=== PATIENT | female | born 1940 | race Caucasian/White ===

== ENCOUNTER 2021-11-23 04:04 | Inpatient (IN) ==
[2021-11-23 05:06] LABS: Basophils # (auto) 0.02 K/uL (0-0.2); Basophils % (auto) 0.2 %; Eosinophils # (auto) 0.12 K/uL (0-0.50); Eosinophils % (auto) 1.4 %; Hematocrit (blood only) 35.5 % (34.1-44.9); Hemoglobin 11.4 g/dl (12.0-16.0); Immature Granulocytes # (auto) 0.04 K/uL (0.00-0.02); Immature Granulocytes % (auto) 0.5 %; Lymphocytes # (auto) 0.45 K/uL (1.2-3.4); Lymphocytes % (auto) 5.4 %; Mean Corpuscular Hemoglobin 29.3 pg (25.0-34.0); Mean Corpuscular Hgb Conc 32.1 g/dL (32.0-36.0); Mean Corpuscular Volume 91.3 fL (80.0-100.0); Mean Platelet Volume 9.7 fL (9.4-12.3); Monocytes # (auto) 1.09 K/uL (0.24-0.82); Monocytes % (auto) 13.1 %; Neutrophils # (auto) 6.57 K/uL (1.4-6.5); Neutrophils % (auto) 79.4 %; Platelet Count 230 K/uL (130-400); RDW Coefficient of Variation 14.1 % (11.5-14.5); RDW Standard Deviation 47.6 fL (36.4-46.3); Red Blood Count 3.89 M/uL (3.93-5.22); White Blood Count 8.29 K/ul (4.8-10.8)
[2021-11-23 05:36] LABS: Troponin I High Sensitivity 3.5 pg/ml (0-14)
[2021-11-23 05:37] LABS: Alanine Aminotransferase 6 U/L (7-52); Albumin Globulin Ratio 1.7 (0.9-2); Alkaline Phosphatase 70 U/L (34-104); Anion Gap 8 (3-11); Aspartate Aminotransferase 14 U/L (13-39); BUN Creatinine Ratio 26.2 (10-20); Bilirubin,Total 0.8 mg/dl (0.2-1.0); Blood Urea Nitrogen 22 mg/dl (6-23); Calcium 9.1 mg/dl (8.5-10.1); Carbon Dioxide 24 mmol/L (21-32); Chloride 102 mmol/L (98-107); Est GFR (African American) 76.1 ml/min; Est GFR (Non-African American) 65.6 ml/min; Globulin 2.3 gm/dl (2.5-4.0); Glucose 149 mg/dl (70-99(Fasting)); Lipase 130 U/L (11-82); Magnesium 1.8 mg/dl (1.7-2.4); Potassium 4.4 mmol/L (3.5-5.1); Sodium 134 mmol/L (136-145); Total Protein 6.3 gm/dl (6.0-8.3)
--- NOTE | 2021-11-23 07:07 | Emergency Department Note ---
History of Present Illness General Chief complaint: Confusion Stated complaint: CONFUSION Time Seen by Provider: 11/23/21 04:33 Source: patient and family Mode of arrival: EMS Limitations: altered mental status History of Present Illness Provider complaint: Weakness, confusion, COVID This is an 81-year-old female presents emergency department with family at bedside due to concern for increasing weakness and confusion. Patient recently tested and found to be COVID-positive, as were several of her family members with whom she is currently staying. Patient is originally from [place] and is here visiting family. They state patient also has a history of Parkinson's disease. No recent change in medications. They state while patient is sometimes weak due to her Parkinson's, she has been worse since her COVID symptoms began. Patient first began having symptoms on Friday and her first test was negative, however they followed up and had testing done yesterday that was positive. Patient admits to cough, nasal congestion, chills, mild chest discomfort, mild abdominal discomfort, 1 episode of diarrhea. Pt seen during a time of high acuity and national emergency pandemic while wearing PPE. Home Medications Medication Instructions Recorded Confirmed Type carbidopa ER 25 mg-levodopa 100 mg 1.5 tab PO QID 04/21/19 11/23/21 History tablet,extended release coenzyme Q10 100 mg capsule (Co 100 mg PO QDL 04/21/19 11/23/21 History Q-10) docusate sodium 100 mg tablet 100 mg PO DAILY 04/21/19 11/23/21 History losartan 25 mg tablet 25 mg PO TID 04/21/19 11/23/21 History metformin 1,000 mg tablet 1,000 mg PO BID 04/21/19 11/23/21 History montelukast 10 mg tablet 10 mg PO PM 04/21/19 11/23/21 History multivitamin 1 tab PO DAILY 04/21/19 11/23/21 History omeprazole 20 mg tablet,delayed 20 mg PO DAILY 04/21/19 11/23/21 History release rosuvastatin 5 mg tablet 5 mg PO DAILY 04/21/19 11/23/21 History albuterol sulfate 90 mcg/actuation 2 puff inhalation Q4H PRN SOB 03/18/20 11/23/21 History aerosol inhaler aspirin 81 mg tablet,delayed 81 mg PO QAM 03/18/20 11/23/21 History release budesonide-formoterol HFA 160 2 puff inhalation BID 03/18/20 11/23/21 History mcg-4.5 mcg/actuation aerosol inhaler (Symbicort) duloxetine 30 mg capsule,delayed 30 mg PO BID 03/18/20 11/23/21 History release umeclidinium 62.5 mcg/actuation 1 inh inhalation QAM 03/18/20 11/23/21 History blister powder for inhalation (Incruse Ellipta) acetaminophen 500 mg tablet 1,000 mg PO BID 05/04/20 11/23/21 History (Tylenol Extra Strength) bisoprolol 5 1 tab PO DAILY 04/28/21 11/23/21 History mg-hydrochlorothiazide 6.25 mg tablet (Ziac) mirabegron 50 mg tablet,extended 50 mg PO DAILY 04/28/21 11/23/21 History release 24 hr (Myrbetriq) nitroglycerin 0.4 mg sublingual 0.4 mg sublingual UD 04/28/21 11/23/21 History tablet rivastigmine 1 patch transdermal UD 04/28/21 11/23/21 History glimepiride 1 mg tablet 1 mg PO DAILY 05/13/21 11/23/21 History sitagliptin 100 mg tablet (Januvia) 100 mg PO BID 05/13/21 11/23/21 History sulfamethoxazole 800 1 tab PO BID 05/13/21 11/23/21 History mg-trimethoprim 160 mg tablet Allergies Allergy/AdvReac Type Severity Reaction Status Date / Time fluconazole Allergy Severe hives,rash,respiratory Unverified 05/13/21 13:28 difficulty hydrochlorothiazide Allergy Severe Rash Unverified 05/13/21 13:28 triamterene Allergy Severe Rash Unverified 05/13/21 13:28 erythromycin base Allergy Intermediate n/a, rash Unverified 05/13/21 13:28 isosorbide Allergy Intermediate head Unverified 05/13/21 13:28 NSAIDS (Non-Steroidal Allergy Intermediate hives,rash Unverified 05/13/21 13:28 Anti-Inflamma amifostine Allergy Unknown Unverified 05/13/21 13:28 fluticasone Allergy Unknown Unverified 05/13/21 13:28 lisinopril Allergy Unknown Unverified 05/13/21 13:28 Penicillins Allergy Unknown Unverified 05/13/21 13:28 ethyl alcohol AdvReac Unknown Unverified 05/13/21 13:28 Past Med/Surg History Medical History (Updated 11/25/21 @ 17:21 by Annmarie Calderon DO) Anxiety Asthma CAD (coronary artery disease) COPD (chronic obstructive pulmonary disease) Diabetes mellitus, type II GERD (gastroesophageal reflux disease) History of TIA (transient ischemic attack) Hyperlipidemia Hypertension Multiple fractures of ribs of left side Parkinson's disease Surgical History (Updated 11/23/21 @ 10:43 by Shruthi Terry PA-C) Hx of appendectomy S/P cholecystectomy Stented coronary artery Family History (Updated 11/23/21 @ 10:43 by Shruthi Terry PA-C) Other Diabetes Heart disease Hypertension Social History (Updated 11/23/21 @ 10:43 by Shruthi Terry PA-C) Smoking Status: Former smoker Tobacco Type: Cigarettes Second Hand Exposure: No; Do You Dip or Chew Tobacco: No; Tobacco Cessation Education Requested by Patient: No Hx Alcohol Use: No Hx Substance Use: No Preferred Language: Czech Communication Ability: Impaired marital status: Single Current Living Situation: Alone current occupational status: retired 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[employer] [place] How many Children do You have: 0 Other Information That Helps Us Care for You: No Feels Safe at Home: Yes Safety Concerns: Feels Safe At This Time Assistive Devices: Walker Review of Systems A total of 10 systems reviewed and were otherwise negative All systems reviewed & are unremarkable except as noted in HPI & below Physical Exam Vital Signs Vital Signs - 24 hr 11/23/21 04:08 11/23/21 04:46 11/23/21 05:00 Temperature 37.1 C Temperature Source Oral Pulse Rate 71 70 69 Pulse Rate from SpO2 Sensor Respiratory Rate 16 23 29 H Respiratory Effort / Characteristics Non-Labored Respiratory Depth Normal Respiratory Pattern Regular Blood Pressure 156/69 H Blood Pressure Mean 98 Blood Pressure Position Sitting Pulse Oximetry 97 Oxygen Delivery Method Room Air Sepsis Recent Fever Within 48 Hours No Sepsis New/Unexplained Change in Mental Status N/A Sepsis Action Taken by Nursing No Action Required 11/23/21 05:30 11/23/21 06:04 11/23/21 06:05 Temperature Temperature Source Pulse Rate 66 Pulse Rate from SpO2 Sensor 74 74 Respiratory Rate 28 H 27 H 25 H Respiratory Effort / Characteristics Respiratory Depth Respiratory Pattern Blood Pressure Blood Pressure Mean Blood Pressure Position Pulse Oximetry 97 98 Oxygen Delivery Method Sepsis Recent Fever Within 48 Hours Sepsis New/Unexplained Change in Mental Status Sepsis Action Taken by Nursing 11/23/21 06:05 11/23/21 06:30 11/23/21 07:00 Temperature Temperature Source Pulse Rate Pulse Rate from SpO2 Sensor 69 Respiratory Rate 26 H 23 Respiratory Effort / Characteristics Respiratory Depth Respiratory Pattern Blood Pressure 172/72 H Blood Pressure Mean 105 Blood Pressure Position Pulse Oximetry 98 Oxygen Delivery Method Sepsis Recent Fever Within 48 Hours Sepsis New/Unexplained Change in Mental Status Sepsis Action Taken by Nursing GENERAL: alert, unwell appearing, well nourished, no distress, non-toxic EYE EXAM: normal conjunctiva, PERRL and EOM's grossly intact OROPHARYNX: no exudate, no erythema, lips, buccal mucosa, and tongue normal and mucous membranes are moist NECK: supple, no nuchal rigidity, no adenopathy, non-tender LUNGS: Clear to auscultation. Normal chest wall mechanics, no w/r/r HEART: no murmurs, S1 normal and S2 normal ABDOMEN: abdomen soft, non-tender, normo-active bowel sounds, no masses, no rebound or guarding. BACK: Back is symmetrical on inspection and there is no deformity, no midline tenderness, no CVA tenderness. SKIN: no rashes and no bruising UPPER EXTREMITIES: upper extremities are grossly normal. FROM, nml pulses b/l. LOWER EXTREMITIES: No pitting edema. FROM, nml pulses b/l. NEURO EXAM: Normal sensorium, cranial nerves II-XII grossly intact, normal speech, no gross weakness of arms, no gross weakness of legs. Gross sensation intact. Course Administered Medications Acetaminophen (Acetaminophen 500 Mg Tab) 1,000 mg PO BID [facility] Stop: 12/23/21 20:59 Last Admin: 11/25/21 08:27 Dose: Not Given Documented By: Admin: 11/24/21 20:48 Dose: Not Given Documented By: Admin: 11/24/21 08:45 Dose: 1,000 mg Documented By: [id number] Admin: 11/23/21 23:14 Dose: 1,000 mg Documented By: ANTONINA Aspirin (Aspirin 81 Mg Ectab) 81 mg PO QAM [facility] Stop: 12/23/21 18:08 Last Admin: 11/25/21 08:21 Dose: 81 mg Documented By: Admin: 11/24/21 08:46 Dose: 81 mg Documented By: [id number] Admin: 11/23/21 23:15 Dose: 81 mg Documented By: ANTONINA Bisoprolol Fumarate (Bisoprolol Fumarate 5 Mg Tab) 5 mg PO DAILY [facility] Stop: 12/24/21 08:59 Last Admin: 11/25/21 08:22 Dose: 5 mg Documented By: Admin: 11/24/21 08:47 Dose: 5 mg Documented By: [id number] Carbidopa/Levodopa (Carbidopa/Levodopa 25/100mg Ext Rel Tab) 1.5 tab PO 1200,1600,2000 [facility] Stop: 12/23/21 19:59 Last Admin: 11/25/21 12:11 Dose: 1.5 tab Documented By: Admin: 11/24/21 20:31 Dose: 1.5 tab Documented By: Admin: 11/24/21 17:25 Dose: 1.5 tab Documented By: [id number] Admin: 11/24/21 12:27 Dose: 1.5 tab Documented By: [id number] Admin: 11/23/21 23:14 Dose: 1.5 tab Documented By: ANTONINA Carbidopa/Levodopa (Carbidopa/Levodopa 25/100mg Ext Rel Tab) 2 tab PO 0800 [facility] Stop: 12/24/21 07:59 Last Admin: 11/25/21 08:23 Dose: 2 tab Documented By: Admin: 11/24/21 08:46 Dose: 2 tab Documented By: [id number] Duloxetine HCl (Duloxetine Hcl 30 Mg Cap) 30 mg PO BID [facility] Stop: 12/23/21 20:59 Last Admin: 11/25/21 08:21 Dose: 30 mg Documented By: Admin: 11/24/21 20:35 Dose: 30 mg Documented By: Admin: 11/24/21 08:45 Dose: 30 mg Documented By: [id number] Admin: 11/23/21 23:15 Dose: 30 mg Documented By: ANTONINA Fluticasone/Vilanterol (Fluticasone/Vilanterol 200/25mcg 14 Puffs/Inhaler) 1 puffs INH DAILY [facility] Stop: 12/24/21 08:59 Last Admin: 11/25/21 08:25 Dose: 1 puffs Documented By: Admin: 11/24/21 08:46 Dose: 1 puffs Documented By: [id number] Heparin Sodium (Porcine) (Heparin Sod 5,000 Unit/0.5 Ml Vial) 5,000 units SQ Q8 [facility] Stop: 12/23/21 21:59 Last Admin: 11/25/21 14:34 Dose: 5,000 units Documented By: Admin: 11/25/21 04:52 Dose: 5,000 units Documented By: Admin: 11/24/21 20:50 Dose: 5,000 units Documented By: Admin: 11/24/21 15:42 Dose: 5,000 units Documented By: [id number] Admin: 11/24/21 05:29 Dose: 5,000 units Documented By: Admin: 11/23/21 23:15 Dose: 5,000 units Documented By: ANTONINA Hydrochlorothiazide (Hydrochlorothiazide 25 Mg Tab) 6.25 mg PO DAILY [facility] Stop: 12/24/21 08:59 Last Admin: 11/25/21 08:22 Dose: 6.25 mg Documented By: Admin: 11/24/21 08:47 Dose: 6.25 mg Documented By: [id number] Insulin Aspart (Insulin Aspart Per Unit) 0 units SC ACHS [facility] Stop: 12/23/21 18:08 Last Admin: 11/25/21 12:24 Dose: 2 units Documented By: CHRIS Co-signed By: [id number] Admin: 11/25/21 09:57 Dose: 1 units Documented By: CHRIS Co-signed By: [id number] Admin: 11/24/21 20:35 Dose: Not Given Documented By: Admin: 11/24/21 17:32 Dose: 2 units Documented By: [id number] Co-signed By: CHRIS Admin: 11/24/21 12:27 Dose: 2 units Documented By: [id number] Co-signed By: CHRIS Admin: 11/24/21 08:45 Dose: Not Given Documented By: [id number] Admin: 11/23/21 23:16 Dose: Not Given Documented By: Admin: 11/23/21 23:16 Dose: Not Given Documented By: ANTONINA Losartan Potassium (Losartan Potassium 25 Mg Tab) 25 mg PO TID [facility] Stop: 12/23/21 18:59 Last Admin: 11/25/21 14:34 Dose: 25 mg Documented By: Admin: 11/25/21 08:21 Dose: 25 mg Documented By: Admin: 11/24/21 20:40 Dose: 25 mg Documented By: Admin: 11/24/21 15:42 Dose: 25 mg Documented By: [id number] Admin: 11/24/21 08:46 Dose: 25 mg Documented By: [id number] Admin: 11/23/21 23:15 Dose: 25 mg Documented By: ANTONINA Mirabegron (Mirabegron Er 25 Mg Tab) 50 mg PO DAILY [facility] Stop: 12/24/21 08:59 Last Admin: 11/25/21 08:23 Dose: 50 mg Documented By: Admin: 11/24/21 08:47 Dose: 50 mg Documented By: [id number] Miscellaneous (Remove Patch) 1 each N/A Q24H [facility] Stop: 12/25/21 08:58 Last Admin: 11/25/21 08:27 Dose: Not Given Documented By: CHRIS Montelukast Sodium (Montelukast Sodium 10 Mg Tablet) 10 mg PO PM [facility] Stop: 12/23/21 20:59 Last Admin: 11/24/21 20:41 Dose: 10 mg Documented By: Admin: 11/23/21 23:15 Dose: 10 mg Documented By: ANTONINA Multivitamins (Multivitamin Tab) 1 tab PO DAILY [facility] Stop: 12/24/21 08:59 Last Admin: 11/25/21 08:23 Dose: 1 tab Documented By: Admin: 11/24/21 08:47 Dose: 1 tab Documented By: [id number] Pantoprazole Sodium (Pantoprazole 40 Mg Tab) 40 mg PO DAILY [facility] Stop: 12/24/21 08:59 Last Admin: 11/25/21 08:23 Dose: 40 mg Documented By: Admin: 11/24/21 08:47 Dose: 40 mg Documented By: [id number] Rivastigmine (Rivastigmine Patch) 1 patch TD Q24H [facility] Stop: 12/25/21 08:59 Last Admin: 11/25/21 08:26 Dose: 1 patch Documented By: CHRIS Rosuvastatin Calcium (Rosuvastatin Calcium 5 Mg Tab) 5 mg PO DAILY [facility] Stop: 12/24/21 08:59 Last Admin: 11/25/21 08:22 Dose: 5 mg Documented By: Admin: 11/24/21 08:47 Dose: 5 mg Documented By: [id number] Umeclidinium Barling (Umeclidinium Barling 62.5mcg/Blister 7 Puffs/Inhaler) 1 puffs INH QAM [facility] Stop: 12/24/21 08:59 Last Admin: 11/25/21 08:25 Dose: 1 puffs Documented By: Admin: 11/24/21 08:47 Dose: 1 puffs Documented By: [id number] Discontinued Medications Bisoprolol Fumarate (Bisoprolol Fumarate 5 Mg Tab) 5 mg PO ONE ONE Stop: 11/23/21 10:31 Last Admin: 11/23/21 12:10 Dose: 5 mg Documented By: SULTANA Carbidopa/Levodopa (Carbidopa/Levodopa 25/100mg Tab) 2 tab PO ONE ONE Stop: 11/23/21 10:31 Last Admin: 11/23/21 12:09 Dose: 2 tab Documented By: SULTANA Duloxetine HCl (Duloxetine Hcl 30 Mg Cap) 30 mg PO ONE ONE Stop: 11/23/21 10:11 Last Admin: 11/23/21 12:08 Dose: 30 mg Documented By: SULTANA Gadobutrol (Gadobutrol 65ml Vial) 8 ml IV ONCE ONE Stop: 11/23/21 18:10 Last Admin: 11/23/21 18:10 Dose: 8 ml Documented By: TAB Hydrochlorothiazide (Hydrochlorothiazide 25 Mg Tab) 6.25 mg PO ONE ONE Stop: 11/23/21 10:16 Last Admin: 11/23/21 12:09 Dose: 6.25 mg Documented By: SULTANA Sodium Chloride (Nss 1000ml) 1,000 mls @ 100 mls/hr IV .Q10H [facility] Stop: 11/23/21 16:13 Last Infusion: 11/23/21 20:33 Dose: 0 mls/hr Documented By: Admin: 11/23/21 07:58 Dose: 125 mls/hr Documented By: DANNY Lorazepam (Lorazepam 2 Mg/1 Ml Vial) 0.5 mg IV NOW STA; Protocol Stop: 11/23/21 10:13 Last Admin: 11/23/21 12:08 Dose: 0.5 mg Documented By: SULTANA Losartan Potassium (Losartan Potassium 25 Mg Tab) 25 mg PO ONE ONE Stop: 11/23/21 10:31 Last Admin: 11/23/21 12:09 Dose: 25 mg Documented By: SULTANA Miscellaneous (Rivastigmine 9.5mg/24 Hour Patch: Order Awaiting Action) 1 each N/A QS [facility] Stop: 12/24/21 07:59 Last Admin: 11/24/21 08:46 Dose: Not Given Documented By: [id number] Medical Decision Making Differential Diagnosis Differential Diagnosis includes but is not limited to dehydration, stroke, anemia, hypoglycemia, hyponatremia, hypernatremia, urinary tract infection, pneumonia, bronchitis, sepsis, gastroenteritis, additional abdominal pathology, metabolic abnormalities and infections. Medical Records Attestation: I reviewed the patient's medical records. Home Medications Current Medication List: was personally reviewed by me Laboratory Data Attestation: I reviewed the patient's lab results. Result diagrams: 11/23/21 04:55 11/25/21 08:23 Lab Results 11/23/21 11/23/21 11/23/21 Range/Units 04:55 04:55 04:55 WBC 8.29 (4.8-10.8) K/ul RBC 3.89 L (3.93-5.22) M/uL Hgb 11.4 L (12.0-16.0) g/dl Hct 35.5 (34.1-44.9) % MCV 91.3 (80.0-100.0) fL MCH 29.3 (25.0-34.0) pg MCHC 32.1 (32.0-36.0) g/dL RDW Std Deviation 47.6 H (36.4-46.3) fL RDW Coeff of Jayden 14.1 (11.5-14.5) % Plt Count 230 (130-400) K/uL MPV 9.7 (9.4-12.3) fL Immature Gran % (Auto) 0.5 % Neut % (Auto) 79.4 % Lymph % (Auto) 5.4 % [place] % (Auto) 13.1 % Eos % (Auto) 1.4 % Baso % (Auto) 0.2 % Neut # (Auto) 6.57 H (1.4-6.5) K/uL Lymph # (Auto) 0.45 L (1.2-3.4) K/uL [place] # (Auto) 1.09 H (0.24-0.82) K/uL Eos # (Auto) 0.12 (0-0.50) K/uL Baso # (Auto) 0.02 (0-0.2) K/uL Immature Gran # (Auto) 0.04 H (0.00-0.02) K/uL Sodium 134 L (136-145) mmol/L Potassium 4.4 (3.5-5.1) mmol/L Chloride 102 (98-107) mmol/L Carbon Dioxide 24 (21-32) mmol/L Anion Gap 8 (3-11) BUN 22 (6-23) mg/dl Creatinine 0.84 (0.6-1.2) mg/dl Est Cr Clr Drug Dosing Not Reportable Est GFR ( Amer) 76.1 ml/min Est GFR (Non-Af Amer) 65.6 ml/min BUN/Creatinine Ratio 26.2 H (10-20) Glucose 149 H (70-99(Fasting)) mg/dl Calcium 9.1 (8.5-10.1) mg/dl Magnesium 1.8 (1.7-2.4) mg/dl Total Bilirubin 0.8 (0.2-1.0) mg/dl AST 14 (13-39) U/L ALT 6 L (7-52) U/L Alkaline Phosphatase 70 (34-104) U/L Troponin I High Sens 3.5 (0-14) pg/ml Total Protein 6.3 (6.0-8.3) gm/dl Albumin 4.0 (3.4-5.0) gm/dl Globulin 2.3 L (2.5-4.0) gm/dl Albumin/Globulin Ratio 1.7 (0.9-2) Lipase 130 H (11-82) U/L TSH 0.569 (0.300-4.500) uIu/ml SARS-CoV-2 (PCR) (Negative) Influenza Type A (PCR) (Neg) Influenza Type B (PCR) (Neg) RSV (RT-PCR) (Neg) 11/23/21 Range/Units 07:26 WBC (4.8-10.8) K/ul RBC (3.93-5.22) M/uL Hgb (12.0-16.0) g/dl Hct (34.1-44.9) % MCV (80.0-100.0) fL MCH (25.0-34.0) pg MCHC (32.0-36.0) g/dL RDW Std Deviation (36.4-46.3) fL RDW Coeff of Jayden (11.5-14.5) % Plt Count (130-400) K/uL MPV (9.4-12.3) fL Immature Gran % (Auto) % Neut % (Auto) % Lymph % (Auto) % [place] % (Auto) % Eos % (Auto) % Baso % (Auto) % Neut # (Auto) (1.4-6.5) K/uL Lymph # (Auto) (1.2-3.4) K/uL [place] # (Auto) (0.24-0.82) K/uL Eos # (Auto) (0-0.50) K/uL Baso # (Auto) (0-0.2) K/uL Immature Gran # (Auto) (0.00-0.02) K/uL Sodium (136-145) mmol/L Potassium (3.5-5.1) mmol/L Chloride (98-107) mmol/L Carbon Dioxide (21-32) mmol/L Anion Gap (3-11) BUN (6-23) mg/dl Creatinine (0.6-1.2) mg/dl Est Cr Clr Drug Dosing Est GFR ( Amer) ml/min Est GFR (Non-Af Amer) ml/min BUN/Creatinine Ratio (10-20) Glucose (70-99(Fasting)) mg/dl Calcium (8.5-10.1) mg/dl Magnesium (1.7-2.4) mg/dl Total Bilirubin (0.2-1.0) mg/dl AST (13-39) U/L ALT (7-52) U/L Alkaline Phosphatase (34-104) U/L Troponin I High Sens (0-14) pg/ml Total Protein (6.0-8.3) gm/dl Albumin (3.4-5.0) gm/dl Globulin (2.5-4.0) gm/dl Albumin/Globulin Ratio (0.9-2) Lipase (11-82) U/L TSH (0.300-4.500) uIu/ml SARS-CoV-2 (PCR) POSITIVE A* (Negative) Influenza Type A (PCR) Negative (Neg) Influenza Type B (PCR) Negative (Neg) RSV (RT-PCR) Negative (Neg) Imaging Data My Impression: X-ray: I interpreted the following studies. Chest: A single view study of the chest was reviewed and was negative for cardiomegaly, focal infiltrate, pulmonary edema, or wide mediastinum. Questionable small left pleural effusion. Radiologist's Impression: Head CT 11/23/21 04:[address] DOSE: 921.40 mGy.cm HISTORY: confusion TECHNIQUE: Multiaxial CT images of the head were performed without the use of intravenous contrast. Automated exposure control was utilized for this study. A dose lowering technique was utilized adhering to the principles of ALARA. Comparison: Head CT 05/13/2021. Findings: The paranasal sinuses and mastoid air cells are clear. The calvarium and skull base are intact. There is no mass, hematoma, midline shift, acute infarct. White matter hypodensity is nonspecific but suggestive of microvascular ischemic change. The ventricles and sulci demonstrate mild age-related involutional changes. Motion artifact. 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 Impression: No significant change compared to the prior study. No acute intracranial abn ormality. Mild motion artifact ACT 112: Negative or not required by law. Electronically signed by: Fermin Chavarria M.D. 11/23/2021 7:[address] head: No acute intracranial hemorrhage. No midline shift or mass-effect. 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 Age- related cerebral volume loss. Periventricular and subcortical white matter hypoattenuation, consistent with chronic microangiopathy. Radiologist: Jairo Arias MD ECG Data Attestation: I personally reviewed and interpreted this ECG as follows: Indication: + weakness Rate (beats per minute): 68 Rhythm: + normal sinus ECG Intervals/blocks: + Normal QRS and + Normal QT ECG [place]: + Normal ECG ST segments: + Nonspecific ST abnormalities MDM Narrative An order was placed for continuous cardiac monitoring. The monitor shows a rate of _62__ with _normal sinus__ rhythm. This is an elderly female who presents for increased weakness and mild confusion with recent +COVID test. Patient lives with family who also tested positive. Patient oriented in the ER and able to answer questions. No focal neuro deficit. VS stable. Labs sent, cxr and CT head performed and reassuring. Gentle IVF hydration started. Case discussed with the hospitalist for additional evaluation/treatment. Impression & Plan Generalized weakness, Hyponatremia, Transient confusion, Hyperglycemia, COVID- 19 Discharge Plan Visit Data Chief Complaint: Confusion Stated Complaint: CONFUSION ED Provider: Annmarie Calderon Discharge Problem: Generalized weakness, Hyponatremia, Transient confusion, Hyperglycemia, COVID- 19 Patient Disposition: Admitted As Inpatient Discharge Instructions Interventions: ED Discharge Assessment Last Done: 11/23/21 10:31
[2021-11-23] MEDS ORDERED: SODIUM CHLORIDE 0.9% 1000ML 1,000 ML IV SCH (07:15)
--- NOTE | 2021-11-23 07:28 | CT Scan Report ---
HEAD CT NONCONTRAST CT DOSE: 921.40 mGy.cm HISTORY: confusion TECHNIQUE: Multiaxial CT images of the head were performed without the use of intravenous contrast. A utomated exposure control was utilized for this study. A dose lowering technique was utilized adheri ng to the principles of ALARA. Comparison: Head CT 05/13/2021. Findings: The paranasal sinuses and mastoid air cells are clear. The calvarium and skull base are int act. There is no mass, hematoma, midline shift, acute infarct. White matter hypodensity is nonspecifi c but suggestive of microvascular ischemic change. The ventricles and sulci demonstrate mild age-rela brayan involutional changes. Motion artifact. 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 Impression: No significant change compared to the prior study. No acute intracranial abnormality. Mild motion art ifact ACT 112: Negative or not required by law. Electronically signed by: Fermin Chavarria M.D. 11/23/2021 7:26 AM
[2021-11-23 08:23] LABS: Influenza A virus by PCR Negative (Neg); Influenza B virus by PCR Negative (Neg); RSV by PCR Negative (Neg)
[2021-11-23 08:25] LABS: SARS CoV2 RNA(COVID-19) InHosp POSITIVE (Negative)
--- NOTE | 2021-11-23 08:51 | XRay Report ---
XR chest 1V portable HISTORY: cough, COVID COMPARISON: Chest and left rib series 05/04/2019. FINDINGS: No pneumothorax. No right pleural effusion. The cardiac silhouette is top normal in size. T here are low lung volumes. No evidence for pulmonary edema. The right lung is clear. Hazy appearance to left lung base with mild blunting of the costophrenic sulcus. This could represent atelectasis, mi ld pneumonitis, or trace left pleural effusion. IMPRESSION: Hazy appearance to left lung base with mild blunting of the costophrenic sulcus. This could represent atelectasis, mild pneumonitis, or trace left pleural effusion. ACT 112: Negative or not required by law. Electronically signed by: Fermin Chavarria M.D. 11/23/2021 8:49 AM
--- NOTE | 2021-11-23 09:06 | History & Physical Report ---
Date of Service November 23, 2021 Assessment & Plan (1) COVID-19: (2) Asthma: (3) COPD (chronic obstructive pulmonary disease): Plan: This is an 81yo F from [place] in town to see family with a PMH of Parkinson's disease, type 2 diabetes, history of TIA, hypertension, CAD, dementia, asthma/COPD, anxiety and other medical problems listed below who presents with cough and congestion as well as confusion over the past few days in the setting of covid. Covid symptoms of congestion and cough x 1 week Saturating at 96% on room air No indication to begin dexamethasone or remdesivir at this time Isolation precautions, continue home inhalers, duo nebs QID PRN for SOB or wh eezing (4) Delirium: (5) Generalized weakness: (6) Parkinson's disease: Plan: Mild component of delirium and generalized weakness present, with underlying Parkinson's disease Per family, patient has "good and bad days" and is seemed more confused with COVID-19 infection Continue reorientation, redirection. Given missed a.m. dose of Sinemet Avoiding Zyprexa due to interaction with Sinemet CT head without acute intracranial abnormality. No focal deficits Fall precautions, PT OT evaluation (7) History of TIA (transient ischemic attack): Plan: Continue aspirin, statin. No focal deficits noted (8) CAD (coronary artery disease): Plan: History of coronary stents in the past few years in [place] Continue aspirin, statin (9) Hypertension: Plan: BP elevated 176/115 in ED in setting of anxiety, delirium and missed a.m. medications Given stat doses of bisoprololhydrochlorothiazide and losartan Continue to monitor blood pressure, add as needed agents if indicated (10) Diabetes mellitus, type II: Plan: Check A1c on a.m. labs Hold home agents SSI while in-patient BSG AC HS (11) Anxiety: Plan: Continue duloxetine. Encourage redirection and reassurance DVT Ppx: SQ heparin Code status: FULL PCP: Patient lives in [place] and is here visiting family Dispo: Admitted to med/surg Patient seen in collaboration with Dr. Field. Please see addendum. History of Present Illness Chief Complaint: confusion, generalized weakness Primary Care Provider: NO PCP This is an 81yo F with a PMH of Parkinson's disease, type 2 diabetes, history of TIA, hypertension, CAD, dementia, asthma/COPD, anxiety and other medical problems listed below who presents with cough and congestion as well as confusion over the past few days. Patient lives in [place] and is visiting her sisters who live locally. Family member started to test positive for COVID last weekend and patient had cough and congestion. Tested positive on 11/20/2021 but began noticing symptoms as early as last weekend. Continues to have malaise, productive cough. Presence of pink-tinged sputum x1 in ED approximately half a teaspoon. Also endorsing generalized weakness and worsened confusion, per sisters at bedside. With underlying Parkinson's dementia, patient has "on and off days" and yesterday was an off day. With both sisters in their 80s also having COVID right now, they feel it is too difficult to care for her at home. Receives all care in [place] where she is from. Denies fall but sometimes needs to crawl into bed due to weakness in setting of Parkinson's. Has not taken any morning medications today. Also endorsing left lower abdominal pain. No fever, chills, chest pain, wheezing, nausea, vomiting, dysuria or diarrhea. Allergies Allergy/AdvReac Type Severity Reaction Status Date / Time fluconazole Allergy Severe hives,rash,respiratory Unverified 05/13/21 13:28 difficulty hydrochlorothiazide Allergy Severe Rash Unverified 05/13/21 13:28 triamterene Allergy Severe Rash Unverified 05/13/21 13:28 erythromycin base Allergy Intermediate n/a, rash Unverified 05/13/21 13:28 isosorbide Allergy Intermediate head Unverified 05/13/21 13:28 NSAIDS (Non-Steroidal Allergy Intermediate hives,rash Unverified 05/13/21 13:28 Anti-Inflamma amifostine Allergy Unknown Unverified 05/13/21 13:28 fluticasone Allergy Unknown Unverified 05/13/21 13:28 lisinopril Allergy Unknown Unverified 05/13/21 13:28 Penicillins Allergy Unknown Unverified 05/13/21 13:28 ethyl alcohol AdvReac Unknown Unverified 05/13/21 13:28 Home Medications Medication Instructions Recorded Confirmed Type carbidopa ER 25 mg-levodopa 100 mg 1.5 tab PO QID 04/21/19 11/23/21 History tablet,extended release coenzyme Q10 100 mg capsule (Co 100 mg PO QDL 04/21/19 11/23/21 History Q-10) docusate sodium 100 mg tablet 100 mg PO DAILY 04/21/19 11/23/21 History losartan 25 mg tablet 25 mg PO TID 04/21/19 11/23/21 History metformin 1,000 mg tablet 1,000 mg PO BID 04/21/19 11/23/21 History montelukast 10 mg tablet 10 mg PO PM 04/21/19 11/23/21 History multivitamin 1 tab PO DAILY 04/21/19 11/23/21 History omeprazole 20 mg tablet,delayed 20 mg PO DAILY 04/21/19 11/23/21 History release rosuvastatin 5 mg tablet 5 mg PO DAILY 04/21/19 11/23/21 History albuterol sulfate 90 mcg/actuation 2 puff inhalation Q4H PRN SOB 03/18/20 11/23/21 History aerosol inhaler aspirin 81 mg tablet,delayed 81 mg PO QAM 03/18/20 11/23/21 History release budesonide-formoterol HFA 160 2 puff inhalation BID 03/18/20 11/23/21 History mcg-4.5 mcg/actuation aerosol inhaler (Symbicort) duloxetine 30 mg capsule,delayed 30 mg PO BID 03/18/20 11/23/21 History release umeclidinium 62.5 mcg/actuation 1 inh inhalation QAM 03/18/20 11/23/21 History blister powder for inhalation (Incruse Ellipta) acetaminophen 500 mg tablet 1,000 mg PO BID 05/04/20 11/23/21 History (Tylenol Extra Strength) bisoprolol 5 1 tab PO DAILY 04/28/21 11/23/21 History mg-hydrochlorothiazide 6.25 mg tablet (Ziac) mirabegron 50 mg tablet,extended 50 mg PO DAILY 04/28/21 11/23/21 History release 24 hr (Myrbetriq) nitroglycerin 0.4 mg sublingual 0.4 mg sublingual UD 04/28/21 11/23/21 History tablet rivastigmine 1 patch transdermal UD 04/28/21 11/23/21 History glimepiride 1 mg tablet 1 mg PO DAILY 05/13/21 11/23/21 History sitagliptin 100 mg tablet (Januvia) 100 mg PO BID 05/13/21 11/23/21 History sulfamethoxazole 800 1 tab PO BID 05/13/21 11/23/21 History mg-trimethoprim 160 mg tablet Past Med/Surg History Medical History (Updated 11/23/21 @ 11:02 by Shruthi Terry PA-C) Anxiety Asthma CAD (coronary artery disease) COPD (chronic obstructive pulmonary disease) Diabetes mellitus, type II GERD (gastroesophageal reflux disease) History of TIA (transient ischemic attack) Hyperlipidemia Hypertension Multiple fractures of ribs of left side Parkinson's disease Surgical History (Updated 11/23/21 @ 10:43 by Shruthi Terry PA-C) Hx of appendectomy S/P cholecystectomy Stented coronary artery Family History (Updated 11/23/21 @ 10:43 by Shruthi Terry PA-C) Other Diabetes Heart disease Hypertension Social History (Updated 11/23/21 @ 10:43 by Shruthi Terry PA-C) Smoking Status: Former smoker Tobacco Type: Cigarettes Second Hand Exposure: No; Do You Dip or Chew Tobacco: No; Tobacco Cessation Education Requested by Patient: No Hx Alcohol Use: No Hx Substance Use: No Preferred Language: Mohawk marital status: / Current Living Situation: Alone current occupational status: retired 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 Physical Exam Physical Exam: General Appearance: WD/WN, vitals as above, NAD, sitting up in bed, pleasant, conversing easily Head: normocephalic, atraumatic Eyes: normal inspection, PERRL, conjunctivae normal, anicteric sclerae ENT: hard of hearing, external ear and nose normal, oropharynx normal Neck: normal visual inspection, trachea midline, no thyromegaly Respiratory: normal respiratory effort, lungs clear to auscultation, no wheeze, rales, rhonchi. No accessory muscle use Cardiovascular: regular rate, rhythm, no murmur, normal peripheral pulses, no BLE edema. Vessels: no JVD Chest: normal inspection of chest Abdomen/GI: normal bowel sounds, soft, nontender, no hepatosplenomegaly Extremities/Musculoskeletal: no cyanosis or clubbing, extremities motor strength 5/5 Neurologic: PERRL, EOMI, accommodation nl, no face palsy, no dysarthria, CN's II-XI intact bilaterally and moves all extremities. +motor delay in setting of PD Psychiatric: A+Ox 2, answers questions appropriately, pleasantly confused with situation Skin: no rashes, normal color, warm/dry Results & Data Results & Data ([facility]) Vital Signs (Past 12 Hours) Vital Signs Temp Pulse Pulse Resp BP BP Pulse Ox 11/23/21 08:00 73 22 157/82 H 95 11/23/21 07:30 24 11/23/21 07:00 23 11/23/21 06:30 26 H 98 11/23/21 06:05 172/72 H 11/23/21 06:05 25 H 98 11/23/21 06:04 27 H 97 11/23/21 05:30 66 28 H 11/23/21 05:00 69 29 H 11/23/21 04:46 70 23 11/23/21 04:08 37.1 C 71 16 156/69 H 97 O2 Del Method 11/23/21 08:00 Room Air 11/23/21 07:30 11/23/21 07:00 11/23/21 06:30 11/23/21 06:05 11/23/21 06:05 11/23/21 06:04 11/23/21 05:30 11/23/21 05:00 11/23/21 04:46 11/23/21 04:08 Room Air Laboratory Results Short CBC 11/23/21 Range/Units 04:55 WBC 8.29 (4.8-10.8) K/ul Hgb 11.4 L (12.0-16.0) g/dl Hct 35.5 (34.1-44.9) % Plt Count 230 (130-400) K/uL BMP 11/23/21 04:55 Sodium 134 L Potassium 4.4 Chloride 102 Carbon Dioxide 24 BUN 22 Creatinine 0.84 Glucose 149 H Calcium 9.1 Liver Function 11/23/21 Range/Units 04:55 Total Bilirubin 0.8 (0.2-1.0) mg/dl AST 14 (13-39) U/L ALT 6 L (7-52) U/L Alkaline Phosphatase 70 (34-104) U/L Albumin 4.0 (3.4-5.0) gm/dl Urine 11/23/21 Range/Units 09:23 Urine Color Yellow Urine Appearance Clear (Clear) Urine pH 6.5 (4.5-7.5) Ur Specific [place] 1.020 (1.000-1.030) Urine Protein Negative (Negative) Urine Glucose (UA) Negative (Negative) Diagnostic Findings Chest X-Ray 11/23/21 04:57 XR chest 1V portable HISTORY: cough, COVID COMPARISON: Chest and left rib series 05/04/2019. FINDINGS: No pneumothorax. No right pleural effusion. The cardiac silhouette is top normal in size. There are low lung volumes. No evidence for pulmonary edema. The right lung is clear. Hazy appearance to left lung base with mild blunting of the costophrenic sulcus. This could represent atelectasis, mild pneumonitis, or trace left pleural effusion. IMPRESSION: Hazy appearance to left lung base with mild blunting of the costophrenic sulcus. This could represent atelectasis, mild pneumonitis, or trace left pleural effusion. ACT 112: Negative or not required by law. Electronically signed by: Fermin Chavarria M.D. 11/23/2021 8:[address] 11/23/21 04:[address] DOSE: 921.40 mGy.cm HISTORY: confusion TECHNIQUE: Multiaxial CT images of the head were performed without the use of intravenous contrast. Automated exposure control was utilized for this study. A dose lowering technique was utilized adhering to the principles of ALARA. Comparison: Head CT 05/13/2021. Findings: The paranasal sinuses and mastoid air cells are clear. The calvarium and skull base are intact. There is no mass, hematoma, midline shift, acute infarct. White matter hypodensity is nonspecific but suggestive of microvascular ischemic change. The ventricles and sulci demonstrate mild age-related involutional changes. Motion artifact. 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 Impression: No significant change compared to the prior study. No acute intracranial abnormality. Mild motion artifact ACT 112: Negative or not required by law. Electronically signed by: Fermin Chavarria M.D. 11/23/2021 7:26 AM Code Status & VTE Plan VTE Prophylaxis Plan VTE Prophylaxis will be ordered: Yes Supervising Physician Co-Signing Physician Notes Patient was seen and examined independently at bedside. Chart reviewed. Case discussed with Shruthi Terry PA-C and agree with the documentation above. In summary, this is a 81 year old female with Parkinson's disease, COPD, cognitive impairment, from [place] but currently visiting her sister here in [place], was brought to the ED for evaluation after she was tested positive for COVID 19. Sisters at bedside who state that the patient being from [place], could not avail the medical care from her doctors in [place] or the patient's sister's doctor here in [place]. They were concerned about her COVID diagnosis on top of her other medical comorbidities and brought to ED for evaluation as they were concerned about her. No fever, chills, dyspnea, hypoxia. COPD at baseline with no wheezes and no exacerbation. Has some cough. During my encounter, she is awake, alert, sitting in bed, following commands, not restless or agitated. Breathing comfortably, saturating well in room air. Decreased breath sounds but no wheezes or crackles. Normal heart sounds, abd benign, no LE edema. Labs reviewed. CXR reviewed. CT head reviewed. In regards to her Parkinson's, she has on and off days and events of last night seemed to be similar to her off day events per family. Continue her parkinson's medications. Delirium precautions. Fall precautions. PT/OT eval. Rest as per the note above.
[2021-11-23 09:55] LABS: Appearance Urine Clear (Clear); Bacteria Urine Automated Negative (Negative); Bilirubin Urine Negative (Negative); Blood Urine Trace (Negative); Cast Urine Automated 0 /lpf (0-5); Color Urine Yellow; Epithelial Cell Urine Auto >30 /lpf (0-5); Glucose Urine UA Negative (Negative); Ketones Urine Negative (Negative); Leukocyte Esterase Urine Negative (Negative); Nitrite Urine Negative (Negative); Protein Urine Negative (Negative); Urobilinogen Urine Negative (Negative); pH Urine 6.5 (4.5-7.5)
[2021-11-23] MEDS ORDERED: DULoxetine HCL 30 MG CAP PO ONE (10:10)
[2021-11-23] MEDS ORDERED: LORazepam 2 MG/1 ML VIAL IV STA (10:12)
[2021-11-23] MEDS ORDERED: hydroCHLOROthiazide 25 MG TAB PO ONE (10:15)
[2021-11-23] MEDS ORDERED: CARBIDOPA/LEVODOPA 25/100MG TAB PO ONE (10:30)
[2021-11-23] MEDS ORDERED: LOSARTAN POTASSIUM 25 MG TAB PO ONE (10:30)
[2021-11-23] MEDS ORDERED: BISOPROLOL FUMARATE 5 MG TAB PO ONE (10:30)
[2021-11-23 14:26] LABS: Base Excess ABG -0.2 mEq/L (-9-1.8); HCO3 ABG 24 mmol/L (19-24); Oxygen Saturation ABG 97.2 % (90-95); PCO2 ABG 37 mmHg (35-46); PO2 ABG 75 mmHg (80-95); pH ABG 7.42 (7.35-7.45)
[2021-11-23 14:30] LABS: Allen Test Pos (Pos)
[2021-11-23] MEDS ORDERED: GLUCOSE 40% GEL 15 GM TUBE PO PRN (18:09)
[2021-11-23] MEDS ORDERED: ONDANSETRON INJ 2 MG/ML 2 ML VIAL IV PRN (18:09)
[2021-11-23] MEDS ORDERED: POLYETHYLENE (MIRALAX) 17 GM PACK PO PRN (18:09)
[2021-11-23] MEDS ORDERED: ALBUTEROL HFA 8 GM INHALER INH PRN (18:09)
[2021-11-23] MEDS ORDERED: DOCUSATE SODIUM 100 MG CAP PO PRN (18:09)
[2021-11-23] MEDS ORDERED: ACETAMINOPHEN 325 MG TAB PO PRN (18:09)
[2021-11-23] MEDS ORDERED: GLUCOSE 10 TAB/TUBE PO PRN (18:09)
[2021-11-23] MEDS ORDERED: DEXTROSE 50% 50 ML SYRINGE IV PRN (18:09)
[2021-11-23] MEDS ORDERED: GADOBUTROL 65ML VIAL IV ONE (18:09)
[2021-11-23] MEDS ORDERED: NON-FORMULARY MEDICATION (Coenzyme Q10 [Co Q-10] 100 mg Capsule) PO SCH (18:09)
[2021-11-23] MEDS ORDERED: CARBOHYDRATES FOR HYPOGLYCEMIA PO PRN (18:09)
[2021-11-23] MEDS ORDERED: GLUCAGON FOR INJ 1 MG VIAL SQ PRN (18:09)
--- NOTE | 2021-11-23 18:33 | Magnetic Resonance Report ---
MRI OF THE BRAIN WITHOUT AND WITH IV CONTRAST CLINICAL HISTORY: Confusion. Evaluate for stroke. COMPARISON STUDY: PET/CT May 13, 2021 and November 23, 2021. TECHNIQUE: Utilizing a 1.5 Chrissie magnet and dedicated coil, multiplanar, multiecho imaging of the br ain was performed pre and postcontrast administration. IV administration of Gadavist contrast was un eventful. FINDINGS: This exam is mildly compromised by motion artifact although is diagnostic. There are no foc i of restricted diffusion to suggest acute infarct. No acute intracranial hemorrhage, midline shift o r mass effect is present. Moderate atrophy is noted. Ventricular system is unremarkable. Basal cister ns are patent. No extra-axial collections are present. Flow-voids for the major intracranial vessels are present. Old left frontal lobe infarct is noted. Numerous white matter T2 hyperintense foci sugge st small vessel disease. Calvarial signal is normal. Tiny air-fluid level within the right maxillary sinus is present. IMPRESSION: 1. No acute intracranial findings. 2. No intracranial mass or pathologic enhancement. 3. Old left frontal lobe infarct. Moderate atrophy and small vessel disease. ACT 112: Negative or not required by law. Electronically signed by: Rj Andrew M.D. 11/23/2021 6:30 PM
--- NOTE | 2021-11-23 21:19 | Electrocardiogram Report ---
Test Reason : Blood Pressure : / mmHG Vent. Rate : 068 BPM Atrial Rate : 068 BPM P-R Int : 156 ms QRS Dur : 090 ms QT Int : 338 ms P-R-T Axes : 049 041 061 degrees QTc Int : 359 ms Poor data quality, interpretation may be adversely affected Normal sinus rhythm Nonspecific ST and T wave abnormality Abnormal ECG No previous ECGs available Confirmed by Zackery Begum ([id number]) on 11/23/2021 9:19:20 PM Referred By: REFERRED SELF Confirmed By:Zackery Begum
[2021-11-23] MEDS: ACETAMINOPHEN 500 MG TAB PO SCH (23:14)
[2021-11-23] MEDS: CARBIDOPA/LEVODOPA 25/100MG EXT REL TAB PO SCH (23:14)
[2021-11-23] MEDS: HEPARIN SOD 5,000 UNIT/0.5 ML VIAL SQ SCH (23:15)
[2021-11-23] MEDS: DULoxetine HCL 30 MG CAP PO SCH (23:15)
[2021-11-23] MEDS: MONTELUKAST SODIUM 10 MG TABLET PO SCH (23:15)
[2021-11-23] MEDS: LOSARTAN POTASSIUM 25 MG TAB PO SCH (23:15)
[2021-11-23] MEDS: ASPIRIN 81 MG ECTAB PO SCH (23:15)
[2021-11-23] MEDS: INSULIN ASPART PER UNIT SC SCH (23:16)
[2021-11-24] MEDS: HEPARIN SOD 5,000 UNIT/0.5 ML VIAL SQ SCH ×3 (05:29→20:50)
[2021-11-24] MEDS: ACETAMINOPHEN 500 MG TAB PO SCH ×2 (08:45→20:48)
[2021-11-24] MEDS: DULoxetine HCL 30 MG CAP PO SCH ×2 (08:45→20:35)
[2021-11-24] MEDS: INSULIN ASPART PER UNIT SC SCH ×4 (08:45→20:35)
[2021-11-24] MEDS: FLUTICASONE/VILANTEROL 200/25MCG 14 PUFFS/INHALER INH SCH (08:46)
[2021-11-24] MEDS: LOSARTAN POTASSIUM 25 MG TAB PO SCH ×3 (08:46→20:40)
[2021-11-24] MEDS: ASPIRIN 81 MG ECTAB PO SCH (08:46)
[2021-11-24] MEDS: CARBIDOPA/LEVODOPA 25/100MG EXT REL TAB PO SCH ×4 (08:46→20:31)
[2021-11-24] MEDS: UMECLIDINIUM BROMIDE 62.5MCG/BLISTER 7 PUFFS/INHALER INH SCH (08:47)
[2021-11-24] MEDS: hydroCHLOROthiazide 25 MG TAB PO SCH (08:47)
[2021-11-24] MEDS: ROSUVASTATIN CALCIUM 5 MG TAB PO SCH (08:47)
[2021-11-24] MEDS: MIRABEGRON ER 25 MG TAB PO SCH (08:47)
[2021-11-24] MEDS: BISOPROLOL FUMARATE 5 MG TAB PO SCH (08:47)
[2021-11-24] MEDS: MULTIVITAMIN TAB PO SCH (08:47)
[2021-11-24] MEDS: PANTOprazole 40 MG TAB PO SCH (08:47)
[2021-11-24 14:11] LABS: Estimated Average Glucose 154 mg/dl
--- NOTE | 2021-11-24 19:40 | Hospitalist Progress Note ---
Date of Service November 24, 2021 Assessment & Plan (1) COVID-19: (2) Asthma: (3) COPD (chronic obstructive pulmonary disease): Plan: This is an 81yo F from [place] in town to see family with a PMH of Parkinson's disease, type 2 diabetes, history of TIA, hypertension, CAD, dementia, asthma/COPD, anxiety and other medical problems listed below who presents with cough and congestion as well as confusion over the past few days in the setting of covid. Present on admission with URI associated with weakness Tested positive for COVID 19 Saturating at 96% on room air No indication to start dexamethasone or remdesivir at this time Isolation precautions, continue home inhalers, duo nebs QID PRN for SOB or wheezing Continue incentive spirometry Continue monitor closely (4) Delirium: (5) Generalized weakness: (6) Parkinson's disease: Plan: As per grand daughter pt has mild confusion and forgetful at baseline with poor ambulatory dysfunction with frequent falls CT head showed no acute finding MRI head showed no acute intracranial finding Continue reorientation, redirection. Avoiding Zyprexa due to interaction with Sinemet PT/OT - pending therapy Falll precaution (7) History of TIA (transient ischemic attack): Plan: Continue aspirin, statin. No focal deficits noted seem to be at baseline (8) CAD (coronary artery disease): Plan: History of coronary stents in the past few years in [place] Continue aspirin, statin (9) Hypertension: Plan: Elevated BP mostly due to hospital setting/anxiety Continue bisoprololhydrochlorothiazide and losartan Continue monitor blood pressure (10) Diabetes mellitus, type II: Plan: Most recent hba1c 7 continue to Hold home agents Continue insulin sliding scale while inpatient Continue monitor BS (11) Anxiety: Plan: Continue duloxetine. Encourage redirection and reassurance DVT Ppx: SQ heparin Code status: FULL Plan to discharge once medical stable Admission and Anticipated Discharge Date Admission Date: November 23, 2021 Subjective Pt was seen and examined for follow up of weakness and COVID 19 Lying in bed with no acute distress watching TV Pt said that she feels ok I spoke to her sister Marly over the phone to provide with update and answered all her questions Pt denies any chest pain, palpitation, dizziness and SOB Review of Systems Review of Systems: All systems reviewed & are unremarkable except as noted in Subjective Physical Exam Physical Exam: General- No acute distress Head- atraumatic Eyes- PERRL, EOMI, ENT- oropharynx clear Neck- supple, no JVD Lungs- clear to auscultation Heart- regular rhythm; no murmur Abdomen- normal bowel sounds, soft, nontender Extremities- no calf tenderness Neuro- alert, oriented x 3; PERRL, EOMI; no facial palsy; no dysarthria Skin- warm & dry Results & Data Results & Data ([facility]) Vital Signs (Past 12 Hours) Vital Signs Temp Pulse Pulse Resp BP Pulse Ox O2 Del Method 11/24/21 17:54 Room Air 11/24/21 17:52 52 L 11/24/21 15:44 36.8 C 58 L 20 146/82 H 95 Room Air 11/24/21 13:24 36.6 C 55 L 18 163/76 H 97 Room Air 11/24/21 10:45 54 L
[2021-11-24] MEDS: MONTELUKAST SODIUM 10 MG TABLET PO SCH (20:41)
[2021-11-25] MEDS: HEPARIN SOD 5,000 UNIT/0.5 ML VIAL SQ SCH ×3 (04:52→21:04)
[2021-11-25] MEDS: ASPIRIN 81 MG ECTAB PO SCH (08:21)
[2021-11-25] MEDS: LOSARTAN POTASSIUM 25 MG TAB PO SCH ×3 (08:21→21:03)
[2021-11-25] MEDS: DULoxetine HCL 30 MG CAP PO SCH ×2 (08:21→21:04)
[2021-11-25] MEDS: hydroCHLOROthiazide 25 MG TAB PO SCH (08:22)
[2021-11-25] MEDS: ROSUVASTATIN CALCIUM 5 MG TAB PO SCH (08:22)
[2021-11-25] MEDS: BISOPROLOL FUMARATE 5 MG TAB PO SCH (08:22)
[2021-11-25] MEDS: CARBIDOPA/LEVODOPA 25/100MG EXT REL TAB PO SCH ×4 (08:23→21:03)
[2021-11-25] MEDS: MULTIVITAMIN TAB PO SCH (08:23)
[2021-11-25] MEDS: MIRABEGRON ER 25 MG TAB PO SCH (08:23)
[2021-11-25] MEDS: PANTOprazole 40 MG TAB PO SCH (08:23)
[2021-11-25] MEDS: FLUTICASONE/VILANTEROL 200/25MCG 14 PUFFS/INHALER INH SCH (08:25)
[2021-11-25] MEDS: UMECLIDINIUM BROMIDE 62.5MCG/BLISTER 7 PUFFS/INHALER INH SCH (08:25)
[2021-11-25] MEDS: RIVASTIGMINE PATCH TD SCH (08:26)
[2021-11-25] MEDS: ACETAMINOPHEN 500 MG TAB PO SCH ×2 (08:27→21:03)
[2021-11-25 09:25] LABS: Calcium 8.5 mg/dl (8.5-10.1); Creatinine Clr Calc Pharmacy 63.5 ml/min; Est GFR (African American) 81.9 ml/min; Est GFR (Non-African American) 70.7 ml/min
[2021-11-25] MEDS: INSULIN ASPART PER UNIT SC SCH ×4 (09:57→20:56)
--- NOTE | 2021-11-25 15:05 | Hospitalist Progress Note ---
Date of Service November 25, 2021 Assessment & Plan (1) COVID-19: (2) Asthma: (3) COPD (chronic obstructive pulmonary disease): Plan: This is an 81yo F [place] in town to see family with a PMH of Parkinson's disease, type 2 diabetes, history of TIA, hypertension, CAD, dementia, asthma/COPD, anxiety and other medical problems listed below who presents with cough and congestion as well as confusion over the past few days in the setting of covid. Present on admission with URI associated with weakness Tested positive for COVID 19 Saturating at 96% on room air No indication to start dexamethasone or remdesivir at this time Isolation precautions, continue home inhalers, duo nebs QID PRN for SOB or wheezing Continue incentive spirometry Clinically stable (4) Delirium: (5) Generalized weakness: (6) Parkinson's disease: Plan: As per grand daughter pt has mild confusion and forgetful at baseline with poor ambulatory dysfunction with frequent falls CT head showed no acute finding MRI head showed no acute intracranial finding Continue reorientation, redirection. Avoiding Zyprexa due to interaction with Sinemet PT recommended inpatient therapy at [facility] Spoke to sister Marly about inpatient rehab. She said patient had therapy schedule in [place]. She would like [place]. I spoke to her about HH with PT while pt is in [place]. she wants to know more about it and discuss with J[facility] case management was notified Fall precaution (7) History of TIA (transient ischemic attack): Plan: Continue aspirin, statin. No focal deficits noted seem to be at baseline (8) CAD (coronary artery disease): Plan: History of coronary stents in the past few years in [place] Continue aspirin, statin (9) Hypertension: Plan: BP fluctiuated mostly due to hospital setting/anxiety Continue bisoprololhydrochlorothiazide and losartan Continue monitor blood pressure (10) Diabetes mellitus, type II: Plan: Most recent hba1c 7 on (11/24/21) continue to Hold home agents Continue insulin sliding scale while inpatient Continue monitor BS (11) Anxiety: Plan: Continue duloxetine. Encourage redirection and reassurance DVT Ppx: SQ heparin Code status: FULL Plan to discharge tomorrow Spoke to Sister Marly ( ) Admission and Anticipated Discharge Date Admission Date: November 23, 2021 Subjective Pt was seen and examined for follow up of weakness and COVID 19 Lying in bed with no acute distress watching TV She feels much better today and she was more talkative She was able to work with therapy I spoke to her sister Marly over the phone again to provide with update and answered all her questions Pt denies any chest pain, palpitation, dizziness and SOB Review of Systems Review of Systems: All systems reviewed & are unremarkable except as noted in Subjective Physical Exam Physical Exam: General- No acute distress Head- atraumatic Eyes- PERRL, EOMI, ENT- oropharynx clear Neck- supple, no JVD Lungs- clear to auscultation Heart- regular rhythm; no murmur Abdomen- normal bowel sounds, soft, nontender Extremities- no calf tenderness Neuro- alert, oriented x 3; PERRL, EOMI; no facial palsy; no dysarthria Skin- warm & dry Results & Data Results & Data ([facility]) Vital Signs (Past 12 Hours) Vital Signs Temp Pulse Pulse Resp BP Pulse Ox O2 Del Method 11/25/21 12:01 36.3 C L 72 16 132/66 94 Room Air 11/25/21 08:09 36.7 C 62 16 194/75 H 95 Room Air 11/25/21 07:13 60 11/25/21 03:43 36.7 C 58 L 16 150/71 H 96 Room Air
[2021-11-25] MEDS: MONTELUKAST SODIUM 10 MG TABLET PO SCH (21:04)
[2021-11-25] MEDS ORDERED: LOSARTAN POTASSIUM 25 MG TAB PO STA (22:48)
[2021-11-26] MEDS: HEPARIN SOD 5,000 UNIT/0.5 ML VIAL SQ SCH ×2 (06:07→12:58)
[2021-11-26] MEDS: RIVASTIGMINE PATCH TD SCH (08:05)
[2021-11-26] MEDS: hydroCHLOROthiazide 25 MG TAB PO SCH (08:06)
[2021-11-26] MEDS: CARBIDOPA/LEVODOPA 25/100MG EXT REL TAB PO SCH ×3 (08:06→16:56)
[2021-11-26] MEDS: MULTIVITAMIN TAB PO SCH (08:08)
[2021-11-26] MEDS: BISOPROLOL FUMARATE 5 MG TAB PO SCH (08:08)
[2021-11-26] MEDS: DULoxetine HCL 30 MG CAP PO SCH (08:08)
[2021-11-26] MEDS: PANTOprazole 40 MG TAB PO SCH (08:08)
[2021-11-26] MEDS: ASPIRIN 81 MG ECTAB PO SCH (08:08)
[2021-11-26] MEDS: MIRABEGRON ER 25 MG TAB PO SCH (08:09)
[2021-11-26] MEDS: ROSUVASTATIN CALCIUM 5 MG TAB PO SCH (08:09)
[2021-11-26] MEDS: UMECLIDINIUM BROMIDE 62.5MCG/BLISTER 7 PUFFS/INHALER INH SCH (08:09)
[2021-11-26] MEDS: FLUTICASONE/VILANTEROL 200/25MCG 14 PUFFS/INHALER INH SCH (08:09)
[2021-11-26] MEDS: ACETAMINOPHEN 500 MG TAB PO SCH (08:49)
[2021-11-26] MEDS: INSULIN ASPART PER UNIT SC SCH ×2 (08:53→13:03)
[2021-11-26] MEDS ORDERED: LOSARTAN POTASSIUM 50 MG TAB PO SCH (09:00)
--- NOTE | 2021-11-26 17:05 | Discharge Summary ---
Date of Service November 26, 2021 Admission HPI Per Admitting Provider This is an 81yo F with a PMH of Parkinson's disease, type 2 diabetes, history of TIA, hypertension, CAD, dementia, asthma/COPD, anxiety and other medical problems listed below who presents with cough and congestion as well as confusion over the past few days. Patient lives in [place] and is visiting her sisters who live locally. Family member started to test positive for COVID last weekend and patient had cough and congestion. Tested positive on 11/20/2021 but began noticing symptoms as early as last weekend. Continues to have malaise, productive cough. Presence of pink-tinged sputum x1 in ED approximately half a teaspoon. Also endorsing generalized weakness and worsened confusion, per sisters at bedside. With underlying Parkinson's dementia, patient has "on and off days" and yesterday was an off day. With both sisters in their 80s also having COVID right now, they feel it is too difficult to care for her at home. Receives all care in [place] where she is from. Denies fall but sometimes needs to crawl into bed due to weakness in setting of Parkinson's. Has not taken any morning medications today. Also endorsing left lower abdominal pain. No fever, chills, chest pain, wheezing, nausea, vomiting, dysuria or diarrhea. Admission Exam Per Admitting Provider Chief Complaint: confusion, generalized weakness Primary Care Provider: NO PCP This is an 81yo F with a PMH of Parkinson's disease, type 2 diabetes, history of TIA, hypertension, CAD, dementia, asthma/COPD, anxiety and other medical problems listed below who presents with cough and congestion as well as confusion over the past few days. Patient lives in [place] and is visiting her sisters who live locally. Family member started to test positive for COVID last weekend and patient had cough and congestion. Tested positive on 11/20/2021 but began noticing symptoms as early as last weekend. Continues to have malaise, productive cough. Presence of pink-tinged sputum x1 in ED approximately half a teaspoon. Also endorsing generalized weakness and worsened confusion, per sisters at bedside. With underlying Parkinson's dementia, patient has "on and off days" and yesterday was an off day. With both sisters in their 80s also having COVID right now, they feel it is too difficult to care for her at home. Receives all care in [place] where she is from. Denies fall but sometimes needs to crawl into bed due to weakness in setting of Parkinson's. Has not taken any morning medications today. Also endorsing left lower abdominal pain. No fever, chills, chest pain, wheezing, nausea, vomiting, dysuria or diarrhea. Principal Diagnosis COVID-19: Asthma: COPD (chronic obstructive pulmonary disease): Delirium: Generalized weakness: Parkinson's disease: History of TIA (transient ischemic attack): CAD (coronary artery disease): Hypertension: Diabetes mellitus, type II: Anxiety: Discharge Exam General- No acute distress Head- atraumatic Eyes- PERRL, EOMI, ENT- oropharynx clear Neck- supple, no JVD Lungs- clear to auscultation Heart- regular rhythm; no murmur Abdomen- normal bowel sounds, soft, nontender Extremities- no calf tenderness Neuro- alert, oriented x 3; PERRL, EOMI; no facial palsy; no dysarthria Skin- warm & dry Discharge Data Allergies Allergy/AdvReac Type Severity Reaction Status Date / Time fluconazole Allergy Severe hives,rash,respiratory Unverified 05/13/21 13:28 difficulty hydrochlorothiazide Allergy Severe Rash Unverified 05/13/21 13:28 triamterene Allergy Severe Rash Unverified 05/13/21 13:28 erythromycin base Allergy Intermediate n/a, rash Unverified 05/13/21 13:28 isosorbide Allergy Intermediate head Unverified 05/13/21 13:28 NSAIDS (Non-Steroidal Allergy Intermediate hives,rash Unverified 05/13/21 13:28 Anti-Inflamma amifostine Allergy Unknown Unverified 05/13/21 13:28 fluticasone Allergy Unknown Unverified 05/13/21 13:28 lisinopril Allergy Unknown Unverified 05/13/21 13:28 Penicillins Allergy Unknown Unverified 05/13/21 13:28 ethyl alcohol AdvReac Unknown Unverified 05/13/21 13:28 Consultations 11/23/21 07:53 ED Decision to Admit Stat Ordered Studies 11/23/21 04:57 CT head/brain wo con Urgent 11/23/21 13:34 MRI Brain [MR brain wo/w con] Stat MRI OF THE BRAIN WITHOUT AND WITH IV CONTRAST CLINICAL HISTORY: Confusion. Evaluate for stroke. COMPARISON STUDY: PET/CT May 13, 2021 and November 23, 2021. TECHNIQUE: Utilizing a 1.5 Chrissie magnet and dedicated coil, multiplanar, multiecho imaging of the brain was performed pre and postcontrast administration. IV administration of Gadavist contrast was uneventful. FINDINGS: This exam is mildly compromised by motion artifact although is diagnostic. There are no foci of restricted diffusion to suggest acute infarct. No acute intracranial hemorrhage, midline shift or mass effect is present. Moderate atrophy is noted. Ventricular system is unremarkable. Basal cisterns are patent. No extra-axial collections are present. Flow-voids for the major intracranial vessels are present. Old left frontal lobe infarct is noted. Numerous white matter T2 hyperintense foci suggest small vessel disease. Calvarial signal is normal. Tiny air-fluid level within the right maxillary sinus is present. IMPRESSION: 1. No acute intracranial findings. 2. No intracranial mass or pathologic enhancement. 3. Old left frontal lobe infarct. Moderate atrophy and small vessel disease. ACT 112: Negative or not required by law. Electronically signed by: Rj Andrew M.D. 11/23/2021 6:30 PM Dictated:11/23/211823 Transcribed: 11/23/211823 HEAD CT NONCONTRAST CT DOSE: 921.40 mGy.cm HISTORY: confusion TECHNIQUE: Multiaxial CT images of the head were performed without the use of intravenous contrast. Automated exposure control was utilized for this study. A dose lowering technique was utilized adhering to the principles of ALARA. Comparison: Head CT 05/13/2021. Findings: The paranasal sinuses and mastoid air cells are clear. The calvarium and skull base are intact. There is no mass, hematoma, midline shift, acute infarct. White matter hypodensity is nonspecific but suggestive of microvascular ischemic change. The ventricles and sulci demonstrate mild age-related involutional changes. Motion artifact. 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 Impression: No significant change compared to the prior study. No acute intracranial abnormality. Mild motion artifact ACT 112: Negative or not required by law. Electronically signed by: Fermin Chavarria M.D. 11/23/2021 7:26 AM Dictated:11/23/21724 Transcribed: 11/23/21724 XR chest 1V portable HISTORY: cough, COVID COMPARISON: Chest and left rib series 05/04/2019. FINDINGS: No pneumothorax. No right pleural effusion. The cardiac silhouette is top normal in size. There are low lung volumes. No evidence for pulmonary edema. The right lung is clear. Hazy appearance to left lung base with mild blunting of the costophrenic sulcus. This could represent atelectasis, mild pneumonitis, or trace left pleural effusion. IMPRESSION: Hazy appearance to left lung base with mild blunting of the costophrenic sulcus. This could represent atelectasis, mild pneumonitis, or trace left pleural effusion. ACT 112: Negative or not required by law. Electronically signed by: Fermin Chavarria M.D. 11/23/2021 8:49 AM Dictated:11/23/21847 Transcribed: 11/23/21847 Hospital Course (1) COVID-19: (2) Asthma: (3) COPD (chronic obstructive pulmonary disease): This is an 81yo F from [place] in town to see family with a PMH of Parkinson's disease, type 2 diabetes, history of TIA, hypertension, CAD, dementia, asthma/COPD, anxiety and other medical problems listed below who presents with cough and congestion as well as confusion over the past few days in the setting of covid. Present on admission with URI associated with weakness Tested positive for COVID 19 Saturating at 96% on room air No indication to start dexamethasone or remdesivir at this time Isolation precautions, continue home inhalers, duo nebs QID PRN for SOB or wheezing Continue incentive spirometry Clinically stable (4) Delirium: (5) Generalized weakness: (6) Parkinson's disease: As per grand daughter pt has mild confusion and forgetful at baseline with poor ambulatory dysfunction with frequent falls CT head showed no acute finding MRI head showed no acute intracranial finding Continue reorientation, redirection. Avoiding Zyprexa due to interaction with Sinemet PT recommended inpatient therapy at [facility] Spoke to sister Marly about inpatient rehab. She said patient had therapy schedule in [place]. [place] I spoke to her about HH with PT while pt is in [place]. she wants to know more about it and discuss with [facility] case management was notified Plan to go home with HH services Fall precaution (7) History of TIA (transient ischemic attack): Continue aspirin, statin. 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 Encourage redirection and reassurance DVT Ppx: SQ heparin Code status: FULL Disposition Will discharge home today with home health Spoke to Sister Marly ( ) Total Time Total Time Spent Total Time Spent (In Minutes): 35 minutes Discharge Plan Discharge Items Patient Disposition: Home - Home Health Services Reason For Visit: AMS, WEAKNESS, COVID Discharge Diagnosis: COVID-19: Asthma: COPD (chronic obstructive pulmonary disease): Delirium: Generalized weakness: Parkinson's disease: History of TIA (transient ischemic attack): CAD (coronary artery disease): Hypertension: Diabetes mellitus, type II: Anxiety: Activity: Resume your previous activity Non-emergency contact: Primary Care Provider Call non-emergency contact if: you have any medication questions Follow-up/Referrals: Edwige Mcdaniel MD [Outside Practitioners] - (Date & Time 12/03/2021 11:20 AM Provider Edwige Mcdaniel MD Department [facility] [address] [place] [address] ) Diet: Carb Consistent or DM2 Addtl Attending Provider Instructions: Follow up with primary care provider 12/03/2021 @ 11:20 AM Edwige Mcdaniel MD Department [facility] [address], [place] [address] Continue physical and occupation therapy Continue to wear mask and practice social distance Seek medical attention if you develop any shortness of breath Fall precaution Your blood pressure medication Losartan increased to 50mg twice a day Continue monitor your blood pressure and bring your blood pressure log at your next appointment with your provider Continue incentive spirometry Home Isolation COVID-19 Instructions The following information about Home Isolation is from the CDC Website: https://www.cdc.gov/coronavirus/2019-ncov/hcp/delmmmta-epkmuzj-erhvje.html Stay home except to get medical care People who are mildly ill with COVID-19 are able to isolate at home during their illness. You should restrict activities outside your home, except for getting medical care. Do not go to work, school, or public areas. Avoid using public transportation, ride-sharing, or taxis. Separate yourself from other people and animals in your home People: As much as possible, you should stay in a specific room and away from other people in your home. Also, you should use a separate bathroom, if available. Animals: You should restrict contact with pets and other animals while you are sick with COVID-19, just like you would around other people. Although there have not been reports of pets or other animals becoming sick with COVID-19, it is still recommended that people sick with COVID-19 limit contact with animals until more information is known about the virus. When possible, have another member of your household care for your animals while you are sick. If you are sick with COVID-19, avoid contact with your pet, including petting, snuggling, being kissed or licked, and sharing food. If you must care for your pet or be around animals while you are sick, wash your hands before and after you interact with pets and wear a face mask. Call ahead before visiting your doctor If you have a medical appointment, call the healthcare provider and tell them that you have or may have COVID-19. This will help the healthcare providers office take steps to keep other people from getting infected or exposed. Wear a face mask You should wear a face mask when you are around other people (e.g., sharing a room or vehicle) or pets and before you enter a healthcare providers office. If you are not able to wear a face mask (for example, because it causes trouble breathing), then people who live with you should not stay in the same room with you, or they should wear a face mask if they enter your room. Cover your coughs and sneezes Cover your mouth and nose with a tissue when you cough or sneeze. Throw used tissues in a lined trash can. Immediately wash your hands with soap and water for at least 20 seconds or, if soap and water are not available, clean your hands with an alcohol-based hand etl consultant that contains at least 60% alcohol. Clean your hands often Wash your hands often with soap and water for at least 20 seconds, especially after blowing your nose, coughing, or sneezing; going to the bathroom; and bef ore eating or preparing food. If soap and water are not readily available, use an alcohol-based hand etl consultant with at least 60% alcohol, covering all surfaces of your hands and rubbing them together until they feel dry. Soap and water are the best option if hands are visibly dirty. Avoid touching your eyes, nose, and mouth with unwashed hands. Avoid sharing personal household items You should not share dishes, drinking glasses, cups, eating utensils, towels, or bedding with other people or pets in your home. After using these items, they should be washed thoroughly with soap and water. Clean all high-touch surfaces everyday High touch surfaces include counters, tabletops, doorknobs, bathroom fixtures, toilets, phones, keyboards, tablets, and bedside tables. Also, clean any surfaces that may have blood, stool, or body fluids on them. Use a household cleaning spray or wipe, according to the label instructions. Labels contain instructions for safe and effective use of the cleaning product including precautions you should take when applying the product, such as wearing gloves and making sure you have good ventilation during use of the product. Monitor your symptoms Seek prompt medical attention if your illness is worsening (e.g., difficulty breathing).Beforeseeking care, call your healthcare provider and tell them that you have, or are being evaluated for, COVID-19. Put on a face mask before you enter the facility. These steps will help the healthcare providers office to keep other people in the office or waiting room from getting infected or exposed. Ask your healthcare provider to call the local or state health department. Persons who are placed under active monitoring or facilitated self- monitoring should follow instructions provided by their local health department or occupational health professionals, as appropriate. When working with your local health department check their available hours. If you have a medical emergency and need to call 911, notify the dispatch personnel that you have, or are being evaluated for COVID-19. If possible, put on a face mask before emergency medical services arrive. Discontinuing home isolation Patients with confirmed COVID-19 should remain under home isolation precautions until the risk of secondary transmission to others is thought to be low. The decision to discontinue home isolation precautions should be made on a iohc-qy-kwap basis, in consultation with healthcare providers and state and local health departments. Coronavirus disease 2019 (COVID-19) is a virus that causes a respiratory illness. It is caused by a coronavirus called 2019 novel coronavirus (2019-nCoV). There are many types of coronavirus. Coronaviruses are a very common cause of bronchitis. They may sometimes cause lung infection(pneumonia). Symptoms can range from mild to severe respiratory illness. These viruses are also foundin some animals. COVID-19 was first found in people in [facility], in late 2018. In 2019, several cases of COVID-19 have been confirmed in the [place] Public health officials are working to find the source. How the virus spreads is not yet fully known. It may be spread through droplets of fluid that a person coughs or sneezes into the air. It may be spread if you touch a surface with virus on it, such as a handle or object, and then touch your mouth. What are the symptoms of COVID-19? Some people have no symptoms or mild symptoms. Symptoms may appear 2 to 14 days after contact with the virus. Symptoms can include: Fever Coughing Trouble breathing What are possible complications from COVID-19? In many cases, this virus can cause infection (pneumonia) in both lungs. In some cases, this can cause . How is COVID-19 diagnosed? Your healthcare provider will ask about your symptoms. He or she will also ask about your recent travel and contact with sick people. Testing for the virus is only done through the CDC. If yourhealthcare provider thinks you may have COVID-19, he or she will work with your local health department and the CDC on testing. Follow all instructions from your healthcare provider. COVID-19 is diagnosed by: Nasal and throat swab. A cotton-tipped swab is wiped inside your nose or throat. This is done to check for viruses in your nasal mucus. Sputum culture. A small sample of mucus coughed from your lungs (sputum) is collected if you have a cough. It is checked for the virus. How is COVID-19 treated? There is currently no medicine to treat the virus. Treatment is done to help your body while it fights the virus. This is known as supportive care. Supportive care may include: Pain medicine. These include acetaminophen and ibuprofen. They are used to help ease pain and reduce fever. Bed rest. This helps your body fight the illness. For severe illness, you may need to stay in the hospital. Care during severe illness may include: IV (intravenous) fluids.These are given through a vein to help keep your body hydrated. Oxygen. Supplemental oxygen or ventilation with a breathing machine (ventilator) may be given. This is done to keep enough oxygen in your body. Are you at risk for COVID-19? If youve been to a place where people have been sick with this virus, you are at risk for infection. You are at risk if you: Recently traveled to an affected area Had contact with a sick person who recently traveled to this area Had contact with a person who was diagnosed with COVID-19 How can COVID-19 be prevented? There is no vaccine yet. The best prevention is to not have contact with the virus. The CDC advises that people should not travel to areas where there are COVID-19 outbreaks right now for any reason that is not urgent. To help prevent spreading the infection, wash your hands often, or use an alcohol-basedhand etl consultant. If you are in an area with COVID-19: Wash your hands often. Or use an alcohol-based hand etl consultant often. Only touch your eyes, nose, or mouth with clean hands. Dont have contact with people who are sick. Follow local instructions about being in public. For example, you may be told to not use public transport for a period of time. Stay away from markets that have live or animals. Wash your hands after touching any animals. Don't touch animals that may be sick. Dont share eating or drinking tools with sick people. Dont kiss someone who is sick. Clean surfaces often with disinfectant. If you were in an area with COVID-19 in the last 14 days: Call your healthcare provider. He or she can talk with local health staff to see what action may be needed. Follow all instructions from your provider. Take your temperature every morning and evening for at least 14 days. This is to check for fever. Keep a record of the readings. Keep watch for symptoms of the virus. Tell your provider right away if you have symptoms. If you were in an area with COVID-19 and have a fever or other symptoms: Dont panic. Keep in mind that other illnesses can cause similar symptoms. Stay away from work, school, and public places. Limit physical contact with family members. Don't kiss anyone or share eating or drinking utensils. Clean surfaces you touch with disinfectant. This is to help prevent the virus from spreading. Call your healthcare provider. Explain that you have been exposed to COVID-19 and have symptoms. Do this before going to any hospital. Wait for instructions. Keep in mind that healthcare staff may wear protective equipment such as ma sks, gowns, gloves, and eye protection. You may be put in a separate room. This is to prevent the possible virus from spreading. Tell the healthcare staff about recent travel. This includes local travel on public transport. Staff may need to find other people you have been in contact with. Follow all instructions the healthcare staff give you. If you have been diagnosed with COVID-19 Follow all instructions from your healthcare provider. Dont leave your home, except to get medical care. Call your healthcare providers office before going. They can prepare and give you instructions. This will help prevent the virus from spreading. Dont go to work, school, or public areas. Dont use public transport or taxis. Stay away from other people in your home. Have them wear face masks around you. Dont share household items or food. Wear a face mask if you can. This includes at home or in a medical facility. Cover your face with a tissue when you cough or sneeze. Throw the tissue away. Wash your hands. Wash your hands often. Caregivers should: Follow all instructions from healthcare staff. Wear a face mask and protective clothing as advised. Wash hands often. Keep track of the sick persons symptoms. Clean surfaces, fabrics, and laundry thoroughly. Keep other people away from the sick person. When to call your healthcare provider Call your healthcare provider: If youve recently traveled and have symptoms If you have been diagnosed with COVID-19 and your symptoms are worse To learn more To find out more about COVID-19, visit the CDC website at www.cdc.gov/coronavirus/2019-ncov/index.html. 3746-9322 [facility]. [address] [place] [address]. All rights reserved. This information is not intended as a substitute for professional medical care. Always follow your healthcare professional's instructions. This information has been adapted from [employer] Pending Studies at Discharge: No Stand-Alone Forms: My [facility], Smoking Cessation Medications and DC Order Prescriptions: New losartan 50 mg Tablet 50 mg PO BID 30 Days Qty: 60 0RF Continued aspirin 81 mg Tablet,Delayed Release (Dr/Ec) 81 mg PO QAM albuterol sulfate 90 mcg/actuation HFA aerosol inhaler 2 puff INHALATION Q4H PRN (Reason: SOB ) duloxetine 30 mg capsule,delayed release(DR/EC) 30 mg PO BID budesonide-formoterol [Symbicort] 160-4.5 mcg/actuation HFA aerosol inhaler 2 puff INHALATION BID Incruse Ellipta 62.5 mcg/actuation blister with device 1 inh INHALATION QAM multivitamin Tablet 1 tab PO DAILY carbidopa-levodopa 25-100 mg Tablet Extended Release 1.5 tab PO QID Rx Instructions: 2 tabs at 0800, 1.5 tab at 1200, 1.5 tab 1600, 1.5 tab 2000 metformin 1,000 mg Tablet 1,000 mg PO BID montelukast 10 mg Tablet 10 mg PO PM docusate sodium 100 mg Tablet 100 mg PO DAILY coenzyme Q10 [Co Q-10] 100 mg Capsule 100 mg PO QDL rosuvastatin 5 mg Tablet 5 mg PO DAILY omeprazole 20 mg Tablet,Delayed Release (Dr/Ec) 20 mg PO DAILY acetaminophen [Tylenol Extra Strength] 500 mg Tablet 1,000 mg PO BID glimepiride 1 mg tablet 1 mg PO DAILY Januvia 100 mg tablet 100 mg PO BID bisoprolol-hydrochlorothiazide [Ziac] 5-6.25 mg tablet 1 tab PO DAILY nitroglycerin 0.4 mg Tablet, Sublingual 0.4 mg sublingual UD rivastigmine 9.5 mg/24 hour patch 24 hour 1 patch transdermal UD Myrbetriq 50 mg Tablet Extended Release 24 Hr 50 mg PO DAILY Discontinued losartan 25 mg Tablet 25 mg PO TID Discharge Orders: Discharge Order (Routine); Ordered 11/26/21 Ordered By: Imer Bernal Admission Data Admit Date/Time: 11/23/21 08:48 Attending Provider: Imer Bernal Admit Provider: Elías Field Primary Care Provider: PCP,NO Other Providers: Imer Bernal ; Elías Field ; [facility]
== END 2021-11-26 18:17 | disposition home health service (06) | DRG 179 ==
LOC: ED 04:04 → EDINP 08:48 → SUATTDRO 08:48 → 2N 10:31

== ENCOUNTER 2022-01-27 19:33 | Inpatient (IN) ==
[2022-01-27] MEDS ORDERED: ACETAMINOPHEN 500 MG TAB PO STA (20:05)
--- NOTE | 2022-01-27 20:14 | Emergency Department Note ---
Impression & Plan Generalized weakness, Abdominal pain, lower, Acute pain of right hip, CHI (closed head injury), Cervical strain, acute ED Provider Note INFORMANT: Family and patient ED PROVIDER(S): Case Horta MD CHIEF COMPLAINT: Fall PLAN: Disposition: Admitted Condition: Good Outpatient prescription management: none Referral: None MEDICAL DECISION MAKING: Patient presented because of a fall but has been declining with increased weakness and issues with lower abdominal pain. She had complaint of headache and neck pain as well as the pain. A large work-up was performed. Patient had COVID testing performed. She had head CT, cervical spine CT and imaging of the abdomen pelvis/hip performed. Blood work and urinalysis obtained. Patient was gently hydrated and was given Tylenol. The patient had a negative head CT, cervical spine CT and no acute process noted in the abdomen or hip. Patient's blood work shows mild dehydration and urinalysis was unremarkable. Family noted the patient is currently on Bactrim for UTI. Nursing did note that the patient requires to people for lifting and ambulating safely. They were very concerned for her ability to safely go home. I discussed this with patient and family. They were in agreement about staying in the hospital. Patient will need PT and OT consultation. No beds are available for inpatient rehab at [facility] per the manager rn case. [facility]. Patient was evaluated in the ER for further management. Triage Nursing notes reviewed and agree them. Vital Signs: reviewed and remarkable for mild hypertension Differential diagnosis: Closed head injury, fracture, dislocation, SDH/SAH, infection, dehydration, metabolic abnormality, hypo/hyperglycemia, electrolyte disturbance, anemia, hypoxia, cardiac sources, intracerebral event, toxicologic, neurologic, as well as other pathologies. Diagnostics interpreted by me: ECG: Twelve-lead ECG reveals a normal sinus rhythm at 66 bpm. Nonspecific anterolateral T wave abnormality. No ST elevation or depression. No PVCs. Cardiac Monitoring: Cardiac monitoring ordered by me: The patient was placed on continuous cardiac monitoring and observed. It revealed a normal sinus rhythm at 61 beats per minute without ectopy or evidence of dysrhythmia. Imaging studies: CT scans as noted above. Chest x-ray. Findings: A chest x-ray was performed and revealed no pneumothorax, effusion, infiltrate, pulmonary edema, free air under the diaphragm, or wide mediastinum. Impression: No acute disease. HPI: The patient is a 81year old female who presents to the Emergency Room with complaints of a fall. This started just prior to arrival and is described as walking and falling backwards hitting her head on the car. Patient was with her family. Witnessed fall. Family states that she has been getting weak and also complaining of lower abdominal pain.. The patient also notes the following associated symptoms, headache, neck pain, right hip pain. The patient has has been given no medication for relieving factors. Current pain is rated as 5/10. Patient denies any other injury. Pt denies LOC, fevers, chills, diaphoresis, visual changes, chest pain, breathing difficulties, nausea, vomiting, abdominal pain, back pain, melena, hematochezia, urinary symptoms, numbness, lymphadenopathy, rash, or other complaints. ROS: See above HPI for pertinent positives & negatives. A total of 10 systems reviewed and were otherwise negative. PAST MEDICAL HISTORY:See Below , Parkinson's disease PAST SURGICAL HISTORY:See Below, FAMILY HISTORY:See Below SOCIAL HISTORY:See Below, retired. Patient is living with her sister. They are visiting from [place]. HOME MEDICATIONS:See Below ALLERGIES:See Below VITALS:See Below PHYSICAL EXAMINATION: GENERAL: Awake, alert,. Tjr-[id number]-bmioaabiv, in no distress HENT: Normocephalic, atraumatic. Oropharynx unremarkable. EYES: Normal conjunctiva. Sclera non-icteric. NECK: Inspection normal. Mild lower paraspinal muscles are-tender. Supple. No nuchal rigidity. FROM. No masses. RESPIRATORY: Clear to auscultation. No wheezes. No rales. Mildly increased respiratory effort. CARDIAC: Normal rate. Normal rhythm. No murmurs. No rubs. Extremities warm and well perfused. Pulses equal. No JVD. GI: Soft, non-distended. No tenderness to palpation. No rebound or guarding. No masses. RECTAL: Deferred. MUSCULOSKELETAL: Upper extremities and left lower extremity are atraumatic. There is some tenderness and limited range of motion about the right hip. No shortening or external rotation. Chest examination reveals no tenderness. The back is kyphotic on inspection without obvious abnormality. There is no CVA tenderness to palpation. No joint edema. LOWER EXTREMITIES: Calves are equal size bilaterally and non-tender. No edema. No discoloration. NEURO: Normal sensorium. Generally weak but no focal sensory or motor deficits noted. SKIN: No rash or jaundice noted. Case Horta MD Past Med/Surg History Medical History Anxiety Asthma CAD (coronary artery disease) COPD (chronic obstructive pulmonary disease) COVID-19 Delirium Diabetes mellitus, type II Generalized weakness GERD (gastroesophageal reflux disease) History of TIA (transient ischemic attack) Hyperlipidemia Hypertension Multiple fractures of ribs of left side Parkinson's disease Transient confusion Surgical History Hx of appendectomy S/P cholecystectomy Stented coronary artery Family History Other Diabetes Heart disease Hypertension Social History Smoking Status: Former smoker Tobacco Type: Cigarettes Second Hand Exposure: No; Hx Alcohol Use: No Hx Substance Use: No Preferred Language: Russian Communication Ability: Impaired marital status: Single Current Living Situation: Alone current occupational status: retired 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[place], [place] How many Children do You have: 0 Feels Safe at Home: Yes Assistive Devices: Walker Allergies Allergies Allergy/AdvReac Type Severity Reaction Status Date / Time fluconazole Allergy Severe hives,rash,respiratory Unverified 05/13/21 13:28 difficulty hydrochlorothiazide Allergy Severe Rash Unverified 05/13/21 13:28 triamterene Allergy Severe Rash Unverified 05/13/21 13:28 erythromycin base Allergy Intermediate n/a, rash Unverified 05/13/21 13:28 isosorbide Allergy Intermediate head Unverified 05/13/21 13:28 NSAIDS (Non-Steroidal Allergy Intermediate hives,rash Unverified 05/13/21 13:28 Anti-Inflamma amifostine Allergy Unknown Unverified 05/13/21 13:28 fluticasone Allergy Unknown Unverified 05/13/21 13:28 lisinopril Allergy Unknown Unverified 05/13/21 13:28 Penicillins Allergy Unknown Unverified 05/13/21 13:28 ethyl alcohol AdvReac Unknown Unverified 05/13/21 13:28 Home Meds Home Medications Medication Instructions Recorded Confirmed carbidopa ER 25 mg-levodopa 100 mg 1.5 tab PO QID 04/21/19 11/23/21 tablet,extended release coenzyme Q10 100 mg capsule (Co 100 mg PO QDL 04/21/19 11/23/21 Q-10) docusate sodium 100 mg tablet 100 mg PO DAILY 04/21/19 11/23/21 metformin 1,000 mg tablet 1,000 mg PO BID 04/21/19 11/23/21 montelukast 10 mg tablet 10 mg PO PM 04/21/19 11/23/21 multivitamin 1 tab PO DAILY 04/21/19 11/23/21 omeprazole 20 mg tablet,delayed 20 mg PO DAILY 04/21/19 11/23/21 release rosuvastatin 5 mg tablet 5 mg PO DAILY 04/21/19 11/23/21 albuterol sulfate 90 mcg/actuation 2 puff inhalation Q4H PRN SOB 03/18/20 11/23/21 aerosol inhaler aspirin 81 mg tablet,delayed 81 mg PO QAM 03/18/20 11/23/21 release budesonide-formoterol HFA 160 2 puff inhalation BID 03/18/20 11/23/21 mcg-4.5 mcg/actuation aerosol inhaler (Symbicort) duloxetine 30 mg capsule,delayed 30 mg PO BID 03/18/20 11/23/21 release umeclidinium 62.5 mcg/actuation 1 inh inhalation QAM 03/18/20 11/23/21 blister powder for inhalation (Incruse Ellipta) acetaminophen 500 mg tablet 1,000 mg PO BID 05/04/20 11/23/21 (Tylenol Extra Strength) bisoprolol 5 1 tab PO DAILY 04/28/21 11/23/21 mg-hydrochlorothiazide 6.25 mg tablet (Ziac) mirabegron 50 mg tablet,extended 50 mg PO DAILY 04/28/21 11/23/21 release 24 hr (Myrbetriq) nitroglycerin 0.4 mg sublingual 0.4 mg sublingual UD 04/28/21 11/23/21 tablet rivastigmine 9.5 mg/24 hour 1 patch transdermal UD 04/28/21 11/23/21 transdermal patch glimepiride 1 mg tablet 1 mg PO DAILY 05/13/21 11/23/21 sitagliptin 100 mg tablet (Januvia) 100 mg PO BID 05/13/21 11/23/21 Results & Data (ED) Vital Signs Vital Signs - 24 hr 01/27/22 19:41 01/27/22 20:16 01/27/22 21:14 Temperature 36.8 C Temperature Source Temporal Artery Scan Pulse Rate 74 61 Pulse Rate from SpO2 Sensor 61 Respiratory Rate 20 24 Respiratory Depth Normal Blood Pressure 166/78 H Blood Pressure Mean 107 Pulse Oximetry 97 97 96 Oxygen Delivery Method Room Air Room Air Sepsis Recent Fever Within 48 Hours No Sepsis New/Unexplained Change in Mental Status N/A Sepsis Action Taken by Nursing No Action Required 01/27/22 21:15 01/27/22 21:15 01/27/22 21:20 Temperature Temperature Source Pulse Rate 59 L 61 Pulse Rate from SpO2 Sensor 61 61 Respiratory Rate 22 22 Respiratory Depth Blood Pressure 150/72 H Blood Pressure Mean 98 Pulse Oximetry 97 95 Oxygen Delivery Method Sepsis Recent Fever Within 48 Hours Sepsis New/Unexplained Change in Mental Status Sepsis Action Taken by Nursing 01/27/22 21:30 01/27/22 21:30 Temperature Temperature Source Pulse Rate 61 Pulse Rate from SpO2 Sensor 62 Respiratory Rate 20 Respiratory Depth Blood Pressure 160/69 H Blood Pressure Mean 99 Pulse Oximetry 95 Oxygen Delivery Method Sepsis Recent Fever Within 48 Hours Sepsis New/Unexplained Change in Mental Status Sepsis Action Taken by Nursing Laboratory Data Result diagrams: 01/27/22 20:13 01/27/22 20:13 Lab Results 01/27/22 01/27/22 01/27/22 Range/Units 20:13 20:13 20:13 WBC 7.21 (4.8-10.8) K/ul RBC 3.98 (3.93-5.22) M/uL Hgb 11.9 L (12.0-16.0) g/dl Hct 36.0 (34.1-44.9) % MCV 90.5 (80.0-100.0) fL MCH 29.9 (25.0-34.0) pg MCHC 33.1 (32.0-36.0) g/dL RDW Std Deviation 47.0 H (36.4-46.3) fL RDW Coeff of Jayden 14.1 (11.5-14.5) % Plt Count 265 (130-400) K/uL MPV 9.7 (9.4-12.3) fL Immature Gran % (Auto) 0.1 % Neut % (Auto) 68.2 % Lymph % (Auto) 17.9 % Dyer % (Auto) 10.3 % Eos % (Auto) 3.2 % Baso % (Auto) 0.3 % Neut # (Auto) 4.92 (1.4-6.5) K/uL Lymph # (Auto) 1.29 (1.2-3.4) K/uL Dyer # (Auto) 0.74 (0.24-0.82) K/uL Eos # (Auto) 0.23 (0-0.50) K/uL Baso # (Auto) 0.02 (0-0.2) K/uL Immature Gran # (Auto) 0.01 (0.00-0.02) K/uL Sodium 138 (136-145) mmol/L Potassium 4.5 (3.5-5.1) mmol/L Chloride 105 (98-107) mmol/L Carbon Dioxide 25 (21-32) mmol/L Anion Gap 8 (3-11) BUN 22 (6-23) mg/dl Creatinine 1.04 (0.6-1.2) mg/dl Est Cr Clr Drug Dosing 45.8 ml/min Est GFR ( Amer) 58.8 ml/min Est GFR (Non-Af Amer) 50.7 ml/min BUN/Creatinine Ratio 21.2 H (10-20) Glucose 198 H (70-99(Fasting)) mg/dl Calcium 9.2 (8.5-10.1) mg/dl Magnesium 2.0 (1.7-2.4) mg/dl Total Bilirubin 0.5 (0.2-1.0) mg/dl AST 10 L (13-39) U/L ALT 3 L (7-52) U/L Alkaline Phosphatase 70 (34-104) U/L Troponin I High Sens 4.0 (0-14) pg/ml Total Protein 5.8 L (6.0-8.3) gm/dl Albumin 3.8 (3.4-5.0) gm/dl Globulin 2.0 L (2.5-4.0) gm/dl Albumin/Globulin Ratio 1.9 (0.9-2) TSH 0.818 (0.300-4.500) uIu/ml Urine Color Urine Appearance (Clear) Urine pH (4.5-7.5) Ur Specific Chauncey (1.000-1.030) Urine Protein (Negative) Urine Glucose (UA) (Negative) Urine Ketones (Negative) Urine Blood (Negative) Urine Nitrite (Negative) Urine Bilirubin (Negative) Urine Urobilinogen (Negative) Ur Leukocyte Esterase (Negative) Urine WBC (Auto) (0-5) /hpf Urine RBC (Auto) (0-4) /hpf U Hyaline Cast (Auto) (0-5) /lpf U Epithel Cells (Auto) (0-5) /lpf Urine Bacteria (Auto) (Negative) SARS-CoV-2, RNA, NAAT (NEGATIVE) 01/27/22 01/27/22 Range/Units 20:13 20:13 WBC (4.8-10.8) K/ul RBC (3.93-5.22) M/uL Hgb (12.0-16.0) g/dl Hct (34.1-44.9) % MCV (80.0-100.0) fL MCH (25.0-34.0) pg MCHC (32.0-36.0) g/dL RDW Std Deviation (36.4-46.3) fL RDW Coeff of Jayden (11.5-14.5) % Plt Count (130-400) K/uL MPV (9.4-12.3) fL Immature Gran % (Auto) % Neut % (Auto) % Lymph % (Auto) % Dyer % (Auto) % Eos % (Auto) % Baso % (Auto) % Neut # (Auto) (1.4-6.5) K/uL Lymph # (Auto) (1.2-3.4) K/uL Dyer # (Auto) (0.24-0.82) K/uL Eos # (Auto) (0-0.50) K/uL Baso # (Auto) (0-0.2) K/uL Immature Gran # (Auto) (0.00-0.02) K/uL Sodium (136-145) mmol/L Potassium (3.5-5.1) mmol/L Chloride (98-107) mmol/L Carbon Dioxide (21-32) mmol/L Anion Gap (3-11) BUN (6-23) mg/dl Creatinine (0.6-1.2) mg/dl Est Cr Clr Drug Dosing ml/min Est GFR ( Amer) ml/min Est GFR (Non-Af Amer) ml/min BUN/Creatinine Ratio (10-20) Glucose (70-99(Fasting)) mg/dl Calcium (8.5-10.1) mg/dl Magnesium (1.7-2.4) mg/dl Total Bilirubin (0.2-1.0) mg/dl AST (13-39) U/L ALT (7-52) U/L Alkaline Phosphatase (34-104) U/L Troponin I High Sens (0-14) pg/ml Total Protein (6.0-8.3) gm/dl Albumin (3.4-5.0) gm/dl Globulin (2.5-4.0) gm/dl Albumin/Globulin Ratio (0.9-2) TSH (0.300-4.500) uIu/ml Urine Color Yellow Urine Appearance Clear (Clear) Urine pH 6.0 (4.5-7.5) Ur Specific Chauncey 1.024 (1.000-1.030) Urine Protein Negative (Negative) Urine Glucose (UA) Negative (Negative) Urine Ketones Trace H (Negative) Urine Blood Negative (Negative) Urine Nitrite Negative (Negative) Urine Bilirubin Negative (Negative) Urine Urobilinogen Negative (Negative) Ur Leukocyte Esterase Trace H (Negative) Urine WBC (Auto) 1-5 (0-5) /hpf Urine RBC (Auto) 0-4 (0-4) /hpf U Hyaline Cast (Auto) 0 (0-5) /lpf U Epithel Cells (Auto) 10-20 H (0-5) /lpf Urine Bacteria (Auto) Negative (Negative) SARS-CoV-2, RNA, NAAT NEGATIVE (NEGATIVE) Administered Medications Sodium Chloride (Nss 1000ml) 1,000 mls @ 125 mls/hr IV .Q8H ROXANNE Stop: 01/28/22 04:14 Last Admin: 01/27/22 21:01 Dose: 125 mls/hr Documented By: [id number] Discontinued Medications Acetaminophen (Acetaminophen 500 Mg Tab) 1,000 mg PO NOW STA Stop: 01/27/22 20:06 Last Admin: 01/27/22 21:01 Dose: Not Given Documented By: [id number] Discharge Plan Visit Data Chief Complaint: Fall Stated Complaint: FALL, HIT HEAD, ED Provider: Case Horta Discharge Problem: Generalized weakness, Abdominal pain, lower, Acute pain of right hip, CHI (closed head injury), Cervical strain, acute Forms Stand Alone Forms: My [facility] Prescriptions Prescriptions: No Action aspirin 81 mg Tablet,Delayed Release (Dr/Ec) 81 mg PO QAM albuterol sulfate 90 mcg/actuation HFA aerosol inhaler 2 puff INHALATION Q4H PRN (Reason: SOB ) duloxetine 30 mg capsule,delayed release(DR/EC) 30 mg PO BID budesonide-formoterol [Symbicort] 160-4.5 mcg/actuation HFA aerosol inhaler 2 puff INHALATION BID Incruse Ellipta 62.5 mcg/actuation blister with device 1 inh INHALATION QAM multivitamin Tablet 1 tab PO DAILY carbidopa-levodopa 25-100 mg Tablet Extended Release 1.5 tab PO QID Rx Instructions: 2 tabs at 0800, 1.5 tab at 1200, 1.5 tab 1600, 1.5 tab 2000 metformin 1,000 mg Tablet 1,000 mg PO BID montelukast 10 mg Tablet 10 mg PO PM docusate sodium 100 mg Tablet 100 mg PO DAILY coenzyme Q10 [Co Q-10] 100 mg Capsule 100 mg PO QDL rosuvastatin 5 mg Tablet 5 mg PO DAILY omeprazole 20 mg Tablet,Delayed Release (Dr/Ec) 20 mg PO DAILY acetaminophen [Tylenol Extra Strength] 500 mg Tablet 1,000 mg PO BID glimepiride 1 mg tablet 1 mg PO DAILY Januvia 100 mg tablet 100 mg PO BID bisoprolol-hydrochlorothiazide [Ziac] 5-6.25 mg tablet 1 tab PO DAILY nitroglycerin 0.4 mg Tablet, Sublingual 0.4 mg sublingual UD rivastigmine 9.5 mg/24 hour patch 24 hour 1 patch transdermal UD Myrbetriq 50 mg Tablet Extended Release 24 Hr 50 mg PO DAILY Referrals Referrals: PCP,NO [Physician] -
[2022-01-27] MEDS ORDERED: SODIUM CHLORIDE 0.9% 1000ML 1,000 ML IV SCH (20:15)
[2022-01-27 20:39] LABS: Basophils # (auto) 0.02 K/uL (0-0.2); Basophils % (auto) 0.3 %; Eosinophils # (auto) 0.23 K/uL (0-0.50); Eosinophils % (auto) 3.2 %; Hemoglobin 11.9 g/dl (12.0-16.0); Immature Granulocytes # (auto) 0.01 K/uL (0.00-0.02); Immature Granulocytes % (auto) 0.1 %; Lymphocytes # (auto) 1.29 K/uL (1.2-3.4); Lymphocytes % (auto) 17.9 %; Mean Corpuscular Hemoglobin 29.9 pg (25.0-34.0); Mean Corpuscular Hgb Conc 33.1 g/dL (32.0-36.0); Mean Corpuscular Volume 90.5 fL (80.0-100.0); Mean Platelet Volume 9.7 fL (9.4-12.3); Monocytes # (auto) 0.74 K/uL (0.24-0.82); Monocytes % (auto) 10.3 %; Neutrophils # (auto) 4.92 K/uL (1.4-6.5); Neutrophils % (auto) 68.2 %; Platelet Count 265 K/uL (130-400); RDW Coefficient of Variation 14.1 % (11.5-14.5); Red Blood Count 3.98 M/uL (3.93-5.22); White Blood Count 7.21 K/ul (4.8-10.8)
[2022-01-27 21:06] LABS: Appearance Urine Clear (Clear); Bacteria Urine Automated Negative (Negative); Bilirubin Urine Negative (Negative); Blood Urine Negative (Negative); Cast Urine Automated 0 /lpf (0-5); Color Urine Yellow; Glucose Urine UA Negative (Negative); Ketones Urine Trace (Negative); Leukocyte Esterase Urine Trace (Negative); Nitrite Urine Negative (Negative); Protein Urine Negative (Negative); RBC Urine Automated 0-4 /hpf (0-4); Specific Gravity Urine 1.024 (1.000-1.030); Urobilinogen Urine Negative (Negative)
[2022-01-27 21:14] LABS: Albumin Globulin Ratio 1.9 (0.9-2); Albumin Level 3.8 gm/dl (3.4-5.0); BUN Creatinine Ratio 21.2 (10-20); Bilirubin,Total 0.5 mg/dl (0.2-1.0); Calcium 9.2 mg/dl (8.5-10.1); Creatinine Clr Calc Pharmacy 45.8 ml/min; Est GFR (African American) 58.8 ml/min; Est GFR (Non-African American) 50.7 ml/min; Potassium 4.5 mmol/L (3.5-5.1); Total Protein 5.8 gm/dl (6.0-8.3)
[2022-01-28] MEDS ORDERED: SODIUM CHLORIDE 0.9% 1000ML 1,000 ML IV SCH (00:29)
[2022-01-28] MEDS ORDERED: POLYETHYLENE (MIRALAX) 17 GM PACK PO PRN (00:29)
[2022-01-28] MEDS ORDERED: LOSARTAN POTASSIUM 25 MG TAB PO STA (00:31)
[2022-01-28] MEDS ORDERED: SULFAMETHOXAZOLE/TRIMETHOPRIM DS 800/160MG TAB PO ONE (00:31)
[2022-01-28] MEDS ORDERED: CARBIDOPA/LEVODOPA 25/100MG TAB PO ONE (00:32)
[2022-01-28] MEDS ORDERED: DULoxetine HCL 30 MG CAP PO ONE (00:32)
[2022-01-28] MEDS ORDERED: FLUTICASONE FUROATE 100MCG 14 PUFFS/INHALER INH ONE (00:45)
[2022-01-28] MEDS ORDERED: ALUMINUM/MAGNESIUM SUSP 30 ML UDC PO PRN (00:54)
[2022-01-28] MEDS ORDERED: DOCUSATE SODIUM 100 MG CAP PO PRN (00:55)
[2022-01-28] MEDS ORDERED: NITROGLYCERIN SL 0.4 MG/TAB TAB SL PRN (01:00)
--- NOTE | 2022-01-28 05:04 | History and Physical Report ---
DATE OF ADMISSION: 01/27/2022. CHIEF COMPLAINT: Falls and weakness. HISTORY OF PRESENT ILLNESS: This is an 81-year-old female with past medical history significant for Parkinson's disease, type 2 diabetes, history of TIA, hypertension, CAD, dementia, asthma, COPD, anxiety, who was brought in because of frequent falls. The patient lives in [place], currently visiting her sisters who live locally. The patient was in the hospital in the end of October and November for COVID. She did okay at that time. The patient was trying to go to sister's house today and she fell backwards, hit her head in the car in the garage, that is the reason she was brought in here. She was in the ER a few days back also with a complaint of fall. Because of Parkinson's disease, she is having rigidity in the lower extremities and having ambulatory dysfunction . When outside she uses walker, but at home, she does not use a walker. Currently, resting comfortably, hemodynamically stable. Her imaging studies are okay in the ER, but she was having difficulty ambulating in the ER, that is the reason she was getting admitted for possible PT, OT and placement. As per the sister, the patient, because of Parkinson's, she has on and off days. On off days, she seems confused. Today is on day. The patient is somewhat slow to answer questions, but is alert and oriented. Currently has some headache and some neck pain, no blurred visions, no runny nose, no sore throat, occasional cough, no difficulty swallowing. Appetite is okay. Denies any chest pain, no shortness of breath. Has some mild abdominal discomfort, has chronic back pain. Somewhat constipated. Normal bladder movements. Hemodynamically stable. ALLERGIES: FLUCONAZOLE, HYDROCHLOROTHIAZIDE, TRIAMTERENE, ERYTHROMYCIN, ISOSORBIDE, NSAIDS, AMIFOSTINE, FLUTICASONE, LISINOPRIL, PENICILLIN, ETHYL ALCOHOL. PAST MEDICAL HISTORY: As mentioned above. PAST SURGICAL HISTORY: History of appendectomy, status post cholecystectomy, cardiac catheterization and stent placement. FAMILY HISTORY: Significant for diabetes, heart disease and hypertension. SOCIAL HISTORY: Currently living with her sister. No smoking history. No alcohol. REVIEW OF SYSTEMS: As per HPI. Rest of the systems is negative. PHYSICAL EXAMINATION: GENERAL: The patient is old and frail, not in acute distress. VITAL SIGNS: Temperature 36.6, pulse 63, respiratory rate 20, blood pressure 167/77, oxygen 95% on room air. HEENT: Pupils equal, round and reactive to light. Oral mucosa moist. NECK: No JVD, no neck masses. CARDIOVASCULAR: S1 and S2 heard. Regular rate and rhythm. No murmur, no gallop. RESPIRATORY SYSTEM: Normal AP diameter. No accessory muscle use. No wheezing, no crackles. ABDOMEN: Soft, bowel sounds present. Mild abdominal discomfort. No guarding. No rigidity, no distention. CENTRAL NERVOUS SYSTEM: Alert and oriented x3. Speech is okay. No facial droop. Obeys simple commands. Moves extremities. EXTREMITIES: No edema, no erythema seen. LABORATORY DATA: WBC 7., hemoglobin 11.9, hematocrit 36, platelets 265. Sodium 138, potassium 4.5, chloride 105, bicarbonate 25, BUN 22, creatinine 1.04, serum glucose 198, calcium 9.2, magnesium 2, total bilirubin 0.5, AST 10, ALT 3, alkaline phosphatase 72. Troponin I high sensitivity 4. TSH 0.8. Urinalysis, trace leukocyte esterase. SARS-CoV-2 rapid test negative. IMAGING DATA: Hip CT, preliminary report, no acute findings. No soft tissue hematoma. Chest x-ray, no acute findings. Cervical spine CT, reveals osteopenia, degenerative changes at C1-C2 and C4-T1. No acute findings. CT of abdomen and pelvis preliminary report, no acute findings. Questionable opacity in right lung base on the CAT scan on the preliminary report. CT of the head, no acute findings. EKG: Normal sinus rhythm at a rate of 66. No acute ST changes seen. ASSESSMENT AND PLAN: This is a 79-year-old female with history of Parkinson's presents with frequent falls and weakness. 1. Frequent falls, weakness: Recently diagnosed with urinary tract infection. She is on Bactrim, 3 more days to go. History of Parkinson's. We will do PT, OT. Social service to help with discharge planning, may require rehab. 2. History of Parkinson's: Continue her home medications. 3. History of chronic obstructive pulmonary disease: Currently stable. Continue her home inhalers. 4. History of hypertension: On bisoprolol/hctz, losartan. Will monitor the blood pressure. 5. History of coronary artery disease, status post stent: On aspirin, statin and beta melissa. Currently stable. 6. Diabetes: Hold glimepiride and metformin. Place on sliding scale. Follow the blood sugars. 7. History of TIA: On aspirin, statin. 8. Urinary incontinence: Myrbetriq. 9. Hyperlipidemia: On statin. 10. Parkinson's: The patient has on and off days. We will monitor for delirium. 11. Anxiety: On duloxetine. 12. Deep venous thrombosis prophylaxis: Placed on heparin subcutaneous. CODE STATUS: Full code as discussed with her sisters. DISPOSITION: Admit to medical floor. PT/OT. Social service to help with discharge planning. Job ID: [id number] [id number]
[2022-01-28] MEDS: HEPARIN SOD 5,000 UNIT/0.5 ML VIAL SQ SCH ×3 (06:12→21:22)
--- NOTE | 2022-01-28 07:08 | CT Scan Report ---
CT OF THE CERVICAL SPINE WITHOUT CONTRAST CLINICAL HISTORY: fall, neck pain COMPARISON STUDY: Cervical spine CT January 22, 2022. TECHNIQUE: Helical axial images of the cervical spine were obtained without IV contrast. Sagittal a nd coronal reconstructions were viewed. Automated exposure control was utilized for the study. A do se lowering technique was utilized adhering to the principles of ALARA. FINDINGS: There is reversal of the normal cervical lordosis, similar to prior exam. Vertebral body he ights are maintained. No acute cervical spine fracture or subluxation is present. There is no prevert ebral edema. Facet joints are intact. Moderate multilevel degenerative changes are present. Asymmetr ic left lobe thyroid nodule is again noted. IMPRESSION: No acute cervical spine fracture or subluxation. ACT 112: Negative or not required by law. Electronically signed by: Rj Andrew M.D. 01/28/2022 7:06 AM
--- NOTE | 2022-01-28 07:13 | CT Scan Report ---
CT SCAN OF THE BRAIN WITHOUT IV CONTRAST CLINICAL HISTORY: Fall. COMPARISON STUDY: CT of the brain dated 01/22/2022. TECHNIQUE: Unenhanced axial CT scan of the brain is performed from the vertex to the skull base. A do se lowering technique was utilized adhering to the principles of ALARA. CT DOSE: 1739.34 mGy.cm FINDINGS: Brain parenchyma: A focus of left frontal encephalomalacia is consistent with a remote infarct. There is age-related involutional change noting moderate patchy subcortical and periventricular microangio pathic disease. There is no hemorrhage, mass effect, or evidence of acute territorial ischemia by CT criteria. De Jesus-white matter differentiation is preserved. No extra-axial fluid collection is seen. Ventricles, sulci, cisterns: Prominent secondary to involutional change. Intracranial vasculature: There is atherosclerotic calcification of the cavernous carotid and vertebr al arteries. Calvarium: The skeletal structures are osteopenic. No depressed calvarial fracture is seen. Sinuses and mastoids: Mucosal thickening is noted in the right maxillary antrum. The remaining visual ized paranasal sinuses are clear. The mastoid air cells are well pneumatized. Orbits: The bony orbits are grossly intact. There are bilateral ocular lens implants. IMPRESSION: There is no hemorrhage, mass effect, or evidence of acute territorial ischemia by CT [facility]. ACT 112: Negative or not required by law. Electronically signed by: Bal Bishop M.D. 01/28/2022 7:11 AM
[2022-01-28 07:33] LABS: Basophils # (auto) 0.02 K/uL (0-0.2); Basophils % (auto) 0.3 %; Eosinophils # (auto) 0.25 K/uL (0-0.50); Eosinophils % (auto) 3.7 %; Hematocrit (blood only) 35.2 % (34.1-44.9); Hemoglobin 11.3 g/dl (12.0-16.0); Immature Granulocytes # (auto) 0.02 K/uL (0.00-0.02); Immature Granulocytes % (auto) 0.3 %; Lymphocytes # (auto) 1.41 K/uL (1.2-3.4); Lymphocytes % (auto) 21.1 %; Mean Corpuscular Hemoglobin 29.6 pg (25.0-34.0); Mean Corpuscular Hgb Conc 32.1 g/dL (32.0-36.0); Mean Corpuscular Volume 92.1 fL (80.0-100.0); Mean Platelet Volume 9.9 fL (9.4-12.3); Monocytes # (auto) 0.85 K/uL (0.24-0.82); Monocytes % (auto) 12.7 %; Neutrophils # (auto) 4.13 K/uL (1.4-6.5); Neutrophils % (auto) 61.9 %; Platelet Count 244 K/uL (130-400); RDW Coefficient of Variation 14.3 % (11.5-14.5); RDW Standard Deviation 48.2 fL (36.4-46.3); Red Blood Count 3.82 M/uL (3.93-5.22); White Blood Count 6.68 K/ul (4.8-10.8)
--- NOTE | 2022-01-28 07:34 | CT Scan Report ---
CT SCAN OF THE ABDOMEN AND PELVIS WITHOUT IV CONTRAST; CT SCAN OF THE RIGHT HIP WITHOUT IV CONTRAST CLINICAL HISTORY: Lower abdominal pain. Fall. Right hip pain. COMPARISON STUDY: Abdominal CT dated 04/21/2019. Pelvic radiograph dated 12/14/2019. TECHNIQUE: CT scan of the abdomen and pelvis is performed from the lung bases to the proximal femora. Additionally, CT scan of the right hip was performed in the bony pelvis to the femoral shaft. Images for both examination are reviewed in the axial, sagittal, and coronal planes. IV contrast was not ad ministered for this examination as per the referring clinician. Note that the examinations were perfo rmed in suboptimal fashion without IV contrast. A dose lowering technique was utilized adhering to th e principles of ALARA. The examinations are degraded by motion artifact. Interpretation of the hip CT is suboptimal without radiographic correlate. FINDINGS: Lung bases: The heart is normal in size and without pericardial effusion. There is mild patchy airspa ce consolidation at the right lung base. No pleural effusion is seen. Liver: The unenhanced liver is normal in size, contour, and attenuation. There is no intrahepatic deepa iary ductal dilatation. Gallbladder: Surgically absent noting clips in the gallbladder fossa. Spleen: Normal in size and attenuation. Pancreas: The unenhanced pancreas is moderately atrophic and grossly unremarkable. Adrenal glands: There is a 1.5 cm right adrenal adenoma. The left adrenal gland is normal in appearan ce. Kidneys: The unenhanced kidneys there is cortical atrophy and are without hydronephrosis. There are l east 2 nonobstructing left renal calculi measuring up to 4 mm. No right renal calculi are seen and th ere is no ureteral stone. There is no evidence of contour deforming renal mass lesion. Renal sinus cy sts are noted on the left. Abdominal vasculature: The abdominal aorta is normal in course and caliber noting moderate atheroscle rotic calcification. Bowel: There is moderate colonic fecal retention. No bowel obstruction is seen. Duodenal diverticula are noted. The appendix is well-visualized and normal. Peritoneum: There is no intraperitoneal free air or abdominal ascites. There is a fat-containing umbi lical hernia. Lymphadenopathy: None. Pelvic viscera: The bladder, uterus, and adnexa are normal as visualized. Skeletal structures: The skeletal structures are osteopenic. There is mild/moderate lumbosacral spond ylosis. No lytic or blastic lesions are seen. RIGHT HIP: There is no evidence of right hip fracture. There is no avascular necrosis the right femor al head. Mild degenerative changes in the right hip. There is no large joint effusion. The overlying soft tissues are within normal limits. IMPRESSION: 1. Suboptimal examinations without IV contrast. There is also motion artifact. 2. There is no evidence of solid renal injury in the abdomen or pelvis on this unenhanced examination . 3. Mild patchy airspace consolidation is seen at the right lung base. Correlate clinically with evide nce of pneumonia/aspiration pneumonitis. Chest CT follow-up in 3 months time is recommended to docume nt resolution. 4. No acute bony abnormality is seen in the right hip. 5. Left-sided nephrolithiasis. 6. Additional findings as above. ACT 112: Negative or not required by law. Electronically signed by: Bal Bishop M.D. 01/28/2022 7:33 AM
[2022-01-28] MEDS: CARBIDOPA/LEVODOPA 25/100MG TAB PO SCH ×4 (07:39→20:10)
[2022-01-28] MEDS: ASPIRIN 81 MG ECTAB PO SCH (07:40)
[2022-01-28] MEDS: DULoxetine HCL 30 MG CAP PO SCH ×2 (07:41→20:10)
[2022-01-28] MEDS: LOSARTAN POTASSIUM 25 MG TAB PO SCH ×3 (07:41→20:09)
[2022-01-28] MEDS: CYANOCOBALAMIN (B-12) 2,500 MCG TABLET SL SCH (07:41)
[2022-01-28] MEDS: MIRABEGRON ER 25 MG TAB PO SCH (07:41)
[2022-01-28] MEDS: FLUTICASONE/VILANTEROL 200/25MCG 14 PUFFS/INHALER INH SCH (07:42)
[2022-01-28] MEDS: UMECLIDINIUM BROMIDE 62.5MCG/BLISTER 7 PUFFS/INHALER INH SCH (07:43)
[2022-01-28 07:58] LABS: Calcium 8.5 mg/dl (8.5-10.1); Creatinine Clr Calc Pharmacy 51.7 ml/min; Est GFR (African American) 69.1 ml/min; Est GFR (Non-African American) 59.6 ml/min; Magnesium 1.9 mg/dl (1.7-2.4); Potassium 4.5 mmol/L (3.5-5.1)
--- NOTE | 2022-01-28 08:04 | XRay Report ---
SINGLE VIEW CHEST CLINICAL HISTORY: Fall. Generalized weakness. FINDINGS: An AP, portable, upright chest radiograph is compared to study dated 11/23/2021. Correlation is made to abdominal CT performed the same day 01/27/2022. The cardiomediastinal silhouette is unrema rkable noting atherosclerotic calcification of the thoracic aorta. Chronic interstitial thickening is similar to previous. There is minimal patchy consolidation at the right lung base. Atelectasis is se en at the left lung base. No large pleural effusion or pneumothorax is identified. The skeletal struc tures are osteopenic. The bony thorax is grossly intact. Calcific tendinopathy is noted in the right shoulder. IMPRESSION: There is minimal airspace consolidation at the right lung base, typical for a mild infect ious/inflammatory pneumonitis. A follow-up chest CT in 3 months time is recommended to document resol ution. ACT 112: Negative or not required by law. Electronically signed by: Bal Bishop M.D. 01/28/2022 8:02 AM
[2022-01-28] MEDS: ALBUTEROL HFA 8 GM INHALER INH SCH ×2 (08:06→20:51)
[2022-01-28] MEDS ORDERED: CARBIDOPA/LEVODOPA 25/100MG TAB PO SCH (09:00)
--- NOTE | 2022-01-28 09:18 | Electrocardiogram Report ---
Test Reason : Blood Pressure : / mmHG Vent. Rate : 066 BPM Atrial Rate : 066 BPM P-R Int : 160 ms QRS Dur : 092 ms QT Int : 382 ms P-R-T Axes : 055 054 060 degrees QTc Int : 400 ms Normal sinus rhythm Normal ECG When compared with ECG of 23-NOV-2021 07:21, Nonspecific T wave abnormality no longer evident in Inferior leads Nonspecific T wave abnormality, improved in Anterolateral leads Confirmed by Ryan Lindsey ([id number]) on 01/28/2022 9:18:15 AM Referred By: REFERRED SELF Confirmed By:Vishnu Lindsey
[2022-01-28] MEDS: hydroCHLOROthiazide 25 MG TAB PO SCH (09:25)
[2022-01-28] MEDS: INSULIN ASPART PER UNIT SC SCH ×4 (09:26→21:21)
[2022-01-28] MEDS: BISOPROLOL FUMARATE 5 MG TAB PO SCH (09:26)
[2022-01-28] MEDS: SULFAMETHOXAZOLE/TRIMETHOPRIM DS 800/160MG TAB PO SCH ×2 (09:26→18:28)
[2022-01-28] MEDS ORDERED: NON-FORMULARY MEDICATION (Coenzyme Q10 [Co Q-10] 100 mg Capsule) PO SCH (11:30)
[2022-01-28] MEDS: REMOVE RIVASTIGMINE PATCH SCH (15:53)
[2022-01-28] MEDS: RIVASTIGMINE 9.5 MG/24 HR TD SCH (15:54)
--- NOTE | 2022-01-28 15:54 | Hospitalist Progress Note ---
Date of Service January 28, 2022 Assessment & Plan (1) Fall: Plan: History of frequent falls with Parkinson disease and was admitted with another episode No significant injury We will get PT and OT evaluation and likely to need placement and or acute rehab (2) Parkinson's disease: Plan: History of Parkinson's disease and now has stiffness involving the lower extremities Likely worsened by recent UTI We will continue current medicines for Parkinson disease and continue with PT and OT (3) Generalized weakness: Plan: Secondary to above (4) UTI (urinary tract infection): Plan: Diagnosed with pansensitive E. coli UTI Has been on Bactrim and will finish the course Denies any urinary symptoms (5) Diabetes mellitus, type II: Plan: We will continue with SSI (6) Hypertension: Plan: Blood pressure remains on the upper side We will continue with current medications (7) Hyperlipidemia: Plan: Continue statin (8) History of TIA (transient ischemic attack): Plan: History of TIA and CAD status post stent placement Will continue current medications No significant symptom DVT prophylaxis Subcu heparin CODE STATUS Full Admission and Anticipated Discharge Date Admission Date: January 27, 2022 Subjective 01/28/2022 The patient was seen and examined in medical floor in front of the family members She complains to have weakness and also chronic back pain He does have stiffness involving the lower extremities mainly Denies any other significant symptoms Review of Systems Review of Systems: All systems reviewed and are unremarkable except as noted below Musculoskeletal: Stiffness of the lower extremities Physical Exam Physical Exam: Lying in bed comfortable Constitutional: well developed, well nourished, + ill appearing and + obese Eyes: PERRL, conjunctivae normal, anicteric sclerae ENMT: external ear and nose normal, oropharynx normal Neck: trachea midline, no thyromegaly Respiratory: no respiratory distress Auscultation: + diminished lung sounds and + crackles (Minimal crackles bilaterally) Cardiovascular: Rate/Rhythm: regular rate and regular rhythm; not tachycardic Heart Sounds: normal S1 and normal S2; no murmur Extremities: + edema (Trace edema bilateral) Gastrointestinal (Abdomen): Inspection/Auscultation: normal bowel sounds; abdomen not distended Percussion/Palpation: abdomen soft; abdomen nontender Musculoskeletal: No acute arthritis involving any joint. Has significant stiffness involving the lower extremities Neurologic: Alert, awake and oriented. Minimal tremors involving the upper extremities Lymphatic: no cervical or axillary lymphadenopathy Results & Data Results & Data ([facility]) Vital Signs (Past 12 Hours) Vital Signs Temp Pulse Resp BP Pulse Ox O2 Del Method 01/28/22 08:07 16 Room Air 01/28/22 07:49 36.5 C 64 14 178/75 H 97 Room Air Laboratory Results Short CBC 01/27/22 01/28/22 Range/Units 20:13 06:44 WBC 7.21 6.68 (4.8-10.8) K/ul Hgb 11.9 L 11.3 L (12.0-16.0) g/dl Hct 36.0 35.2 (34.1-44.9) % Plt Count 265 244 (130-400) K/uL BMP 01/27/22 01/28/22 20:13 06:44 Sodium 138 139 Potassium 4.5 4.5 Chloride 105 107 Carbon Dioxide 25 28 BUN 22 20 Creatinine 1.04 0.91 Glucose 198 H 102 H Calcium 9.2 8.5 Liver Function 01/27/22 Range/Units 20:13 Total Bilirubin 0.5 (0.2-1.0) mg/dl AST 10 L (13-39) U/L ALT 3 L (7-52) U/L Alkaline Phosphatase 70 (34-104) U/L Albumin 3.8 (3.4-5.0) gm/dl Urine 01/27/22 Range/Units 20:13 Urine Color Yellow Urine Appearance Clear (Clear) Urine pH 6.0 (4.5-7.5) Ur Specific [place] 1.024 (1.000-1.030) Urine Protein Negative (Negative) Urine Glucose (UA) Negative (Negative) Medications Administered Current Inpatient Medications Acetaminophen (Acetaminophen 325 Mg Tab) 650 mg PO Q4H PRN PRN Reason: pain/fever Stop: 02/27/22 00:28 Al Hydrox/Mg Hydrox/Simethicone (Aluminum/Magnesium Susp 30 Ml Udc) 15 ml PO DAILY PRN PRN Reason: Acid Reflux Stop: 02/27/22 00:53 Albuterol (Albuterol Hfa 8 Gm Inhaler) 2 puffs INH BIDR [facility] Stop: 02/27/22 06:59 Last Admin: 01/28/22 08:06 Dose: Not Given Aspirin (Aspirin 81 Mg Ectab) 81 mg PO QAM [facility] Stop: 02/27/22 08:59 Last Admin: 01/28/22 07:40 Dose: 81 mg Bisoprolol Fumarate (Bisoprolol Fumarate 5 Mg Tab) 5 mg PO DAILY [facility] Stop: 02/27/22 08:59 Last Admin: 01/28/22 09:26 Dose: 5 mg Carbidopa/Levodopa (Carbidopa/Levodopa 25/100mg Tab) 1.5 tab PO TID@1200,1600,2000 [facility] Stop: 02/27/22 11:59 Last Admin: 01/28/22 13:25 Dose: 1.5 tab Carbidopa/Levodopa (Carbidopa/Levodopa 25/100mg Tab) 2 tab PO DAILY@0800 [facility] Stop: 02/27/22 07:59 Last Admin: 01/28/22 07:39 Dose: 2 tab Cyanocobalamin (Cyanocobalamin (B-12) 2,500 Mcg Tablet) 2,500 mcg SL DAILY [facility] Stop: 02/27/22 08:59 Last Admin: 01/28/22 07:41 Dose: 2,500 mcg Docusate Sodium (Docusate Sodium 100 Mg Cap) 100 mg PO DAILY PRN PRN Reason: Constipation Stop: 02/27/22 00:54 Duloxetine HCl (Duloxetine Hcl 30 Mg Cap) 30 mg PO BID [facility] Stop: 02/27/22 08:59 Last Admin: 01/28/22 07:41 Dose: 30 mg Fluticasone/Vilanterol (Fluticasone/Vilanterol 200/25mcg 14 Puffs/Inhaler) 1 puffs INH DAILY [facility] Stop: 02/27/22 08:59 Last Admin: 01/28/22 07:42 Dose: 1 puffs Heparin Sodium (Porcine) (Heparin Sod 5,000 Unit/0.5 Ml Vial) 5,000 units SQ Q8 [facility] Stop: 02/27/22 05:59 Last Admin: 01/28/22 13:23 Dose: 5,000 units Hydrochlorothiazide (Hydrochlorothiazide 25 Mg Tab) 6.25 mg PO DAILY [facility] Stop: 02/27/22 08:59 Last Admin: 01/28/22 09:25 Dose: 6.25 mg Insulin Aspart (Insulin Aspart Per Unit) 0 units SC ACHS [facility] Stop: 02/27/22 07:29 Last Admin: 01/28/22 13:23 Dose: Not Given Losartan Potassium (Losartan Potassium 25 Mg Tab) 25 mg PO TID [facility] Stop: 02/27/22 08:59 Last Admin: 01/28/22 13:26 Dose: 25 mg Mirabegron (Mirabegron Er 25 Mg Tab) 50 mg PO DAILY [facility] Stop: 02/27/22 08:59 Last Admin: 01/28/22 07:41 Dose: 50 mg Miscellaneous (Peroxyl Oral Cleanser: Order Awaiting Action) 1 each N/A QS [facility] Stop: 02/27/22 07:59 Last Admin: 01/28/22 07:40 Dose: Not Given Miscellaneous (Remove Rivastigmine Patch) 1 each N/A DAILY@0759 [facility] Stop: 02/27/22 13:58 Nitroglycerin (Nitroglycerin Sl 0.4 Mg/Tab Tab) 0.4 mg SL UD PRN PRN Reason: CHEST PAIN Stop: 02/27/22 00:59 Polyethylene Glycol (Polyethylene (Miralax) 17 Gm Pack) 17 gm PO DAILY PRN PRN Reason: Constipation Stop: 02/27/22 00:28 Rivastigmine (Rivastigmine 9.5mg/24 Hr Patch) 1 patch TD DAILY [facility] Stop: 02/27/22 13:59 Rosuvastatin Calcium (Rosuvastatin Calcium 5 Mg Tab) 5 mg PO QPM [facility] Stop: 02/27/22 20:59 Trimethoprim/Sulfamethoxazole (Sulfamethoxazole/Trimethoprim Ds 800/160mg Tab) 1 tab PO BIDM [facility] Stop: 02/07/22 07:59 Last Admin: 01/28/22 09:26 Dose: 1 tab Umeclidinium [place] (Umeclidinium [place] 62.5mcg/Blister 7 Puffs/Inhaler) 1 puffs INH QAM [facility] Stop: 02/27/22 08:59 Last Admin: 01/28/22 07:43 Dose: 1 puffs
[2022-01-28] MEDS ORDERED: LORazepam 0.5 MG TAB PO PRN (19:49)
[2022-01-28] MEDS: ACETAMINOPHEN 325 MG TAB PO PRN (20:10)
[2022-01-28] MEDS ORDERED: ROSUVASTATIN CALCIUM 5 MG TAB PO SCH (21:00)
[2022-01-29] MEDS: HEPARIN SOD 5,000 UNIT/0.5 ML VIAL SQ SCH (05:43)
[2022-01-29 07:11] LABS: Basophils # (auto) 0.01 K/uL (0-0.2); Basophils % (auto) 0.2 %; Eosinophils # (auto) 0.13 K/uL (0-0.50); Eosinophils % (auto) 2.2 %; Hematocrit (blood only) 35.7 % (34.1-44.9); Hemoglobin 11.6 g/dl (12.0-16.0); Immature Granulocytes # (auto) 0.01 K/uL (0.00-0.02); Immature Granulocytes % (auto) 0.2 %; Lymphocytes # (auto) 1.09 K/uL (1.2-3.4); Lymphocytes % (auto) 18.3 %; Mean Corpuscular Hemoglobin 29.6 pg (25.0-34.0); Mean Corpuscular Hgb Conc 32.5 g/dL (32.0-36.0); Mean Corpuscular Volume 91.1 fL (80.0-100.0); Mean Platelet Volume 9.7 fL (9.4-12.3); Monocytes # (auto) 0.59 K/uL (0.24-0.82); Monocytes % (auto) 9.9 %; Neutrophils # (auto) 4.12 K/uL (1.4-6.5); Neutrophils % (auto) 69.2 %; Platelet Count 252 K/uL (130-400); RDW Coefficient of Variation 14.4 % (11.5-14.5); RDW Standard Deviation 48.5 fL (36.4-46.3); Red Blood Count 3.92 M/uL (3.93-5.22); White Blood Count 5.95 K/ul (4.8-10.8)
[2022-01-29] MEDS: ALBUTEROL HFA 8 GM INHALER INH SCH (07:20)
[2022-01-29 07:32] LABS: BUN Creatinine Ratio 15.9 (10-20); Calcium 8.6 mg/dl (8.5-10.1); Creatinine Clr Calc Pharmacy 53.4 ml/min; Est GFR (African American) 71.9 ml/min; Est GFR (Non-African American) 62.1 ml/min; Potassium 4.3 mmol/L (3.5-5.1)
[2022-01-29] MEDS: ACETAMINOPHEN 325 MG TAB PO PRN (08:00)
[2022-01-29] MEDS: BISOPROLOL FUMARATE 5 MG TAB PO SCH (08:01)
[2022-01-29] MEDS: MIRABEGRON ER 25 MG TAB PO SCH (08:02)
[2022-01-29] MEDS: ASPIRIN 81 MG ECTAB PO SCH (08:02)
[2022-01-29] MEDS: CYANOCOBALAMIN (B-12) 2,500 MCG TABLET SL SCH (08:02)
[2022-01-29] MEDS: hydroCHLOROthiazide 25 MG TAB PO SCH (08:03)
[2022-01-29] MEDS: DULoxetine HCL 30 MG CAP PO SCH (08:03)
[2022-01-29] MEDS: LOSARTAN POTASSIUM 25 MG TAB PO SCH (08:04)
[2022-01-29] MEDS: CARBIDOPA/LEVODOPA 25/100MG TAB PO SCH ×2 (08:05→11:48)
[2022-01-29] MEDS: INSULIN ASPART PER UNIT SC SCH ×2 (08:51→12:43)
[2022-01-29] MEDS: RIVASTIGMINE 9.5 MG/24 HR TD SCH (09:10)
[2022-01-29] MEDS: REMOVE RIVASTIGMINE PATCH SCH (09:10)
[2022-01-29] MEDS: UMECLIDINIUM BROMIDE 62.5MCG/BLISTER 7 PUFFS/INHALER INH SCH (09:12)
[2022-01-29] MEDS: FLUTICASONE/VILANTEROL 200/25MCG 14 PUFFS/INHALER INH SCH (09:13)
[2022-01-29] MEDS: SULFAMETHOXAZOLE/TRIMETHOPRIM DS 800/160MG TAB PO SCH (11:48)
[2022-01-29] MEDS ORDERED: ARTIFICIAL TEARS OP PRN (12:04)
--- NOTE | 2022-01-29 12:09 | Hospitalist Progress Note ---
Date of Service January 29, 2022 Assessment & Plan (1) Fall: Plan: History of frequent falls with Parkinson disease and was admitted with another episode No significant injury We will get PT and OT evaluation and likely to need placement and or acute rehab She is being accepted to [facility] and will be transferred this afternoon Irritation and pain in the left eye No obvious redness of the sclera We will try artificial tears (2) Parkinson's disease: Plan: History of Parkinson's disease and now has stiffness involving the lower extremities Likely worsened by recent UTI We will continue current medicines for Parkinson disease and continue with PT and OT Stiffness involving the legs has been better We will continue PT and OT as planned (3) Generalized weakness: Plan: Secondary to above (4) UTI (urinary tract infection): Plan: Diagnosed with pansensitive E. coli UTI Has been on Bactrim and will finish the course Denies any urinary symptoms Will finish the course of antibiotic (5) Diabetes mellitus, type II: Plan: We will continue with SSI (6) Hypertension: Plan: Blood pressure remains on the upper side We will continue with current medications (7) Hyperlipidemia: Plan: Continue statin (8) History of TIA (transient ischemic attack): Plan: History of TIA and CAD status post stent placement Will continue current medications No significant symptom DVT prophylaxis Subcu heparin CODE STATUS Full Plan Will be discharged to [facility] this afternoon Admission and Anticipated Discharge Date Admission Date: January 27, 2022 Subjective 01/28/2022 The patient was seen and examined in medical floor in front of the family members She complains to have weakness and also chronic back pain He does have stiffness involving the lower extremities mainly Denies any other significant symptoms 01/29/2022 Patient was seen and examined in medical floor in front of the family members She complains to have some irritation involving the left eye without any redness and/or blurry vision Chronic pain without any exacerbation Leg stiffness has been improving Review of Systems Review of Systems: All systems reviewed and are unremarkable except as noted below Musculoskeletal: Stiffness of the lower extremities Physical Exam Physical Exam: Lying in bed comfortable Constitutional: well developed, well nourished, + ill appearing and + obese Eyes: PERRL, conjunctivae normal, anicteric sclerae (No redness involving the eyes) ENMT: external ear and nose normal, oropharynx normal Neck: trachea midline, no thyromegaly Respiratory: no respiratory distress Auscultation: + diminished lung sounds and + crackles (Minimal crackles bilaterally) Cardiovascular: Rate/Rhythm: regular rate and regular rhythm; not tachycardic Heart Sounds: normal S1 and normal S2; no murmur Extremities: + edema (Trace edema bilateral) Gastrointestinal (Abdomen): Inspection/Auscultation: normal bowel sounds; abdomen not distended Percussion/Palpation: abdomen soft; abdomen nontender Musculoskeletal: .No acute arthritis in any joint Neurologic: normal touch/pain/proprioception and moves all extremities; no focal motor deficits Spasms involving the legs are better Lymphatic: no cervical or axillary lymphadenopathy Results & Data Results & Data ([facility]) Vital Signs (Past 12 Hours) Vital Signs Temp Pulse Resp BP Pulse Ox O2 Del Method 01/29/22 09:47 66 18 118/60 92 Room Air 01/29/22 07:57 36.8 C 69 18 176/100 H 95 Room Air 01/29/22 07:21 94 H 20 93 Room Air Laboratory Results Short CBC 01/29/22 Range/Units 06:25 WBC 5.95 (4.8-10.8) K/ul Hgb 11.6 L (12.0-16.0) g/dl Hct 35.7 (34.1-44.9) % Plt Count 252 (130-400) K/uL BMP 01/29/22 06:25 Sodium 139 Potassium 4.3 Chloride 107 Carbon Dioxide 26 BUN 14 Creatinine 0.88 Glucose 139 H Calcium 8.6 Medications Administered Current Inpatient Medications Acetaminophen (Acetaminophen 325 Mg Tab) 650 mg PO Q4H PRN PRN Reason: pain/fever Stop: 02/27/22 00:28 Last Admin: 01/29/22 08:00 Dose: 650 mg Al Hydrox/Mg Hydrox/Simethicone (Aluminum/Magnesium Susp 30 Ml Udc) 15 ml PO DAILY PRN PRN Reason: Acid Reflux Stop: 02/27/22 00:53 Albuterol (Albuterol Hfa 8 Gm Inhaler) 2 puffs INH BIDR [facility] Stop: 02/27/22 06:59 Last Admin: 01/29/22 07:20 Dose: 2 puffs Artificial Tears (Artificial Tears) 2 drops OP BID PRN PRN Reason: Dryness Stop: 02/28/22 12:03 Aspirin (Aspirin 81 Mg Ectab) 81 mg PO QAM [facility] Stop: 02/27/22 08:59 Last Admin: 01/29/22 08:02 Dose: 81 mg Bisoprolol Fumarate (Bisoprolol Fumarate 5 Mg Tab) 5 mg PO DAILY [facility] Stop: 02/27/22 08:59 Last Admin: 01/29/22 08:01 Dose: 5 mg Carbidopa/Levodopa (Carbidopa/Levodopa 25/100mg Tab) 1.5 tab PO TID@1200,1600,2000 [facility] Stop: 02/27/22 11:59 Last Admin: 01/29/22 11:48 Dose: 1.5 tab Carbidopa/Levodopa (Carbidopa/Levodopa 25/100mg Tab) 2 tab PO DAILY@0800 [facility] Stop: 02/27/22 07:59 Last Admin: 01/29/22 08:05 Dose: 2 tab Cyanocobalamin (Cyanocobalamin (B-12) 2,500 Mcg Tablet) 2,500 mcg SL DAILY [facility] Stop: 02/27/22 08:59 Last Admin: 01/29/22 08:02 Dose: 2,500 mcg Docusate Sodium (Docusate Sodium 100 Mg Cap) 100 mg PO DAILY PRN PRN Reason: Constipation Stop: 02/27/22 00:54 Duloxetine HCl (Duloxetine Hcl 30 Mg Cap) 30 mg PO BID [facility] Stop: 02/27/22 08:59 Last Admin: 01/29/22 08:03 Dose: 30 mg Fluticasone/Vilanterol (Fluticasone/Vilanterol 200/25mcg 14 Puffs/Inhaler) 1 puffs INH DAILY [facility] Stop: 02/27/22 08:59 Last Admin: 01/29/22 09:13 Dose: 1 puffs Heparin Sodium (Porcine) (Heparin Sod 5,000 Unit/0.5 Ml Vial) 5,000 units SQ Q8 [facility] Stop: 02/27/22 05:59 Last Admin: 01/29/22 05:43 Dose: 5,000 units Hydrochlorothiazide (Hydrochlorothiazide 25 Mg Tab) 6.25 mg PO DAILY [facility] Stop: 02/27/22 08:59 Last Admin: 01/29/22 08:03 Dose: 6.25 mg Insulin Aspart (Insulin Aspart Per Unit) 0 units SC ACHS [facility] Stop: 02/27/22 07:29 Last Admin: 01/29/22 08:51 Dose: Not Given Lorazepam (Lorazepam 0.5 Mg Tab) 0.5 mg PO BID PRN PRN Reason: Anxiety Stop: 02/27/22 19:48 Last Admin: 01/28/22 20:10 Dose: 0.5 mg Losartan Potassium (Losartan Potassium 25 Mg Tab) 25 mg PO TID [facility] Stop: 02/27/22 08:59 Last Admin: 01/29/22 08:04 Dose: 25 mg Mirabegron (Mirabegron Er 25 Mg Tab) 50 mg PO DAILY [facility] Stop: 02/27/22 08:59 Last Admin: 01/29/22 08:02 Dose: 50 mg Miscellaneous (Peroxyl Oral Cleanser: Order Awaiting Action) 1 each N/A QS [facility] Stop: 02/27/22 07:59 Last Admin: 01/29/22 09:12 Dose: Not Given Miscellaneous (Remove Rivastigmine Patch) 1 each N/A DAILY@0759 [facility] Stop: 02/27/22 13:58 Last Admin: 01/29/22 09:10 Dose: 1 each Nitroglycerin (Nitroglycerin Sl 0.4 Mg/Tab Tab) 0.4 mg SL UD PRN PRN Reason: CHEST PAIN Stop: 02/27/22 00:59 Polyethylene Glycol (Polyethylene (Miralax) 17 Gm Pack) 17 gm PO DAILY PRN PRN Reason: Constipation Stop: 02/27/22 00:28 Rivastigmine (Rivastigmine 9.5mg/24 Hr Patch) 1 patch TD DAILY [facility] Stop: 02/27/22 13:59 Last Admin: 01/29/22 09:10 Dose: 1 patch Rosuvastatin Calcium (Rosuvastatin Calcium 5 Mg Tab) 5 mg PO QPM [facility] Stop: 02/27/22 20:59 Last Admin: 01/28/22 20:09 Dose: 5 mg Trimethoprim/Sulfamethoxazole (Sulfamethoxazole/Trimethoprim Ds 800/160mg Tab) 1 tab PO BIDM [facility] Stop: 02/07/22 07:59 Last Admin: 01/29/22 11:48 Dose: 1 tab Umeclidinium [place] (Umeclidinium [place] 62.5mcg/Blister 7 Puffs/Inhaler) 1 puffs INH QAM [facility] Stop: 02/27/22 08:59 Last Admin: 01/29/22 09:12 Dose: 1 puffs
--- NOTE | 2022-01-30 08:01 | Discharge Summary ---
Date of Service January 29, 2022 Admission HPI Per Admitting Provider DICTATED BY:Karl Mackey MD DATE OF ADMISSION: 01/27/2022. CHIEF COMPLAINT: Falls and weakness. HISTORY OF PRESENT ILLNESS: This is an 81-year-old female with past medical history significant for Parkinson's disease, type 2 diabetes, history of TIA, hypertension, CAD, dementia, asthma, COPD, anxiety, who was brought in because of frequent falls. The patient lives in [place], currently visiting her sisters who live locally. The patient was in the hospital in the end of October and November for [employer]. She did okay at that time. The patient was trying to go to sister's house today and she fell backwards, hit her head in the car in the garage, that is the reason she was brought in here. She was in the ER a few days back also with a complaint of fall. Because of Parkinson's disease, she is having rigidity in the lower extremities and having ambulatory dysfunction . When outside she uses walker, but at home, she does not use a walker. Currently, resting comfortably, hemodynamically stable. Her imaging studies are okay in the ER, but she was having difficulty ambulating in the ER, that is the reason she was getting admitted for possible PT, OT and placement. As per the sister, the patient, because of Parkinson's, she has on and off days. On off days, she seems confused. Today is on day. The patient is somewhat slow to answer questions, but is alert and oriented. Currently has some headache and some neck pain, no blurred visions, no runny nose, no sore throat, occasional cough, no difficulty swallowing. Appetite is okay. Denies any chest pain, no shortness of breath. Has some mild abdominal discomfort, has chronic back pain. Somewhat constipated. Normal bladder movements. Hemodynamically stable. Admission Exam Per Admitting Provider GENERAL: The patient is old and frail, not in acute distress. VITAL SIGNS: Temperature 36.6, pulse 63, respiratory rate 20, blood pressure 1 67/77, oxygen 95% on room air. HEENT: Pupils equal, round and reactive to light. Oral mucosa moist. NECK: No JVD, no neck masses. CARDIOVASCULAR: S1 and S2 heard. Regular rate and rhythm. No murmur, no gallop. RESPIRATORY SYSTEM: Normal AP diameter. No accessory muscle use. No wheezing, no crackles. ABDOMEN: Soft, bowel sounds present. Mild abdominal discomfort. No guarding. No rigidity, no distention. CENTRAL NERVOUS SYSTEM: Alert and oriented x3. Speech is okay. No facial droop. Obeys simple commands. Moves extremities. EXTREMITIES: No edema, no erythema seen. Principal Diagnosis Frequent falls, ambulatory dysfunction with Parkinson's disease, recent UTI, type 2 diabetes, hypertension Discharge Exam Lying in bed comfortable Constitutional well developed, well nourished, + ill appearing and + obese Eyes PERRL, conjunctivae normal, anicteric sclerae (No redness involving the eyes) ENMT external ear and nose normal, oropharynx normal Neck trachea midline, no thyromegaly Respiratory no respiratory distress Auscultation: + diminished lung sounds and + crackles (Minimal crackles bilaterally) Cardiovascular Rate/Rhythm: regular rate and regular rhythm; not tachycardic Heart Sounds: normal S1 and normal S2; no murmur Extremities: + edema (Trace edema bilateral) Gastrointestinal (Abdomen) Inspection/Auscultation: normal bowel sounds; abdomen not distended Percussion/Palpation: abdomen soft; abdomen nontender Neurologic normal touch/pain/proprioception and moves all extremities; no focal motor deficits Lymphatic no cervical or axillary lymphadenopathy Discharge Data Allergies Allergy/AdvReac Type Severity Reaction Status Date / Time fluconazole Allergy Severe hives,rash,respiratory Unverified 01/27/22 23:58 difficulty hydrochlorothiazide Allergy Severe Rash Unverified 01/27/22 23:58 triamterene Allergy Severe Rash Unverified 01/27/22 23:58 erythromycin base Allergy Intermediate n/a, rash Unverified 01/27/22 23:58 isosorbide Allergy Intermediate head Unverified 01/27/22 23:58 NSAIDS (Non-Steroidal Allergy Intermediate hives,rash Unverified 01/27/22 23:58 Anti-Inflamma amifostine Allergy Unknown Unverified 01/27/22 23:58 fluticasone Allergy Unknown Unverified 01/27/22 23:58 lisinopril Allergy Unknown Unverified 01/27/22 23:58 Penicillins Allergy Unknown Unverified 01/27/22 23:58 ethyl alcohol AdvReac Unknown Unverified 01/27/22 23:58 Consultations 01/27/22 22:18 ED Decision to Admit Stat Ordered Studies 01/27/22 19:57 CT head/brain wo con Urgent 01/27/22 20:05 CT Abd and Pelvis [CT abd pelvis wo con] Urgent CT cervical spine wo con Urgent CT hip RT wo con Urgent Hospital Course (1) Fall: History of frequent falls with Parkinson disease and was admitted with another episode No significant injury We will get PT and OT evaluation and likely to need placement and or acute rehab She is being accepted to [facility] and will be transferred this afternoon Irritation and pain in the left eye No obvious redness of the sclera We will try artificial tears (2) Parkinson's disease: History of Parkinson's disease and now has stiffness involving the lower extremities Likely worsened by recent UTI We will continue current medicines for Parkinson disease and continue with PT and OT Stiffness involving the legs has been better We will continue PT and OT as planned (3) Generalized weakness: Secondary to above (4) UTI (urinary tract infection): Diagnosed with pansensitive E. coli UTI Has been on Bactrim and will finish the course Denies any urinary symptoms Will finish the course of antibiotic (5) Diabetes mellitus, type II: We will continue with SSI (6) Hypertension: Blood pressure remains on the upper side We will continue with current medications (7) Hyperlipidemia: Continue statin (8) History of TIA (transient ischemic attack): History of TIA and CAD status post stent placement Will continue current medications No significant symptom DVT prophylaxis Subcu heparin CODE STATUS Full Plan Will be discharged to [facility] this afternoon Total Time Total Time Spent Total Time Spent (In Minutes): 35 minutes Discharge Plan Discharge Items Patient Disposition: Transfer Inpatient Rehab Fac Reason For Visit: FALL Discharge Diagnosis: Frequent falls, ambulatory dysfunction with Parkinson's disease, recent UTI, type 2 diabetes, hypertension Condition on Discharge: Good Activity: As commented below Activity Comment: Will need PT and OT Non-emergency contact: Primary Care Provider Call non-emergency contact if: you have any medication questions and your symptoms worsen Follow-up/Referrals: Acacia Rice MD [Primary Care Provider] - (Please make an appointment with your PCP within 1 week following discharge from the facility) Diet: Carb Consistent or DM2 Addtl Attending Provider Instructions: Please take precautions to avoid fall Continue PT and OT as Please finish the course of antibiotic Try to drink more fluid Pending Studies at Discharge: No Stand-Alone Forms: My [facility] Skilled Items Patient informed of condition?: Yes DNR: No Discharge Level of Care: Acute rehab Communicable Disease: No Discharge Prognosis: Stable Lines: None Urinary Catheter: No Medications and DC Order Prescriptions: New polyvinyl alcohol [Artificial Tears (polyvin alc)] 1.4 % Drops 2 drp ophthalmic (eye) BID PRN (Reason: dry eyes) Qty: 15 0RF Continued aspirin 81 mg Tablet,Delayed Release (Dr/Ec) 81 mg PO QAM albuterol sulfate 90 mcg/actuation HFA aerosol inhaler 2 puff INHALATION BID duloxetine 30 mg capsule,delayed release(DR/EC) 30 mg PO BID budesonide-formoterol [Symbicort] 160-4.5 mcg/actuation HFA aerosol inhaler 2 puff INHALATION BID Incruse Ellipta 62.5 mcg/actuation blister with device 1 inh INHALATION QAM carbidopa-levodopa 25-100 mg Tablet Extended Release 1.5 tab PO TID Rx Instructions: 2 tabs at 0800, 1.5 tab at 1200, 1.5 tab 1600, 1.5 tab 2000 metformin 1,000 mg Tablet 1,000 mg PO BID docusate sodium 100 mg Tablet 100 mg PO DAILY PRN (Reason: Constipation) coenzyme Q10 [Co Q-10] 100 mg Capsule 100 mg PO QDL rosuvastatin 5 mg Tablet 5 mg PO QPM acetaminophen [Tylenol Extra Strength] 500 mg Tablet 1,000 mg PO BID PRN (Reason: Pain) glimepiride 1 mg tablet 1 mg PO BID Januvia 100 mg tablet 100 mg PO DAILY losartan 25 mg tablet 25 mg PO TID cyanocobalamin (vitamin B-12) [Vitamin B-12] 2,500 mcg Tablet, Sublingual 2,500 mcg SUBLINGUAL DAILY carbidopa-levodopa 25-100 mg tablet 2 tab PO QAM Peroxyl 1.5 % Solution 0 ml mucous membrane .4-5XSDAY Gaviscon 80-14.2 mg Tablet,Chewable 1 tab PO DIRECTED PRN (Reason: Acid Reflux) bisoprolol-hydrochlorothiazide [Ziac] 5-6.25 mg tablet 1 tab PO DAILY nitroglycerin 0.4 mg Tablet, Sublingual 0.4 mg sublingual UD rivastigmine 9.5 mg/24 hour patch 24 hour 1 patch transdermal UD Myrbetriq 50 mg Tablet Extended Release 24 Hr 50 mg PO DAILY Discontinued sulfamethoxazole-trimethoprim 800-160 mg tablet 1 tab PO BID Discharge Orders: Discharge Order (Routine); Ordered 01/29/22 Ordered By: Oriana Agee/Other Patient Handouts: UTIs Understanding Admission Data Admit Date/Time: 01/27/22 23:29 Attending Provider: Oriana Clark Admit Provider: Karl Mackey Primary Care Provider: Acacia Rice Other Providers: Karl Mackey ; [facility] Other Interventions: Discharge Summary Assessment (RN) Last Done: 01/29/22 13:50
== END 2022-01-29 14:17 | DRG 92 ==
LOC: ED 19:33 → 3N 23:29
DX: Z88.8 Allergy status to other drugs, medicaments and biological substances; G20 Parkinson's disease; Z88.0 Allergy status to penicillin; Z86.16 Personal history of COVID-19; W01.10XA Fall on same level from slipping, tripping and stumbling with subsequent striking against unspecified object, initial encounter; R10.9 Unspecified abdominal pain; J44.9 Chronic obstructive pulmonary disease, unspecified; M25.551 Pain in right hip; S09.90XA Unspecified injury of head, initial encounter; R29.6 Repeated falls; N39.0 Urinary tract infection, site not specified; E11.9 Type 2 diabetes mellitus without complications; Z79.84 Long term (current) use of oral hypoglycemic drugs; S13.4XXA Sprain of ligaments of cervical spine, initial encounter; Y93.01 Activity, walking, marching and hiking; Y92.009 Unspecified place in unspecified non-institutional (private) residence as the place of occurrence of the external cause; E86.0 Dehydration; B96.20 Unspecified Escherichia coli [E. coli] as the cause of diseases classified elsewhere; Z95.5 Presence of coronary angioplasty implant and graft; Z86.73 Personal history of transient ischemic attack (TIA), and cerebral infarction without residual deficits; I10 Essential (primary) hypertension; E78.5 Hyperlipidemia, unspecified; I25.10 Atherosclerotic heart disease of native coronary artery without angina pectoris

== ENCOUNTER 2022-02-05 20:07 | Observation (INO) ==
[2022-02-05 21:59] LABS: Albumin Globulin Ratio 1.4 (0.9-2); Albumin Level 3.7 gm/dl (3.4-5.0); BUN Creatinine Ratio 26.2 (10-20); Bilirubin,Total 0.6 mg/dl (0.2-1.0); Calcium 9.5 mg/dl (8.5-10.1); Creatinine Clr Calc Pharmacy 36.8 ml/min; Est GFR (African American) 48.5 ml/min; Est GFR (Non-African American) 41.8 ml/min; Globulin 2.6 gm/dl (2.5-4.0); Potassium 4.7 mmol/L (3.5-5.1); Total Protein 6.3 gm/dl (6.0-8.3)
[2022-02-05 22:02] LABS: Basophils # (auto) 0.02 K/uL (0-0.2); Basophils % (auto) 0.3 %; Eosinophils % (auto) 1.4 %; Hematocrit (blood only) 36.9 % (34.1-44.9); Hemoglobin 11.8 g/dl (12.0-16.0); Immature Granulocytes # (auto) 0.01 K/uL (0.00-0.02); Immature Granulocytes % (auto) 0.1 %; Lymphocytes # (auto) 1.77 K/uL (1.2-3.4); Lymphocytes % (auto) 25.3 %; Mean Corpuscular Hemoglobin 29.5 pg (25.0-34.0); Mean Corpuscular Volume 92.3 fL (80.0-100.0); Monocytes # (auto) 0.77 K/uL (0.24-0.82); Neutrophils # (auto) 4.33 K/uL (1.4-6.5); Neutrophils % (auto) 61.9 %; Platelet Count 332 K/uL (130-400); RDW Coefficient of Variation 14.4 % (11.5-14.5); RDW Standard Deviation 48.5 fL (36.4-46.3)
[2022-02-05 22:04] LABS: Troponin I High Sensitivity 3.8 pg/ml (0-14)
[2022-02-05 23:25] LABS: Appearance Urine Clear (Clear); Bilirubin Urine Negative (Negative); Blood Urine Negative (Negative); Color Urine Dark Yellow; Glucose Urine UA Negative (Negative); Ketones Urine Trace (Negative); Leukocyte Esterase Urine Negative (Negative); Nitrite Urine Negative (Negative); Protein Urine Negative (Negative); Specific Gravity Urine 1.025 (1.000-1.030); Urobilinogen Urine Negative (Negative)
[2022-02-06] MEDS ORDERED: ceFAZolin 2000MG 2,000 MG/15 ML SYR IV STA (00:15)
--- NOTE | 2022-02-06 00:15 | Emergency Department Note ---
History of Present Illness General Chief complaint: Altered Mental Status Time Seen by Provider: 02/05/22 22:06 History of Present Illness 81-year-old female [facility] some increasing confusion tonight as well as some twitching. The patient started having the symptoms around 8:00 this morning. According to her sisters, she has not had very good p.o. intake for the past couple of days as well. She has had some incontinence. They also noticed a reddened area in the left second toe with some red streak in the left anterior leg. They state that she was grabbing at things that were not there and seem to be not acting herself. She does have some baseline mild confusion. She has Parkinson's disease as well. Home Medications Medication Instructions Recorded Confirmed Type carbidopa ER 25 mg-levodopa 100 mg 1.5 tab PO TID 04/21/19 01/27/22 History tablet,extended release coenzyme Q10 100 mg capsule (Co 100 mg PO QDL 04/21/19 01/27/22 History Q-10) docusate sodium 100 mg tablet 100 mg PO DAILY PRN Constipation 04/21/19 01/27/22 History metformin 1,000 mg tablet 1,000 mg PO BID 04/21/19 01/27/22 History rosuvastatin 5 mg tablet 5 mg PO QPM 04/21/19 01/27/22 History albuterol sulfate 90 mcg/actuation 2 puff inhalation BID 03/18/20 01/27/22 History aerosol inhaler aspirin 81 mg tablet,delayed 81 mg PO QAM 03/18/20 01/27/22 History release budesonide-formoterol HFA 160 2 puff inhalation BID 03/18/20 01/27/22 History mcg-4.5 mcg/actuation aerosol inhaler (Symbicort) duloxetine 30 mg capsule,delayed 30 mg PO BID 03/18/20 01/27/22 History release umeclidinium 62.5 mcg/actuation 1 inh inhalation QAM 03/18/20 01/27/22 History blister powder for inhalation (Incruse Ellipta) acetaminophen 500 mg tablet 1,000 mg PO BID PRN Pain 05/04/20 01/27/22 History (Tylenol Extra Strength) bisoprolol 5 1 tab PO DAILY 04/28/21 01/27/22 History mg-hydrochlorothiazide 6.25 mg tablet (Ziac) mirabegron 50 mg tablet,extended 50 mg PO DAILY 04/28/21 01/27/22 History release 24 hr (Myrbetriq) nitroglycerin 0.4 mg sublingual 0.4 mg sublingual UD 04/28/21 01/27/22 History tablet rivastigmine 9.5 mg/24 hour 1 patch transdermal UD 04/28/21 01/27/22 History transdermal patch glimepiride 1 mg tablet 1 mg PO BID 05/13/21 01/27/22 History sitagliptin 100 mg tablet (Januvia) 100 mg PO DAILY 05/13/21 01/27/22 History Al hyd-Mg tr-alg ac-sod bicarb 80 1 tab PO DIRECTED PRN Acid 01/27/22 01/27/22 History mg-14.2 mg chewable tablet Reflux (Gaviscon) carbidopa 25 mg-levodopa 100 mg 2 tab PO QAM 01/27/22 01/27/22 History tablet cyanocobalamin (vitamin B-12) 2,500 mcg sublingual DAILY 01/27/22 01/27/22 History 2,500 mcg sublingual tablet (Vitamin B-12) hydrogen peroxide 1.5 % rinse 0 ml mucous membrane .4-5XSDAY 01/27/22 01/27/22 History (Peroxyl) losartan 25 mg tablet 25 mg PO TID 01/27/22 01/27/22 History polyvinyl alcohol 1.4 % eye drops 2 drp ophthalmic (eye) BID PRN dry 01/29/22 Rx (Artificial Tears (polyvinyl eyes #15 mL alcohol)) Allergies Allergy/AdvReac Type Severity Reaction Status Date / Time fluconazole Allergy Severe hives,rash,respiratory Unverified 01/27/22 23:58 difficulty hydrochlorothiazide Allergy Severe Rash Unverified 01/27/22 23:58 triamterene Allergy Severe Rash Unverified 01/27/22 23:58 erythromycin base Allergy Intermediate n/a, rash Unverified 01/27/22 23:58 isosorbide Allergy Intermediate head Unverified 01/27/22 23:58 NSAIDS (Non-Steroidal Allergy Intermediate hives,rash Unverified 01/27/22 23:58 Anti-Inflamma amifostine Allergy Unknown Unverified 01/27/22 23:58 fluticasone Allergy Unknown Unverified 01/27/22 23:58 lisinopril Allergy Unknown Unverified 01/27/22 23:58 Penicillins Allergy Unknown Unverified 01/27/22 23:58 ethyl alcohol AdvReac Unknown Unverified 01/27/22 23:58 Past Med/Surg History Medical History Anxiety Asthma CAD (coronary artery disease) COPD (chronic obstructive pulmonary disease) COVID-19 Delirium Diabetes mellitus, type II Generalized weakness GERD (gastroesophageal reflux disease) History of TIA (transient ischemic attack) Hyperlipidemia Hypertension Multiple fractures of ribs of left side Parkinson's disease Transient confusion Surgical History Hx of appendectomy S/P cholecystectomy Stented coronary artery Family History Other Diabetes Heart disease Hypertension Social History Smoking Status: Former smoker Tobacco Type: Cigarettes Second Hand Exposure: No; Hx Alcohol Use: No Hx Substance Use: No Preferred Language: Indonesian Communication Ability: Effective Butcher All Round Required: No Beliefs That Will Affect Care: None marital status: / Current Living Situation: Family Current Living Situation Comment: lives with sisters current occupational status: retired 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[place], [place] How many Children do You have: 0 Feels Safe at Home: Yes Assistive Devices: Cane and Walker Review of Systems A total of 10 systems reviewed and were otherwise negative Physical Exam Vital Signs Vital Signs - 24 hr 02/05/22 20:17 02/05/22 22:17 02/05/22 20:17 Temperature 36.5 C Temperature Source Oral Pulse Rate 90 67 Pulse Rate from SpO2 Sensor 68 Pulse Rhythm Regular Pulse Strength Normal Respiratory Rate 14 18 21 Respiratory Effort / Characteristics Non-Labored Non-Labored Respiratory Depth Normal Normal Respiratory Pattern Regular Blood Pressure 125/73 Blood Pressure [Left Arm] 128/74 Blood Pressure Mean 90 Blood Pressure Mean [Left Arm] 92 Blood Pressure Position Lying Pulse Oximetry 98 96 99 Oxygen Delivery Method Room Air Room Air Sepsis Recent Fever Within 48 Hours No Sepsis New/Unexplained Change in Mental Status No Sepsis Action Taken by Nursing No Action Required 02/05/22 20:30 02/05/22 21:00 02/05/22 21:00 Temperature Temperature Source Pulse Rate 68 66 Pulse Rate from SpO2 Sensor 68 Pulse Rhythm Pulse Strength Respiratory Rate 21 26 H Respiratory Effort / Characteristics Respiratory Depth Respiratory Pattern Blood Pressure 115/92 Blood Pressure [Left Arm] Blood Pressure Mean 99 Blood Pressure Mean [Left Arm] Blood Pressure Position Pulse Oximetry 97 Oxygen Delivery Method Sepsis Recent Fever Within 48 Hours Sepsis New/Unexplained Change in Mental Status Sepsis Action Taken by Nursing 02/05/22 21:30 02/05/22 22:00 02/05/22 22:21 Temperature Temperature Source Pulse Rate 67 68 64 Pulse Rate from SpO2 Sensor Pulse Rhythm Pulse Strength Respiratory Rate 23 17 17 Respiratory Effort / Characteristics Respiratory Depth Respiratory Pattern Blood Pressure 111/63 Blood Pressure [Left Arm] Blood Pressure Mean 79 Blood Pressure Mean [Left Arm] Blood Pressure Position Pulse Oximetry 96 Oxygen Delivery Method Room Air Sepsis Recent Fever Within 48 Hours Sepsis New/Unexplained Change in Mental Status Sepsis Action Taken by Nursing 02/05/22 23:01 Temperature Temperature Source Pulse Rate 63 Pulse Rate from SpO2 Sensor Pulse Rhythm Pulse Strength Respiratory Rate 14 Respiratory Effort / Characteristics Respiratory Depth Respiratory Pattern Blood Pressure 133/61 Blood Pressure [Left Arm] Blood Pressure Mean 85 Blood Pressure Mean [Left Arm] Blood Pressure Position Pulse Oximetry 96 Oxygen Delivery Method Room Air Sepsis Recent Fever Within 48 Hours Sepsis New/Unexplained Change in Mental Status Sepsis Action Taken by Nursing CONSTITUTIONAL/VITAL SIGNS: Reviewed / noted above. GENERAL: Non-toxic in appearance. INTEGUMENTARY: Warm, dry, and Iron Post. HEAD: Normocephalic. EYES: without scleral icterus or trauma. ENT/OROPHARYNX: clear and moist. LYMPHADENOPATHY/NECK: Is supple without lymphadenopathy or meningismus. RESPIRATORY: Clear to auscultation bilaterally. No increased work of breathing. CARDIOVASCULAR: Regular rate and rhythm. GI/ABDOMEN: Soft and nontender. No organomegaly or pulsatile mass. EXTREMITIES: Warm and well perfused. There is a erythematous second left toe that appears to be related to her great toenail digging into the second toe. There is also some erythema and warmth in the left anterior tibial region. NEUROLOGICAL: Intact without focal deficits. The patient does answer some basic questions appropriately but at times she is picking at things and has twitches that appear to be involuntary of her arms and legs. This appears to surround the time when she seems to be falling asleep. PSYCHIATRIC: normal affect. MUSCULOSKELETAL: Normally developed with good muscle tone. Generalized weakness. TRIAGE NURSING DOCUMENTATION REVIEWED. Medical Decision Making Differential Diagnosis Lumbar spine differential includes acute coronary syndrome, myocardial infarction, CVA, TIA, anemia, infection, pneumonia, UTI, pyelonephritis, poor nutrition, dehydration, electrolyte disturbance,hypoglycemia. Medical Records Attestation: I reviewed the patient's medical records. Home Medications Current Medication List: was personally reviewed by me Laboratory Data Attestation: I reviewed the patient's lab results. Result diagrams: 02/05/22 20:20 02/05/22 20:20 Lab Results 02/05/22 02/05/22 02/05/22 Range/Units 20:20 20:20 20:20 WBC 7.00 (4.8-10.8) K/ul RBC 4.00 (3.93-5.22) M/uL Hgb 11.8 L (12.0-16.0) g/dl Hct 36.9 (34.1-44.9) % MCV 92.3 (80.0-100.0) fL MCH 29.5 (25.0-34.0) pg MCHC 32.0 (32.0-36.0) g/dL RDW Std Deviation 48.5 H (36.4-46.3) fL RDW Coeff of Jayden 14.4 (11.5-14.5) % Plt Count 332 (130-400) K/uL MPV 10.0 (9.4-12.3) fL Immature Gran % (Auto) 0.1 % Neut % (Auto) 61.9 % Lymph % (Auto) 25.3 % Mcduffie % (Auto) 11.0 % Eos % (Auto) 1.4 % Baso % (Auto) 0.3 % Neut # (Auto) 4.33 (1.4-6.5) K/uL Lymph # (Auto) 1.77 (1.2-3.4) K/uL Mcduffie # (Auto) 0.77 (0.24-0.82) K/uL Eos # (Auto) 0.10 (0-0.50) K/uL Baso # (Auto) 0.02 (0-0.2) K/uL Immature Gran # (Auto) 0.01 (0.00-0.02) K/uL Sodium 140 (136-145) mmol/L Potassium 4.7 (3.5-5.1) mmol/L Chloride 105 (98-107) mmol/L Carbon Dioxide 25 (21-32) mmol/L Anion Gap 10 (3-11) BUN 32 H (6-23) mg/dl Creatinine 1.22 H (0.6-1.2) mg/dl Est Cr Clr Drug Dosing 36.8 ml/min Est GFR ( Amer) 48.5 ml/min Est GFR (Non-Af Amer) 41.8 ml/min BUN/Creatinine Ratio 26.2 H (10-20) Glucose 88 (70-99(Fasting)) mg/dl Calcium 9.5 (8.5-10.1) mg/dl Total Bilirubin 0.6 (0.2-1.0) mg/dl AST 14 (13-39) U/L ALT 4 L (7-52) U/L Alkaline Phosphatase 58 (34-104) U/L Troponin I High Sens 3.8 (0-14) pg/ml Total Protein 6.3 (6.0-8.3) gm/dl Albumin 3.7 (3.4-5.0) gm/dl Globulin 2.6 (2.5-4.0) gm/dl Albumin/Globulin Ratio 1.4 (0.9-2) TSH 1.653 (0.300-4.500) uIu/ml Urine Color Urine Appearance (Clear) Urine pH (4.5-7.5) Ur Specific Effort (1.000-1.030) Urine Protein (Negative) Urine Glucose (UA) (Negative) Urine Ketones (Negative) Urine Blood (Negative) Urine Nitrite (Negative) Urine Bilirubin (Negative) Urine Urobilinogen (Negative) Ur Leukocyte Esterase (Negative) 02/05/22 Range/Units 22:45 WBC (4.8-10.8) K/ul RBC (3.93-5.22) M/uL Hgb (12.0-16.0) g/dl Hct (34.1-44.9) % MCV (80.0-100.0) fL MCH (25.0-34.0) pg MCHC (32.0-36.0) g/dL RDW Std Deviation (36.4-46.3) fL RDW Coeff of Jayden (11.5-14.5) % Plt Count (130-400) K/uL MPV (9.4-12.3) fL Immature Gran % (Auto) % Neut % (Auto) % Lymph % (Auto) % Mcduffie % (Auto) % Eos % (Auto) % Baso % (Auto) % Neut # (Auto) (1.4-6.5) K/uL Lymph # (Auto) (1.2-3.4) K/uL Mcduffie # (Auto) (0.24-0.82) K/uL Eos # (Auto) (0-0.50) K/uL Baso # (Auto) (0-0.2) K/uL Immature Gran # (Auto) (0.00-0.02) K/uL Sodium (136-145) mmol/L Potassium (3.5-5.1) mmol/L Chloride (98-107) mmol/L Carbon Dioxide (21-32) mmol/L Anion Gap (3-11) BUN (6-23) mg/dl Creatinine (0.6-1.2) mg/dl Est Cr Clr Drug Dosing ml/min Est GFR ( Amer) ml/min Est GFR (Non-Af Amer) ml/min BUN/Creatinine Ratio (10-20) Glucose (70-99(Fasting)) mg/dl Calcium (8.5-10.1) mg/dl Total Bilirubin (0.2-1.0) mg/dl AST (13-39) U/L ALT (7-52) U/L Alkaline Phosphatase (34-104) U/L Troponin I High Sens (0-14) pg/ml Total Protein (6.0-8.3) gm/dl Albumin (3.4-5.0) gm/dl Globulin (2.5-4.0) gm/dl Albumin/Globulin Ratio (0.9-2) TSH (0.300-4.500) uIu/ml Urine Color Dark Yellow Urine Appearance Clear (Clear) Urine pH 5.0 (4.5-7.5) Ur Specific Effort 1.025 (1.000-1.030) Urine Protein Negative (Negative) Urine Glucose (UA) Negative (Negative) Urine Ketones Trace H (Negative) Urine Blood Negative (Negative) Urine Nitrite Negative (Negative) Urine Bilirubin Negative (Negative) Urine Urobilinogen Negative (Negative) Ur Leukocyte Esterase Negative (Negative) ECG Data Attestation: I personally reviewed and interpreted this ECG as follows: MDM Narrative 81-year-old female presents with some change in her baseline behavior. She is having some twitches and some confusion more than her usual. She was sent to the ED for evaluation of this. The patient does not have any specific complaints but is noted to have some twitching especially when she seems to be falling asleep or in her early phases of sleep. She also has an erythematous left second toe that might be causing some of the patient's symptoms. She does have some red streak going up the left anterior tibial region above the toe. A CT scan of the brain did not show acute process. CBC was normal. Chemistry panel was normal. Troponin was negative. TSH was normal. BUN is 32. Urine did not show infection. She was empirically given some IV Ancef for this cellulitis of the left second toe and left anterior tibial region. She was given some IV fluids. She will be seen by the hospitalist for further evaluat ion and care. Impression & Plan Cellulitis of second toe, left, Acute confusion, Acute dehydration Discharge Plan Visit Data Chief Complaint: Altered Mental Status ED Provider: Mayito Spence Discharge Problem: Cellulitis of second toe, left, Acute confusion, Acute dehydration Patient Disposition: Being Evaluated by Hospitalist Forms Stand Alone Forms: [facility] Prescriptions Prescriptions: No Action aspirin 81 mg Tablet,Delayed Release (Dr/Ec) 81 mg PO QAM albuterol sulfate 90 mcg/actuation HFA aerosol inhaler 2 puff INHALATION BID duloxetine 30 mg capsule,delayed release(DR/EC) 30 mg PO BID budesonide-formoterol [Symbicort] 160-4.5 mcg/actuation HFA aerosol inhaler 2 puff INHALATION BID Incruse Ellipta 62.5 mcg/actuation blister with device 1 inh INHALATION QAM carbidopa-levodopa 25-100 mg Tablet Extended Release 1.5 tab PO TID Rx Instructions: 2 tabs at 0800, 1.5 tab at 1200, 1.5 tab 1600, 1.5 tab 2000 metformin 1,000 mg Tablet 1,000 mg PO BID docusate sodium 100 mg Tablet 100 mg PO DAILY PRN (Reason: Constipation) coenzyme Q10 [Co Q-10] 100 mg Capsule 100 mg PO QDL rosuvastatin 5 mg Tablet 5 mg PO QPM acetaminophen [Tylenol Extra Strength] 500 mg Tablet 1,000 mg PO BID PRN (Reason: Pain) glimepiride 1 mg tablet 1 mg PO BID Januvia 100 mg tablet 100 mg PO DAILY losartan 25 mg tablet 25 mg PO TID cyanocobalamin (vitamin B-12) [Vitamin B-12] 2,500 mcg Tablet, Sublingual 2,500 mcg SUBLINGUAL DAILY carbidopa-levodopa 25-100 mg tablet 2 tab PO QAM Peroxyl 1.5 % Solution 0 ml mucous membrane .[id number] Gaviscon 80-14.2 mg Tablet,Chewable 1 tab PO DIRECTED PRN (Reason: Acid Reflux) polyvinyl alcohol [Artificial Tears (polyvin alc)] 1.4 % Drops 2 drp ophthalmic (eye) BID PRN (Reason: dry eyes) Qty: 15 0RF bisoprolol-hydrochlorothiazide [Ziac] 5-6.25 mg tablet 1 tab PO DAILY nitroglycerin 0.4 mg Tablet, Sublingual 0.4 mg sublingual UD rivastigmine 9.5 mg/24 hour patch 24 hour 1 patch transdermal UD Myrbetriq 50 mg Tablet Extended Release 24 Hr 50 mg PO DAILY Referrals Referrals: Acacia Rice MD [Primary Care Provider] -
[2022-02-06] MEDS ORDERED: SODIUM CHLORIDE 0.9% 1000ML 500 ML IV ONE (00:18)
--- NOTE | 2022-02-06 00:29 | History & Physical Report ---
Date of Service February 06, 2022 Assessment & Plan (1) Encephalopathy: Plan: hx Parkinson's disease with cognitive impairment, Multifactorial : ? Post ictal event, possible seizures, past history CVA ? Precipitated by left toe infection (no sepsis for now) rule out abscess ARF, mild dehydration, ketonuria hx CAD status post stent asthma/COPD as per records, stable hypertension, stable hyperlipidemia on statin Rx DM2 on oral medications, well-controlled as of recent hemoglobin A1c of 7 last October 2021 chronic anemia, hemoglobin at baseline past tobacco abuse. 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 Patient sisters requesting updates for providers. Ja Itzel Oakes, contact #[phone]. Ms. Jolanta Vail, contact #[phone]. Text document was generated using [employer] voice recognition software. It may contain grammatical or spelling errors. Kindly contact undersigned for clarification of any documentation item in question. History of Present Illness Chief Complaint: Altered mental status, possible seizures as per family Primary Care Provider: Acacia Rice MD ([place] PCP) Dr. Stover ([place] PCP) History obtained from family and records. Unable to obtain history from patient secondary to obtunded state. 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 Patient is a resident of [place] who has been in town the last few months originally under the care of her sisters who live locally. Last confinement last week for recurrent falls. Patient discharged to [facility] rehab facility. Patient Carbidopa preparation change at rehab facility by provider for unclear reasons to family. Patient noted by family to have involuntary movements. Possible dyskinesias as per family. Concerns communicated to rehab facility providers 2 days ago. Patient back on previous carbidopa regimen. Yesterday, patient noted to be more confused than usual. Prolonged involuntary jerks as per family, possible seizures. Usual urinary incontinence. Patient brought to the ER for evaluation. Cefazolin given for left foot infection. 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 Allergies Allergy/AdvReac Type Severity Reaction Status Date / Time fluconazole Allergy Severe hives,rash,respiratory Unverified 02/06/22 01:38 difficulty hydrochlorothiazide Allergy Severe Rash Unverified 02/06/22 01:38 triamterene Allergy Severe Rash Unverified 02/06/22 01:38 erythromycin base Allergy Intermediate n/a, rash Unverified 02/06/22 01:38 isosorbide Allergy Intermediate head Unverified 02/06/22 01:38 NSAIDS (Non-Steroidal Allergy Intermediate hives,rash Unverified 02/06/22 01:38 Anti-Inflamma amifostine Allergy Unknown Unverified 02/06/22 01:38 fluticasone Allergy Unknown Unverified 02/06/22 01:38 lisinopril Allergy Unknown Unverified 02/06/22 01:38 Penicillins Allergy Unknown Unverified 02/06/22 01:38 ethyl alcohol AdvReac Unknown Unverified 02/06/22 01:38 Home Medications Medication Instructions Recorded Confirmed Type Ocular Lubricant 2 drp OPB BID PRN Dry Eyes 02/06/22 02/06/22 History acetaminophen 325 mg tablet 650 mg PO QID PRN Pain 02/06/22 02/06/22 History (Tylenol) albuterol sulfate 90 mcg/actuation 2 puff inhalation Q4 PRN Shortness 02/06/22 02/06/22 History aerosol inhaler Of Breath Or Wheezing atorvastatin 10 mg tablet 10 mg PO HS 02/06/22 02/06/22 History bisoprolol fumarate 5 mg tablet 5 mg PO DAILY 02/06/22 02/06/22 History carbidopa 25 mg-levodopa 100 mg 1.5 tab PO TID 02/06/22 02/06/22 History tablet carbidopa 25 mg-levodopa 100 mg 2 tab PO .QBREAKFAST 02/06/22 02/06/22 History tablet cyanocobalamin (vitamin B-12) 2,500 mcg PO DAILY 02/06/22 02/06/22 History 2,500 mcg tablet docusate sodium 100 mg capsule 100 mg PO DAILY 02/06/22 02/06/22 History duloxetine 30 mg capsule,delayed 30 mg PO Q12 02/06/22 02/06/22 History release fluticasone furoate 200 1 inh inhalation DAILY 02/06/22 02/06/22 History mcg-vilanterol 25 mcg/dose inhalation powder (Breo Ellipta) glimepiride 1 mg tablet 0.5 mg PO DAILY 02/06/22 02/06/22 History heparin (porcine) 5,000 unit/mL 5,000 unit subcut Q8H 02/06/22 02/06/22 History injection solution hydrochlorothiazide 12.5 mg tablet 6.25 mg PO DAILY 02/06/22 02/06/22 History lorazepam 0.5 mg tablet 0.5 mg PO BID PRN Anxiety 02/06/22 02/06/22 History losartan 25 mg tablet 25 mg PO Q8 02/06/22 02/06/22 History magnesium hydroxide 400 mg/5 mL 30 ml PO DAILY PRN Constipation 02/06/22 02/06/22 History oral suspension (Milk of Magnesia) metformin 1,000 mg tablet 1,000 mg PO BID 02/06/22 02/06/22 History mirabegron 25 mg tablet,extended 50 mg PO DAILY 02/06/22 02/06/22 History release 24 hr (Myrbetriq) nitroglycerin 0.4 mg sublingual 0.5 mg sublingual .Q5MIN PRN Chest 02/06/22 02/06/22 History tablet (Nitrostat) Pain ondansetron HCl 4 mg tablet 4 mg PO Q4 PRN .NAUSEA/VOMITING 02/06/22 02/06/22 History polyethylene glycol 3350 17 gram 17 g PO DAILY PRN Constipation 02/06/22 02/06/22 History oral powder packet (Miralax) rivastigmine 9.5 mg/24 hour 1 patch topical .Q24HR 02/06/22 02/06/22 History transdermal patch sennosides 8.6 mg-docusate sodium 1 tab-cap PO DAILY PRN Constipation 02/06/22 02/06/22 History 50 mg tablet (Senokot-S) sitagliptin 50 mg tablet (Januvia) 100 mg PO DAILY 02/06/22 02/06/22 History umeclidinium 62.5 mcg/actuation 1 inh inhalation DAILY 02/06/22 02/06/22 History blister powder for inhalation (Incruse Ellipta) Past Med/Surg History Medical History Anxiety Asthma CAD (coronary artery disease) COPD (chronic obstructive pulmonary disease) COVID-19 Delirium Diabetes mellitus, type II Generalized weakness GERD (gastroesophageal reflux disease) History of TIA (transient ischemic attack) Hyperlipidemia Hypertension Multiple fractures of ribs of left side Parkinson's disease Transient confusion Surgical History Hx of appendectomy S/P cholecystectomy Stented coronary artery Family History Other Diabetes Heart disease Hypertension Social History Smoking Status: Former smoker Tobacco Type: Cigarettes Do You Dip or Chew Tobacco: No; Tobacco Cessation Education Requested by Patient: No Hx Alcohol Use: No (pt unable to provide information) Hx Substance Use: No (pt unable to provide information) Preferred Language: Kinyarwanda Communication Ability: Unable Prosthetic Technician Required: No Beliefs That Will Affect Care: None marital status: / Current Living Situation: Rehab Current Living Situation Comment: lives with sisters current occupational status: retired 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[employer] [place] How many Children do You have: 0 Feels Safe at Home: Declines to Answer Safety Concerns: Feels Safe At This Time Assistive Devices: Cane and Walker Review of Systems Review of Systems: Could not be reliably obtained secondary to obtunded state Physical Exam Physical Exam: GENERAL: Obtunded, no respiratory distress SKIN: Pallor , warm HEENT: Pale palpebral conjunctivae, no ptosis, dry buccal mucosa NECK : Supple, no tenderness CHEST : CTA, no tenderness HEART : RRR, no obvious murmurs ABDOMEN: Some distention, nontender EXTREMITIES : Indurated left second toe with LLE swelling streaking, no overt tenderness, overlapping/underlapping toes both feet NEUROLOGIC : Obtunded, no facial asymmetry, gait and stance not assessed Results & Data Results & Data ([facility]) Vital Signs (Past 12 Hours) Vital Signs Temp Pulse Resp BP BP Pulse Ox O2 Del Method 02/05/22 23:01 63 14 133/61 96 Room Air 02/05/22 22:21 64 17 111/63 96 Room Air 02/05/22 22:00 68 17 02/05/22 21:30 67 23 02/05/22 21:00 66 26 H 02/05/22 21:00 115/92 02/05/22 20:30 68 21 97 02/05/22 20:17 67 21 99 02/05/22 22:17 18 128/74 96 Room Air 02/05/22 20:17 36.5 C 90 14 125/73 98 Room Air Laboratory Results Laboratory Results WBC 7.00 K/ul (4.8-10.8) 02/05/22 20:20 RBC 4.00 M/uL (3.93-5.22) 02/05/22 20:20 Hgb 11.8 g/dl (12.0-16.0) L 02/05/22 20:20 Hct 36.9 % (34.1-44.9) 02/05/22 20:20 MCV 92.3 fL (80.0-100.0) 02/05/22 20:20 MCH 29.5 pg (25.0-34.0) 02/05/22 20:20 MCHC 32.0 g/dL (32.0-36.0) 02/05/22 20:20 RDW Std Deviation 48.5 fL (36.4-46.3) H 02/05/22 20:20 RDW Coeff of Jayden 14.4 % (11.5-14.5) 02/05/22 20:20 Plt Count 332 K/uL (130-400) 02/05/22 20:20 MPV 10.0 fL (9.4-12.3) 02/05/22 20:20 Immature Gran % (Auto) 0.1 % 02/05/22 20:20 Neut % (Auto) 61.9 % 02/05/22 20:20 Lymph % (Auto) 25.3 % 02/05/22 20:20 Hart % (Auto) 11.0 % 02/05/22 20:20 Eos % (Auto) 1.4 % 02/05/22 20:20 Baso % (Auto) 0.3 % 02/05/22 20:20 Neut # (Auto) 4.33 K/uL (1.4-6.5) 02/05/22 20:20 Lymph # (Auto) 1.77 K/uL (1.2-3.4) 02/05/22 20:20 Hart # (Auto) 0.77 K/uL (0.24-0.82) 02/05/22 20:20 Eos # (Auto) 0.10 K/uL (0-0.50) 02/05/22 20:20 Baso # (Auto) 0.02 K/uL (0-0.2) 02/05/22 20:20 Immature Gran # (Auto) 0.01 K/uL (0.00-0.02) 02/05/22 20:20 Sodium 140 mmol/L (136-145) 02/05/22 20:20 Potassium 4.7 mmol/L (3.5-5.1) 02/05/22 20:20 Chloride 105 mmol/L (98-107) 02/05/22 20:20 Carbon Dioxide 25 mmol/L (21-32) 02/05/22 20:20 Anion Gap 10 (3-11) 02/05/22 20:20 BUN 32 mg/dl (6-23) H 02/05/22 20:20 Creatinine 1.22 mg/dl (0.6-1.2) H 02/05/22 20:20 Est Cr Clr Drug Dosing 36.8 ml/min 02/05/22 20:20 Est GFR ( Amer) 48.5 ml/min 02/05/22 20:20 Est GFR (Non-Af Amer) 41.8 ml/min 02/05/22 20:20 BUN/Creatinine Ratio 26.2 (10-20) H 02/05/22 20:20 Glucose 88 mg/dl (70-99(Fasting)) 02/05/22 20:20 Calcium 9.5 mg/dl (8.5-10.1) 02/05/22 20:20 Total Bilirubin 0.6 mg/dl (0.2-1.0) 02/05/22 20:20 AST 14 U/L (13-39) 02/05/22 20:20 ALT 4 U/L (7-52) L 02/05/22 20:20 Alkaline Phosphatase 58 U/L (34-104) 02/05/22 20:20 Troponin I High Sens 3.8 pg/ml (0-14) 02/05/22 20:20 Total Protein 6.3 gm/dl (6.0-8.3) 02/05/22 20:20 Albumin 3.7 gm/dl (3.4-5.0) 02/05/22 20:20 Globulin 2.6 gm/dl (2.5-4.0) 02/05/22 20:20 Albumin/Globulin Ratio 1.4 (0.9-2) 02/05/22 20:20 TSH 1.653 uIu/ml (0.300-4.500) 02/05/22 20:20 Urine Color Dark Yellow 02/05/22 22:45 Urine Appearance Clear (Clear) 02/05/22 22:45 Urine pH 5.0 (4.5-7.5) 02/05/22 22:45 Ur Specific Sabina 1.025 (1.000-1.030) 02/05/22 22:45 Urine Protein Negative (Negative) 02/05/22 22:45 Urine Glucose (UA) Negative (Negative) 02/05/22 22:45 Urine Ketones Trace (Negative) H 02/05/22 22:45 Urine Blood Negative (Negative) 02/05/22 22:45 Urine Nitrite Negative (Negative) 02/05/22 22:45 Urine Bilirubin Negative (Negative) 02/05/22 22:45 Urine Urobilinogen Negative (Negative) 02/05/22 22:45 Ur Leukocyte Esterase Negative (Negative) 02/05/22 22:[address] head initial read: Comparison CT head 01/27/2022 Stable left frontal encephalomalacia No ICH, mass effect or edema. No evidence of acute cortical stroke. Periventricular small vessel ischemic change. Visualized sinuses and mastoid air cells are clear Chest x-ray as per my interpretation atelectasis, cardiomegaly
[2022-02-06] MEDS ORDERED: DOXYCYCLINE HYCLATE 100 MG in DEXTROSE 5% 100 ML IV STA (00:34)
[2022-02-06] MEDS ORDERED: SODIUM CHLORIDE 0.9% 1000ML 1,000 ML IV ONE (01:28)
[2022-02-06] MEDS ORDERED: POLYETHYLENE (MIRALAX) 17 GM PACK PO PRN (02:53)
[2022-02-06] MEDS ORDERED: DOCUSATE SODIUM/SENNA 50/8.6MG TAB PO PRN (02:53)
[2022-02-06] MEDS ORDERED: GLUCOSE 10 TAB/TUBE PO PRN (03:47)
[2022-02-06] MEDS ORDERED: CARBOHYDRATES FOR HYPOGLYCEMIA PO PRN (03:47)
[2022-02-06] MEDS ORDERED: GLUCOSE 40% GEL 15 GM TUBE PO PRN (03:47)
[2022-02-06] MEDS ORDERED: DEXTROSE 50% 50 ML SYRINGE IV PRN (03:47)
[2022-02-06] MEDS ORDERED: ACETAMINOPHEN 325 MG TAB PO PRN (03:47)
[2022-02-06] MEDS ORDERED: LORazepam 2 MG/2 ML SYR IV PRN (03:47)
[2022-02-06] MEDS ORDERED: GLUCAGON FOR INJ 1 MG VIAL SQ PRN (03:47)
[2022-02-06] MEDS ORDERED: ARTIFICIAL TEARS OP PRN (03:59)
[2022-02-06] MEDS ORDERED: LORazepam 1 MG in SYRINGE 0 ML IV PRN (04:02)
[2022-02-06] MEDS: INSULIN ASPART PER UNIT SC SCH ×5 (04:16→21:00)
[2022-02-06] MEDS ORDERED: HEPARIN SOD 5,000 UNIT/0.5 ML VIAL SQ SCH (06:00)
--- NOTE | 2022-02-06 07:03 | CT Scan Report ---
LEFT FOOT CT WITHOUT CONTRAST CLINICAL HISTORY: Left foot swelling. COMPARISON STUDY: No previous studies for comparison. TECHNIQUE: Axial images of the left foot were obtained without IV contrast. Sagittal and coronal bipin nstructions were viewed. Automated exposure control was utilized for the study. A dose lowering tech nique was utilized adhering to the principles of ALARA. FINDINGS: Hallux valgus deformity is noted. Moderate osteoarthritis of the left first metatarsophalan geal joint is present. Alignment of the left foot is otherwise anatomic. No acute fracture is identif ied. There is no CT evidence for acute osteomyelitis within the left foot. Tarsometatarsal joints are intact. There is moderate mid foot joint space narrowing with osteophytosis consistent with osteoart hritis. Moderate plantar and minimal posterior calcaneal spurring is present. No suspicious osseous l esions are present. No erosive changes are present. Toes are suboptimally assessed given the chronic deformities. No fluid collections right identified. There may be a small tibiotalar joint effusion. IMPRESSION: 1. No acute fracture or dislocation within the left foot. 2. Hallux valgus with moderate osteoarthritis of the left first metatarsophalangeal joint. 3. Moderate mid foot osteoarthritis. 4. No CT evidence for acute osteomyelitis within the left foot. ACT 112: Negative or not required by law. Electronically signed by: Rj Andrew M.D. 02/06/2022 7:01 AM
--- NOTE | 2022-02-06 07:09 | CT Scan Report ---
HEAD CT NONCONTRAST CT DOSE: 537.48 mGy.cm HISTORY: Altered mental status TECHNIQUE: Multiaxial CT images of the head were performed without the use of intravenous contrast. A utomated exposure control was utilized for this study. A dose lowering technique was utilized adheri ng to the principles of ALARA. Comparison: Head CT 01/27/2022. Findings: The paranasal sinuses and mastoid air cells are clear. The calvarium and skull base are int act. There is no mass, hematoma, midline shift, acute infarct. White matter hypodensity is nonspecifi c but suggestive of microvascular ischemic change. The ventricles and sulci demonstrate mild age-rela brayan involutional changes. Old small left frontal lobe infarct and an old lacunar infarct within the r ight cerebellar hemisphere. Impression: No significant change compared to the prior study. No acute intracranial abnormality. ACT 112: Negative or not required by law. Electronically signed by: Fermin Chavarria M.D. 02/06/2022 7:08 AM
[2022-02-06] MEDS: CARBIDOPA/LEVODOPA 25/100MG TAB PO SCH ×4 (07:18→20:50)
[2022-02-06] MEDS: CYANOCOBALAMIN (B-12) 2,500 MCG TABLET SL SCH (07:19)
[2022-02-06] MEDS: BISOPROLOL FUMARATE 5 MG TAB PO SCH (07:19)
[2022-02-06] MEDS: DULoxetine HCL 30 MG CAP PO SCH ×2 (07:20→20:50)
[2022-02-06] MEDS: DOCUSATE SODIUM 100 MG CAP PO SCH (07:20)
[2022-02-06] MEDS: MIRABEGRON ER 25 MG TAB PO SCH (07:21)
[2022-02-06] MEDS: FLUTICASONE/VILANTEROL 200/25MCG 14 PUFFS/INHALER INH SCH (07:21)
[2022-02-06] MEDS: ENOXAPARIN INJ 30 MG/0.3 ML SYR SQ SCH (07:24)
[2022-02-06] MEDS: UMECLIDINIUM BROMIDE 62.5MCG/BLISTER 7 PUFFS/INHALER INH SCH (07:24)
[2022-02-06 07:58] LABS: Basophils # (auto) 0.02 K/uL (0-0.2); Basophils % (auto) 0.3 %; Eosinophils # (auto) 0.11 K/uL (0-0.50); Eosinophils % (auto) 1.7 %; Hematocrit (blood only) 36.4 % (34.1-44.9); Hemoglobin 11.8 g/dl (12.0-16.0); Immature Granulocytes # (auto) 0.05 K/uL (0.00-0.02); Immature Granulocytes % (auto) 0.8 %; Lymphocytes # (auto) 1.36 K/uL (1.2-3.4); Mean Corpuscular Hemoglobin 29.5 pg (25.0-34.0); Mean Corpuscular Hgb Conc 32.4 g/dL (32.0-36.0); Mean Platelet Volume 9.8 fL (9.4-12.3); Monocytes # (auto) 0.68 K/uL (0.24-0.82); Monocytes % (auto) 10.5 %; Neutrophils # (auto) 4.25 K/uL (1.4-6.5); Neutrophils % (auto) 65.7 %; Platelet Count 270 K/uL (130-400); RDW Coefficient of Variation 14.6 % (11.5-14.5); RDW Standard Deviation 48.6 fL (36.4-46.3); White Blood Count 6.47 K/ul (4.8-10.8)
--- NOTE | 2022-02-06 08:20 | XRay Report ---
XR chest 1V portable HISTORY: weakness COMPARISON: Chest 01/27/2022. FINDINGS: No pneumothorax. No pleural effusions. There are low lung volumes. The heart is borderline enlarged. There are few bibasilar linear densities favoring subsegmental atelectasis. Otherwise, no n ew focal lung consolidations to suggest a pneumonia. No evidence for pulmonary edema. IMPRESSION: Low lung volumes with borderline enlargement of the cardiac silhouette. ACT 112: Negative or not required by law. Electronically signed by: Fermin Chavarria M.D. 02/06/2022 8:18 AM
[2022-02-06 08:24] LABS: BUN Creatinine Ratio 30.4 (10-20); Calcium 8.9 mg/dl (8.5-10.1); Creatinine Clr Calc Pharmacy 48.3 ml/min; Est GFR (African American) 68.2 ml/min; Est GFR (Non-African American) 58.8 ml/min; Potassium 4.1 mmol/L (3.5-5.1)
[2022-02-06] MEDS ORDERED: CARBIDOPA/LEVODOPA 25/100MG TAB PO SCH (09:00)
--- NOTE | 2022-02-06 14:49 | Communication Note ---
Date of Service: February 06, 2022 the patient was seen and examined in presence of the family members. She has a history of Parkinson's disease with complications and was admitted with acute metabolic and colopathy. The patient remains less responsive but has been following commands and remains hemodynamically stable. Awaiting neurology evaluation. The full progress note will be done tomorrow. Dr Meenu Clark
--- NOTE | 2022-02-06 16:34 | Electroencephalogram ---
EEG Procedure Note Date of Service February 06, 2022 Start / End Times Start Time: 8:13 End Time: 8:33 Referring Physician Toy Farmer MD History AMS Home Medication List Medication Instructions Recorded Confirmed Type Ocular Lubricant 2 drp OPB BID PRN Dry Eyes 02/06/22 02/06/22 History acetaminophen 325 mg tablet 650 mg PO QID PRN Pain 02/06/22 02/06/22 History (Tylenol) albuterol sulfate 90 mcg/actuation 2 puff inhalation Q4 PRN Shortness 02/06/22 02/06/22 History aerosol inhaler Of Breath Or Wheezing atorvastatin 10 mg tablet 10 mg PO HS 02/06/22 02/06/22 History bisoprolol fumarate 5 mg tablet 5 mg PO DAILY 02/06/22 02/06/22 History carbidopa 25 mg-levodopa 100 mg 1.5 tab PO TID 02/06/22 02/06/22 History tablet carbidopa 25 mg-levodopa 100 mg 2 tab PO .QBREAKFAST 02/06/22 02/06/22 History tablet cyanocobalamin (vitamin B-12) 2,500 mcg PO DAILY 02/06/22 02/06/22 History 2,500 mcg tablet docusate sodium 100 mg capsule 100 mg PO DAILY 02/06/22 02/06/22 History duloxetine 30 mg capsule,delayed 30 mg PO Q12 02/06/22 02/06/22 History release fluticasone furoate 200 1 inh inhalation DAILY 02/06/22 02/06/22 History mcg-vilanterol 25 mcg/dose inhalation powder (Breo Ellipta) glimepiride 1 mg tablet 0.5 mg PO DAILY 02/06/22 02/06/22 History heparin (porcine) 5,000 unit/mL 5,000 unit subcut Q8H 02/06/22 02/06/22 History injection solution hydrochlorothiazide 12.5 mg tablet 6.25 mg PO DAILY 02/06/22 02/06/22 History lorazepam 0.5 mg tablet 0.5 mg PO BID PRN Anxiety 02/06/22 02/06/22 History losartan 25 mg tablet 25 mg PO Q8 02/06/22 02/06/22 History magnesium hydroxide 400 mg/5 mL 30 ml PO DAILY PRN Constipation 02/06/22 02/06/22 History oral suspension (Milk of Magnesia) metformin 1,000 mg tablet 1,000 mg PO BID 02/06/22 02/06/22 History mirabegron 25 mg tablet,extended 50 mg PO DAILY 02/06/22 02/06/22 History release 24 hr (Myrbetriq) nitroglycerin 0.4 mg sublingual 0.5 mg sublingual .Q5MIN PRN Chest 02/06/22 02/06/22 History tablet (Nitrostat) Pain ondansetron HCl 4 mg tablet 4 mg PO Q4 PRN .NAUSEA/VOMITING 02/06/22 02/06/22 History polyethylene glycol 3350 17 gram 17 g PO DAILY PRN Constipation 02/06/22 02/06/22 History oral powder packet (Miralax) rivastigmine 9.5 mg/24 hour 1 patch topical .Q24HR 02/06/22 02/06/22 History transdermal patch sennosides 8.6 mg-docusate sodium 1 tab-cap PO DAILY PRN Constipation 02/06/22 02/06/22 History 50 mg tablet (Senokot-S) sitagliptin 50 mg tablet (Januvia) 100 mg PO DAILY 02/06/22 02/06/22 History umeclidinium 62.5 mcg/actuation 1 inh inhalation DAILY 02/06/22 02/06/22 History blister powder for inhalation (Incruse Ellipta) Inpatient Medication List Bisoprolol Fumarate (Bisoprolol Fumarate 5 Mg Tab) 5 mg PO DAILY [facility] Stop: 03/08/22 08:59 Last Admin: 02/06/22 07:19 Dose: Not Given Documented By: ALANA Carbidopa/Levodopa (Carbidopa/Levodopa 25/100mg Tab) 2 tab PO QDB ROXANNE Stop: 03/08/22 07:29 Last Admin: 02/06/22 07:18 Dose: Not Given Documented By: ALANA Carbidopa/Levodopa (Carbidopa/Levodopa 25/100mg Tab) 1.5 tab PO 1300,1700,2100 [facility] Stop: 03/08/22 12:59 Last Admin: 02/06/22 15:15 Dose: 1.5 tab Documented By: Admin: 02/06/22 11:12 Dose: Not Given Documented By: ALANA Cyanocobalamin (Cyanocobalamin (B-12) 2,500 Mcg Tablet) 2,500 mcg SL DAILY ROXANNE Stop: 03/08/22 08:59 Last Admin: 02/06/22 07:19 Dose: Not Given Documented By: ALANA Docusate Sodium (Docusate Sodium 100 Mg Cap) 100 mg PO DAILY ROXANNE Stop: 03/08/22 08:59 Last Admin: 02/06/22 07:20 Dose: Not Given Documented By: ALANA Duloxetine HCl (Duloxetine Hcl 30 Mg Cap) 30 mg PO Q12 ROXANNE Stop: 03/08/22 08:59 Last Admin: 02/06/22 07:20 Dose: Not Given Documented By: ALANA Enoxaparin Sodium (Enoxaparin Inj 30 Mg/0.3 Ml Syr) 30 mg SQ QAM ROXANNE Stop: 03/08/22 08:59 Last Admin: 02/06/22 07:24 Dose: 30 mg Documented By: ALANA Fluticasone/Vilanterol (Fluticasone/Vilanterol 200/25mcg 14 Puffs/Inhaler) 1 puffs INH DAILY ROXANNE Stop: 03/08/22 08:59 Last Admin: 02/06/22 07:21 Dose: Not Given Documented By: ALANA Sodium Chloride (Nss 1000ml) 1,000 mls @ 60 mls/hr IV .[id number] ONE Stop: 02/06/22 18:07 Last Admin: 02/06/22 04:04 Dose: 60 mls/hr Documented By: WANDY Insulin Aspart (Insulin Aspart Per Unit) 0 units SC ACHS ROXANNE Stop: 03/08/22 03:46 Last Admin: 02/06/22 11:05 Dose: Not Given Documented By: Admin: 02/06/22 10:29 Dose: Not Given Documented By: Admin: 02/06/22 04:16 Dose: Not Given Documented By: WANDY Mirabegron (Mirabegron Er 25 Mg Tab) 50 mg PO DAILY ROXANNE Stop: 03/08/22 08:59 Last Admin: 02/06/22 07:21 Dose: Not Given Documented By: ALANA Rivastigmine (Rivastigmine 9.5 Mg/24 Hour Patch) 1 patch TD DAILY ROXANNE Stop: 03/08/22 14:59 Last Admin: 02/06/22 15:14 Dose: 1 patch Documented By: ALANA Umeclidinium Felt (Umeclidinium Felt 62.5mcg/Blister 7 Puffs/Inhaler) 1 puffs INH DAILY ROXANNE Stop: 03/08/22 08:59 Last Admin: 02/06/22 07:24 Dose: Not Given Documented By: ALANA Discontinued Medications Cefazolin Sodium (Ancef 2000mg) 2,000 mg in 15 mls @ 3.75 mls/min IV NOW STA Stop: 02/06/22 00:18 Last Admin: 02/06/22 00:30 Dose: 3.75 mls/min Documented By: ANDRIA Sodium Chloride (Nss 1000ml) 500 mls @ 999 mls/hr IV .Q31M ONE Stop: 02/06/22 00:48 Last Infusion: 02/06/22 01:03 Dose: 0 mls/hr Documented By: Admin: 02/06/22 00:32 Dose: 999 mls/hr Documented By: ANDRIA Doxycycline Hyclate 100 mg/ (Dextrose) 110 mls @ 50 mls/hr IV NOW STA Stop: 02/06/22 02:45 Last Infusion: 02/06/22 03:32 Dose: 0 mls/hr Documented By: Admin: 02/06/22 01:00 Dose: 50 mls/hr Documented By: ANDRIA Miscellaneous (Rivastigmine 9.5 Mg/24 Hour Patch - Order Awaiting Action) 1 each N/A QS ROXANNE Stop: 03/08/22 07:59 Last Admin: 02/06/22 07:18 Dose: Not Given Documented By: ALANA Description This is a 21 electrode EEG with a single channel dedicated to limited EKG. The electrodes were placed in accordance with the International 10-20 system. Video recorded during whole study. Interpretation The patient has been lethargic throughout his EEG recording. During relative wakefulness, there is no distinctive posterior rhythm. Background activity shows diffuse slowing, composed of 3 to 2 Hz, low amplitude delta, intermixed with 4 to 6 Hz, moderate amplitude theta waveforms. During stage II sleep, vertex sharp waves and low amplitude sleep spindles are recorded bilaterally. Photic stimulations do not induce posterior driving responses. Hyperventilation is not attempted. There is no electrographic seizures or epileptogenic discharge during the study. Impression: This is an abnormal EEG, recorded in wakefulness and sleep, due to diffuse slowing, consistent with bihemispheric dysfunction, as seen in encephalopathies and neurodegenerative disorders. There is no electrographic seizures or epileptogenic discharge. Clinical Correlation Normal routine interictal EEG does not rule out seizure disorder. If clinically indicated, a follow-up study with sleep deprivation and prolonged recording might offer further information.
--- NOTE | 2022-02-06 17:14 | Neurology Consultation ---
Date of Consultation February 06, 2022 Assessment & Plan (1) Encephalopathy: Impression: The patient has a long history of Parkinson's disease in advanced stage. After changing Parkinson medications, the patient has become more somnolent, with sleeping difficulty, increased dyskinesia, and decreased oral intake. She was restless and lethargic on admission, which has been improved at least partially since yesterday. She is currently awake, with baseline dementia. She is able to move all extremities as usual. She is able to eat. Sinemet regimen was recently adjusted. The patient has been followed by her regular neurologist at movement disorders clinic in [place]. Recommendations and plan: IV hydration and monitoring oral intake. Management of metabolic derangements. If mental status improves, then she can be discharged back to rehab facility. There is no indication for additional imaging studies at this time. (2) Acute dehydration: (3) Parkinson's disease: Impression: The patient has long history of Parkinson's disease on Sinemet, for over 10 years. 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 She has been followed by a movement disorder specialist in [place]. Plan: We will keep the patient on the same dosage of Sinemet. The patient will be followed by movement disorder specialist in [place], and you for the recommendation for her parkinsonism and dyskinesia. Fall precautions. (4) Dyskinesia: Impression: The patient has long-term Sinemet induced dyskinesia, which was recently worsened after increasing Sinemet dosage. After decreasing dosage, dyskinesia has been subsided some. Involuntary dyskinetic movements are likely considered seizure-like activity in rehab facility. EEG is negative for any epileptogenic activity. Plan: Continue on current dosage of Sinemet treatment. Further recommendation per the patient's regular movement disorder specialist. Plan Thank you for the consultation. History of Present Illness Reason for Consultation: AMS, involuntary movements, Parkinson disease Requesting Physician: Oriana Clark MD Attending Physician: Oriana Clark MD History of Present Illness The patient is an 81-year-old pleasant female, who was transferred from rehab facility yesterday, because of altered mental status, and involuntary movements. She has long history of Parkinson's disease and cognitive impairment, which has been followed by movement disorder specialist in [place]. The patient has been visiting her sisters, in [place], and apparently had medical problems and extended her stay. She fell down during walking, and was hospitalized from January 27 to January 30. She hit her head, but the imaging studies were negative for acute pathology. She was discharged to rehab facility. According to sisters, the patient was doing quite well for few days. Then, they added extended release Sinemet to treatment, and the patient began having worsening dyskinesia. She was more somnolent, and has not been eating and drinking well for last few days, and yesterday, she was having more involuntary movements, which raised concern for seizures, and the patient was transferred to emergency department. She slept well last night, and started on IV fluid replacement. She is currently awake, able to eat. According to sisters, the patient has been improving gradually since yesterday. She has significant dyskinesias, from long-term Sinemet usage. Based on recommendation from movement disorder specialist, they decreased Sinemet dosage back to her prior regimen, with some improvement of dyskinesia. She has progressive cognitive decline, which has been treated on rivastigmine patch. She has Parkinson's disease related dementia. She has increased tone, bradykinesia, shuffling gait, and increased risk of fall. She can still ambulate with walker. However, for last few days, she has been mostly bedridden because of hypersomnolence and generalized f atigue. Recent brain MRI during last hospitalization was negative for acute pathology. She does not show any focal neurological deficit at this time. EEG was completed this morning, which did not show epileptogenic activity but diffuse slowing, as seen in encephalopathies and neurodegenerative disorders. I have reviewed the patient's chart including recent imaging studies and visualized them personally. I have discussed the case with family and answered their questions in detail. Allergies Allergy/AdvReac Type Severity Reaction Status Date / Time fluconazole Allergy Severe hives,rash,respiratory Unverified 02/06/22 01:38 difficulty hydrochlorothiazide Allergy Severe Rash Unverified 02/06/22 01:38 triamterene Allergy Severe Rash Unverified 02/06/22 01:38 erythromycin base Allergy Intermediate n/a, rash Unverified 02/06/22 01:38 isosorbide Allergy Intermediate head Unverified 02/06/22 01:38 NSAIDS (Non-Steroidal Allergy Intermediate hives,rash Unverified 02/06/22 01:38 Anti-Inflamma amifostine Allergy Unknown Unverified 02/06/22 01:38 fluticasone Allergy Unknown Unverified 02/06/22 01:38 lisinopril Allergy Unknown Unverified 02/06/22 01:38 Penicillins Allergy Unknown Unverified 02/06/22 01:38 ethyl alcohol AdvReac Unknown Unverified 02/06/22 01:38 Home Medications Medication Instructions Recorded Confirmed Type Ocular Lubricant 2 drp OPB BID PRN Dry Eyes 02/06/22 02/06/22 History acetaminophen 325 mg tablet 650 mg PO QID PRN Pain 02/06/22 02/06/22 History (Tylenol) albuterol sulfate 90 mcg/actuation 2 puff inhalation Q4 PRN Shortness 02/06/22 02/06/22 History aerosol inhaler Of Breath Or Wheezing atorvastatin 10 mg tablet 10 mg PO HS 02/06/22 02/06/22 History bisoprolol fumarate 5 mg tablet 5 mg PO DAILY 02/06/22 02/06/22 History carbidopa 25 mg-levodopa 100 mg 1.5 tab PO TID 02/06/22 02/06/22 History tablet carbidopa 25 mg-levodopa 100 mg 2 tab PO .QBREAKFAST 02/06/22 02/06/22 History tablet cyanocobalamin (vitamin B-12) 2,500 mcg PO DAILY 02/06/22 02/06/22 History 2,500 mcg tablet docusate sodium 100 mg capsule 100 mg PO DAILY 02/06/22 02/06/22 History duloxetine 30 mg capsule,delayed 30 mg PO Q12 02/06/22 02/06/22 History release fluticasone furoate 200 1 inh inhalation DAILY 02/06/22 02/06/22 History mcg-vilanterol 25 mcg/dose inhalation powder (Breo Ellipta) glimepiride 1 mg tablet 0.5 mg PO DAILY 02/06/22 02/06/22 History heparin (porcine) 5,000 unit/mL 5,000 unit subcut Q8H 02/06/22 02/06/22 History injection solution hydrochlorothiazide 12.5 mg tablet 6.25 mg PO DAILY 02/06/22 02/06/22 History lorazepam 0.5 mg tablet 0.5 mg PO BID PRN Anxiety 02/06/22 02/06/22 History losartan 25 mg tablet 25 mg PO Q8 02/06/22 02/06/22 History magnesium hydroxide 400 mg/5 mL 30 ml PO DAILY PRN Constipation 02/06/22 02/06/22 History oral suspension (Milk of Magnesia) metformin 1,000 mg tablet 1,000 mg PO BID 02/06/22 02/06/22 History mirabegron 25 mg tablet,extended 50 mg PO DAILY 02/06/22 02/06/22 History release 24 hr (Myrbetriq) nitroglycerin 0.4 mg sublingual 0.5 mg sublingual .Q5MIN PRN Chest 02/06/22 02/06/22 History tablet (Nitrostat) Pain ondansetron HCl 4 mg tablet 4 mg PO Q4 PRN .NAUSEA/VOMITING 02/06/22 02/06/22 History polyethylene glycol 3350 17 gram 17 g PO DAILY PRN Constipation 02/06/22 02/06/22 History oral powder packet (Miralax) rivastigmine 9.5 mg/24 hour 1 patch topical .Q24HR 02/06/22 02/06/22 History transdermal patch sennosides 8.6 mg-docusate sodium 1 tab-cap PO DAILY PRN Constipation 02/06/22 02/06/22 History 50 mg tablet (Senokot-S) sitagliptin 50 mg tablet (Januvia) 100 mg PO DAILY 02/06/22 02/06/22 History umeclidinium 62.5 mcg/actuation 1 inh inhalation DAILY 02/06/22 02/06/22 History blister powder for inhalation (Incruse Ellipta) Patient History Medical History Anxiety Asthma CAD (coronary artery disease) COPD (chronic obstructive pulmonary disease) COVID-19 Delirium Diabetes mellitus, type II Generalized weakness GERD (gastroesophageal reflux disease) History of TIA (transient ischemic attack) Hyperlipidemia Hypertension Multiple fractures of ribs of left side Parkinson's disease Transient confusion Surgical History Hx of appendectomy S/P cholecystectomy Stented coronary artery Family History Other Diabetes Heart disease Hypertension Social History Smoking Status: Former smoker Tobacco Type: Cigarettes Do You Dip or Chew Tobacco: No; Tobacco Cessation Education Requested by Patient: No Hx Alcohol Use: No (pt unable to provide information) Hx Substance Use: No (pt unable to provide information) Preferred Language: Faroese Communication Ability: Unable Activity Aide Required: No Beliefs That Will Affect Care: None marital status: / Current Living Situation: Rehab Current Living Situation Comment: lives with sisters current occupational status: retired 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 HEENT: Normal exam with inspection. CV: Hearth rhythm is regular. Neck: Supple, no carotid bruits. Lungs: Non-labored and comfortable breathing. Abdomen: Soft, non-tender, non-distended. Skin: No rash or ecchymosis. Extremities: No edema or cyanosis NEUROLOGICAL EXAMINATION: Mental Status: Alert and oriented to person but not to place and time. Pleasantly demented. Cranial Nerves: II-XII are intact. No nystagmus. Funduscopy: Unable to visualize Motor: 5-/5 in all extremities without asymmetry. Bilateral proximal leg muscle strength is 4+/5 Tone: Increased tone with cogwheeling rigidity ANA: + Bradykinesia Sensory: Grossly intact with decreased sensation in feet Coordination: No dysmetria with FTN testing. Speech: Fluent. Comprehension is intact. Limited verbal output. Gait: Not assessed Musculoskeletal: Normal muscle bulk, no atrophy. + hypophonia ++ mask facies +++ Dyskinesia involving all extremities and some of truncal muscles Results & Data ([facility]) Vital Signs (Past 12 Hours) Vital Signs Temp Pulse Pulse Resp BP Pulse Ox O2 Del Method 02/06/22 16:18 65 02/06/22 15:36 37.0 C 68 18 173/79 H 97 Room Air 02/06/22 11:02 36.7 C 60 18 147/72 H 98 Room Air 02/06/22 07:13 60 02/06/22 06:48 61 Laboratory Results Laboratory Results - last 24 hr 02/05/22 02/05/22 02/05/22 20:20 20:20 20:20 WBC 7.00 RBC 4.00 Hgb 11.8 L Hct 36.9 MCV 92.3 MCH 29.5 MCHC 32.0 RDW Std Deviation 48.5 H RDW Coeff of Jayden 14.4 Plt Count 332 MPV 10.0 Immature Gran % (Auto) 0.1 Neut % (Auto) 61.9 Lymph % (Auto) 25.3 [place] % (Auto) 11.0 Eos % (Auto) 1.4 Baso % (Auto) 0.3 Neut # (Auto) 4.33 Lymph # (Auto) 1.77 [place] # (Auto) 0.77 Eos # (Auto) 0.10 Baso # (Auto) 0.02 Immature Gran # (Auto) 0.01 Sodium 140 Potassium 4.7 Chloride 105 Carbon Dioxide 25 Anion Gap 10 BUN 32 H Creatinine 1.22 H Est Cr Clr Drug Dosing 36.8 Est GFR ( Amer) 48.5 Est GFR (Non-Af Amer) 41.8 BUN/Creatinine Ratio 26.2 H Glucose 88 POC Glucose Calcium 9.5 Magnesium Total Bilirubin 0.6 AST 14 ALT 4 L Alkaline Phosphatase 58 Troponin I High Sens 3.8 Total Protein 6.3 Albumin 3.7 Globulin 2.6 Albumin/Globulin Ratio 1.4 TSH 1.653 Urine Color Urine Appearance Urine pH Ur Specific [place] Urine Protein Urine Glucose (UA) Urine Ketones Urine Blood Urine Nitrite Urine Bilirubin Urine Urobilinogen Ur Leukocyte Esterase Nasal Screen MRSA (PCR) SARS-CoV-2, RNA, NAAT 02/05/22 02/05/22 02/06/22 20:20 22:45 04:08 WBC RBC Hgb Hct MCV MCH MCHC RDW Std Deviation RDW Coeff of [place] Plt Count MPV Immature Gran % (Auto) Neut % (Auto) Lymph % (Auto) [place] % (Auto) Eos % (Auto) Baso % (Auto) Neut # (Auto) Lymph # (Auto) [place] # (Auto) Eos # (Auto) Baso # (Auto) Immature Gran # (Auto) Sodium Potassium Chloride Carbon Dioxide Anion Gap BUN Creatinine Est Cr Clr Drug Dosing Est GFR ( Amer) Est GFR (Non-Af Amer) BUN/Creatinine Ratio Glucose POC Glucose 115 H Calcium Magnesium 2.0 Total Bilirubin AST ALT Alkaline Phosphatase Troponin I High Sens Total Protein Albumin Globulin Albumin/Globulin Ratio TSH Urine Color Dark Yellow Urine Appearance Clear Urine pH 5.0 Ur Specific [place] 1.025 Urine Protein Negative Urine Glucose (UA) Negative Urine Ketones Trace H Urine Blood Negative Urine Nitrite Negative Urine Bilirubin Negative Urine Urobilinogen Negative Ur Leukocyte Esterase Negative Nasal Screen MRSA (PCR) SARS-CoV-2, RNA, NAAT 02/06/22 02/06/22 02/06/22 07:15 07:30 07:30 WBC 6.47 RBC 4.00 Hgb 11.8 L Hct 36.4 MCV 91.0 MCH 29.5 MCHC 32.4 RDW Std Deviation 48.6 H RDW Coeff of Jayden 14.6 H Plt Count 270 MPV 9.8 Immature Gran % (Auto) 0.8 Neut % (Auto) 65.7 Lymph % (Auto) 21.0 [place] % (Auto) 10.5 Eos % (Auto) 1.7 Baso % (Auto) 0.3 Neut # (Auto) 4.25 Lymph # (Auto) 1.36 [place] # (Auto) 0.68 Eos # (Auto) 0.11 Baso # (Auto) 0.02 Immature Gran # (Auto) 0.05 H Sodium 137 Potassium 4.1 Chloride 106 Carbon Dioxide 26 Anion Gap 5 BUN 28 H Creatinine 0.92 D Est Cr Clr Drug Dosing 48.3 Est GFR ( Amer) 68.2 Est GFR (Non-Af Amer) 58.8 BUN/Creatinine Ratio 30.4 H Glucose 133 H POC Glucose Calcium 8.9 Magnesium Total Bilirubin AST ALT Alkaline Phosphatase Troponin I High Sens Total Protein Albumin Globulin Albumin/Globulin Ratio TSH Urine Color Urine Appearance Urine pH Ur Specific [place] Urine Protein Urine Glucose (UA) Urine Ketones Urine Blood Urine Nitrite Urine Bilirubin Urine Urobilinogen Ur Leukocyte Esterase Nasal Screen MRSA (PCR) Negative SARS-CoV-2, RNA, NAAT 02/06/22 02/06/22 02/06/22 11:38 16:54 Unknown WBC RBC Hgb Hct MCV MCH MCHC RDW Std Deviation RDW Coeff of [place]den Plt Count MPV Immature Gran % (Auto) Neut % (Auto) Lymph % (Auto) [place] % (Auto) Eos % (Auto) Baso % (Auto) Neut # (Auto) Lymph # (Auto) [place] # (Auto) Eos # (Auto) Baso # (Auto) Immature Gran # (Auto) Sodium Potassium Chloride Carbon Dioxide Anion Gap BUN Creatinine Est Cr Clr Drug Dosing Est GFR ( Amer) Est GFR (Non-Af Amer) BUN/Creatinine Ratio Glucose POC Glucose 116 H 112 H Calcium Magnesium Total Bilirubin AST ALT Alkaline Phosphatase Troponin I High Sens Total Protein Albumin Globulin Albumin/Globulin Ratio TSH Urine Color Urine Appearance Urine pH Ur Specific [place] Urine Protein Urine Glucose (UA) Urine Ketones Urine Blood Urine Nitrite Urine Bilirubin Urine Urobilinogen Ur Leukocyte Esterase Nasal Screen MRSA (PCR) SARS-CoV-2, RNA, NAAT NEGATIVE Diagnostic Findings Head CT 02/05/22 21:[address] DOSE: 537.48 mGy.cm HISTORY: Altered mental status TECHNIQUE: Multiaxial CT images of the head were performed without the use of intravenous contrast. Automated exposure control was utilized for this study. A dose lowering technique was utilized adhering to the principles of ALARA. Comparison: Head CT 01/27/2022. Findings: The paranasal sinuses and mastoid air cells are clear. The calvarium and skull base are intact. There is no mass, hematoma, midline shift, acute infarct. White matter hypodensity is nonspecific but suggestive of microvascular ischemic change. The ventricles and sulci demonstrate mild age-related involutional changes. 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 Impression: No significant change compared to the prior study. No acute intracranial abnorma lity. ACT 112: Negative or not required by law. Electronically signed by: Fermin Chavarria M.D. 02/06/2022 7:08 AM Chest X-Ray 02/06/22 00:11 XR chest 1V portable HISTORY: weakness COMPARISON: Chest 01/27/2022. FINDINGS: No pneumothorax. No pleural effusions. There are low lung volumes. The heart is borderline enlarged. There are few bibasilar linear densities favoring subsegmental atelectasis. Otherwise, no new focal lung consolidations to suggest a pneumonia. No evidence for pulmonary edema. IMPRESSION: Low lung volumes with borderline enlargement of the cardiac silhouette. ACT 112: Negative or not required by law. Electronically signed by: Fermin Chavarria M.D. 02/06/2022 8:[address] 02/06/22 01:[address] WITHOUT CONTRAST CLINICAL HISTORY: Left foot swelling. COMPARISON STUDY: No previous studies for comparison. TECHNIQUE: Axial images of the left foot were obtained without IV contrast. Sagittal and coronal reconstructions were viewed. Automated exposure control was utilized for the study. A dose lowering technique was utilized adhering to the principles of ALARA. FINDINGS: Hallux valgus deformity is noted. 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 Alignment of the left foot is otherwise anatomic. No acute fracture is identified. There is no CT evidence for acute osteomyelitis within the left foot. Tarsometatarsal joints are intact. There is moderate mid foot joint space narrowing with osteophytosis consistent with osteoarthritis. Moderate plantar and minimal posterior calcaneal spurring is present. No suspicious osseous lesions are present. No erosive changes are present. Toes are suboptimally assessed given the chronic deformities. No fluid collections right identified. There may be a small tibiotalar joint effusion. IMPRESSION: 1. No acute fracture or dislocation within the left foot. 2. Hallux valgus with moderate osteoarthritis of the left first metatarsophalangeal joint. 3. Moderate mid foot osteoarthritis. 4. No CT evidence for acute osteomyelitis within the left foot. ACT 112: Negative or not required by law. Electronically signed by: Rj Andrew M.D. 02/06/2022 7:01 AM
[2022-02-06] MEDS: DOXYCYCLINE HYCLATE 100 MG CAP PO SCH (20:50)
--- NOTE | 2022-02-06 20:57 | Orthopedic Consultation ---
Date of Consultation February 06, 2022 Assessment & Plan (1) Cellulitis of second toe, left: Patient seen, evaluated, and treated. Awaiting culture and sensitives results. Continue Doxycycline. Reviewed CT images and findings. No signs of OM or Abscess. I evaluated the Patient for a left second diabetic toe ulcer. Manners in which pressure reduction could be achieved were investigated and initiated. Off- loading is a critical part of this patient's management. Interdigital gauze applied. Maintained compliance may be difficult. Patient is a candidate for interdigital toe comb or lambs wool. Will continue to monitor while in house. Thank you for allowing me to participate in the care of this Patient. (2) Diabetes mellitus, type II: History of Present Illness Attending Physician: Oriana Clark MD History of Present Illness Patient is an 81-year-old female seen at bedside this evening resting comfortably. Patient history positive for Parkinson's disease and cognitive i mpairment. She is awake but does not readily reply to inquires. Patient history taken from documentation. She was transferred from rehab facility yesterday because of altered mental status and involuntary movements. Patient is ambulatory but had recent fall down during walking, and was hospitalized from January 27 to January 30.Imaging studies were negative for acute pathology. She was discharged to rehab facility.Patient is evaluated today for overlapping toes resulting in left foot second toe partial thickness wound. Allergies Allergy/AdvReac Type Severity Reaction Status Date / Time fluconazole Allergy Severe hives,rash,respiratory Unverified 02/06/22 01:38 difficulty hydrochlorothiazide Allergy Severe Rash Unverified 02/06/22 01:38 triamterene Allergy Severe Rash Unverified 02/06/22 01:38 erythromycin base Allergy Intermediate n/a, rash Unverified 02/06/22 01:38 isosorbide Allergy Intermediate head Unverified 02/06/22 01:38 NSAIDS (Non-Steroidal Allergy Intermediate hives,rash Unverified 02/06/22 01:38 Anti-Inflamma amifostine Allergy Unknown Unverified 02/06/22 01:38 fluticasone Allergy Unknown Unverified 02/06/22 01:38 lisinopril Allergy Unknown Unverified 02/06/22 01:38 Penicillins Allergy Unknown Unverified 02/06/22 01:38 ethyl alcohol AdvReac Unknown Unverified 02/06/22 01:38 Home Medications Medication Instructions Recorded Confirmed Type Ocular Lubricant 2 drp OPB BID PRN Dry Eyes 02/06/22 02/06/22 History acetaminophen 325 mg tablet 650 mg PO QID PRN Pain 02/06/22 02/06/22 History (Tylenol) albuterol sulfate 90 mcg/actuation 2 puff inhalation Q4 PRN Shortness 02/06/22 02/06/22 History aerosol inhaler Of Breath Or Wheezing atorvastatin 10 mg tablet 10 mg PO HS 02/06/22 02/06/22 History bisoprolol fumarate 5 mg tablet 5 mg PO DAILY 02/06/22 02/06/22 History carbidopa 25 mg-levodopa 100 mg 1.5 tab PO TID 02/06/22 02/06/22 History tablet carbidopa 25 mg-levodopa 100 mg 2 tab PO .QBREAKFAST 02/06/22 02/06/22 History tablet cyanocobalamin (vitamin B-12) 2,500 mcg PO DAILY 02/06/22 02/06/22 History 2,500 mcg tablet docusate sodium 100 mg capsule 100 mg PO DAILY 02/06/22 02/06/22 History duloxetine 30 mg capsule,delayed 30 mg PO Q12 02/06/22 02/06/22 History release fluticasone furoate 200 1 inh inhalation DAILY 02/06/22 02/06/22 History mcg-vilanterol 25 mcg/dose inhalation powder (Breo Ellipta) glimepiride 1 mg tablet 0.5 mg PO DAILY 02/06/22 02/06/22 History heparin (porcine) 5,000 unit/mL 5,000 unit subcut Q8H 02/06/22 02/06/22 History injection solution hydrochlorothiazide 12.5 mg tablet 6.25 mg PO DAILY 02/06/22 02/06/22 History lorazepam 0.5 mg tablet 0.5 mg PO BID PRN Anxiety 02/06/22 02/06/22 History losartan 25 mg tablet 25 mg PO Q8 02/06/22 02/06/22 History magnesium hydroxide 400 mg/5 mL 30 ml PO DAILY PRN Constipation 02/06/22 02/06/22 History oral suspension (Milk of Magnesia) metformin 1,000 mg tablet 1,000 mg PO BID 02/06/22 02/06/22 History mirabegron 25 mg tablet,extended 50 mg PO DAILY 02/06/22 02/06/22 History release 24 hr (Myrbetriq) nitroglycerin 0.4 mg sublingual 0.5 mg sublingual .Q5MIN PRN Chest 02/06/22 02/06/22 History tablet (Nitrostat) Pain ondansetron HCl 4 mg tablet 4 mg PO Q4 PRN .NAUSEA/VOMITING 02/06/22 02/06/22 History polyethylene glycol 3350 17 gram 17 g PO DAILY PRN Constipation 02/06/22 02/06/22 History oral powder packet (Miralax) rivastigmine 9.5 mg/24 hour 1 patch topical .Q24HR 02/06/22 02/06/22 History transdermal patch sennosides 8.6 mg-docusate sodium 1 tab-cap PO DAILY PRN Constipation 02/06/22 02/06/22 History 50 mg tablet (Senokot-S) sitagliptin 50 mg tablet (Januvia) 100 mg PO DAILY 02/06/22 02/06/22 History umeclidinium 62.5 mcg/actuation 1 inh inhalation DAILY 02/06/22 02/06/22 History blister powder for inhalation (Incruse Ellipta) Patient History Medical History Anxiety Asthma CAD (coronary artery disease) COPD (chronic obstructive pulmonary disease) COVID-19 Delirium Diabetes mellitus, type II Generalized weakness GERD (gastroesophageal reflux disease) History of TIA (transient ischemic attack) Hyperlipidemia Hypertension Multiple fractures of ribs of left side Parkinson's disease Transient confusion Surgical History Hx of appendectomy S/P cholecystectomy Stented coronary artery Family History Other Diabetes Heart disease Hypertension Social History Smoking Status: Former smoker Tobacco Type: Cigarettes Do You Dip or Chew Tobacco: No; Tobacco Cessation Education Requested by Patient: No Hx Alcohol Use: No (pt unable to provide information) Hx Substance Use: No (pt unable to provide information) Preferred Language: Sinhala Communication Ability: Unable Hands Parter Required: No Beliefs That Will Affect Care: None marital status: / Current Living Situation: Rehab Current Living Situation Comment: lives with sisters current occupational status: retired 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 Pedal pulses palpable. Proximal to distal cooling within normal limits. Musculoskeletal: Digital contractures 2-5 with abducto varus fifth toes. Hallux abducto valgus bilateral. Overlapping 1st and 2nd digits due to acquired deformities. Skin: Partial thickness wound present to left second medial digit. There is erythema to second digit consistent with partial thickness wound presence. There is no drainage. Wound edges show hyperkeratotic tissue secondary to adjacent toe pressure. Neurologic: Obtunded, no facial asymmetry, gait and stance not assessed Results & Data ([facility]) Vital Signs (Past 12 Hours) Vital Signs Temp Pulse Pulse Resp BP BP Pulse Ox 02/06/22 19:53 37.1 C 62 20 136/76 93 02/06/22 19:51 02/06/22 16:18 65 02/06/22 15:36 37.0 C 68 18 173/79 H 97 02/06/22 11:02 36.7 C 60 18 147/72 H 98 O2 Del Method 02/06/22 19:53 Room Air 02/06/22 19:51 Room Air 02/06/22 16:18 02/06/22 15:36 Room Air 02/06/22 11:02 Room Air Diagnostic Findings Source Toe,Left Second Procedure/Result Gram Stain - Final Wound Culture - Pending LEFT FOOT CT WITHOUT CONTRAST CLINICAL HISTORY: Left foot swelling. COMPARISON STUDY: No previous studies for comparison. TECHNIQUE: Axial images of the left foot were obtained without IV contrast. Sagittal and coronal reconstructions were viewed. Automated exposure control was utilized for the study. A dose lowering technique was utilized adhering to the principles of ALARA. FINDINGS: Hallux valgus deformity is noted. 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 Alignment of the left foot is otherwise anatomic. No acute fracture is identified. There is no CT evidence for acute osteomyelitis within the left foot. Tarsometatarsal joints are intact. There is moderate mid foot joint space narrowing with osteophytosis consistent with osteoarthritis. Moderate plantar and minimal posterior calcaneal spurring is present. No suspicious osseous lesions are present. No erosive changes are present. Toes are suboptimally assessed given the chronic deformities. No fluid collections right identified. There may be a small tibiotalar joint effusion. IMPRESSION: 1. No acute fracture or dislocation within the left foot. 2. Hallux valgus with moderate osteoarthritis of the left first metatarsophalangeal joint. 3. Moderate mid foot osteoarthritis. 4. No CT evidence for acute osteomyelitis within the left foot.
[2022-02-06] MEDS ORDERED: ATORVASTATIN 10 MG TAB PO SCH (21:00)
[2022-02-06] MEDS ORDERED: GADOBUTROL 65ML VIAL IV ONE (22:26)
[2022-02-07 05:53] LABS: Basophils # (auto) 0.03 K/uL (0-0.2); Basophils % (auto) 0.4 %; Eosinophils # (auto) 0.18 K/uL (0-0.50); Eosinophils % (auto) 2.6 %; Hematocrit (blood only) 35.6 % (34.1-44.9); Hemoglobin 11.6 g/dl (12.0-16.0); Immature Granulocytes # (auto) 0.03 K/uL (0.00-0.02); Immature Granulocytes % (auto) 0.4 %; Lymphocytes # (auto) 1.16 K/uL (1.2-3.4); Mean Corpuscular Hemoglobin 29.9 pg (25.0-34.0); Mean Corpuscular Hgb Conc 32.6 g/dL (32.0-36.0); Mean Corpuscular Volume 91.8 fL (80.0-100.0); Mean Platelet Volume 9.4 fL (9.4-12.3); Monocytes # (auto) 0.86 K/uL (0.24-0.82); Monocytes % (auto) 12.6 %; Neutrophils # (auto) 4.56 K/uL (1.4-6.5); Platelet Count 264 K/uL (130-400); RDW Coefficient of Variation 14.9 % (11.5-14.5); RDW Standard Deviation 49.9 fL (36.4-46.3); Red Blood Count 3.88 M/uL (3.93-5.22); White Blood Count 6.82 K/ul (4.8-10.8)
[2022-02-07 06:17] LABS: Albumin Globulin Ratio 1.5 (0.9-2); Albumin Level 3.4 gm/dl (3.4-5.0); BUN Creatinine Ratio 22.4 (10-20); Bilirubin,Total 0.7 mg/dl (0.2-1.0); Calcium 8.7 mg/dl (8.5-10.1); Creatinine Clr Calc Pharmacy 58.4 ml/min; Est GFR (African American) 85.9 ml/min; Est GFR (Non-African American) 74.1 ml/min; Globulin 2.3 gm/dl (2.5-4.0); Magnesium 1.7 mg/dl (1.7-2.4); Potassium 4.1 mmol/L (3.5-5.1); Total Protein 5.7 gm/dl (6.0-8.3)
--- NOTE | 2022-02-07 08:24 | Hospitalist Progress Note ---
Date of Service February 07, 2022 Assessment & Plan (1) Encephalopathy: Plan: Metabolic encephalopathy likely secondary to medications for Parkinson's disease and is complicated by left toe cellulitis and also RAMONA hx Parkinson's disease with cognitive impairment, Doubt any postictal state Clinically much better this morning and has been conversing normally Does have minimal dyskinesia involving the upper extremities Has been eating and taking her medications To get back to [facility] today Discussed with the physician at [facility] the patient will be transferred back to [facility] this afternoon RAMONA Likely secondary to dehydration Appropriate to hold home losartan and home diuretic for now until creatinine back to baseline Received cautious amount of IV fluids Creatinine has been normalized Advised to drink more fluid hx CAD status post stent No cardiac symptoms and remains stable Asthma/COPD as per records No shortness of breath at rest and no wheezing DM2 on oral medications, well-controlled as of recent hemoglobin A1c of 7 last October 2021 We will continue current outpatient medications chronic anemia, hemoglobin at baseline past tobacco abuse. DVT prophylaxis per Lovenox subcu Full code as per sisters. Patient sisters requesting updates for providers. Ja Itzel Oakes, contact #[phone]. . Jolanta Genna, contact #[phone]. Like to be transferred to [facility] this afternoon (2) Parkinson's disease: Plan: With significant dyskinesia likely secondary to use of Sinemet EEG has been negative for any seizure activity Dyskinetic movement seems to be improving with decreasing Sinemet doses [facility] we will adjust her medication for Parkinson's disease as we discussed with the machine maintenance servicer over the (3) Dyskinesia: Plan: As above (4) Hypertension: Plan: Will continue current medications on discharge (5) History of TIA (transient ischemic attack): Plan: No acute stroke and no recurrence of TIA (6) Cellulitis of second toe, left: Plan: No evidence of abscess and osteomyelitis Wound culture is growing staph species Awaiting sensitivity We will continue doxycycline for now Sensitivities still pending which will be conveyed to [facility] if anything otherwise (7) Hyperlipidemia: Plan: Continue statin Admission and Anticipated Discharge Date Admission Date: February 06, 2022 Subjective 02/07/2022 The patient was seen and examined in medical telemetry unit She has been feeling much better and conversing normally She does have her baseline dementia The dyskinetic movement is much improved Denies any other significant symptoms Review of Systems Review of Systems: All systems reviewed and are unremarkable except as noted below Musculoskeletal: Has minimal dyskinetic movement involving the upper extremity and shoulder girdle Neurologic: Moves all extremities Physical Exam Physical Exam: Lying in bed comfortably Constitutional: well developed, well nourished, + ill appearing and + obese Eyes: PERRL, conjunctivae normal, anicteric sclerae ENMT: external ear and nose normal, oropharynx normal Neck: trachea midline, no thyromegaly Respiratory: no respiratory distress Auscultation: lungs clear to auscultation bilaterally and + diminished lung sounds Cardiovascular: Rate/Rhythm: regular rate and regular rhythm; not tachycardic Heart Sounds: normal S1 and normal S2; no murmur Extremities: no edema Gastrointestinal (Abdomen): Inspection/Auscultation: normal bowel sounds; abdomen not distended Percussion/Palpation: abdomen soft; abdomen nontender Musculoskeletal: No acute arthritis involving any joint. Minimal dyskinetic movement involving the upper extremities and shoulder girdle Neurologic: Alert and awake. Pleasantly confused. Moves all extremities. No focal neurodeficit Lymphatic: no cervical or axillary lymphadenopathy Results & Data Results & Data ([facility]) Vital Signs (Past 12 Hours) Vital Signs Temp Pulse Pulse Resp BP Pulse Ox O2 Del Method 02/07/22 08:13 36.8 C 71 18 174/81 H 96 Room Air 02/07/22 07:17 65 02/07/22 04:48 63 18 162/66 H 96 Room Air 02/07/22 04:00 36.8 C 64 20 170/74 H 97 Room Air 02/06/22 23:00 37 C 58 L 20 174/76 H 95 Room Air Laboratory Results Short CBC 02/07/22 Range/Units 05:31 WBC 6.82 (4.8-10.8) K/ul Hgb 11.6 L (12.0-16.0) g/dl Hct 35.6 (34.1-44.9) % Plt Count 264 (130-400) K/uL BMP 02/07/22 05:31 Sodium 140 Potassium 4.1 Chloride 107 Carbon Dioxide 26 BUN 17 Creatinine 0.76 Glucose 118 H Calcium 8.7 Liver Function 02/07/22 Range/Units 05:31 Total Bilirubin 0.7 (0.2-1.0) mg/dl AST 9 L (13-39) U/L ALT 8 (7-52) U/L Alkaline Phosphatase 52 (34-104) U/L Albumin 3.4 (3.4-5.0) gm/dl Medications Administered Current Inpatient Medications Acetaminophen (Acetaminophen 325 Mg Tab) 650 mg PO Q4H PRN PRN Reason: Pain or Fever Stop: 03/08/22 03:46 Artificial Tears (Artificial Tears) 2 drops OP BID PRN PRN Reason: Dry Eyes Stop: 03/08/22 03:58 Atorvastatin Calcium (Atorvastatin 10 Mg Tab) 10 mg PO HS ROXANNE Stop: 03/08/22 20:59 Last Admin: 02/06/22 20:50 Dose: Not Given Bisoprolol Fumarate (Bisoprolol Fumarate 5 Mg Tab) 5 mg PO DAILY ROXANNE Stop: 03/08/22 08:59 Last Admin: 02/07/22 08:36 Dose: 5 mg Carbidopa/Levodopa (Carbidopa/Levodopa 25/100mg Tab) 2 tab PO QDB ROXANNE Stop: 03/08/22 07:29 Last Admin: 02/07/22 08:35 Dose: 2 tab Carbidopa/Levodopa (Carbidopa/Levodopa 25/100mg Tab) 1.5 tab PO 1300,1700,2100 ROXANNE Stop: 03/08/22 12:59 Last Admin: 02/06/22 20:50 Dose: Not Given Cyanocobalamin (Cyanocobalamin (B-12) 2,500 Mcg Tablet) 2,500 mcg SL DAILY ROXANNE Stop: 03/08/22 08:59 Last Admin: 02/07/22 08:34 Dose: 2,500 mcg Dextrose (Dextrose 50% 50 Ml Syringe) 25 - 50 ml IV UD PRN; Protocol PRN Reason: Hypoglycemia Protocol Stop: 03/08/22 03:46 Docusate Sodium (Docusate Sodium 100 Mg Cap) 100 mg PO DAILY ROXANNE Stop: 03/08/22 08:59 Last Admin: 02/07/22 08:34 Dose: 100 mg Doxycycline Hyclate (Doxycycline Hyclate 100 Mg Cap) 100 mg PO BID ROXANNE Stop: 02/13/22 20:59 Last Admin: 02/07/22 08:34 Dose: 100 mg Duloxetine HCl (Duloxetine Hcl 30 Mg Cap) 30 mg PO Q12 ROXNANE Stop: 03/08/22 08:59 Last Admin: 02/07/22 08:36 Dose: 30 mg Enoxaparin Sodium (Enoxaparin Inj 30 Mg/0.3 Ml Syr) 30 mg SQ QAM ROXANNE Stop: 03/08/22 08:59 Last Admin: 02/07/22 08:36 Dose: 30 mg Fluticasone/Vilanterol (Fluticasone/Vilanterol 200/25mcg 14 Puffs/Inhaler) 1 puffs INH DAILY ROXANNE Stop: 03/08/22 08:59 Last Admin: 02/07/22 08:37 Dose: 1 puffs Glucagon (Glucagon For Inj 1 Mg Vial) 1 mg SQ UD PRN; Protocol PRN Reason: Hypoglycemia Protocol Stop: 03/08/22 03:46 Glucose (Glucose 40% Gel 15 Gm Tube) 15 - 30 gm PO UD PRN; Protocol PRN Reason: Hypoglycemia Protocol Stop: 03/08/22 03:46 Glucose (Glucose 10 Tab/Tube) 4 - 8 tab PO UD PRN; Protocol PRN Reason: Hypoglycemia Treatment Stop: 03/08/22 03:46 Lorazepam 1 mg/ Syringe 1 mls @ 2 mls/min IV Q10M PRN PRN Reason: SEIZURE Stop: 03/08/22 04:01 Insulin Aspart (Insulin Aspart Per Unit) 0 units SC ACHS ROXANNE Stop: 03/08/22 03:46 Last Admin: 02/07/22 08:41 Dose: 3 units Mirabegron (Mirabegron Er 25 Mg Tab) 50 mg PO DAILY ROXANNE Stop: 03/08/22 08:59 Last Admin: 02/07/22 08:35 Dose: 50 mg Miscellaneous (Carbohydrates For Hypoglycemia ) 15 - 30 gm PO UD PRN PRN Reason: Hypoglycemia Protocol Stop: 03/08/22 03:46 Miscellaneous (Remove Rivastigmine Patch) 1 each N/A Q24H ROXANNE Stop: 03/09/22 08:58 Last Admin: 02/07/22 08:38 Dose: 1 each Polyethylene Glycol (Polyethylene (Miralax) 17 Gm Pack) 17 gm PO DAILY PRN PRN Reason: Constipation Stop: 03/08/22 02:52 Rivastigmine (Rivastigmine 9.5 Mg/24 Hour Patch) 1 patch TD DAILY ROXANNE Stop: 03/08/22 14:59 Last Admin: 02/07/22 08:39 Dose: 1 patch Senna/Docusate Sodium (Docusate Sodium/Senna 50/8.6mg Tab) 1 tab PO DAILY PRN PRN Reason: Constipation Stop: 03/08/22 02:52 Umeclidinium [place] (Umeclidinium [place] 62.5mcg/Blister 7 Puffs/Inhaler) 1 puffs INH DAILY [facility] Stop: 03/08/22 08:59 Last Admin: 02/07/22 08:37 Dose: 1 puffs
[2022-02-07] MEDS: CYANOCOBALAMIN (B-12) 2,500 MCG TABLET SL SCH (08:34)
[2022-02-07] MEDS: DOCUSATE SODIUM 100 MG CAP PO SCH (08:34)
[2022-02-07] MEDS: DOXYCYCLINE HYCLATE 100 MG CAP PO SCH (08:34)
[2022-02-07] MEDS: MIRABEGRON ER 25 MG TAB PO SCH (08:35)
[2022-02-07] MEDS: CARBIDOPA/LEVODOPA 25/100MG TAB PO SCH (08:35)
[2022-02-07] MEDS: DULoxetine HCL 30 MG CAP PO SCH (08:36)
[2022-02-07] MEDS: BISOPROLOL FUMARATE 5 MG TAB PO SCH (08:36)
[2022-02-07] MEDS: ENOXAPARIN INJ 30 MG/0.3 ML SYR SQ SCH (08:36)
[2022-02-07] MEDS: UMECLIDINIUM BROMIDE 62.5MCG/BLISTER 7 PUFFS/INHALER INH SCH (08:37)
[2022-02-07] MEDS: FLUTICASONE/VILANTEROL 200/25MCG 14 PUFFS/INHALER INH SCH (08:37)
[2022-02-07] MEDS: INSULIN ASPART PER UNIT SC SCH ×2 (08:41→12:52)
--- NOTE | 2022-02-07 08:46 | Magnetic Resonance Report ---
MRI OF THE BRAIN WITHOUT AND WITH IV CONTRAST SEIZURE PROTOCOL CLINICAL HISTORY: Seizure. COMPARISON STUDY: MRI of the brain November 23, 2021. Head CT February 05, 2022. TECHNIQUE: Utilizing a 1.5 Chrissie magnet and dedicated coil, multiplanar, multiecho imaging of the br ain was performed pre and postcontrast administration. IV administration of 7 mL of Gadavist contras t was uneventful. Thin cut coronal T2 imaging was performed according to seizure protocol. FINDINGS: This exam is mildly compromised by motion artifact although is diagnostic. There are no foc i of restricted diffusion to suggest acute infarct. No acute intracranial hemorrhage, midline shift o r mass effect is present. There is no intracranial mass or pathologic enhancement. 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 White matter T2 hyperintense foci suggest small vessel disease. The ap pearance of the brain is unchanged since MRI of November 23, 2021. There are symmetric bilateral mesial t emporal atrophy involving the hippocampi. Basal cisterns are patent. There are no intra-axial collect ions. Flow-voids for the major intracranial vessels are present. Old lacunar infarct within the right cerebellar hemisphere is unchanged. There is moderate atrophy. IMPRESSION: 1. No acute intracranial findings. 2. No change in appearance of the brain since MRI of November 23, 2021. Old left frontal lobe infarct. 3. No intracranial mass or pathologic enhancement. 4. Symmetric bilateral medial temporal lobe atrophy involving the hippocampi. ACT 112: Negative or not required by law. Electronically signed by: Rj Andrew M.D. 02/07/2022 8:43 AM
[2022-02-07] MEDS ORDERED: REMOVE RIVASTIGMINE PATCH SCH (08:59)
[2022-02-07] MEDS ORDERED: hydroCHLOROthiazide 25 MG TAB PO SCH (11:45)
[2022-02-07] MEDS ORDERED: LOSARTAN POTASSIUM 25 MG TAB PO SCH (14:00)
--- NOTE | 2022-02-07 16:16 | Communication Note ---
Date of Service: February 07, 2022 By CMS guidelines, a determination that the admission or continued stay is not medically necessary has been made by a member of the Utilization Review c ommittee and a physician for this hospital stay. Therefore, a Code 44 will be completed and the inpatient admission will be changed to outpatient. DO JAIR Hidalgo Physician member
--- NOTE | 2022-02-07 17:51 | Discharge Summary ---
Date of Service February 07, 2022 Admission HPI Per Admitting Provider History obtained from family and records. Unable to obtain history from patient secondary to obtunded state. 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 Patient is a resident of [place] who has been in town the last few months originally under the care of her sisters who live locally. Last confinement last week for recurrent falls. Patient discharged to [facility] rehab facility. Patient Carbidopa preparation change at rehab facility by provider for unclear reasons to family. Patient noted by family to have involuntary movements. Possible dyskinesias as per family. Concerns communicated to rehab facility providers 2 days ago. Patient back on previous carbidopa regimen. Yesterday, patient noted to be more confused than usual. Prolonged involuntary jerks as per family, possible seizures. Usual urinary incontinence. Patient brought to the ER for evaluation. Cefazolin given for left foot infection. 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 Admission Exam Per Admitting Provider Physical Exam: GENERAL: Obtunded, no respiratory distress SKIN: Pallor , warm HEENT: Pale palpebral conjunctivae, no ptosis, dry buccal mucosa NECK : Supple, no tenderness CHEST : CTA, no tenderness HEART : RRR, no obvious murmurs ABDOMEN: Some distention, nontender EXTREMITIES : Indurated left second toe with LLE swelling streaking, no overt tenderness, overlapping/underlapping toes both feet NEUROLOGIC : Obtunded, no facial asymmetry, gait and stance not assessed Principal Diagnosis Acute metabolic encephalopathy due to Parkinson's medicine, severe Parkinson disease with dyskinesia, hypertension, RAMONA, controlled asthma/COPD, type 2 diabetes Discharge Exam Lying in bed comfortably Constitutional well developed, well nourished, + ill appearing and + obese Eyes PERRL, conjunctivae normal, anicteric sclerae ENMT external ear and nose normal, oropharynx normal Neck trachea midline, no thyromegaly Respiratory no respiratory distress Auscultation: lungs clear to auscultation bilaterally and + diminished lung sounds Cardiovascular Rate/Rhythm: regular rate and regular rhythm; not tachycardic Heart Sounds: normal S1 and normal S2; no murmur Extremities: no edema Gastrointestinal (Abdomen) Inspection/Auscultation: normal bowel sounds; abdomen not distended Percussion/Palpation: abdomen soft; abdomen nontender Lymphatic no cervical or axillary lymphadenopathy Discharge Data Allergies Allergy/AdvReac Type Severity Reaction Status Date / Time fluconazole Allergy Severe hives,rash,respiratory Unverified 02/06/22 01:38 difficulty hydrochlorothiazide Allergy Severe Rash Unverified 02/06/22 01:38 triamterene Allergy Severe Rash Unverified 02/06/22 01:38 erythromycin base Allergy Intermediate n/a, rash Unverified 02/06/22 01:38 isosorbide Allergy Intermediate head Unverified 02/06/22 01:38 NSAIDS (Non-Steroidal Allergy Intermediate hives,rash Unverified 02/06/22 01:38 Anti-Inflamma amifostine Allergy Unknown Unverified 02/06/22 01:38 fluticasone Allergy Unknown Unverified 02/06/22 01:38 lisinopril Allergy Unknown Unverified 02/06/22 01:38 Penicillins Allergy Unknown Unverified 02/06/22 01:38 ethyl alcohol AdvReac Unknown Unverified 02/06/22 01:38 Consultations 02/06/22 00:19 ED Decision to Admit Stat 02/06/22 01:27 Consult Podiatry Routine 02/06/22 03:47 Consult Neurology Routine Ordered Studies 02/05/22 21:34 CT head/brain wo con Urgent 02/06/22 01:20 CT foot LT wo con Urgent 02/06/22 05:47 MRI Brain [MR brain seizure wo/w con] Routine Hospital Course (1) Encephalopathy: Metabolic encephalopathy likely secondary to medications for Parkinson's disease and is complicated by left toe cellulitis and also RAMONA hx Parkinson's disease with cognitive impairment, Doubt any postictal state Clinically much better this morning and has been conversing normally Does have minimal dyskinesia involving the upper extremities Has been eating and taking her medications To get back to [facility] today Discussed with the physician at [facility] the patient will be transferred back to [facility] this afternoon RAMONA Likely secondary to dehydration Appropriate to hold home losartan and home diuretic for now until creatinine back to baseline Received cautious amount of IV fluids Creatinine has been normalized Advised to drink more fluid hx CAD status post stent No cardiac symptoms and remains stable Asthma/COPD as per records No shortness of breath at rest and no wheezing DM2 on oral medications, well-controlled as of recent hemoglobin A1c of 7 last October 2021 We will continue current outpatient medications chronic anemia, hemoglobin at baseline past tobacco abuse. DVT prophylaxis per Lovenox subcu Full code as per sisters. Patient sisters requesting updates for providers. Ms. Itzel Oakes, contact #[phone]. Ms. Stover Genna, contact #[phone]. Like to be transferred to [facility] this afternoon (2) Parkinson's disease: With significant dyskinesia likely secondary to use of Sinemet EEG has been negative for any seizure activity Dyskinetic movement seems to be improving with decreasing Sinemet doses [facility] we will adjust her medication for Parkinson's disease as we discussed with the tracing lathe set up operator over the (3) Dyskinesia: As above (4) Hypertension: Will continue current medications on discharge (5) History of TIA (transient ischemic attack): No acute stroke and no recurrence of TIA (6) Cellulitis of second toe, left: No evidence of abscess and osteomyelitis Wound culture is growing staph species Awaiting sensitivity We will continue doxycycline for now Sensitivities still pending which will be conveyed to [facility] if anything otherwise (7) Hyperlipidemia: Continue statin Total Time Total Time Spent Total Time Spent (In Minutes): 45 minutes Discharge Plan Discharge Items Patient Disposition: Transfer Inpatient Rehab Fac Reason For Visit: ENCEPHALOPATHY Discharge Diagnosis: Acute metabolic encephalopathy due to Parkinson's medicine, severe Parkinson disease with dyskinesia, hypertension, RAMONA, controlled asthma/COPD, type 2 diabetes Condition on Discharge: Fair Activity: Resume your previous activity Non-emergency contact: Primary Care Provider Call non-emergency contact if: you have any medication questions and your symptoms worsen Follow-up/Referrals: Acacia Rice MD [Primary Care Provider] - (Please make an appointment within 7 days following discharge from the facility) Diet: Carb Consistent or DM2 Diet Texture: Easy to Chew Addtl Attending Provider Instructions: Please take precautions to avoid falls Take your medications specially for Parkinson disease as advised Finish the course of antibiotic Try to drink a little bit of more fluid to avoid dehydration Pending Studies at Discharge: No Stand-Alone Forms: [facility] Skilled Items Patient informed of condition?: Yes DNR: No Discharge Level of Care: Acute rehab Communicable Disease: No Discharge Prognosis: Stable Lines: None Urinary Catheter: Yes Medications and DC Order Prescriptions: New doxycycline hyclate 100 mg Capsule 100 mg PO BID 6 Days Qty: 12 0RF Continued acetaminophen [Tylenol] 325 mg Tablet 650 mg PO QID PRN (Reason: Pain) polyethylene glycol 3350 [Miralax] 17 gram Powder In Packet 17 g PO DAILY PRN (Reason: Constipation) Rx Instructions: LUNCH PRN atorvastatin 10 mg Tablet 10 mg PO HS ondansetron HCl 4 mg Tablet 4 mg PO Q4 PRN (Reason: .NAUSEA/VOMITING) sennosides-docusate sodium [Senokot-S] 8.6-50 mg Tablet 1 tab-cap PO DAILY PRN (Reason: Constipation) Rx Instructions: GIVE @ LUNCH lorazepam 0.5 mg Tablet 0.5 mg PO BID PRN (Reason: Anxiety) magnesium hydroxide [Milk of Magnesia] 400 mg/5 mL Suspension 30 ml PO DAILY PRN (Reason: Constipation) metformin 1,000 mg tablet 1,000 mg PO BID losartan 25 mg tablet 25 mg PO Q8 nitroglycerin [Nitrostat] 0.4 mg Tablet, Sublingual 0.5 mg sublingual .Q5MIN PRN (Reason: Chest Pain) docusate sodium 100 mg Capsule 100 mg PO DAILY albuterol sulfate 90 mcg/actuation HFA aerosol inhaler 2 puff INHALATION Q4 PRN (Reason: Shortness Of Breath Or Wheezing) heparin (porcine) 5,000 unit/mL Solution 5,000 unit SUBCUT Q8H duloxetine 30 mg capsule,delayed release(DR/EC) 30 mg PO Q12 Januvia 50 mg Tablet 100 mg PO DAILY rivastigmine 9.5 mg/24 hour patch 24 hour 1 patch topical .Q24HR Rx Instructions: REMOVE OLD PATH BEFORE REPLACING NEW ONE. Myrbetriq 25 mg Tablet Extended Release 24 Hr 50 mg PO DAILY Incruse Ellipta 62.5 mcg/actuation blister with device 1 inh INHALATION DAILY fluticasone furoate-vilanterol [Breo Ellipta] 200-25 mcg/dose Blister With Device 1 inh INHALATION DAILY cyanocobalamin (vitamin B-12) 2,500 mcg Tablet 2,500 mcg PO DAILY Ocular Lubricant 2 drp OPB BID PRN (Reason: Dry Eyes) glimepiride 1 mg Tablet 0.5 mg PO DAILY bisoprolol fumarate 5 mg Tablet 5 mg PO DAILY carbidopa-levodopa 25-100 mg tablet 1.5 tab PO TID carbidopa-levodopa 25-100 mg tablet 2 tab PO .QBREAKFAST hydrochlorothiazide 12.5 mg Tablet 6.25 mg PO DAILY Discharge Orders: Discharge Order (Routine); Ordered 02/07/22 Ordered By: Oriana Clark Admission Data Admit Date/Time: 02/06/22 01:23 Attending Provider: Oriana Clark Admit Provider: Toy Farmer Primary Care Provider: Acacia Rice Other Providers: Case Valencia ; Toy Farmer ; Roland Ascencio ; [facility] Other Interventions: Discharge Summary Assessment (RN) Last Done: 02/07/22 14:57
== END 2022-02-07 14:58 ==
LOC: ED 20:07 → INTOOBSV 02-06 01:23 → 2W 02-06 01:23
DX: Z79.84 Long term (current) use of oral hypoglycemic drugs; G20 Parkinson's disease; D64.9 Anemia, unspecified; J44.9 Chronic obstructive pulmonary disease, unspecified; Z88.8 Allergy status to other drugs, medicaments and biological substances; E11.9 Type 2 diabetes mellitus without complications; R41.82 Altered mental status, unspecified; Z88.0 Allergy status to penicillin; L03.032 Cellulitis of left toe; G93.41 Metabolic encephalopathy; Z86.73 Personal history of transient ischemic attack (TIA), and cerebral infarction without residual deficits; N17.9 Acute kidney failure, unspecified; Z87.891 Personal history of nicotine dependence; I25.10 Atherosclerotic heart disease of native coronary artery without angina pectoris; E78.5 Hyperlipidemia, unspecified; Z88.6 Allergy status to analgesic agent; Z88.1 Allergy status to other antibiotic agents; Z79.82 Long term (current) use of aspirin; Z79.899 Other long term (current) drug therapy

== ENCOUNTER 2022-06-14 19:58 | Inpatient (IN) ==
--- NOTE | 2022-06-14 21:04 | CT Scan Report ---
CT SCAN OF THE BRAIN WITHOUT IV CONTRAST CLINICAL HISTORY: Fall. Head injury. COMPARISON STUDY: CT of the brain dated 03/29/2022. TECHNIQUE: Unenhanced axial CT scan of the brain is performed from the vertex to the skull base. A do se lowering technique was utilized adhering to the principles of ALARA. CT DOSE: 990.03 mGy.cm FINDINGS: Brain parenchyma: A focus of left frontal encephalomalacia is consistent with a remote infarct. There is age-related involutional change noting moderate patchy subcortical and periventricular microangio pathic disease. There is no hemorrhage, mass effect, or evidence of acute territorial ischemia by CT criteria. De Jesus-white matter differentiation is preserved. No extra-axial fluid collection is seen. Ventricles, sulci, cisterns: Prominent secondary to involutional change. Intracranial vasculature: There is atherosclerotic calcification of the cavernous carotid and vertebr al arteries. Calvarium: The skeletal structures are osteopenic. No depressed calvarial fracture is seen. Soft tissues: There is a small left frontal scalp contusion. Sinuses and mastoids: The visualized paranasal sinuses are clear. The mastoid air cells are well pneu matized. Orbits: The bony orbits are grossly intact. There are bilateral ocular lens implants. IMPRESSION: There is no hemorrhage, mass effect, or evidence of acute territorial ischemia by CT [employer]. ACT 112: Negative or not required by law. Electronically signed by: Bal Bishop M.D. 06/14/2022 9:02 PM
--- NOTE | 2022-06-14 21:08 | CT Scan Report ---
CT SCAN OF THE CERVICAL SPINE CLINICAL HISTORY: Fall. COMPARISON STUDY: CT of the cervical spine dated 03/29/2022. TECHNIQUE: CT scan of the cervical spine is performed from the skull base to the upper thoracic spine . Images are reviewed in the axial, sagittal, and coronal planes. IV contrast was not administered fo r this examination. A dose lowering technique was utilized adhering to the principles of ALARA. FINDINGS: Skeletal structures: The skeletal structures are osteopenic. There is no evidence of fracture or subl uxation involving the cervical spine. Vertebral body height is maintained. There is minimal anterolis thesis at C3-C4, C4-C5, and C7-T1. There is straightening of the cervical lordosis with mild reversal centered at C4-C5. Anterior osteophytes are seen throughout. The odontoid process and lateral nafisa s are intact. The atlantoaxial articulation is preserved noting productive degenerative change. The s pinous processes appear intact. There is mild to moderate multilevel cervical spondylosis. Uncoverteb ral and facet arthropathy contribute to neural foraminal narrowing at several levels. Intervertebral discs: There is moderate to severe disc space narrowing at all cervical levels between C4-C5 and C7-T1. Central canal: Posterior disc osteophyte complexes at C4-C5, C5-C6, and C6-C7 may contribute to mild acquired compromise of the central canal. Soft tissues: The prevertebral and paraspinous soft tissues are within normal limits. The thyroid gla nd is enlarged and heterogeneous. Atherosclerotic calcification is noted in the carotid bulbs. Calvarium: The visualized calvarium at the skull base appears intact. Brain parenchyma: Partially visualized brain parenchyma at the skull base is within normal limits. Sinuses and mastoids: The visualized paranasal sinuses are clear. The mastoid air cells are well pneu matized. Lung apices: Clear as visualized. IMPRESSION: 1. There is no evidence of fracture or subluxation involving the cervical spine. 2. Osteopenia and spondylitic change as above. ACT 112: Negative or not required by law. Electronically signed by: Bal Bishop M.D. 06/14/2022 9:05 PM
--- NOTE | 2022-06-14 22:59 | Emergency Department Note ---
Impression & Plan Fall, Parkinson's disease, Ambulatory dysfunction, Weakness ED Provider Note Provider: Billy Mayfield MD DATE OF SERVICE: 06/14/2022 CHIEF COMPLAINT: Fall, weakness HISTORY OF PRESENT ILLNESS: Patient is a 82-year-old female history of Parkinson's disease, TIA, and type 2 diabetes presenting here via ambulance. Patient evidently was being assisted up from an arm chair normally ambulates w ith a walker. Was doing well last several days but more weak this evening. They helped her up and she all of a sudden got weak and fell backwards down to the floor and struck her head off the ground. No loss of conscious reported. Ambulance was called as she was unable to ambulate initially. Denies significant headache or dizziness. Denies abdominal pain or chest pain. Does report a slight pain to the left lateral hip as well as some slight pain earlier to the neck. No reported anticoagulation reported. PAST MEDICAL HISTORY: As noted above MEDICATIONS: Reviewed home medications. SOCIAL HISTORY: Resides at home with friends. Ambulates with walker. PHYSICAL EXAM: GENERAL: alert and oriented in no acute distress on stretcher Head: normocephalic and atraumatic EYES: No injection, discharge or icterus. PERRL, EOMI. NECK: Trachea midline. Supple without significant posterior midline tenderness. ENT: Mucous membranes pink and moist. Pharynx without erythema or exudate. LUNGS: Airway patent. No retractions. Breath sounds clear with good air entry bilaterally. HEART: Regular rate and rhythm. No chest wall tenderness ABDOMEN: Soft and non-tender, without guarding or rebound. BACK: No midline tenderness, no SI joint tenderness. No bilateral flank tenderness. SKIN: Acyanotic, warm, dry, without rashes EXTREMITIES: Without swelling, tenderness or deformity except for NEUROLOGICAL: No aphasia. No facial droop or slurred speech. Normal strength and tone in the extremities. Sensation to gross touch normal. Muscle rigidity particular the lower extremities. EK bpm normal sinus rhythm. No PVC or PAC. Some lateral T wave flattening but no acute ST segment elevation or depression. QTc 408. CONTINUOUS CARDIAC MONITORING: was ordered and showed a heart rate of 60s-70s bpm in normal sinus rhythm 1 view chest x-ray per my interpretation: No evidence of pneumothorax, pneumonia, or pleural effusion. No obvious free air under the diaphragm or bony abnormality. 1 view pelvis x-ray per my interpretation evidence of some slight arthritic changes without obvious hip or large pelvic fracture. Some overlying bowel gas/stool. GCS 15. Patient's laboratory studies and imaging reviewed. Differential includes traumatic injury, infection, dehydration, metabolic abn ormality, hypo/hyperglycemia, electrolyte disturbance, anemia, hypoxia, cardiac sources, intracerebral event/neurologic, as well as other pathologies. IMPRESSION/MEDICAL DECISION MAKING: Patient and friends report the patient is more weak. Able to assist her but quite significant assistance to stand on evaluation. CT head and cervical spine per radiology report without significant traumatic injury noted. Denies significant thoracic chest pain or abdominal pain. Reports a little bit of sli ght pain to the left lateral hip. Denies significant pain to the upper extremities or left lower extremity. Reports some slight discomfort to the right knee and there is a slight amount of noted contusion here but no obvious dislocation. No fibular head tenderness. No significant joint line tenderness. Basic labs will be obtained as well as EKG given her ambulatory dysfunction. No significant anemia or leukocytosis. No significant renal dysfunction or evidence of electrolyte abnormality. COVID-negative. Patient has significant fall risk. Normally ambulates with a walker but he requires significant assistance even to stand with my help. Chest x-ray and pelvis x-ray per my review and radiology report without significant abnormality. Discussed with patient and friends that would recommend she stay for further evaluation given this given her increased fall risk and her deterioration. Do not see significant focal deficit low suspicion for CVA at this time. Did order dose of home Sinemet. DIAGNOSIS: Ambulatory dysfunction, fall, weakness, Parkinson's disease DISPOSITION: Hospitalist will evaluate Patient was agreeable with this plan. Past Med/Surg History Medical History Anxiety Asthma CAD (coronary artery disease) COPD (chronic obstructive pulmonary disease) COVID-19 Delirium Diabetes mellitus, type II Generalized weakness GERD (gastroesophageal reflux disease) History of TIA (transient ischemic attack) Hyperlipidemia Hypertension Multiple fractures of ribs of left side Parkinson's disease Transient confusion Surgical History Hx of appendectomy S/P cholecystectomy Stented coronary artery Family History Other Diabetes Heart disease Hypertension Social History Smoking Status: Former smoker Tobacco Type: Cigarettes Hx Alcohol Use: No (pt unable to provide information) Hx Substance Use: No (pt unable to provide information) Preferred Language: Uzbek Communication Ability: Impaired Summer Babysitter Required: No Beliefs That Will Affect Care: None marital status: Single Current Living Situation: Rehab Current Living Situation Comment: lives with sisters current occupational status: retired 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[place], [place] How many Children do You have: 0 Feels Safe at Home: Yes Assistive Devices: Cane and Walker Allergies Allergies Allergy/AdvReac Type Severity Reaction Status Date / Time fluconazole Allergy Severe hives,rash,respiratory Unverified 02/06/22 01:38 difficulty hydrochlorothiazide Allergy Severe Rash Unverified 02/06/22 01:38 triamterene Allergy Severe Rash Unverified 02/06/22 01:38 erythromycin base Allergy Intermediate n/a, rash Unverified 02/06/22 01:38 isosorbide Allergy Intermediate head Unverified 02/06/22 01:38 NSAIDS (Non-Steroidal Allergy Intermediate hives,rash Unverified 02/06/22 01:38 Anti-Inflamma amifostine Allergy Unknown Unverified 02/06/22 01:38 fluticasone Allergy Unknown Unverified 02/06/22 01:38 lisinopril Allergy Unknown Unverified 02/06/22 01:38 Penicillins Allergy Unknown Unverified 02/06/22 01:38 ethyl alcohol AdvReac Unknown Unverified 02/06/22 01:38 Home Meds Home Medications Medication Instructions Recorded Confirmed Ocular Lubricant 2 drp OPB BID PRN Dry Eyes 02/06/22 02/06/22 acetaminophen 325 mg tablet 650 mg PO QID PRN Pain 02/06/22 02/06/22 (Tylenol) albuterol sulfate 90 mcg/actuation 2 puff inhalation Q4 PRN Shortness 02/06/22 02/06/22 aerosol inhaler Of Breath Or Wheezing atorvastatin 10 mg tablet 10 mg PO HS 02/06/22 02/06/22 bisoprolol fumarate 5 mg tablet 5 mg PO DAILY 02/06/22 02/06/22 carbidopa 25 mg-levodopa 100 mg 1.5 tab PO TID 02/06/22 02/06/22 tablet carbidopa 25 mg-levodopa 100 mg 2 tab PO .QBREAKFAST 02/06/22 02/06/22 tablet cyanocobalamin (vitamin B-12) 2,500 mcg PO DAILY 02/06/22 02/06/22 2,500 mcg tablet docusate sodium 100 mg capsule 100 mg PO DAILY 02/06/22 02/06/22 duloxetine 30 mg capsule,delayed 30 mg PO Q12 02/06/22 02/06/22 release fluticasone furoate 200 1 inh inhalation DAILY 02/06/22 02/06/22 mcg-vilanterol 25 mcg/dose inhalation powder (Breo Ellipta) glimepiride 1 mg tablet 0.5 mg PO DAILY 02/06/22 02/06/22 heparin (porcine) 5,000 unit/mL 5,000 unit subcut Q8H 02/06/22 02/06/22 injection solution hydrochlorothiazide 12.5 mg tablet 6.25 mg PO DAILY 02/06/22 02/06/22 lorazepam 0.5 mg tablet 0.5 mg PO BID PRN Anxiety 02/06/22 02/06/22 losartan 25 mg tablet 25 mg PO Q8 02/06/22 02/06/22 magnesium hydroxide 400 mg/5 mL 30 ml PO DAILY PRN Constipation 02/06/22 02/06/22 oral suspension (Milk of Magnesia) metformin 1,000 mg tablet 1,000 mg PO BID 02/06/22 02/06/22 mirabegron 25 mg tablet,extended 50 mg PO DAILY 02/06/22 02/06/22 release 24 hr (Myrbetriq) nitroglycerin 0.4 mg sublingual 0.5 mg sublingual .Q5MIN PRN Chest 02/06/22 02/06/22 tablet (Nitrostat) Pain ondansetron HCl 4 mg tablet 4 mg PO Q4 PRN .NAUSEA/VOMITING 02/06/22 02/06/22 polyethylene glycol 3350 17 gram 17 g PO DAILY PRN Constipation 02/06/22 02/06/22 oral powder packet (Miralax) rivastigmine 9.5 mg/24 hour 1 patch topical .Q24HR 02/06/22 02/06/22 transdermal patch sennosides 8.6 mg-docusate sodium 1 tab-cap PO DAILY PRN Constipation 02/06/22 02/06/22 50 mg tablet (Senokot-S) sitagliptin phosphate 50 mg tablet 100 mg PO DAILY 02/06/22 02/06/22 (Januvia) umeclidinium 62.5 mcg/actuation 1 inh inhalation DAILY 02/06/22 02/06/22 blister powder for inhalation (Incruse Ellipta) Results & Data (ED) Vital Signs Vital Signs - 24 hr 06/14/22 19:57 Temperature 36.3 C L Temperature Source Temporal Artery Scan Pulse Rate 69 Respiratory Rate 16 Respiratory Effort / Characteristics Non-Labored Spontaneous Respiratory Depth Normal Blood Pressure 173/88 H Blood Pressure Mean 116 Blood Pressure Position Sitting Pulse Oximetry 98 Oxygen Delivery Method Room Air Sepsis Recent Fever Within 48 Hours No Sepsis New/Unexplained Change in Mental Status N/A Sepsis Action Taken by Nursing No Action Required Laboratory Data 06/14/22 23:30 06/14/22 23:30 Lab Results 06/14/22 06/14/22 06/14/22 Range/Units 23:30 23:30 23:30 WBC 6.56 (4.8-10.8) K/ul RBC 4.02 L (4.20-5.40) M/uL Hgb 11.8 L (12.0-16.0) g/dl Hct 36.5 L (37.0-47.0) % MCV 90.8 (80.0-100.0) fL MCH 29.4 (25.0-34.0) pg MCHC 32.3 (32.0-36.0) g/dL RDW Std Deviation 45.3 (36.4-46.3) fL RDW Coeff of Jayden 13.5 (11.5-14.5) % Plt Count 293 (130-400) K/uL MPV 9.4 (9.4-12.4) fL Immature Gran % (Auto) 0.2 % Neut % (Auto) 65.9 % Lymph % (Auto) 22.7 % [place] % (Auto) 8.8 % Eos % (Auto) 2.1 % Baso % (Auto) 0.3 % Neut # (Auto) 4.32 (1.40-6.50) K/uL Lymph # (Auto) 1.49 (1.2-3.4) K/uL [place] # (Auto) 0.58 (0.11-0.59) K/uL Eos # (Auto) 0.14 (0-0.50) K/uL Baso # (Auto) 0.02 (0-0.2) K/uL Immature Gran # (Auto) 0.01 (0.01-0.20) K/uL Sodium 138 (136-145) mmol/L Potassium 4.3 (3.5-5.1) mmol/L Chloride 106 (98-107) mmol/L Carbon Dioxide 29 (21-32) mmol/L Anion Gap 3 (3-11) BUN 20 (6-23) mg/dl Creatinine 0.88 (0.6-1.2) mg/dl Est Cr Clr Drug Dosing Not Reportable Est GFR ( Amer) 71.4 ml/min Est GFR (Non-Af Amer) 61.6 ml/min BUN/Creatinine Ratio 22.7 H (10-20) Glucose 136 H (70-99(Fasting)) mg/dl Calcium 9.4 (8.5-10.1) mg/dl Total Bilirubin 0.6 (0.2-1.0) mg/dl AST 16 (13-39) U/L ALT 12 (7-52) U/L Alkaline Phosphatase 71 (34-104) U/L Troponin I High Sens 6.3 (0-14) pg/ml Total Protein 6.4 (6.0-8.3) gm/dl Albumin 4.0 (3.4-5.0) gm/dl Globulin 2.4 L (2.5-4.0) gm/dl Albumin/Globulin Ratio 1.7 (0.9-2) TSH 0.273 L (0.300-4.500) uIu/ml Free T4 0.92 (0.61-1.60) ng/dl SARS-CoV-2, RNA, NAAT (NEGATIVE) 06/14/22 Range/Units 23:30 WBC (4.8-10.8) K/ul RBC (4.20-5.40) M/uL Hgb (12.0-16.0) g/dl Hct (37.0-47.0) % MCV (80.0-100.0) fL MCH (25.0-34.0) pg MCHC (32.0-36.0) g/dL RDW Std Deviation (36.4-46.3) fL RDW Coeff of Jayden (11.5-14.5) % Plt Count (130-400) K/uL MPV (9.4-12.4) fL Immature Gran % (Auto) % Neut % (Auto) % Lymph % (Auto) % [place] % (Auto) % Eos % (Auto) % Baso % (Auto) % Neut # (Auto) (1.40-6.50) K/uL Lymph # (Auto) (1.2-3.4) K/uL [place] # (Auto) (0.11-0.59) K/uL Eos # (Auto) (0-0.50) K/uL Baso # (Auto) (0-0.2) K/uL Immature Gran # (Auto) (0.01-0.20) K/uL Sodium (136-145) mmol/L Potassium (3.5-5.1) mmol/L Chloride (98-107) mmol/L Carbon Dioxide (21-32) mmol/L Anion Gap (3-11) BUN (6-23) mg/dl Creatinine (0.6-1.2) mg/dl Est Cr Clr Drug Dosing Est GFR ( Amer) ml/min Est GFR (Non-Af Amer) ml/min BUN/Creatinine Ratio (10-20) Glucose (70-99(Fasting)) mg/dl Calcium (8.5-10.1) mg/dl Total Bilirubin (0.2-1.0) mg/dl AST (13-39) U/L ALT (7-52) U/L Alkaline Phosphatase (34-104) U/L Troponin I High Sens (0-14) pg/ml Total Protein (6.0-8.3) gm/dl Albumin (3.4-5.0) gm/dl Globulin (2.5-4.0) gm/dl Albumin/Globulin Ratio (0.9-2) TSH (0.300-4.500) uIu/ml Free T4 (0.61-1.60) ng/dl SARS-CoV-2, RNA, NAAT NEGATIVE (NEGATIVE) Imaging Data Radiologist's Impression: Cervical Spine CT 06/14/22 20:03 CT SCAN OF THE CERVICAL SPINE CLINICAL HISTORY: Fall. COMPARISON STUDY: CT of the cervical spine dated 03/29/2022. TECHNIQUE: CT scan of the cervical spine is performed from the skull base to the upper thoracic spine. Images are reviewed in the axial, sagittal, and coronal planes. IV contrast was not administered for this examination. A dose lowering technique was utilized adhering to the principles of ALARA. FINDINGS: Skeletal structures: The skeletal structures are osteopenic. There is no evidence of fracture or subluxation involving the cervical spine. Vertebral body height is maintained. There is minimal anterolisthesis at C3-C4, C4-C5, and C7- T1. There is straightening of the cervical lordosis with mild reversal centered at C4-C5. Anterior osteophytes are seen throughout. The odontoid process and lateral masses are intact. The atlantoaxial articulation is preserved noting productive degenerative change. The spinous processes appear intact. There is mild to moderate multilevel cervical spondylosis. Uncovertebral and facet arthropathy contribute to neural foraminal narrowing at several levels. Intervertebral discs: There is moderate to severe disc space narrowing at all cervical levels between C4-C5 and C7-T1. Central canal: Posterior disc osteophyte complexes at C4-C5, C5-C6, and C6-C7 may contribute to mild acquired compromise of the central canal. Soft tissues: The prevertebral and paraspinous soft tissues are within normal limits. The thyroid gland is enlarged and heterogeneous. Atherosclerotic calcification is noted in the carotid bulbs. Calvarium: The visualized calvarium at the skull base appears intact. Brain parenchyma: Partially visualized brain parenchyma at the skull base is within normal limits. Sinuses and mastoids: The visualized paranasal sinuses are clear. The mastoid air cells are well pneumatized. Lung apices: Clear as visualized. IMPRESSION: 1. There is no evidence of fracture or subluxation involving the cervical spine. 2. Osteopenia and spondylitic change as above. ACT 112: Negative or not required by law. Electronically signed by: Bal Bishop M.D. 06/14/2022 9:[address] 06/14/22 20:03 CT SCAN OF THE BRAIN WITHOUT IV CONTRAST CLINICAL HISTORY: Fall. Head injury. COMPARISON STUDY: CT of the brain dated 03/29/2022. TECHNIQUE: Unenhanced axial CT scan of the brain is performed from the vertex to the skull base. A dose lowering technique was utilized adhering to the principles of ALARA. CT DOSE: 990.03 mGy.cm FINDINGS: Brain parenchyma: A focus of left frontal encephalomalacia is consistent with a remote infarct. There is age-related involutional change noting moderate patchy subcortical and periventricular microangiopathic disease. There is no hemor rhage, mass effect, or evidence of acute territorial ischemia by CT criteria. De Jesus-white matter differentiation is preserved. No extra-axial fluid collection is seen. Ventricles, sulci, cisterns: Prominent secondary to involutional change. Intracranial vasculature: There is atherosclerotic calcification of the cavernous carotid and vertebral arteries. Calvarium: The skeletal structures are osteopenic. No depressed calvarial fracture is seen. Soft tissues: There is a small left frontal scalp contusion. Sinuses and mastoids: The visualized paranasal sinuses are clear. The mastoid air cells are well pneumatized. Orbits: The bony orbits are grossly intact. There are bilateral ocular lens implants. IMPRESSION: There is no hemorrhage, mass effect, or evidence of acute territorial ischemia by CT criteria. ACT 112: Negative or not required by law. Electronically signed by: Bal Bishop M.D. 06/14/2022 9:02 PM Chest X-Ray 06/14/22 23:02 SINGLE VIEW CHEST CLINICAL HISTORY: Fall. FINDINGS: An AP, portable, upright chest radiograph is compared to study dated 02/06/2022 and correlated with chest CT dated 03/29/2022. The examination is degraded by portable technique and apical lordotic positioning. The heart is enlarged noting atherosclerotic calcification of the thoracic aorta. The pulmonary vasculature is noncongested. Emphysema and chronic interstitial thickening is similar to previous. No airspace consolidation or large pleural effusion is identified. Scarring/atelectasis is noted at the lung bases. No pneumothorax is seen. The skeletal structures are osteopenic. There is calcific tendinopathy in the right shoulder. Cholecystectomy clips are seen in the right upper quadrant. IMPRESSION: Cardiomegaly and emphysema with no acute cardiopulmonary abnormality identified. ACT 112: Negative or not required by law. Electronically signed by: Bal Bishop M.D. 06/14/2022 11:56 PM Pelvis X-Ray 06/14/22 23:02 SINGLE VIEW PELVIS CLINICAL HISTORY: Fall. FINDINGS: An AP, portable, supine view of the pelvis is compared to study dated 12/14/2019. The skeletal structures are osteopenic. There is no radiographic evidence of acute fracture involving the hips or pelvis. Moderate degenerative joint space narrowing is seen in the hips. There is degenerative sclerosis of the sacroiliac joints. Lumbosacral spondylosis is partially visualized. Enthesophytes arise from the anterior superior iliac spines. The overlying soft tissues are within normal limits. There is no bowel obstruction. IMPRESSION: No acute bony abnormality is identified. Electronically signed by: Bal Bishop M.D. 06/14/2022 11:57 PM Discharge Plan Visit Data Chief Complaint: Fall Stated Complaint: Fall Posterior head pain ED Provider: Billy Mayfield Discharge Problem: Fall, Parkinson's disease, Ambulatory dysfunction, Weakness Patient Disposition: Being Evaluated by Hospitalist Forms Stand Alone Forms: [facility] Prescriptions Prescriptions: No Action acetaminophen [Tylenol] 325 mg Tablet 650 mg PO QID PRN (Reason: Pain) polyethylene glycol 3350 [Miralax] 17 gram Powder In Packet 17 g PO DAILY PRN (Reason: Constipation) Rx Instructions: LUNCH PRN atorvastatin 10 mg Tablet 10 mg PO HS ondansetron HCl 4 mg Tablet 4 mg PO Q4 PRN (Reason: .NAUSEA/VOMITING) sennosides-docusate sodium [Senokot-S] 8.6-50 mg Tablet 1 tab-cap PO DAILY PRN (Reason: Constipation) Rx Instructions: GIVE @ LUNCH lorazepam 0.5 mg Tablet 0.5 mg PO BID PRN (Reason: Anxiety) magnesium hydroxide [Milk of Magnesia] 400 mg/5 mL Suspension 30 ml PO DAILY PRN (Reason: Constipation) metformin 1,000 mg tablet 1,000 mg PO BID losartan 25 mg tablet 25 mg PO Q8 nitroglycerin [Nitrostat] 0.4 mg Tablet, Sublingual 0.5 mg sublingual .Q5MIN PRN (Reason: Chest Pain) docusate sodium 100 mg Capsule 100 mg PO DAILY albuterol sulfate 90 mcg/actuation HFA aerosol inhaler 2 puff INHALATION Q4 PRN (Reason: Shortness Of Breath Or Wheezing) heparin (porcine) 5,000 unit/mL Solution 5,000 unit SUBCUT Q8H duloxetine 30 mg capsule,delayed release(DR/EC) 30 mg PO Q12 Apruvia 50 mg Tablet 100 mg PO DAILY rivastigmine 9.5 mg/24 hour patch 24 hour 1 patch topical .Q24HR Rx Instructions: REMOVE OLD PATH BEFORE REPLACING NEW ONE. Myrbetriq 25 mg Tablet Extended Release 24 Hr 50 mg PO DAILY Incruse Ellipta 62.5 mcg/actuation blister with device 1 inh INHALATION DAILY fluticasone furoate-vilanterol [Breo Ellipta] 200-25 mcg/dose Blister With Device 1 inh INHALATION DAILY cyanocobalamin (vitamin B-12) 2,500 mcg Tablet 2,500 mcg PO DAILY Ocular Lubricant 2 drp OPB BID PRN (Reason: Dry Eyes) glimepiride 1 mg Tablet 0.5 mg PO DAILY bisoprolol fumarate 5 mg Tablet 5 mg PO DAILY carbidopa-levodopa 25-100 mg tablet 1.5 tab PO TID carbidopa-levodopa 25-100 mg tablet 2 tab PO .QBREAKFAST hydrochlorothiazide 12.5 mg Tablet 6.25 mg PO DAILY Referrals Referrals: Acacia Rice MD [Primary Care Provider] -
--- NOTE | 2022-06-14 23:58 | XRay Report ---
SINGLE VIEW CHEST CLINICAL HISTORY: Fall. FINDINGS: An AP, portable, upright chest radiograph is compared to study dated 02/06/2022 and correla brayan with chest CT dated 03/29/2022. The examination is degraded by portable technique and apical lordo tic positioning. The heart is enlarged noting atherosclerotic calcification of the thoracic aorta. Th e pulmonary vasculature is noncongested. Emphysema and chronic interstitial thickening is similar to previous. No airspace consolidation or large pleural effusion is identified. Scarring/atelectasis is noted at the lung bases. No pneumothorax is seen. The skeletal structures are osteopenic. There is ca lcific tendinopathy in the right shoulder. Cholecystectomy clips are seen in the right upper quadrant . IMPRESSION: Cardiomegaly and emphysema with no acute cardiopulmonary abnormality identified. ACT 112: Negative or not required by law. Electronically signed by: Bal Bishop M.D. 06/14/2022 11:56 PM
--- NOTE | 2022-06-14 23:58 | XRay Report ---
SINGLE VIEW PELVIS CLINICAL HISTORY: Fall. FINDINGS: An AP, portable, supine view of the pelvis is compared to study dated 12/14/2019. The skelet al structures are osteopenic. There is no radiographic evidence of acute fracture involving the hips or pelvis. Moderate degenerative joint space narrowing is seen in the hips. There is degenerative scl erosis of the sacroiliac joints. Lumbosacral spondylosis is partially visualized. Enthesophytes arise from the anterior superior iliac spines. The overlying soft tissues are within normal limits. There is no bowel obstruction. IMPRESSION: No acute bony abnormality is identified. Electronically signed by: Bal Bishop M.D. 06/14/2022 11:57 PM
[2022-06-15 00:10] LABS: Basophils # (auto) 0.02 K/uL (0-0.2); Basophils % (auto) 0.3 %; Eosinophils # (auto) 0.14 K/uL (0-0.50); Eosinophils % (auto) 2.1 %; Hematocrit (blood only) 36.5 % (37.0-47.0); Hemoglobin 11.8 g/dl (12.0-16.0); Immature Granulocytes # (auto) 0.01 K/uL (0.01-0.20); Immature Granulocytes % (auto) 0.2 %; Lymphocytes # (auto) 1.49 K/uL (1.2-3.4); Lymphocytes % (auto) 22.7 %; Mean Corpuscular Hemoglobin 29.4 pg (25.0-34.0); Mean Corpuscular Hgb Conc 32.3 g/dL (32.0-36.0); Mean Corpuscular Volume 90.8 fL (80.0-100.0); Mean Platelet Volume 9.4 fL (9.4-12.4); Monocytes # (auto) 0.58 K/uL (0.11-0.59); Monocytes % (auto) 8.8 %; Neutrophils # (auto) 4.32 K/uL (1.40-6.50); Neutrophils % (auto) 65.9 %; Platelet Count 293 K/uL (130-400); RDW Coefficient of Variation 13.5 % (11.5-14.5); RDW Standard Deviation 45.3 fL (36.4-46.3); Red Blood Count 4.02 M/uL (4.20-5.40); White Blood Count 6.56 K/ul (4.8-10.8)
[2022-06-15 00:14] LABS: Alanine Aminotransferase 12 U/L (7-52); Albumin Globulin Ratio 1.7 (0.9-2); Alkaline Phosphatase 71 U/L (34-104); Anion Gap 3 (3-11); Aspartate Aminotransferase 16 U/L (13-39); BUN Creatinine Ratio 22.7 (10-20); Bilirubin,Total 0.6 mg/dl (0.2-1.0); Blood Urea Nitrogen 20 mg/dl (6-23); Calcium 9.4 mg/dl (8.5-10.1); Carbon Dioxide 29 mmol/L (21-32); Chloride 106 mmol/L (98-107); Est GFR (African American) 71.4 ml/min; Est GFR (Non-African American) 61.6 ml/min; Globulin 2.4 gm/dl (2.5-4.0); Glucose 136 mg/dl (70-99(Fasting)); Potassium 4.3 mmol/L (3.5-5.1); Sodium 138 mmol/L (136-145); Total Protein 6.4 gm/dl (6.0-8.3)
[2022-06-15 00:20] LABS: Troponin I High Sensitivity 6.3 pg/ml (0-14)
[2022-06-15 00:29] LABS: Thyroid Stimulating Hormone 0.273 uIu/ml (0.300-4.500)
[2022-06-15] MEDS ORDERED: CARBIDOPA/LEVODOPA 25/100MG TAB PO STA (00:39)
[2022-06-15 01:07] LABS: T4 Free Thyroxine 0.92 ng/dl (0.61-1.60)
[2022-06-15] MEDS ORDERED: GLUCOSE 10 TAB/TUBE PO PRN (02:49)
[2022-06-15] MEDS ORDERED: ACETAMINOPHEN 325 MG TAB PO PRN (02:49)
[2022-06-15] MEDS ORDERED: POLYETHYLENE (MIRALAX) 17 GM PACK PO PRN (02:49)
[2022-06-15] MEDS ORDERED: DEXTROSE 50% 50 ML SYRINGE IV PRN (02:49)
[2022-06-15] MEDS ORDERED: SODIUM CHLORIDE 0.9% 1000ML 1,000 ML IV SCH (02:49)
[2022-06-15] MEDS ORDERED: GLUCOSE 40% GEL 15 GM TUBE PO PRN (02:49)
[2022-06-15] MEDS ORDERED: ALBUTEROL HFA 8 GM INHALER INH PRN (02:49)
[2022-06-15] MEDS ORDERED: CARBOHYDRATES FOR HYPOGLYCEMIA PO PRN (02:49)
[2022-06-15] MEDS ORDERED: GLUCAGON FOR INJ 1 MG VIAL SQ PRN (02:49)
[2022-06-15] MEDS ORDERED: MAGNESIUM HYDROXIDE SUSP 30 ML UDC PO PRN (02:49)
[2022-06-15] MEDS ORDERED: hydrALAZINE HCL 20 MG/ML VIAL IV ONE (03:34)
[2022-06-15] MEDS ORDERED: ARTIFICIAL TEARS OP PRN (04:07)
--- NOTE | 2022-06-15 05:16 | History and Physical Report ---
DATE OF ADMISSION: 06/15/2022. CHIEF COMPLAINT: Fall and ambulatory dysfunction. 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 The patient lives with her sister. She ambulates with a walker. She was trying to get up from the chair, she was wobbly, she turned around. Sister felt she was losing balance, she tried to help her, but both of them fell down and the patient hit the back of the head. She could not get up, ambulance was called in, and brought in here. Imaging studies are unremarkable. Currently, resting comfortably, hemodynamically stable. She has some headaches. She has some on and off chest pain, but currently no chest pain. No shortness of breath. She complains of some left-sided abdominal pain. Again, no shortness of breath. She is saturating okay on room air. No blurred visions. Has chronic runny nose and some sore throat and cough. Afebrile. Appetite is okay. She can swallow okay. Normal bowel and bladder movements. ALLERGIES: FLUCONAZOLE, HYDROCHLOROTHIAZIDE/TRIAMTERENE, ERYTHROMYCIN BASE, ISOSORBIDE, NSAIDS, AMIFOSTINE, FLUTICASONE, LISINOPRIL, PENICILLIN, ETHYL ALCOHOL. PAST MEDICAL HISTORY: As mentioned above. PAST SURGICAL HISTORY: Tonsillectomy and adenoidectomy, cataract surgeries, cholecystectomy, cervical colposcopy, vulvar biopsy. FAMILY HISTORY: Significant for ovarian cancer, pancreatic cancer, DVT, heart disease, diabetes, dementia. SOCIAL HISTORY: Past tobacco abuse. No alcohol use. 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 MEDICATIONS: The patient is on Tylenol p.r.n., albuterol 2 puffs inhalation q. 4 hours p.r.n., bisoprolol fumarate 5 mg p.o. daily, budesonide/formoterol 1 puff inhalation b.i.d., carbidopa/levodopa 1.5 tablets p.o. t.i.d., vitamin B12 2500 mcg p.o. daily, Colace 100 mg p.o. daily, duloxetine 30 mg p.o. b.i.d., glimepiride 0.5 mg p.o. daily, hydrochlorothiazide 6.25 mg p.o. daily, Incruse Ellipta 1 inhalation daily, Januvia 100 mg p.o. daily, losartan 25 mg p.o. q. 8 hours, milk of magnesia 30 mL p.o. daily p.r.n., metformin 1000 mg p.o. b.i.d., Myrbetriq 50 mg p.o. daily, Nitrostat 0.4 mg sublingual p.r.n., MiraLax 17 g p.o. daily p.r.n., rivastigmine 1 patch topical 24 hours, rosuvastatin 5 mg p.o. at bedtime. REVIEW OF SYSTEMS: As per HPI. Rest of the review of systems is negative. PHYSICAL EXAMINATION: GENERAL: The patient is of moderate built, not in acute distress. VITAL SIGNS: Temperature 36.3, pulse 69, respiratory rate 16, blood pressure 173/88, oxygen 98% on room air. HEENT: Pupils equal, round, and reactive to light. Oral mucosa moist. NECK: No JVD. No neck masses. CARDIOVASCULAR: S1 and S2 heard. Regular rate and rhythm. No murmur, no gallop. RESPIRATORY SYSTEM: Normal AP diameter. No accessory muscle use. No wheezing, no crackles. ABDOMEN: Soft, bowel sounds present, nontender, no distention. CENTRAL NERVOUS SYSTEM: Alert and awake. Speech is clear. No facial droop. Obeys simple commands. Moves extremities. EXTREMITIES: No obvious edema or erythema seen. LABORATORY DATA: WBC 6.5, hemoglobin 11.8, hematocrit 36.5, platelets 293. Sodium 138, potassium 4.3, chloride 106, bicarbonate 29, BUN 20, creatinine 0.8, serum glucose 136, calcium 9.4, total bilirubin 0.6, AST 16, ALT 12, alkaline phosphatase 71. Troponin I high sensitivity 6.3. TSH 0.2, free T4 0.9. SARS-CoV-2 rapid test negative. IMAGING DATA: Pelvis x-ray, no acute findings. Chest x-ray, cardiomegaly and emphysema with no acute findings. CT of the head without contrast, no acute findings. Cervical spine CT, no acute findings. EKG: Normal sinus rhythm at a rate of 61. Nonspecific ST abnormalities. No significant change was found. ASSESSMENT AND PLAN: This is an 82-year-old female with history of Parkinson disease, currently living at sister's place,presents with fall and ambulatory dysfunction. 1. Fall, ambulatory dysfunction, Parkinson's disease: Imaging studies are okay. Most likely secondary to her Parkinson disease. Will monitor in the hospital. PT/OT. Social service to help with discharge planning. 2. History of diabetes: Hold her home medications. Placed on insulin sliding scale, and Lantus 5 units daily. Monitor the blood sugars. Monitor the HbA1c level. 3. History of cerebrovascular accident, history of transient ischemic attack: Currently on statin and aspirin. 4. Parkinson's disease: Continue her home medications. 5. dementia due to Parkinson disease : On Exelon patch. 6. Asthma and chronic obstructive pulmonary disease: Continue her home inhalers. 7. History of coronary artery disease: Seems stable. 8. Chronic anemia: Hemoglobin stable at 11.8. 9. Deep venous thrombosis prophylaxis: Heparin subcutaneously. DISPOSITION: Monitor in the medical floor. PT/OT. Social service to help with discharge planning. Level 1 full code as per my discussion with the sister. Job ID: [id number] MTDD
[2022-06-15] MEDS: LOSARTAN POTASSIUM 25 MG TAB PO SCH ×3 (05:40→21:20)
[2022-06-15 07:55] LABS: Basophils # (auto) 0.02 K/uL (0-0.2); Basophils % (auto) 0.3 %; Eosinophils # (auto) 0.17 K/uL (0-0.50); Eosinophils % (auto) 2.3 %; Hematocrit (blood only) 37.6 % (37.0-47.0); Immature Granulocytes # (auto) 0.02 K/uL (0.01-0.20); Immature Granulocytes % (auto) 0.3 %; Lymphocytes # (auto) 1.97 K/uL (1.2-3.4); Lymphocytes % (auto) 26.5 %; Mean Corpuscular Hemoglobin 29.2 pg (25.0-34.0); Mean Corpuscular Hgb Conc 31.9 g/dL (32.0-36.0); Mean Corpuscular Volume 91.5 fL (80.0-100.0); Mean Platelet Volume 9.4 fL (9.4-12.4); Monocytes % (auto) 9.4 %; Neutrophils # (auto) 4.55 K/uL (1.40-6.50); Neutrophils % (auto) 61.2 %; Platelet Count 277 K/uL (130-400); RDW Coefficient of Variation 13.7 % (11.5-14.5); RDW Standard Deviation 45.7 fL (36.4-46.3); Red Blood Count 4.11 M/uL (4.20-5.40); White Blood Count 7.43 K/ul (4.8-10.8)
[2022-06-15 08:13] LABS: BUN Creatinine Ratio 20.7 (10-20); Calcium 9.4 mg/dl (8.5-10.1); Creatinine Clr Calc Pharmacy 53.2 ml/min; Est GFR (African American) 77.8 ml/min; Est GFR (Non-African American) 67.1 ml/min; Potassium 4.1 mmol/L (3.5-5.1)
[2022-06-15] MEDS: CYANOCOBALAMIN (B-12) 2,500 MCG TABLET SL SCH (08:27)
[2022-06-15] MEDS: hydroCHLOROthiazide 25 MG TAB PO SCH (08:27)
[2022-06-15] MEDS: ASPIRIN 81 MG ECTAB PO SCH (08:27)
[2022-06-15] MEDS: BISOPROLOL FUMARATE 5 MG TAB PO SCH (08:27)
[2022-06-15] MEDS: DOCUSATE SODIUM 100 MG CAP PO SCH (08:27)
[2022-06-15] MEDS: CARBIDOPA/LEVODOPA 25/100MG TAB PO SCH ×3 (08:27→20:35)
[2022-06-15] MEDS: DULoxetine HCL 30 MG CAP PO SCH ×2 (08:27→20:35)
[2022-06-15] MEDS: HEPARIN SOD 5,000 UNIT/0.5 ML VIAL SQ SCH ×2 (08:28→20:36)
[2022-06-15] MEDS: MIRABEGRON ER 25 MG TAB PO SCH (08:28)
[2022-06-15] MEDS: UMECLIDINIUM BROMIDE 62.5MCG/BLISTER 7 PUFFS/INHALER INH SCH (08:28)
[2022-06-15] MEDS: FLUTICASONE/VILANTEROL 200/25MCG 14 PUFFS/INHALER INH SCH (08:28)
[2022-06-15] MEDS: INSULIN ASPART PER UNIT SC SCH ×4 (08:52→20:50)
[2022-06-15] MEDS: LANTUS PER UNIT CHARGE SQ SCH (08:53)
[2022-06-15 09:26] LABS: Estimated Average Glucose 154 mg/dl
--- NOTE | 2022-06-15 11:24 | Electrocardiogram Report ---
Test Reason : Blood Pressure : / mmHG Vent. Rate : 061 BPM Atrial Rate : 061 BPM P-R Int : 116 ms QRS Dur : 088 ms QT Int : 412 ms P-R-T Axes : 055 026 036 degrees QTc Int : 414 ms Poor data quality, interpretation may be adversely affected Normal sinus rhythm Nonspecific ST and T wave abnormality Abnormal ECG When compared with ECG of 29-MAR-2022 12:57, Nonspecific T wave abnormality now evident in Anterior leads Confirmed by Miguel Franz ([id number]) on 06/15/2022 11:23:40 AM Referred By: REFERRED SELF Confirmed By:Miguel Franz
--- NOTE | 2022-06-15 14:07 | Hospitalist Progress Note ---
Date of Service June 15, 2022 Assessment & Plan (1) Fall: (2) Ambulatory dysfunction: Plan 82-year-old lady with PMH of dementia, Parkinson's disease, TIAs, T2DM, HLD, asthma COPD overlap syndrome, HTN, CAD, GERD presented to the ED 06/14 with complaint of fall. At baseline, she ambulates with a walker. When she was trying to get up from the chair, still lost balance and fell down; her sister was able to assist but still the patient ended up falling/ hitting the back of h er head. She could not get up and ambulance was called in. She is being managed for the following: Fall, ambulatory dysfunction, in the setting of Parkinson's disease: Patient presents with mechanical fall, admitting imagings [C-spine CT, head CT, chest x- ray, pelvic x-ray] with no new acute findings. Admitting labs fairly WNL. Ortho vitals positive. PT/OT, continue with gentle IV fluid. Other vitals repeat in AM. CM to assist with DC planning. Other chronic medical conditions: Diabeteshold home medication, sliding scale while in hospital. A1c of 7.0 this admission. CVA/TIAcontinue with home statin and aspirin Parkinson's diseasecontinue home medications Dementia due to Parkinson diseaseon Exelon patch Asthma and COPD -continue home medications Chronic anemiastable DVT prophylaxis: Subcutaneous heparin Full code Dispo: PT/OT JEN zheng to assist with DC planning. Admission and Anticipated Discharge Date Admission Date: June 15, 2022 Subjective Patient seen and examined at bedside as a follow-up of fall and ambulatory dysfunction in the setting of Parkinson's disease. Patient was sitting up in chair, on room air, NAD, alert and oriented to place and , pleasantly confused, reports very little pain at her lower back, ROS not able due to cognition status. Physical Exam 2 Physical Exam: GENERAL: Alert and awake. NAD, on RA. Appears chronically ill/frail. HEENT: No pallor, no icterus. Pupils equal, round and reactive to light. Oral mucosa moist. NECK: No JVD, no neck masses. HEART: S1 and S2 heard. Regular rate and rhythm. No murmur, no gallop. RESPIRATORY SYSTEM: Normal AP diameter. No accessory muscle use. No wheezing, no crackles. ABDOMEN: Soft, bowel sounds present, nontender, no distention. CENTRAL NERVOUS SYSTEM: No facial droop. Speech is clear. Obeys simple commands. Moves extremities. EXTREMITIES: No edema, no erythema seen. Results & Data Results & Data ([facility]) Vital Signs (Past 12 Hours) Vital Signs Temp Pulse Resp BP BP Pulse Ox O2 Del Method 06/15/22 13:12 72 18 98 Room Air 06/15/22 09:59 Room Air 06/15/22 09:21 71 121/71 06/15/22 09:20 71 146/70 H 06/15/22 09:20 69 132/63 06/15/22 07:01 36.4 C L 68 16 147/80 H 98 Room Air 06/15/22 05:36 61 138/65 06/15/22 04:22 123/71 06/15/22 02:25 Room Air 06/15/22 02:25 36.3 C L 71 18 180/76 H 97 Room Air (1) Fall Encounter type: initial encounter Qualified Code(s): W19.XXXA - Unspecified fall, initial encounter
[2022-06-15] MEDS: ROSUVASTATIN CALCIUM 5 MG TAB PO SCH (20:35)
[2022-06-16] MEDS: LOSARTAN POTASSIUM 25 MG TAB PO SCH ×3 (05:42→21:01)
[2022-06-16 06:44] LABS: Hematocrit (blood only) 35.5 % (37.0-47.0); Hemoglobin 11.5 g/dl (12.0-16.0); Mean Corpuscular Hemoglobin 29.2 pg (25.0-34.0); Mean Corpuscular Hgb Conc 32.4 g/dL (32.0-36.0); Mean Corpuscular Volume 90.1 fL (80.0-100.0); Mean Platelet Volume 9.6 fL (9.4-12.4); Platelet Count 274 K/uL (130-400); RDW Coefficient of Variation 13.6 % (11.5-14.5); RDW Standard Deviation 44.9 fL (36.4-46.3); Red Blood Count 3.94 M/uL (4.20-5.40); White Blood Count 5.45 K/ul (4.8-10.8)
[2022-06-16 06:52] LABS: BUN Creatinine Ratio 21.9 (10-20); Calcium 9.3 mg/dl (8.5-10.1); Creatinine Clr Calc Pharmacy 59.8 ml/min; Est GFR (African American) 89.5 ml/min; Est GFR (Non-African American) 77.2 ml/min; Phosphorus 3.7 mg/dl (2.5-4.9)
[2022-06-16] MEDS: CARBIDOPA/LEVODOPA 25/100MG TAB PO SCH ×3 (07:41→20:31)
[2022-06-16] MEDS: DULoxetine HCL 30 MG CAP PO SCH ×2 (07:41→20:30)
[2022-06-16] MEDS: hydroCHLOROthiazide 25 MG TAB PO SCH (07:42)
[2022-06-16] MEDS: ASPIRIN 81 MG ECTAB PO SCH (07:43)
[2022-06-16] MEDS: DOCUSATE SODIUM 100 MG CAP PO SCH (07:44)
[2022-06-16] MEDS: FLUTICASONE/VILANTEROL 200/25MCG 14 PUFFS/INHALER INH SCH (07:44)
[2022-06-16] MEDS: CYANOCOBALAMIN (B-12) 2,500 MCG TABLET SL SCH (07:44)
[2022-06-16] MEDS: BISOPROLOL FUMARATE 5 MG TAB PO SCH (07:44)
[2022-06-16] MEDS: MIRABEGRON ER 25 MG TAB PO SCH (07:44)
[2022-06-16] MEDS: UMECLIDINIUM BROMIDE 62.5MCG/BLISTER 7 PUFFS/INHALER INH SCH (07:45)
[2022-06-16] MEDS: HEPARIN SOD 5,000 UNIT/0.5 ML VIAL SQ SCH ×2 (07:45→20:33)
[2022-06-16] MEDS: INSULIN ASPART PER UNIT SC SCH ×4 (08:40→22:00)
[2022-06-16] MEDS: LANTUS PER UNIT CHARGE SQ SCH (08:40)
--- NOTE | 2022-06-16 16:50 | Hospitalist Progress Note ---
Date of Service June 16, 2022 Assessment & Plan (1) Fall: (2) Ambulatory dysfunction: Plan 82-year-old lady with PMH of dementia, Parkinson's disease, TIAs, T2DM, HLD, asthma COPD overlap syndrome, HTN, CAD, GERD presented to the ED 06/14 with complaint of fall. At baseline, she ambulates with a walker. When she was trying to get up from the chair, still lost balance and fell down; her sister was able to assist but still the patient ended up falling/ hitting the back of h er head. She could not get up and ambulance was called in. She is being managed for the following: Fall, ambulatory dysfunction, in the setting of Parkinson's disease: Patient presents with mechanical fall, admitting imagings [C-spine CT, head CT, chest x- ray, pelvic x-ray] with no new acute findings. Admitting labs fairly WNL. Ortho vitals positive. PT/OT. CM to assist with DC planning. BP fairly high measured prior to julio bp meds. will need to wear compression stockings and do slow transition to mitigate the effects of orthostasis. Other chronic medical conditions: Diabeteshold home medication, sliding scale while in hospital. A1c of 7.0 this admission. CVA/TIAcontinue with home statin and aspirin Parkinson's diseasecontinue home medications Dementia due to Parkinson diseaseon Exelon patch Asthma and COPD -continue home medications Chronic anemiastable DVT prophylaxis: Subcutaneous heparin Full code Dispo: PT/OT JEN zheng to assist with DC planning. Fam would like to take her home toña. Admission and Anticipated Discharge Date Admission Date: June 15, 2022 Subjective Patient seen and examined at bedside as a follow-up of fall and ambulatory dysfunction in the setting of Parkinson's disease. Patient was sitting up in bed, on room air, NAD, pleasantly confused, reports very little pain at her lower back, will use tylenol, ROS not able due to cognition status. Physical Exam Physical Exam: GENERAL: Alert and awake. NAD, on RA. Appears chronically ill/frail. HEENT: No pallor, no icterus. Pupils equal, round and reactive to light. Oral mucosa moist. NECK: No JVD, no neck masses. HEART: S1 and S2 heard. Regular rate and rhythm. No murmur, no gallop. RESPIRATORY SYSTEM: Normal AP diameter. No accessory muscle use. No wheezing, no crackles. ABDOMEN: Soft, bowel sounds present, nontender, no distention. CENTRAL NERVOUS SYSTEM: No facial droop. Speech is clear. Obeys simple commands. Moves extremities. EXTREMITIES: No edema, no erythema seen. Results & Data Results & Data ([facility]) Vital Signs (Past 12 Hours) Vital Signs Temp Pulse Resp BP BP Pulse Ox O2 Del Method 06/16/22 15:10 36.4 C L 69 16 122/64 94 Room Air 06/16/22 09:23 66 18 125/64 96 Room Air 06/16/22 08:00 Room Air 06/16/22 07:00 60 190/80 H 06/16/22 05:39 60 18 186/79 H 96 Room Air (1) Fall Encounter type: initial encounter Qualified Code(s): W19.XXXA - Unspecified fall, initial encounter
[2022-06-16] MEDS: ROSUVASTATIN CALCIUM 5 MG TAB PO SCH (20:30)
[2022-06-17] MEDS: LOSARTAN POTASSIUM 25 MG TAB PO SCH (05:57)
[2022-06-17] MEDS: CARBIDOPA/LEVODOPA 25/100MG TAB PO SCH (08:41)
[2022-06-17] MEDS: DOCUSATE SODIUM 100 MG CAP PO SCH (08:41)
[2022-06-17] MEDS: DULoxetine HCL 30 MG CAP PO SCH (08:41)
[2022-06-17] MEDS: ASPIRIN 81 MG ECTAB PO SCH (08:42)
[2022-06-17] MEDS: MIRABEGRON ER 25 MG TAB PO SCH (08:42)
[2022-06-17] MEDS: CYANOCOBALAMIN (B-12) 2,500 MCG TABLET SL SCH (08:42)
[2022-06-17] MEDS: BISOPROLOL FUMARATE 5 MG TAB PO SCH (08:43)
[2022-06-17] MEDS: hydroCHLOROthiazide 25 MG TAB PO SCH (08:43)
[2022-06-17] MEDS: FLUTICASONE/VILANTEROL 200/25MCG 14 PUFFS/INHALER INH SCH (08:44)
[2022-06-17] MEDS: UMECLIDINIUM BROMIDE 62.5MCG/BLISTER 7 PUFFS/INHALER INH SCH (08:44)
[2022-06-17] MEDS: HEPARIN SOD 5,000 UNIT/0.5 ML VIAL SQ SCH (08:46)
[2022-06-17] MEDS: LANTUS PER UNIT CHARGE SQ SCH (08:53)
[2022-06-17] MEDS: INSULIN ASPART PER UNIT SC SCH ×2 (08:53→12:25)
--- NOTE | 2022-06-17 11:55 | Discharge Summary ---
Date of Service June 17, 2022 Admission HPI Per Admitting Provider DATE OF ADMISSION: 06/15/2022. CHIEF COMPLAINT: Fall and ambulatory dysfunction. 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 The patient lives with her sister. She ambulates with a walker. She was trying to get up from the chair, she was wobbly, she turned around. Sister felt she was losing balance, she tried to help her, but both of them fell down and the patient hit the back of the head. She could not get up, ambulance was called in, and brought in here. Imaging studies are unremarkable. Currently, resting comfortably, hemodynamically stable. She has some headaches. She has some on and off chest pain, but currently no chest pain. No shortness of breath. She complains of some left-sided abdominal pain. Again, no shortness of breath. She is saturating okay on room air. No blurred visions. Has chronic runny nose and some sore throat and cough. Afebrile. Appetite is okay. She can swallow okay. Normal bowel and bladder movements. ALLERGIES: FLUCONAZOLE, HYDROCHLOROTHIAZIDE/TRIAMTERENE, ERYTHROMYCIN BASE, ISOSORBIDE, NSAIDS, AMIFOSTINE, FLUTICASONE, LISINOPRIL, PENICILLIN, ETHYL ALCOHOL. PAST MEDICAL HISTORY: As mentioned above. PAST SURGICAL HISTORY: Tonsillectomy and adenoidectomy, cataract surgeries, cholecystectomy, cervical colposcopy, vulvar biopsy. FAMILY HISTORY: Significant for ovarian cancer, pancreatic cancer, DVT, heart disease, diabetes, dementia. SOCIAL HISTORY: Past tobacco abuse. No alcohol use. 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 MEDICATIONS: The patient is on Tylenol p.r.n., albuterol 2 puffs inhalation q. 4 hours p.r.n., bisoprolol fumarate 5 mg p.o. daily, budesonide/formoterol 1 puff inhalation b.i.d., carbidopa/levodopa 1.5 tablets p.o. t.i.d., vitamin B12 2500 mcg p.o. daily, Colace 100 mg p.o. daily, duloxetine 30 mg p.o. b.i.d., glimepiride 0.5 mg p.o. daily, hydrochlorothiazide 6.25 mg p.o. daily, Incruse Ellipta 1 inhalation daily, Januvia 100 mg p.o. daily, losartan 25 mg p.o. q. 8 hours, milk of magnesia 30 mL p.o. daily p.r.n., metformin 1000 mg p.o. b.i.d., Myrbetriq 50 mg p.o. daily, Nitrostat 0.4 mg sublingual p.r.n., MiraLax 17 g p.o. daily p.r.n., rivastigmine 1 patch topical 24 hours, rosuvastatin 5 mg p.o. at bedtime. REVIEW OF SYSTEMS: As per HPI. Rest of the review of systems is negative. Admission Exam Per Admitting Provider GENERAL: The patient is of moderate built, not in acute distress. VITAL SIGNS: Temperature 36.3, pulse 69, respiratory rate 16, blood pressure 173/88, oxygen 98% on room air. HEENT: Pupils equal, round, and reactive to light. Oral mucosa moist. NECK: No JVD. No neck masses. CARDIOVASCULAR: S1 and S2 heard. Regular rate and rhythm. No murmur, no gallop. RESPIRATORY SYSTEM: Normal AP diameter. No accessory muscle use. No wheezing, no crackles. ABDOMEN: Soft, bowel sounds present, nontender, no distention. CENTRAL NERVOUS SYSTEM: Alert and awake. Speech is clear. No facial droop. Obeys simple commands. Moves extremities. EXTREMITIES: No obvious edema or erythema seen. Principal Diagnosis Fall Orthostatic hypotension Hypertension Discharge Exam GENERAL: Alert and awake. NAD, on RA. Appears chronically ill/frail. HEENT: No pallor, no icterus. Pupils equal, round and reactive to light. Oral mucosa moist. NECK: No JVD, no neck masses. HEART: S1 and S2 heard. Regular rate and rhythm. No murmur, no gallop. RESPIRATORY SYSTEM: Normal AP diameter. No accessory muscle use. No wheezing, no crackles. ABDOMEN: Soft, bowel sounds present, nontender, no distention. CENTRAL NERVOUS SYSTEM: No facial droop. Speech is clear. Obeys simple commands. Moves extremities. EXTREMITIES: No edema, no erythema seen. Discharge Data Allergies Allergy/AdvReac Type Severity Reaction Status Date / Time fluconazole Allergy Severe hives,rash,respiratory Unverified 02/06/22 01:38 difficulty hydrochlorothiazide Allergy Severe Rash Unverified 02/06/22 01:38 triamterene Allergy Severe Rash Unverified 02/06/22 01:38 erythromycin base Allergy Intermediate n/a, rash Unverified 02/06/22 01:38 isosorbide Allergy Intermediate head Unverified 02/06/22 01:38 NSAIDS (Non-Steroidal Allergy Intermediate hives,rash Unverified 02/06/22 01:38 Anti-Inflamma amifostine Allergy Unknown Unverified 02/06/22 01:38 fluticasone Allergy Unknown Unverified 02/06/22 01:38 lisinopril Allergy Unknown Unverified 02/06/22 01:38 Penicillins Allergy Unknown Unverified 02/06/22 01:38 ethyl alcohol AdvReac Unknown Unverified 02/06/22 01:38 Consultations 06/15/22 00:11 ED Decision to Admit Stat Ordered Studies 06/14/22 20:03 CT cervical spine wo con Stat CT head/brain wo con Stat Hospital Course (1) Fall: (2) Ambulatory dysfunction: Plan 82-year-old lady with PMH of dementia, Parkinson's disease, TIAs, T2DM, HLD, asthma COPD overlap syndrome, HTN, CAD, GERD presented to the ED 06/14 with complaint of fall. At baseline, she ambulates with a walker. When she was trying to get up from the chair, still lost balance and fell down; her sister was able to assist but still the patient ended up falling/ hitting the back of her head. She could not get up and ambulance was called in. She was managed for the following: Fall, ambulatory dysfunction, in the setting of Parkinson's disease: Patient presents with mechanical fall, admitting imagings [C-spine CT, head CT, chest x- ray, pelvic x-ray] with no new acute findings. Admitting labs fairly WNL. Ortho vitals positive. PT/OT recommends HH. CM to assist with DC planning. BP fairly high measured prior to julio bp meds. will need to continue home bp meds. will need to wear compression stockings and do slow transition to mitigate the effects of orthostasis. Pt's family aware. They plan to take her home w/ HH and they plan to increase caregiver time at home. Other chronic medical conditions: Diabeteshold home medication, sliding scale while in hospital. A1c of 7.0 this admission. On prior meds on DC. CVA/TIAcontinue with home statin and aspirin Parkinson's diseasecontinue home medications Dementia due to Parkinson diseaseon Exelon patch Asthma and COPD -continue home medications Chronic anemiastable DVT prophylaxis: Subcutaneous heparin Full code Dispo: PT/OT JEN zheng to assist with DC planning. Fam would like to take her home toña. Patient being discharged to home with home health with following instruction at the point of discharge: Follow-up with your primary care physician within 1 week time and likely you will need labs CBC/CMP/magnesium/phosphorus. For your orthostatic hypotension, maintain slow transition between changing positions from lying to sitting and sitting to standing. You can also use compression stockings during the day to help mitigate the effect of orthostasis. Fall precaution advised. You can take over the counter tylenol for pain. Take your medications as prior. Home Health Attestation I certify that this patient is under my care and that I, or a physicians golf player assistant working with me, had a face to-face encounter that meets the home health [id number] encounter requirements with this patient. The encounter with the patient was in whole, or in part, for the following medical condition, which is the primary reason for home health care (list medical condition): I certify that, based on my findings, the following services are medically necessary home health services: My clinical findings support the need for the above services because: Further, I certify that my clinical findings support that this patient is homebound (i.e. absences from home require considerable and taxing effort and are for medical reasons or mormonism services or infrequently or of short duration when for other reasons) because: Certification for Home Health Services: Based on the above findings, I certify that this patient is confined to the home and needs intermittent senior living care, physical therapy and/or speech therapy or continues to need occupational therapy. The patient is under my care, and I have initiated the establishment of the plan of care. This patient will be followed by a physician who will periodically review the plan of care. Total Time Total Time Spent Total Time Spent (In Minutes): 45 Discharge Plan Discharge Items Patient Disposition: Home - Home Health Services Reason For Visit: FALL Discharge Diagnosis: Fall Orthostatic hypotension Hypertension Activity: As commented below Activity Comment: Slow transition between changing positions. Non-emergency contact: Primary Care Provider Call non-emergency contact if: you have any medication questions, your symptoms worsen and your temperature is above 101 Follow-up/Referrals: Acacia Rice MD [Primary Care Provider] - Diet: Carb Consistent or DM2 Diet Texture: Easy to Chew Addtl Attending Provider Instructions: Follow-up with your primary care physician within 1 week time and likely you will need labs CBC/CMP/magnesium/phosphorus. For your orthostatic hypotension, maintain slow transition between changing positions from lying to sitting and sitting to standing. You can also use compression stockings during the day to help mitigate the effect of orthostasis. Fall precaution advised. You can take over the counter tylenol for pain. Take your medications as prior. Pending Studies at Discharge: No Stand-Alone Forms: My [facility] Info[employer], Smoking Cessation Medications and DC Order Prescriptions: Continued rosuvastatin 5 mg tablet 5 mg PO HS budesonide-formoterol 160-4.5 mcg/actuation HFA aerosol inhaler 1 puff INHALATION BID aspirin [Aspirin Low-Strength] 81 mg Tablet,Delayed Release (Dr/Ec) 81 mg PO DAILY acetaminophen [Tylenol] 325 mg Tablet 650 mg PO QID PRN (Reason: Pain) polyethylene glycol 3350 [Miralax] 17 gram Powder In Packet 17 g PO DAILY PRN (Reason: Constipation) Rx Instructions: LUNCH PRN sennosides-docusate sodium [Senokot-S] 8.6-50 mg Tablet 1 tab-cap PO DAILY PRN (Reason: Constipation) Rx Instructions: GIVE @ LUNCH magnesium hydroxide [Milk of Magnesia] 400 mg/5 mL Suspension 30 ml PO DAILY PRN (Reason: Constipation) metformin 1,000 mg tablet 1,000 mg PO BID losartan 25 mg tablet 25 mg PO Q8 nitroglycerin [Nitrostat] 0.4 mg Tablet, Sublingual 0.5 mg sublingual .Q5MIN PRN (Reason: Chest Pain) docusate sodium 100 mg Capsule 100 mg PO DAILY albuterol sulfate 90 mcg/actuation HFA aerosol inhaler 2 puff INHALATION Q4 PRN (Reason: Shortness Of Breath Or Wheezing) duloxetine 30 mg capsule,delayed release(DR/EC) 30 mg PO Q12 Januvia 50 mg Tablet 100 mg PO DAILY rivastigmine 9.5 mg/24 hour patch 24 hour 1 patch topical .Q24HR Rx Instructions: REMOVE OLD PATH BEFORE REPLACING NEW ONE. Myrbetriq 25 mg Tablet Extended Release 24 Hr 50 mg PO DAILY Incruse Ellipta 62.5 mcg/actuation blister with device 1 inh INHALATION DAILY cyanocobalamin (vitamin B-12) 2,500 mcg Tablet 2,500 mcg PO DAILY Ocular Lubricant 2 drp OPB BID PRN (Reason: Dry Eyes) glimepiride 1 mg Tablet 0.5 mg PO DAILY bisoprolol fumarate 5 mg Tablet 5 mg PO DAILY carbidopa-levodopa 25-100 mg tablet 1.5 tab PO TID hydrochlorothiazide 12.5 mg Tablet 6.25 mg PO DAILY Discharge Orders: Discharge Order (Routine); Ordered 06/17/22 Ordered By: Ryana Agee/Other Patient Handouts: Managing Type 2 Diabetes Admission Data Admit Date/Time: 06/15/22 01:18 Attending Provider: Rayna Loyd Admit Provider: Karl Mackey Primary Care Provider: Acacia Rice Other Providers: Karl Mackey
== END 2022-06-17 13:56 | disposition home health service (06) | DRG 57 ==
LOC: ED 19:58 → 3W 06-15 01:18

== ENCOUNTER 2022-07-19 12:59 | Inpatient (IN) ==
[2022-07-19] MEDS ORDERED: ACETAMINOPHEN 1,000 MG/100 ML VIAL IV STA (13:44)
[2022-07-19] MEDS ORDERED: SODIUM CHLORIDE 0.9% 1000ML 1,000 ML IV SCH (13:45)
[2022-07-19 14:17] LABS: Basophils # (auto) 0.02 K/uL (0-0.2); Basophils % (auto) 0.2 %; Eosinophils % (auto) 1.1 %; Hematocrit (blood only) 34.8 % (37.0-47.0); Hemoglobin 11.4 g/dl (12.0-16.0); Immature Granulocytes # (auto) 0.02 K/uL (0.01-0.20); Immature Granulocytes % (auto) 0.2 %; Lymphocytes % (auto) 18.4 %; Mean Corpuscular Hgb Conc 32.8 g/dL (32.0-36.0); Mean Corpuscular Volume 88.5 fL (80.0-100.0); Mean Platelet Volume 9.4 fL (9.4-12.4); Monocytes # (auto) 1.11 K/uL (0.11-0.59); Neutrophils # (auto) 6.31 K/uL (1.40-6.50); Neutrophils % (auto) 68.1 %; Platelet Count 289 K/uL (130-400); RDW Coefficient of Variation 14.6 % (11.5-14.5); RDW Standard Deviation 47.5 fL (36.4-46.3); Red Blood Count 3.93 M/uL (4.20-5.40); White Blood Count 9.26 K/ul (4.8-10.8)
--- NOTE | 2022-07-19 14:19 | XRay Report ---
XR chest 1V portable HISTORY: Sepsis COMPARISON: Chest 06/14/2022. FINDINGS: The lungs are clear. Cardiac silhouette is normal in size. No pleural effusions. No pneumot horax. IMPRESSION: No acute process. ACT 112: Negative or not required by law. Electronically signed by: Fermin Chavarria M.D. 07/19/2022 2:17 PM
[2022-07-19 14:22] LABS: Alanine Aminotransferase 8 U/L (7-52); Albumin Level 3.8 gm/dl (3.4-5.0); Alkaline Phosphatase 59 U/L (34-104); Anion Gap 6 (3-11); Aspartate Aminotransferase 15 U/L (13-39); BUN Creatinine Ratio 22.3 (10-20); Bilirubin Direct 0.1 mg/dl (0-0.2); Bilirubin,Total 0.6 mg/dl (0.2-1.0); Blood Urea Nitrogen 23 mg/dl (6-23); Calcium 9.3 mg/dl (8.6-10.3); Carbon Dioxide 27 mmol/L (21-32); Chloride 105 mmol/L (98-107); Est GFR (Non-African American) 50.9 ml/min; Glucose 126 mg/dl (70-99(Fasting)); Potassium 4.3 mmol/L (3.5-5.1); Sodium 138 mmol/L (136-145); Total Protein 6.5 gm/dl (6.0-8.3)
--- NOTE | 2022-07-19 14:23 | CT Scan Report ---
CT OF THE HEAD WITHOUT CONTRAST CLINICAL HISTORY: Altered mental status. COMPARISON STUDY: MRI of the brain February 06, 2022. Head CT June 14, 2022. CT DOSE: 614.27 mGy.cm TECHNIQUE: Helical axial images of the head were obtained without IV contrast. Automated exposure con trol was utilized for the study. A dose lowering technique was utilized adhering to the principles o f ALARA. FINDINGS: No acute intracranial hemorrhage, midline shift or mass effect is present. 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 White matter hypodensity suggests small vessel disease. There has been no change in appearance of the brain. The ventricular system is unremarkable. The basal cisterns are patent. No extra-axial collections are present. There are no findings to suggest acute dural sinus th rombosis or acute territorial infarct. No significant calvarial abnormalities are present. Visualized portions of the sinuses and mastoid air cells are clear. IMPRESSION: No acute intracranial findings. No change in appearance of the brain. ACT 112: Negative or not required by law. Electronically signed by: Rj Andrew M.D. 07/19/2022 2:22 PM
[2022-07-19 14:29] LABS: Troponin I High Sensitivity 4.3 pg/ml (0-14)
--- NOTE | 2022-07-19 14:34 | XRay Report ---
XR foot LT 2V CLINICAL HISTORY: wound infection TECHNIQUE: 2 views of the left foot were obtained. Comparison: Comparison is made to left foot CT 02/06/2022 FINDINGS: No evidence of bony erosion is seen. Hallux valgus and osteoarthritic changes are seen. Plantar enthe sophyte is noted. No soft tissue abnormality is seen. IMPRESSION: No evidence of bony erosion is radiographically evident. Of note, MRI is a more sensitive modality. ACT 112: Negative or not required by law. Electronically signed by: Teddy Oakes M.D. 07/19/2022 2:32 PM
[2022-07-19] MEDS ORDERED: DOXYCYCLINE HYCLATE 100 MG CAP PO STA (14:50)
[2022-07-19] MEDS ORDERED: cefTRIAXone SODIUM 1,000 MG in DEXTROSE 5% AD-VAN 50 ML IV STA (14:50)
[2022-07-19 14:58] LABS: Influenza A virus by PCR Negative (Neg); Influenza B virus by PCR Negative (Neg); RSV by PCR Negative (Neg); SARS CoV2 RNA(COVID-19) Ceph NEGATIVE (Negative)
--- NOTE | 2022-07-19 15:48 | Emergency Department Note ---
Impression & Plan AMS (altered mental status), Generalized weakness, Cellulitis of left foot ED Provider Note ED Provider Note NAME: AISHA BENITEZ AGE:82 SEX: Female : 1940 ARRIVES VIA: EMS INFORMANT: Patient, family ED PROVIDER(s): Annmarie Calderon DO CHIEF COMPLAINT: Altered mental status, weakness, dysarthria, left foot infection HPI: This is an 82-year-old female who presents emergency department with sisters at bedside who provide most of the history due to concern for altered mental status, weakness, dysarthria, and worsening left foot infection. Family at bedside states she just finished antibiotics for a similar infection 3 days ago and then it began to worsen again. They state over the last 2 days she has had dysarthria, decreased appetite, increased weakness and were unable to walk with her walker. They initially thought perhaps this was the effects of the antibiotics on her system especially in light of her Parkinson's disease, however the symptoms persisted. They states she does have good and bad days with her Parkinson's disease. They states she was taking Bactrim for the infection and that Dr. Stover had previously performed a culture of the wound. With the change in speech they were concerned for possible stroke as she has had one previously. PAST MEDICAL HISTORY:See Below PAST SURGICAL HISTORY:See Below FAMILY HISTORY:See Below SOCIAL HISTORY:See Below HOME MEDICATIONS:See Below ALLERGIES:See Below VITALS:See Below PHYSICAL EXAMINATION: GENERAL: alert, well appearing, well nourished, no distress, non-toxic EYE EXAM: normal conjunctiva, PERRL and EOM's grossly intact OROPHARYNX: no exudate, no erythema, lips, buccal mucosa, and tongue normal and mucous membranes are moist NECK: supple, no nuchal rigidity, no adenopathy, non-tender LUNGS: Clear to auscultation. Normal chest wall mechanics, no w/r/r HEART: no murmurs, S1 normal and S2 normal ABDOMEN: abdomen soft, non-tender, normo-active bowel sounds, no masses, no rebound or guarding. BACK: Back is symmetrical on inspection and there is no deformity, no midline tenderness, no CVA tenderness. SKIN: no rashes, petechiae, orbruising UPPER EXTREMITIES: upper extremities are grossly normal. FROM, nml pulses b/l. LOWER EXTREMITIES: nml pulses b/l, chronic appearing deformities of the toes, w orse on the right; left foot edematous and erythematous dorsal>plantar with drainage noted from small ulcerative wound between the 1st and 2nd toes - culture obtained at bedside, mild erythema streaking superiorly into distal LLE; nml cap refill; no evidence of trauma or infection at right foot. NEURO EXAM: Pleasantly confused, cranial nerves II-XII grossly intact, normal speech, no facial droop,nogross weakness of arms, no gross weakness of legs. Gross sensation intact. No ataxia. Vital Signs: reviewed and remarkable Differential Diagnosis: Differential diagnoses includes but is not limited to toxic, metabolic, infectious, traumatic, cardiac, neurologic, hematologic, psychiatric and inflammatory etiologies. MEDICAL DECISION MAKING: This is an 82 yo female who presents with family due to concern for AMS, weakness, decreased appetite, and possible recurrent foot infection. Obvious worsening wound with ascending cellulitis noted on exam to left foot. Labs drawn and sent, culture obtained by me, IV established, EKG performed and interpreted by me at bedside, xr performed and interpreted by me at bedside, patient started on IVF and IV antibiotics. Labs reassuring despite exam. CT head due to AMS was reassuring, I feel occult CVA less likely given infection. Concern given appropriate antibiotics based on outpatient culture which was reviewed and quick recurrence once antibiotics finished for more severe infection. Due to accompanying symptoms of AMS and weakness to the point of not eating and being unable to walk, we discussed additional inpatient treatment which her sisters/cargivers were in agreement with. CAse discussed with hospitalist team. Consultation(s): 1600: Discussed with Scarlett Reeves hospitalist team. ER Treatment Provided: See below Diagnostics Interpreted By Me: -ECG: Normal sinus at 67, normal axis, normal QRS and QTc, no acute ST/T wave changes -Cardiac Monitoring: An order was placed for continuous cardiac monitoring. The monitor shows a rate of 66 with normal sinus rhythm. -Laboratory studies: As stated above and show below. -Imaging studies: xr left foot: No obvious fracture or dislocation, no obvious bony erosions Triage Nursing Note Reviewed Prior/Outside Records Reviewed - PCP office visit and outpatient wound culture Past Med/Surg History Medical History (Updated 07/19/22 @ 19:33 by Nani Luciano PA-C) Anxiety Asthma CAD (coronary artery disease) COPD (chronic obstructive pulmonary disease) COVID-19 Delirium Dementia Diabetes mellitus, type II Generalized weakness GERD (gastroesophageal reflux disease) History of TIA (transient ischemic attack) Hyperlipidemia Hypertension Multiple fractures of ribs of left side Parkinson's disease Transient confusion Surgical History Hx of appendectomy S/P cholecystectomy Stented coronary artery Family History Other Diabetes Heart disease Hypertension Social History Smoking Status: Former smoker Tobacco Type: Cigarettes Cigarettes Per Day: 1 pack/day; Second Hand Exposure: No; Do You Dip or Chew Tobacco: No; Tobacco Cessation Education Requested by Patient: No Hx Alcohol Use: No Hx Substance Use: No Preferred Language: Fijian Communication Ability: Effective Communication Ability Comment: memory loss, confusion at times Semiautomatic Taper Operator Required: No Beliefs That Will Affect Care: None marital status: Single Current Living Situation: Family Current Living Situation Comment: One story home with sister current occupational status: retired 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[place], [place] How many Children do You have: 0 Other Information That Helps Us Care for You: No Feels Safe at Home: Yes Safety Concerns: Feels Safe At This Time Assistive Devices: Glasses Allergies Allergies Allergy/AdvReac Type Severity Reaction Status Date / Time fluconazole Allergy Severe hives,rash,respiratory Unverified 07/19/22 16:16 difficulty hydrochlorothiazide Allergy Severe Rash Unverified 07/19/22 16:16 triamterene Allergy Severe Rash Unverified 07/19/22 16:16 erythromycin base Allergy Intermediate n/a, rash Unverified 07/19/22 16:16 isosorbide Allergy Intermediate head Unverified 07/19/22 16:16 NSAIDS (Non-Steroidal Allergy Intermediate hives,rash Unverified 07/19/22 16:16 Anti-Inflamma amifostine Allergy Unknown Unverified 07/19/22 16:16 fluticasone Allergy Unknown Unverified 07/19/22 16:16 lisinopril Allergy Unknown Unverified 07/19/22 16:16 Penicillins Allergy Unknown Unverified 07/19/22 16:16 ethyl alcohol AdvReac Unknown Unverified 07/19/22 16:16 Home Meds Home Medications Medication Instructions Recorded Confirmed albuterol sulfate 90 mcg/actuation 2 puff inhalation BID 02/06/22 07/19/22 aerosol inhaler carbidopa 25 mg-levodopa 100 mg See Rx Instructions .Route .COMPLEX 02/06/22 07/19/22 tablet duloxetine 30 mg capsule,delayed 30 mg PO AMHS 02/06/22 07/19/22 release glimepiride 1 mg tablet 1 mg PO DAILY 02/06/22 07/19/22 losartan 25 mg tablet 25 mg PO BID 02/06/22 07/19/22 metformin 1,000 mg tablet 1,000 mg PO BID 02/06/22 07/19/22 nitroglycerin 0.4 mg sublingual 0.5 mg sublingual .Q5MIN PRN Chest 02/06/22 07/19/22 tablet (Nitrostat) Pain rivastigmine 9.5 mg/24 hour 1 patch topical .Q24HR 02/06/22 07/19/22 transdermal patch sennosides 8.6 mg-docusate sodium 1 tab-cap PO DAILY PRN Constipation 02/06/22 07/19/22 50 mg tablet (Senokot-S) umeclidinium 62.5 mcg/actuation 1 inh inhalation QAM 02/06/22 07/19/22 blister powder for inhalation (Incruse Ellipta) aspirin 81 mg tablet,delayed 81 mg PO QAM 06/15/22 07/19/22 release budesonide-formoterol HFA 160 2 puff inhalation BID 06/15/22 07/19/22 mcg-4.5 mcg/actuation aerosol inhaler rosuvastatin 5 mg tablet 5 mg PO QPM 06/15/22 07/19/22 bisoprolol 5 1 tab PO DAILY 07/19/22 07/19/22 mg-hydrochlorothiazide 6.25 mg tablet coenzyme Q10 200 mg capsule (Co 200 mg PO DAILY 07/19/22 07/19/22 Q-10) mirabegron 50 mg tablet,extended 50 mg PO QPM 07/19/22 07/19/22 release 24 hr (Myrbetriq) pyridoxine (vitamin B6) 50 mg 50 mg PO DAILYBL 07/19/22 07/19/22 tablet (Vitamin B-6) sitagliptin phosphate 100 mg 100 mg PO QAM 07/19/22 07/19/22 tablet (Januvia) Results & Data (ED) Vital Signs Vital Signs - 24 hr 07/19/22 13:48 07/19/22 14:27 07/19/22 14:30 Pulse Rate 92 H Pulse Rate from SpO2 Sensor Respiratory Rate 16 Blood Pressure 120/62 Blood Pressure Mean 81 Pulse Oximetry 95 Oxygen Delivery Method Room Air 07/19/22 14:30 07/19/22 15:00 07/19/22 15:30 Pulse Rate 61 60 60 Pulse Rate from SpO2 Sensor 61 61 61 Respiratory Rate 23 20 21 Blood Pressure Blood Pressure Mean Pulse Oximetry 96 96 97 Oxygen Delivery Method 07/19/22 16:00 07/19/22 16:09 07/19/22 16:09 Pulse Rate 62 63 Pulse Rate from SpO2 Sensor 62 63 Respiratory Rate 15 16 Blood Pressure 150/74 H Blood Pressure Mean 99 Pulse Oximetry 97 99 Oxygen Delivery Method 07/19/22 16:30 07/19/22 16:31 07/19/22 16:31 Pulse Rate 62 62 Pulse Rate from SpO2 Sensor 62 62 Respiratory Rate 21 15 Blood Pressure 155/58 H Blood Pressure Mean 90 Pulse Oximetry 98 97 Oxygen Delivery Method 07/19/22 17:00 07/19/22 17:00 Pulse Rate 63 Pulse Rate from SpO2 Sensor 76 Respiratory Rate 23 Blood Pressure 161/73 H Blood Pressure Mean 102 Pulse Oximetry 97 Oxygen Delivery Method Laboratory Data 07/19/22 13:12 07/19/22 13:12 Lab Results 07/19/22 07/19/22 07/19/22 Range/Units 13:12 13:12 13:12 WBC 9.26 (4.8-10.8) K/ul RBC 3.93 L (4.20-5.40) M/uL Hgb 11.4 L (12.0-16.0) g/dl Hct 34.8 L (37.0-47.0) % MCV 88.5 (80.0-100.0) fL MCH 29.0 (25.0-34.0) pg MCHC 32.8 (32.0-36.0) g/dL RDW Std Deviation 47.5 H (36.4-46.3) fL RDW Coeff of [place] 14.6 H (11.5-14.5) % Plt Count 289 (130-400) K/uL MPV 9.4 (9.4-12.4) fL Immature Gran % (Auto) 0.2 % Neut % (Auto) 68.1 % Lymph % (Auto) 18.4 % [place] % (Auto) 12.0 % Eos % (Auto) 1.1 % Baso % (Auto) 0.2 % Neut # (Auto) 6.31 (1.40-6.50) K/uL Lymph # (Auto) 1.70 (1.2-3.4) K/uL [place] # (Auto) 1.11 H (0.11-0.59) K/uL Eos # (Auto) 0.10 (0-0.50) K/uL Baso # (Auto) 0.02 (0-0.2) K/uL Immature Gran # (Auto) 0.02 (0.01-0.20) K/uL Sodium 138 (136-145) mmol/L Potassium 4.3 (3.5-5.1) mmol/L Chloride 105 (98-107) mmol/L Carbon Dioxide 27 (21-32) mmol/L Anion Gap 6 (3-11) BUN 23 (6-23) mg/dl Creatinine 1.03 (0.6-1.2) mg/dl Est Cr Clr Drug Dosing Not Reportable Est GFR ( Amer) 59.0 ml/min Est GFR (Non-Af Amer) 50.9 ml/min BUN/Creatinine Ratio 22.3 H (10-20) Glucose 126 H (70-99(Fasting)) mg/dl Lactate (0.4-2.0) mmol/L Calcium 9.3 (8.6-10.3) mg/dl Magnesium 2.0 (1.7-2.4) mg/dl Total Bilirubin 0.6 (0.2-1.0) mg/dl Direct Bilirubin 0.1 (0-0.2) mg/dl AST 15 (13-39) U/L ALT 8 (7-52) U/L Alkaline Phosphatase 59 (34-104) U/L Troponin I High Sens 4.3 (0-14) pg/ml Total Protein 6.5 (6.0-8.3) gm/dl Albumin 3.8 (3.4-5.0) gm/dl Procalcitonin < 0.05 (0-0.5) ng/ml Urine Color Urine Appearance (Clear) Urine pH (4.5-7.5) Ur Specific [place] (1.000-1.030) Urine Protein (Negative) Urine Glucose (UA) (Negative) Urine Ketones (Negative) Urine Blood (Negative) Urine Nitrite (Negative) Urine Bilirubin (Negative) Urine Urobilinogen (Negative) Ur Leukocyte Esterase (Negative) SARS-CoV-2 (PCR) (Negative) Influenza Type A (PCR) (Neg) Influenza Type B (PCR) (Neg) RSV (RT-PCR) (Neg) 07/19/22 07/19/22 07/19/22 Range/Units 13:50 14:53 16:08 WBC (4.8-10.8) K/ul RBC (4.20-5.40) M/uL Hgb (12.0-16.0) g/dl Hct (37.0-47.0) % MCV (80.0-100.0) fL MCH (25.0-34.0) pg MCHC (32.0-36.0) g/dL RDW Std Deviation (36.4-46.3) fL RDW Coeff of [place] (11.5-14.5) % Plt Count (130-400) K/uL MPV (9.4-12.4) fL Immature Gran % (Auto) % Neut % (Auto) % Lymph % (Auto) % [place] % (Auto) % Eos % (Auto) % Baso % (Auto) % Neut # (Auto) (1.40-6.50) K/uL Lymph # (Auto) (1.2-3.4) K/uL [place] # (Auto) (0.11-0.59) K/uL Eos # (Auto) (0-0.50) K/uL Baso # (Auto) (0-0.2) K/uL Immature Gran # (Auto) (0.01-0.20) K/uL Sodium (136-145) mmol/L Potassium (3.5-5.1) mmol/L Chloride (98-107) mmol/L Carbon Dioxide (21-32) mmol/L Anion Gap (3-11) BUN (6-23) mg/dl Creatinine (0.6-1.2) mg/dl Est Cr Clr Drug Dosing Est GFR ( Amer) ml/min Est GFR (Non-Af Amer) ml/min BUN/Creatinine Ratio (10-20) Glucose (70-99(Fasting)) mg/dl Lactate 2.1 H* (0.4-2.0) mmol/L Calcium (8.6-10.3) mg/dl Magnesium (1.7-2.4) mg/dl Total Bilirubin (0.2-1.0) mg/dl Direct Bilirubin (0-0.2) mg/dl AST (13-39) U/L ALT (7-52) U/L Alkaline Phosphatase (34-104) U/L Troponin I High Sens (0-14) pg/ml Total Protein (6.0-8.3) gm/dl Albumin (3.4-5.0) gm/dl Procalcitonin (0-0.5) ng/ml Urine Color Yellow Urine Appearance Clear (Clear) Urine pH 5.5 (4.5-7.5) Ur Specific [place] 1.018 (1.000-1.030) Urine Protein Negative (Negative) Urine Glucose (UA) Negative (Negative) Urine Ketones Negative (Negative) Urine Blood Negative (Negative) Urine Nitrite Negative (Negative) Urine Bilirubin Negative (Negative) Urine Urobilinogen Negative (Negative) Ur Leukocyte Esterase Negative (Negative) SARS-CoV-2 (PCR) NEGATIVE (Negative) Influenza Type A (PCR) Negative (Neg) Influenza Type B (PCR) Negative (Neg) RSV (RT-PCR) Negative (Neg) 07/19/22 Range/Units 16:40 WBC (4.8-10.8) K/ul RBC (4.20-5.40) M/uL Hgb (12.0-16.0) g/dl Hct (37.0-47.0) % MCV (80.0-100.0) fL MCH (25.0-34.0) pg MCHC (32.0-36.0) g/dL RDW Std Deviation (36.4-46.3) fL RDW Coeff of [place] (11.5-14.5) % Plt Count (130-400) K/uL MPV (9.4-12.4) fL Immature Gran % (Auto) % Neut % (Auto) % Lymph % (Auto) % [place] % (Auto) % Eos % (Auto) % Baso % (Auto) % Neut # (Auto) (1.40-6.50) K/uL Lymph # (Auto) (1.2-3.4) K/uL [place] # (Auto) (0.11-0.59) K/uL Eos # (Auto) (0-0.50) K/uL Baso # (Auto) (0-0.2) K/uL Immature Gran # (Auto) (0.01-0.20) K/uL Sodium (136-145) mmol/L Potassium (3.5-5.1) mmol/L Chloride (98-107) mmol/L Carbon Dioxide (21-32) mmol/L Anion Gap (3-11) BUN (6-23) mg/dl Creatinine (0.6-1.2) mg/dl Est Cr Clr Drug Dosing Est GFR ( Amer) ml/min Est GFR (Non-Af Amer) ml/min BUN/Creatinine Ratio (10-20) Glucose (70-99(Fasting)) mg/dl Lactate 1.6 (0.4-2.0) mmol/L Calcium (8.6-10.3) mg/dl Magnesium (1.7-2.4) mg/dl Total Bilirubin (0.2-1.0) mg/dl Direct Bilirubin (0-0.2) mg/dl AST (13-39) U/L ALT (7-52) U/L Alkaline Phosphatase (34-104) U/L Troponin I High Sens (0-14) pg/ml Total Protein (6.0-8.3) gm/dl Albumin (3.4-5.0) gm/dl Procalcitonin (0-0.5) ng/ml Urine Color Urine Appearance (Clear) Urine pH (4.5-7.5) Ur Specific [place] (1.000-1.030) Urine Protein (Negative) Urine Glucose (UA) (Negative) Urine Ketones (Negative) Urine Blood (Negative) Urine Nitrite (Negative) Urine Bilirubin (Negative) Urine Urobilinogen (Negative) Ur Leukocyte Esterase (Negative) SARS-CoV-2 (PCR) (Negative) Influenza Type A (PCR) (Neg) Influenza Type B (PCR) (Neg) RSV (RT-PCR) (Neg) Administered Medications Albuterol (Albuterol Hfa 8 Gm Inhaler) 2 puffs INH BID [facility] Stop: 08/18/22 20:59 Last Admin: 07/20/22 07:54 Dose: Not Given Documented By: Admin: 07/19/22 22:10 Dose: 2 puffs Documented By: SHAISTA Aspirin (Aspirin 81 Mg Ectab) 81 mg PO QAM [facility] Stop: 08/19/22 08:59 Last Admin: 07/20/22 10:26 Dose: 81 mg Documented By: ULICES Bisoprolol Fumarate (Bisoprolol Fumarate 5 Mg Tab) 5 mg PO DAILY [facility] Stop: 08/19/22 08:59 Last Admin: 07/20/22 10:25 Dose: 5 mg Documented By: ULICES Carbidopa/Levodopa (Carbidopa/Levodopa 25/100mg Tab) 1.5 tab PO TI D@1200,1600,2000 [facility] Stop: 08/18/22 19:59 Last Admin: 07/19/22 20:23 Dose: 1.5 tab Documented By: YAJAIRA Carbidopa/Levodopa (Carbidopa/Levodopa 25/100mg Tab) 2 tab PO DAILY@0800 [facility] Stop: 08/19/22 07:59 Last Admin: 07/20/22 10:27 Dose: 2 tab Documented By: ULICES Duloxetine HCl (Duloxetine Hcl 30 Mg Cap) 30 mg PO AMHS [facility] Stop: 08/18/22 20:59 Last Admin: 07/20/22 10:26 Dose: 30 mg Documented By: Admin: 07/19/22 20:22 Dose: 30 mg Documented By: YAJAIRA Enoxaparin Sodium (Enoxaparin Inj 40 Mg/0.4 Ml Syr) 40 mg SQ QAM [facility] Stop: 08/19/22 08:59 Last Admin: 07/20/22 10:24 Dose: 40 mg Documented By: ULICES Fluticasone/Vilanterol (Fluticasone/Vilanterol 200/25mcg 14 Puffs/Inhaler) 1 puffs INH DAILY [facility] Stop: 08/19/22 08:59 Last Admin: 07/20/22 10:20 Dose: 1 puffs Documented By: ULICES Hydrochlorothiazide (Hydrochlorothiazide 25 Mg Tab) 6.25 mg PO DAILY [facility] Stop: 08/19/22 08:59 Last Admin: 07/20/22 10:21 Dose: 6.25 mg Documented By: ULICES Metronidazole (Flagyl) 500 mg in 100 mls @ 100 mls/hr IV Q8H [facility] Stop: 07/26/22 18:29 Last Infusion: 07/20/22 11:35 Dose: 0 mls/hr Documented By: Admin: 07/20/22 10:20 Dose: 100 mls/hr Documented By: Infusion: 07/20/22 04:20 Dose: 0 mls/hr Documented By: Admin: 07/20/22 03:10 Dose: 100 mls/hr Documented By: Infusion: 07/19/22 21:37 Dose: 0 mls/hr Documented By: Admin: 07/19/22 20:23 Dose: 100 mls/hr Documented By: YAJAIRA Aztreonam 1,000 mg/ Dextrose 110 mls @ 100 mls/hr IV Q8H [facility]; Protocol Stop: 07/26/22 19:44 Last Infusion: 07/20/22 05:56 Dose: 0 mls/hr Documented By: Admin: 07/20/22 04:14 Dose: 100 mls/hr Documented By: Infusion: 07/19/22 22:49 Dose: 0 mls/hr Documented By: Admin: 07/19/22 21:30 Dose: 100 mls/hr Documented By: YAJAIRA Insulin Aspart (Insulin Aspart Per Unit Charge) 0 units SC ACHS [facility] Stop: 08/18/22 20:59 Last Admin: 07/20/22 10:19 Dose: 4 units Documented By: ULICES Co-signed By: RIDGE Admin: 07/19/22 20:41 Dose: 2 units Documented By: YAJAIRA Co-signed By: IVAN Insulin Glargine (Lantus Per Unit Charge) 5 units SQ BID [facility] Stop: 08/18/22 20:59 Last Admin: 07/20/22 10:31 Dose: 5 units Documented By: ULICES Co-signed By: RIDGE Admin: 07/19/22 20:42 Dose: 5 units Documented By: YAJAIRA Co-signed By: IVAN Losartan Potassium (Losartan Potassium 25 Mg Tab) 25 mg PO BID [facility] Stop: 08/18/22 20:59 Last Admin: 07/20/22 10:27 Dose: 25 mg Documented By: Admin: 07/19/22 20:22 Dose: 25 mg Documented By: YAJAIRA Mirabegron (Mirabegron Er 25 Mg Tab) 50 mg PO QPM [facility] Stop: 08/18/22 20:59 Last Admin: 07/19/22 20:22 Dose: 50 mg Documented By: YAJAIRA Pyridoxine HCl (Pyridoxine Hcl 50 Mg Tab) 50 mg PO DAILYBL [facility] Stop: 08/19/22 10:29 Last Admin: 07/20/22 10:26 Dose: 50 mg Documented By: ULICES Rosuvastatin Calcium (Rosuvastatin Calcium 5 Mg Tab) 5 mg PO QPM [facility] Stop: 08/18/22 20:59 Last Admin: 07/19/22 20:22 Dose: 5 mg Documented By: YAJAIRA Umeclidinium [place] (Umeclidinium [place] 62.5mcg/Blister 7 Puffs/Inhaler) 1 puffs INH QAM [facility] Stop: 08/19/22 08:59 Last Admin: 07/20/22 10:28 Dose: 1 puffs Documented By: ULICES Discontinued Medications Doxycycline Hyclate (Doxycycline Hyclate 100 Mg Cap) 100 mg PO NOW STA Stop: 07/19/22 14:51 Last Admin: 07/19/22 15:19 Dose: 100 mg Documented By: TRI Sodium Chloride (Nss 1000ml) 1,000 mls @ 999 mls/hr IV .Q1H1M [facility] Stop: 07/19/22 14:45 Last Infusion: 07/19/22 15:43 Dose: 0 mls/hr Documented By: Admin: 07/19/22 14:30 Dose: 999 mls/hr Documented By: TRI Acetaminophen (Ofirmev) 1,000 mg in 100 mls @ 400 mls/hr IV NOW STA Stop: 07/19/22 13:58 Last Infusion: 07/19/22 15:01 Dose: 0 mls/hr Documented By: Admin: 07/19/22 14:30 Dose: 400 mls/hr Documented By: TRI Ceftriaxone Sodium 1,000 mg/ (Dextrose) 50 mls @ 100 mls/hr IV NOW STA Stop: 07/19/22 15:19 Last Infusion: 07/19/22 16:08 Dose: 0 mls/hr Documented By: Admin: 07/19/22 15:25 Dose: 100 mls/hr Documented By: TRI Miscellaneous (Rivastigmine 9.5 Mg/24 Hour Patch 24 Hour - Order Awaiting Action) 1 each N/A QS [facility] Stop: 08/19/22 00:00 Last Admin: 07/20/22 10:28 Dose: Not Given Documented By: Admin: 07/19/22 23:24 Dose: Not Given Documented By: EGS Imaging Data Radiologist's Impression: Chest X-Ray 07/19/22 13:41 XR chest 1V portable HISTORY: Sepsis COMPARISON: Chest 06/14/2022. FINDINGS: The lungs are clear. Cardiac silhouette is normal in size. No pleural effusions. No pneumothorax. IMPRESSION: No acute process. ACT 112: Negative or not required by law. Electronically signed by: Fermin Chavarria M.D. 07/19/2022 2:17 PM Foot X-Ray 07/19/22 13:41 XR foot LT 2V CLINICAL HISTORY: wound infection TECHNIQUE: 2 views of the left foot were obtained. Comparison: Comparison is made to left foot CT 02/06/2022 FINDINGS: No evidence of bony erosion is seen. Hallux valgus and osteoarthritic changes are seen. Plantar enthesophyte is noted. No soft tissue abnormality is seen. IMPRESSION: No evidence of bony erosion is radiographically evident. Of note, MRI is a more sensitive modality. ACT 112: Negative or not required by law. Electronically signed by: Teddy Oakes M.D. 07/19/2022 2:[address] 07/19/22 13:41 CT OF THE HEAD WITHOUT CONTRAST CLINICAL HISTORY: Altered mental status. COMPARISON STUDY: MRI of the brain February 06, 2022. Head CT June 14, 2022. CT DOSE: 614.27 mGy.cm TECHNIQUE: Helical axial images of the head were obtained without IV contrast. Automated exposure control was utilized for the study. A dose lowering technique was utilized adhering to the principles of ALARA. FINDINGS: No acute intracranial hemorrhage, midline shift or mass effect is present. 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 White matter hypodensity suggests small vessel disease. There has been no change in appearance of the brain. The ventricular system is unremarkable. The basal cisterns are patent. No extra-axial collections are present. There are no findings to suggest acute dural sinus thrombosis or acute territorial infarct. No significant calvarial abnormalities are present. Visualized portions of the sinuses and mastoid air cells are clear. IMPRESSION: No acute intracranial findings. No change in appearance of the brain. ACT 112: Negative or not required by law. Electronically signed by: Rj Andrew M.D. 07/19/2022 2:22 PM Discharge Plan Visit Data Chief Complaint: Altered Mental Status Stated Complaint: TIA SX ED Provider: Annmarie Calderon Discharge Problem: AMS (altered mental status), Generalized weakness, Cellulitis of left foot Patient Disposition: Admitted As Inpatient Discharge Instructions Interventions: ED Discharge Assessment Last Done: 07/19/22 17:43
--- NOTE | 2022-07-19 16:38 | History & Physical Report ---
Date of Service July 19, 2022 Assessment & Plan (1) Cellulitis of left foot: Plan: 82 y/o female with a hx of Parkinson disease with dementia, DM2 (last A1c on 07/04/22 was 7.0), prior TIA, HTN, hyperlipidemia, asthma/COPD, and CAD who presented to the ED with worsening left foot cellulitis after completing a 10 day course of Bactrim and new onset confusion today with progressive generalized weakness. Outpatient wound culture grew Corynebacterium striatum and A ctinotignum schaalii, no sensitivities were done. Mental status has improved since receiving IVF hydration and IV antibiotics in the ED. Per sisters at bedside, she is essentially back to baseline. Initial lactate was 2.1, improved to 1.6 on recheck. - Admit to med surg - Continue IV antibiotics but will change to aztreonam/flagyl for anaerobic coverage - will adjust pending response - Consult wound care for diabetic ulcer - Acetaminophen for pain - Labs in AM - CBC, BMP (2) Diabetic ulcer of toe of left foot: Plan: See plan for #1 (3) Acute metabolic encephalopathy: Plan: AMS due to the infection. Has already improved with IVF and antibiotics receiv ed in ED - continue to monitor. No evidence of CVA on CT in ED. No new neurologic deficits noted. (4) Generalized weakness: Plan: Fall precautions PT/OT (5) Diabetes mellitus, type II: Plan: Last A1c on 07/04/22 was 7.0 - Hold oral meds while admitted - Insulin sliding scale - Diabetic diet (6) Parkinson's disease: Plan: Continue outpatient regimen including Sinemet - timing clarified with sisters Pt denies issues with dysphagia at baseline, no specific diet - will order aspiration precautions (7) Hypertension: (8) Hyperlipidemia: (9) History of TIA (transient ischemic attack): (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: (11) CAD (coronary artery disease): Plan Continue other home medications as appropriate Pt seen and reviewed with collaborating physician, Dr. Holloway. Plan of care discussed and as outlined above. Code Status: Full code DVT Prophylaxis: Vaishali Luciano PA-C History of Present Illness Chief Complaint: Confusion, lethargy, foot infection Primary Care Provider: Jag Stover MD This is an 82 y/o female with a PMH of Parkinson disease with associated dementia, DM2, HTN, prior TIA, CAD, asthma/COPD, anxiety, hyperlipidemia, and GERD presents to the ED today with worsening of left foot infection, confusion, and progressive weakness. History is obtained from patient and from her two sisters at bedside, with whom she is currently staying. On 07/04/22, pt was seen in PCP office and diagnosed with left foot cellulitis and diabetic foot ulcer between 1st and 2nd toe. She was given a 10 day course of Bactrim and referred to wound care. Wound culture collected at that visit showed Corynebacterium striatum an Actinotignum schaalii. She has not yet seen wound care but has an appt in 10 days. She completed the course of Bactrim as prescribed. The r edness in her foot significantly improved with only residual redness in her left 2nd toe. The left foot swelling was stable. However, since finishing the Bactrim 3-4 days ago, they have noted worsening redness, which is now streaking up her left leg. Swelling is stable. Denies pain at rest but movement of the toes causes pain. Typically, pt ambulates with a walker but over the last day she has been essentially confined to her bed due to weakness. This morning, her sisters noted confusion, lethargy and dysarthria. They were concerned she may be having a stroke so they brought her to the ED. Since being in the ED, she has received 1000 ml NSS, ceftriaxone, and doxycycline with improvement in her mental status. She is now more awake and answering questions near her baseline. Her sister checks her sugars and states that they have not been more elevated than usual (none >200). Allergies Allergy/AdvReac Type Severity Reaction Status Date / Time fluconazole Allergy Severe hives,rash,respiratory Unverified 07/19/22 16:16 difficulty hydrochlorothiazide Allergy Severe Rash Unverified 07/19/22 16:16 triamterene Allergy Severe Rash Unverified 07/19/22 16:16 erythromycin base Allergy Intermediate n/a, rash Unverified 07/19/22 16:16 isosorbide Allergy Intermediate head Unverified 07/19/22 16:16 NSAIDS (Non-Steroidal Allergy Intermediate hives,rash Unverified 07/19/22 16:16 Anti-Inflamma amifostine Allergy Unknown Unverified 07/19/22 16:16 fluticasone Allergy Unknown Unverified 07/19/22 16:16 lisinopril Allergy Unknown Unverified 07/19/22 16:16 Penicillins Allergy Unknown Unverified 07/19/22 16:16 ethyl alcohol AdvReac Unknown Unverified 07/19/22 16:16 Home Medications Medication Instructions Recorded Confirmed Type albuterol sulfate 90 mcg/actuation 2 puff inhalation BID 02/06/22 07/19/22 History aerosol inhaler carbidopa 25 mg-levodopa 100 mg See Rx Instructions .Route .COMPLEX 02/06/22 07/19/22 History tablet duloxetine 30 mg capsule,delayed 30 mg PO AMHS 02/06/22 07/19/22 History release glimepiride 1 mg tablet 1 mg PO DAILY 02/06/22 07/19/22 History losartan 25 mg tablet 25 mg PO BID 02/06/22 07/19/22 History metformin 1,000 mg tablet 1,000 mg PO BID 02/06/22 07/19/22 History nitroglycerin 0.4 mg sublingual 0.5 mg sublingual .Q5MIN PRN Chest 02/06/22 07/19/22 History tablet (Nitrostat) Pain rivastigmine 9.5 mg/24 hour 1 patch topical .Q24HR 02/06/22 07/19/22 History transdermal patch sennosides 8.6 mg-docusate sodium 1 tab-cap PO DAILY PRN Constipation 02/06/22 07/19/22 History 50 mg tablet (Senokot-S) umeclidinium 62.5 mcg/actuation 1 inh inhalation QAM 02/06/22 07/19/22 History blister powder for inhalation (Incruse Ellipta) aspirin 81 mg tablet,delayed 81 mg PO QAM 06/15/22 07/19/22 History release budesonide-formoterol HFA 160 2 puff inhalation BID 06/15/22 07/19/22 History mcg-4.5 mcg/actuation aerosol inhaler rosuvastatin 5 mg tablet 5 mg PO QPM 06/15/22 07/19/22 History bisoprolol 5 1 tab PO DAILY 07/19/22 07/19/22 History mg-hydrochlorothiazide 6.25 mg tablet coenzyme Q10 200 mg capsule (Co 200 mg PO DAILY 07/19/22 07/19/22 History Q-10) mirabegron 50 mg tablet,extended 50 mg PO QPM 07/19/22 07/19/22 History release 24 hr (Myrbetriq) pyridoxine (vitamin B6) 50 mg 50 mg PO DAILYBL 07/19/22 07/19/22 History tablet (Vitamin B-6) sitagliptin phosphate 100 mg 100 mg PO QAM 07/19/22 07/19/22 History tablet (Januvia) Past Med/Surg History Medical History (Updated 07/19/22 @ 19:33 by Nani Luciano PA-C) Anxiety Asthma CAD (coronary artery disease) COPD (chronic obstructive pulmonary disease) COVID-19 Delirium Dementia Diabetes mellitus, type II Generalized weakness GERD (gastroesophageal reflux disease) History of TIA (transient ischemic attack) Hyperlipidemia Hypertension Multiple fractures of ribs of left side Parkinson's disease Transient confusion Surgical History Hx of appendectomy S/P cholecystectomy Stented coronary artery Family History Other Diabetes Heart disease Hypertension Social History Smoking Status: Former smoker Tobacco Type: Cigarettes Cigarettes Per Day: 1 pack/day; Second Hand Exposure: No; Do You Dip or Chew Tobacco: No; Tobacco Cessation Education Requested by Patient: No Hx Alcohol Use: No Hx Substance Use: No Preferred Language: Liberian Communication Ability: Effective Communication Ability Comment: memory loss, confusion at times Student Union Consultant Required: No Beliefs That Will Affect Care: None marital status: Single Current Living Situation: Family Current Living Situation Comment: One story home with sister current occupational status: retired 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[place], [place] How many Children do You have: 0 Other Information That Helps Us Care for You: No Feels Safe at Home: Yes Safety Concerns: Feels Safe At This Time Assistive Devices: Glasses Review of Systems Review of Systems: All systems reviewed & are unremarkable except as noted in HPI & below Constitutional: + fatigue; no fever and no anorexia Ear, Nose, Mouth, Throat: no sore throat and no dysphagia Respiratory: no cough and no dyspnea Cardiovascular: + edema (left LE extending to just above ankle); no chest pain Gastrointestinal: no change in bowel habits, no constipation, no diarrhea/loose stools and no blood in stools Last BM was this morning - formed Genitourinary: no dysuria and no hematuria Musculoskeletal: as per Subjective / HPI rigidity due to Parkinson disease Integumentary: left foot wound as per HPI Neurologic: + unsteadiness, + headache(s) and + confusion Physical Exam Constitutional: well developed and well nourished; no acute distress Eyes: PERRL, conjunctivae normal, anicteric sclerae ENMT: external ear and nose normal, oropharynx normal Neck: trachea midline Respiratory: no respiratory distress and no labored breathing Auscultation: lungs clear to auscultation bilaterally; no rales, no rhonchi and no wheezes Cardiovascular: Rate/Rhythm: regular rate and regular rhythm Gastrointestinal (Abdomen): Inspection/Auscultation: normal bowel sounds; abdomen not distended Percussion/Palpation: abdomen soft; abdomen nontender Musculoskeletal: rigidity and mild cogwheeling with wrist ROM, professor of communication and writing strength equal, no resting tremor noted tender to movement of left 1st and 2nd toe, distal foot Skin: ulcer between left 1st and 2nd toe - associated erythema of dorsal left foot with streak of erythema extending up left leg to just below knee, mild associated warmth Neurologic: moves all extremities Speech / Cognition: no expressive aphasia Psychiatric: Orientation: alert and oriented x 3 Affect: + blunted affect Results & Data Results & Data Vital Signs (Past 12 Hours) Vital Signs Temp Pulse Resp BP Pulse Ox O2 Del Method O2 Flow Rate 07/19/22 16:09 150/74 H 07/19/22 16:09 63 16 99 07/19/22 16:00 62 15 97 07/19/22 15:30 60 21 97 07/19/22 15:00 60 20 96 07/19/22 14:30 61 23 96 07/19/22 14:30 120/62 07/19/22 14:27 92 H 16 07/19/22 13:30 67 24 96 07/19/22 13:30 126/72 07/19/22 13:08 67 24 94 07/19/22 13:48 95 Room Air 07/19/22 13:16 37 C 15 96 07/19/22 13:16 96 Room Air 0 07/19/22 13:16 37 C 67 15 132/66 94 07/19/22 13:10 68 Laboratory Results Laboratory Results - last 24 hr 07/19/22 07/19/22 07/19/22 13:12 13:12 13:12 WBC 9.26 RBC 3.93 L Hgb 11.4 L Hct 34.8 L MCV 88.5 MCH 29.0 MCHC 32.8 RDW Std Deviation 47.5 H RDW Coeff of [place]den 14.6 H Plt Count 289 MPV 9.4 Immature Gran % (Auto) 0.2 Neut % (Auto) 68.1 Lymph % (Auto) 18.4 [place] % (Auto) 12.0 Eos % (Auto) 1.1 Baso % (Auto) 0.2 Neut # (Auto) 6.31 Lymph # (Auto) 1.70 [place] # (Auto) 1.11 H Eos # (Auto) 0.10 Baso # (Auto) 0.02 Immature Gran # (Auto) 0.02 Sodium 138 Potassium 4.3 Chloride 105 Carbon Dioxide 27 Anion Gap 6 BUN 23 Creatinine 1.03 Est Cr Clr Drug Dosing Not Reportable Est GFR ( Amer) 59.0 Est GFR (Non-Af Amer) 50.9 BUN/Creatinine Ratio 22.3 H Glucose 126 H Lactate Calcium 9.3 Magnesium 2.0 Total Bilirubin 0.6 Direct Bilirubin 0.1 AST 15 ALT 8 Alkaline Phosphatase 59 Troponin I High Sens 4.3 Total Protein 6.5 Albumin 3.8 Procalcitonin < 0.05 Urine Color Urine Appearance Urine pH Ur Specific [place] Urine Protein Urine Glucose (UA) Urine Ketones Urine Blood Urine Nitrite Urine Bilirubin Urine Urobilinogen Ur Leukocyte Esterase SARS-CoV-2 (PCR) Influenza Type A (PCR) Influenza Type B (PCR) RSV (RT-PCR) 07/19/22 07/19/22 07/19/22 13:50 14:53 16:08 WBC RBC Hgb Hct MCV MCH MCHC RDW Std Deviation RDW Coeff of [place] Plt Count MPV Immature Gran % (Auto) Neut % (Auto) Lymph % (Auto) [place] % (Auto) Eos % (Auto) Baso % (Auto) Neut # (Auto) Lymph # (Auto) [place] # (Auto) Eos # (Auto) Baso # (Auto) Immature Gran # (Auto) Sodium Potassium Chloride Carbon Dioxide Anion Gap BUN Creatinine Est Cr Clr Drug Dosing Est GFR ( Amer) Est GFR (Non-Af Amer) BUN/Creatinine Ratio Glucose Lactate 2.1 H* Calcium Magnesium Total Bilirubin Direct Bilirubin AST ALT Alkaline Phosphatase Troponin I High Sens Total Protein Albumin Procalcitonin Urine Color Pending Urine Appearance Pending Urine pH Pending Ur Specific [place] Pending Urine Protein Pending Urine Glucose (UA) Pending Urine Ketones Pending Urine Blood Pending Urine Nitrite Pending Urine Bilirubin Pending Urine Urobilinogen Pending Ur Leukocyte Esterase Pending SARS-CoV-2 (PCR) NEGATIVE Influenza Type A (PCR) Negative Influenza Type B (PCR) Negative RSV (RT-PCR) Negative Medications Administered Discontinued Medications Doxycycline Hyclate (Doxycycline Hyclate 100 Mg Cap) 100 mg PO NOW STA Stop: 07/19/22 14:51 Last Admin: 07/19/22 15:19 Dose: 100 mg Documented By: TRI Sodium Chloride (Nss 1000ml) 1,000 mls @ 999 mls/hr IV .Q1H1M ROXANNE Stop: 07/19/22 14:45 Last Infusion: 07/19/22 15:43 Dose: 0 mls/hr Documented By: Admin: 07/19/22 14:30 Dose: 999 mls/hr Documented By: TRI Acetaminophen (Ofirmev) 1,000 mg in 100 mls @ 400 mls/hr IV NOW STA Stop: 07/19/22 13:58 Last Infusion: 07/19/22 15:01 Dose: 0 mls/hr Documented By: Admin: 07/19/22 14:30 Dose: 400 mls/hr Documented By: TRI Ceftriaxone Sodium 1,000 mg/ (Dextrose) 50 mls @ 100 mls/hr IV NOW STA Stop: 07/19/22 15:19 Last Infusion: 07/19/22 16:08 Dose: 0 mls/hr Documented By: Admin: 07/19/22 15:25 Dose: 100 mls/hr Documented By: TRI Supervising Physician Co-Signing Physician Notes I have seen and examined the patient and have discussed the case with the provider above. I agree with the assessment and plan as stated with the following exceptions. 82 yo F with acute metabolic encephalopathy 2/2 underlying interdigital diabetic foot ulceration with cellulitis and without sepsis. She improved back to mental baseline after rehydration and IV antibiotics were started. On physical examination she is in NAD and is WNWD. She is oriented and following instructions. Skin exam reveals a Stage II ulceration in the interdigital space between the first and second toes of the left foot. There is disfiguration to the toes including severe lateral deviation of the great toes bilaterally. Cardiopulmonary exam is unremarkable. Workup reveals no leukocytosis and a negative procalcitonin. Lactate improved from 2.1 to 1.6 after IVF. Foot xray was unremarkable. 1. LLE cellulitis 2/2 diabetic foot ulcer 2. Acute metabolic encephalopathy-resolved 3. Parkinson's Disease 4. Dementia This is an 82 yo female with confusion 2/2 infection, resolved with treatment in the ER. She has significant disfiguration of her toes and an interdigital ulceration is present which is the likely source of the LLE cellulitis. Agree with parenteral antibiotics now and podiatry consultation to help with future directions of care ans wound healing opportunities. She is also a high risk of falls given history of Parkinson's disease and her feet. She was recently admitted for ambulatory dysfunction and falls one month ago. She may need placement, as her sister's have noted an uptick in the needs for her care at home and are uncertain they are able to meet these needs fully at home. PT/OT and caser shoe parts to assess. DO Jewel
[2022-07-19 16:52] LABS: Appearance Urine Clear (Clear); Bilirubin Urine Negative (Negative); Blood Urine Negative (Negative); Color Urine Yellow; Glucose Urine UA Negative (Negative); Ketones Urine Negative (Negative); Leukocyte Esterase Urine Negative (Negative); Nitrite Urine Negative (Negative); Protein Urine Negative (Negative); Specific Gravity Urine 1.018 (1.000-1.030); Urobilinogen Urine Negative (Negative); pH Urine 5.5 (4.5-7.5)
[2022-07-19] MEDS ORDERED: GLUCOSE 10 TAB/TUBE PO PRN (17:55)
[2022-07-19] MEDS ORDERED: CARBOHYDRATES FOR HYPOGLYCEMIA PO PRN (17:55)
[2022-07-19] MEDS ORDERED: GLUCAGON FOR INJ 1 MG VIAL SQ PRN (17:55)
[2022-07-19] MEDS ORDERED: DOCUSATE SODIUM/SENNA 50/8.6MG TAB PO PRN (17:55)
[2022-07-19] MEDS ORDERED: DEXTROSE 50% 50 ML SYRINGE IV PRN (17:55)
[2022-07-19] MEDS ORDERED: GLUCOSE 40% GEL 15 GM TUBE PO PRN (17:55)
[2022-07-19] MEDS ORDERED: Patient's HEIGHT &/or WEIGHT Needed SCH (18:30)
[2022-07-19] MEDS ORDERED: ACETAMINOPHEN 500 MG TAB PO PRN (19:18)
--- NOTE | 2022-07-19 20:18 | Electrocardiogram Report ---
Test Reason : Blood Pressure : / mmHG Vent. Rate : 067 BPM Atrial Rate : 067 BPM P-R Int : 154 ms QRS Dur : 094 ms QT Int : 388 ms P-R-T Axes : 076 074 076 degrees QTc Int : 409 ms Normal sinus rhythm When compared with ECG of 15-JUN-2022 00:27, Nonspecific T wave abnormality no longer evident in Anterior leads Confirmed by Ryan Lindsey ([id number]) on 07/19/2022 8:17:48 PM Referred By: Confirmed By:Vishnu Lindsey
[2022-07-19] MEDS: MIRABEGRON ER 25 MG TAB PO SCH (20:22)
[2022-07-19] MEDS: ROSUVASTATIN CALCIUM 5 MG TAB PO SCH (20:22)
[2022-07-19] MEDS: DULoxetine HCL 30 MG CAP PO SCH (20:22)
[2022-07-19] MEDS: LOSARTAN POTASSIUM 25 MG TAB PO SCH (20:22)
[2022-07-19] MEDS: metroNIDAZOLE 500 MG/100 ML BAG IV SCH (20:23)
[2022-07-19] MEDS: CARBIDOPA/LEVODOPA 25/100MG TAB PO SCH (20:23)
[2022-07-19] MEDS: INSULIN ASPART PER UNIT CHARGE SC SCH (20:41)
[2022-07-19] MEDS: LANTUS PER UNIT CHARGE SQ SCH (20:42)
[2022-07-19] MEDS: AZTREONAM 1,000 MG in DEXTROSE 5% 100 ML IV SCH (21:30)
[2022-07-19] MEDS: ALBUTEROL HFA 8 GM INHALER INH SCH (22:10)
[2022-07-20] MEDS: metroNIDAZOLE 500 MG/100 ML BAG IV SCH ×3 (03:10→18:02)
[2022-07-20] MEDS: AZTREONAM 1,000 MG in DEXTROSE 5% 100 ML IV SCH ×3 (04:14→19:43)
[2022-07-20 06:36] LABS: Basophils # (auto) 0.02 K/uL (0-0.2); Basophils % (auto) 0.2 %; Eosinophils # (auto) 0.17 K/uL (0-0.50); Hematocrit (blood only) 32.2 % (37.0-47.0); Hemoglobin 10.1 g/dl (12.0-16.0); Immature Granulocytes # (auto) 0.03 K/uL (0.01-0.20); Immature Granulocytes % (auto) 0.3 %; Lymphocytes # (auto) 1.48 K/uL (1.2-3.4); Lymphocytes % (auto) 17.1 %; Mean Corpuscular Hemoglobin 28.5 pg (25.0-34.0); Mean Corpuscular Hgb Conc 31.4 g/dL (32.0-36.0); Mean Platelet Volume 9.5 fL (9.4-12.4); Monocytes # (auto) 0.79 K/uL (0.11-0.59); Monocytes % (auto) 9.1 %; Neutrophils # (auto) 6.15 K/uL (1.40-6.50); Neutrophils % (auto) 71.3 %; Platelet Count 278 K/uL (130-400); RDW Coefficient of Variation 14.6 % (11.5-14.5); RDW Standard Deviation 49.2 fL (36.4-46.3); Red Blood Count 3.54 M/uL (4.20-5.40); White Blood Count 8.64 K/ul (4.8-10.8)
[2022-07-20 07:12] LABS: BUN Creatinine Ratio 24.1 (10-20); Calcium 8.6 mg/dl (8.6-10.3); Creatinine Clr Calc Pharmacy 50.3 ml/min; Est GFR (African American) 72.4 ml/min; Est GFR (Non-African American) 62.5 ml/min; Potassium 4.2 mmol/L (3.5-5.1)
[2022-07-20] MEDS: ALBUTEROL HFA 8 GM INHALER INH SCH ×2 (07:54→19:40)
[2022-07-20] MEDS ORDERED: NON-FORMULARY MEDICATION (Coenzyme Q10 [Co Q-10] 200 mg Capsule) PO SCH (09:00)
[2022-07-20] MEDS: INSULIN ASPART PER UNIT CHARGE SC SCH ×4 (10:19→21:15)
[2022-07-20] MEDS: FLUTICASONE/VILANTEROL 200/25MCG 14 PUFFS/INHALER INH SCH (10:20)
[2022-07-20] MEDS: hydroCHLOROthiazide 25 MG TAB PO SCH (10:21)
[2022-07-20] MEDS: ENOXAPARIN INJ 40 MG/0.4 ML SYR SQ SCH (10:24)
[2022-07-20] MEDS: BISOPROLOL FUMARATE 5 MG TAB PO SCH (10:25)
[2022-07-20] MEDS: ASPIRIN 81 MG ECTAB PO SCH (10:26)
[2022-07-20] MEDS: PYRIDOXINE HCL 50 MG TAB PO SCH (10:26)
[2022-07-20] MEDS: DULoxetine HCL 30 MG CAP PO SCH ×2 (10:26→20:56)
[2022-07-20] MEDS: LOSARTAN POTASSIUM 25 MG TAB PO SCH ×2 (10:27→20:56)
[2022-07-20] MEDS: CARBIDOPA/LEVODOPA 25/100MG TAB PO SCH ×4 (10:27→20:56)
[2022-07-20] MEDS: UMECLIDINIUM BROMIDE 62.5MCG/BLISTER 7 PUFFS/INHALER INH SCH (10:28)
[2022-07-20] MEDS: LANTUS PER UNIT CHARGE SQ SCH (10:31)
--- NOTE | 2022-07-20 17:17 | Hospitalist Progress Note ---
Date of Service July 20, 2022 Assessment & Plan (1) Cellulitis of left foot: (2) Diabetic ulcer of toe of left foot: Plan: 82 y/o female with a hx of Parkinson disease with dementia, DM2 (last A1c on 07/04/22 was 7.0), prior TIA, HTN, hyperlipidemia, asthma/COPD, and CAD who presented to the ED with worsening left foot cellulitis after completing a 10 day course of Bactrim and new onset confusion today with progressive generalized weakness. Outpatient wound culture grew Corynebacterium striatum and Actinotignum schaalii, no sensitivities were done. Mental status has improved since receiving IVF hydration and IV antibiotics in the ED. Per sisters at bedside, she is essentially back to baseline. Initial lactate was 2.1, improved to 1.6 on recheck. Foot Xray showed No evidence of bony erosion is radiographically evident. received IV abx with ceftriaxone and doxycycline Currently on IV aztreonam/flagyl for anaerobic coverage Blood cx no growth Foot cx pending Wound care on board Clinically improves (3) Acute metabolic encephalopathy: Plan: AMS due to the infection. 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: (11) CAD (coronary artery disease): Plan Continue aspirin and statin DVT Prophylaxis: Lovenox Code status Full code Admission and Anticipated Discharge Date Admission Date: July 19, 2022 Subjective Pt was seen and examined for follow up Lying in bed with no acute distress Her left lower extremity erythema improves Left foot continues to swollen Denies any chest pain, palpitation, dizziness and SOB Review of Systems Review of Systems: All systems reviewed & are unremarkable except as noted in Subjective Physical Exam Physical Exam: General- No acute distress Head- atraumatic Eyes- PERRL, EOMI, ENT- oropharynx clear Neck- supple, no JVD Lungs- clear to auscultation Heart- regular rhythm; no murmur Abdomen- normal bowel sounds, soft, nontender Extremities- no calf tenderness, +LLE swollen, warm and erythema improves Neuro- alert, awake, PERRL, EOMI; no facial palsy; no dysarthria Skin- warm & dry Results & Data Results & Data Vital Signs (Past 12 Hours) Vital Signs Temp Pulse Resp BP Pulse Ox O2 Del Method 07/20/22 14:40 36.8 C 70 16 129/66 95 Room Air 07/20/22 07:52 67 16 98 Room Air 07/20/22 07:05 37.2 C 73 16 163/71 H 97 Room Air
--- NOTE | 2022-07-20 20:37 | Orthopedic Consultation ---
Date of Consultation July 20, 2022 Assessment & Plan (1) Diabetic ulcer of toe of left foot: Patient seen, evaluated, and treated. I examined the patient for an ulcer that has been resistant to healing. Reviewed x-rays and x-ray findings. There is no gas or signs of osseous change. Awaiting wound culture. Wound cleansed with betadine followed by normal saline. Manners in which pressure reduction could be achieved were investigated and initiated. Off-loading is a critical part of this patient's management. Application of 4x4 gauze first interspace left foot for offloading of wound. To offload or remove pressure to the wound is essential. Thank you for allowing me to participate in the care of this Patient. (2) Cellulitis of left foot: (3) Cellulitis of second toe, left: (4) Diabetes mellitus, type II: History of Present Illness Attending Physician: Imer Bernal MD History of Present Illness Patient is a 82 y/o female seen at chairside for left foot diabetic foot ulcer. Patient has a past medical history of Parkinson disease with associated dementia, DM2, HTN, prior TIA, CAD, asthma/COPD, anxiety, hyperlipidemia, and GERD. Patient is pleasant but does have difficulty answering questions. Previous documentation reviewed for complete patient history. Patient was seen in [facility] ED yesterday for worsening of left foot infection, confusion, and progressive weakness. On 07/04/22, pt was seen in PCP office and diagnosed with left foot cellulitis and diabetic foot ulcer between 1st and 2nd toe. She was given a 10 day course of Bactrim and referred to wound care. Wound culture collected at that visit showed Corynebacterium striatum an Actinotignum schaalii. She has not yet seen wound care but has an appt in 10 days. She completed the course of Bactrim as prescribed. The redness in her foot significantly improved with only residual redness in her left 2nd toe. The left foot swelling was stable. However, since finishing the Bactrim 3-4 days ago, they have noted worsening redness, which is now streaking up her left leg. Swelling is stable. Denies pain at rest but movement of the toes causes pain. Typically, pt ambulates with a walker but over the last day she has been essentially confined to her bed due to weakness. Allergies Allergy/AdvReac Type Severity Reaction Status Date / Time fluconazole Allergy Severe hives,rash,respiratory Unverified 07/19/22 16:16 difficulty hydrochlorothiazide Allergy Severe Rash Unverified 07/19/22 16:16 triamterene Allergy Severe Rash Unverified 07/19/22 16:16 erythromycin base Allergy Intermediate n/a, rash Unverified 07/19/22 16:16 isosorbide Allergy Intermediate head Unverified 07/19/22 16:16 NSAIDS (Non-Steroidal Allergy Intermediate hives,rash Unverified 07/19/22 16:16 Anti-Inflamma amifostine Allergy Unknown Unverified 07/19/22 16:16 fluticasone Allergy Unknown Unverified 07/19/22 16:16 lisinopril Allergy Unknown Unverified 07/19/22 16:16 Penicillins Allergy Unknown Unverified 07/19/22 16:16 ethyl alcohol AdvReac Unknown Unverified 07/19/22 16:16 Home Medications Medication Instructions Recorded Confirmed Type albuterol sulfate 90 mcg/actuation 2 puff inhalation BID 02/06/22 07/19/22 History aerosol inhaler carbidopa 25 mg-levodopa 100 mg See Rx Instructions .Route .COMPLEX 02/06/22 07/19/22 History tablet duloxetine 30 mg capsule,delayed 30 mg PO AMHS 02/06/22 07/19/22 History release glimepiride 1 mg tablet 1 mg PO DAILY 02/06/22 07/19/22 History losartan 25 mg tablet 25 mg PO BID 02/06/22 07/19/22 History metformin 1,000 mg tablet 1,000 mg PO BID 02/06/22 07/19/22 History nitroglycerin 0.4 mg sublingual 0.5 mg sublingual .Q5MIN PRN Chest 02/06/22 07/19/22 History tablet (Nitrostat) Pain rivastigmine 9.5 mg/24 hour 1 patch topical .Q24HR 02/06/22 07/19/22 History transdermal patch sennosides 8.6 mg-docusate sodium 1 tab-cap PO DAILY PRN Constipation 02/06/22 07/19/22 History 50 mg tablet (Senokot-S) umeclidinium 62.5 mcg/actuation 1 inh inhalation QAM 02/06/22 07/19/22 History blister powder for inhalation (Incruse Ellipta) aspirin 81 mg tablet,delayed 81 mg PO QAM 06/15/22 07/19/22 History release budesonide-formoterol HFA 160 2 puff inhalation BID 06/15/22 07/19/22 History mcg-4.5 mcg/actuation aerosol inhaler rosuvastatin 5 mg tablet 5 mg PO QPM 06/15/22 07/19/22 History bisoprolol 5 1 tab PO DAILY 07/19/22 07/19/22 History mg-hydrochlorothiazide 6.25 mg tablet coenzyme Q10 200 mg capsule (Co 200 mg PO DAILY 07/19/22 07/19/22 History Q-10) mirabegron 50 mg tablet,extended 50 mg PO QPM 07/19/22 07/19/22 History release 24 hr (Myrbetriq) pyridoxine (vitamin B6) 50 mg 50 mg PO DAILYBL 07/19/22 07/19/22 History tablet (Vitamin B-6) sitagliptin phosphate 100 mg 100 mg PO QAM 07/19/22 07/19/22 History tablet (Januvia) Patient History Medical History Anxiety Asthma CAD (coronary artery disease) COPD (chronic obstructive pulmonary disease) COVID-19 Delirium Dementia Diabetes mellitus, type II Generalized weakness GERD (gastroesophageal reflux disease) History of TIA (transient ischemic attack) Hyperlipidemia Hypertension Multiple fractures of ribs of left side Parkinson's disease Transient confusion Surgical History Hx of appendectomy S/P cholecystectomy Stented coronary artery Family History Other Diabetes Heart disease Hypertension Social History Smoking Status: Former smoker Tobacco Type: Cigarettes Cigarettes Per Day: 1 pack/day; Second Hand Exposure: No; Do You Dip or Chew Tobacco: No; Tobacco Cessation Education Requested by Patient: No Hx Alcohol Use: No Hx Substance Use: No Preferred Language: [place] Communication Ability: Effective Communication Ability Comment: memory loss, confusion at times Functional Tester Typewriters Required: No Beliefs That Will Affect Care: None marital status: Single Current Living Situation: Family Current Living Situation Comment: One story home with sister current occupational status: retired 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 Bilateral overlapping first and second digits. Skin: + induration and + wound Diabetic foot ulcer first interspace left foot. Ulcer is full thickness with depth to muscle and tendon. Moderate drainage. Neurologic: Motor/Sensory: + sensory deficit Psychiatric: Orientation: alert, oriented to person and cooperative Results & Data Vital Signs (Past 12 Hours) Vital Signs Temp Pulse Resp BP Pulse Ox O2 Del Method 07/20/22 19:40 68 18 97 Room Air 07/20/22 14:40 36.8 C 70 16 129/66 95 Room Air Diagnostic Findings Source Foot,Left Procedure/Result Gram Stain - Final Wound Culture - Preliminary Pin-point growth present, reincubating. XR foot LT 2V CLINICAL HISTORY: wound infection TECHNIQUE: 2 views of the left foot were obtained. Comparison: Comparison is made to left foot CT 02/06/2022 FINDINGS: No evidence of bony erosion is seen. Hallux valgus and osteoarthritic changes are seen. Plantar enthesophyte is noted. No soft tissue abnormality is seen. IMPRESSION: No evidence of bony erosion is radiographically evident. Of note, MRI is a more sensitive modality. ACT 112: Negative or not required by law. Electronically signed by: Teddy Oakes M.D. 07/19/2022 2:32 PM
[2022-07-20] MEDS: MIRABEGRON ER 25 MG TAB PO SCH (20:57)
[2022-07-20] MEDS: ROSUVASTATIN CALCIUM 5 MG TAB PO SCH (20:57)
[2022-07-21] MEDS: metroNIDAZOLE 500 MG/100 ML BAG IV SCH ×3 (02:42→17:49)
[2022-07-21] MEDS: AZTREONAM 1,000 MG in DEXTROSE 5% 100 ML IV SCH ×3 (03:40→18:54)
[2022-07-21 05:47] LABS: Hematocrit (blood only) 33.1 % (37.0-47.0); Hemoglobin 10.9 g/dl (12.0-16.0); Mean Corpuscular Hemoglobin 29.1 pg (25.0-34.0); Mean Corpuscular Hgb Conc 32.9 g/dL (32.0-36.0); Mean Corpuscular Volume 88.5 fL (80.0-100.0); Mean Platelet Volume 9.2 fL (9.4-12.4); Platelet Count 304 K/uL (130-400); RDW Coefficient of Variation 14.4 % (11.5-14.5); RDW Standard Deviation 46.1 fL (36.4-46.3); Red Blood Count 3.74 M/uL (4.20-5.40); White Blood Count 8.48 K/ul (4.8-10.8)
[2022-07-21 05:55] LABS: BUN Creatinine Ratio 20.8 (10-20); Calcium 9.1 mg/dl (8.6-10.3); Creatinine Clr Calc Pharmacy 56.8 ml/min; Est GFR (African American) 83.9 ml/min; Est GFR (Non-African American) 72.4 ml/min; Potassium 4.1 mmol/L (3.5-5.1)
[2022-07-21] MEDS: ALBUTEROL HFA 8 GM INHALER INH SCH ×2 (08:04→20:09)
[2022-07-21] MEDS: ENOXAPARIN INJ 40 MG/0.4 ML SYR SQ SCH (08:26)
[2022-07-21] MEDS: INSULIN ASPART PER UNIT CHARGE SC SCH ×4 (09:51→21:16)
[2022-07-21] MEDS: hydroCHLOROthiazide 25 MG TAB PO SCH (09:59)
[2022-07-21] MEDS: CARBIDOPA/LEVODOPA 25/100MG TAB PO SCH ×4 (09:59→20:38)
[2022-07-21] MEDS: DULoxetine HCL 30 MG CAP PO SCH ×2 (10:00→20:38)
[2022-07-21] MEDS: LOSARTAN POTASSIUM 25 MG TAB PO SCH ×2 (10:00→20:38)
[2022-07-21] MEDS: BISOPROLOL FUMARATE 5 MG TAB PO SCH (10:00)
[2022-07-21] MEDS: FLUTICASONE/VILANTEROL 200/25MCG 14 PUFFS/INHALER INH SCH (10:00)
[2022-07-21] MEDS: PYRIDOXINE HCL 50 MG TAB PO SCH (10:00)
[2022-07-21] MEDS: UMECLIDINIUM BROMIDE 62.5MCG/BLISTER 7 PUFFS/INHALER INH SCH (10:00)
[2022-07-21] MEDS: ASPIRIN 81 MG ECTAB PO SCH (10:00)
[2022-07-21] MEDS: RIVASTIGMINE PATCH TD SCH (10:01)
[2022-07-21] MEDS ORDERED: MELATONIN 3 MG TAB PO PRN (17:12)
--- NOTE | 2022-07-21 17:12 | Hospitalist Progress Note ---
Date of Service July 21, 2022 Assessment & Plan (1) Cellulitis of left foot: (2) Diabetic ulcer of toe of left foot: Plan: 82 y/o female with a hx of Parkinson disease with dementia, DM2 (last A1c on 07/04/22 was 7.0), prior TIA, HTN, hyperlipidemia, asthma/COPD, and CAD who presented to the ED with worsening left foot cellulitis after completing a 10 day course of Bactrim and new onset confusion today with progressive generalized weakness. Outpatient wound culture grew Corynebacterium striatum and Actinotignum schaalii, no sensitivities were done. Mental status has improved since receiving IVF hydration and IV antibiotics in the ED. Per sisters at bedside, she is essentially back to baseline. Initial lactate was 2.1, improved to 1.6 on recheck. Foot Xray showed No evidence of bony erosion is radiographically evident. received IV abx with ceftriaxone and doxycycline Currently on IV aztreonam/flagyl for anaerobic coverage Blood cx and foot cx showed no growth Podiatry on board recommended pressure reduction and Off-loading is a critical part of this patient's management. Wound care on board Clinically improves (3) Acute metabolic encephalopathy: Plan: AMS due to the infection. 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: (11) CAD (coronary artery disease): Plan Continue aspirin and statin DVT Prophylaxis: Lovenox Code status Full code Admission and Anticipated Discharge Date Admission Date: July 19, 2022 Subjective Pt was seen and examined for follow up Lying in bed with no acute distress Her left lower extremity erythema improves I went back to updates 2 sisters at bedside and answered all their questions Denies any chest pain, palpitation, dizziness and SOB Review of Systems Review of Systems: All systems reviewed & are unremarkable except as noted in Subjective Physical Exam Physical Exam: General- No acute distress Head- atraumatic Eyes- PERRL, EOMI, ENT- oropharynx clear Neck- supple, no JVD Lungs- clear to auscultation Heart- regular rhythm; no murmur Abdomen- normal bowel sounds, soft, nontender Extremities- no calf tenderness, +LLE swollen, warm and erythema improves Neuro- alert, awake, PERRL, EOMI; no facial palsy; no dysarthria Skin- warm & dry Results & Data Results & Data Vital Signs (Past 12 Hours) Vital Signs Temp Pulse Resp BP Pulse Ox O2 Del Method 07/21/22 15:44 36.9 C 66 18 127/73 94 Room Air 07/21/22 08:30 Room Air 07/21/22 08:10 36.9 C 74 16 137/79 96 Room Air 07/21/22 08:04 76 16 95 Room Air
[2022-07-21] MEDS: MIRABEGRON ER 25 MG TAB PO SCH (20:38)
[2022-07-21] MEDS: ROSUVASTATIN CALCIUM 5 MG TAB PO SCH (20:38)
--- NOTE | 2022-07-21 22:13 | Orthopedic Progress Note ---
Date of Service July 21, 2022 Assessment & Plan (1) Diabetic ulcer of toe of left foot: Plan: Patient seen, evaluated, and treated. Reviewed wound culture, Staph a. Wound cleansed with betadine followed by normal saline. Application of 4x4 gauze first interspace left foot for offloading of wound. Will continue daily dressing changes. To offload or remove pressure to the wound is essential. Thank you for allowing me to participate in the care of this Patient. (2) Cellulitis of left foot: (3) Cellulitis of second toe, left: (4) Diabetes mellitus, type II: Admission and Anticipated Discharge Date Admission Date: July 19, 2022 Subjective Patient seen at bedside resting comfortably. She is very pleasant and notes feeling much better. She has no complaints. Review of Systems Review of Systems: All systems reviewed & are unremarkable except as noted in HPI & below Physical Exam Constitutional: well developed and well nourished Eyes: normal visual nagel by confrontation Neck: normal visual inspection Respiratory: normal respiratory effort Cardiovascular: Rate/Rhythm: regular rate and regular rhythm Skin: + induration and + wound Neurologic: Motor/Sensory: + sensory deficit Psychiatric: Orientation: alert, oriented to person and cooperative Results & Data Vital Signs (Past 12 Hours) Vital Signs Temp Pulse Resp BP BP Pulse Ox O2 Del Method 07/21/22 20:30 37.3 C 65 18 129/77 96 Room Air 07/21/22 20:20 66 18 94 Room Air 07/21/22 15:44 36.9 C 66 18 127/73 94 Room Air Diagnostic Findings Spec: [id number] Collected: 02/06/22 Received: 02/06/[address]: Toy Farmer MD Source: Toe,Left Second OV Order: Ordered: Surf Wnd Cul/Sm Procedure Result Verified Site Gram Stain Final 02/06/220834 Gram Stain Result No WBCs Seen Few Gram Positive Cocci Few Gram Positive Bacilli Surface Wound Culture Final 02/08/22-1200 Organism 1 Staphylococcus aureus Quantity Moderate Sens Sensitivities to Follow +MixWound Plus Low Counts of Probable Skin Lilliam S aureus RX M.I.C. --- --------- Clindamycin S <=0.5 Daptomycin S 1 Erythromycin S <=0.5 Oxacillin S <=0.25 Tetracycline S <=4 Trimeth/Sulfa S <=0.5/9.5 Vancomycin S 2 S = SENSITIVE I = INTERMEDIATE R = RESISTANT
[2022-07-22] MEDS: metroNIDAZOLE 500 MG/100 ML BAG IV SCH ×3 (01:42→18:33)
[2022-07-22] MEDS: AZTREONAM 1,000 MG in DEXTROSE 5% 100 ML IV SCH ×3 (02:51→20:11)
[2022-07-22] MEDS: ALBUTEROL HFA 8 GM INHALER INH SCH ×2 (08:12→18:56)
[2022-07-22] MEDS: FLUTICASONE/VILANTEROL 200/25MCG 14 PUFFS/INHALER INH SCH (08:38)
[2022-07-22] MEDS: UMECLIDINIUM BROMIDE 62.5MCG/BLISTER 7 PUFFS/INHALER INH SCH (08:38)
[2022-07-22] MEDS: BISOPROLOL FUMARATE 5 MG TAB PO SCH (08:38)
[2022-07-22] MEDS: ASPIRIN 81 MG ECTAB PO SCH (08:38)
[2022-07-22] MEDS: CARBIDOPA/LEVODOPA 25/100MG TAB PO SCH ×4 (08:38→20:56)
[2022-07-22] MEDS: DULoxetine HCL 30 MG CAP PO SCH ×2 (08:39→20:56)
[2022-07-22] MEDS: ENOXAPARIN INJ 40 MG/0.4 ML SYR SQ SCH (08:40)
[2022-07-22] MEDS: hydroCHLOROthiazide 25 MG TAB PO SCH (08:40)
[2022-07-22] MEDS: RIVASTIGMINE REMOVE SCH (08:44)
[2022-07-22] MEDS: RIVASTIGMINE PATCH TD SCH (08:45)
[2022-07-22] MEDS: INSULIN ASPART PER UNIT CHARGE SC SCH ×4 (08:47→20:55)
[2022-07-22] MEDS: PYRIDOXINE HCL 50 MG TAB PO SCH (11:01)
[2022-07-22] MEDS: LOSARTAN POTASSIUM 25 MG TAB PO SCH ×2 (11:01→20:56)
--- NOTE | 2022-07-22 16:01 | History & Physical Bridge Note ---
Date of Service July 22, 2022 History & Physical Bridge Note I have examined the patient, reviewed the History & Physical and in the interval since the performance of the History & Physical I have noted the following changes of clinical significance: no changes noted
[2022-07-22] MEDS: ROSUVASTATIN CALCIUM 5 MG TAB PO SCH (20:56)
[2022-07-22] MEDS: MIRABEGRON ER 25 MG TAB PO SCH (20:56)
[2022-07-22] MEDS ORDERED: LANTUS PER UNIT CHARGE SQ SCH (21:00)
--- NOTE | 2022-07-22 22:10 | Hospitalist Progress Note ---
Date of Service July 22, 2022 Assessment & Plan (1) Cellulitis of left foot: (2) Diabetic ulcer of toe of left foot: Plan: 82 y/o female with a hx of Parkinson disease with dementia, DM2 (last A1c on 07/04/22 was 7.0), prior TIA, HTN, hyperlipidemia, asthma/COPD, and CAD who presented to the ED with worsening left foot cellulitis after completing a 10 day course of Bactrim and new onset confusion today with progressive generalized weakness. Outpatient wound culture grew Corynebacterium striatum and Actinotignum schaalii, no sensitivities were done. Mental status has improved since receiving IVF hydration and IV antibiotics in the ED. Per sisters at bedside, she is essentially back to baseline. Initial lactate was 2.1, improved to 1.6 on recheck. Foot Xray showed No evidence of bony erosion is radiographically evident. received IV abx with ceftriaxone and doxycycline Currently on IV aztreonam/flagyl for anaerobic coverage Blood cx and foot cx showed no growth Podiatry on board recommended pressure reduction and Off-loading is a critical part of this patient's management. Wound care on board Clinically improves (3) Acute metabolic encephalopathy: Plan: AMS due to the infection. 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: (11) CAD (coronary artery disease): Plan Continue aspirin and statin DVT Prophylaxis: Lovenox Code status Full code Admission and Anticipated Discharge Date Admission Date: July 19, 2022 Subjective Pt was seen and examined for follow up Lying in bed with no acute distress She is looking alot better today Sister at bedside and I answered all her questions Denies any chest pain, palpitation, dizziness and SOB Review of Systems Review of Systems: All systems reviewed & are unremarkable except as noted in Subjective Physical Exam Physical Exam: General- No acute distress Head- atraumatic Eyes- PERRL, EOMI, ENT- oropharynx clear Neck- supple, no JVD Lungs- clear to auscultation Heart- regular rhythm; no murmur Abdomen- normal bowel sounds, soft, nontender Extremities- no calf tenderness, +LLE swollen, warm and erythema improves Neuro- alert, awake, PERRL, EOMI; no facial palsy; no dysarthria Skin- warm & dry Results & Data Results & Data Vital Signs (Past 12 Hours) Vital Signs Temp Pulse Resp BP Pulse Ox O2 Del Method 07/22/22 21:56 36.9 C 69 18 127/68 95 Room Air 07/22/22 20:58 149/72 H 07/22/22 18:57 74 91 Room Air 07/22/22 14:40 36.4 C L 64 16 116/61 95 Room Air
[2022-07-23] MEDS: metroNIDAZOLE 500 MG/100 ML BAG IV SCH ×3 (03:14→18:05)
[2022-07-23] MEDS: AZTREONAM 1,000 MG in DEXTROSE 5% 100 ML IV SCH ×3 (04:25→19:41)
[2022-07-23] MEDS ORDERED: LANTUS PER UNIT CHARGE SQ ONE ×3 (07:27→14:15)
[2022-07-23] MEDS ORDERED: INSULIN ASPART PER UNIT CHARGE SC ONE (07:27)
[2022-07-23] MEDS: ALBUTEROL HFA 8 GM INHALER INH SCH ×2 (07:38→19:52)
[2022-07-23] MEDS: BISOPROLOL FUMARATE 5 MG TAB PO SCH (08:54)
[2022-07-23] MEDS: hydroCHLOROthiazide 25 MG TAB PO SCH (08:54)
[2022-07-23] MEDS: CARBIDOPA/LEVODOPA 25/100MG TAB PO SCH ×4 (08:54→19:29)
[2022-07-23] MEDS: DULoxetine HCL 30 MG CAP PO SCH ×2 (08:55→19:31)
[2022-07-23] MEDS: ASPIRIN 81 MG ECTAB PO SCH (08:55)
[2022-07-23] MEDS: RIVASTIGMINE PATCH TD SCH (08:55)
[2022-07-23] MEDS: RIVASTIGMINE REMOVE SCH (08:56)
[2022-07-23] MEDS: LOSARTAN POTASSIUM 25 MG TAB PO SCH ×2 (08:56→19:32)
[2022-07-23] MEDS: ENOXAPARIN INJ 40 MG/0.4 ML SYR SQ SCH (08:56)
[2022-07-23] MEDS: FLUTICASONE/VILANTEROL 200/25MCG 14 PUFFS/INHALER INH SCH (08:57)
[2022-07-23] MEDS: UMECLIDINIUM BROMIDE 62.5MCG/BLISTER 7 PUFFS/INHALER INH SCH (08:57)
[2022-07-23] MEDS: INSULIN ASPART PER UNIT CHARGE SC SCH ×4 (09:04→21:13)
[2022-07-23] MEDS: PYRIDOXINE HCL 50 MG TAB PO SCH (10:52)
[2022-07-23] MEDS ORDERED: PHARMACY GLYCEMIC MGMT CONSULT PRN (13:23)
--- NOTE | 2022-07-23 14:03 | Pharmacy Report ---
Pharmacy Glycemic Short Note 2 - Date of Service July 23, 2022 - Glycemic Short BSG Results (Last 24 hours): 07/22/22 07/22/22 07/23/22 17:21 20:39 08:09 POC Glucose 150 H 222 H 174 H 07/23/22 12:07 POC Glucose 312 H* OUTPATIENT ANTIDIABETIC REGIMEN: * Glimepiride 1 mg PO daily, metformin 1000 mg PO BID, sitagliptin 100 mg PO qAM * A1c = 7% (06/15/22) ASSESSMENT: * Anni is a 82 yo T2DM admitted for cellulitis, L toe diabetic ulcer. * Her home anti-diabetic agents are on hold. She received a total of 13 units of bolus insulin yesterday with fluctuating BSG control (141, 238, 150, 222 mg/dL). Will tighten correction factor and carb ratio. * Fasting BSG trending upward (141 -> 174 mg/dL) PLAN FOR INPATIENT GLYCEMIC CONTROL: * Hold outpatient oral diabetes medications * Basal insulin * Lantus 12 units SQ x 1 dose * Bolus insulin * NovoLog per scale ACHS or Q6hrs while NPO * Goal Range: Low 110 mg/dL - High 150 mg/dL * Correction Factor: 25 mg/dL/unit * Nutritional / Prandial insulin per carb ratio of 1 unit per 8 grams CHO consumed
--- NOTE | 2022-07-23 17:03 | Hospitalist Progress Note ---
Date of Service July 23, 2022 Assessment & Plan (1) Cellulitis of left foot: (2) Diabetic ulcer of toe of left foot: Plan: 82 y/o female with a hx of Parkinson disease with dementia, DM2 (last A1c on 07/04/22 was 7.0), prior TIA, HTN, hyperlipidemia, asthma/COPD, and CAD who presented to the ED with worsening left foot cellulitis after completing a 10 day course of Bactrim and new onset confusion today with progressive generalized weakness. Outpatient wound culture grew Corynebacterium striatum and Actinotignum schaalii, no sensitivities were done. Mental status has improved since receiving IVF hydration and IV antibiotics in the ED. Per sisters at bedside, she is essentially back to baseline. Initial lactate was 2.1, improved to 1.6 on recheck. Foot Xray showed No evidence of bony erosion is radiographically evident. received IV abx with ceftriaxone and doxycycline Currently on IV aztreonam/flagyl for anaerobic coverage Blood cx and foot cx showed no growth Podiatry on board recommended pressure reduction and Off-loading is a critical part of this patient's management. Wound care on board Consider to transition to oral antibiotic to complete a total course of 7 to 10 days Clinically improves (3) Acute metabolic encephalopathy: Plan: AMS due to the infection. CT head showed no acute finding No focal neuro deficit on exam Back to baseline (4) Generalized weakness: Plan: Fall precautions PT/OT (5) Diabetes mellitus, type II: Plan: Last A1c on 07/04/22 was 7.0 Blood sugar elevated above 300 today Continue to hold oral meds while inpatient Pharmacy on board for glycemic management Continue Insulin sliding scale and Lantus Continue monitor BS (6) Parkinson's disease: Plan: Continue outpatient regimen including Sinemet - timing clarified with sisters Continue aspiration precautions (7) Hypertension: Plan: Continue hydrochlorothiazide and losartan (8) Hyperlipidemia: Plan: Continue rosuvastatin (9) History of TIA (transient ischemic attack): Plan: Continue aspirin and statin (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: Plan: Continue inhaler Stable (11) CAD (coronary artery disease): Plan: Denies any chest pain Continue statin, aspirin and bisoprolol Plan Continue aspirin and statin DVT Prophylaxis: Lovenox Code status Full code Disposition Plan to discharge to rehab tomorrow Pt will need to follow-up with wound care Admission and Anticipated Discharge Date Admission Date: July 19, 2022 Subjective Pt was seen and examined for follow up Sitting in chair with no acute distress She is looking alot better today She is more awake and interactive today Denies any chest pain, palpitation, dizziness and SOB Review of Systems Review of Systems: All systems reviewed & are unremarkable except as noted in Subjective Physical Exam Physical Exam: General- No acute distress Head- atraumatic Eyes- PERRL, EOMI, ENT- oropharynx clear Neck- supple, no JVD Lungs- clear to auscultation Heart- regular rhythm; no murmur Abdomen- normal bowel sounds, soft, nontender Extremities- no calf tenderness, +LLE swollen, warm and erythema improves Neuro- alert, awake, PERRL, EOMI; no facial palsy; no dysarthria Skin- warm & dry Results & Data Results & Data Vital Signs (Past 12 Hours) Vital Signs Temp Pulse Resp BP Pulse Ox O2 Del Method 07/23/22 15:18 36.6 C 64 18 115/68 95 Room Air 07/23/22 07:30 Room Air 07/23/22 07:43 36.2 C L 61 18 158/72 H 96 Room Air 07/23/22 07:39 72 18 95 Room Air
[2022-07-23] MEDS: MIRABEGRON ER 25 MG TAB PO SCH (19:31)
[2022-07-23] MEDS: ROSUVASTATIN CALCIUM 5 MG TAB PO SCH (19:32)
[2022-07-24] MEDS: metroNIDAZOLE 500 MG/100 ML BAG IV SCH ×2 (03:13→11:49)
[2022-07-24] MEDS: AZTREONAM 1,000 MG in DEXTROSE 5% 100 ML IV SCH ×3 (04:12→13:20)
[2022-07-24] MEDS: ALBUTEROL HFA 8 GM INHALER INH SCH (07:25)
[2022-07-24 08:11] LABS: Hemoglobin 10.4 g/dl (12.0-16.0); Mean Corpuscular Hemoglobin 28.4 pg (25.0-34.0); Mean Corpuscular Hgb Conc 32.5 g/dL (32.0-36.0); Mean Corpuscular Volume 87.4 fL (80.0-100.0); Platelet Count 318 K/uL (130-400); RDW Coefficient of Variation 14.5 % (11.5-14.5); Red Blood Count 3.66 M/uL (4.20-5.40); White Blood Count 6.72 K/ul (4.8-10.8)
[2022-07-24 09:19] LABS: BUN Creatinine Ratio 22.5 (10-20); Calcium 8.9 mg/dl (8.6-10.3); Creatinine Clr Calc Pharmacy 54.7 ml/min; Est GFR (African American) 80.1 ml/min; Est GFR (Non-African American) 69.1 ml/min; Potassium 3.9 mmol/L (3.5-5.1)
[2022-07-24] MEDS: INSULIN ASPART PER UNIT CHARGE SC SCH ×2 (10:04→13:56)
[2022-07-24] MEDS: UMECLIDINIUM BROMIDE 62.5MCG/BLISTER 7 PUFFS/INHALER INH SCH (10:11)
[2022-07-24] MEDS: RIVASTIGMINE REMOVE SCH (10:14)
[2022-07-24] MEDS: CARBIDOPA/LEVODOPA 25/100MG TAB PO SCH ×2 (10:14→14:10)
[2022-07-24] MEDS: ASPIRIN 81 MG ECTAB PO SCH (10:16)
[2022-07-24] MEDS: DULoxetine HCL 30 MG CAP PO SCH (10:17)
[2022-07-24] MEDS: BISOPROLOL FUMARATE 5 MG TAB PO SCH (10:17)
--- NOTE | 2022-07-24 10:17 | Hospitalist Progress Note ---
Date of Service July 24, 2022 Assessment & Plan (1) Cellulitis of left foot: (2) Diabetic ulcer of toe of left foot: Plan: 82 y/o female with a hx of Parkinson disease with dementia, DM2 (last A1c on 07/04/22 was 7.0), prior TIA, HTN, hyperlipidemia, asthma/COPD, and CAD who presented to the ED with worsening left foot cellulitis after completing a 10 day course of Bactrim and new onset confusion with progressive generalized weakness. Outpatient wound culture grew Corynebacterium striatum and Actinotignum schaalii, no sensitivities were done. Mental status has improved since receiving IVF hydration and IV antibiotics in the ED. Per sisters at bedside, she is essentially back to baseline. Initial lactate was 2.1, improved to 1.6 on recheck. Foot Xray showed No evidence of bony erosion is radiographically evident. received IV abx with ceftriaxone and doxycycline Currently on IV aztreonam/flagyl for anaerobic coverage Blood cx and foot cx obtained - blood cultx - negat. in 48 hrs, follow up results. Foot cultx showed mixed noemi likely skin microbiota, gram posit. cocci Podiatry consulted - recommended pressure reduction and Off-loading is a critical part of this patient's management. Wound care consulted Clinically improved Will switch to PO Abx for DC (3) Acute metabolic encephalopathy: Plan: AMS due to the infection. CT head showed no acute finding No focal neuro deficit on exam Back to baseline (4) Generalized weakness: Plan: Fall precautions PT/OT (5) Diabetes mellitus, type II: Plan: Last A1c on 07/04/22 was 7.0 Continue to hold oral meds while inpatient Pharmacy on board for glycemic management Continue Insulin sliding scale and Lantus Continue monitor BS (6) Parkinson's disease: Plan: Continue outpatient regimen including Sinemet - timing clarified with sisters Continue aspiration precautions (7) Hypertension: Plan: Continue hydrochlorothiazide and losartan (8) Hyperlipidemia: Plan: Continue rosuvastatin (9) History of TIA (transient ischemic attack): Plan: Continue aspirin and statin (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: Plan: Continue inhaler Stable (11) CAD (coronary artery disease): Plan: Denies any chest pain Continue statin, aspirin and bisoprolol Plan Continue aspirin and statin DVT Prophylaxis: Lovenox Code status Full code Disposition Plan to discharge to rehab today Pt will need to follow-up with wound care Admission and Anticipated Discharge Date Admission Date: July 19, 2022 Subjective Pt seen in follow up of diabetic foot infection Sitting up in bed in no acute distress She is awake alert and cooperative Denies any complaints, denies any fever, chills, chest pain, shortness of breath, abd. pain, n/v or diarrhea Review of Systems Review of Systems: All systems reviewed & are unremarkable except as noted in Subjective Physical Exam Physical Exam: General- elderly F in no acute distress Head- atraumatic Eyes- PERRL, EOMI Neck- supple, no JVD Lungs- clear to auscultation Heart- regular rhythm; no murmur Abdomen- normal bowel sounds, soft, nontender Extremities- no calf tenderness, +Left foot wound warm and erythema improved Neuro- alert, awake, PERRL, EOMI; no facial palsy; no dysarthria, moves extremities Skin- warm & dry Results & Data Results & Data Vital Signs (Past 12 Hours) Vital Signs Temp Pulse Pulse Resp BP BP Pulse Ox 07/24/22 07:46 37.1 C 60 62 16 147/69 H 94 07/24/22 07:27 86 18 93 07/23/22 22:20 36.7 C 58 L 16 138/68 96 O2 Del Method 07/24/22 07:46 Room Air 07/24/22 07:27 Room Air 07/23/22 22:20 Room Air Laboratory Results 07/24/22 07/24/22 07/24/22 Range/Units 08:12 07:47 07:47 WBC 6.72 (4.8-10.8) K/ul RBC 3.66 L (4.20-5.40) M/uL Hgb 10.4 L (12.0-16.0) g/dl Hct 32.0 L (37.0-47.0) % MCV 87.4 (80.0-100.0) fL MCH 28.4 (25.0-34.0) pg MCHC 32.5 (32.0-36.0) g/dL RDW Std Deviation 47.0 H (36.4-46.3) fL RDW Coeff of Jayden 14.5 (11.5-14.5) % Plt Count 318 (130-400) K/uL MPV 9.0 L (9.4-12.4) fL Sodium 138 (136-145) mmol/L Potassium 3.9 (3.5-5.1) mmol/L Chloride 105 (98-107) mmol/L Carbon Dioxide 27 (21-32) mmol/L Anion Gap 6 (3-11) BUN 18 (6-23) mg/dl Creatinine 0.80 (0.6-1.2) mg/dl Est Cr Clr Drug Dosing 54.7 ml/min Est GFR ( Amer) 80.1 ml/min Est GFR (Non-Af Amer) 69.1 ml/min BUN/Creatinine Ratio 22.5 H (10-20) Glucose 145 H (70-99(Fasting)) mg/dl POC Glucose 138 H (70-99) mg/dl Calcium 8.9 (8.6-10.3) mg/dl 07/23/22 07/23/22 07/23/22 Range/Units 20:45 17:08 12:07 WBC (4.8-10.8) K/ul RBC (4.20-5.40) M/uL Hgb (12.0-16.0) g/dl Hct (37.0-47.0) % MCV (80.0-100.0) fL MCH (25.0-34.0) pg MCHC (32.0-36.0) g/dL RDW Std Deviation (36.4-46.3) fL RDW Coeff of Jayden (11.5-14.5) % Plt Count (130-400) K/uL MPV (9.4-12.4) fL Sodium (136-145) mmol/L Potassium (3.5-5.1) mmol/L Chloride (98-107) mmol/L Carbon Dioxide (21-32) mmol/L Anion Gap (3-11) BUN (6-23) mg/dl Creatinine (0.6-1.2) mg/dl Est Cr Clr Drug Dosing ml/min Est GFR ( Amer) ml/min Est GFR (Non-Af Amer) ml/min BUN/Creatinine Ratio (10-20) Glucose (70-99(Fasting)) mg/dl POC Glucose 102 H 127 H 312 H* (70-99) mg/dl Calcium (8.6-10.3) mg/dl Medications Administered Current Inpatient Medications Acetaminophen (Acetaminophen 500 Mg Tab) 1,000 mg PO Q8H PRN PRN Reason: Pain or Fever Stop: 08/18/22 19:17 Last Admin: 07/23/22 13:07 Dose: 1,000 mg Albuterol (Albuterol Hfa 8 Gm Inhaler) 2 puffs INH BID ROXANNE Stop: 08/18/22 20:59 Last Admin: 07/24/22 07:25 Dose: 2 puffs Aspirin (Aspirin 81 Mg Ectab) 81 mg PO QAM ROXANNE Stop: 08/19/22 08:59 Last Admin: 07/23/22 08:55 Dose: 81 mg Bisoprolol Fumarate (Bisoprolol Fumarate 5 Mg Tab) 5 mg PO DAILY ROXANNE Stop: 08/19/22 08:59 Last Admin: 07/23/22 08:54 Dose: 5 mg Carbidopa/Levodopa (Carbidopa/Levodopa 25/100mg Tab) 1.5 tab PO TID@1200,1600,2000 [facility] Stop: 08/18/22 19:59 Last Admin: 07/23/22 19:29 Dose: 1.5 tab Carbidopa/Levodopa (Carbidopa/Levodopa 25/100mg Tab) 2 tab PO DAILY@0800 [facility] Stop: 08/19/22 07:59 Last Admin: 07/23/22 08:54 Dose: 2 tab Dextrose (Dextrose 50% 50 Ml Syringe) 25 - 50 ml IV UD PRN; Protocol PRN Reason: Hypoglycemia Protocol Stop: 08/18/22 17:54 Duloxetine HCl (Duloxetine Hcl 30 Mg Cap) 30 mg PO AMHS [facility] Stop: 08/18/22 20:59 Last Admin: 07/23/22 19:31 Dose: 30 mg Enoxaparin Sodium (Enoxaparin Inj 40 Mg/0.4 Ml Syr) 40 mg SQ QAM ROXANNE Stop: 08/19/22 08:59 Last Admin: 07/23/22 08:56 Dose: 40 mg Fluticasone/Vilanterol (Fluticasone/Vilanterol 200/25mcg 14 Puffs/Inhaler) 1 puffs INH DAILY ROXANNE Stop: 08/19/22 08:59 Last Admin: 07/23/22 08:57 Dose: 1 puffs Glucagon (Glucagon For Inj 1 Mg Vial) 1 mg SQ UD PRN; Protocol PRN Reason: Hypoglycemia Protocol Stop: 08/18/22 17:54 Glucose (Glucose 10 Tab/Tube) 4 - 8 tab PO UD PRN; Protocol PRN Reason: Hypoglycemia Treatment Stop: 08/18/22 17:54 Glucose (Glucose 40% Gel 15 Gm Tube) 15 - 30 gm PO UD PRN; Protocol PRN Reason: Hypoglycemia Protocol Stop: 08/18/22 17:54 Hydrochlorothiazide (Hydrochlorothiazide 25 Mg Tab) 6.25 mg PO DAILY ROXANNE Stop: 08/19/22 08:59 Last Admin: 07/23/22 08:54 Dose: 6.25 mg Metronidazole (Flagyl) 500 mg in 100 mls @ 100 mls/hr IV Q8H [facility] Stop: 07/26/22 18:29 Last Infusion: 07/24/22 04:50 Dose: Infused Aztreonam 1,000 mg/ Dextrose 110 mls @ 100 mls/hr IV Q8H [facility]; Protocol Stop: 07/26/22 19:44 Last Infusion: 07/24/22 06:05 Dose: Infused Insulin Aspart (Insulin Aspart Per Unit Charge) 0 units SC ACHS ROXANNE Stop: 08/21/22 11:29 Last Admin: 07/24/22 10:04 Dose: 4 units Insulin Glargine (Lantus Per Unit Charge) 12 units SQ ONE ONE Stop: 07/24/22 14:01 Losartan Potassium (Losartan Potassium 25 Mg Tab) 25 mg PO BID [facility] Stop: 08/18/22 20:59 Last Admin: 07/23/22 19:32 Dose: 25 mg Melatonin (Melatonin 3 Mg Tab) 3 mg PO HS PRN PRN Reason: Sleep Stop: 08/20/22 17:11 Mirabegron (Mirabegron Er 25 Mg Tab) 50 mg PO QPM ROXANNE Stop: 08/18/22 20:59 Last Admin: 07/23/22 19:31 Dose: 50 mg Miscellaneous (Carbohydrates For Hypoglycemia ) 15 - 30 gm PO UD PRN PRN Reason: Hypoglycemia Protocol Stop: 08/18/22 17:54 Miscellaneous (Rivastigmine ~ Remove Patch) 1 each N/A DAILY@0859 [facility] Stop: 08/21/22 08:58 Last Admin: 07/23/22 08:56 Dose: 1 each Miscellaneous Information (Pharmacy Glycemic Mgmt Consult) 1 each N/A UD PRN; Protocol PRN Reason: Consult Stop: 08/22/22 13:22 Pyridoxine HCl (Pyridoxine Hcl 50 Mg Tab) 50 mg PO DAILYBL [facility] Stop: 08/19/22 10:29 Last Admin: 07/23/22 10:52 Dose: 50 mg Rivastigmine (Rivastigmine Patch) 1 patch TD DAILY [facility] Stop: 08/20/22 08:59 Last Admin: 07/23/22 08:55 Dose: 1 patch Rosuvastatin Calcium (Rosuvastatin Calcium 5 Mg Tab) 5 mg PO QPM [facility] Stop: 08/18/22 20:59 Last Admin: 07/23/22 19:32 Dose: 5 mg Senna/Docusate Sodium (Docusate Sodium/Senna 50/8.6mg Tab) 1 tab PO DAILY PRN PRN Reason: Constipation Stop: 08/18/22 17:54 Umeclidinium [place] (Umeclidinium [place] 62.5mcg/Blister 7 Puffs/Inhaler) 1 puffs INH QAM [facility] Stop: 08/19/22 08:59 Last Admin: 07/23/22 08:57 Dose: 1 puffs
[2022-07-24] MEDS: FLUTICASONE/VILANTEROL 200/25MCG 14 PUFFS/INHALER INH SCH (10:18)
[2022-07-24] MEDS: ENOXAPARIN INJ 40 MG/0.4 ML SYR SQ SCH (10:18)
[2022-07-24] MEDS: hydroCHLOROthiazide 25 MG TAB PO SCH (10:19)
[2022-07-24] MEDS: LOSARTAN POTASSIUM 25 MG TAB PO SCH (10:20)
[2022-07-24] MEDS: RIVASTIGMINE PATCH TD SCH (10:21)
--- NOTE | 2022-07-24 10:38 | Discharge Summary ---
Date of Service July 24, 2022 Admission HPI Per Admitting Provider This is an 82 y/o female with a PMH of Parkinson disease with associated dementia, DM2, HTN, prior TIA, CAD, asthma/COPD, anxiety, hyperlipidemia, and GERD presents to the ED today with worsening of left foot infection, confusion, and progressive weakness. History is obtained from patient and from her two sisters at bedside, with whom she is currently staying. On 07/04/22, pt was seen in PCP office and diagnosed with left foot cellulitis and diabetic foot ulcer between 1st and 2nd toe. She was given a 10 day course of Bactrim and referred to wound care. Wound culture collected at that visit showed Corynebacterium striatum an Actinotignum schaalii. She has not yet seen wound care but has an appt in 10 days. She completed the course of Bactrim as prescribed. The redness in her foot significantly improved with only residual redness in her left 2nd toe. The left foot swelling was stable. However, since finishing the Bactrim 3-4 days ago, they have noted worsening redness, which is now streaking up her left leg. Swelling is stable. Denies pain at rest but movement of the toes causes pain. Typically, pt ambulates with a walker but over the last day she has been essentially confined to her bed due to weakness. This morning, her sisters noted confusion, lethargy and dysarthria. They were concerned she may be having a stroke so they brought her to the ED. Since being in the ED, she has received 1000 ml NSS, ceftriaxone, and doxycycline with improvement in her mental status. She is now more awake and answering questions near her baseline. Her sister checks her sugars and states that they have not been more elevated than usual (none >200). Admission Exam Per Admitting Provider Constitutional: well developed and well nourished; no acute distress Eyes: PERRL, conjunctivae normal, anicteric sclerae ENMT: external ear and nose normal, oropharynx normal Neck: trachea midline Respiratory: no respiratory distress and no labored breathing Auscultation: lungs clear to auscultation bilaterally; no rales, no rhonchi and no wheezes Cardiovascular: Rate/Rhythm: regular rate and regular rhythm Gastrointestinal (Abdomen): Inspection/Auscultation: normal bowel sounds; abdomen not distended Percussion/Palpation: abdomen soft; abdomen nontender Musculoskeletal: rigidity and mild cogwheeling with wrist ROM, ux engineer strength equal, no resting tremor noted tender to movement of left 1st and 2nd toe, distal foot Skin: ulcer between left 1st and 2nd toe - associated erythema of dorsal left foot with streak of erythema extending up left leg to just below knee, mild associated warmth Neurologic: moves all extremities Speech / Cognition: no expressive aphasia Psychiatric: Orientation: alert and oriented x 3 Affect: + blunted affect Principal Diagnosis Metabolic encephalopathy Left foot cellulitis/ diabetic foot infection Discharge Exam General- elderly F in no acute distress Head- atraumatic Eyes- PERRL, EOMI Neck- supple, no JVD Lungs- clear to auscultation Heart- regular rhythm; no murmur Abdomen- normal bowel sounds, soft, nontender Extremities- no calf tenderness, +Left foot wound warm and erythema improved Neuro- alert, awake, PERRL, EOMI; no facial palsy; no dysarthria, moves extremities Skin- warm & dry Discharge Data Allergies Allergy/AdvReac Type Severity Reaction Status Date / Time fluconazole Allergy Severe hives,rash,respiratory Unverified 07/19/22 16:16 difficulty hydrochlorothiazide Allergy Severe Rash Unverified 07/19/22 16:16 triamterene Allergy Severe Rash Unverified 07/19/22 16:16 erythromycin base Allergy Intermediate n/a, rash Unverified 07/19/22 16:16 isosorbide Allergy Intermediate head Unverified 07/19/22 16:16 NSAIDS (Non-Steroidal Allergy Intermediate hives,rash Unverified 07/19/22 16:16 Anti-Inflamma amifostine Allergy Unknown Unverified 07/19/22 16:16 fluticasone Allergy Unknown Unverified 07/19/22 16:16 lisinopril Allergy Unknown Unverified 07/19/22 16:16 Penicillins Allergy Unknown Unverified 07/19/22 16:16 ethyl alcohol AdvReac Unknown Unverified 07/19/22 16:16 Consultations 07/19/22 16:00 ED Decision to Admit Stat 07/19/22 21:04 Consult Podiatry Routine Ordered Studies 07/19/22 13:41 CT head/brain wo con Stat IMPRESSION: No acute intracranial findings. No change in appearance of the brain. Hospital Course (1) Cellulitis of left foot: (2) Diabetic ulcer of toe of left foot: 82 y/o female with a hx of Parkinson disease with dementia, DM2 (last A1c on 07/04/22 was 7.0), prior TIA, HTN, hyperlipidemia, asthma/COPD, and CAD who presented to the ED with worsening left foot cellulitis after completing a 10 day course of Bactrim and new onset confusion with progressive generalized weakness. Outpatient wound culture grew Corynebacterium striatum and Actinotignum schaalii, no sensitivities were done. Mental status has improved since receiving IVF hydration and IV antibiotics in the ED. Per sisters at bedside, she is essentially back to baseline. Initial lactate was 2.1, improved to 1.6 on recheck. Foot Xray showed No evidence of bony erosion is radiographically evident. received IV abx with ceftriaxone and doxycycline Currently on IV aztreonam/flagyl for anaerobic coverage Blood cx and foot cx obtained - blood cultx - negat. in 48 hrs, follow up results. Foot cultx showed mixed noemi likely skin microbiota, gram posit. cocci Podiatry consulted - recommended pressure reduction and Off-loading is a critical part of this patient's management. Wound care consulted Clinically improved Will switch to PO Abx for DC (3) Acute metabolic encephalopathy: AMS due to the infection. CT head showed no acute finding No focal neuro deficit on exam Back to baseline (4) Generalized weakness: Fall precautions PT/OT (5) Diabetes mellitus, type II: Last A1c on 07/04/22 was 7.0 Continue to hold oral meds while inpatient Pharmacy on board for glycemic management Continue Insulin sliding scale and Lantus Continue monitor BS (6) Parkinson's disease: Continue outpatient regimen including Sinemet - timing clarified with sisters Continue aspiration precautions (7) Hypertension: Continue hydrochlorothiazide and losartan (8) Hyperlipidemia: Continue rosuvastatin (9) History of TIA (transient ischemic attack): Continue aspirin and statin (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: Continue inhaler Stable (11) CAD (coronary artery disease): Denies any chest pain Continue statin, aspirin and bisoprolol Plan Continue aspirin and statin Disposition Plan to discharge to rehab today Pt will need to follow-up with wound care Total Time Total Time Spent Total Time Spent (In Minutes): 40 Discharge Plan Discharge Items Patient Disposition: Transfer Inpatient Rehab Fac Reason For Visit: LEFT FOOT CELLULITIS, CONFUSION Discharge Diagnosis: Metabolic encephalopathy Left foot cellulitis/ diabetic foot infection Activity: Per Instructions section Non-emergency contact: Primary Care Provider Call non-emergency contact if: you have any medication questions and your symptoms worsen Follow-up/Referrals: Jag Stover MD [Primary Care Provider] - Diet: Carb Consistent or DM2 and Heart Healthy Addtl Attending Provider Instructions: Follow-up closely with wound care, to ensure that your left foot wound is healing properly. Finish antibiotic treatment as prescribed, with cefdinir and Flagyl. Recommend taking probiotics, while on antibiotic, to prevent any stomach upsets. Addtl Kitchen Lead Provider Instructions: Per podiatry: Wound cleansed with betadine followed by normal saline. Application of 4x4 gauze first interspace left foot for offloading of wound.Continue daily dressing changes. To offload or remove pressure to the wound is essential. Pending Studies at Discharge: Yes Studies:: final blood cultx results Stand-Alone Forms: My [facility] Skilled Items Patient informed of condition?: Yes DNR: No Discharge Level of Care: Acute rehab Communicable Disease: No Discharge Prognosis: Stable Lines: None Urinary Catheter: No Medications and DC Order Prescriptions: New cefdinir 300 mg capsule 300 mg PO BID 4 Days Qty: 8 0RF metronidazole 500 mg tablet 500 mg PO TID 4 Days Qty: 12 0RF Advanced Probiotic 625 mg (10 billion cell) Capsule 2 cap PO DAILY 5 Days Qty: 10 0RF Continued rosuvastatin 5 mg tablet 5 mg PO QPM budesonide-formoterol 160-4.5 mcg/actuation HFA aerosol inhaler 2 puff INHALATION BID aspirin 81 mg Tablet,Delayed Release (Dr/Ec) 81 mg PO QAM bisoprolol-hydrochlorothiazide 5-6.25 mg tablet 1 tab PO DAILY Myrbetriq 50 mg tablet extended release 24 hr 50 mg PO QPM Januvia 100 mg tablet 100 mg PO QAM pyridoxine (vitamin B6) [Vitamin B-6] 50 mg Tablet 50 mg PO DAILYBL coenzyme Q10 [Co Q-10] 200 mg Capsule 200 mg PO DAILY sennosides-docusate sodium [Senokot-S] 8.6-50 mg Tablet 1 tab-cap PO DAILY PRN (Reason: Constipation) Rx Instructions: GIVE @ LUNCH metformin 1,000 mg tablet 1,000 mg PO BID losartan 25 mg tablet 25 mg PO BID nitroglycerin [Nitrostat] 0.4 mg Tablet, Sublingual 0.5 mg sublingual .Q5MIN PRN (Reason: Chest Pain) albuterol sulfate 90 mcg/actuation HFA aerosol inhaler 2 puff INHALATION BID duloxetine 30 mg capsule,delayed release(DR/EC) 30 mg PO AMHS rivastigmine 9.5 mg/24 hour patch 24 hour 1 patch topical .Q24HR Rx Instructions: REMOVE OLD PATH BEFORE REPLACING NEW ONE. Incruse Ellipta 62.5 mcg/actuation blister with device 1 inh INHALATION QAM glimepiride 1 mg Tablet 1 mg PO DAILY carbidopa-levodopa 25-100 mg tablet See Rx Instructions .ROUTE .COMPLEX Rx Instructions: 2 tab at 8 am, 1.5 tab at 12 pm, 1.5 tab at 4 pm, 1.5 tab at 8 pm Discharge Orders: Discharge Order (Routine); Ordered 07/24/22 Ordered By: Kyle Schwartz Admission Data Admit Date/Time: 07/19/22 17:15 Attending Provider: Kyle Schwartz Admit Provider: Oneida Holloway Primary Care Provider: Jag Stover Other Providers: Oneida Holloway ; Case Valencia ; [facility] ; Imer Bernal
[2022-07-24] MEDS ORDERED: ADVANCED PROBIOTIC 1250 MG CAPSULE PO SCH (10:45)
[2022-07-24] MEDS: PYRIDOXINE HCL 50 MG TAB PO SCH (11:08)
[2022-07-24] MEDS ORDERED: LANTUS PER UNIT CHARGE SQ ONE (14:00)
== END 2022-07-24 17:00 | DRG 637 ==
LOC: ED 12:59 → SUATTDRO 17:15 → 3W 17:15

== ENCOUNTER 2022-09-07 10:27 | Inpatient (IN) ==
[2022-09-07 10:58] LABS: Basophils # (auto) 0.03 K/uL (0-0.2); Basophils % (auto) 0.5 %; Eosinophils # (auto) 0.17 K/uL (0-0.50); Eosinophils % (auto) 2.7 %; Hematocrit (blood only) 36.4 % (37.0-47.0); Hemoglobin 11.7 g/dl (12.0-16.0); Immature Granulocytes # (auto) 0.02 K/uL (0.01-0.20); Immature Granulocytes % (auto) 0.3 %; Lymphocytes # (auto) 1.63 K/uL (1.2-3.4); Lymphocytes % (auto) 26.1 %; Mean Corpuscular Hemoglobin 28.7 pg (25.0-34.0); Mean Corpuscular Hgb Conc 32.1 g/dL (32.0-36.0); Mean Corpuscular Volume 89.4 fL (80.0-100.0); Mean Platelet Volume 9.4 fL (9.4-12.4); Monocytes # (auto) 0.49 K/uL (0.11-0.59); Monocytes % (auto) 7.9 %; Neutrophils % (auto) 62.5 %; Platelet Count 298 K/uL (130-400); RDW Coefficient of Variation 15.6 % (11.5-14.5); RDW Standard Deviation 51.1 fL (36.4-46.3); Red Blood Count 4.07 M/uL (4.20-5.40); White Blood Count 6.24 K/ul (4.8-10.8)
[2022-09-07 11:04] LABS: Appearance Urine Clear (Clear); Bacteria Urine Automated 1+ (Negative); Bilirubin Urine Negative (Negative); Blood Urine Negative (Negative); Cast Urine Automated 0 /lpf (0-5); Color Urine Yellow; Glucose Urine UA Negative (Negative); Ketones Urine Negative (Negative); Leukocyte Esterase Urine Trace (Negative); Nitrite Urine Negative (Negative); Protein Urine Negative (Negative); RBC Urine Automated 0-4 /hpf (0-4); Specific Gravity Urine 1.012 (1.000-1.030); Urobilinogen Urine Negative (Negative)
--- NOTE | 2022-09-07 11:15 | CT Scan Report ---
CT head/brain wo con CLINICAL HISTORY: confusion, weakness, fall Technique: Contiguous axial CT images of the head were acquired from the base of the skull to the deven malorie without intravenous contrast administration. Images were viewed in brain, subdural and bone [facility]. Automated dose lowering techniques and/or adjustment according to patient size were utilized for this exam. Comparison: None available at the time of this dictation. Findings: Areas of decreased attenuation are present in the periventricular and subcortical white matter bilate rally consistent with small vessel ischemic disease. Generalized cerebral atrophy with commensurate e nlargement of the ventricles, sulci, and cisterns is also present. There is no acute intracranial hem orrhage or evidence of acute territorial infarction. No shift of the midline structures, mass effect, or extra-axial abnormalities are shown. Atherosclerotic calcifications are present in the intracran ial segments of the internal carotid arteries. Imaged portions of the paranasal sinuses and mastoid air cells are clear. The orbits appear normal. There are no acute fractures of the calvaria or scalp swelling. Impression: No acute intracranial hemorrhage, no evidence of acute territorial infarction or other acute intracra nial disease process. ACT 112: Negative or not required by law. Electronically signed by: Teddy aOkes M.D. 09/07/2022 11:13 AM
[2022-09-07] MEDS: SODIUM CHLORIDE 0.9% 1000ML 1,000 ML IV SCH ×2 (11:16→22:19)
[2022-09-07 11:18] LABS: Alanine Aminotransferase 13 U/L (7-52); Albumin Globulin Ratio 1.7 (0.9-2); Albumin Level 3.8 gm/dl (3.4-5.0); Alkaline Phosphatase 48 U/L (34-104); Anion Gap 5 (3-11); Aspartate Aminotransferase 16 U/L (13-39); BUN Creatinine Ratio 19.1 (10-20); Bilirubin,Total 0.5 mg/dl (0.2-1.0); Blood Urea Nitrogen 13 mg/dl (6-23); Calcium 9.1 mg/dl (8.6-10.3); Carbon Dioxide 29 mmol/L (21-32); Chloride 107 mmol/L (98-107); Est GFR (African American) 95.1 ml/min; Globulin 2.3 gm/dl (2.5-4.0); Glucose 129 mg/dl (70-99(Fasting)); Lipase 30 U/L (11-82); Magnesium 1.8 mg/dl (1.7-2.4); Potassium 4.4 mmol/L (3.5-5.1); Sodium 141 mmol/L (136-145); Total Protein 6.1 gm/dl (6.0-8.3)
--- NOTE | 2022-09-07 11:20 | CT Scan Report ---
CT cervical spine wo con CLINICAL HISTORY: fall TECHNIQUE: Multidetector row helical CT of the cervical spine was performed without administration of intravenous contrast. Coronal and sagittal reformations were obtained. Automated dose lowering techn iques and/or adjustment according to patient size were utilized for this exam. Comparison: None available at the time of this dictation. FINDINGS: No acute fractures or subluxations are identified. Degenerative changes are seen in the visualized sp ine. The alignment is normal. Heterogeneous enlarged thyroid is noted. IMPRESSION: Degenerative changes without evidence of acute bony injury. ACT 112: Negative or not required by law. Electronically signed by: Teddy Oakes M.D. 09/07/2022 11:18 AM
[2022-09-07 11:23] LABS: Troponin I High Sensitivity 5.7 pg/ml (0-14)
[2022-09-07 11:36] LABS: Prothrombin Time 10.9 Seconds (9.0-12.0)
--- NOTE | 2022-09-07 12:00 | XRay Report ---
XR chest 1V portable CLINICAL HISTORY: fall TECHNIQUE: Single frontal radiograph of the chest was obtained. Comparison: Comparison is made to chest radiograph 07/19/2022 FINDINGS: No lines and tubes are seen. Calcified aortic knob is seen. The lungs are clear. No evidence of pleur al effusion or pneumothorax. IMPRESSION: No acute chest disease. ACT 112: Negative or not required by law. Electronically signed by: Teddy Oakes M.D. 09/07/2022 11:58 AM
--- NOTE | 2022-09-07 12:04 | XRay Report ---
XR pelvis 1-2V routine CLINICAL HISTORY: fall TECHNIQUE: A single frontal view of the pelvis was obtained. Comparison: Comparison is made to pelvis radiograph 04/13/2023 FINDINGS: There is no evidence of an acute fracture. Degenerative changes are seen in the hip joints and lumbar spine. No soft tissue abnormality is seen. IMPRESSION: Degenerative changes without evidence of acute abnormality. ACT 112: Negative or not required by law. Electronically signed by: Teddy Oakes M.D. 09/07/2022 12:02 PM
[2022-09-07] MEDS ORDERED: LOSARTAN POTASSIUM 25 MG TAB PO STA (13:37)
--- NOTE | 2022-09-07 13:48 | Emergency Department Note ---
Impression & Plan Altered mental status, Generalized weakness ED Provider Note ED Provider Note NAME: AISHA BENITEZ AGE:82 SEX: Female : 1940 ARRIVES VIA: EMS INFORMANT: Patient ED PROVIDER(s): Annmarie Calderon DO CHIEF COMPLAINT: Altered mental status, weakness HPI: This is an 82-year-old female brought in by EMS due to family concern for altered mental status and weakness. Patient is cared for by her 2 sisters. Patient unable to get up off the toilet this morning and was very difficult to arouse according to EMS. Vital signs stable in route. PAST MEDICAL HISTORY:See Below PAST SURGICAL HISTORY:See Below FAMILY HISTORY:See Below SOCIAL HISTORY:See Below HOME MEDICATIONS:See Below ALLERGIES:See Below VITALS:See Below PHYSICAL EXAMINATION: GENERAL: alert, well appearing, well nourished, no distress, non-toxic EYE EXAM: normal conjunctiva, PERRL and EOM's grossly intact OROPHARYNX: no exudate, no erythema, lips, buccal mucosa, and tongue normal and mucous membranes are moist NECK: supple, no nuchal rigidity, no adenopathy, non-tender LUNGS: Clear to auscultation. Normal chest wall mechanics, no w/r/r HEART: no murmurs, S1 normal and S2 normal ABDOMEN: abdomen soft, non-tender, normo-active bowel sounds, no masses, no rebound or guarding. BACK: Back is symmetrical on inspection and there is no deformity, no midline tenderness, no CVA tenderness. SKIN: no rashes, petechiae, orbruising UPPER EXTREMITIES: upper extremities are grossly normal. FROM, nml pulses b/l. LOWER EXTREMITIES: No pitting edema. FROM, nml pulses b/l. NEURO EXAM: Pleasantly confused, cranial nerves II-XII grossly intact, normal speech, no facial droop,nogross weakness of arms, no gross weakness of legs. Gross sensation intact. No ataxia. Vital Signs: reviewed and remarkable Differential Diagnosis: CVA, ICH, dysrhythmia, RAMONA, electrolyte abnormality, UTI, pneumonia, aspiration, medication ADR, worsening Parkinson's, as well as others were concern MEDICAL DECISION MAKING: This is an 82-year-old female who presents from home with family who care for her due to concern for increased confusion/unresponsive episode this morning as well as increased generalized weakness. Labs drawn and sent, IV established, EK G and chest x-ray performed at bedside and interpreted by me and patient placed on telemetry. Urine collected additionally. Patient's labs and imaging were reassuring. This was discussed with her 2 sisters who are her caregivers at bedside additionally. We discussed possible differential diagnosis. While they state patient seems improved at this time she is still markedly weak and was unable to transfer here. They are concerned for TIA or other worsening symptoms of her Parkinson's. No evidence of obvious infection at this time. No dysrhythmia noted on telemetry. Case discussed with the hospitalist for additional evaluation and management. Consultation(s): Discussed with [facility] service. ER Treatment Provided: See below 1312: Discussed results with 2 sisters who are now present at bedside. They state they wanted to wake the patient up this morning and could not even after 45 minutes of trying. They state this is never happened before. They states eventually it took both of them to get her into the bathroom and she was very weak and wobbly and then could not get up off the toilet. They deny any recent illness, no recent change in her medications. They deny any prior similar episodes. They states she seemed in her normal/usual state of health yesterday including last night at bedtime. Diagnostics Interpreted By Me: -ECG: Normal sinus at 64, normal axis, normal intervals, no acute ST/T wave change -Cardiac Monitoring: An order was placed for continuous cardiac monitoring. The monitor shows a rate of 77 with normal sinus rhythm. -Laboratory studies: As stated above and show below. -Imaging studies: X-ray Chest: A single view study of the chest was reviewed and was negative for cardiomegaly, focal infiltrate, effusion, pulmonary edema, or wide mediastinum. Triage Nursing Note Reviewed Prior/Outside Records Reviewed Past Med/Surg History Medical History Anxiety Asthma CAD (coronary artery disease) COPD (chronic obstructive pulmonary disease) COVID-19 Delirium Dementia Diabetes mellitus, type II Generalized weakness GERD (gastroesophageal reflux disease) History of TIA (transient ischemic attack) Hyperlipidemia Hypertension Multiple fractures of ribs of left side Parkinson's disease Transient confusion Surgical History Hx of appendectomy S/P cholecystectomy Stented coronary artery Family History Other Diabetes Heart disease Hypertension Social History Smoking Status: Never smoker Tobacco Type: Cigarettes Cigarettes Per Day: 1 pack/day; Second Hand Exposure: No; Do You Dip or Chew Tobacco: No; Hx Alcohol Use: No Hx Substance Use: No Preferred Language: Andorran Communication Ability: Effective Communication Ability Comment: memory loss, confusion at times Visual Impairment: Limited Hearing Ability: Normal Office Helper Clerical Required: No Beliefs That Will Affect Care: None marital status: / Current Living Situation: Family Current Living Situation Comment: One story home with sisters current occupational status: retired 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[place], [place] How many Children do You have: 0 Feels Safe at Home: Yes Diet: regular caffeine: Yes (rare) during the past year weight has: remained stable Assistive Devices: Bedside Commode and Walker Allergies Allergies Allergy/AdvReac Type Severity Reaction Status Date / Time fluconazole Allergy Severe hives,rash,respiratory Verified 09/07/22 15:16 difficulty hydrochlorothiazide Allergy Severe Rash Verified 09/07/22 15:16 triamterene Allergy Severe Rash Verified 09/07/22 15:16 erythromycin base Allergy Intermediate n/a, rash Verified 09/07/22 15:16 isosorbide Allergy Intermediate head Verified 09/07/22 15:16 NSAIDS (Non-Steroidal Allergy Intermediate hives,rash Verified 09/07/22 15:16 Anti-Inflamma amifostine Allergy Unknown Unknown Verified 09/07/22 15:16 fluticasone Allergy Unknown Unknown Verified 09/07/22 15:16 lisinopril Allergy Unknown Unknown Verified 09/07/22 15:16 Penicillins Allergy Unknown Unknown Verified 09/07/22 15:16 ethyl alcohol AdvReac Unknown Unknown Verified 09/07/22 15:16 Home Meds Home Medications Medication Instructions Recorded Confirmed albuterol sulfate 90 mcg/actuation 2 puff inhalation BID 02/06/22 09/07/22 aerosol inhaler carbidopa 25 mg-levodopa 100 mg See Rx Instructions .Route .COMPLEX 02/06/22 09/07/22 tablet duloxetine 30 mg capsule,delayed 30 mg PO AMHS 02/06/22 09/07/22 release glimepiride 1 mg tablet 1 mg PO DAILY 02/06/22 09/07/22 losartan 25 mg tablet 25 mg PO QAM 02/06/22 09/07/22 metformin 1,000 mg tablet 1,000 mg PO BID 02/06/22 09/07/22 nitroglycerin 0.4 mg sublingual 0.5 mg sublingual .Q5MIN PRN Chest 02/06/22 09/07/22 tablet (Nitrostat) Pain rivastigmine 9.5 mg/24 hour 1 patch topical .Q24HR 02/06/22 09/07/22 transdermal patch umeclidinium 62.5 mcg/actuation 1 inh inhalation QAM 02/06/22 09/07/22 blister powder for inhalation (Incruse Ellipta) aspirin 81 mg tablet,delayed 81 mg PO QAM 06/15/22 09/07/22 release budesonide-formoterol HFA 160 2 puff inhalation BID 06/15/22 09/07/22 mcg-4.5 mcg/actuation aerosol inhaler rosuvastatin 5 mg tablet 5 mg PO QAM 06/15/22 09/07/22 bisoprolol 5 1 tab PO DAILY 07/19/22 09/07/22 mg-hydrochlorothiazide 6.25 mg tablet mirabegron 50 mg tablet,extended 50 mg PO QAM 07/19/22 09/07/22 release 24 hr (Myrbetriq) sitagliptin phosphate 100 mg 100 mg PO QAM 07/19/22 09/07/22 tablet (Januvia) codeine 10 mg-guaifenesin 100 mg/5 5 ml PO Q4H PRN Cough 09/07/22 09/07/22 mL oral liquid Results & Data (ED) Vital Signs Vital Signs - 24 hr 09/07/22 10:16 09/07/22 11:04 09/07/22 11:16 Temperature 36.7 C Temperature Source Oral Pulse Rate 78 Pulse Rate [Left Apical] 60 Pulse Rhythm Regular Pulse Rhythm [Left Apical] Regular Pulse Strength Normal Pulse Strength [Left Apical] Normal Respiratory Rate 20 16 Respiratory Effort / Characteristics Non-Labored Spontaneous Non-Labored Spontaneous Respiratory Depth Normal Normal Blood Pressure 177/84 H Blood Pressure [Right Arm] 174/81 H Blood Pressure Mean 115 Blood Pressure Mean [Right Arm] 112 Pulse Oximetry 98 97 97 Oxygen Delivery Method Room Air Room Air Room Air Sepsis Recent Fever Within 48 Hours No Sepsis New/Unexplained Change in Mental Status No Sepsis Action Taken by Nursing No Action Required 09/07/22 12:16 09/07/22 12:29 09/07/22 13:15 Temperature Temperature Source Pulse Rate 65 Pulse Rate [Left Apical] 83 73 Pulse Rhythm Pulse Rhythm [Left Apical] Regular Pulse Strength Pulse Strength [Left Apical] Normal Normal Respiratory Rate 20 20 Respiratory Effort / Characteristics Non-Labored Spontaneous Non-Labored Spontaneous Respiratory Depth Normal Normal Blood Pressure Blood Pressure [Right Arm] 133/95 193/84 H Blood Pressure Mean Blood Pressure Mean [Right Arm] 107 120 Pulse Oximetry 99 97 Oxygen Delivery Method Room Air Room Air Sepsis Recent Fever Within 48 Hours Sepsis New/Unexplained Change in Mental Status Sepsis Action Taken by Nursing Laboratory Data 09/07/22 10:49 09/07/22 10:49 Lab Results 09/07/22 09/07/22 09/07/22 Range/Units 10:49 10:49 10:49 WBC 6.24 (4.8-10.8) K/ul RBC 4.07 L (4.20-5.40) M/uL Hgb 11.7 L (12.0-16.0) g/dl Hct 36.4 L (37.0-47.0) % MCV 89.4 (80.0-100.0) fL MCH 28.7 (25.0-34.0) pg MCHC 32.1 (32.0-36.0) g/dL RDW Std Deviation 51.1 H (36.4-46.3) fL RDW Coeff of Jayden 15.6 H (11.5-14.5) % Plt Count 298 (130-400) K/uL MPV 9.4 (9.4-12.4) fL Immature Gran % (Auto) 0.3 % Neut % (Auto) 62.5 % Lymph % (Auto) 26.1 % Mcintosh % (Auto) 7.9 % Eos % (Auto) 2.7 % Baso % (Auto) 0.5 % Neut # (Auto) 3.90 (1.40-6.50) K/uL Lymph # (Auto) 1.63 (1.2-3.4) K/uL Mcintosh # (Auto) 0.49 (0.11-0.59) K/uL Eos # (Auto) 0.17 (0-0.50) K/uL Baso # (Auto) 0.03 (0-0.2) K/uL Immature Gran # (Auto) 0.02 (0.01-0.20) K/uL PT 10.9 (9.0-12.0) Seconds INR 1.0 (0.9-1.1) Sodium 141 (136-145) mmol/L Potassium 4.4 (3.5-5.1) mmol/L Chloride 107 (98-107) mmol/L Carbon Dioxide 29 (21-32) mmol/L Anion Gap 5 (3-11) BUN 13 (6-23) mg/dl Creatinine 0.68 (0.6-1.2) mg/dl Est Cr Clr Drug Dosing Not Reportable Est GFR ( Amer) 95.1 ml/min Est GFR (Non-Af Amer) 82.0 ml/min BUN/Creatinine Ratio 19.1 (10-20) Glucose 129 H (70-99(Fasting)) mg/dl Calcium 9.1 (8.6-10.3) mg/dl Magnesium 1.8 (1.7-2.4) mg/dl Total Bilirubin 0.5 (0.2-1.0) mg/dl AST 16 (13-39) U/L ALT 13 (7-52) U/L Alkaline Phosphatase 48 (34-104) U/L Troponin I High Sens 5.7 (0-14) pg/ml Total Protein 6.1 (6.0-8.3) gm/dl Albumin 3.8 (3.4-5.0) gm/dl Globulin 2.3 L (2.5-4.0) gm/dl Albumin/Globulin Ratio 1.7 (0.9-2) Lipase 30 (11-82) U/L TSH (0.300-4.500) uIu/ml Urine Color Urine Appearance (Clear) Urine pH (4.5-7.5) Ur Specific [place] (1.000-1.030) Urine Protein (Negative) Urine Glucose (UA) (Negative) Urine Ketones (Negative) Urine Blood (Negative) Urine Nitrite (Negative) Urine Bilirubin (Negative) Urine Urobilinogen (Negative) Ur Leukocyte Esterase (Negative) Urine WBC (Auto) (0-5) /hpf Urine RBC (Auto) (0-4) /hpf U Hyaline Cast (Auto) (0-5) /lpf U Epithel Cells (Auto) (0-5) /lpf Urine Bacteria (Auto) (Negative) Ur Renal Epithelial Cell Adenovirus (PCR) (NotDetected) B. pertussis DNA (PCR) (NotDetected) B.parapertussis DNA PCR (NotDetected) C. pneumoniae DNA (PCR) (NotDetected) Coronavirus OC43 (PCR) (NotDetected) Coronavirus HKU1 (PCR) (NotDetected) Coronavirus 229E (PCR) (NotDetected) SARS-CoV-2 (PCR) (NotDetected) Coronavirus NL63 (PCR) (NotDetected) Human Metapneumovir PCR (NotDetected) Influenza Type A (PCR) (NotDetected) Influenza Type B (PCR) (NotDetected) M. pneumoniae (PCR) (NotDetected) Parainfluenza 1 (PCR) (NotDetected) Parainfluenza 2 (PCR) (NotDetected) Parainfluenza 3 (PCR) (NotDetected) Parainfluenza 4 (PCR) (NotDetected) RSV (PCR) (NotDetected) Entero/Rhino (PCR) (NotDetected) 09/07/22 09/07/22 09/07/22 Range/Units 10:49 10:52 13:11 WBC (4.8-10.8) K/ul RBC (4.20-5.40) M/uL Hgb (12.0-16.0) g/dl Hct (37.0-47.0) % MCV (80.0-100.0) fL MCH (25.0-34.0) pg MCHC (32.0-36.0) g/dL RDW Std Deviation (36.4-46.3) fL RDW Coeff of Jayden (11.5-14.5) % Plt Count (130-400) K/uL MPV (9.4-12.4) fL Immature Gran % (Auto) % Neut % (Auto) % Lymph % (Auto) % Mcintosh % (Auto) % Eos % (Auto) % Baso % (Auto) % Neut # (Auto) (1.40-6.50) K/uL Lymph # (Auto) (1.2-3.4) K/uL Mcintosh # (Auto) (0.11-0.59) K/uL Eos # (Auto) (0-0.50) K/uL Baso # (Auto) (0-0.2) K/uL Immature Gran # (Auto) (0.01-0.20) K/uL PT (9.0-12.0) Seconds INR (0.9-1.1) Sodium (136-145) mmol/L Potassium (3.5-5.1) mmol/L Chloride (98-107) mmol/L Carbon Dioxide (21-32) mmol/L Anion Gap (3-11) BUN (6-23) mg/dl Creatinine (0.6-1.2) mg/dl Est Cr Clr Drug Dosing Est GFR ( Amer) ml/min Est GFR (Non-Af Amer) ml/min BUN/Creatinine Ratio (10-20) Glucose (70-99(Fasting)) mg/dl Calcium (8.6-10.3) mg/dl Magnesium (1.7-2.4) mg/dl Total Bilirubin (0.2-1.0) mg/dl AST (13-39) U/L ALT (7-52) U/L Alkaline Phosphatase (34-104) U/L Troponin I High Sens (0-14) pg/ml Total Protein (6.0-8.3) gm/dl Albumin (3.4-5.0) gm/dl Globulin (2.5-4.0) gm/dl Albumin/Globulin Ratio (0.9-2) Lipase (11-82) U/L TSH 0.443 (0.300-4.500) uIu/ml Urine Color Yellow Urine Appearance Clear (Clear) Urine pH 7.0 (4.5-7.5) Ur Specific [place] 1.012 (1.000-1.030) Urine Protein Negative (Negative) Urine Glucose (UA) Negative (Negative) Urine Ketones Negative (Negative) Urine Blood Negative (Negative) Urine Nitrite Negative (Negative) Urine Bilirubin Negative (Negative) Urine Urobilinogen Negative (Negative) Ur Leukocyte Esterase Trace H (Negative) Urine WBC (Auto) 5-10 H (0-5) /hpf Urine RBC (Auto) 0-4 (0-4) /hpf U Hyaline Cast (Auto) 0 (0-5) /lpf U Epithel Cells (Auto) 5-10 H (0-5) /lpf Urine Bacteria (Auto) 1+ H (Negative) Ur Renal Epithelial Cell Not Reportable Adenovirus (PCR) Not Detected (NotDetected) B. pertussis DNA (PCR) Not Detected (NotDetected) B.parapertussis DNA PCR Not Detected (NotDetected) C. pneumoniae DNA (PCR) Not Detected (NotDetected) Coronavirus OC43 (PCR) Not Detected (NotDetected) Coronavirus HKU1 (PCR) Not Detected (NotDetected) Coronavirus 229E (PCR) Not Detected (NotDetected) SARS-CoV-2 (PCR) Not Detected (NotDetected) Coronavirus NL63 (PCR) Not Detected (NotDetected) Human Metapneumovir PCR Not Detected (NotDetected) Influenza Type A (PCR) Not Detected (NotDetected) Influenza Type B (PCR) Not Detected (NotDetected) M. pneumoniae (PCR) Not Detected (NotDetected) Parainfluenza 1 (PCR) Not Detected (NotDetected) Parainfluenza 2 (PCR) Not Detected (NotDetected) Parainfluenza 3 (PCR) Not Detected (NotDetected) Parainfluenza 4 (PCR) Not Detected (NotDetected) RSV (PCR) Not Detected (NotDetected) Entero/Rhino (PCR) Not Detected (NotDetected) Administered Medications Sodium Chloride (Nss 1000ml) 1,000 mls @ 125 mls/hr IV .Q8H ROXANNE Stop: 10/07/22 10:44 Last Admin: 09/07/22 11:16 Dose: 125 mls/hr Documented By: TW Discontinued Medications Losartan Potassium (Losartan Potassium 25 Mg Tab) 25 mg PO NOW STA Stop: 09/07/22 13:38 Last Admin: 09/07/22 14:59 Dose: 25 mg Documented By: AMS Imaging Data Radiologist's Impression: Cervical Spine CT 09/07/22 10:45 CT cervical spine wo con CLINICAL HISTORY: fall TECHNIQUE: Multidetector row helical CT of the cervical spine was performed without administration of intravenous contrast. Coronal and sagittal reformations were obtained. Automated dose lowering techniques and/or adjustment according to patient size were utilized for this exam. Comparison: None available at the time of this dictation. FINDINGS: No acute fractures or subluxations are identified. Degenerative changes are seen in the visualized spine. The alignment is normal. Heterogeneous enlarged thyroid is noted. IMPRESSION: Degenerative changes without evidence of acute bony injury. ACT 112: Negative or not required by law. Electronically signed by: Teddy Oakes M.D. 09/07/2022 11:18 AM Chest X-Ray 09/07/22 10:45 XR chest 1V portable CLINICAL HISTORY: fall TECHNIQUE: Single frontal radiograph of the chest was obtained. Comparison: Comparison is made to chest radiograph 07/19/2022 FINDINGS: No lines and tubes are seen. Calcified aortic knob is seen. The lungs are clear. No evidence of pleural effusion or pneumothorax. IMPRESSION: No acute chest disease. ACT 112: Negative or not required by law. Electronically signed by: Teddy Oakes M.D. 09/07/2022 11:[address] 09/07/22 10:45 CT head/brain wo con CLINICAL HISTORY: confusion, weakness, fall Technique: Contiguous axial CT images of the head were acquired from the base of the skull to the vertex without intravenous contrast administration. Images were viewed in brain, subdural and bone windows. Automated dose lowering techniques and/or adjustment according to patient size were utilized for this exam. Comparison: None available at the time of this dictation. Findings: Areas of decreased attenuation are present in the periventricular and subcortical white matter bilaterally consistent with small vessel ischemic di sease. Generalized cerebral atrophy with commensurate enlargement of the ventricles, sulci, and cisterns is also present. There is no acute intracranial hemorrhage or evidence of acute territorial infarction. No shift of the midline structures, mass effect, or extra-axial abnormalities are shown. A therosclerotic calcifications are present in the intracranial segments of the internal carotid arteries. Imaged portions of the paranasal sinuses and mastoid air cells are clear. The orbits appear normal. There are no acute fractures of the calvaria or scalp swelling. Impression: No acute intracranial hemorrhage, no evidence of acute territorial infarction or other acute intracranial disease process. ACT 112: Negative or not required by law. Electronically signed by: Teddy Oakes M.D. 09/07/2022 11:13 AM Pelvis X-Ray 09/07/22 10:45 XR pelvis 1-2V routine CLINICAL HISTORY: fall TECHNIQUE: A single frontal view of the pelvis was obtained. Comparison: Comparison is made to pelvis radiograph 04/13/2023 FINDINGS: There is no evidence of an acute fracture. Degenerative changes are seen in the hip joints and lumbar spine. No soft tissue abnormality is seen. IMPRESSION: Degenerative changes without evidence of acute abnormality. ACT 112: Negative or not required by law. Electronically signed by: Teddy Oakes M.D. 09/07/2022 12:02 PM Discharge Plan Visit Data Chief Complaint: Altered Mental Status Stated Complaint: CONFUSION ED Provider: Annmarie Calderon Discharge Problem: Altered mental status, Generalized weakness Forms Stand Alone Forms: [facility] Prescriptions Prescriptions: No Action rosuvastatin 5 mg tablet 5 mg PO QAM budesonide-formoterol 160-4.5 mcg/actuation HFA aerosol inhaler 2 puff INHALATION BID aspirin 81 mg Tablet,Delayed Release (Dr/Ec) 81 mg PO QAM bisoprolol-hydrochlorothiazide 5-6.25 mg tablet 1 tab PO DAILY Myrbetriq 50 mg tablet extended release 24 hr 50 mg PO QAM Januvia 100 mg tablet 100 mg PO QAM metformin 1,000 mg tablet 1,000 mg PO BID losartan 25 mg tablet 25 mg PO QAM nitroglycerin [Nitrostat] 0.4 mg Tablet, Sublingual 0.5 mg sublingual .Q5MIN PRN (Reason: Chest Pain) albuterol sulfate 90 mcg/actuation HFA aerosol inhaler 2 puff INHALATION BID duloxetine 30 mg capsule,delayed release(DR/EC) 30 mg PO AMHS rivastigmine 9.5 mg/24 hour patch 24 hour 1 patch topical .Q24HR Rx Instructions: REMOVE OLD PATH BEFORE REPLACING NEW ONE. Incruse Ellipta 62.5 mcg/actuation blister with device 1 inh INHALATION QAM glimepiride 1 mg Tablet 1 mg PO DAILY carbidopa-levodopa 25-100 mg tablet See Rx Instructions .ROUTE .COMPLEX Rx Instructions: 2 tab at 8 am, 1.5 tab at 12 pm, 1.5 tab at 8 pm codeine-guaifenesin 10-100 mg/5 mL Liquid 5 ml PO Q4H PRN (Reason: Cough) Referrals Referrals: Jag Stover MD [Primary Care Provider] -
[2022-09-07 14:10] LABS: Adenovirus PCR Not Detected (NotDetected); Bordetella parapertussis PCR Not Detected (NotDetected); Bordetella pertussis PCR Not Detected (NotDetected); Chlamydia pneumoniae PCR Not Detected (NotDetected); Coronavirus 229E PCR Not Detected (NotDetected); Coronavirus CoV-2 (COVID19)PCR Not Detected (NotDetected); Coronavirus HKU1 PCR Not Detected (NotDetected); Coronavirus NL63 PCR Not Detected (NotDetected); Coronavirus OC43PCR Not Detected (NotDetected); Human Metapneumovirus PCR Not Detected (NotDetected); Influenza A PCR Not Detected (NotDetected); Influenza B PCR Not Detected (NotDetected); Mycoplasma pneumoniae PCR Not Detected (NotDetected); Parainfluenza Virus 1 PCR Not Detected (NotDetected); Parainfluenza Virus 2 PCR Not Detected (NotDetected); Parainfluenza Virus 3 PCR Not Detected (NotDetected); Parainfluenza Virus 4 PCR Not Detected (NotDetected); Respiratory Syncytial VirusPCR Not Detected (NotDetected); Rhinovirus/Enterovirus PCR Not Detected (NotDetected)
--- NOTE | 2022-09-07 15:10 | History & Physical Report ---
Date of Service September 07, 2022 Assessment & Plan (1) Episode of unresponsiveness: (2) Generalized weakness: (3) Abnormal urinalysis: (4) Asthma-COPD overlap syndrome: (5) Parkinson's disease: (6) Diabetes mellitus, type II: (7) History of TIA (transient ischemic attack): Plan Episode of unresponsiveness and weakness- Details as above in HPI. Unclear etiology, currently resolved. CT head and labs unremarkable. Her vitals and BG were not checked this morning when it happened, so unable to say if any culprit there. BG 125 in ED. Recent B12 level normal. TSH normal. Respi biofire negative. No leucocytosis, afebrile, electrolytes normal. Her symptoms could be related to her UTI on background of her Parkinson and dementia. - Symptoms currently resolved. Will however monitor on tele, empiric ABx, PT/OT eval. Her sisters were very concerned about possible TIA with her presentation and prior history- will get MRI brain for completeness. Her presentation not typical for CVA or seizures and neuro exam at bedside unremarkable. Consider neuro eval as needed. UTI- UA abnormal, dysuria +. Will start on empiric rocephin pending final urine clx results Parkinson's disease with dementia- Stable. Recently saw OP neuro 1 week back- no meds were changed. Continue [employer] sinamet and exelon patch Generalized weakness- PT/OT eval. COPD/asthma- stable, no wheezes. No exacerbation. Continue home inhalers and nebs DM-2- A1c 7 2 months back. Hold home glimiperide, januvia, metformin. SSI in house- avoid hypoglycemia. Will be liberal considering her age and comorbidities. HTN- BP elevated as home meds were not administered this morning. BP had improved to 160s during my encounter in ED. Continue home meds with hold parameters. Diabetic ulcer left foot- follows wound clinic- improving- last seen 09/04, clx from that admission showed [place]. Continue local antifungal and local wound care. DVT ppx- sc heparin Dispo- Medsurg tele Updated sisters at bedside Full code History of Present Illness Chief Complaint: Episode of unresponsiveness/weakness Primary Care Provider: Jag Stover MD 82-year-old female with history of Parkinson disease with dementia, history of TIA, diabetes type 2, hypertension, who presented to ED with an episode of unresponsiveness and weakness at home today. Patient lives with her 2 sisters who take care of her. History taken from patient and sister at bedside. Patient is currently back to baseline. Patient went to bed fine last night, and was normal when she woke up at 4:30 AM for bathroom. She then went back to sleep. Around 9 am, her sisters tried to wake her up for breakfast and medications but were unable to wake her up, despite trying for about 45 minutes. States that it was as if she was not there. Patient states she knew but could not wake up. This was very unusual and never happened before. Later, they assisted her to the bathroom but were unable to get her off the commode because of weakness. This was also unusual, as she has home PT two times per week and has been improving. There was no seizure like activities, no stiffness or abnormal activities noted. Does endorses burning urination for couple weeks and lower abdominal pain. No fever, chills, N/V/chest pain, SOB. Her medical conditions have been stable. There has been no new medications. She saw neurology Dr Purvis on 08/29, seemed to be doing well and no meds were changed at that time. Her sisters check her vitals and fingerstick at home but it was not checked this morning during her unresponsive episode. She does not smoke or drink alcohol. No drug use. Allergies Allergy/AdvReac Type Severity Reaction Status Date / Time fluconazole Allergy Severe hives,rash,respiratory Verified 09/07/22 15:16 difficulty hydrochlorothiazide Allergy Severe Rash Verified 09/07/22 15:16 triamterene Allergy Severe Rash Verified 09/07/22 15:16 erythromycin base Allergy Intermediate n/a, rash Verified 09/07/22 15:16 isosorbide Allergy Intermediate head Verified 09/07/22 15:16 NSAIDS (Non-Steroidal Allergy Intermediate hives,rash Verified 09/07/22 15:16 Anti-Inflamma amifostine Allergy Unknown Unknown Verified 09/07/22 15:16 fluticasone Allergy Unknown Unknown Verified 09/07/22 15:16 lisinopril Allergy Unknown Unknown Verified 09/07/22 15:16 Penicillins Allergy Unknown Unknown Verified 09/07/22 15:16 ethyl alcohol AdvReac Unknown Unknown Verified 09/07/22 15:16 Home Medications Medication Instructions Recorded Confirmed Type albuterol sulfate 90 mcg/actuation 2 puff inhalation BID 02/06/22 09/07/22 History aerosol inhaler carbidopa 25 mg-levodopa 100 mg See Rx Instructions .Route .COMPLEX 02/06/22 09/07/22 History tablet duloxetine 30 mg capsule,delayed 30 mg PO AMHS 02/06/22 09/07/22 History release glimepiride 1 mg tablet 1 mg PO DAILY 02/06/22 09/07/22 History losartan 25 mg tablet 25 mg PO QAM 02/06/22 09/07/22 History metformin 1,000 mg tablet 1,000 mg PO BID 02/06/22 09/07/22 History nitroglycerin 0.4 mg sublingual 0.5 mg sublingual .Q5MIN PRN Chest 02/06/22 09/07/22 History tablet (Nitrostat) Pain rivastigmine 9.5 mg/24 hour 1 patch topical .Q24HR 02/06/22 09/07/22 History transdermal patch umeclidinium 62.5 mcg/actuation 1 inh inhalation QAM 02/06/22 09/07/22 History blister powder for inhalation (Incruse Ellipta) aspirin 81 mg tablet,delayed 81 mg PO QAM 06/15/22 09/07/22 History release budesonide-formoterol HFA 160 2 puff inhalation BID 06/15/22 09/07/22 History mcg-4.5 mcg/actuation aerosol inhaler rosuvastatin 5 mg tablet 5 mg PO QAM 06/15/22 09/07/22 History bisoprolol 5 1 tab PO DAILY 07/19/22 09/07/22 History mg-hydrochlorothiazide 6.25 mg tablet mirabegron 50 mg tablet,extended 50 mg PO QAM 07/19/22 09/07/22 History release 24 hr (Myrbetriq) sitagliptin phosphate 100 mg 100 mg PO QAM 07/19/22 09/07/22 History tablet (Januvia) codeine 10 mg-guaifenesin 100 mg/5 5 ml PO Q4H PRN Cough 09/07/22 09/07/22 History mL oral liquid Past Med/Surg History Medical History Anxiety Asthma CAD (coronary artery disease) COPD (chronic obstructive pulmonary disease) COVID-19 Delirium Dementia Diabetes mellitus, type II Generalized weakness GERD (gastroesophageal reflux disease) History of TIA (transient ischemic attack) Hyperlipidemia Hypertension Multiple fractures of ribs of left side Parkinson's disease Transient confusion Surgical History Hx of appendectomy S/P cholecystectomy Stented coronary artery Family History Other Diabetes Heart disease Hypertension Social History Smoking Status: Never smoker Tobacco Type: Cigarettes Cigarettes Per Day: 1 pack/day; Second Hand Exposure: No; Do You Dip or Chew Tobacco: No; Hx Alcohol Use: No Hx Substance Use: No Preferred Language: Persian Communication Ability: Effective Communication Ability Comment: memory loss, confusion at times Visual Impairment: Limited Hearing Ability: Normal Power [employer] Recovery Supervisor Required: No Beliefs That Will Affect Care: None marital status: / Current Living Situation: Family Current Living Situation Comment: One story home with sisters current occupational status: retired 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[place], [place] How many Children do You have: 0 Feels Safe at Home: Yes Diet: regular caffeine: Yes (rare) during the past year weight has: remained stable Assistive Devices: Bedside Commode and Walker Review of Systems Review of Systems: All systems reviewed & are unremarkable except as noted in Subjective Physical Exam Physical Exam: General: Lying comfortably in bed, not in distress, on room air HEENT: EOMI, GILBERT, MMM Chest: Decreased breath sounds bilaterally, no wheezes or crackles CVS: Regular rate and rhythm, normal heart sounds, no murmur Abdomen: Soft, non tender, not distended, normal bowel sounds Neuro: Awake, alert, orientedx2, conversing well, non focal neuro exam. Strength intact on all extremities, sensation grossly intact, follows all commands. Extremities: No cyanosis, clubbing or edema. Toes deformed. Left toes with dressing- maceration between first and second great toe- no infection/cellulitis noted. Results & Data Results & Data Vital Signs (Past 12 Hours) Vital Signs Temp Pulse Pulse Resp BP BP Pulse Ox 09/07/22 13:15 73 20 193/84 H 97 09/07/22 12:29 83 20 133/95 99 09/07/22 12:16 65 09/07/22 11:16 60 16 174/81 H 97 09/07/22 11:04 97 09/07/22 10:16 36.7 C 78 20 177/84 H 98 O2 Del Method 09/07/22 13:15 Room Air 09/07/22 12:29 Room Air 09/07/22 12:16 09/07/22 11:16 Room Air 09/07/22 11:04 Room Air 09/07/22 10:16 Room Air Laboratory Results Short CBC 09/07/22 Range/Units 10:49 WBC 6.24 (4.8-10.8) K/ul Hgb 11.7 L (12.0-16.0) g/dl Hct 36.4 L (37.0-47.0) % Plt Count 298 (130-400) K/uL BMP 09/07/22 10:49 Sodium 141 Potassium 4.4 Chloride 107 Carbon Dioxide 29 BUN 13 Creatinine 0.68 Glucose 129 H Calcium 9.1 Liver Function 09/07/22 Range/Units 10:49 Total Bilirubin 0.5 (0.2-1.0) mg/dl AST 16 (13-39) U/L ALT 13 (7-52) U/L Alkaline Phosphatase 48 (34-104) U/L Albumin 3.8 (3.4-5.0) gm/dl Urine 09/07/22 Range/Units 10:52 Urine Color Yellow Urine Appearance Clear (Clear) Urine pH 7.0 (4.5-7.5) Ur Specific [place] 1.012 (1.000-1.030) Urine Protein Negative (Negative) Urine Glucose (UA) Negative (Negative) Diagnostic Findings Cervical Spine CT 09/07/22 10:45 CT cervical spine wo con CLINICAL HISTORY: fall TECHNIQUE: Multidetector row helical CT of the cervical spine was performed without administration of intravenous contrast. Coronal and sagittal reformations were obtained. Automated dose lowering techniques and/or adjustment according to patient size were utilized for this exam. Comparison: None available at the time of this dictation. FINDINGS: No acute fractures or subluxations are identified. Degenerative changes are seen in the visualized spine. The alignment is normal. Heterogeneous enlarged thyroid is noted. IMPRESSION: Degenerative changes without evidence of acute bony injury. ACT 112: Negative or not required by law. Electronically signed by: Teddy Oakes M.D. 09/07/2022 11:18 AM Chest X-Ray 09/07/22 10:45 XR chest 1V portable CLINICAL HISTORY: fall TECHNIQUE: Single frontal radiograph of the chest was obtained. Comparison: Comparison is made to chest radiograph 07/19/2022 FINDINGS: No lines and tubes are seen. Calcified aortic knob is seen. The lungs are clear. No evidence of pleural effusion or pneumothorax. IMPRESSION: No acute chest disease. ACT 112: Negative or not required by law. Electronically signed by: Teddy Oakes M.D. 09/07/2022 11:[address] 09/07/22 10:45 CT head/brain wo con CLINICAL HISTORY: confusion, weakness, fall Technique: Contiguous axial CT images of the head were acquired from the base of the skull to the vertex without intravenous contrast administration. Images were viewed in brain, subdural and bone windows. Automated dose lowering techniques and/or adjustment according to patient size were utilized for this exam. Comparison: None available at the time of this dictation. Findings: Areas of decreased attenuation are present in the periventricular and subcortical white matter bilaterally consistent with small vessel ischemic disease. Generalized cerebral atrophy with commensurate enlargement of the ventricles, sulci, and cisterns is also present. There is no acute intracranial hemorrhage or evidence of acute territorial infarction. No shift of the midline structures, mass effect, or extra-axial abnormalities are shown. Atherosclerotic calcifications are present in the intracranial segments of the internal carotid arteries. Imaged portions of the paranasal sinuses and mastoid air cells are clear. The orbits appear normal. There are no acute fractures of the calvaria or scalp swelling. Impression: No acute intracranial hemorrhage, no evidence of acute territorial infarction or other acute intracranial disease process. ACT 112: Negative or not required by law. Electronically signed by: Teddy Oakes M.D. 09/07/2022 11:13 AM Pelvis X-Ray 09/07/22 10:45 XR pelvis 1-2V routine CLINICAL HISTORY: fall TECHNIQUE: A single frontal view of the pelvis was obtained. Comparison: Comparison is made to pelvis radiograph 04/13/2023 FINDINGS: There is no evidence of an acute fracture. Degenerative changes are seen in the hip joints and lumbar spine. No soft tissue abnormality is seen. IMPRESSION: Degenerative changes without evidence of acute abnormality. ACT 112: Negative or not required by law. Electronically signed by: Teddy Oakes M.D. 09/07/2022 12:02 PM
[2022-09-07] MEDS ORDERED: GLUCOSE 40% GEL 15 GM TUBE PO PRN (17:05)
[2022-09-07] MEDS ORDERED: BISOPROLOL HYDROCHLOROTHIAZIDE PO SCH (17:05)
[2022-09-07] MEDS ORDERED: DEXTROSE 50% 50 ML SYRINGE IV PRN (17:05)
[2022-09-07] MEDS ORDERED: ALBUTEROL HFA 8 GM INHALER INH SCH (17:05)
[2022-09-07] MEDS ORDERED: DOCUSATE SODIUM/SENNA 50/8.6MG TAB PO PRN (17:05)
[2022-09-07] MEDS ORDERED: CARBOHYDRATES FOR HYPOGLYCEMIA PO PRN (17:05)
[2022-09-07] MEDS ORDERED: GLUCOSE 10 TAB/TUBE PO PRN (17:05)
[2022-09-07] MEDS ORDERED: GLUCAGON FOR INJ 1 MG VIAL SQ PRN (17:05)
[2022-09-07] MEDS: INSULIN ASPART PER UNIT CHARGE SC SCH ×2 (18:18→21:30)
[2022-09-07] MEDS ORDERED: ALBUTEROL HFA 8 GM INHALER INH PRN (18:30)
[2022-09-07] MEDS ORDERED: hydrALAZINE HCL 20 MG/ML VIAL IV PRN (18:43)
[2022-09-07] MEDS: HEPARIN SOD 5,000 UNIT/0.5 ML VIAL SQ SCH (19:48)
[2022-09-07] MEDS: MIRABEGRON ER 25 MG TAB PO SCH (19:48)
[2022-09-07] MEDS: CARBIDOPA/LEVODOPA 25/100MG TAB PO SCH ×3 (19:49→23:27)
[2022-09-07] MEDS: DULoxetine HCL 30 MG CAP PO SCH (19:49)
[2022-09-07] MEDS: ASPIRIN 81 MG ECTAB PO SCH (19:52)
[2022-09-07] MEDS: UMECLIDINIUM BROMIDE 62.5MCG/BLISTER 7 PUFFS/INHALER INH SCH (19:53)
[2022-09-07] MEDS: NYSTATIN POWDER 15GM BTL EXT SCH (19:54)
--- NOTE | 2022-09-07 20:50 | Magnetic Resonance Report ---
MR brain wo con CLINICAL HISTORY: episode of AMS/unresponsiveness/weakness TECHNIQUE: Multiplanar and multisequence MR images of the brain were obtained without intravenous con trast. Comparison: Comparison is made to MRI brain 02/06/2022 FINDINGS: No abnormal restricted diffusion is identified. Foci of T2 and FLAIR hyperintensity are noted in the paraventricular areas consistent with chronic small vessel ischemic disease. Ex vacuo ventriculomegal y and sulcal enlargement is noted compatible with diffuse volume loss. No mass is seen. There is no m ass effect or midline shift. There is no evidence of acute intraparenchymal hemorrhage. No extra axia l fluid collections are seen. The corpus callosum, pituitary gland, and cerebellar tonsils appear aggie ssly unremarkable. Flow voids of the major intracranial arterial vessels are identified. The imaged portions of the para nasal sinuses, mastoid air cells, and orbits are unremarkable. IMPRESSION: No evidence of acute infarct. Chronic volume loss and white matter changes as above. ACT 112: Negative or not required by law. Electronically signed by: Teddy Oakes M.D. 09/07/2022 8:48 PM
[2022-09-07] MEDS ORDERED: BUDESONIDE/FORMOTEROL FUMARATE 160/4.5 60 PUFFS/INHALER INH SCH (21:00)
[2022-09-07] MEDS: cefTRIAXone SODIUM 1,000 MG in DEXTROSE 5% AD-VAN 50 ML IV SCH (21:21)
--- NOTE | 2022-09-07 22:03 | Communication Note ---
Date of Service: September 07, 2022 Made aware by radiologist of addendum to brain MRI done this afternoon. There is an acute punctate infarct in the right cerebellum. AP Acute CVA Past history TIA, ? possible aspirin failure Neurochecks Plavix for possible aspirin failure TTE, carotid Dopplers for stroke work-up Neurology consult Re: CVA
[2022-09-07] MEDS ORDERED: PHARMACIST DISCHARGE MED REC CONSULT PRN (22:04)
[2022-09-07] MEDS: CLOPIDOGREL BISULFATE 75 MG TAB PO ONE ×2 (23:09→23:27)
[2022-09-07] MEDS ORDERED: SODIUM CHLORIDE 0.9% 1000ML 1,000 ML IV ONE (23:58)
[2022-09-08] MEDS: MAGNESIUM SULFATE / D5W 1 GM/100 ML BAG IV SCH ×2 (00:39→02:35)
[2022-09-08] MEDS ORDERED: CARBIDOPA/LEVODOPA 25/100MG TAB PO SCH (08:00)
[2022-09-08 08:17] LABS: Hematocrit (blood only) 34.2 % (37.0-47.0); Hemoglobin 10.6 g/dl (12.0-16.0); Mean Corpuscular Hemoglobin 28.2 pg (25.0-34.0); Mean Platelet Volume 9.5 fL (9.4-12.4); Platelet Count 283 K/uL (130-400); RDW Coefficient of Variation 15.8 % (11.5-14.5); RDW Standard Deviation 52.2 fL (36.4-46.3); Red Blood Count 3.76 M/uL (4.20-5.40); White Blood Count 6.09 K/ul (4.8-10.8)
[2022-09-08] MEDS: INSULIN ASPART PER UNIT CHARGE SC SCH ×4 (08:33→21:09)
[2022-09-08 08:37] LABS: BUN Creatinine Ratio 21.4 (10-20); Calcium 8.7 mg/dl (8.6-10.3); Chol HDL Ratio 2.1 (0-5); Creatinine Clr Calc Pharmacy 61.4 ml/min; Est GFR (African American) 94.2 ml/min; Est GFR (Non-African American) 81.3 ml/min; Potassium 4.1 mmol/L (3.5-5.1)
[2022-09-08] MEDS: NYSTATIN POWDER 15GM BTL EXT SCH ×2 (08:38→21:11)
[2022-09-08] MEDS: CLOPIDOGREL BISULFATE 75 MG TAB PO SCH (08:39)
[2022-09-08] MEDS: DULoxetine HCL 30 MG CAP PO SCH ×2 (08:39→21:08)
[2022-09-08] MEDS: ASPIRIN 81 MG ECTAB PO SCH (08:39)
[2022-09-08] MEDS: HEPARIN SOD 5,000 UNIT/0.5 ML VIAL SQ SCH ×2 (08:39→21:08)
[2022-09-08] MEDS: PYRIDOXINE HCL 50 MG TAB PO SCH (08:40)
[2022-09-08] MEDS: ROSUVASTATIN CALCIUM 5 MG TAB PO SCH (08:40)
[2022-09-08] MEDS: METOPROLOL TARTRATE 25 MG TAB PO SCH ×2 (08:40→21:10)
[2022-09-08] MEDS: FLUTICASONE/VILANTEROL 200/25MCG 14 PUFFS/INHALER INH SCH (08:41)
[2022-09-08] MEDS: UMECLIDINIUM BROMIDE 62.5MCG/BLISTER 7 PUFFS/INHALER INH SCH (08:41)
[2022-09-08] MEDS ORDERED: LOSARTAN POTASSIUM 25 MG TAB PO SCH (09:00)
[2022-09-08] MEDS ORDERED: hydroCHLOROthiazide 25 MG TAB PO SCH (09:00)
--- NOTE | 2022-09-08 10:19 | Neurology Consultation ---
Date of Consultation September 08, 2022 Assessment & Plan (1) Cerebellar stroke: (2) Altered mental status: (3) Parkinson's disease: (4) Dementia: Plan 82-year-old female with a history of Parkinson's disease and dementia, presenting with altered mental status, generalized weakness, possible urinary tract infection, modestly dyskinetic this morning after receiving her Parkinson's medication, found to have a small right cerebellar ischemic infarct on MRI, in the context of rather extensive chronic small vessel ischemic disease and a chronic appearing infarct within the left frontal lobe, and generalized cerebral atrophy. Stroke risk factors for this patient include hypertension, type 2 diabetes mellitus, and dyslipidemia. Hemoglobin A1c this past May was 7.0 indicating acceptable control. A lipid panel this morning was normal, with an LDL of 42, indicating good control with rosuvastatin. Patient has been modestly hypertensive in the context of this hospitalization, probably in response to her acute ischemic stroke. However, in looking at her blood pressure readings over the past few months, she has been hypertensive on many occasions which could indicate suboptimal outpatient control. In terms of additional stroke work-up for this patient, would recommend completion of a CT angiogram of the head and neck and/or carotid ultrasound. Would also recommend checking a transthoracic echocardiogram with bubble study. Consider obtaining 30-day mobile cardiac outpatient telemetry. Continue medical management of hypertension. Permissive hypertension acceptable acutely. Long-term blood pressure goal less than 130/85. Would recommend dual antiplatelet therapy consisting of aspirin 81 mg/day and clopidogrel 75 mg/day for 3 weeks, followed by transition to clopidogrel 75 mg/day monotherapy. Continue with outpatient regimen for Parkinson's disease including carbidopa levodopa and rivastigmine patches as ordered. I do note that she is a bit dyskinetic this morning, after receiving her levodopa. Consider reducing her morning dosage of levodopa to 1.5 tablets. Patient has been following with Dr. Cheryl Ruelas for management of her Parkinson's disease and dementia, may continue to do so after discharge. History of Present Illness Reason for Consultation: stroke Requesting Physician: Toy Farmer MD Attending Physician: Kristie Banks MD History of Present Illness The patient is an 82-year-old female who presented to the emergency department yesterday for further evaluation of altered mental status and weakness as noted by family members, unable to get off the toilet, difficult to arouse per emergency medical services. Patient was pleasantly confused during her ED assessment but did not have obvious focal deficits on neurological examination. Past medical history notable for Parkinson's disease, dementia, she is prescribed carbidopa levodopa, and the rivastigmine patch. Patient also takes daily low-dose aspirin and rosuvastatin, history notable for hypertension, hyperlipidemia, and type 2 diabetes mellitus. She is confused and is an unreliable historian. She does exhibit mild restlessness this morning, she did receive her Parkinson's medications this morning according to her nurse. She has been hypertensive, presenting with a blood pressure of 177/84, did have a reading of 193/84 yesterday, currently 165/69. She has been afebrile. He CBC reveals a mild anemia, no leukocytosis. Comprehensive metabolic panel fairly unremarkable, normal sodium and potassium, normal BUN and creatinine. Glucose mildly elevated. I note she had a hemoglobin A1c this past May that was 7.0. Transaminases normal. Recent lipid panel normal, LDL 42. Normal TSH. Urinalysis perhaps marginally abnormal, 1+ bacteria, 5-10 WBCs, trace leukocyte esterase. Upper respiratory PCR, BioFire panel negative. A CT of the head completed yesterday was negative for hemorrhage or acute process. The study does reveal generalized atrophy and vascular calcifications. A brain MRI was completed yesterday as well and did reveal an acute punctate infarct within the right cerebellum. I did independently review these images and was able to appreciate these findings. I also note that she has moderately extensive chronic small vessel ischemic disease with an area of ischemic gliosis within the left frontal lobe, high convexity, probably due to an old ischemic infarct. There is notable generalized atrophy, including bilateral hippocampal atrophy. Allergies Allergy/AdvReac Type Severity Reaction Status Date / Time fluconazole Allergy Severe hives,rash,respiratory Verified 09/07/22 15:16 difficulty hydrochlorothiazide Allergy Severe Rash Verified 09/07/22 15:16 triamterene Allergy Severe Rash Verified 09/07/22 15:16 erythromycin base Allergy Intermediate n/a, rash Verified 09/07/22 15:16 isosorbide Allergy Intermediate head Verified 09/07/22 15:16 NSAIDS (Non-Steroidal Allergy Intermediate hives,rash Verified 09/07/22 15:16 Anti-Inflamma amifostine Allergy Unknown Unknown Verified 09/07/22 15:16 fluticasone Allergy Unknown Unknown Verified 09/07/22 15:16 lisinopril Allergy Unknown Unknown Verified 09/07/22 15:16 Penicillins Allergy Unknown Unknown Verified 09/07/22 15:16 ethyl alcohol AdvReac Unknown Unknown Verified 09/07/22 15:16 Home Medications Medication Instructions Recorded Confirmed Type albuterol sulfate 90 mcg/actuation 2 puff inhalation BID 02/06/22 09/07/22 History aerosol inhaler carbidopa 25 mg-levodopa 100 mg See Rx Instructions .Route .COMPLEX 02/06/22 09/07/22 History tablet duloxetine 30 mg capsule,delayed 30 mg PO AMHS 02/06/22 09/07/22 History release glimepiride 1 mg tablet 1 mg PO DAILY 02/06/22 09/07/22 History losartan 25 mg tablet 25 mg PO QAM 02/06/22 09/07/22 History metformin 1,000 mg tablet 1,000 mg PO BID 02/06/22 09/07/22 History nitroglycerin 0.4 mg sublingual 0.5 mg sublingual .Q5MIN PRN Chest 02/06/22 09/07/22 History tablet (Nitrostat) Pain rivastigmine 9.5 mg/24 hour 1 patch topical .Q24HR 02/06/22 09/07/22 History transdermal patch umeclidinium 62.5 mcg/actuation 1 inh inhalation QAM 02/06/22 09/07/22 History blister powder for inhalation (Incruse Ellipta) aspirin 81 mg tablet,delayed 81 mg PO QAM 06/15/22 09/07/22 History release budesonide-formoterol HFA 160 2 puff inhalation BID 06/15/22 09/07/22 History mcg-4.5 mcg/actuation aerosol inhaler rosuvastatin 5 mg tablet 5 mg PO QAM 06/15/22 09/07/22 History bisoprolol 5 1 tab PO DAILY 07/19/22 09/07/22 History mg-hydrochlorothiazide 6.25 mg tablet mirabegron 50 mg tablet,extended 50 mg PO QAM 07/19/22 09/07/22 History release 24 hr (Myrbetriq) sitagliptin phosphate 100 mg 100 mg PO QAM 07/19/22 09/07/22 History tablet (Januvia) codeine 10 mg-guaifenesin 100 mg/5 5 ml PO Q4H PRN Cough 09/07/22 09/07/22 Hist ory mL oral liquid Patient History Medical History (Updated 09/08/22 @ 10:05 by Akira Chavarria MD) Anxiety Asthma CAD (coronary artery disease) COPD (chronic obstructive pulmonary disease) COVID-19 Delirium Dementia Diabetes mellitus, type II Generalized weakness GERD (gastroesophageal reflux disease) History of TIA (transient ischemic attack) Hyperlipidemia Hypertension Multiple fractures of ribs of left side Parkinson's disease Transient confusion Surgical History Hx of appendectomy S/P cholecystectomy Stented coronary artery Family History Other Diabetes Heart disease Hypertension Social History Smoking Status: Former smoker Tobacco Type: Cigarettes Cigarettes Per Day: 1 pack/day; Second Hand Exposure: No; Do You Dip or Chew Tobacco: No; Hx Alcohol Use: No Hx Substance Use: No Preferred Language: Macedonian Communication Ability: Effective Communication Ability Comment: memory loss, confusion at times Visual Impairment: Limited Hearing Ability: Normal Hi Ranger Operator Required: No Beliefs That Will Affect Care: None marital status: / Current Living Situation: Family Current Living Situation Comment: Sister current occupational status: retired 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[place], [place] How many Children do You have: 0 Feels Safe at Home: Yes Safety Concerns: Feels Safe At This Time Diet: regular caffeine: Yes (rare) during the past year weight has: remained stable Assistive Devices: Glasses and Walker Review of Systems Review of Systems: Unobtainable due to cognitive status Exam (Neuro) Constitutional: + altered mental status and + frail appearing Eyes: normal visual nagel by confrontation, PERRL and EOM intact bilaterally Cardiovascular: Vessels: no carotid bruit Neurologic: Oriented to:: Person; negative Place or Time Memory: negative Short Term Intact or Remote Intact Attention: negative Span Intact or Concentration Intact Speech Fluency: Dysfluency and Other (Hypophonia) Spe ech Aphasia: negative Aphasia Fund of Knowledge: Vocabulary; negative Current Events or Past History Cranial Nerves: Normal II, III, IV, , V, VII, VIII, IX, X, XI and XII Motor Strength: Normal Lower Extremities and Normal Upper Extremities Rigidity: None Muscle Bulk/Involuntary Movements: negative No Involuntary Movements (Patient exhibits generalized restlessness, arms and legs) or Pill Rolling Tremor Sensation: Light Touch Intact, Pain/Temperature Intact, Vibration Intact and Proprioception Intact Coordination: negative Finger-Nose Abnormal or Heel-Bautista Abnormal Deep Tendon Reflexes: Rt Triceps: 2+, Lt Triceps: 2+, Rt Biceps: 2+, Lt Biceps: 2+, Rt Brachioradialis: 2+, Lt Brachioradialis: 2+, Rt Patellar: 2+, Lt Patellar: 2+, Rt Ankle: 1+ and Lt Ankle: 1+ Special Tests: negative Babinski Present Details: Gait cannot be safely tested Results & Data Vital Signs (Past 12 Hours) Vital Signs Temp Pulse Pulse Resp BP Pulse Ox O2 Del Method 09/08/22 08:00 65 09/08/22 07:28 36.9 C 64 17 165/69 H 95 Room Air 09/08/22 04:00 36.3 C L 66 18 161/73 H 95 Room Air 09/07/22 22:09 66 09/07/22 23:00 36.7 C 74 20 186/83 H 90 Room Air Laboratory Results WBC 6.09, hemoglobin 10.6, hematocrit 34.2, platelet count 283, sodium 143, potassium 4.1, BUN 15, creatinine 0.70, glucose 121, calcium 8.7, magnesium 1.8, AST 16, ALT 13, troponin 5.7, triglycerides 120, cholesterol 125, LDL 42, VLDL 24, HDL 59, TSH 0.443, urinalysis 1+ bacteria, 5-10 WBCs, trace leukocyte esterase, upper respiratory PCR BioFire panel negative Diagnostic Findings CT of the head and brain MRI are as described in the history of present illness, I independently reviewed the studies. Electrocardiogram reveals a normal sinus rhythm, 64 bpm PG Care Time/CCT Total # of Minutes Spent Total Time Spent with Patient: Total time spent is greater than 50% in coordination of care (as documented) at patient's floor/unit and/or counseling patient: Coding Level of Care Code 70027 INT INP/OBS CARE 3/75MIN Diagnoses Cerebellar stroke I63.9 Altered mental status R41.82 Parkinson's disease G20 Dementia F03.90
[2022-09-08] MEDS ORDERED: OPTIRAY 320 500ml IV ONE (11:52)
[2022-09-08] MEDS: CARBIDOPA/LEVODOPA 25/100MG TAB PO SCH ×3 (12:21→21:07)
--- NOTE | 2022-09-08 12:22 | Hospitalist Progress Note ---
Date of Service September 08, 2022 Assessment & Plan (1) Cerebellar stroke: (2) Episode of unresponsiveness: (3) Generalized weakness: (4) Abnormal urinalysis: (5) Asthma-COPD overlap syndrome: (6) Parkinson's disease: (7) Diabetes mellitus, type II: (8) History of TIA (transient ischemic attack): Plan Had an episode of unresponsiveness and weakness CT head and labs unremarkable. BG 125 in ED. Recent B12 level normal. TSH normal. Respi biofire negative. No leucocytosis, afebrile, electrolytes normal. 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 Plan to achieve normotension over time Possible UTI UA abnormal Continue rocephin pending final urine clx results Parkinson's disease with dementia Stable. Recently saw OP neuro 1 week back- no meds were changed. Sisters reported patient takes 2 tabs of carbidopa-levodopa at 8am, 1.5 tab at noon/4pm/8pm Neurologist recommends reducing AM dose to 1.5 tab as well Patient to follow up with her neurologist outpatient COPD/asthma- Stable No exacerbation. Continue home inhalers and nebs DM-2- A1c 7 in May Hold home glimiperide, januvia, metformin. SSI while inpatient HTN- BP elevated as home meds were not administered this morning. BP had improved to 160s during my encounter in ED. Continue home meds with hold parameters. Diabetic ulcer left foot- follows wound clinic- improving- last seen 09/04, clx from that admission showed [place]. Continue local antifungal and local wound care. DVT ppx- sc heparin Dispo- Medsurg tele Updated sisters over the phone Full code I spent a total of 60 minutes coordinating, documenting and providing care for this patient excluding time spent in performance of separately billed services Admission and Anticipated Discharge Date Admission Date: September 07, 2022 Subjective Patient seen and examined She is alert and oriented to person and place only Poor historian Denied any complaints Physical Exam Constitutional: + well hydrated; no acute distress Eyes: PERRL, conjunctivae normal, anicteric sclerae ENMT: external ear and nose normal, oropharynx normal Respiratory: normal respiratory effort, lungs clear to auscultation Cardiovascular: RRR, no murmur, no edema Gastrointestinal (Abdomen): normal bowel sounds, soft, nontender, no hepatosplenomegaly Musculoskeletal: No pedal edema. Some deformities in the toes Neurologic: PERRL, EOMI, accommodation nl, no face palsy, no dysarthria No focal motor or sensory deficits noted Psychiatric: Alert and oriented to person, knows she is in the hospital Mildly restless Results & Data Results & Data Vital Signs (Past 12 Hours) Vital Signs Temp Pulse Pulse Resp BP Pulse Ox O2 Del Method 09/08/22 11:16 36.7 C 65 96/50 L 96 Room Air 09/08/22 08:00 65 09/08/22 07:28 36.9 C 64 17 165/69 H 95 Room Air 09/08/22 04:00 36.3 C L 66 18 161/73 H 95 Room Air Laboratory Results Abnormal lab results 09/07/22 09/07/22 09/08/22 Range/Units 18:15 21:29 07:32 RBC 3.76 L (4.20-5.40) M/uL Hgb 10.6 L (12.0-16.0) g/dl Hct 34.2 L (37.0-47.0) % MCHC 31.0 L (32.0-36.0) g/dL RDW Std Deviation 52.2 H (36.4-46.3) fL RDW Coeff of Jayden 15.8 H (11.5-14.5) % Chloride (98-107) mmol/L BUN/Creatinine Ratio (10-20) Glucose (70-99(Fasting)) mg/dl POC Glucose 130 H 111 H (70-99) mg/dl 09/08/22 09/08/22 09/08/22 Range/Units 07:32 07:59 11:33 RBC (4.20-5.40) M/uL Hgb (12.0-16.0) g/dl Hct (37.0-47.0) % MCHC (32.0-36.0) g/dL RDW Std Deviation (36.4-46.3) fL RDW Coeff of Jayden (11.5-14.5) % Chloride 110 H (98-107) mmol/L BUN/Creatinine Ratio 21.4 H (10-20) Glucose 121 H (70-99(Fasting)) mg/dl POC Glucose 131 H 120 H (70-99) mg/dl
--- NOTE | 2022-09-08 13:05 | CT Scan Report ---
CT angio head w con, CT angio neck with con CLINICAL HISTORY: Stroke work up TECHNIQUE: CT angiography of the head and neck was performed following intravenous administration of iodinated contrast. Coronal and sagittal MIPS were obtained from the axial data set and were submitte d for review. Automated dose lowering techniques and/or adjustment according to patient size were ut ilized for this examination. All measurements were calculated based on NASCET criteria. CT DOSE: 492.19 mGy.cm Comparison: None available at the time of this dictation. FINDINGS: Emphysema is seen. There is a 3 mm nodule in the right upper lobe (series 4 image 52). Heterogeneous thyroid is seen without discrete nodules. CTA Neck: Direct origin of the left vertebral artery from the aortic arch is seen. There is no signi ficant atherosclerotic plaque in the aortic arch or the origins of the innominate, left common caroti d, and left subclavian arteries. There is mild calcified atherosclerotic plaque at the bifurcation o f the bilateral common carotid arteries without hemodynamically significant flow stenosis. There is n o dissection present. The vertebral arteries are codominant. CTA Head: The anterior and posterior cerebral circulations are patent. origin of the left post erior cerebral artery is seen. Bilateral carotid atherosclerotic calcifications are seen without hemo dynamically significant stenosis. IMPRESSION: 1. No occlusion, hemodynamically significant stenosis, or dissection in the major cervical arteries. 2. No occlusion, hemodynamically significant stenosis, aneurysm, dissection, or arteriovenous malfor mation in the major intracranial arteries. Assessment of stenosis of the internal carotid arteries is based on NASCET criteria. ACT 112: Negative or not required by law. Electronically signed by: Teddy Oakes M.D. 09/08/2022 1:02 PM
--- NOTE | 2022-09-08 14:05 | Ultrasound Report ---
ULTRASOUND OF THE CAROTID ARTERIES CLINICAL HISTORY: cva COMPARISON: None available at the time of this dictation. TECHNIQUE: Real-time, grayscale, and color Doppler sonography of the carotid arteries is performed. I mages are reviewed in the transverse and longitudinal planes. FINDINGS: The carotid arteries are patent bilaterally and demonstrate antegrade flow. There is mild atheroscler otic plaque on the right and mild atherosclerotic plaque on the left. Normal doppler arterial wavefor ms are seen throughout. Velocity measurements are listed below. Common carotid peak systolic velocity (cm/sec): RIGHT: 54 LEFT: 53 ICA peak systolic velocity (cm/sec): RIGHT: 69 LEFT: 73 ICA/CC peak systolic ratio: RIGHT: 1.3 LEFT: 1.4 Antegrade flow was shown in the vertebral arteries. The external carotid arteries are patent. IMPRESSION: 1. There is no sonographic evidence of hemodynamically significant stenosis in the right or left car otid arterial system. 2. Antegrade flow is shown in the vertebral arteries. Society of Radiologists in Ultrasound consensus guidelines: Normal: ICA PSV is <125 cm/sec and no plaque or intimal thickening is visible sonographically additional criteria include ICA/CCA PSV ratio <2.0 and ICA EDV <40 cm/sec <50% ICA stenosis: ICA PSV is <125 cm/sec and plaque or intimal thickening is visible sonographically additional criteria include ICA/CCA PSV ratio <2.0 and ICA EDV <40 cm/sec 50-69% ICA stenosis: ICA PSV is 125-230 cm/sec and plaque is visible sonographically additional criteria include ICA/CCA PSV ratio of 2.0-4.0 and ICA EDV of 40-100 cm/sec ?70% ICA stenosis but less than near occlusion: ICA PSV is >230 cm/sec and visible plaque and luminal narrowing are seen at gutierrez-scale and color Dopp ler ultrasound (the higher the Doppler parameters lie above the threshold of 230 cm/sec, the greater the likelihood of severe disease) additional criteria include ICA/CCA PSV ratio >4 and ICA EDV >100 cm/sec ACT 112: Negative or not required by law. Electronically signed by: Teddy Oakes M.D. 09/08/2022 2:02 PM
[2022-09-08] MEDS: cefTRIAXone SODIUM 1,000 MG in DEXTROSE 5% AD-VAN 50 ML IV SCH (17:36)
--- NOTE | 2022-09-08 20:46 | Electrocardiogram Report ---
Test Reason : Blood Pressure : / mmHG Vent. Rate : 064 BPM Atrial Rate : 064 BPM P-R Int : 168 ms QRS Dur : 070 ms QT Int : 378 ms P-R-T Axes : 048 042 040 degrees QTc Int : 389 ms Normal sinus rhythm Low voltage QRS Septal infarct (cited on or before 07-SEP-2022) Abnormal ECG When compared with ECG of 19-JUL-2022 13:11, QRS duration has decreased Questionable change in initial forces of Septal leads Confirmed by Zackery Begum ([id number]) on 09/08/2022 8:46:08 PM Referred By: REFERRED SELF Confirmed By:Zackery Begum
[2022-09-08] MEDS: MIRABEGRON ER 25 MG TAB PO SCH (21:10)
[2022-09-09] MEDS ORDERED: LORazepam 2 MG/1 ML VIAL IV STA (05:39)
[2022-09-09] MEDS ORDERED: LOSARTAN POTASSIUM 25 MG TAB PO SCH (05:40)
[2022-09-09] MEDS: INSULIN ASPART PER UNIT CHARGE SC SCH ×4 (08:18→22:02)
[2022-09-09] MEDS: CLOPIDOGREL BISULFATE 75 MG TAB PO SCH (08:19)
[2022-09-09] MEDS: ROSUVASTATIN CALCIUM 5 MG TAB PO SCH (08:19)
[2022-09-09] MEDS: ASPIRIN 81 MG ECTAB PO SCH (08:19)
[2022-09-09] MEDS: CARBIDOPA/LEVODOPA 25/100MG TAB PO SCH ×4 (08:20→19:58)
[2022-09-09] MEDS: BISOPROLOL FUMARATE 5 MG TAB PO SCH (08:21)
[2022-09-09] MEDS: hydroCHLOROthiazide 25 MG TAB PO SCH (08:23)
[2022-09-09] MEDS: DULoxetine HCL 30 MG CAP PO SCH ×2 (08:23→22:10)
[2022-09-09] MEDS: PYRIDOXINE HCL 50 MG TAB PO SCH (08:24)
[2022-09-09] MEDS: HEPARIN SOD 5,000 UNIT/0.5 ML VIAL SQ SCH ×2 (08:25→22:12)
[2022-09-09] MEDS: UMECLIDINIUM BROMIDE 62.5MCG/BLISTER 7 PUFFS/INHALER INH SCH (08:25)
[2022-09-09] MEDS: NYSTATIN POWDER 15GM BTL EXT SCH ×2 (08:25→22:12)
[2022-09-09] MEDS: NITROFURANTOIN MONOHYDRATE 100 MG CAP PO SCH ×2 (08:25→22:11)
[2022-09-09] MEDS: FLUTICASONE/VILANTEROL 200/25MCG 14 PUFFS/INHALER INH SCH (08:26)
[2022-09-09 09:27] LABS: Hemoglobin 11.8 g/dl (12.0-16.0); Mean Corpuscular Hemoglobin 28.5 pg (25.0-34.0); Mean Corpuscular Hgb Conc 31.9 g/dL (32.0-36.0); Mean Corpuscular Volume 89.4 fL (80.0-100.0); Mean Platelet Volume 9.6 fL (9.4-12.4); Platelet Count 305 K/uL (130-400); RDW Coefficient of Variation 15.6 % (11.5-14.5); RDW Standard Deviation 50.4 fL (36.4-46.3); Red Blood Count 4.14 M/uL (4.20-5.40); White Blood Count 6.81 K/ul (4.8-10.8)
[2022-09-09 09:44] LABS: BUN Creatinine Ratio 19.5 (10-20); Creatinine Clr Calc Pharmacy 55.8 ml/min; Est GFR (African American) 83.9 ml/min; Est GFR (Non-African American) 72.4 ml/min; Phosphorus 3.1 mg/dl (2.5-4.9); Potassium 4.1 mmol/L (3.5-5.1)
--- NOTE | 2022-09-09 09:56 | Pharmacy Report ---
- Date of Service September 09, 2022 - Pharmacy CVA/TIA Medication Review Medications to Prevent Stroke handout has been added to the patients discharge packet. Antiplatelet(s) * aspirin 81 mg PO daily + clopidogrel 75 mg PO daily x 3 weeks, then clopidogrel 75 mg PO daily ongoing Cholesterol * Rosuvastatin 5 mg PO daily * High intensity statin deferred due to age >75 DVT Prophylaxis * Heparin SQ Therapeutic Anticoagulation * No history of Afib/Aflutter noted Type 2 Diabetes * Patient w/ well-controlled T2DM, but not on diabetes medication w/ proven CVD benefit. Per Dr. Banks, a diabetes medication with proven CVD benefit will be deferred to their outpatient provider due to familiarity with risks/benefits of such therapies. "Medications to prevent stroke" handout has already been added to the patient's discharge packet, which instructs the patient to follow up with their outpatient provider to evaluate which diabetes medication with proven CVD benefit is best for them
--- NOTE | 2022-09-09 11:13 | Hospitalist Progress Note ---
Date of Service September 09, 2022 Assessment & Plan (1) Cerebellar stroke: (2) Episode of unresponsiveness: (3) Generalized weakness: (4) Abnormal urinalysis: (5) Asthma-COPD overlap syndrome: (6) Parkinson's disease: (7) Diabetes mellitus, type II: (8) History of TIA (transient ischemic attack): Plan Had an episode of unresponsiveness and weakness CT head and labs unremarkable. BG 125 in ED. Recent B12 level normal. TSH normal. Respi biofire negative. No leucocytosis, Afebrile, electrolytes normal. MRI showed a small right cerebellar infarct Neuro evaluation and recommendations noted Continue DAPT for 3 weeks, then plavix ongoing Considering age and LDL of 42, will continue home dose of rosuvastatin 5mg daily HbA1c was 7 in May CTA head and neck did not show any occlusion, hemodynamically significant stenosis or dissection JANICE reviewed. 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 Tolerating diet well Awaiting PT/OT eval Will need outpatient zio patch testing Resume home bisoprolol and HCTZ UTI UA abnormal UCx : probable enterococcus Antibiotics changed to macrobid Parkinson's disease with dementia Stable. Recently saw OP neuro 1 week back- no meds were changed. Sisters reported patient takes 2 tabs of carbidopa-levodopa at 8am, 1.5 tab at noon/4pm/8pm Neurologist recommended reducing AM dose to 1.5 tab as well Patient to follow up with her neurologist outpatient COPD/asthma- Stable No exacerbation. Continue home inhalers and nebs DM-2- A1c 7 in May Hold home glimiperide, januvia, metformin. SSI while inpatient HTN- Home antihypertensives resumed today. Will keep inpatient today to optimize BP control Diabetic ulcer left foot- follows wound clinic- improving- last seen 09/04, clx from that admission showed [place]. Continue local antifungal and local wound care. DVT ppx- sc heparin Dispo- Med surg tele Full code I spent a total of 45 minutes coordinating, documenting and providing care for this patient excluding time spent in performance of separately billed services Admission and Anticipated Discharge Date Admission Date: September 08, 2022 Subjective Patient seen and examined Alert and oriented to person only, trying to get out of bed Review of Systems Review of Systems: Unobtainable due to cognitive status Physical Exam Constitutional: + well hydrated; no acute distress Eyes: PERRL, conjunctivae normal, anicteric sclerae ENMT: external ear and nose normal, oropharynx normal Respiratory: normal respiratory effort, lungs clear to auscultation Cardiovascular: RRR, no murmur, no edema Gastrointestinal (Abdomen): normal bowel sounds, soft, nontender, no hepatosplenomegaly Musculoskeletal: No pedal edema Neurologic: PERRL, EOMI, accommodation nl, no face palsy, no dysarthria Moves all extremities Psychiatric: AOx1 (person only) Results & Data Results & Data Vital Signs (Past 12 Hours) Vital Signs Temp Pulse Pulse Resp BP Pulse Ox O2 Del Method 09/09/22 06:59 75 09/09/22 06:42 36.1 C L 71 20 170/79 H 96 Room Air 09/09/22 00:00 71 09/09/22 04:00 36.5 C 71 20 201/91 H 96 Room Air Laboratory Results Abnormal lab results 09/08/22 09/08/22 09/08/22 Range/Units 11:33 16:44 20:24 RBC (4.20-5.40) M/uL Hgb (12.0-16.0) g/dl MCHC (32.0-36.0) g/dL RDW Std Deviation (36.4-46.3) fL RDW Coeff of Jayden (11.5-14.5) % Glucose (70-99(Fasting)) mg/dl POC Glucose 120 H 160 H 132 H (70-99) mg/dl 09/09/22 09/09/22 09/09/22 Range/Units 07:43 08:41 08:41 RBC 4.14 L (4.20-5.40) M/uL Hgb 11.8 L (12.0-16.0) g/dl MCHC 31.9 L (32.0-36.0) g/dL RDW Std Deviation 50.4 H (36.4-46.3) fL RDW Coeff of Jayden 15.6 H (11.5-14.5) % Glucose 260 H (70-99(Fasting)) mg/dl POC Glucose 153 H (70-99) mg/dl
[2022-09-09] MEDS ORDERED: ALBUTEROL 0.083% NEBU SOLN 3 ML VIAL NEB PRN (16:59)
[2022-09-09] MEDS ORDERED: LOSARTAN POTASSIUM 25 MG TAB PO ONE (17:00)
[2022-09-09] MEDS: MIRABEGRON ER 25 MG TAB PO SCH (22:10)
[2022-09-10] MEDS: LOSARTAN POTASSIUM 50 MG TAB PO SCH (06:35)
[2022-09-10] MEDS: hydroCHLOROthiazide 25 MG TAB PO SCH (06:35)
[2022-09-10] MEDS: INSULIN ASPART PER UNIT CHARGE SC SCH ×4 (08:51→20:18)
[2022-09-10] MEDS: BISOPROLOL FUMARATE 5 MG TAB PO SCH (08:52)
[2022-09-10] MEDS: DULoxetine HCL 30 MG CAP PO SCH ×2 (08:52→20:12)
[2022-09-10] MEDS: NITROFURANTOIN MONOHYDRATE 100 MG CAP PO SCH ×2 (08:52→20:14)
[2022-09-10] MEDS: CLOPIDOGREL BISULFATE 75 MG TAB PO SCH (08:52)
[2022-09-10] MEDS: PYRIDOXINE HCL 50 MG TAB PO SCH (08:52)
[2022-09-10] MEDS: HEPARIN SOD 5,000 UNIT/0.5 ML VIAL SQ SCH ×2 (08:53→20:13)
[2022-09-10] MEDS: ASPIRIN 81 MG ECTAB PO SCH (08:53)
[2022-09-10] MEDS: NYSTATIN POWDER 15GM BTL EXT SCH ×2 (08:53→20:14)
[2022-09-10] MEDS: ROSUVASTATIN CALCIUM 5 MG TAB PO SCH (08:53)
[2022-09-10] MEDS: FLUTICASONE/VILANTEROL 200/25MCG 14 PUFFS/INHALER INH SCH (08:54)
[2022-09-10] MEDS: UMECLIDINIUM BROMIDE 62.5MCG/BLISTER 7 PUFFS/INHALER INH SCH (08:54)
[2022-09-10] MEDS: CARBIDOPA/LEVODOPA 25/100MG TAB PO SCH ×4 (08:55→20:12)
--- NOTE | 2022-09-10 10:40 | Hospitalist Progress Note ---
Date of Service September 10, 2022 Assessment & Plan (1) Cerebellar stroke: (2) Episode of unresponsiveness: (3) Generalized weakness: (4) Abnormal urinalysis: (5) Asthma-COPD overlap syndrome: (6) Parkinson's disease: (7) Diabetes mellitus, type II: (8) History of TIA (transient ischemic attack): Plan Had an episode of unresponsiveness and weakness CT head and labs unremarkable. BG 125 in ED. Recent B12 level normal. TSH normal. Respi biofire negative. No leucocytosis, Afebrile, electrolytes normal. MRI showed a small right cerebellar infarct Neuro evaluation and recommendations noted Continue DAPT for 3 weeks, then plavix ongoing Considering age and LDL of 42, will continue home dose of rosuvastatin 5mg daily HbA1c was 7 in May CTA head and neck did not show any occlusion, hemodynamically significant stenosis or dissection JANICE reviewed. EF 55-60, No ASD or PFO HOT BOX SPOTTER eval noted. Tolerating diet well PT/OT eval noted. SNF recommended Will need outpatient zio patch testing BP is poorly controlled Home bisoprolol, HCTZ resumed yesterday after permissive HTN Home losartan increased to 50mg from yesterday. Monitor BP. If still significantly elevated, may need further adjustments UTI UA abnormal UCx : probable enterococcus Currently on macrobid Parkinson's disease with dementia Stable. Recently saw OP neuro 1 week back- no meds were changed. Sisters reported patient takes 2 tabs of carbidopa-levodopa at 8am, 1.5 tab at noon/4pm/8pm Neurologist recommended reducing AM dose to 1.5 tab as well Patient to follow up with her neurologist outpatient COPD/asthma- Stable No exacerbation. Continue home inhalers and nebs DM-2- A1c 7 in May Hold home glimiperide, januvia, metformin. SSI while inpatient HTN- Poorly controlled Will keep inpatient today to optimize BP control as above Has chronic wound in both feet. Fungal infection Follows wound clinic- improving- last seen 09/04, clx from that admission showed [place]. Continue local antifungal and local wound care. DVT ppx- sc heparin Dispo- Med surg tele Full code Had discussed with sisters yesterday and they agree with SNF placement CM to work on this I spent a total of 45 minutes coordinating, documenting and providing care for this patient excluding time spent in performance of separately billed services Admission and Anticipated Discharge Date Admission Date: September 08, 2022 Subjective Patient seen and examined Alert and oriented to person only Denied any complaints. ROS limited due to cognitive impairment BP was significantly elevated overnight. Got AM dose early. Losartan was increased to 50mg from yesterday. Physical Exam Constitutional: + well hydrated; no acute distress Eyes: PERRL, conjunctivae normal, anicteric sclerae ENMT: external ear and nose normal, oropharynx normal Respiratory: normal respiratory effort, lungs clear to auscultation Cardiovascular: RRR, no murmur, no edema Gastrointestinal (Abdomen): normal bowel sounds, soft, nontender, no hepatosplenomegaly Neurologic: PERRL, EOMI, accommodation nl, no face palsy, no dysarthria +Resting tremor Psychiatric: Alert and oriented to person only. Follows commands Results & Data Results & Data Vital Signs (Past 12 Hours) Vital Signs Temp Pulse Pulse Pulse Resp BP BP 09/10/22 08:00 75 09/10/22 08:15 36.9 C 76 20 182/93 H 09/10/22 06:28 74 16 201/82 H 09/10/22 04:20 36.6 C 74 18 188/82 H 09/09/22 23:00 65 09/09/22 23:57 36.5 C 84 20 190/80 H Pulse Ox O2 Del Method 09/10/22 08:00 09/10/22 08:15 95 Room Air 09/10/22 06:28 95 Room Air 09/10/22 04:20 99 Room Air 09/09/22 23:00 09/09/22 23:57 99 Room Air Laboratory Results Abnormal lab results 09/09/22 09/09/22 09/09/22 Range/Units 11:35 16:38 20:11 POC Glucose 123 H 153 H 121 H (70-99) mg/dl 09/10/22 Range/Units 07:42 POC Glucose 171 H (70-99) mg/dl
[2022-09-10] MEDS: REMOVE RIVASTIGMINE PATCH SCH (17:29)
[2022-09-10] MEDS ORDERED: hydrALAZINE HCL 20 MG/ML VIAL IV PRN (17:29)
[2022-09-10] MEDS: RIVASTIGMINE 9.5 MG TD SCH (17:30)
[2022-09-10] MEDS: MIRABEGRON ER 25 MG TAB PO SCH (20:14)
[2022-09-11 08:45] LABS: Hematocrit (blood only) 37.1 % (37.0-47.0); Hemoglobin 12.2 g/dl (12.0-16.0); Mean Corpuscular Hemoglobin 28.9 pg (25.0-34.0); Mean Corpuscular Hgb Conc 32.9 g/dL (32.0-36.0); Mean Corpuscular Volume 87.9 fL (80.0-100.0); Mean Platelet Volume 9.5 fL (9.4-12.4); Platelet Count 299 K/uL (130-400); RDW Coefficient of Variation 15.4 % (11.5-14.5); RDW Standard Deviation 49.2 fL (36.4-46.3); Red Blood Count 4.22 M/uL (4.20-5.40); White Blood Count 6.45 K/ul (4.8-10.8)
[2022-09-11 08:54] LABS: BUN Creatinine Ratio 25.3 (10-20); Calcium 9.5 mg/dl (8.6-10.3); Creatinine Clr Calc Pharmacy 57.2 ml/min; Est GFR (African American) 86.6 ml/min; Est GFR (Non-African American) 74.8 ml/min; Potassium 4.2 mmol/L (3.5-5.1)
[2022-09-11] MEDS: HEPARIN SOD 5,000 UNIT/0.5 ML VIAL SQ SCH ×2 (09:01→22:37)
[2022-09-11] MEDS: PYRIDOXINE HCL 50 MG TAB PO SCH (09:01)
[2022-09-11] MEDS: LOSARTAN POTASSIUM 50 MG TAB PO SCH (09:01)
[2022-09-11] MEDS: BISOPROLOL FUMARATE 5 MG TAB PO SCH (09:01)
[2022-09-11] MEDS: CARBIDOPA/LEVODOPA 25/100MG TAB PO SCH ×4 (09:02→22:34)
[2022-09-11] MEDS: NITROFURANTOIN MONOHYDRATE 100 MG CAP PO SCH ×2 (09:02→22:33)
[2022-09-11] MEDS: CLOPIDOGREL BISULFATE 75 MG TAB PO SCH (09:02)
[2022-09-11] MEDS: DULoxetine HCL 30 MG CAP PO SCH ×2 (09:02→22:37)
[2022-09-11] MEDS: hydroCHLOROthiazide 25 MG TAB PO SCH (09:02)
[2022-09-11] MEDS: ROSUVASTATIN CALCIUM 5 MG TAB PO SCH (09:02)
[2022-09-11] MEDS: ASPIRIN 81 MG ECTAB PO SCH (09:02)
[2022-09-11] MEDS: UMECLIDINIUM BROMIDE 62.5MCG/BLISTER 7 PUFFS/INHALER INH SCH (09:03)
[2022-09-11] MEDS: NYSTATIN POWDER 15GM BTL EXT SCH ×2 (09:03→22:38)
[2022-09-11] MEDS: FLUTICASONE/VILANTEROL 200/25MCG 14 PUFFS/INHALER INH SCH (09:03)
[2022-09-11] MEDS: INSULIN ASPART PER UNIT CHARGE SC SCH ×4 (09:11→22:32)
--- NOTE | 2022-09-11 13:01 | XRay Report ---
LEFT FOOT 3 VIEWS CLINICAL HISTORY: Foot infection. FINDINGS: 3 views of the left foot are compared to study dated 07/19/2022. The skeletal structures are osteopenic. No acute fracture is clearly identified. There is hallux valgus, with moderate to severe osteoarthritic change at the first metatarsophalangeal joint. Moderate osteoarthritic change is note d at the tarsometatarsal articulations. There is a large plantar heel spur. Degenerative spurring is seen along the dorsal aspect of the tarsal bones. There is subluxation/dislocation at the second meta tarsophalangeal joint. This represents a change from 07/19/2022. No bony erosion or periostitis is abdulaziz ntified. Mild soft tissue swelling is seen throughout the foot. No soft tissue gas is identified. IMPRESSION: 1. No acute fracture is clearly seen. 2. There is subluxation/dislocation at the second metatarsophalangeal joint. This represents a change from 07/19/2022. Correlate clinically. Consider dedicated views of the second toe for better visualiz ation. 3. Osteopenia with degenerative change, hallux valgus, and a large plantar heel spur as above. 4. Mild soft tissue swelling is seen throughout the foot. Electronically signed by: Bal Bishop M.D. 09/11/2022 1:00 PM
--- NOTE | 2022-09-11 15:40 | XRay Report ---
XR toe(s) LT min 2V HISTORY: 82 years-old Female 2nd toe dislocation acute pain of the left second toe COMPARISON: Radiographs 09/11/2022, radiographs 07/19/2022 TECHNIQUE: 3 views of the left second toe FINDINGS: Demineralized appearance of the bones. Hallux valgus with moderate first MTP joint osteoarthritis. Co rtical thickening and irregularity within the base of the second proximal phalanx with dislocation an d apex medial angulation of the second metatarsophalangeal joint. Few soft tissue swelling. Equivocal bony erosions are noted within the second metatarsal phalangeal joint. IMPRESSION: 1. Confirmation of the second toe dislocation. No acute fracture identified. 2. Soft tissue swelling with suggestion of cortical erosions within the second metatarsal phalangeal joint and mild periosteal elevation. Considering patient history of chronic wounds of the feet, findi ngs may represent underlying osteomyelitis. Correlate with clinical exam findings. ACT 112: Negative or not required by law. The above report was generated using voice recognition software. It may contain grammatical, syntax o r spelling errors. Electronically signed by: Henry Rodney M.D. 09/11/2022 3:38 PM
--- NOTE | 2022-09-11 17:01 | Hospitalist Progress Note ---
Date of Service September 11, 2022 Assessment & Plan (1) Cerebellar stroke: (2) Episode of unresponsiveness: (3) Generalized weakness: (4) Abnormal urinalysis: (5) Asthma-COPD overlap syndrome: (6) Parkinson's disease: (7) Diabetes mellitus, type II: (8) History of TIA (transient ischemic attack): Plan Acute CVA Had an unresponsive episode prior to admission --MRI Brain:acute punctate infarct in the right cerebellum. -- Head and neck CTA:No occlusion, hemodynamically significant stenosis, or dissection in the major cervical arteries. No occlusion, hemodynamically significant stenosis, aneurysm, dissection, or arteriovenous malformation in the major intracranial arteries. --ECHO: EF 55 to 60%. No ASD, PFO is not assessed --Recent B12 level normal. TSH normal. Respi biofire negative. 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 No acute fracture identified. Soft tissue swelling with suggestion of cortical erosions within the second metatarsal phalangeal joint and mild periosteal elevation. Considering patient history of chronic wounds of the feet, findings may represent underlying osteomyelitis. Correlate with clinical exam findings. -- Obtain MRI Foot We will consult podiatry We will consider antibiotics if MRI consistent with osteomyelitis Continue antifungal foot web spaces Hypertension BP Variable Continue bisoprolol, losartan, HCTZ Monitor BP--adjust medications as able UTI UCx :Enterococcus faecalis Currently on Macrobid Per Prior Provider Parkinson's disease with dementia Stable Recently saw OP neuro 1 week back- no meds were changed. Sisters reported patient takes 2 tabs of carbidopa-levodopa at 8am, 1.5 tab at noon/4pm/8pm Neurologist recommended reducing AM dose to 1.5 tab as well Needs follow up with her neurologist outpatient COPD/asthma Stable No exacerbation. Continue home inhalers and nebs DM-2 A1c 7 in Feb Hold home glimiperide, januvia, metformin. SSI while inpatient H/O chronic wound in both feet. Fungal infection Follows with wound clinic Cx from from last admission showed [place]. Continue local antifungal and local wound care. DVT px SQ heparin Code Status Full code Admission and Anticipated Discharge Date Admission Date: September 08, 2022 Subjective Patient is seen and examined at bedside Offers no complaints Discussed with patient's family at bedside No distress on exam Poor historian secondary to Parkinson's/dementia Review of Systems Review of Systems: Other Physical Exam Physical Exam: Physical Exam: Vitals signs as noted above General Appearance:Moderately built and nourished, no apparent distress, Chronic ill appearing Head: normocephalic, Atraumatic Eyes: normal inspection, EOMI Neck: supple, Trachea midline Respiratory/Chest: Normal breath sounds, CTA, No accessory muscle use Cardiovascular: S1, S2, No murmur Abdomen/GI:Soft, Non tender, Bowel sounds present Extremities/Musculoskeletal:normal inspection, no edema Neurologic/Psych:[id number], grossly no focal neurological deficits, follows simple commands, + pill-rolling movement, resting tremor Skin: normal color, warm Results & Data Results & Data Vital Signs (Past 12 Hours) Vital Signs Temp Pulse Pulse Resp BP BP Pulse Ox 09/11/22 15:41 72 09/11/22 15:17 36.5 C 72 20 127/73 94 09/11/22 09:15 09/11/22 11:03 36.8 C 66 20 93/57 L 96 09/11/22 07:12 36.8 C 73 16 143/86 H 94 09/11/22 07:16 70 O2 Del Method 09/11/22 15:41 09/11/22 15:17 Room Air 09/11/22 09:15 Room Air 09/11/22 11:03 Room Air 09/11/22 07:12 Room Air 09/11/22 07:16 Laboratory Results Short CBC 09/11/22 Range/Units 08:13 WBC 6.45 (4.8-10.8) K/ul Hgb 12.2 (12.0-16.0) g/dl Hct 37.1 (37.0-47.0) % Plt Count 299 (130-400) K/uL BMP 09/11/22 08:13 Sodium 139 Potassium 4.2 Chloride 104 Carbon Dioxide 30 BUN 19 Creatinine 0.75 Glucose 167 H Calcium 9.5
[2022-09-11] MEDS: REMOVE RIVASTIGMINE PATCH SCH (18:09)
[2022-09-11] MEDS: RIVASTIGMINE 9.5 MG TD SCH (18:09)
[2022-09-11] MEDS: MIRABEGRON ER 25 MG TAB PO SCH (22:36)
[2022-09-12] MEDS: INSULIN ASPART PER UNIT CHARGE SC SCH ×3 (08:32→17:32)
[2022-09-12] MEDS: CARBIDOPA/LEVODOPA 25/100MG TAB PO SCH ×3 (08:34→17:35)
[2022-09-12] MEDS: UMECLIDINIUM BROMIDE 62.5MCG/BLISTER 7 PUFFS/INHALER INH SCH (08:34)
[2022-09-12] MEDS: DULoxetine HCL 30 MG CAP PO SCH (08:34)
[2022-09-12] MEDS: FLUTICASONE/VILANTEROL 200/25MCG 14 PUFFS/INHALER INH SCH (08:34)
[2022-09-12] MEDS: HEPARIN SOD 5,000 UNIT/0.5 ML VIAL SQ SCH (08:34)
[2022-09-12] MEDS: LOSARTAN POTASSIUM 50 MG TAB PO SCH (08:35)
[2022-09-12] MEDS: ROSUVASTATIN CALCIUM 5 MG TAB PO SCH (08:35)
[2022-09-12] MEDS: CLOPIDOGREL BISULFATE 75 MG TAB PO SCH (08:35)
[2022-09-12] MEDS: hydroCHLOROthiazide 25 MG TAB PO SCH (08:35)
[2022-09-12] MEDS: BISOPROLOL FUMARATE 5 MG TAB PO SCH (08:35)
[2022-09-12] MEDS: NITROFURANTOIN MONOHYDRATE 100 MG CAP PO SCH (08:35)
[2022-09-12] MEDS: ASPIRIN 81 MG ECTAB PO SCH (08:35)
[2022-09-12] MEDS: NYSTATIN POWDER 15GM BTL EXT SCH (08:36)
[2022-09-12] MEDS: PYRIDOXINE HCL 50 MG TAB PO SCH (09:32)
[2022-09-12] MEDS: REMOVE RIVASTIGMINE PATCH SCH (11:42)
--- NOTE | 2022-09-12 13:39 | Magnetic Resonance Report ---
MR foot LT wo/w con HISTORY: Left foot infection between first and third toes. Osteomyelitis TECHNIQUE: Multiplanar multisequence MRI of the left forefoot was performed both before and after the intravenous administration of 7 cc of Gadavist contrast. COMPARISON STUDY: Left toe radiograph 09/11/2022. FINDINGS: Near nondiagnostic evaluation of the left forefoot due to the significant motion artifact. There is again noted dorsal lateral subluxation/dislocation at the second MTP joint. There is associa brayan T2 hyperintense, T1 hypointense signal with enhancement at the base/shaft of the dislocated secon d toe proximal phalanx. There is also minimal edema and enhancement at the head of the second metatar vianca. There is surrounding soft tissue edema with mild soft tissue enhancement at the second MTP joint . No definite fractures identified. A bony bunion is seen at the head of the first metatarsal. There is a metatarsus primus varus and hallux valgus deformity again noted. No loculated fluid collections to suggest an abscess. IMPRESSION: 1. Near nondiagnostic evaluation of the left forefoot due to the significant motion artifact. 2. There is again noted dorsal lateral subluxation/dislocation at the second MTP joint. 3. Abnormal signal intensity and enhancement seen at the base/shaft of the dislocated second toe prox imal phalanx. There is also minimal edema and enhancement at the head of the adjacent second metatars al. These findings could be due to the suspected chronic dislocation/subluxation. An underlying osteo myelitis would be difficult to exclude given the significant motion artifact. 4. Additional findings as described above. ACT 112: Negative or not required by law. Electronically signed by: Fermin Chavarria M.D. 09/12/2022 1:38 PM
--- NOTE | 2022-09-12 13:56 | Orthopedic Consultation ---
Date of Consultation September 12, 2022 Assessment & Plan (1) Diabetic ulcer of left foot: Patient seen, evaluated, and treated. Reviewed x-rays and MRI images personally and report.. Physical Exam shows no suspicion of osteomyelitis. Will concentrate on continued conservative wound care. Will continue to follow while in house. Thank you for allowing me to participate in the care of this Patient. (2) Acquired foot deformity: History of Present Illness Attending Physician: Scott Rodriguez MD History of Present Illness Patient is 82-year-old female seen at bedside for concern over left foot deformity and associated chronic wound. Patient has a past medical history of Parkinson disease with dementia, history of TIA, diabetes type 2, and hypertension. Patient is known to me through previous admissions at [facility]. Patient lives with her 2 sisters who take care of her.She was brought to ED on 09/07/22 due to unresponsiveness of Patient. Patient seen by wound care for Left foot wound. X-rays taken showed subluxation to 2nd MTPJ of left foot. Due to wound at first interspace an MRI was ordered to r/o OM. Allergies Allergy/AdvReac Type Severity Reaction Status Date / Time fluconazole Allergy Severe hives,rash,respiratory Verified 09/07/22 15:16 difficulty hydrochlorothiazide Allergy Severe Rash Verified 09/07/22 15:16 triamterene Allergy Severe Rash Verified 09/07/22 15:16 erythromycin base Allergy Intermediate n/a, rash Verified 09/07/22 15:16 isosorbide Allergy Intermediate head Verified 09/07/22 15:16 NSAIDS (Non-Steroidal Allergy Intermediate hives,rash Verified 09/07/22 15:16 Anti-Inflamma amifostine Allergy Unknown Unknown Verified 09/07/22 15:16 fluticasone Allergy Unknown Unknown Verified 09/07/22 15:16 lisinopril Allergy Unknown Unknown Verified 09/07/22 15:16 Penicillins Allergy Unknown Unknown Verified 09/07/22 15:16 ethyl alcohol AdvReac Unknown Unknown Verified 09/07/22 15:16 Home Medications Medication Instructions Recorded Confirmed Type albuterol sulfate 90 mcg/actuation 2 puff inhalation BID 02/06/22 09/07/22 History aerosol inhaler carbidopa 25 mg-levodopa 100 mg See Rx Instructions .Route .COMPLEX 02/06/22 09/07/22 History tablet duloxetine 30 mg capsule,delayed 30 mg PO AMHS 02/06/22 09/07/22 History release glimepiride 1 mg tablet 1 mg PO DAILY 02/06/22 09/07/22 History losartan 25 mg tablet 25 mg PO QAM 02/06/22 09/07/22 History metformin 1,000 mg tablet 1,000 mg PO BID 02/06/22 09/07/22 History nitroglycerin 0.4 mg sublingual 0.5 mg sublingual .Q5MIN PRN Chest 02/06/22 09/07/22 History tablet (Nitrostat) Pain rivastigmine 9.5 mg/24 hour 1 patch topical .Q24HR 02/06/22 09/07/22 History transdermal patch umeclidinium 62.5 mcg/actuation 1 inh inhalation QAM 02/06/22 09/07/22 History blister powder for inhalation (Incruse Ellipta) aspirin 81 mg tablet,delayed 81 mg PO QAM 06/15/22 09/07/22 History release budesonide-formoterol HFA 160 2 puff inhalation BID 06/15/22 09/07/22 History mcg-4.5 mcg/actuation aerosol inhaler rosuvastatin 5 mg tablet 5 mg PO QAM 06/15/22 09/07/22 History bisoprolol 5 1 tab PO DAILY 07/19/22 09/07/22 History mg-hydrochlorothiazide 6.25 mg tablet mirabegron 50 mg tablet,extended 50 mg PO QAM 07/19/22 09/07/22 History release 24 hr (Myrbetriq) sitagliptin phosphate 100 mg 100 mg PO QAM 07/19/22 09/07/22 History tablet (Januvia) codeine 10 mg-guaifenesin 100 mg/5 5 ml PO Q4H PRN Cough 09/07/22 09/07/22 History mL oral liquid Patient History Medical History Anxiety Asthma CAD (coronary artery disease) COPD (chronic obstructive pulmonary disease) COVID-19 Delirium Dementia Diabetes mellitus, type II Generalized weakness GERD (gastroesophageal reflux disease) History of TIA (transient ischemic attack) Hyperlipidemia Hypertension Multiple fractures of ribs of left side Parkinson's disease Transient confusion Surgical History Hx of appendectomy S/P cholecystectomy Stented coronary artery Family History Other Diabetes Heart disease Hypertension Social History Smoking Status: Former smoker Tobacco Type: Cigarettes Cigarettes Per Day: 1 pack/day; Second Hand Exposure: No; Do You Dip or Chew Tobacco: No; Hx Alcohol Use: No Hx Substance Use: No Preferred Language: Guamanian Communication Ability: Impaired Communication Ability Comment: memory loss, confusion at times Visual Impairment: Limited Hearing Ability: Normal Hose Tubing Backer Required: No Beliefs That Will Affect Care: None marital status: / Current Living Situation: Family Current Living Situation Comment: Sister current occupational status: retired 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[place], [place] How many Children do You have: 0 Feels Safe at Home: Yes Safety Concerns: Feels Safe At This Time Diet: regular caffeine: Yes (rare) during the past year weight has: remained stable Assistive Devices: Bedside Commode, Walker and Other Review of Systems Review of Systems: All systems reviewed & are unremarkable except as noted in HPI & below Physical Exam Constitutional: cooperative and comfortable Eyes: normal visual nagel by confrontation Neck: trachea midline Respiratory: normal respiratory effort Cardiovascular: Rate/Rhythm: regular rate and regular rhythm Musculoskeletal: Extremities: + foot abnormality (Hallux abductovalgus, overlapping 1st & 2nd toes. Digital contractures 2-5 ) Bilateral Skin: + ulcer (Left foot first interspace partial thickness wound. No signs of infection) Neurologic: normal touch/pain/proprioception Psychiatric: Orientation: alert and oriented x 3 Results & Data Vital Signs (Past 12 Hours) Vital Signs Temp Pulse Pulse Resp BP BP Pulse Ox 09/12/22 11:19 36.5 C 66 20 123/75 94 09/12/22 07:53 36.7 C 52 L 20 143/79 H 94 09/12/22 07:23 57 L 09/12/22 03:36 35.5 C L 58 L 16 125/68 94 O2 Del Method 09/12/22 11:19 Room Air 09/12/22 07:53 Room Air 09/12/22 07:23 09/12/22 03:36 Room Air Diagnostic Findings MR foot LT wo/w con HISTORY: Left foot infection between first and third toes. Osteomyelitis TECHNIQUE: Multiplanar multisequence MRI of the left forefoot was performed both before and after the intravenous administration of 7 cc of Gadavist contrast. COMPARISON STUDY: Left toe radiograph 09/11/2022. FINDINGS: Near nondiagnostic evaluation of the left forefoot due to the significant motion artifact. There is again noted dorsal lateral subluxation/dislocation at the second MTP joint. There is associated T2 hyperintense, T1 hypointense signal with enhancement at the base/shaft of the dislocated second toe proximal phalanx. There is also minimal edema and enhancement at the head of the second metatarsal. There is surrounding soft tissue edema with mild soft tissue enhancement at the second MTP joint. No definite fractures identified. A bony bunion is seen at the head of the first metatarsal. There is a metatarsus primus varus and hallux valgus deformity again noted. No loculated fluid collections to suggest an abscess. IMPRESSION: 1. Near nondiagnostic evaluation of the left forefoot due to the significant motion artifact. 2. There is again noted dorsal lateral subluxation/dislocation at the second MTP joint. 3. Abnormal signal intensity and enhancement seen at the base/shaft of the dislocated second toe proximal phalanx. There is also minimal edema and enhancement at the head of the adjacent second metatarsal. These findings could be due to the suspected chronic dislocation/subluxation. An underlying osteomyelitis would be difficult to exclude given the significant motion artifact. 4. Additional findings as described above. ACT 112: Negative or not required by law. Electronically signed by: Fermin Chavarria M.D. 09/12/2022 1:38 PM
--- NOTE | 2022-09-12 16:17 | Hospitalist Progress Note ---
Date of Service September 12, 2022 Assessment & Plan (1) Cerebellar stroke: (2) Episode of unresponsiveness: (3) Generalized weakness: (4) Abnormal urinalysis: (5) Asthma-COPD overlap syndrome: (6) Parkinson's disease: (7) Diabetes mellitus, type II: (8) History of TIA (transient ischemic attack): Plan Acute CVA Had an unresponsive episode prior to admission --MRI Brain:acute punctate infarct in the right cerebellum. -- Head and neck CTA:No occlusion, hemodynamically significant stenosis, or dissection in the major cervical arteries. No occlusion, hemodynamically significant stenosis, aneurysm, dissection, or arteriovenous malformation in the major intracranial arteries. --ECHO: EF 55 to 60%. No ASD, PFO is not assessed --Recent B12 level normal. TSH normal. Respi biofire negative. Last HbA1C: 7.0 Continue DAPT for 3 weeks, then Plavix ongoing Considering age and LDL of 42, will continue home dose of rosuvastatin 5mg daily [employer] eval Continue PT OT Needs ZIO monitoring as outpatient Needs follow-up with neurology upon discharge Suspected osteomyelitis of second toe/left foot Second left toe dislocation H/O Diabetic ulcer of left foot --Toe X ray:Confirmation of the second toe dislocation. No acute fracture identified. Soft tissue swelling with suggestion of cortical erosions within the second metatarsal phalangeal joint and mild periosteal elevation. Considering patient history of chronic wounds of the feet, findings may represent underlying osteomyelitis. Correlate with clinical exam findings. -- MRI Foot:Near nondiagnostic evaluation of the left forefoot due to the signif icant motion artifact. There is again noted dorsal lateral subluxation/dislocation at the second MTP joint. Abnormal signal intensity and enhancement seen at the base/shaft of the dislocated second toe proximal phalanx. There is also minimal edema and enhancement at the head of the adjacent second metatarsal. These findings could be due to the suspected chronic dislocation/subluxation. An underlying osteomyelitis would be difficult to exclude given the significant motion artifact. --Appreciate Podiatry Input: No suspicion for osteomyelitis, conservative management Continue antifungal foot web spaces Advised to follow-up with wound clinic as outpatient Hypertension BP Variable Continue bisoprolol, losartan, HCTZ Monitor BP--adjust medications as able UTI UCx :Enterococcus faecalis Currently on Macrobid Per Prior Provider Parkinson's disease with dementia Stable Recently saw OP neuro 1 week back- no meds were changed. Sisters reported patient takes 2 tabs of carbidopa-levodopa at 8am, 1.5 tab at noon/4pm/8pm Neurologist recommended reducing AM dose to 1.5 tab as well Needs follow up with her neurologist outpatient COPD/asthma Stable No exacerbation. Continue home inhalers and nebs DM-2 A1c 7 in Feb Hold home glimiperide, januvia, metformin. SSI while inpatient H/O chronic wound in both feet. Fungal infection Follows with wound clinic Cx from from last admission showed [place]. Continue local antifungal and local wound care. DVT px SQ heparin Code Status Full code Disposition Rehab Admission and Anticipated Discharge Date Admission Date: September 08, 2022 Subjective Patient is seen and examined at bedside Sitting in chair comfortably during my encounter Poor historian secondary to Parkinson's/dementia Offers no new complaints Denies any chest pain, dyspnea, dizziness, nausea, abdominal pain Discussed with patient's family at bedside Plan to be discharged to SNF today Review of Systems Review of Systems: All systems reviewed & are unremarkable except as noted in Subjective Physical Exam Physical Exam: Physical Exam: Vitals signs as noted above General Appearance:Moderately built and nourished, no apparent distress, Chronic ill appearing Head: normocephalic, Atraumatic Eyes: normal inspection, EOMI Neck: supple, Trachea midline Respiratory/Chest: Normal breath sounds, CTA, No accessory muscle use Cardiovascular: S1, S2, No murmur Abdomen/GI:Soft, Non tender, Bowel sounds present Extremities/Musculoskeletal:normal inspection, no edema Neurologic/Psych:[id number], grossly no focal neurological deficits, follows simple commands, + pill-rolling movement, resting tremor Skin: normal color, warm Results & Data Results & Data Vital Signs (Past 12 Hours) Vital Signs Temp Pulse Pulse Resp BP BP Pulse Ox 09/12/22 15:47 72 09/12/22 08:30 09/12/22 15:21 108/62 09/12/22 14:56 36.4 C L 73 20 98/43 L 95 09/12/22 11:19 36.5 C 66 20 123/75 94 09/12/22 07:53 36.7 C 52 L 20 143/79 H 94 09/12/22 07:23 57 L O2 Del Method 09/12/22 15:47 09/12/22 08:30 Room Air 05/18/23 15:21 09/12/22 14:56 Room Air 09/12/22 11:19 Room Air 09/12/22 07:53 Room Air 09/12/22 07:23
--- NOTE | 2022-09-12 16:58 | Discharge Summary ---
Date of Service September 12, 2022 Admission HPI Per Admitting Provider 82-year-old female with history of Parkinson disease with dementia, history of TIA, diabetes type 2, hypertension, who presented to ED with an episode of unresponsiveness and weakness at home today. Patient lives with her 2 sisters who take care of her. History taken from patient and sister at bedside. Patient is currently back to baseline. Patient went to bed fine last night, and was normal when she woke up at 4:30 AM for bathroom. She then went back to sleep. Around 9 am, her sisters tried to wake her up for breakfast and medications but were unable to wake her up, despite trying for about 45 minutes. States that it was as if she was not there. Patient states she knew but could not wake up. This was very unusual and never happened before. Later, they assisted her to the bathroom but were unable to get her off the commode because of weakness. This was also unusual, as she has home PT two times per week and has been improving. There was no seizure like activities, no stiffness or abnormal activities noted. Does endorses burning urination for couple weeks and lower abdominal pain. No fever, chills, N/V/chest pain, SOB. Her medical conditions have been stable. There has been no new medications. She saw neurology Dr Purvis on 08/29, seemed to be doing well and no meds were changed at that time. Her sisters check her vitals and fingerstick at home but it was not checked this morning during her unresponsive episode. She does not smoke or drink alcohol. No drug use. Admission Exam Per Admitting Provider General: Lying comfortably in bed, not in distress, on room air HEENT: EOMI, GILBERT, MMM Chest: Decreased breath sounds bilaterally, no wheezes or crackles CVS: Regular rate and rhythm, normal heart sounds, no murmur Abdomen: Soft, non tender, not distended, normal bowel sounds Neuro: Awake, alert, orientedx2, conversing well, non focal neuro exam. Strength intact on all extremities, sensation grossly intact, follows all commands. Extremities: No cyanosis, clubbing or edema. Toes deformed. Left toes with dressing- maceration between first and second great toe- no infection/cellulitis noted. Principal Diagnosis Acute cerebrovascular accident Second left toe dislocation Urinary tract infection Parkinson's disease with dementia Discharge Data Allergies Allergy/AdvReac Type Severity Reaction Status Date / Time fluconazole Allergy Severe hives,rash,respiratory Verified 09/07/22 15:16 difficulty hydrochlorothiazide Allergy Severe Rash Verified 09/07/22 15:16 triamterene Allergy Severe Rash Verified 09/07/22 15:16 erythromycin base Allergy Intermediate n/a, rash Verified 09/07/22 15:16 isosorbide Allergy Intermediate head Verified 09/07/22 15:16 NSAIDS (Non-Steroidal Allergy Intermediate hives,rash Verified 09/07/22 15:16 Anti-Inflamma amifostine Allergy Unknown Unknown Verified 09/07/22 15:16 fluticasone Allergy Unknown Unknown Verified 09/07/22 15:16 lisinopril Allergy Unknown Unknown Verified 09/07/22 15:16 Penicillins Allergy Unknown Unknown Verified 09/07/22 15:16 ethyl alcohol AdvReac Unknown Unknown Verified 09/07/22 15:16 Consultations 09/07/22 15:59 ED Decision to Admit Stat 09/07/22 22:04 Consult Neurology Routine 09/11/22 13:40 Consult Podiatry Routine Procedures Performed Laboratory Results WBC 6.45 K/ul (4.8-10.8) 09/11/22 08:13 RBC 4.22 M/uL (4.20-5.40) 09/11/22 08:13 Hgb 12.2 g/dl (12.0-16.0) 09/11/22 08:13 Hct 37.1 % (37.0-47.0) 09/11/22 08:13 MCV 87.9 fL (80.0-100.0) 09/11/22 08:13 MCH 28.9 pg (25.0-34.0) 09/11/22 08:13 MCHC 32.9 g/dL (32.0-36.0) 09/11/22 08:13 RDW Std Deviation 49.2 fL (36.4-46.3) H 09/11/22 08:13 RDW Coeff of Jayden 15.4 % (11.5-14.5) H 09/11/22 08:13 Plt Count 299 K/uL (130-400) 09/11/22 08:13 MPV 9.5 fL (9.4-12.4) 09/11/22 08:13 Immature Gran % (Auto) 0.3 % 09/07/22 10:49 Neut % (Auto) 62.5 % 09/07/22 10:49 Lymph % (Auto) 26.1 % 09/07/22 10:49 [place] % (Auto) 7.9 % 09/07/22 10:49 Eos % (Auto) 2.7 % 09/07/22 10:49 Baso % (Auto) 0.5 % 09/07/22 10:49 Neut # (Auto) 3.90 K/uL (1.40-6.50) 09/07/22 10:49 Lymph # (Auto) 1.63 K/uL (1.2-3.4) 09/07/22 10:49 [place] # (Auto) 0.49 K/uL (0.11-0.59) 09/07/22 10:49 Eos # (Auto) 0.17 K/uL (0-0.50) 09/07/22 10:49 Baso # (Auto) 0.03 K/uL (0-0.2) 09/07/22 10:49 Immature Gran # (Auto) 0.02 K/uL (0.01-0.20) 09/07/22 10:49 PT 10.9 Seconds (9.0-12.0) 09/07/22 10:49 INR 1.0 (0.9-1.1) 09/07/22 10:49 Sodium 139 mmol/L (136-145) 09/11/22 08:13 Potassium 4.2 mmol/L (3.5-5.1) 09/11/22 08:13 Chloride 104 mmol/L (98-107) 09/11/22 08:13 Carbon Dioxide 30 mmol/L (21-32) 09/11/22 08:13 Anion Gap 5 (3-11) 09/11/22 08:13 BUN 19 mg/dl (6-23) 09/11/22 08:13 Creatinine 0.75 mg/dl (0.6-1.2) 09/11/22 08:13 Est Cr Clr Drug Dosing 57.2 ml/min 09/11/22 08:13 Est GFR ( Amer) 86.6 ml/min 09/11/22 08:13 Est GFR (Non-Af Amer) 74.8 ml/min 09/11/22 08:13 BUN/Creatinine Ratio 25.3 (10-20) H 09/11/22 08:13 Glucose 167 mg/dl (70-99(Fasting)) H 09/11/22 08:13 POC Glucose 263 mg/dl (70-99) H 09/12/22 16:31 Calcium 9.5 mg/dl (8.6-10.3) 09/11/22 08:13 Phosphorus 3.1 mg/dl (2.5-4.9) 09/09/22 08:41 Magnesium 2.0 mg/dl (1.7-2.4) 09/09/22 08:41 Total Bilirubin 0.5 mg/dl (0.2-1.0) 09/07/22 10:49 AST 16 U/L (13-39) 09/07/22 10:49 ALT 13 U/L (7-52) 09/07/22 10:49 Alkaline Phosphatase 48 U/L (34-104) 09/07/22 10:49 Troponin I High Sens 5.7 pg/ml (0-14) 09/07/22 10:49 Total Protein 6.1 gm/dl (6.0-8.3) 09/07/22 10:49 Albumin 3.8 gm/dl (3.4-5.0) 09/07/22 10:49 Globulin 2.3 gm/dl (2.5-4.0) L 09/07/22 10:49 Albumin/Globulin Ratio 1.7 (0.9-2) 09/07/22 10:49 Triglycerides 120 mg/dl (0-150) 09/08/22 07:32 Cholesterol 125 mg/dl (0-200) 09/08/22 07:32 LDL Cholesterol, Calc 42 mg/dl 09/08/22 07:32 VLDL Cholesterol, Calc 24 mg/dl (0-30) 09/08/22 07:32 HDL Cholesterol 59 mg/dl 09/08/22 07:32 Cholesterol/HDL Ratio 2.1 (0-5) 09/08/22 07:32 Lipase 30 U/L (11-82) 09/07/22 10:49 TSH 0.443 uIu/ml (0.300-4.500) 09/07/22 10:49 Urine Color Yellow 09/07/22 10:52 Urine Appearance Clear (Clear) 09/07/22 10:52 Urine pH 7.0 (4.5-7.5) 09/07/22 10:52 Ur Specific [place] 1.012 (1.000-1.030) 09/07/22 10:52 Urine Protein Negative (Negative) 09/07/22 10:52 Urine Glucose (UA) Negative (Negative) 09/07/22 10:52 Urine Ketones Negative (Negative) 09/07/22 10:52 Urine Blood Negative (Negative) 09/07/22 10:52 Urine Nitrite Negative (Negative) 09/07/22 10:52 Urine Bilirubin Negative (Negative) 09/07/22 10:52 Urine Urobilinogen Negative (Negative) 09/07/22 10:52 Ur Leukocyte Esterase Trace (Negative) H 09/07/22 10:52 Urine WBC (Auto) 5-10 /hpf (0-5) H 09/07/22 10:52 Urine RBC (Auto) 0-4 /hpf (0-4) 09/07/22 10:52 U Hyaline Cast (Auto) 0 /lpf (0-5) 09/07/22 10:52 U Epithel Cells (Auto) 5-10 /lpf (0-5) H 09/07/22 10:52 Urine Bacteria (Auto) 1+ (Negative) H 09/07/22 10:52 Ur Renal Epithelial Cell Not Reportable 09/07/22 10:52 Adenovirus (PCR) Not Detected (NotDetected) 09/07/22 13:11 B. pertussis DNA (PCR) Not Detected (NotDetected) 09/07/22 13:11 B.parapertussis DNA PCR Not Detected (NotDetected) 09/07/22 13:11 C. pneumoniae DNA (PCR) Not Detected (NotDetected) 09/07/22 13:11 Coronavirus OC43 (PCR) Not Detected (NotDetected) 09/07/22 13:11 Coronavirus HKU1 (PCR) Not Detected (NotDetected) 09/07/22 13:11 Coronavirus 229E (PCR) Not Detected (NotDetected) 09/07/22 13:11 SARS-CoV-2 (PCR) Not Detected (NotDetected) 09/07/22 13:11 Coronavirus NL63 (PCR) Not Detected (NotDetected) 09/07/22 13:11 Human Metapneumovir PCR Not Detected (NotDetected) 09/07/22 13:11 Influenza Type A (PCR) Not Detected (NotDetected) 09/07/22 13:11 Influenza Type B (PCR) Not Detected (NotDetected) 09/07/22 13:11 M. pneumoniae (PCR) Not Detected (NotDetected) 09/07/22 13:11 Parainfluenza 1 (PCR) Not Detected (NotDetected) 09/07/22 13:11 Parainfluenza 2 (PCR) Not Detected (NotDetected) 09/07/22 13:11 Parainfluenza 3 (PCR) Not Detected (NotDetected) 09/07/22 13:11 Parainfluenza 4 (PCR) Not Detected (NotDetected) 09/07/22 13:11 RSV (PCR) Not Detected (NotDetected) 09/07/22 13:11 Entero/Rhino (PCR) Not Detected (NotDetected) 09/07/22 13:[address] 09/07/22 10:45 CT cervical spine wo con CLINICAL HISTORY: fall TECHNIQUE: Multidetector row helical CT of the cervical spine was performed without administration of intravenous contrast. Coronal and sagittal reformations were obtained. Automated dose lowering techniques and/or adjustment according to patient size were utilized for this exam. Comparison: None available at the time of this dictation. FINDINGS: No acute fractures or subluxations are identified. Degenerative changes are seen in the visualized spine. The alignment is normal. Heterogeneous enlarged thyroid is noted. IMPRESSION: Degenerative changes without evidence of acute bony injury. ACT 112: Negative or not required by law. Electronically signed by: Teddy Oakes M.D. 09/07/2022 11:18 AM Chest X-Ray 09/07/22 10:45 XR chest 1V portable CLINICAL HISTORY: fall TECHNIQUE: Single frontal radiograph of the chest was obtained. Comparison: Comparison is made to chest radiograph 07/19/2022 FINDINGS: No lines and tubes are seen. Calcified aortic knob is seen. The lungs are clear. No evidence of pleural effusion or pneumothorax. IMPRESSION: No acute chest disease. ACT 112: Negative or not required by law. Electronically signed by: Teddy Oakes M.D. 09/07/2022 11:[address] 09/07/22 10:45 CT head/brain wo con CLINICAL HISTORY: confusion, weakness, fall Technique: Contiguous axial CT images of the head were acquired from the base of the skull to the vertex without intravenous contrast administration. Images were viewed in brain, subdural and bone windows. Automated dose lowering techniques and/or adjustment according to patient size were utilized for this exam. Comparison: None available at the time of this dictation. Findings: Areas of decreased attenuation are present in the periventricular and subcortical white matter bilaterally consistent with small vessel ischemic disease. Generalized cerebral atrophy with commensurate enlargement of the ventricles, sulci, and cisterns is also present. There is no acute intracranial hemorrhage or evidence of acute territorial infarction. No shift of the midline structures, mass effect, or extra-axial abnormalities are shown. Atherosclerotic calcifications are present in the intracranial segments of the internal carotid arteries. Imaged portions of the paranasal sinuses and mastoid air cells are clear. The orbits appear normal. There are no acute fractures of the calvaria or scalp swelling. Impression: No acute intracranial hemorrhage, no evidence of acute territorial infarction or other acute intracranial disease process. ACT 112: Negative or not required by law. Electronically signed by: Teddy Oakes M.D. 09/07/2022 11:13 AM Pelvis X-Ray 09/07/22 10:45 XR pelvis 1-2V routine CLINICAL HISTORY: fall TECHNIQUE: A single frontal view of the pelvis was obtained. Comparison: Comparison is made to pelvis radiograph 04/13/2023 FINDINGS: There is no evidence of an acute fracture. Degenerative changes are seen in the hip joints and lumbar spine. No soft tissue abnormality is seen. IMPRESSION: Degenerative changes without evidence of acute abnormality. ACT 112: Negative or not required by law. Electronically signed by: Teddy Oakes M.D. 09/07/2022 12:02 PM Brain MRI 09/07/22 15:00 MR brain wo con CLINICAL HISTORY: episode of AMS/unresponsiveness/weakness TECHNIQUE: Multiplanar and multisequence MR images of the brain were obtained without intravenous contrast. Comparison: Comparison is made to MRI brain 02/06/2022 FINDINGS: No abnormal restricted diffusion is identified. Foci of T2 and FLAIR hyperintensity are noted in the paraventricular areas consistent with chronic small vessel ischemic disease. Ex vacuo ventriculomegaly and sulcal enlargement is noted compatible with diffuse volume loss. No mass is seen. There is no mass effect or midline shift. There is no evidence of acute intraparenchymal hemorrhage. No extra axial fluid collections are seen. The corpus callosum, pituitary gland, and cerebellar tonsils appear grossly unremarkable. Flow voids of the major intracranial arterial vessels are identified. The imaged portions of the paranasal sinuses, mastoid air cells, and orbits are unremarkable. IMPRESSION: No evidence of acute infarct. Chronic volume loss and white matter changes as above. ACT 112: Negative or not required by law. Electronically signed by: Teddy Oakes M.D. 09/07/2022 8:48 PM Head CTA 09/08/22 11:33 CT angio head w con, CT angio neck with con CLINICAL HISTORY: Stroke work up TECHNIQUE: CT angiography of the head and neck was performed following intravenous administration of iodinated contrast. Coronal and sagittal MIPS were obtained from the axial data set and were submitted for review. Automated dose lowering techniques and/or adjustment according to patient size were utilized for this examination. All measurements were calculated based on NASCET criteria. CT DOSE: 492.19 mGy.cm Comparison: None available at the time of this dictation. FINDINGS: Emphysema is seen. There is a 3 mm nodule in the right upper lobe (series 4 image 52). Heterogeneous thyroid is seen without discrete nodules. CTA Neck: Direct origin of the left vertebral artery from the aortic arch is seen. There is no significant atherosclerotic plaque in the aortic arch or the origins of the innominate, left common carotid, and left subclavian arteries. There is mild calcified atherosclerotic plaque at the bifurcation of the bilateral common carotid arteries without hemodynamically significant flow stenosis. There is no dissection present. The vertebral arteries are codominant. CTA Head: The anterior and posterior cerebral circulations are patent. origin of the left posterior cerebral artery is seen. Bilateral carotid atherosclerotic calcifications are seen without hemodynamically significant stenosis. IMPRESSION: 1. No occlusion, hemodynamically significant stenosis, or dissection in the major cervical arteries. 2. No occlusion, hemodynamically significant stenosis, aneurysm, dissection, or arteriovenous malformation in the major intracranial arteries. Assessment of stenosis of the internal carotid arteries is based on NASCET criteria. ACT 112: Negative or not required by law. Electronically signed by: Teddy Oakes M.D. 09/08/2022 1:02 PM Neck CTA 09/08/22 11:33 CT angio head w con, CT angio neck with con CLINICAL HISTORY: Stroke work up TECHNIQUE: CT angiography of the head and neck was performed following intravenous administration of iodinated contrast. Coronal and sagittal MIPS were obtained from the axial data set and were submitted for review. Automated dose lowering techniques and/or adjustment according to patient size were utilized for this examination. All measurements were calculated based on NASCET criteria. CT DOSE: 492.19 mGy.cm Comparison: None available at the time of this dictation. FINDINGS: Emphysema is seen. There is a 3 mm nodule in the right upper lobe (series 4 image 52). Heterogeneous thyroid is seen without discrete nodules. CTA Neck: Direct origin of the left vertebral artery from the aortic arch is seen. There is no significant atherosclerotic plaque in the aortic arch or the origins of the innominate, left common carotid, and left subclavian arteries. There is mild calcified atherosclerotic plaque at the bifurcation of the bilateral common carotid arteries without hemodynamically significant flow stenosis. There is no dissection present. The vertebral arteries are codominant. CTA Head: The anterior and posterior cerebral circulations are patent. origin of the left posterior cerebral artery is seen. Bilateral carotid atherosclerotic calcifications are seen without hemodynamically significant stenosis. IMPRESSION: 1. No occlusion, hemodynamically significant stenosis, or dissection in the major cervical arteries. 2. No occlusion, hemodynamically significant stenosis, aneurysm, dissection, or arteriovenous malformation in the major intracranial arteries. Assessment of stenosis of the internal carotid arteries is based on NASCET criteria. ACT 112: Negative or not required by law. Electronically signed by: Teddy Oakes M.D. 09/08/2022 1:02 PM Carotid Doppler Study 09/08/22 22:05 ULTRASOUND OF THE CAROTID ARTERIES CLINICAL HISTORY: cva COMPARISON: None available at the time of this dictation. TECHNIQUE: Real-time, grayscale, and color Doppler sonography of the carotid arteries is performed. Images are reviewed in the transverse and longitudinal planes. FINDINGS: The carotid arteries are patent bilaterally and demonstrate antegrade flow. There is mild atherosclerotic plaque on the right and mild atherosclerotic plaque on the left. Normal doppler arterial waveforms are seen throughout. Velocity measurements are listed below. Common carotid peak systolic velocity (cm/sec): RIGHT: 54 LEFT: 53 ICA peak systolic velocity (cm/sec): RIGHT: 69 LEFT: 73 ICA/CC peak systolic ratio: RIGHT: 1.3 LEFT: 1.4 Antegrade flow was shown in the vertebral arteries. The external carotid arteries are patent. IMPRESSION: 1. There is no sonographic evidence of hemodynamically significant stenosis in the right or left carotid arterial system. 2. Antegrade flow is shown in the vertebral arteries. Society of Radiologists in Ultrasound consensus guidelines: Normal: ICA PSV is <125 cm/sec and no plaque or intimal thickening is visible sonographically additional criteria include ICA/CCA PSV ratio <2.0 and ICA EDV <40 cm/sec <50% ICA stenosis: ICA PSV is <125 cm/sec and plaque or intimal thickening is visible sonographically additional criteria include ICA/CCA PSV ratio <2.0 and ICA EDV <40 cm/sec 50-69% ICA stenosis: ICA PSV is 125-230 cm/sec and plaque is visible sonographically additional criteria include ICA/CCA PSV ratio of 2.0-4.0 and ICA EDV of 40-100 cm/sec ?70% ICA stenosis but less than near occlusion: ICA PSV is >230 cm/sec and visible plaque and luminal narrowing are seen at gutierrez-scale and color Doppler ultrasound (the higher the Doppler parameters lie above the threshold of 230 cm/sec, the greater the likelihood of severe disease) additional criteria include ICA/CCA PSV ratio >4 and ICA EDV >100 cm/sec ACT 112: Negative or not required by law. Electronically signed by: Teddy Oakes M.D. 09/08/2022 2:02 PM Foot X-Ray 09/11/22 12:02 LEFT FOOT 3 VIEWS CLINICAL HISTORY: Foot infection. FINDINGS: 3 views of the left foot are compared to study dated 07/19/2022. The skeletal structures are osteopenic. No acute fracture is clearly identified. There is hallux valgus, with moderate to severe osteoarthritic change at the first metatarsophalangeal joint. Moderate osteoarthritic change is noted at the tarsometatarsal articulations. There is a large plantar heel spur. Degenerative spurring is seen along the dorsal aspect of the tarsal bones. There is subluxation/dislocation at the second metatarsophalangeal joint. This represents a change from 07/19/2022. No bony erosion or periostitis is identified. Mild soft tissue swelling is seen throughout the foot. No soft tissue gas is identified. IMPRESSION: 1. No acute fracture is clearly seen. 2. There is subluxation/dislocation at the second metatarsophalangeal joint. This represents a change from 07/19/2022. Correlate clinically. Consider dedicated views of the second toe for better visualization. 3. Osteopenia with degenerative change, hallux valgus, and a large plantar heel spur as above. 4. Mild soft tissue swelling is seen throughout the foot. Electronically signed by: Bal Bishop M.D. 09/11/2022 1:00 PM Toe X-Ray 09/11/22 13:30 XR toe(s) LT min 2V HISTORY: 82 years-old Female 2nd toe dislocation acute pain of the left second toe COMPARISON: Radiographs 09/11/2022, radiographs 07/19/2022 TECHNIQUE: 3 views of the left second toe FINDINGS: Demineralized appearance of the bones. Hallux valgus with moderate first MTP joint osteoarthritis. Cortical thickening and irregularity within the base of the second proximal phalanx with dislocation and apex medial angulation of the second metatarsophalangeal joint. Few soft tissue swelling. Equivocal bony erosions are noted within the second metatarsal phalangeal joint. IMPRESSION: 1. Confirmation of the second toe dislocation. No acute fracture identified. 2. Soft tissue swelling with suggestion of cortical erosions within the second metatarsal phalangeal joint and mild periosteal elevation. Considering patient history of chronic wounds of the feet, findings may represent underlying osteomyelitis. Correlate with clinical exam findings. ACT 112: Negative or not required by law. The above report was generated using voice recognition software. It may contain grammatical, syntax or spelling errors. Electronically signed by: Henry Rodney M.D. 09/11/2022 3:38 PM Foot MRI 09/11/22 17:02 MR foot LT wo/w con HISTORY: Left foot infection between first and third toes. Osteomyelitis TECHNIQUE: Multiplanar multisequence MRI of the left forefoot was performed both before and after the intravenous administration of 7 cc of Gadavist contrast. COMPARISON STUDY: Left toe radiograph 09/11/2022. FINDINGS: Near nondiagnostic evaluation of the left forefoot due to the significant motion artifact. There is again noted dorsal lateral subluxation/dislocation at the second MTP joint. There is associated T2 hyperintense, T1 hypointense signal with enhancement at the base/shaft of the dislocated second toe proximal phalanx. There is also minimal edema and enhancement at the head of the second metatarsal. There is surrounding soft tissue edema with mild soft tissue enhancement at the second MTP joint. No definite fractures identified. A bony bunion is seen at the head of the first metatarsal. There is a metatarsus primus varus and hallux valgus deformity again noted. No loculated fluid collections to suggest an abscess. IMPRESSION: 1. Near nondiagnostic evaluation of the left forefoot due to the significant motion artifact. 2. There is again noted dorsal lateral subluxation/dislocation at the second MTP joint. 3. Abnormal signal intensity and enhancement seen at the base/shaft of the dislocated second toe proximal phalanx. There is also minimal edema and enhancement at the head of the adjacent second metatarsal. These findings could be due to the suspected chronic dislocation/subluxation. An underlying osteomyelitis would be difficult to exclude given the significant motion artifact. 4. Additional findings as described above. ACT 112: Negative or not required by law. Electronically signed by: Fermin Chavarria M.D. 09/12/2022 1:38 PM Ordered Studies 09/07/22 10:45 CT cervical spine wo con Stat CT head/brain wo con Stat 09/07/22 15:00 MRI Brain [MR brain wo con] Routine 09/08/22 11:33 CT angio head w con Urgent CT angio neck with con Urgent 09/08/22 22:05 US carotid doppler BI Routine 09/11/22 17:02 MR foot LT wo/w con Routine Hospital Course (1) Cerebellar stroke: (2) Episode of unresponsiveness: (3) Generalized weakness: (4) Abnormal urinalysis: (5) Asthma-COPD overlap syndrome: (6) Parkinson's disease: (7) Diabetes mellitus, type II: (8) History of TIA (transient ischemic attack): Plan Acute CVA Had an unresponsive episode prior to admission --MRI Brain:acute punctate infarct in the right cerebellum. -- Head and neck CTA:No occlusion, hemodynamically significant stenosis, or dissection in the major cervical arteries. No occlusion, hemodynamically significant stenosis, aneurysm, dissection, or arteriovenous malformation in the major intracranial arteries. --ECHO: EF 55 to 60%. No ASD, PFO is not assessed --Recent B12 level normal. TSH normal. Respi biofire negative. Last HbA1C: 7.0 Continue DAPT for 3 weeks, then Plavix ongoing Considering age and LDL of 42, will continue home dose of rosuvastatin 5mg daily [employer]GER eval Continue PT OT Needs ZIO monitoring as outpatient Needs follow-up with neurology upon discharge Suspected osteomyelitis of second toe/left foot Second left toe dislocation H/O Diabetic ulcer of left foot --Toe X ray:Confirmation of the second toe dislocation. No acute fracture identified. Soft tissue swelling with suggestion of cortical erosions within the second metatarsal phalangeal joint and mild periosteal elevation. Considering patient history of chronic wounds of the feet, findings may represent underlying osteomyelitis. Correlate with clinical exam findings. -- MRI Foot:Near nondiagnostic evaluation of the left forefoot due to the significant motion artifact. There is again noted dorsal lateral subluxation/dislocation at the second MTP joint. Abnormal signal intensity and enhancement seen at the base/shaft of the dislocated second toe proximal phalanx. There is also minimal edema and enhancement at the head of the adjacent second metatarsal. These findings could be due to the suspected chronic dislocation/subluxation. An underlying osteomyelitis would be difficult to exclude given the significant motion artifact. --Appreciate Podiatry Input: No suspicion for osteomyelitis, conservative management Continue antifungal foot web spaces Advised to follow-up with wound clinic as outpatient Hypertension BP Variable Continue bisoprolol, losartan, HCTZ Monitor BP--adjust medications as able UTI UCx :Enterococcus faecalis Currently on Macrobid Per Prior Provider Parkinson's disease with dementia Stable Recently saw OP neuro 1 week back- no meds were changed. Sisters reported patient takes 2 tabs of carbidopa-levodopa at 8am, 1.5 tab at noon/4pm/8pm Neurologist recommended reducing AM dose to 1.5 tab as well Needs follow up with her neurologist outpatient COPD/asthma Stable No exacerbation. Continue home inhalers and nebs DM-2 A1c 7 in May Hold home glimiperide, januvia, metformin. SSI while inpatient H/O chronic wound in both feet. Fungal infection Follows with wound clinic Cx from from last admission showed [place]. Continue local antifungal and local wound care. DVT px SQ heparin Code Status Full code Disposition Rehab Total Time Total Time Spent Total Time Spent (In Minutes): 56 minutes Discharge Plan Discharge Items Patient Disposition: Transfer Inpatient Rehab Fac Reason For Visit: EPISODE OF UNRESPONSIVENESS/WEAKNESS Discharge Diagnosis: Acute cerebrovascular accident Second left toe dislocation Urinary tract infection Parkinson's disease with dementia Activity: Per Instructions section Exercise/Sports: Gradually increase as tolerated Non-emergency contact: Primary Care Provider, Specialist and Neurologist Call non-emergency contact if: you have any medication questions, your symptoms worsen, your pain is concerning for you and you have a fever Follow-up/Referrals: Jag Stover MD [Primary Care Provider] - Diet: Carb Consistent or DM2 and Heart Healthy Addtl Attending Provider Instructions: Follow-up with your primary care physician in 1 week Follow-up with your neurologist in 4 weeks Follow-up with wound clinic as advised -- Get ZIO monitor arranged as outpatient to rule out arrhythmias. --Continue nitrofurantoin for 4 more days to complete course for urinary tract infection --- Continue dual antiplatelet therapy with aspirin and Plavix for 16 more days and then transition to Plavix 75 mg daily monotherapy. --Continue nystatin twice a day for the left toe webspaces fungal infection. --Monitor your blood pressure regularly as advised. Discuss with your physician for further adjustment of blood pressure medications as needed. Seek immediate medical attention if your symptoms reoccur or worsen Please take all medications as instructed on discharge list below. Please call if you have any questions or problems. You can reach a [facility] [address] hospitalist on duty at [facility] 24 hours a day by calling [phone] Risk Factors for Stroke: You can reduce your chances of stroke by working with your medical provider to adopt a healthy lifestyle. Some specific ways to lower your chance of stroke are: * If you are a smoker, now is the time to stop smoking cigarettes * If you are diabetic, improve the control of your blood sugars * Avoid excessive amounts of alcohol * Control high blood pressure * Lose weight if you are overweight * Be sure to lead an active lifestyle * Eat a healthy diet low in salt, cholesterol and fat You should know about other risk factors for stroke that you are unable to control. These include: * Age 55 years or older * Male gender * Certain racial groups: , or / * Family History of Stroke, Mini stroke or Heart Attack * Sickle Cell Disease Follow Up: It is important for you to keep your follow up appointments with your medical provider. Who to Call and When: Medical Emergencies: Call 911 immediately if you experience any of the following warning signs and symptoms of Stroke: * Sudden numbness or weakness of the face, arm or leg, especially on one side of the body * Sudden confusion, trouble speaking or understanding * Sudden trouble seeing in one or both eyes * Sudden trouble walking, dizziness, loss of balance or coordination * Sudden severe headache with no cause Do not delay calling 911 if you experience any warning signs or symptoms of a stroke. Delay in seeking medical attention may affect what treatments can be given to you. . Pending Studies at Discharge: No Stand-Alone Forms: My [facility] InboxFever, Medications to Prevent Stroke Skilled Items Patient informed of condition?: Yes DNR: No Discharge Level of Care: Acute rehab Communicable Disease: No Discharge Prognosis: Stable Lines: None Urinary Catheter: No Medications and DC Order Prescriptions: New clopidogrel 75 mg Tablet 75 mg PO QAM Qty: 30 0RF nitrofurantoin monohyd/m-cryst 100 mg Capsule 100 mg PO BID Qty: 9 0RF pyridoxine (vitamin B6) 50 mg Tablet 50 mg PO DAILYBL Qty: 30 0RF nystatin [Nystop] 100,000 unit/gram Powder 1 applic EXT BID Qty: 0 0RF Continued rosuvastatin 5 mg tablet 5 mg PO QAM budesonide-formoterol 160-4.5 mcg/actuation HFA aerosol inhaler 2 puff INHALATION BID aspirin 81 mg Tablet,Delayed Release (Dr/Ec) 81 mg PO QAM bisoprolol-hydrochlorothiazide 5-6.25 mg tablet 1 tab PO DAILY Myrbetriq 50 mg tablet extended release 24 hr 50 mg PO QAM Januvia 100 mg tablet 100 mg PO QAM metformin 1,000 mg tablet 1,000 mg PO BID losartan 25 mg tablet 25 mg PO QAM nitroglycerin [Nitrostat] 0.4 mg Tablet, Sublingual 0.5 mg sublingual .Q5MIN PRN (Reason: Chest Pain) albuterol sulfate 90 mcg/actuation HFA aerosol inhaler 2 puff INHALATION BID duloxetine 30 mg capsule,delayed release(DR/EC) 30 mg PO AMHS rivastigmine 9.5 mg/24 hour patch 24 hour 1 patch topical .Q24HR Rx Instructions: REMOVE OLD PATH BEFORE REPLACING NEW ONE. Incruse Ellipta 62.5 mcg/actuation blister with device 1 inh INHALATION QAM glimepiride 1 mg Tablet 1 mg PO DAILY carbidopa-levodopa 25-100 mg tablet See Rx Instructions .ROUTE .COMPLEX Rx Instructions: 2 tab at 8 am, 1.5 tab at 12 pm, 1.5 tab at 4pm, 1.5 tab at 8 pm codeine-guaifenesin 10-100 mg/5 mL Liquid 5 ml PO Q4H PRN (Reason: Cough) Discharge Orders: Discharge Order (Routine); Ordered 09/12/22 Ordered By: Scott Rodriguez Admission Data Admit Date/Time: 09/08/22 15:56 Attending Provider: Scott Rodriguez Admit Provider: Elías Field Primary Care Provider: Jag Stover Other Providers: Elías Field ; Cory Luther ; [facility] ; [place]Care ; Case [place]
[2022-09-12] MEDS: RIVASTIGMINE 9.5 MG TD SCH (17:24)
[2022-09-12] MEDS ORDERED: VIBEGRON 75 MG TAB PO SCH (21:00)
[2022-09-13] MEDS ORDERED: LOSARTAN POTASSIUM 25 MG TAB PO SCH (09:00)
== END 2022-09-12 18:29 | DRG 65 ==
LOC: ED 10:27 → 2N 10:27 → SUATTDRO 15:00 → 2N 16:45 → SUATTDRO 09-08 15:56

== ENCOUNTER 2022-09-22 14:04 | Observation (INO) ==
--- NOTE | 2022-09-22 14:45 | Emergency Department Note ---
Impression & Plan AMS (altered mental status) ED Provider Note INFORMANT: Patient ED PROVIDER(S): Case Horta MD CHIEF COMPLAINT: Altered mental status PLAN: Disposition: Admitted Condition: Good Outpatient prescription management: none Referral: None MEDICAL DECISION MAKING: Patient presented because of an altered mental status episode. Family noted this was similar to her prior evaluation and discovery of a stroke. She had a CT and CT angiography protocol performed and this was negative for acute process. Her CBC and chemistry panels were unremarkable. Urinalysis was negative for infection. ECG showed a nonspecific ST abnormality but no acute changes. Patient has no chest pain. Cardiac monitoring did not reveal any evidence of dysrhythmia. Patient underwent MR imaging to further evaluate for acute ischemia. This was reported as negative. I did attempt to contact on- call neurology however that service coverage ended and is no longer available for the evening. [facility] and discussed the case. In light of the symptoms and situation he felt the patient would be best served by observing her overnight on his service and consulting with neurology in the morning as they are not available at this time. He evaluated the patient in the ER and admitted her for further management. Discussed with aerospace project manager After review of the information above and other included data, I feel the patient requires further management in the hospital. Triage Nursing notes reviewed and agree them. Vital Signs: reviewed and remarkable for no significant abnormalities Prior /Outside records reviewed: Prior admission records reviewed Differential diagnosis: CVA, TIA, Infection, dehydration, metabolic abnormality, hypo/hyperglycemia, electrolyte disturbance, anemia, hypoxia, cardiac sources, intracerebral event, toxicologic, neurologic, as well as other pathologies. Diagnostics, as interpreted by me: ECG: Twelve-lead ECG reveals normal sinus rhythm at 65 beats per minute. No evidence of pericarditis, ischemia, ectopy, or dysrhythmia. Nonspecific ST present. Cardiac Monitoring: Cardiac monitoring ordered by me: The patient was placed on continuous cardiac monitoring and observed. It revealed a normal sinus rhythm at 72 beats per minute without ectopy or evidence of dysrhythmia. Medical decision rules: none Imaging studies: CT and CT angiography as noted above. No acute findings. MR imaging of the brain negative for acute process. No ischemia. Chest x-ray. Findings: A chest x-ray was performed and revealed no pneumothorax, effusion, infiltrate, pulmonary edema, free air under the diaphragm, or wide mediastinum. Impression: No acute disease. HPI: The patient is a 82year old female who presents to the Emergency Room due to altered mental status. She was difficult to arouse. This happened between around 9:00 this morning and 11:30 AM. The patient reportedly has a history of TIA and stroke. Family is present and helps with history. They noted that she had similar symptoms during her TIA and on her last visit which was due to a acute cerebellar stroke. Patient is currently at inpatient rehab at [facility]. She was evaluated by the PA and physician there and directed to the ER for evaluation. The patient also notes the following associated symptoms, neck and back pain.Patient has history of dementia and Parkinson's. Sister is present and notes that she does complain about her back frequently. The patient has been given no medication for relieving factors. Current pain is rated as 0/10. Family notes that she is back to her baseline. Pt denies LOC, headache, fevers, chills, diaphoresis, visual changes, neck pain, chest pain, breathing difficulties, nausea, vomiting, abdominal pain, back pain, melena, hematochezia, urinary symptoms, numbness, weakness, lymphadenopathy, rash, or other comp laints. 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 Oropharynx unremarkable. EYES: Normal conjunctiva. Sclera non-icteric. NECK: Inspection normal. Supple. No nuchal rigidity. FROM. No masses. RESPIRATORY: Clear to auscultation. No wheezes. No rales. Normal respiratory effort. CARDIAC: Normal rate. Normal rhythm. No murmurs. No rubs. Extremities warm and well perfused. Pulses equal. No JVD. GI: Soft, non-distended. No tenderness to palpation. No rebound or guarding. No masses. RECTAL: Deferred. MUSCULOSKELETAL: Atraumatic. Chest examination reveals no tenderness. The back is symmetrical on inspection without obvious abnormality. There is no CVA tenderness to palpation. No joint edema. LOWER EXTREMITIES: Calves are equal size bilaterally and non-tender. No edema. No discoloration. NEURO: Normal sensorium. Mild generalized weak in the upper and lower extremities and notes subjective tingling in the face bilaterally. No other sensory or motor deficits noted. Speech normal. SKIN: No rash or jaundice noted. Past Med/Surg History Medical History Anxiety Asthma CAD (coronary artery disease) COPD (chronic obstructive pulmonary disease) COVID-19 Delirium Dementia Diabetes mellitus, type II Generalized weakness GERD (gastroesophageal reflux disease) History of TIA (transient ischemic attack) Hyperlipidemia Hypertension Multiple fractures of ribs of left side Parkinson's disease Transient confusion Surgical History Hx of appendectomy S/P cholecystectomy Stented coronary artery Family History Other Diabetes Heart disease Hypertension Social History Smoking Status: Former smoker Tobacco Type: Cigarettes Cigarettes Per Day: 1 pack/day; Second Hand Exposure: No; Do You Dip or Chew Tobacco: No; Hx Alcohol Use: No Hx Substance Use: No Preferred Language: Cambodian Communication Ability: Impaired Communication Ability Comment: memory loss, confusion at times Visual Impairment: Limited Hearing Ability: Normal Fishing Boat Mate Required: No Beliefs That Will Affect Care: None marital status: / Current Living Situation: Family Current Living Situation Comment: Sister current occupational status: retired 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[place], [place] How many Children do You have: 0 Feels Safe at Home: Yes Diet: regular caffeine: Yes (rare) during the past year weight has: remained stable Assistive Devices: Bedside Commode, Walker and Other Allergies Allergies Allergy/AdvReac Type Severity Reaction Status Date / Time fluconazole Allergy Severe hives,rash,respiratory Verified 09/22/22 16:43 difficulty fluticasone Allergy Severe SHORT OF Verified 09/22/22 16:43 BREATH/RASH hydrochlorothiazide Allergy Severe Rash Verified 09/22/22 16:43 triamterene Allergy Severe Rash Verified 09/22/22 16:43 erythromycin base Allergy Intermediate RASH/NAUSEA Verified 09/22/22 16:43 /VOMITING isosorbide Allergy Intermediate Headache Verified 09/22/22 16:43 NSAIDS (Non-Steroidal Allergy Intermediate hives,rash Verified 09/22/22 16:43 Anti-Inflamma amifostine Allergy Unknown Unknown Verified 09/22/22 16:43 lisinopril Allergy Unknown Unknown Verified 09/22/22 16:43 Penicillins Allergy Unknown Unknown Verified 09/22/22 16:43 ethyl alcohol AdvReac Unknown Unknown Verified 09/07/22 15:16 Home Meds Home Medications Medication Instructions Recorded Confirmed albuterol sulfate 90 mcg/actuation 2 puff inhalation Q4H PRN 02/06/22 09/22/22 aerosol inhaler Shortness Of Breath Or Wheezing carbidopa 25 mg-levodopa 100 mg 1.5 tab PO QID 02/06/22 09/22/22 tablet duloxetine 30 mg capsule,delayed 30 mg PO Q12H 02/06/22 09/22/22 release glimepiride 1 mg tablet 1 mg PO DAILY 02/06/22 09/22/22 losartan 25 mg tablet 25 mg PO QAM 02/06/22 09/22/22 metformin 1,000 mg tablet 1,000 mg PO BIDM 02/06/22 09/22/22 rivastigmine 9.5 mg/24 hour 1 patch topical QPM 02/06/22 09/22/22 transdermal patch umeclidinium 62.5 mcg/actuation 1 inh inhalation QAM 02/06/22 09/22/22 blister powder for inhalation (Incruse Ellipta) aspirin 81 mg tablet,delayed 81 mg PO QAM 06/15/22 09/22/22 release mirabegron 50 mg tablet,extended 50 mg PO QPM 07/19/22 09/22/22 release 24 hr (Myrbetriq) sitagliptin phosphate 100 mg 100 mg PO QAM 07/19/22 09/22/22 tablet (Januvia) acetaminophen 325 mg tablet 650 mg PO Q4H PRN Pain 09/22/22 09/22/22 (Tylenol) atorvastatin 10 mg tablet 10 mg PO HS 09/22/22 09/22/22 bisoprolol fumarate 5 mg tablet 5 mg PO DAILY 09/22/22 09/22/22 docusate sodium 100 mg capsule 100 mg PO BID 09/22/22 09/22/22 fluticasone furoate 200 1 inh inhalation DAILY 09/22/22 09/22/22 mcg-vilanterol 25 mcg/dose inhalation powder (Breo Ellipta) heparin (porcine) 5,000 unit/mL 5,000 unit subcut Q12H 09/22/22 09/22/22 injection solution hydrochlorothiazide 12.5 mg capsule 6.25 mg PO DAILY 09/22/22 09/22/22 magnesium hydroxide 400 mg/5 mL 30 ml PO DAILY PRN Constipation 09/22/22 09/22/22 oral suspension (Milk of Magnesia) ondansetron HCl 4 mg tablet 4 mg PO Q4H PRN NAUSEA/VOMITING 09/22/22 09/22/22 polyethylene glycol 3350 17 17 g PO QDL PRN Constipation 09/22/22 09/22/22 gram/dose oral powder (Miralax) pyridoxine (vitamin B6) 50 mg 50 mg PO BID 09/22/22 09/22/22 tablet sennosides 8.6 mg-docusate sodium 1 tab-cap PO QDL PRN Constipation 09/22/22 09/22/22 50 mg tablet (Senokot-S) Previous Rx's Medication Instructions Recorded clopidogrel 75 mg tablet 75 mg PO QAM #30 tabs 09/12/22 nystatin 100,000 unit/gram topical 1 applic EXT BID #0 grams 09/12/22 powder (Nystop) Results & Data (ED) Vital Signs Vital Signs - 24 hr 09/22/22 14:16 09/22/22 16:14 09/22/22 16:18 Temperature 36.9 C Temperature Source Oral Pulse Rate 68 69 Pulse Rate [Apical] 67 Pulse Rhythm [Apical] Regular Pulse Strength [Apical] Normal Respiratory Rate 16 18 Respiratory Effort / Characteristics Non-Labored Spontaneous Non-Labored Spontaneous Respiratory Depth Normal Normal Respiratory Pattern Regular Regular Blood Pressure 148/72 H Blood Pressure [Right Arm] 149/79 H Blood Pressure Mean 97 Blood Pressure Mean [Right Arm] 102 Pulse Oximetry 97 96 Oxygen Delivery Method Room Air Room Air Sepsis Recent Fever Within 48 Hours No Sepsis New/Unexplained Change in Mental Status N/A Sepsis Action Taken by Nursing No Action Required Laboratory Data 09/22/22 14:50 09/22/22 14:50 Lab Results 09/22/22 09/22/22 09/22/22 Range/Units 14:50 14:50 14:50 WBC 7.35 (4.8-10.8) K/ul RBC 4.23 (4.20-5.40) M/uL Hgb 12.3 (12.0-16.0) g/dl Hct 38.5 (37.0-47.0) % MCV 91.0 (80.0-100.0) fL MCH 29.1 (25.0-34.0) pg MCHC 31.9 L (32.0-36.0) g/dL RDW Std Deviation 53.6 H (36.4-46.3) fL RDW Coeff of Jayden 16.1 H (11.5-14.5) % Plt Count 318 (130-400) K/uL MPV 9.8 (9.4-12.4) fL Immature Gran % (Auto) 0.3 % Neut % (Auto) 78.7 % Lymph % (Auto) 13.7 % [place] % (Auto) 5.4 % Eos % (Auto) 1.6 % Baso % (Auto) 0.3 % Neut # (Auto) 5.78 (1.40-6.50) K/uL Lymph # (Auto) 1.01 L (1.2-3.4) K/uL [place] # (Auto) 0.40 (0.11-0.59) K/uL Eos # (Auto) 0.12 (0-0.50) K/uL Baso # (Auto) 0.02 (0-0.2) K/uL Immature Gran # (Auto) 0.02 (0.01-0.20) K/uL PT 10.9 (9.0-12.0) Seconds INR 1.0 (0.9-1.1) APTT 29.8 (21.0-31.0) Seconds PTT Ratio 1.1 Sodium 140 (136-145) mmol/L Potassium 4.5 (3.5-5.1) mmol/L Chloride 105 (98-107) mmol/L Carbon Dioxide 30 (21-32) mmol/L Anion Gap 5 (3-11) BUN 18 (6-23) mg/dl Creatinine 0.80 (0.6-1.2) mg/dl Est Cr Clr Drug Dosing 48.5 ml/min Est GFR ( Amer) 80.1 ml/min Est GFR (Non-Af Amer) 69.1 ml/min BUN/Creatinine Ratio 22.5 H (10-20) Glucose 152 H (70-99(Fasting)) mg/dl Calcium 9.5 (8.6-10.3) mg/dl Magnesium 1.7 (1.7-2.4) mg/dl Total Bilirubin 0.9 (0.2-1.0) mg/dl AST 18 (13-39) U/L ALT 14 (7-52) U/L Alkaline Phosphatase 53 (34-104) U/L Troponin I High Sens 3.7 (0-14) pg/ml C-Reactive Protein < 0.50 (0-0.5) mg/dl Total Protein 6.5 (6.0-8.3) gm/dl Albumin 3.9 (3.4-5.0) gm/dl Globulin 2.6 (2.5-4.0) gm/dl Albumin/Globulin Ratio 1.5 (0.9-2) Procalcitonin (0-0.5) ng/ml Urine Color Urine Appearance (Clear) Urine pH (4.5-7.5) Ur Specific Stilwell (1.000-1.030) Urine Protein (Negative) Urine Glucose (UA) (Negative) Urine Ketones (Negative) Urine Blood (Negative) Urine Nitrite (Negative) Urine Bilirubin (Negative) Urine Urobilinogen (Negative) Ur Leukocyte Esterase (Negative) SARS-CoV-2, RNA, NAAT (NEGATIVE) 09/22/22 09/22/22 09/22/22 Range/Units 14:50 19:03 21:27 WBC (4.8-10.8) K/ul RBC (4.20-5.40) M/uL Hgb (12.0-16.0) g/dl Hct (37.0-47.0) % MCV (80.0-100.0) fL MCH (25.0-34.0) pg MCHC (32.0-36.0) g/dL RDW Std Deviation (36.4-46.3) fL RDW Coeff of Jayden (11.5-14.5) % Plt Count (130-400) K/uL MPV (9.4-12.4) fL Immature Gran % (Auto) % Neut % (Auto) % Lymph % (Auto) % [place] % (Auto) % Eos % (Auto) % Baso % (Auto) % Neut # (Auto) (1.40-6.50) K/uL Lymph # (Auto) (1.2-3.4) K/uL [place] # (Auto) (0.11-0.59) K/uL Eos # (Auto) (0-0.50) K/uL Baso # (Auto) (0-0.2) K/uL Immature Gran # (Auto) (0.01-0.20) K/uL PT (9.0-12.0) Seconds INR (0.9-1.1) APTT (21.0-31.0) Seconds PTT Ratio Sodium (136-145) mmol/L Potassium (3.5-5.1) mmol/L Chloride (98-107) mmol/L Carbon Dioxide (21-32) mmol/L Anion Gap (3-11) BUN (6-23) mg/dl Creatinine (0.6-1.2) mg/dl Est Cr Clr Drug Dosing ml/min Est GFR ( Amer) ml/min Est GFR (Non-Af Amer) ml/min BUN/Creatinine Ratio (10-20) Glucose (70-99(Fasting)) mg/dl Calcium (8.6-10.3) mg/dl Magnesium (1.7-2.4) mg/dl Total Bilirubin (0.2-1.0) mg/dl AST (13-39) U/L ALT (7-52) U/L Alkaline Phosphatase (34-104) U/L Troponin I High Sens (0-14) pg/ml C-Reactive Protein (0-0.5) mg/dl Total Protein (6.0-8.3) gm/dl Albumin (3.4-5.0) gm/dl Globulin (2.5-4.0) gm/dl Albumin/Globulin Ratio (0.9-2) Procalcitonin < 0.05 (0-0.5) ng/ml Urine Color Yellow Urine Appearance Clear (Clear) Urine pH 5.0 (4.5-7.5) Ur Specific [place] > 1.045 H (1.000-1.030) Urine Protein Negative (Negative) Urine Glucose (UA) Negative (Negative) Urine Ketones Negative (Negative) Urine Blood Negative (Negative) Urine Nitrite Negative (Negative) Urine Bilirubin Negative (Negative) Urine Urobilinogen Negative (Negative) Ur Leukocyte Esterase Negative (Negative) SARS-CoV-2, RNA, NAAT NEGATIVE (NEGATIVE) Administered Medications Magnesium Sulfate/Dextrose (Magnesium Sulfate / D5w) 1 gm in 100 mls @ 50 mls/hr IV Q2H ROXANNE Stop: 09/23/22 00:44 Last Admin: 09/22/22 21:18 Dose: 50 mls/hr Documented By: MARCUS Lactated Ringer's (Lr) 1,000 mls @ 50 mls/hr IV .Q20H ONE Stop: 09/23/22 16:43 Last Admin: 09/22/22 21:18 Dose: 50 mls/hr Documented By: MARCUS Discontinued Medications Ioversol (Optiray 320 500ml) 110 ml IV ONCE ONE Stop: 09/22/22 16:05 Last Admin: 09/22/22 16:05 Dose: 110 ml Documented By: HAYDEN Imaging Data Radiologist's Impression: Chest X-Ray 09/22/22 14:28 XR chest 1V portable CLINICAL HISTORY: neuro deficit, acute stroke suspected TECHNIQUE: Single frontal radiograph of the chest was obtained. Comparison: Comparison is made to chest radiograph 09/07/2022 FINDINGS: No lines and tubes are seen. Calcified aortic knob is seen. The lungs are clear. No evidence of pleural effusion or pneumothorax. IMPRESSION: No acute chest disease. ACT 112: Negative or not required by law. Electronically signed by: Teddy Oakes M.D. 09/22/2022 4:[address] 09/22/22 14:28 CT angio neck with con, CT angio head w con, CT head/brain wo con CLINICAL HISTORY: neuro deficit, acute stroke suspected TECHNIQUE: Contiguous axial CT images of the head were acquired from the base of the skull to the vertex without intravenous contrast administration. CT angiography of the head and neck was performed following intravenous admi nistration of iodinated contrast. Coronal and sagittal MIPS were obtained from the axial data set and were submitted for review. Automated dose lowering techniques and/or adjustment according to patient size were utilized for this examination. All measurements were calculated based on NASCET criteria. CT DOSE: 1150.03 mGy.cm Comparison: None available at the time of this dictation. FINDINGS: CT head: Areas of decreased attenuation are present in the periventricular and subcortical white matter bilaterally consistent with small vessel ischemic disease. Generalized cerebral atrophy with commensurate enlargement of the ventricles, sulci, and cisterns is also present. There is no acute intracranial hemorrhage or evidence of acute territorial infarction. No shift of the midline structures, mass effect, or extra-axial abnormalities are shown. Atherosclerotic calcifications are present in the intracranial segments of the internal carotid arteries. Left frontal encephalomalacia may represent prior infarct. Biapical emphysema is seen. CTA Neck: A 3 vessel aortic arch is shown. There is no significant atherosclerotic plaque in the aortic arch or the origins of the innominate, left common carotid, and left subclavian arteries. The common carotid, external carotid, cervical segments of the internal carotid arteries, and the cervical segments of the vertebral arteries are patent without hemodynamically significant stenosis. The left vertebral artery is dominant. CTA Head: The anterior and posterior cerebral circulations are patent. No hemodynamically significant stenosis, aneurysm, dissection, or arteriovenous malformation is shown. There is nonhemodynamically significant stenosis of the right V4 segment of the right vertebral artery likely secondary to atherosclerosis. origin of the left PATTERN WORKER is noted. IMPRESSION: 1. No acute intracranial hemorrhage, evidence of acute territorial infarction, or other acute intracranial disease process. 2. No occlusion, hemodynamically significant stenosis, or dissection in the major cervical arteries. 3. No occlusion, hemodynamically significant stenosis, aneurysm, dissection, or arteriovenous malformation in the major intracranial arteries. Assessment of stenosis of the internal carotid arteries is based on NASCET criteria. ACT 112: Negative or not required by law. Electronically signed by: Teddy Oakes M.D. 09/22/2022 5:01 PM Head CTA 09/22/22 14:28 CT angio neck with con, CT angio head w con, CT head/brain wo con CLINICAL HISTORY: neuro deficit, acute stroke suspected TECHNIQUE: Contiguous axial CT images of the head were acquired from the base of the skull to the vertex without intravenous contrast administration. CT angiography of the head and neck was performed following intravenous administration of iodinated contrast. Coronal and sagittal MIPS were obtained from the axial data set and were submitted for review. Automated dose lowering techniques and/or adjustment according to patient size were utilized for this examination. All measurements were calculated based on NASCET criteria. CT DOSE: 1150.03 mGy.cm Comparison: None available at the time of this dictation. FINDINGS: CT head: Areas of decreased attenuation are present in the periventricular and subcortical white matter bilaterally consistent with small vessel ischemic disease. Generalized cerebral atrophy with commensurate enlargement of the ventr icles, sulci, and cisterns is also present. There is no acute intracranial hemorrhage or evidence of acute territorial infarction. No shift of the midline structures, mass effect, or extra-axial abnormalities are shown. Atherosclerotic calcifications are present in the intracranial segments of the internal carotid arteries. Left frontal encephalomalacia may represent prior infarct. Biapical emphysema is seen. CTA Neck: A 3 vessel aortic arch is shown. There is no significant atherosclerotic plaque in the aortic arch or the origins of the innominate, left common carotid, and left subclavian arteries. The common carotid, external carotid, cervical segments of the internal carotid arteries, and the cervical segments of the vertebral arteries are patent without hemodynamically significant stenosis. The left vertebral artery is dominant. CTA Head: The anterior and posterior cerebral circulations are patent. No hemodynamically significant stenosis, aneurysm, dissection, or arteriovenous malformation is shown. There is nonhemodynamically significant stenosis of the right V4 segment of the right vertebral artery likely secondary to atherosclerosis. origin of the left PATTERN WORKER is noted. IMPRESSION: 1. No acute intracranial hemorrhage, evidence of acute territorial infarction, or other acute intracranial disease process. 2. No occlusion, hemodynamically significant stenosis, or dissection in the major cervical arteries. 3. No occlusion, hemodynamically significant stenosis, aneurysm, dissection, or arteriovenous malformation in the major intracranial arteries. Assessment of stenosis of the internal carotid arteries is based on NASCET criteria. ACT 112: Negative or not required by law. Electronically signed by: Teddy Oakes M.D. 09/22/2022 5:01 PM Neck CTA 09/22/22 14:28 CT angio neck with con, CT angio head w con, CT head/brain wo con CLINICAL HISTORY: neuro deficit, acute stroke suspected TECHNIQUE: Contiguous axial CT images of the head were acquired from the base of the skull to the vertex without intravenous contrast administration. CT angiography of the head and neck was performed following intravenous administration of iodinated contrast. Coronal and sagittal MIPS were obtained from the axial data set and were submitted for review. Automated dose lowering techniques and/or adjustment according to patient size were utilized for this examination. All measurements were calculated based on NASCET criteria. CT DOSE: 1150.03 mGy.cm Comparison: None available at the time of this dictation. FINDINGS: CT head: Areas of decreased attenuation are present in the periventricular and subcortical white matter bilaterally consistent with small vessel ischemic disease. Generalized cerebral atrophy with commensurate enlargement of the ventricles, sulci, and cisterns is also present. There is no acute intracranial hemorrhage or evidence of acute territorial infarction. No shift of the midline structures, mass effect, or extra-axial abnormalities are shown. Atherosclerotic calcifications are present in the intracranial segments of the internal carotid arteries. Left frontal encephalomalacia may represent prior infarct. Biapical emphysema is seen. CTA Neck: A 3 vessel aortic arch is shown. There is no significant ath erosclerotic plaque in the aortic arch or the origins of the innominate, left common carotid, and left subclavian arteries. The common carotid, external carotid, cervical segments of the internal carotid arteries, and the cervical segments of the vertebral arteries are patent without hemodynamically significant stenosis. The left vertebral artery is dominant. CTA Head: The anterior and posterior cerebral circulations are patent. No hemodynamically significant stenosis, aneurysm, dissection, or arteriovenous malformation is shown. There is nonhemodynamically significant stenosis of the right V4 segment of the right vertebral artery likely secondary to atherosclero sis. origin of the left PATTERN WORKER is noted. IMPRESSION: 1. No acute intracranial hemorrhage, evidence of acute territorial infarction, or other acute intracranial disease process. 2. No occlusion, hemodynamically significant stenosis, or dissection in the major cervical arteries. 3. No occlusion, hemodynamically significant stenosis, aneurysm, dissection, or arteriovenous malformation in the major intracranial arteries. Assessment of stenosis of the internal carotid arteries is based on NASCET criteria. ACT 112: Negative or not required by law. Electronically signed by: Teddy Oakes M.D. 09/22/2022 5:01 PM Brain MRI 09/22/22 17:15 MR brain wo con CLINICAL HISTORY: eval for stroke TECHNIQUE: Multiplanar and multisequence MR images of the brain were obtained without intravenous contrast. Comparison: Comparison is made to MRI brain 09/07/2022 FINDINGS: No abnormal restricted diffusion is identified. Foci of T2 and FLAIR hyperintensity are noted in the paraventricular areas consistent with chronic small vessel ischemic disease. Ex vacuo ventriculomegaly and sulcal enlargement is noted compatible with diffuse volume loss. No mass is seen. There is no mass effect or midline shift. There is no evidence of acute intraparenchymal hemorrhage. No extra axial fluid collections are seen. The corpus callosum, pit uitary gland, and cerebellar tonsils appear grossly unremarkable. Flow voids of the major intracranial arterial vessels are identified. The imaged portions of the paranasal sinuses, mastoid air cells, and orbits are unremarkable. IMPRESSION: Chronic volume loss and age related white matter changes without evidence of acute abnormality. In particular no evidence of acute infarct. ACT 112: Negative or not required by law. Electronically signed by: Teddy Oakes M.D. 09/22/2022 6:33 PM Discharge Plan Visit Data Chief Complaint: Altered Mental Status Stated Complaint: AMS ED Provider: Case Horta Discharge Problem: AMS (altered mental status) Forms Stand Alone Forms: [facility] Prescriptions Prescriptions: No Action aspirin 81 mg Tablet,Delayed Release (Dr/Ec) 81 mg PO QAM Rx Instructions: STARTED 09/13/22 FOR 16 DAYS. Myrbetriq 50 mg tablet extended release 24 hr 50 mg PO QPM Januvia 100 mg tablet 100 mg PO QAM metformin 1,000 mg tablet 1,000 mg PO BIDM losartan 25 mg tablet 25 mg PO QAM albuterol sulfate 90 mcg/actuation HFA aerosol inhaler 2 puff INHALATION Q4H PRN (Reason: Shortness Of Breath Or Wheezing) duloxetine 30 mg capsule,delayed release(DR/EC) 30 mg PO Q12H rivastigmine 9.5 mg/24 hour patch 24 hour 1 patch topical QPM Rx Instructions: REMOVE OLD PATH BEFORE REPLACING NEW ONE. Incruse Ellipta 62.5 mcg/actuation blister with device 1 inh INHALATION QAM glimepiride 1 mg Tablet 1 mg PO DAILY carbidopa-levodopa 25-100 mg tablet 1.5 tab PO QID Rx Instructions: 1.5 TABS AT 0800, 1200, 1600 & 2000 clopidogrel 75 mg Tablet 75 mg PO QAM Qty: 30 0RF nystatin [Nystop] 100,000 unit/gram Powder 1 applic EXT BID Qty: 0 0RF acetaminophen [Tylenol] 325 mg Tablet 650 mg PO Q4H MDD 3,250 GRAMS APAP/24 HOURS PRN (Reason: Pain) atorvastatin 10 mg Tablet 10 mg PO HS ondansetron HCl [Zofran] 4 mg Tablet 4 mg PO Q4H PRN (Reason: NAUSEA/VOMITING) sennosides-docusate sodium [Senokot-S] 8.6-50 mg Tablet 1 tab-cap PO QDL PRN (Reason: Constipation) bisoprolol fumarate 5 mg Tablet 5 mg PO DAILY magnesium hydroxide [Milk of Magnesia] 400 mg/5 mL Suspension 30 ml PO DAILY PRN (Reason: Constipation) hydrochlorothiazide 12.5 mg Capsule 6.25 mg PO DAILY docusate sodium 100 mg Capsule 100 mg PO BID polyethylene glycol 3350 [Miralax] 17 gram/dose Powder 17 g PO QDL PRN (Reason: Constipation) heparin (porcine) 5,000 unit/mL Solution 5,000 unit SUBCUT Q12H fluticasone furoate-vilanterol [Breo Ellipta] 200-25 mcg/dose Blister With Device 1 inh INHALATION DAILY pyridoxine (vitamin B6) 50 mg tablet 50 mg PO BID Rx Instructions: BREAKFAST & LUNCH Referrals Referrals: Jag Stover MD [Primary Care Provider] -
[2022-09-22 15:15] LABS: Basophils # (auto) 0.02 K/uL (0-0.2); Basophils % (auto) 0.3 %; Eosinophils # (auto) 0.12 K/uL (0-0.50); Eosinophils % (auto) 1.6 %; Hematocrit (blood only) 38.5 % (37.0-47.0); Hemoglobin 12.3 g/dl (12.0-16.0); Immature Granulocytes # (auto) 0.02 K/uL (0.01-0.20); Immature Granulocytes % (auto) 0.3 %; Lymphocytes # (auto) 1.01 K/uL (1.2-3.4); Lymphocytes % (auto) 13.7 %; Mean Corpuscular Hemoglobin 29.1 pg (25.0-34.0); Mean Corpuscular Hgb Conc 31.9 g/dL (32.0-36.0); Mean Platelet Volume 9.8 fL (9.4-12.4); Monocytes % (auto) 5.4 %; Neutrophils # (auto) 5.78 K/uL (1.40-6.50); Neutrophils % (auto) 78.7 %; Platelet Count 318 K/uL (130-400); RDW Coefficient of Variation 16.1 % (11.5-14.5); RDW Standard Deviation 53.6 fL (36.4-46.3); Red Blood Count 4.23 M/uL (4.20-5.40); White Blood Count 7.35 K/ul (4.8-10.8)
[2022-09-22 15:32] LABS: Alanine Aminotransferase 14 U/L (7-52); Albumin Globulin Ratio 1.5 (0.9-2); Albumin Level 3.9 gm/dl (3.4-5.0); Alkaline Phosphatase 53 U/L (34-104); Anion Gap 5 (3-11); Aspartate Aminotransferase 18 U/L (13-39); BUN Creatinine Ratio 22.5 (10-20); Bilirubin,Total 0.9 mg/dl (0.2-1.0); Blood Urea Nitrogen 18 mg/dl (6-23); C Reactive Protein < 0.50 mg/dl (0-0.5); Calcium 9.5 mg/dl (8.6-10.3); Carbon Dioxide 30 mmol/L (21-32); Chloride 105 mmol/L (98-107); Creatinine Clr Calc Pharmacy 48.5 ml/min; Est GFR (African American) 80.1 ml/min; Est GFR (Non-African American) 69.1 ml/min; Globulin 2.6 gm/dl (2.5-4.0); Glucose 152 mg/dl (70-99(Fasting)); Magnesium 1.7 mg/dl (1.7-2.4); Potassium 4.5 mmol/L (3.5-5.1); Sodium 140 mmol/L (136-145); Total Protein 6.5 gm/dl (6.0-8.3)
[2022-09-22 15:39] LABS: Troponin I High Sensitivity 3.7 pg/ml (0-14)
[2022-09-22 15:52] LABS: Partial Thromboplastin Ratio 1.1; Partial Thromboplastin Time 29.8 Seconds (21.0-31.0); Prothrombin Time 10.9 Seconds (9.0-12.0)
[2022-09-22] MEDS ORDERED: OPTIRAY 320 500ml IV ONE (16:04)
--- NOTE | 2022-09-22 16:41 | XRay Report ---
XR chest 1V portable CLINICAL HISTORY: neuro deficit, acute stroke suspected TECHNIQUE: Single frontal radiograph of the chest was obtained. Comparison: Comparison is made to chest radiograph 09/07/2022 FINDINGS: No lines and tubes are seen. Calcified aortic knob is seen. The lungs are clear. No evidence of pleur al effusion or pneumothorax. IMPRESSION: No acute chest disease. ACT 112: Negative or not required by law. Electronically signed by: Teddy Oakes M.D. 09/22/2022 4:40 PM
--- NOTE | 2022-09-22 17:02 | CT Scan Report ---
CT angio neck with con, CT angio head w con, CT head/brain wo con CLINICAL HISTORY: neuro deficit, acute stroke suspected TECHNIQUE: Contiguous axial CT images of the head were acquired from the base of the skull to the deven malorie without intravenous contrast administration. CT angiography of the head and neck was performed f ollowing intravenous administration of iodinated contrast. Coronal and sagittal MIPS were obtained fr om the axial data set and were submitted for review. Automated dose lowering techniques and/or adjus tment according to patient size were utilized for this examination. All measurements were calculated based on NASCET criteria. CT DOSE: 1150.03 mGy.cm Comparison: None available at the time of this dictation. FINDINGS: CT head: Areas of decreased attenuation are present in the periventricular and subcortical white tika er bilaterally consistent with small vessel ischemic disease. Generalized cerebral atrophy with comme nsurate enlargement of the ventricles, sulci, and cisterns is also present. There is no acute intracr anial hemorrhage or evidence of acute territorial infarction. No shift of the midline structures, mas s effect, or extra-axial abnormalities are shown. Atherosclerotic calcifications are present in the intracranial segments of the internal carotid arteries. Left frontal encephalomalacia may represent p rior infarct. Biapical emphysema is seen. CTA Neck: A 3 vessel aortic arch is shown. There is no significant atherosclerotic plaque in the aor tic arch or the origins of the innominate, left common carotid, and left subclavian arteries. The co mmon carotid, external carotid, cervical segments of the internal carotid arteries, and the cervical segments of the vertebral arteries are patent without hemodynamically significant stenosis. The left vertebral artery is dominant. CTA Head: The anterior and posterior cerebral circulations are patent. No hemodynamically significan t stenosis, aneurysm, dissection, or arteriovenous malformation is shown. There is nonhemodynamically significant stenosis of the right V4 segment of the right vertebral artery likely secondary to ather osclerosis. origin of the left [employer] is noted. IMPRESSION: 1. No acute intracranial hemorrhage, evidence of acute territorial infarction, or other acute intrac ranial disease process. 2. No occlusion, hemodynamically significant stenosis, or dissection in the major cervical arteries. 3. No occlusion, hemodynamically significant stenosis, aneurysm, dissection, or arteriovenous malfor mation in the major intracranial arteries. Assessment of stenosis of the internal carotid arteries is based on NASCET criteria. ACT 112: Negative or not required by law. Electronically signed by: Teddy Oakes M.D. 09/22/2022 5:01 PM
--- NOTE | 2022-09-22 18:34 | Magnetic Resonance Report ---
MR brain wo con CLINICAL HISTORY: eval for stroke TECHNIQUE: Multiplanar and multisequence MR images of the brain were obtained without intravenous con trast. Comparison: Comparison is made to MRI brain 09/07/2022 FINDINGS: No abnormal restricted diffusion is identified. Foci of T2 and FLAIR hyperintensity are noted in the paraventricular areas consistent with chronic small vessel ischemic disease. Ex vacuo ventriculomegal y and sulcal enlargement is noted compatible with diffuse volume loss. No mass is seen. There is no m ass effect or midline shift. There is no evidence of acute intraparenchymal hemorrhage. No extra axia l fluid collections are seen. The corpus callosum, pituitary gland, and cerebellar tonsils appear aggie ssly unremarkable. Flow voids of the major intracranial arterial vessels are identified. The imaged portions of the para nasal sinuses, mastoid air cells, and orbits are unremarkable. IMPRESSION: Chronic volume loss and age related white matter changes without evidence of acute abnormality. In pa rticular no evidence of acute infarct. ACT 112: Negative or not required by law. Electronically signed by: Teddy Oakes M.D. 09/22/2022 6:33 PM
[2022-09-22 19:14] LABS: Appearance Urine Clear (Clear); Bilirubin Urine Negative (Negative); Blood Urine Negative (Negative); Color Urine Yellow; Glucose Urine UA Negative (Negative); Ketones Urine Negative (Negative); Leukocyte Esterase Urine Negative (Negative); Nitrite Urine Negative (Negative); Protein Urine Negative (Negative); Specific Gravity Urine > 1.045 (1.000-1.030); Urobilinogen Urine Negative (Negative)
[2022-09-22] MEDS ORDERED: LACTATED RINGER'S 1,000 ML IV ONE (20:44)
[2022-09-22] MEDS: MAGNESIUM SULFATE / D5W 1 GM/100 ML BAG IV SCH ×2 (21:18→23:24)
--- NOTE | 2022-09-22 22:12 | History & Physical Report ---
Date of Service September 22, 2022 Assessment & Plan (1) Episode of unresponsiveness: Plan: Recurrent episodes hx recurrent CVA, recent cerebellar CVA Rule out seizure disorder hx Parkinson's dementia CAD status post stent asthma/COPD as per records, stable hypertension, stable hyperlipidemia on statin Rx DM2 on oral medications, well-controlled as of recent hemoglobin A1c of 7 last October 2021 chronic anemia, hemoglobin at baseline past tobacco abuse. OBS Medical telemetry EEG Neurology consult (Patient known to [facility] Basal bolus insulin ISS BG goal 1 10-1 40, carb count coverage DVT prophylaxis per Lovenox subcu Full code as per sisters. Patient sisters requesting updates for providers. Ms. Itzel Oakes, contact #[phone]. . Jolanta Vail, contact #[phone]. Text document was generated using [employer] voice recognition software. It may contain grammatical or spelling errors. Kindly contact undersigned for clarification of any documentation item in question. History of Present Illness Chief Complaint: Transient unresponsiveness as per records I do not know as per patient Primary Care Provider: Jag Stover MD History obtained from family and records. Unable to obtain history from patient secondary to dementia Medical history significant for CAD status post stent, recurrent CVA, asthma/COPD as per records, hypertension, hyperlipidemia, DM2 on oral medications, Parkinson's disease with cognitive impairment, chronic anemia (baseline hemoglobin 10-11), past tobacco abuse. Monthly admissions since May,. Recent confinement 2 weeks ago for right cerebellar CVA presenting as transient unresponsiveness. Neurology recommended dual antiplatelet therapy for 3 weeks followed by indefinite Plavix Rx. Outpatient ZIO monitoring recommended outpatient. [facility] This morning patient noted to be unresponsive for a few hours. Hard to arouse. No witnessed seizures/tongue biting/incontinence. Patient subsequently woke up. Patient directed to ER by for further evaluation. Patient currently without complaints. Has no insight/recollection regarding events leading to ER transport. Patient at baseline mentation as per sister. 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 Allergies Allergy/AdvReac Type Severity Reaction Status Date / Time fluconazole Allergy Severe hives,rash,respiratory Verified 09/22/22 16:43 difficulty fluticasone Allergy Severe SHORT OF Verified 09/22/22 16:43 BREATH/RASH hydrochlorothiazide Allergy Severe Rash Verified 09/22/22 16:43 triamterene Allergy Severe Rash Verified 09/22/22 16:43 erythromycin base Allergy Intermediate RASH/NAUSEA Verified 09/22/22 16:43 /VOMITING isosorbide Allergy Intermediate Headache Verified 09/22/22 16:43 NSAIDS (Non-Steroidal Allergy Intermediate hives,rash Verified 09/22/22 16:43 Anti-Inflamma amifostine Allergy Unknown Unknown Verified 09/22/22 16:43 lisinopril Allergy Unknown Unknown Verified 09/22/22 16:43 Penicillins Allergy Unknown Unknown Verified 09/22/22 16:43 ethyl alcohol AdvReac Unknown Unknown Verified 09/07/22 15:16 Home Medications Medication Instructions Recorded Confirmed Type albuterol sulfate 90 mcg/actuation 2 puff inhalation Q4H PRN 02/06/22 09/22/22 History aerosol inhaler Shortness Of Breath Or Wheezing carbidopa 25 mg-levodopa 100 mg 1.5 tab PO QID 02/06/22 09/22/22 History tablet duloxetine 30 mg capsule,delayed 30 mg PO Q12H 02/06/22 09/22/22 History release glimepiride 1 mg tablet 1 mg PO DAILY 02/06/22 09/22/22 History losartan 25 mg tablet 25 mg PO QAM 02/06/22 09/22/22 History metformin 1,000 mg tablet 1,000 mg PO BIDM 02/06/22 09/22/22 History rivastigmine 9.5 mg/24 hour 1 patch topical QPM 02/06/22 09/22/22 History transdermal patch umeclidinium 62.5 mcg/actuation 1 inh inhalation QAM 02/06/22 09/22/22 History blister powder for inhalation (Incruse Ellipta) aspirin 81 mg tablet,delayed 81 mg PO QAM 06/15/22 09/22/22 History release mirabegron 50 mg tablet,extended 50 mg PO QPM 07/19/22 09/22/22 History release 24 hr (Myrbetriq) sitagliptin phosphate 100 mg 100 mg PO QAM 07/19/22 09/22/22 History tablet (Januvia) clopidogrel 75 mg tablet 75 mg PO QAM #30 tabs 09/12/22 09/22/22 Rx nystatin 100,000 unit/gram topical 1 applic EXT BID #0 grams 09/12/22 09/22/22 Rx powder (Nystop) acetaminophen 325 mg tablet 650 mg PO Q4H PRN Pain 09/22/22 09/22/22 History (Tylenol) atorvastatin 10 mg tablet 10 mg PO HS 09/22/22 09/22/22 History bisoprolol fumarate 5 mg tablet 5 mg PO DAILY 09/22/22 09/22/22 History docusate sodium 100 mg capsule 100 mg PO BID 09/22/22 09/22/22 History fluticasone furoate 200 1 inh inhalation DAILY 09/22/22 09/22/22 History mcg-vilanterol 25 mcg/dose inhalation powder (Breo Ellipta) heparin (porcine) 5,000 unit/mL 5,000 unit subcut Q12H 09/22/22 09/22/22 History injection solution hydrochlorothiazide 12.5 mg capsule 6.25 mg PO DAILY 09/22/22 09/22/22 History magnesium hydroxide 400 mg/5 mL 30 ml PO DAILY PRN Constipation 09/22/22 09/22/22 History oral suspension (Milk of Magnesia) ondansetron HCl 4 mg tablet 4 mg PO Q4H PRN NAUSEA/VOMITING 09/22/22 09/22/22 History polyethylene glycol 3350 17 17 g PO QDL PRN Constipation 09/22/22 09/22/22 History gram/dose oral powder (Miralax) pyridoxine (vitamin B6) 50 mg 50 mg PO BID 09/22/22 09/22/22 History tablet sennosides 8.6 mg-docusate sodium 1 tab-cap PO QDL PRN Constipation 09/22/22 09/22/22 History 50 mg tablet (Senokot-S) Past Med/Surg History Medical History Anxiety Asthma CAD (coronary artery disease) COPD (chronic obstructive pulmonary disease) COVID-19 Delirium Dementia Diabetes mellitus, type II Generalized weakness GERD (gastroesophageal reflux disease) History of TIA (transient ischemic attack) Hyperlipidemia Hypertension Multiple fractures of ribs of left side Parkinson's disease Transient confusion Surgical History Hx of appendectomy S/P cholecystectomy Stented coronary artery Family History Other Diabetes Heart disease Hypertension Social History Smoking Status: Former smoker Tobacco Type: Cigarettes Cigarettes Per Day: 1 pack/day; Second Hand Exposure: No; Do You Dip or Chew Tobacco: No; Tobacco Cessation Education Requested by Patient: No Hx Alcohol Use: No Hx Substance Use: No Preferred Language: Kinyarwanda Communication Ability: Effective Communication Ability Comment: memory loss, confusion at times Visual Impairment: Limited Hearing Ability: Normal Lead Python Developer Required: No Beliefs That Will Affect Care: None marital status: / Current Living Situation: [facility] Rehab Current Living Situation Comment: Lives w/ sister, at Rehab facility at this time current occupational status: retired 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[place], [place] How many Children do You have: 0 Other Information That Helps Us Care for You: No Feels Safe at Home: Yes Safety Concerns: Feels Safe At This Time Diet: regular caffeine: Yes (rare) during the past year weight has: remained stable Assistive Devices: Glasses and Walker Review of Systems Review of Systems: Could not be reliably obtained secondary to dementia Physical Exam Physical Exam: GENERAL: Demented , pleasant, no respiratory distress SKIN: Pallor, warm HEENT: Pale palpebral conjunctivae, no ptosis, moist buccal mucosa NECK : Supple, no tenderness CHEST : CTA, no tenderness HEART : RRR, no obvious murmurs ABDOMEN: Some distention, nontender EXTREMITIES : Minimal LE swelling,no LE tenderness, overlapping/underlapping toes both feet NEUROLOGIC : Demented, no facial asymmetry, gait and stance not assessed Results & Data Results & Data Vital Signs (Past 12 Hours) Vital Signs Temp Pulse Pulse Resp BP BP Pulse Ox 09/22/22 16:18 67 18 149/79 H 96 09/22/22 16:14 69 09/22/22 14:16 36.9 C 68 16 148/72 H 97 O2 Del Method 09/22/22 16:18 Room Air 09/22/22 16:14 09/22/22 14:16 Room Air Laboratory Results Laboratory Results WBC 7.35 K/ul (4.8-10.8) 09/22/22 14:50 RBC 4.23 M/uL (4.20-5.40) 09/22/22 14:50 Hgb 12.3 g/dl (12.0-16.0) 09/22/22 14:50 Hct 38.5 % (37.0-47.0) 09/22/22 14:50 MCV 91.0 fL (80.0-100.0) 09/22/22 14:50 MCH 29.1 pg (25.0-34.0) 09/22/22 14:50 MCHC 31.9 g/dL (32.0-36.0) L 09/22/22 14:50 RDW Std Deviation 53.6 fL (36.4-46.3) H 09/22/22 14:50 RDW Coeff of Jayden 16.1 % (11.5-14.5) H 09/22/22 14:50 Plt Count 318 K/uL (130-400) 09/22/22 14:50 MPV 9.8 fL (9.4-12.4) 09/22/22 14:50 Immature Gran % (Auto) 0.3 % 09/22/22 14:50 Neut % (Auto) 78.7 % 09/22/22 14:50 Lymph % (Auto) 13.7 % 09/22/22 14:50 [place] % (Auto) 5.4 % 09/22/22 14:50 Eos % (Auto) 1.6 % 09/22/22 14:50 Baso % (Auto) 0.3 % 09/22/22 14:50 Neut # (Auto) 5.78 K/uL (1.40-6.50) 09/22/22 14:50 Lymph # (Auto) 1.01 K/uL (1.2-3.4) L 09/22/22 14:50 [place] # (Auto) 0.40 K/uL (0.11-0.59) 09/22/22 14:50 Eos # (Auto) 0.12 K/uL (0-0.50) 09/22/22 14:50 Baso # (Auto) 0.02 K/uL (0-0.2) 09/22/22 14:50 Immature Gran # (Auto) 0.02 K/uL (0.01-0.20) 09/22/22 14:50 PT 10.9 Seconds (9.0-12.0) 09/22/22 14:50 INR 1.0 (0.9-1.1) 09/22/22 14:50 APTT 29.8 Seconds (21.0-31.0) 09/22/22 14:50 PTT Ratio 1.1 09/22/22 14:50 Sodium 140 mmol/L (136-145) 09/22/22 14:50 Potassium 4.5 mmol/L (3.5-5.1) 09/22/22 14:50 Chloride 105 mmol/L (98-107) 09/22/22 14:50 Carbon Dioxide 30 mmol/L (21-32) 09/22/22 14:50 Anion Gap 5 (3-11) 09/22/22 14:50 BUN 18 mg/dl (6-23) 09/22/22 14:50 Creatinine 0.80 mg/dl (0.6-1.2) 09/22/22 14:50 Est Cr Clr Drug Dosing 48.5 ml/min 09/22/22 14:50 Est GFR ( Amer) 80.1 ml/min 09/22/22 14:50 Est GFR (Non-Af Amer) 69.1 ml/min 09/22/22 14:50 BUN/Creatinine Ratio 22.5 (10-20) H 09/22/22 14:50 Glucose 152 mg/dl (70-99(Fasting)) H 09/22/22 14:50 Calcium 9.5 mg/dl (8.6-10.3) 09/22/22 14:50 Magnesium 1.7 mg/dl (1.7-2.4) 09/22/22 14:50 Total Bilirubin 0.9 mg/dl (0.2-1.0) 09/22/22 14:50 AST 18 U/L (13-39) 09/22/22 14:50 ALT 14 U/L (7-52) 09/22/22 14:50 Alkaline Phosphatase 53 U/L (34-104) 09/22/22 14:50 Troponin I High Sens 3.7 pg/ml (0-14) 09/22/22 14:50 C-Reactive Protein < 0.50 mg/dl (0-0.5) 09/22/22 14:50 Total Protein 6.5 gm/dl (6.0-8.3) 09/22/22 14:50 Albumin 3.9 gm/dl (3.4-5.0) 09/22/22 14:50 Globulin 2.6 gm/dl (2.5-4.0) 09/22/22 14:50 Albumin/Globulin Ratio 1.5 (0.9-2) 09/22/22 14:50 Procalcitonin < 0.05 ng/ml (0-0.5) 09/22/22 14:50 Urine Color Yellow 09/22/22 19:03 Urine Appearance Clear (Clear) 09/22/22 19:03 Urine pH 5.0 (4.5-7.5) 09/22/22 19:03 Ur Specific [place] > 1.045 (1.000-1.030) H 09/22/22 19:03 Urine Protein Negative (Negative) 09/22/22 19:03 Urine Glucose (UA) Negative (Negative) 09/22/22 19:03 Urine Ketones Negative (Negative) 09/22/22 19:03 Urine Blood Negative (Negative) 09/22/22 19:03 Urine Nitrite Negative (Negative) 09/22/22 19:03 Urine Bilirubin Negative (Negative) 09/22/22 19:03 Urine Urobilinogen Negative (Negative) 09/22/22 19:03 Ur Leukocyte Esterase Negative (Negative) 09/22/22 19:03 SARS-CoV-2, RNA, NAAT NEGATIVE (NEGATIVE) 09/22/22 21:27 Impressions Chest X-Ray 09/22/22 14:28 XR chest 1V portable CLINICAL HISTORY: neuro deficit, acute stroke suspected TECHNIQUE: Single frontal radiograph of the chest was obtained. Comparison: Comparison is made to chest radiograph 09/07/2022 FINDINGS: No lines and tubes are seen. Calcified aortic knob is seen. The lungs are clear. No evidence of pleural effusion or pneumothorax. IMPRESSION: No acute chest disease. ACT 112: Negative or not required by law. Electronically signed by: Teddy Oakes M.D. 09/22/2022 4:[address] 09/22/22 14:28 CT angio neck with con, CT angio head w con, CT head/brain wo con CLINICAL HISTORY: neuro deficit, acute stroke suspected TECHNIQUE: Contiguous axial CT images of the head were acquired from the base of the skull to the vertex without intravenous contrast administration. CT angiography of the head and neck was performed following intravenous administration of iodinated contrast. Coronal and sagittal MIPS were obtained from the axial data set and were submitted for review. Automated dose lowering techniques and/or adjustment according to patient size were utilized for this examination. All measurements were calculated based on NASCET criteria. CT DOSE: 1150.03 mGy.cm Comparison: None available at the time of this dictation. FINDINGS: CT head: Areas of decreased attenuation are present in the periventricular and subcortical white matter bilaterally consistent with small vessel ischemic disease. Generalized cerebral atrophy with commensurate enlargement of the ventricles, sulci, and cisterns is also present. There is no acute intracranial hemorrhage or evidence of acute territorial infarction. No shift of the midline structures, mass effect, or extra-axial abnormalities are shown. Atherosclerotic calcifications are present in the intracranial segments of the internal carotid arteries. Left frontal encephalomalacia may represent prior infarct. Biapical emphysema is seen. CTA Neck: A 3 vessel aortic arch is shown. There is no significant atherosclerotic plaque in the aortic arch or the origins of the innominate, left common carotid, and left subclavian arteries. The common carotid, external carotid, cervical segments of the internal carotid arteries, and the cervical segments of the vertebral arteries are patent without hemodynamically significant stenosis. The left vertebral artery is dominant. CTA Head: The anterior and posterior cerebral circulations are patent. No hemodynamically significant stenosis, aneurysm, dissection, or arteriovenous malformation is shown. There is nonhemodynamically significant stenosis of the right V4 segment of the right vertebral artery likely secondary to atherosclerosis. 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 IMPRESSION: 1. No acute intracranial hemorrhage, evidence of acute territorial infarction, or other acute intracranial disease process. 2. No occlusion, hemodynamically significant stenosis, or dissection in the major cervical arteries. 3. No occlusion, hemodynamically significant stenosis, aneurysm, dissection, or arteriovenous malformation in the major intracranial arteries. Assessment of stenosis of the internal carotid arteries is based on NASCET criteria. ACT 112: Negative or not required by law. Electronically signed by: Teddy Oakes M.D. 09/22/2022 5:01 PM Head CTA 09/22/22 14:28 CT angio neck with con, CT angio head w con, CT head/brain wo con CLINICAL HISTORY: neuro deficit, acute stroke suspected TECHNIQUE: Contiguous axial CT images of the head were acquired from the base of the skull to the vertex without intravenous contrast administration. CT angiography of the head and neck was performed following intravenous administration of iodinated contrast. Coronal and sagittal MIPS were obtained from the axial data set and were submitted for review. Automated dose lowering techniques and/or adjustment according to patient size were utilized for this examination. All measurements were calculated based on NASCET criteria. CT DOSE: 1150.03 mGy.cm Comparison: None available at the time of this dictation. FINDINGS: CT head: Areas of decreased attenuation are present in the periventricular and subcortical white matter bilaterally consistent with small vessel ischemic dis ease. Generalized cerebral atrophy with commensurate enlargement of the ventricles, sulci, and cisterns is also present. There is no acute intracranial hemorrhage or evidence of acute territorial infarction. No shift of the midline structures, mass effect, or extra-axial abnormalities are shown. Atherosclerotic calcifications are present in the intracranial segments of the internal carotid arteries. Left frontal encephalomalacia may represent prior infarct. Biapical emphysema is seen. CTA Neck: A 3 vessel aortic arch is shown. There is no significant atherosclerotic plaque in the aortic arch or the origins of the innominate, left common carotid, and left subclavian arteries. The common carotid, external carotid, cervical segments of the internal carotid arteries, and the cervical se gments of the vertebral arteries are patent without hemodynamically significant stenosis. The left vertebral artery is dominant. CTA Head: The anterior and posterior cerebral circulations are patent. No hemodynamically significant stenosis, aneurysm, dissection, or arteriovenous malformation is shown. There is nonhemodynamically significant stenosis of the right V4 segment of the right vertebral artery likely secondary to atherosclerosis. 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 IMPRESSION: 1. No acute intracranial hemorrhage, evidence of acute territorial infarction, or other acute intracranial disease process. 2. No occlusion, hemodynamically significant stenosis, or dissection in the major cervical arteries. 3. No occlusion, hemodynamically significant stenosis, aneurysm, dissection, or arteriovenous malformation in the major intracranial arteries. Assessment of stenosis of the internal carotid arteries is based on NASCET criteria. ACT 112: Negative or not required by law. Electronically signed by: Teddy Oakes M.D. 09/22/2022 5:01 PM Neck CTA 09/22/22 14:28 CT angio neck with con, CT angio head w con, CT head/brain wo con CLINICAL HISTORY: neuro deficit, acute stroke suspected TECHNIQUE: Contiguous axial CT images of the head were acquired from the base of the skull to the vertex without intravenous contrast administration. CT angiography of the head and neck was performed following intravenous administration of iodinated contrast. Coronal and sagittal MIPS were obtained from the axial data set and were submitted for review. Automated dose lowering techniques and/or adjustment according to patient size were utilized for this examination. All measurements were calculated based on NASCET criteria. CT DOSE: 1150.03 mGy.cm Comparison: None available at the time of this dictation. FINDINGS: CT head: Areas of decreased attenuation are present in the periventricular and subcortical white matter bilaterally consistent with small vessel ischemic disease. Generalized cerebral atrophy with commensurate enlargement of the ventricles, sulci, and cisterns is also present. There is no acute intracranial hemorrhage or evidence of acute territorial infarction. No shift of the midline structures, mass effect, or extra-axial abnormalities are shown. Atherosclerotic calcifications are present in the intracranial segments of the internal carotid arteries. Left frontal encephalomalacia may represent prior infarct. Biapical emphysema is seen. CTA Neck: A 3 vessel aortic arch is shown. There is no significant atherosclerotic plaque in the aortic arch or the origins of the innominate, left common carotid, and left subclavian arteries. The common carotid, external carotid, cervical segments of the internal carotid arteries, and the cervical segments of the vertebral arteries are patent without hemodynamically significant stenosis. The left vertebral artery is dominant. CTA Head: The anterior and posterior cerebral circulations are patent. No hemodynamically significant stenosis, aneurysm, dissection, or arteriovenous malformation is shown. There is nonhemodynamically significant stenosis of the right V4 segment of the right vertebral artery likely secondary to atherosclerosis. 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 IMPRESSION: 1. No acute intracranial hemorrhage, evidence of acute territorial infarction, or other acute intracranial disease process. 2. No occlusion, hemodynamically significant stenosis, or dissection in the major cervical arteries. 3. No occlusion, hemodynamically significant stenosis, aneurysm, dissection, or arteriovenous malformation in the major intracranial arteries. Assessment of stenosis of the internal carotid arteries is based on NASCET criteria. ACT 112: Negative or not required by law. Electronically signed by: Teddy Oakes M.D. 09/22/2022 5:01 PM Brain MRI 09/22/22 17:15 MR brain wo con CLINICAL HISTORY: eval for stroke TECHNIQUE: Multiplanar and multisequence MR images of the brain were obtained without intravenous contrast. Comparison: Comparison is made to MRI brain 09/07/2022 FINDINGS: No abnormal restricted diffusion is identified. Foci of T2 and FLAIR hyperintensity are noted in the paraventricular areas consistent with chronic small vessel ischemic disease. Ex vacuo ventriculomegaly and sulcal enlargement is noted compatible with diffuse volume loss. No mass is seen. There is no mass effect or midline shift. There is no evidence of acute intraparenchymal hemorrhage. No extra axial fluid collections are seen. The corpus callosum, pituitary gland, and cerebellar tonsils appear grossly unremarkable. Flow voids of the major intracranial arterial vessels are identified. The imaged portions of the paranasal sinuses, mastoid air cells, and orbits are unremarkable. IMPRESSION: Chronic volume loss and age related white matter changes without evidence of acute abnormality. In particular no evidence of acute infarct. ACT 112: Negative or not required by law. Electronically signed by: Teddy Oakes M.D. 09/22/2022 6:33 PM Diagnostic Findings EKG as per my interpretation : Rate 65, NSR, normal axis, T wave abnormalities inferior leads
[2022-09-22] MEDS ORDERED: DOCUSATE SODIUM/SENNA 50/8.6MG TAB PO PRN (23:17)
[2022-09-22] MEDS ORDERED: GLUCOSE 10 TAB/TUBE PO PRN (23:17)
[2022-09-22] MEDS ORDERED: DEXTROSE 50% 50 ML SYRINGE IV PRN (23:17)
[2022-09-22] MEDS ORDERED: ACETAMINOPHEN 325 MG TAB PO PRN (23:17)
[2022-09-22] MEDS ORDERED: PROMETHAZINE HCL 6.25 MG in SODIUM CHLORIDE 0.9% 50 ML IV PRN (23:17)
[2022-09-22] MEDS ORDERED: GLUCOSE 40% GEL 15 GM TUBE PO PRN (23:17)
[2022-09-22] MEDS ORDERED: GLUCAGON FOR INJ 1 MG VIAL SQ PRN (23:17)
[2022-09-22] MEDS ORDERED: CARBOHYDRATES FOR HYPOGLYCEMIA PO PRN (23:17)
[2022-09-22] MEDS: INSULIN ASPART PER UNIT CHARGE SC SCH (23:21)
[2022-09-23] MEDS: CARBIDOPA/LEVODOPA 25/100MG TAB PO SCH ×3 (00:08→11:58)
[2022-09-23] MEDS: DULoxetine HCL 30 MG CAP PO SCH ×2 (00:08→08:08)
[2022-09-23 06:16] LABS: Basophils # (auto) 0.02 K/uL (0-0.2); Basophils % (auto) 0.4 %; Eosinophils # (auto) 0.13 K/uL (0-0.50); Eosinophils % (auto) 2.4 %; Hematocrit (blood only) 33.4 % (37.0-47.0); Hemoglobin 10.8 g/dl (12.0-16.0); Immature Granulocytes # (auto) 0.01 K/uL (0.01-0.20); Immature Granulocytes % (auto) 0.2 %; Lymphocytes # (auto) 1.31 K/uL (1.2-3.4); Lymphocytes % (auto) 23.9 %; Mean Corpuscular Hgb Conc 32.3 g/dL (32.0-36.0); Mean Corpuscular Volume 89.8 fL (80.0-100.0); Monocytes # (auto) 0.52 K/uL (0.11-0.59); Monocytes % (auto) 9.5 %; Neutrophils % (auto) 63.6 %; Platelet Count 275 K/uL (130-400); RDW Coefficient of Variation 16.2 % (11.5-14.5); RDW Standard Deviation 53.4 fL (36.4-46.3); Red Blood Count 3.72 M/uL (4.20-5.40); White Blood Count 5.49 K/ul (4.8-10.8)
[2022-09-23 06:30] LABS: BUN Creatinine Ratio 22.7 (10-20); Creatinine Clr Calc Pharmacy 56.2 ml/min; Est GFR (African American) 86.6 ml/min; Est GFR (Non-African American) 74.8 ml/min; Potassium 4.2 mmol/L (3.5-5.1)
[2022-09-23] MEDS: INSULIN ASPART PER UNIT CHARGE SC SCH ×2 (08:07→12:18)
[2022-09-23] MEDS: PYRIDOXINE HCL 50 MG TAB PO SCH ×2 (08:09→11:58)
[2022-09-23] MEDS ORDERED: ASPIRIN 81 MG ECTAB PO SCH (09:00)
[2022-09-23] MEDS ORDERED: DOCUSATE SODIUM 100 MG CAP PO SCH (09:00)
[2022-09-23] MEDS ORDERED: FLUTICASONE/VILANTEROL 200/25MCG 14 PUFFS/INHALER INH SCH (09:00)
[2022-09-23] MEDS ORDERED: LOSARTAN POTASSIUM 25 MG TAB PO SCH (09:00)
[2022-09-23] MEDS ORDERED: UMECLIDINIUM BROMIDE 62.5MCG/BLISTER 7 PUFFS/INHALER INH SCH (09:00)
[2022-09-23] MEDS ORDERED: CLOPIDOGREL BISULFATE 75 MG TAB PO SCH (09:00)
[2022-09-23] MEDS ORDERED: BISOPROLOL FUMARATE 5 MG TAB PO SCH (09:00)
[2022-09-23] MEDS ORDERED: LANTUS PER UNIT CHARGE SQ SCH (09:00)
[2022-09-23] MEDS ORDERED: ENOXAPARIN INJ 40 MG/0.4 ML SYR SQ SCH (09:00)
--- NOTE | 2022-09-23 09:21 | Neurology Consultation ---
Date of Consultation September 23, 2022 Assessment & Plan (1) Episode of unresponsiveness: Unclear etiology of these episodes, suspect they are sleep cycle related, especially given her parkinsons. Reviewing the prior hospitalization, the small incidental cerebellar stroke is not physiologically a possible cause or explanation. I do not suspect cardiac or seizure etiologies as there was no shaking and no significant lab abnormalities upon arrival. Sleep disturbances as described are more common in later stages of dementia. I do not suspect these are dangerous episodes. A sleep study can be pursued as an outpatient for more information if desired by family. Telehealth Consultation Telehealth Information Telehealth Information: I performed this visit using a real-time telehealth connection between my locat ion and the patients location ([facility]). After connecting through interactive tele-video, patient was identified by name and date of and/or wristband check.Patient (or authorized healthcare public relations representative) was informed that this was a telemedicine visit and it was being conducted confidentially over secure lines. My office door was closed and no one else was present in the room with me.Patient (or authorized healthcare public relations representative) provided consent to proceed with the visit, expressed an understanding of privacy and security of the telemedicine visit, and gave permission to have a hospital public relations representative in the room in order to assist with the visit and to conduct portions of the visit, as needed. I informed the patient (or authorized healthcare public relations representative) that I reviewed their record and presented the opportunity for them to ask any questions regarding the visit today. The patient agreed to participate. History of Present Illness Reason for Consultation: Unresponsive episode Requesting Physician: Dr. Rodriguez Attending Physician: Scott Rodriguez MD History of Present Illness Anni Chavez is an 82 yo F with parkinsonism and dementia presenting with an episode of unresponsiveness per family. They tried to wake her up yesterday and she was unarousable for 45 minutes. When this happened a few weeks prior an MRI revealed a tiny cerebellar infarct. Since discharge from that admission she had been doing well at home. During the unresponsive episode she was laying in bed, there was no stiffening or shaking movements, it was as if she was asleep but could not wake up. She is unable to contribute to the history secondary to her dementia. Allergies Allergy/AdvReac Type Severity Reaction Status Date / Time fluconazole Allergy Severe hives,rash,respiratory Verified 09/22/22 16:43 difficulty fluticasone Allergy Severe SHORT OF Verified 09/22/22 16:43 BREATH/RASH hydrochlorothiazide Allergy Severe Rash Verified 09/22/22 16:43 triamterene Allergy Severe Rash Verified 09/22/22 16:43 erythromycin base Allergy Intermediate RASH/NAUSEA Verified 09/22/22 16:43 /VOMITING isosorbide Allergy Intermediate Headache Verified 09/22/22 16:43 NSAIDS (Non-Steroidal Allergy Intermediate hives,rash Verified 09/22/22 16:43 Anti-Inflamma amifostine Allergy Unknown Unknown Verified 09/22/22 16:43 lisinopril Allergy Unknown Unknown Verified 09/22/22 16:43 Penicillins Allergy Unknown Unknown Verified 09/22/22 16:43 ethyl alcohol AdvReac Unknown Unknown Verified 09/07/22 15:16 Home Medications Medication Instructions Recorded Confirmed Type albuterol sulfate 90 mcg/actuation 2 puff inhalation Q4H PRN 02/06/22 09/22/22 History aerosol inhaler Shortness Of Breath Or Wheezing carbidopa 25 mg-levodopa 100 mg 1.5 tab PO QID 02/06/22 09/22/22 History tablet duloxetine 30 mg capsule,delayed 30 mg PO Q12H 02/06/22 09/22/22 History release glimepiride 1 mg tablet 1 mg PO DAILY 02/06/22 09/22/22 History losartan 25 mg tablet 25 mg PO QAM 02/06/22 09/22/22 History metformin 1,000 mg tablet 1,000 mg PO BIDM 02/06/22 09/22/22 History rivastigmine 9.5 mg/24 hour 1 patch topical QPM 02/06/22 09/22/22 History transdermal patch umeclidinium 62.5 mcg/actuation 1 inh inhalation QAM 02/06/22 09/22/22 History blister powder for inhalation (Incruse Ellipta) aspirin 81 mg tablet,delayed 81 mg PO QAM 06/15/22 09/22/22 History release mirabegron 50 mg tablet,extended 50 mg PO QPM 07/19/22 09/22/22 History release 24 hr (Myrbetriq) sitagliptin phosphate 100 mg 100 mg PO QAM 07/19/22 09/22/22 History tablet (Januvia) clopidogrel 75 mg tablet 75 mg PO QAM #30 tabs 09/12/22 09/22/22 Rx nystatin 100,000 unit/gram topical 1 applic EXT BID #0 grams 09/12/22 09/22/22 Rx powder (Nystop) acetaminophen 325 mg tablet 650 mg PO Q4H PRN Pain 09/22/22 09/22/22 History (Tylenol) atorvastatin 10 mg tablet 10 mg PO HS 09/22/22 09/22/22 History bisoprolol fumarate 5 mg tablet 5 mg PO DAILY 09/22/22 09/22/22 History docusate sodium 100 mg capsule 100 mg PO BID 09/22/22 09/22/22 History fluticasone furoate 200 1 inh inhalation DAILY 09/22/22 09/22/22 History mcg-vilanterol 25 mcg/dose inhalation powder (Breo Ellipta) heparin (porcine) 5,000 unit/mL 5,000 unit subcut Q12H 09/22/22 09/22/22 History injection solution hydrochlorothiazide 12.5 mg capsule 6.25 mg PO DAILY 09/22/22 09/22/22 History magnesium hydroxide 400 mg/5 mL 30 ml PO DAILY PRN Constipation 09/22/22 09/22/22 History oral suspension (Milk of Magnesia) ondansetron HCl 4 mg tablet 4 mg PO Q4H PRN NAUSEA/VOMITING 09/22/22 09/22/22 History polyethylene glycol 3350 17 17 g PO QDL PRN Constipation 09/22/22 09/22/22 History gram/dose oral powder (Miralax) pyridoxine (vitamin B6) 50 mg 50 mg PO BID 09/22/22 09/22/22 History tablet sennosides 8.6 mg-docusate sodium 1 tab-cap PO QDL PRN Constipation 09/22/22 09/22/22 History 50 mg tablet (Senokot-S) Patient History Medical History Anxiety Asthma CAD (coronary artery disease) COPD (chronic obstructive pulmonary disease) COVID-19 Delirium Dementia Diabetes mellitus, type II Generalized weakness GERD (gastroesophageal reflux disease) History of TIA (transient ischemic attack) Hyperlipidemia Hypertension Multiple fractures of ribs of left side Parkinson's disease Transient confusion Surgical History Hx of appendectomy S/P cholecystectomy Stented coronary artery Family History Other Diabetes Heart disease Hypertension Social History Smoking Status: Former smoker Tobacco Type: Cigarettes Cigarettes Per Day: 1 pack/day; Second Hand Exposure: No; Do You Dip or Chew Tobacco: No; Tobacco Cessation Education Requested by Patient: No Hx Alcohol Use: No Hx Substance Use: No Preferred Language: Swazi Communication Ability: Effective Communication Ability Comment: memory loss, confusion at times Visual Impairment: Limited Hearing Ability: Normal E Merchant Required: No Beliefs That Will Affect Care: None marital status: / Current Living Situation: Family and Rehab Current Living Situation Comment: Lives w/ sister, at Rehab facility at this time current occupational status: retired 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 Oriented to person only. Fluent but content of speech is often nonsensical. Comprehension intact, able to follow simple commands. Able to name stroke card pictures. Cranial Nerves: II: Reads NIHSS cards III/IV/: Versions intact without nystagmus, no gaze preference. VII: Facial expression symmetric VIII: Hearing intact to voice Motor: Strength was symmetric and antigravity. There was no bradykinesia. There were no abnormal movements. Reflexes: Unable to assess over telemedicine Results & Data Vital Signs (Past 12 Hours) Vital Signs Temp Pulse Pulse Pulse Resp BP BP 09/23/22 08:00 78 09/23/22 08:02 37.0 C 75 18 188/75 H 09/23/22 03:12 36.4 C L 66 16 128/67 09/22/22 23:50 59 L 09/22/22 23:08 09/22/22 23:08 36.6 C 63 20 169/77 H 09/22/22 22:40 64 16 137/70 Pulse Ox O2 Del Method 09/23/22 08:00 09/23/22 08:02 95 Room Air 09/23/22 03:12 97 Room Air 09/22/22 23:50 09/22/22 23:08 Room Air 09/22/22 23:08 97 Room Air 09/22/22 22:40 95 Room Air Laboratory Results Abnormal lab results 09/22/22 09/22/22 09/22/22 Range/Units 14:50 14:50 19:03 RBC (4.20-5.40) M/uL Hgb (12.0-16.0) g/dl Hct (37.0-47.0) % MCHC 31.9 L (32.0-36.0) g/dL RDW Std Deviation 53.6 H (36.4-46.3) fL RDW Coeff of Jayden 16.1 H (11.5-14.5) % Lymph # (Auto) 1.01 L (1.2-3.4) K/uL BUN/Creatinine Ratio 22.5 H (10-20) Glucose 152 H (70-99(Fasting)) mg/dl POC Glucose (70-99) mg/dl Ur Specific [place] > 1.045 H (1.000-1.030) 09/22/22 09/23/22 09/23/22 Range/Units 23:11 05:33 05:33 RBC 3.72 L (4.20-5.40) M/uL Hgb 10.8 L (12.0-16.0) g/dl Hct 33.4 L (37.0-47.0) % MCHC (32.0-36.0) g/dL RDW Std Deviation 53.4 H (36.4-46.3) fL RDW Coeff of Jayden 16.2 H (11.5-14.5) % Lymph # (Auto) (1.2-3.4) K/uL BUN/Creatinine Ratio 22.7 H (10-20) Glucose (70-99(Fasting)) mg/dl POC Glucose 122 H (70-99) mg/dl Ur Specific [place] (1.000-1.030) 09/23/22 Range/Units 07:53 RBC (4.20-5.40) M/uL Hgb (12.0-16.0) g/dl Hct (37.0-47.0) % MCHC (32.0-36.0) g/dL RDW Std Deviation (36.4-46.3) fL RDW Coeff of Jayden (11.5-14.5) % Lymph # (Auto) (1.2-3.4) K/uL BUN/Creatinine Ratio (10-20) Glucose (70-99(Fasting)) mg/dl POC Glucose 141 H (70-99) mg/dl Ur Specific [place] (1.000-1.030) Diagnostic Findings MRI brain - unremarkable
--- NOTE | 2022-09-23 10:31 | Electrocardiogram Report ---
Test Reason : Blood Pressure : / mmHG Vent. Rate : 065 BPM Atrial Rate : 065 BPM P-R Int : 160 ms QRS Dur : 084 ms QT Int : 386 ms P-R-T Axes : 038 046 052 degrees QTc Int : 401 ms Normal sinus rhythm Nonspecific ST abnormality Abnormal ECG When compared with ECG of 07-SEP-2022 10:34, Criteria for Septal infarct are no longer Present Nonspecific ST abnormality now present in the Lateral leads Confirmed by Miguel Franz ([id number]) on 09/23/2022 10:31:17 AM Referred By: Confirmed By:Miguel Franz
--- NOTE | 2022-09-23 13:59 | Hospitalist Progress Note ---
Date of Service September 23, 2022 Assessment & Plan (1) Episode of unresponsiveness: Plan: Recurrent episodes Unclear etiology. Likely sleep cycle related due to Parkinson's --MRI Brain:Chronic volume loss and age related white matter changes without evidence of acute abnormality. In particular no evidence of acute infarct. --Head/Neck:No acute intracranial hemorrhage, evidence of acute territorial infarction, or other acute intracranial disease process. No occlusion, hemodynamically significant stenosis, or dissection in the major cervical arteries. No occlusion, hemodynamically significant stenosis, aneurysm, dissection, or arteriovenous malformation in the major intracranial arteries. No issues on monitor Appreciate neurology input Can consider sleep study as outpatient per neurology [facility] H/O Recent cerebellar CVA MRI as above Continue aspirin, Plavix, Lipitor Was to continue dual antiplatelet therapy for 1 more week and then Plavix alone (as suggested on prior admission) H/O Parkinson's dementia CAD S/P stent Asthma/COPD as per records, stable Hypertension, stable hyperlipidemia on statin Rx DM2 on oral medications, well-controlled as of recent hemoglobin A1c of 7 last October 2021 Chronic anemia, hemoglobin at baseline Past tobacco abuse. Continue home medications DVT Px: Lovenox SQ Code Status Full code Disposition Acute rehab Admission and Anticipated Discharge Date Admission Date: September 22, 2022 Subjective Patient is seen and examined at bedside Poor historian Denies any chest pain, dyspnea, dizziness, nausea, abdominal pain Discussed with patient's sister at bedside Also discussed with neurology today Plan to be discharged back to rehab today Review of Systems Review of Systems: All systems reviewed & are unremarkable except as noted in Subjective Physical Exam Physical Exam: Physical Exam: Vitals signs as noted above General Appearance:Moderately built and nourished, no apparent distress, Chronic ill appearing Head: normocephalic, Atraumatic Eyes: normal inspection, EOMI Neck: supple, Trachea midline Respiratory/Chest: Normal breath sounds, CTA, No accessory muscle use Cardiovascular: S1, S2, No murmur Abdomen/GI:Soft, Non tender, Bowel sounds present Extremities/Musculoskeletal:normal inspection, no edema Neurologic/Psych:AAOX2, grossly no focal neurological deficits, follows simple commands, + pill-rolling movement, resting tremor Skin: normal color, warm Results & Data Results & Data Vital Signs (Past 12 Hours) Vital Signs Temp Pulse Pulse Resp BP BP Pulse Ox 09/23/22 12:06 36.9 C 61 18 151/70 H 96 09/23/22 08:00 78 09/23/22 08:02 37.0 C 75 18 188/75 H 95 09/23/22 03:12 36.4 C L 66 16 128/67 97 O2 Del Method 09/23/22 12:06 Room Air 09/23/22 08:00 09/23/22 08:02 Room Air 09/23/22 03:12 Room Air Laboratory Results Short CBC 09/22/22 09/23/22 Range/Units 14:50 05:33 WBC 7.35 5.49 (4.8-10.8) K/ul Hgb 12.3 10.8 L (12.0-16.0) g/dl Hct 38.5 33.4 L (37.0-47.0) % Plt Count 318 275 (130-400) K/uL BMP 09/22/22 09/23/22 14:50 05:33 Sodium 140 139 Potassium 4.5 4.2 Chloride 105 106 Carbon Dioxide 30 27 BUN 18 17 Creatinine 0.80 0.75 Glucose 152 H 93 Calcium 9.5 9.0 Liver Function 09/22/22 Range/Units 14:50 Total Bilirubin 0.9 (0.2-1.0) mg/dl AST 18 (13-39) U/L ALT 14 (7-52) U/L Alkaline Phosphatase 53 (34-104) U/L Albumin 3.9 (3.4-5.0) gm/dl Urine 09/22/22 Range/Units 19:03 Urine Color Yellow Urine Appearance Clear (Clear) Urine pH 5.0 (4.5-7.5) Ur Specific [place] > 1.045 H (1.000-1.030) Urine Protein Negative (Negative) Urine Glucose (UA) Negative (Negative)
--- NOTE | 2022-09-23 14:06 | Discharge Summary ---
Date of Service September 23, 2022 Admission HPI Per Admitting Provider History obtained from family and records. Unable to obtain history from patient secondary to dementia Medical history significant for CAD status post stent, recurrent CVA, asthma/COPD as per records, hypertension, hyperlipidemia, DM2 on oral medications, Parkinson's disease with cognitive impairment, chronic anemia (baseline hemoglobin 10-11), past tobacco abuse. Monthly admissions since May,. Recent confinement 2 weeks ago for right cerebellar CVA presenting as transient unresponsiveness. Neurology recommended dual antiplatelet therapy for 3 weeks followed by indefinite Plavix Rx. Outpatient ZIO monitoring recommended outpatient. [facility] This morning patient noted to be unresponsive for a few hours. Hard to arouse. No witnessed seizures/tongue biting/incontinence. Patient subsequently woke up. Patient directed to ER by for further evaluation. Patient currently without complaints. Has no insight/recollection regarding events leading to ER transport. Patient at baseline mentation as per sister. 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 Admission Exam Per Admitting Provider GENERAL: Demented , pleasant, no respiratory distress SKIN: Pallor, warm HEENT: Pale palpebral conjunctivae, no ptosis, moist buccal mucosa NECK : Supple, no tenderness CHEST : CTA, no tenderness HEART : RRR, no obvious murmurs ABDOMEN: Some distention, nontender EXTREMITIES : Minimal LE swelling,no LE tenderness, overlapping/underlapping toes both feet NEUROLOGIC : Demented, no facial asymmetry, gait and stance not assessed Principal Diagnosis Recurrent unresponsive episode Likely sleep cycle related due to Parkinson's Discharge Data Allergies Allergy/AdvReac Type Severity Reaction Status Date / Time fluconazole Allergy Severe hives,rash,respiratory Verified 09/22/22 16:43 difficulty fluticasone Allergy Severe SHORT OF Verified 09/22/22 16:43 BREATH/RASH hydrochlorothiazide Allergy Severe Rash Verified 09/22/22 16:43 triamterene Allergy Severe Rash Verified 09/22/22 16:43 erythromycin base Allergy Intermediate RASH/NAUSEA Verified 09/22/22 16:43 /VOMITING isosorbide Allergy Intermediate Headache Verified 09/22/22 16:43 NSAIDS (Non-Steroidal Allergy Intermediate hives,rash Verified 09/22/22 16:43 Anti-Inflamma amifostine Allergy Unknown Unknown Verified 09/22/22 16:43 lisinopril Allergy Unknown Unknown Verified 09/22/22 16:43 Penicillins Allergy Unknown Unknown Verified 09/22/22 16:43 ethyl alcohol AdvReac Unknown Unknown Verified 09/07/22 15:16 Consultations 09/22/22 20:42 ED Decision to Admit Stat 09/22/22 23:17 Consult Neurology Routine Procedures Performed Laboratory Results WBC 5.49 K/ul (4.8-10.8) 09/23/22 05:33 RBC 3.72 M/uL (4.20-5.40) L 09/23/22 05:33 Hgb 10.8 g/dl (12.0-16.0) L 09/23/22 05:33 Hct 33.4 % (37.0-47.0) L 09/23/22 05:33 MCV 89.8 fL (80.0-100.0) 09/23/22 05:33 MCH 29.0 pg (25.0-34.0) 09/23/22 05:33 MCHC 32.3 g/dL (32.0-36.0) 09/23/22 05:33 RDW Std Deviation 53.4 fL (36.4-46.3) H 09/23/22 05:33 RDW Coeff of Jayden 16.2 % (11.5-14.5) H 09/23/22 05:33 Plt Count 275 K/uL (130-400) 09/23/22 05:33 MPV 10.0 fL (9.4-12.4) 09/23/22 05:33 Immature Gran % (Auto) 0.2 % 09/23/22 05:33 Neut % (Auto) 63.6 % 09/23/22 05:33 Lymph % (Auto) 23.9 % 09/23/22 05:33 [place] % (Auto) 9.5 % 09/23/22 05:33 Eos % (Auto) 2.4 % 09/23/22 05:33 Baso % (Auto) 0.4 % 09/23/22 05:33 Neut # (Auto) 3.50 K/uL (1.40-6.50) 09/23/22 05:33 Lymph # (Auto) 1.31 K/uL (1.2-3.4) 09/23/22 05:33 [place] # (Auto) 0.52 K/uL (0.11-0.59) 09/23/22 05:33 Eos # (Auto) 0.13 K/uL (0-0.50) 09/23/22 05:33 Baso # (Auto) 0.02 K/uL (0-0.2) 09/23/22 05:33 Immature Gran # (Auto) 0.01 K/uL (0.01-0.20) 09/23/22 05:33 PT 10.9 Seconds (9.0-12.0) 09/22/22 14:50 INR 1.0 (0.9-1.1) 09/22/22 14:50 APTT 29.8 Seconds (21.0-31.0) 09/22/22 14:50 PTT Ratio 1.1 09/22/22 14:50 Sodium 139 mmol/L (136-145) 09/23/22 05:33 Potassium 4.2 mmol/L (3.5-5.1) 09/23/22 05:33 Chloride 106 mmol/L (98-107) 09/23/22 05:33 Carbon Dioxide 27 mmol/L (21-32) 09/23/22 05:33 Anion Gap 6 (3-11) 09/23/22 05:33 BUN 17 mg/dl (6-23) 09/23/22 05:33 Creatinine 0.75 mg/dl (0.6-1.2) 09/23/22 05:33 Est Cr Clr Drug Dosing 56.2 ml/min 09/23/22 05:33 Est GFR ( Amer) 86.6 ml/min 09/23/22 05:33 Est GFR (Non-Af Amer) 74.8 ml/min 09/23/22 05:33 BUN/Creatinine Ratio 22.7 (10-20) H 09/23/22 05:33 Glucose 93 mg/dl (70-99(Fasting)) 09/23/22 05:33 POC Glucose 92 mg/dl (70-99) 09/23/22 11:28 Calcium 9.0 mg/dl (8.6-10.3) 09/23/22 05:33 Magnesium 1.7 mg/dl (1.7-2.4) 09/22/22 14:50 Total Bilirubin 0.9 mg/dl (0.2-1.0) 09/22/22 14:50 AST 18 U/L (13-39) 09/22/22 14:50 ALT 14 U/L (7-52) 09/22/22 14:50 Alkaline Phosphatase 53 U/L (34-104) 09/22/22 14:50 Troponin I High Sens 3.7 pg/ml (0-14) 09/22/22 14:50 C-Reactive Protein < 0.50 mg/dl (0-0.5) 09/22/22 14:50 Total Protein 6.5 gm/dl (6.0-8.3) 09/22/22 14:50 Albumin 3.9 gm/dl (3.4-5.0) 09/22/22 14:50 Globulin 2.6 gm/dl (2.5-4.0) 09/22/22 14:50 Albumin/Globulin Ratio 1.5 (0.9-2) 09/22/22 14:50 Procalcitonin < 0.05 ng/ml (0-0.5) 09/22/22 14:50 Urine Color Yellow 09/22/22 19:03 Urine Appearance Clear (Clear) 09/22/22 19:03 Urine pH 5.0 (4.5-7.5) 09/22/22 19:03 Ur Specific Desdemona > 1.045 (1.000-1.030) H 09/22/22 19:03 Urine Protein Negative (Negative) 09/22/22 19:03 Urine Glucose (UA) Negative (Negative) 09/22/22 19:03 Urine Ketones Negative (Negative) 09/22/22 19:03 Urine Blood Negative (Negative) 09/22/22 19:03 Urine Nitrite Negative (Negative) 09/22/22 19:03 Urine Bilirubin Negative (Negative) 09/22/22 19:03 Urine Urobilinogen Negative (Negative) 09/22/22 19:03 Ur Leukocyte Esterase Negative (Negative) 09/22/22 19:03 Nasal Screen MRSA (PCR) Negative (Negative) 09/23/22 00:30 SARS-CoV-2, RNA, NAAT NEGATIVE (NEGATIVE) 09/22/22 21:27 Impressions Chest X-Ray 09/22/22 14:28 XR chest 1V portable CLINICAL HISTORY: neuro deficit, acute stroke suspected TECHNIQUE: Single frontal radiograph of the chest was obtained. Comparison: Comparison is made to chest radiograph 09/07/2022 FINDINGS: No lines and tubes are seen. Calcified aortic knob is seen. The lungs are clear. No evidence of pleural effusion or pneumothorax. IMPRESSION: No acute chest disease. ACT 112: Negative or not required by law. Electronically signed by: Teddy Oakes M.D. 09/22/2022 4:[address] 09/22/22 14:28 CT angio neck with con, CT angio head w con, CT head/brain wo con CLINICAL HISTORY: neuro deficit, acute stroke suspected TECHNIQUE: Contiguous axial CT images of the head were acquired from the base of the skull to the vertex without intravenous contrast administration. CT angiography of the head and neck was performed following intravenous administration of iodinated contrast. Coronal and sagittal MIPS were obtained from the axial data set and were submitted for review. Automated dose lowering techniques and/or adjustment according to patient size were utilized for this examination. All measurements were calculated based on NASCET criteria. CT DOSE: 1150.03 mGy.cm Comparison: None available at the time of this dictation. FINDINGS: CT head: Areas of decreased attenuation are present in the periventricular and subcortical white matter bilaterally consistent with small vessel ischemic disease. Generalized cerebral atrophy with commensurate enlargement of the ventricles, sulci, and cisterns is also present. There is no acute intracranial hemorrhage or evidence of acute territorial infarction. No shift of the midline structures, mass effect, or extra-axial abnormalities are shown. Atherosclerotic calcifications are present in the intracranial segments of the internal carotid arteries. Left frontal encephalomalacia may represent prior infarct. Biapical emphysema is seen. CTA Neck: A 3 vessel aortic arch is shown. There is no significant atherosclerotic plaque in the aortic arch or the origins of the innominate, left common carotid, and left subclavian arteries. The common carotid, external carotid, cervical segments of the internal carotid arteries, and the cervical segments of the vertebral arteries are patent without hemodynamically significant stenosis. The left vertebral artery is dominant. CTA Head: The anterior and posterior cerebral circulations are patent. No hemodynamically significant stenosis, aneurysm, dissection, or arteriovenous malformation is shown. There is nonhemodynamically significant stenosis of the right V4 segment of the right vertebral artery likely secondary to atherosclerosis. 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 IMPRESSION: 1. No acute intracranial hemorrhage, evidence of acute territorial infarction, or other acute intracranial disease process. 2. No occlusion, hemodynamically significant stenosis, or dissection in the major cervical arteries. 3. No occlusion, hemodynamically significant stenosis, aneurysm, dissection, or arteriovenous malformation in the major intracranial arteries. Assessment of stenosis of the internal carotid arteries is based on NASCET criteria. ACT 112: Negative or not required by law. Electronically signed by: Teddy Oakes M.D. 09/22/2022 5:01 PM Head CTA 09/22/22 14:28 CT angio neck with con, CT angio head w con, CT head/brain wo con CLINICAL HISTORY: neuro deficit, acute stroke suspected TECHNIQUE: Contiguous axial CT images of the head were acquired from the base of the skull to the vertex without intravenous contrast administration. CT angiography of the head and neck was performed following intravenous administration of iodinated contrast. Coronal and sagittal MIPS were obtained from the axial data set and were submitted for review. Automated dose lowering techniques and/or adjustment according to patient size were utilized for this examination. All measurements were calculated based on NASCET criteria. CT DOSE: 1150.03 mGy.cm Comparison: None available at the time of this dictation. FINDINGS: CT head: Areas of decreased attenuation are present in the periventricular and subcortical white matter bilaterally consistent with small vessel ischemic disease. Generalized cerebral atrophy with commensurate enlargement of the ventricles, sulci, and cisterns is also present. There is no acute intracranial hemorrhage or evidence of acute territorial infarction. No shift of the midline structures, mass effect, or extra-axial abnormalities are shown. Atherosclerotic calcifications are present in the intracranial segments of the internal carotid arteries. Left frontal encephalomalacia may represent prior infarct. Biapical emphysema is seen. CTA Neck: A 3 vessel aortic arch is shown. There is no significant atherosclerotic plaque in the aortic arch or the origins of the innominate, left common carotid, and left subclavian arteries. The common carotid, external carotid, cervical segments of the internal carotid arteries, and the cervical segments of the vertebral arteries are patent without hemodynamically significant stenosis. The left vertebral artery is dominant. CTA Head: The anterior and posterior cerebral circulations are patent. No hemodynamically significant stenosis, aneurysm, dissection, or arteriovenous malformation is shown. There is nonhemodynamically significant stenosis of the right V4 segment of the right vertebral artery likely secondary to atherosclerosis. 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 IMPRESSION: 1. No acute intracranial hemorrhage, evidence of acute territorial infarction, or other acute intracranial disease process. 2. No occlusion, hemodynamically significant stenosis, or dissection in the major cervical arteries. 3. No occlusion, hemodynamically significant stenosis, aneurysm, dissection, or arteriovenous malformation in the major intracranial arteries. Assessment of stenosis of the internal carotid arteries is based on NASCET criteria. ACT 112: Negative or not required by law. Electronically signed by: Teddy Oakes M.D. 09/22/2022 5:01 PM Neck CTA 09/22/22 14:28 CT angio neck with con, CT angio head w con, CT head/brain wo con CLINICAL HISTORY: neuro deficit, acute stroke suspected TECHNIQUE: Contiguous axial CT images of the head were acquired from the base of the skull to the vertex without intravenous contrast administration. CT angiography of the head and neck was performed following intravenous administration of iodinated contrast. Coronal and sagittal MIPS were obtained from the axial data set and were submitted for review. Automated dose lowering techniques and/or adjustment according to patient size were utilized for this examination. All measurements were calculated based on NASCET criteria. CT DOSE: 1150.03 mGy.cm Comparison: None available at the time of this dictation. FINDINGS: CT head: Areas of decreased attenuation are present in the periventricular and subcortical white matter bilaterally consistent with small vessel ischemic disease. Generalized cerebral atrophy with commensurate enlargement of the ventricles, sulci, and cisterns is also present. There is no acute intracranial hemorrhage or evidence of acute territorial infarction. No shift of the midline structures, mass effect, or extra-axial abnormalities are shown. Athero sclerotic calcifications are present in the intracranial segments of the internal carotid arteries. Left frontal encephalomalacia may represent prior infarct. Biapical emphysema is seen. CTA Neck: A 3 vessel aortic arch is shown. There is no significant atherosclerotic plaque in the aortic arch or the origins of the innominate, left common carotid, and left subclavian arteries. The common carotid, external carotid, cervical segments of the internal carotid arteries, and the cervical segments of the vertebral arteries are patent without hemodynamically significant stenosis. The left vertebral artery is dominant. CTA Head: The anterior and posterior cerebral circulations are patent. No hemodynamically significant stenosis, aneurysm, dissection, or arteriovenous malformation is shown. There is nonhemodynamically significant stenosis of the right V4 segment of the right vertebral artery likely secondary to atherosclerosis. 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 IMPRESSION: 1. No acute intracranial hemorrhage, evidence of acute territorial infarction, or other acute intracranial disease process. 2. No occlusion, hemodynamically significant stenosis, or dissection in the m ajor cervical arteries. 3. No occlusion, hemodynamically significant stenosis, aneurysm, dissection, or arteriovenous malformation in the major intracranial arteries. Assessment of stenosis of the internal carotid arteries is based on NASCET criteria. ACT 112: Negative or not required by law. Electronically signed by: Teddy Oakes M.D. 09/22/2022 5:01 PM Brain MRI 09/22/22 17:15 MR brain wo con CLINICAL HISTORY: eval for stroke TECHNIQUE: Multiplanar and multisequence MR images of the brain were obtained without intravenous contrast. Comparison: Comparison is made to MRI brain 09/07/2022 FINDINGS: No abnormal restricted diffusion is identified. Foci of T2 and FLAIR hyperintensity are noted in the paraventricular areas consistent with chronic small vessel ischemic disease. Ex vacuo ventriculomegaly and sulcal enlargement is noted compatible with diffuse volume loss. No mass is seen. There is no mass effect or midline shift. There is no evidence of acute intraparenchymal hemorrhage. No extra axial fluid collections are seen. The corpus callosum, pituitary gland, and cerebellar tonsils appear grossly unremarkable. Flow voids of the major intracranial arterial vessels are identified. The imaged portions of the paranasal sinuses, mastoid air cells, and orbits are unremarkable. IMPRESSION: Chronic volume loss and age related white matter changes without evidence of acute abnormality. In particular no evidence of acute infarct. ACT 112: Negative or not required by law. Electronically signed by: Teddy Oakes M.D. 09/22/2022 6:33 PM Ordered Studies 09/22/22 14:28 CT angio head w con Stat CT angio neck with con Stat CT head/brain wo con Stat 09/22/22 17:15 MR brain wo con Stat Hospital Course (1) Episode of unresponsiveness: Recurrent episodes Unclear etiology. Likely sleep cycle related due to Parkinson's --MRI Brain:Chronic volume loss and age related white matter changes without evidence of acute abnormality. In particular no evidence of acute infarct. --Head/Neck:No acute intracranial hemorrhage, evidence of acute territorial infarction, or other acute intracranial disease process. No occlusion, hemodynamically significant stenosis, or dissection in the major cervical arteries. No occlusion, hemodynamically significant stenosis, aneurysm, dissection, or arteriovenous malformation in the major intracranial arteries. No issues on monitor Appreciate neurology input Can consider sleep study as outpatient per neurology Plan to discharge back to [facility] today H/O Recent cerebellar CVA MRI as above Continue aspirin, Plavix, Lipitor Was to continue dual antiplatelet therapy for 1 more week and then Plavix alone (as suggested on prior admission) H/O Parkinson's dementia CAD S/P stent Asthma/COPD as per records, stable Hypertension, stable hyperlipidemia on statin Rx DM2 on oral medications, well-controlled as of recent hemoglobin A1c of 7 last October 2021 Chronic anemia, hemoglobin at baseline Past tobacco abuse. Continue home medications DVT Px: Lovenox SQ Code Status Full code Disposition Acute rehab Total Time Total Time Spent Total Time Spent (In Minutes): 55 minutes Discharge Plan Discharge Items Patient Disposition: Transfer Inpatient Rehab Fac Reason For Visit: TRANSIENT UNRESPONIVENESS Discharge Diagnosis: Recurrent unresponsive episode Likely sleep cycle related due to Parkinson's Activity: Per Instructions section Exercise/Sports: Gradually increase as tolerated Non-emergency contact: Primary Care Provider and Neurologist Call non-emergency contact if: you have any medication questions, your symptoms worsen and your pain is concerning for you Follow-up/Referrals: Jag Stover MD [Primary Care Provider] - Diet: Carb Consistent or DM2 and Heart Healthy Addtl Attending Provider Instructions: Follow-up with your primary care physician in 1 week upon discharge from rehab facility Follow-up with your neurologist in 2 weeks -- Get ZIO monitor arranged as outpatient to rule out arrhythmias. --Consider getting sleep study as outpatient as recommended by your neurologist. --- Continue dual antiplatelet therapy with aspirin and Plavix for 5 more days and then transition to Plavix 75 mg daily monotherapy. Seek immediate medical attention if your symptoms reoccur or worsen Please take all medications as instructed on discharge list below. Please call if you have any questions or problems. You can reach a [facility] hospitalist on duty at [facility] 24 hours a day by calling [phone] Pending Studies at Discharge: No Stand-Alone Forms: My [facility] Skilled Items Patient informed of condition?: No DNR: No Discharge Level of Care: Acute rehab Communicable Disease: No Discharge Prognosis: Stable Lines: None Urinary Catheter: No Medications and DC Order Prescriptions: Continued aspirin 81 mg Tablet,Delayed Release (Dr/Ec) 81 mg PO QAM Rx Instructions: STARTED 09/13/22 FOR 16 DAYS. Myrbetriq 50 mg tablet extended release 24 hr 50 mg PO QPM Januvia 100 mg tablet 100 mg PO QAM metformin 1,000 mg tablet 1,000 mg PO BIDM losartan 25 mg tablet 25 mg PO QAM albuterol sulfate 90 mcg/actuation HFA aerosol inhaler 2 puff INHALATION Q4H PRN (Reason: Shortness Of Breath Or Wheezing) duloxetine 30 mg capsule,delayed release(DR/EC) 30 mg PO Q12H rivastigmine 9.5 mg/24 hour patch 24 hour 1 patch topical QPM Rx Instructions: REMOVE OLD PATH BEFORE REPLACING NEW ONE. Incruse Ellipta 62.5 mcg/actuation blister with device 1 inh INHALATION QAM glimepiride 1 mg Tablet 1 mg PO DAILY carbidopa-levodopa 25-100 mg tablet 1.5 tab PO QID Rx Instructions: 1.5 TABS AT 0800, 1200, 1600 & 2000 clopidogrel 75 mg Tablet 75 mg PO QAM Qty: 30 0RF nystatin [Nystop] 100,000 unit/gram Powder 1 applic EXT BID Qty: 0 0RF acetaminophen [Tylenol] 325 mg Tablet 650 mg PO Q4H MDD 3,250 GRAMS APAP/24 HOURS PRN (Reason: Pain) atorvastatin 10 mg Tablet 10 mg PO HS ondansetron HCl [Zofran] 4 mg Tablet 4 mg PO Q4H PRN (Reason: NAUSEA/VOMITING) sennosides-docusate sodium [Senokot-S] 8.6-50 mg Tablet 1 tab-cap PO QDL PRN (Reason: Constipation) bisoprolol fumarate 5 mg Tablet 5 mg PO DAILY magnesium hydroxide [Milk of Magnesia] 400 mg/5 mL Suspension 30 ml PO DAILY PRN (Reason: Constipation) hydrochlorothiazide 12.5 mg Capsule 6.25 mg PO DAILY docusate sodium 100 mg Capsule 100 mg PO BID polyethylene glycol 3350 [Miralax] 17 gram/dose Powder 17 g PO QDL PRN (Reason: Constipation) heparin (porcine) 5,000 unit/mL Solution 5,000 unit SUBCUT Q12H fluticasone furoate-vilanterol [Breo Ellipta] 200-25 mcg/dose Blister With Device 1 inh INHALATION DAILY pyridoxine (vitamin B6) 50 mg tablet 50 mg PO BID Rx Instructions: BREAKFAST & LUNCH Discharge Orders: Discharge Order (Routine); Ordered 09/23/22 Ordered By: Scott Rodriguez Admission Data Admit Date/Time: 09/22/22 22:14 Attending Provider: Scott Rodriguez Admit Provider: Toy Farmer Primary Care Provider: Jag Stover Other Providers: Toy Farmer ; [facility] Other Interventions: Discharge Summary Assessment (RN) Last Done: 09/23/22 13:53
[2022-09-23] MEDS ORDERED: VIBEGRON 75 MG TAB PO SCH (21:00)
[2022-09-23] MEDS ORDERED: ATORVASTATIN 10 MG TAB PO SCH (21:00)
== END 2022-09-23 16:52 ==
LOC: ED 14:04 → 2N 14:04

== ENCOUNTER 2022-11-16 13:49 | Inpatient (IN) ==
--- NOTE | 2022-11-16 14:15 | Emergency Department Note ---
Impression & Plan Confusion, Cough, Acute UTI ED Provider Note Provider: Billy Mayfield MD DATE OF SERVICE: 11/16/2022 CHIEF COMPLAINT: Confusion, cough HISTORY OF PRESENT ILLNESS: Patient is a 82-year-old female history of stroke, CAD diabetes, UTI, Parkinson's presenting here today via ambulance from her [facility]. Lives with sister. Patient herself denies significant complaint. States maybe earlier little bit of back discomfort but that resolved. States she has fallen some but denies falls the last several days. Home nursing came to visit her today. Thought that she seemed physically and mentally not herself. Last saw her a week ago. Recommend she come to the hospital for evaluation. Patient was seen by her primary doctor yesterday for some cough and what the sister describes as bronchitis. Somewhat productive cough reported. Has used nebulizer at home. No fevers reported or sick contact. Sister reports she is noted a bit of a dry rash in the forehead they talked with the doctor about. Recently started Plavix. Had a fall just over a month ago when she was briefly at [facility] for respite care has a healing contusion on her right cheek from then. Patient denies headache or dizziness. States maybe her speech is a bit off. Denies any numbness or tingling. Evidently another sister talk to the patient via phone around 330a and 730a this morning and she seemed normal at that time. PAST MEDICAL HISTORY: As noted above MEDICATIONS: Reviewed home medication list SOCIAL HISTORY: Lives at home with sister PHYSICAL EXAM: GENERAL: alert and oriented in no acute distress on stretcher Head: normocephalic with some resolving small area of contusion just below the right eye over the maxillary cheek without tenderness or crepitus. EYES: No injection, discharge or icterus. PERRL, EOMI. NECK: Trachea midline. Supple. ENT: Mucous membranes pink and moist. Pharynx without erythema or exudate. LUNGS: Airway patent. No retractions. Breath sounds clear to auscultation HEART: Regular rate and rhythm. No chest wall tenderness ABDOMEN: Soft and non-tender, without guarding or rebound. SKIN: Acyanotic, warm, dry, without rashes EXTREMITIES: Without swelling, tenderness or deformity with the right forearm in a Velcro removable brace NEUROLOGICAL: No focal deficits. No facial droop and tongue midline. Maybe some very slight aphasia but not significantly dysarthric. Normal strength and tone in the extremities. Sensation to gross touch normal. EK bpm normal sinus rhythm. Some baseline artifact. No clear acute ST segment elevation or depression with a QTc of 411. CONTINUOUS CARDIAC MONITORING: was ordered and showed a heart rate of 60s-70s bpm in normal sinus rhythm Patient's laboratory studies and imaging reviewed. Differential includes Infection, dehydration, metabolic abnormality, hypo/hyperglycemia, electrolyte disturbance, anemia, hypoxia, cardiac sources, intracerebral event, toxicologic, neurologic, as well as other pathologies. IMPRESSION/MEDICAL DECISION MAKING: Patient with multiple comorbidities including prior history of stroke presenting here today reported may be somewhat more confused than normal and having some cough symptoms mildly productive. Evidently seen by his PCP yesterday and reviewed their note from the [facility]. Has been using nebulizers. Not hypoxic here. Denies any fall the last several days but did fall a month ago and has some healing contusion to the right cheek. Has more recently been started on Plavix and there is a history again of CVA reported. Will send for CT and CT angiograms of the head and neck to look for any possible stroke, bleed, or acute vascular finding that could explain the symptoms. Basic blood work including urinalysis and viral panel ordered given her reports of some confusion as well as the cough complaint. Chest x-ray completed and on review of image and report agree no evidence of focal consolidation concerning for pneumonia or significant pleural effusion/pulmonary edema. Does not appear septic upon evaluation with normal temperature, pulse, oxygen level on room air, with mild hypertension. Patient does not appear drowsy. Doubt hypercarbia given her stable respiratory status at this point on exam. Blood work here with stable mild anemia. Leukocytosis 11.1 is new today. No significant chemistry abnormalities signs of elevated creatinine. No significant LFT abnormalities. Normal troponin. No anion gap. Normal bicarb. Patient with incontinence issue and a urine straight cath performed by nursing staff. CT of the head and CT angiograms of the head and neck without evidence of acute bleed, mass, or any severe vascular abnormality/aneurysm/occlusion with some mild plaque of the bilateral carotids as well as some multifocal intracranial stenoses. Cannot totally exclude CVA but question more related to her positive urinalysis. Reviewed prior microbiology. Discussed with pharmacy. Given enteric coccus findings. Given a dose of vancomycin and ceftriaxone for Enterococcus coverage of gram-negative coverage. Discussed with patient and family at bedside. Will observe. Hospitalist consulted. DIAGNOSIS: Confusion, cough, acute UTI DISPOSITION: Hospitalist will evaluate Patient was agreeable with this plan. Past Med/Surg History Medical History Anxiety Asthma CAD (coronary artery disease) COPD (chronic obstructive pulmonary disease) COVID-19 Delirium Dementia Diabetes mellitus, type II Generalized weakness GERD (gastroesophageal reflux disease) History of TIA (transient ischemic attack) Hyperlipidemia Hypertension Multiple fractures of ribs of left side Parkinson's disease Transient confusion Surgical History Hx of appendectomy S/P cholecystectomy Stented coronary artery Family History Other Diabetes Heart disease Hypertension Social History Smoking Status: Unknown if ever smoked Tobacco Type: Cigarettes Cigarettes Per Day: 1 pack/day; Second Hand Exposure: No; Do You Dip or Chew Tobacco: No; Hx Alcohol Use: No Hx Substance Use: No Preferred Language: Turkmen Communication Ability: Effective Communication Ability Comment: memory loss, confusion at times Visual Impairment: Limited Hearing Ability: Normal Earring Maker Required: No Beliefs That Will Affect Care: None marital status: Single Current Living Situation: [facility] and Rehab Current Living Situation Comment: Lives w/ sister, at Rehab facility at this time current occupational status: retired 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[place], [place] How many Children do You have: 0 Feels Safe at Home: Yes Diet: regular caffeine: Yes (rare) during the past year weight has: remained stable Assistive Devices: Walker Allergies Allergies Allergy/AdvReac Type Severity Reaction Status Date / Time fluconazole Allergy Severe hives,rash,respiratory Verified 11/11/22 13:04 difficulty fluticasone Allergy Severe SHORT OF Verified 11/11/22 13:04 BREATH/RASH hydrochlorothiazide Allergy Severe Rash Verified 11/11/22 13:04 triamterene Allergy Severe Rash Verified 11/11/22 13:04 erythromycin base Allergy Intermediate RASH/NAUSEA Verified 11/11/22 13:04 /VOMITING isosorbide Allergy Intermediate Headache Verified 11/11/22 13:04 NSAIDS (Non-Steroidal Allergy Intermediate hives,rash Verified 11/11/22 13:04 Anti-Inflamma amifostine Allergy Unknown Unknown Verified 11/11/22 13:04 lisinopril Allergy Unknown Unknown Verified 11/11/22 13:04 Penicillins Allergy Unknown Unknown Verified 11/11/22 13:04 ethyl alcohol AdvReac Unknown Unknown Verified 11/11/22 13:04 Home Meds Home Medications Medication Instructions Recorded Confirmed albuterol sulfate 90 mcg/actuation 2 puff inhalation Q4H PRN 02/06/22 11/16/22 aerosol inhaler Shortness Of Breath Or Wheezing carbidopa 25 mg-levodopa 100 mg 1.5 tab PO QID 02/06/22 11/16/22 tablet duloxetine 30 mg capsule,delayed 30 mg PO BID 02/06/22 11/16/22 release glimepiride 1 mg tablet 0 mg PO DAILY 02/06/22 11/16/22 losartan 25 mg tablet 25 mg PO QAM 02/06/22 11/16/22 metformin 1,000 mg tablet 1,000 mg PO BIDM 02/06/22 11/16/22 rivastigmine 9.5 mg/24 hour 1 patch topical QAM 02/06/22 11/16/22 transdermal patch umeclidinium 62.5 mcg/actuation 1 inh inhalation QAM 02/06/22 11/16/22 blister powder for inhalation (Incruse Ellipta) mirabegron 50 mg tablet,extended 50 mg PO QAM 07/19/22 11/16/22 release 24 hr (Myrbetriq) sitagliptin phosphate 100 mg 100 mg PO QAM 07/19/22 11/16/22 tablet (Januvia) acetaminophen 325 mg tablet 650 mg PO Q6H PRN Pain 09/22/22 11/11/22 (Tylenol) magnesium hydroxide 400 mg/5 mL 30 ml PO DAILY PRN Constipation 09/22/2211/11 oral suspension (Milk of Magnesia) pyridoxine (vitamin B6) 50 mg 50 mg PO QAM 09/22/22 11/16/22 tablet budesonide-formoterol HFA 160 2 puff inhalation BID 10/13/22 11/16/22 mcg-4.5 mcg/actuation aerosol inhaler rosuvastatin 5 mg tablet 5 mg PO DAILY 10/13/22 11/16/22 bisoprolol 2.5 1 tab PO DAILY 11/16/22 11/16/22 mg-hydrochlorothiazide 6.25 mg tablet ipratropium 0.5 mg-albuterol 3 mg 3 ml inhalation TID 11/16/22 11/16/22 (2.5 mg base)/3 mL nebulization soln mupirocin 2 % topical ointment 0 applic topical DAILY 11/16/22 11/16/22 nystatin 100,000 unit/gram topical 0 applic EXT BID 11/16/22 11/16/22 powder (Nystop) Previous Rx's Medication Instructions Recorded clopidogrel 75 mg tablet 75 mg PO QAM #30 tabs 09/12/22 Results & Data (ED) Vital Signs Vital Signs - 24 hr 11/16/22 13:55 11/16/22 13:55 11/16/22 14:06 Temperature 36.6 C Temperature Source Oral Pulse Rate 74 Pulse Rate [Apical] Pulse Rhythm Regular Pulse Rhythm [Apical] Pulse Strength Normal Respiratory Rate 18 Respiratory Effort / Characteristics Non-Labored Respiratory Depth Normal Respiratory Pattern Regular Blood Pressure 133/88 Blood Pressure [Right Arm] Blood Pressure Mean 103 Blood Pressure Mean [Right Arm] Blood Pressure Position Lying Blood Pressure Position [Right Arm] Pulse Oximetry 95 Oxygen Delivery Method Room Air Room Air Room Air Sepsis Recent Fever Within 48 Hours No Sepsis New/Unexplained Change in Mental Status Yes Sepsis Action Taken by Nursing No Action Required 11/16/22 15:48 11/16/22 16:22 Temperature Temperature Source Pulse Rate 74 Pulse Rate [Apical] 80 Pulse Rhythm Pulse Rhythm [Apical] Regular Pulse Strength Respiratory Rate 20 Respiratory Effort / Characteristics Non-Labored Spontaneous Respiratory Depth Normal Respiratory Pattern Regular Blood Pressure Blood Pressure [Right Arm] 123/57 L Blood Pressure Mean Blood Pressure Mean [Right Arm] 79 Blood Pressure Position Blood Pressure Position [Right Arm] Lying Pulse Oximetry 93 Oxygen Delivery Method Room Air Sepsis Recent Fever Within 48 Hours Sepsis New/Unexplained Change in Mental Status Sepsis Action Taken by Nursing Laboratory Data 11/16/22 14:00 11/16/22 14:00 Lab Results 11/16/22 11/16/22 11/16/22 Range/Units 14:00 14:00 14:00 WBC 11.10 H (4.8-10.8) K/ul RBC 3.68 L (4.20-5.40) M/uL Hgb 10.6 L (12.0-16.0) g/dl Hct 33.3 L (37.0-47.0) % MCV 90.5 (80.0-100.0) fL MCH 28.8 (25.0-34.0) pg MCHC 31.8 L (32.0-36.0) g/dL RDW Std Deviation 51.3 H (36.4-46.3) fL RDW Coeff of Jayden 15.4 H (11.5-14.5) % Plt Count 289 (130-400) K/uL MPV 9.5 (9.4-12.4) fL Immature Gran % (Auto) 0.3 % Neut % (Auto) 75.1 % Lymph % (Auto) 15.0 % [place]ke % (Auto) 8.5 % Eos % (Auto) 0.9 % Baso % (Auto) 0.2 % Neut # (Auto) 8.34 H (1.40-6.50) K/uL Lymph # (Auto) 1.67 (1.2-3.4) K/uL Cocke # (Auto) 0.94 H (0.11-0.59) K/uL Eos # (Auto) 0.10 (0-0.50) K/uL Baso # (Auto) 0.02 (0-0.2) K/uL Immature Gran # (Auto) 0.03 (0.01-0.20) K/uL Sodium 140 (136-145) mmol/L Potassium 4.2 (3.5-5.1) mmol/L Chloride 104 (98-107) mmol/L Carbon Dioxide 26 (21-32) mmol/L Anion Gap 10 (3-11) BUN 22 (6-23) mg/dl Creatinine 0.97 (0.6-1.2) mg/dl Est Cr Clr Drug Dosing Not Reportable Est GFR ( Amer) 63.5 ml/min Est GFR (Non-Af Amer) 54.8 ml/min BUN/Creatinine Ratio 22.7 H (10-20) Glucose 96 (70-99(Fasting)) mg/dl Calcium 9.6 (8.6-10.3) mg/dl Magnesium 1.9 (1.7-2.4) mg/dl Total Bilirubin 0.6 (0.2-1.0) mg/dl AST 13 (13-39) U/L ALT 4 L (7-52) U/L Alkaline Phosphatase 59 (34-104) U/L Troponin I High Sens 2.6 (0-14) pg/ml Total Protein 6.1 (6.0-8.3) gm/dl Albumin 3.7 (3.4-5.0) gm/dl Globulin 2.4 L (2.5-4.0) gm/dl Albumin/Globulin Ratio 1.5 (0.9-2) Procalcitonin (0-0.5) ng/ml TSH 0.157 L (0.300-4.500) uIu/ml Free T4 0.93 (0.61-1.60) ng/dl Urine Color Urine Appearance (Clear) Urine pH (4.5-7.5) Ur Specific [place] (1.000-1.030) Urine Protein (Negative) Urine Glucose (UA) (Negative) Urine Ketones (Negative) Urine Blood (Negative) Urine Nitrite (Negative) Urine Bilirubin (Negative) Urine Urobilinogen (Negative) Ur Leukocyte Esterase (Negative) Urine WBC (Auto) (0-5) /hpf Urine RBC (Auto) (0-4) /hpf U Hyaline Cast (Auto) (0-5) /lpf U Epithel Cells (Auto) (0-5) /lpf Urine Bacteria (Auto) (Negative) Adenovirus (PCR) (NotDetected) B. pertussis DNA (PCR) (NotDetected) B.parapertussis DNA PCR (NotDetected) C. pneumoniae DNA (PCR) (NotDetected) Coronavirus OC43 (PCR) (NotDetected) Coronavirus HKU1 (PCR) (NotDetected) Coronavirus 229E (PCR) (NotDetected) SARS-CoV-2 (PCR) (NotDetected) Coronavirus NL63 (PCR) (NotDetected) Human Metapneumovir PCR (NotDetected) Influenza Type A (PCR) (NotDetected) Influenza Type B (PCR) (NotDetected) M. pneumoniae (PCR) (NotDetected) Parainfluenza 1 (PCR) (NotDetected) Parainfluenza 2 (PCR) (NotDetected) Parainfluenza 3 (PCR) (NotDetected) Parainfluenza 4 (PCR) (NotDetected) RSV (PCR) (NotDetected) Entero/Rhino (PCR) (NotDetected) 11/16/22 11/16/22 11/16/22 Range/Units 14:00 15:07 15:54 WBC (4.8-10.8) K/ul RBC (4.20-5.40) M/uL Hgb (12.0-16.0) g/dl Hct (37.0-47.0) % MCV (80.0-100.0) fL MCH (25.0-34.0) pg MCHC (32.0-36.0) g/dL RDW Std Deviation (36.4-46.3) fL RDW Coeff of Jayden (11.5-14.5) % Plt Count (130-400) K/uL MPV (9.4-12.4) fL Immature Gran % (Auto) % Neut % (Auto) % Lymph % (Auto) % Cocke % (Auto) % Eos % (Auto) % Baso % (Auto) % Neut # (Auto) (1.40-6.50) K/uL Lymph # (Auto) (1.2-3.4) K/uL [place] # (Auto) (0.11-0.59) K/uL Eos # (Auto) (0-0.50) K/uL Baso # (Auto) (0-0.2) K/uL Immature Gran # (Auto) (0.01-0.20) K/uL Sodium (136-145) mmol/L Potassium (3.5-5.1) mmol/L Chloride (98-107) mmol/L Carbon Dioxide (21-32) mmol/L Anion Gap (3-11) BUN (6-23) mg/dl Creatinine (0.6-1.2) mg/dl Est Cr Clr Drug Dosing Est GFR ( Amer) ml/min Est GFR (Non-Af Amer) ml/min BUN/Creatinine Ratio (10-20) Glucose (70-99(Fasting)) mg/dl Calcium (8.6-10.3) mg/dl Magnesium (1.7-2.4) mg/dl Total Bilirubin (0.2-1.0) mg/dl AST (13-39) U/L ALT (7-52) U/L Alkaline Phosphatase (34-104) U/L Troponin I High Sens (0-14) pg/ml Total Protein (6.0-8.3) gm/dl Albumin (3.4-5.0) gm/dl Globulin (2.5-4.0) gm/dl Albumin/Globulin Ratio (0.9-2) Procalcitonin 0.10 (0-0.5) ng/ml TSH (0.300-4.500) uIu/ml Free T4 (0.61-1.60) ng/dl Urine Color Yellow Urine Appearance Clear (Clear) Urine pH 5.5 (4.5-7.5) Ur Specific [place] > 1.045 H (1.000-1.030) Urine Protein 1+ H (Negative) Urine Glucose (UA) Negative (Negative) Urine Ketones Negative (Negative) Urine Blood Negative (Negative) Urine Nitrite Negative (Negative) Urine Bilirubin Negative (Negative) Urine Urobilinogen Negative (Negative) Ur Leukocyte Esterase 2+ H (Negative) Urine WBC (Auto) >30 H (0-5) /hpf Urine RBC (Auto) 5-10 H (0-4) /hpf U Hyaline Cast (Auto) 0 (0-5) /lpf U Epithel Cells (Auto) 0-5 (0-5) /lpf Urine Bacteria (Auto) Negative (Negative) Adenovirus (PCR) Not Detected (NotDetected) B. pertussis DNA (PCR) Not Detected (NotDetected) B.parapertussis DNA PCR Not Detected (NotDetected) C. pneumoniae DNA (PCR) Not Detected (NotDetected) Coronavirus OC43 (PCR) Not Detected (NotDetected) Coronavirus HKU1 (PCR) Not Detected (NotDetected) Coronavirus 229E (PCR) Not Detected (NotDetected) SARS-CoV-2 (PCR) Not Detected (NotDetected) Coronavirus NL63 (PCR) Not Detected (NotDetected) Human Metapneumovir PCR Not Detected (NotDetected) Influenza Type A (PCR) Not Detected (NotDetected) Influenza Type B (PCR) Not Detected (NotDetected) M. pneumoniae (PCR) Not Detected (NotDetected) Parainfluenza 1 (PCR) Not Detected (NotDetected) Parainfluenza 2 (PCR) Not Detected (NotDetected) Parainfluenza 3 (PCR) Not Detected (NotDetected) Parainfluenza 4 (PCR) Not Detected (NotDetected) RSV (PCR) Not Detected (NotDetected) Entero/Rhino (PCR) Not Detected (NotDetected) Administered Medications Discontinued Medications Vancomycin HCl 1,500 mg/ (Sodium Chloride) 530 mls @ 200 mls/hr IV NOW ONE Stop: 11/16/22 19:31 Last Admin: 11/16/22 17:27 Dose: 200 mls/hr Documented By: SRUTHI Ceftriaxone Sodium (Rocephin) 2,000 mg in 70 mls @ 140 mls/hr IV NOW STA Stop: 11/16/22 17:22 Last Infusion: 11/16/22 17:51 Dose: 0 mls/hr Documented By: Admin: 11/16/22 17:03 Dose: 140 mls/hr Documented By: JULIANN Ioversol (Ioversol 350 Mg 125ml Prefilled Syringe) 118 ml IV ONCE ONE Stop: 11/16/22 15:20 Last Admin: 11/16/22 15:20 Dose: 118 ml Documented By: VARGHESE Imaging Data Radiologist's Impression: Head CT 11/16/22 14:05 CT OF THE HEAD WITHOUT CONTRAST CLINICAL HISTORY: Neuro deficit. Confusion. COMPARISON STUDY: MRI of the brain September 22, 2022. Head CT October 13, 2022. TECHNIQUE: Helical axial images of the head were obtained without IV contrast. Automated exposure control was utilized for the study. A dose lowering technique was utilized adhering to the principles of ALARA. FINDINGS: No acute intracranial hemorrhage, midline shift or mass effect is present. The ventricular system is stable. Encephalomalacia within the left frontal lobe is unchanged. A right frontal scalp contusion has nearly completely resolved. The basal cisterns are patent. No extra-axial collections are present. There are no findings to suggest acute dural sinus thrombosis or acute territorial infarct. No significant calvarial abnormalities are present. Visualized portions of the sinuses and mastoid air cells are clear. IMPRESSION: No acute intracranial findings. ACT 112: Negative or not required by law. Electronically signed by: Rj Andrew M.D. 11/16/2022 3:38 PM Head CTA 11/16/22 14:05 CTA ANGIOGRAPHY OF THE HEAD CLINICAL HISTORY: neuro deficit COMPARISON STUDY: CTA of the head September 22, 2022. TECHNIQUE: Helical axial images of the head were obtained following uneventful intravenous administration of 118 cc of Optiray. Sagittal and coronal reconstructions were viewed as well as maximal intensity projections on an independent 3-D workstation. Automated exposure control was utilized for the study. A dose lowering technique was utilized adhering to the principles of ALARA. FINDINGS: No acute intracranial hemorrhage was identified on the head CT which will be reported separately. Left frontal encephalomalacia is unchanged. There is extensive plaque within the right cavernous carotid with severe stenosis. . The right A1 segment is diminutive. There is extensive plaque within the left cavernous carotid with without significant stenosis. persistence of the left posterior cerebral artery. There is moderate to severe stenosis of the intracranial portion of the right vertebral artery. There is moderate stenosis of the intracranial portion of the left vertebral. Basilar artery is patent. Posterior cerebral arteries are patent. There is no central vessel occlusion. There is no intracranial aneurysm. IMPRESSION: 1. No central vessel occlusion. No intracranial aneurysm. 2. 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 ACT 112: Negative or not required by law. Electronically signed by: Rj Andrew M.D. 11/16/2022 3:47 PM Neck CTA 11/16/22 14:05 CT ANGIOGRAPHY OF THE NECK WITH CONTRAST CLINICAL HISTORY: neuro deficit COMPARISON STUDY: CTA of the neck September 22, 2022. Carotid ultrasound September 08, 2022. Technique: CT angiography of the carotid and vertebral arteries was obtained using Optiray and 3D reconstruction on an independent workstation. NASCET criteria was utilized. Automated exposure control was utilized for the study. A dose lowering technique was utilized adhering to the principles of ALARA. CT DOSE: 1001.70 mGy.cm Findings: Visualized portions of the lung apices are unremarkable. There is no cervical spine fracture. Left lobe thyroid goiter is noted. There is moderate plaque within the proximal right internal carotid artery without significant stenosis. There is mild plaque within the proximal left internal carotid artery without stenosis. The bilateral vertebral arteries are patent. Origins of the vertebral arteries are suboptimally assessed on this exam. There is no dissection or aneurysm within the neck. CTA of the head will be reported sepa rately. IMPRESSION: Mild to moderate plaque within the proximal bilateral cervical internal carotid arteries without stenosis. ACT 112: Negative or not required by law. Electronically signed by: Rj Andrew M.D. 11/16/2022 3:42 PM Chest X-Ray 11/16/22 14:06 XR chest 1V portable CLINICAL HISTORY: Shortness of breath and cough. COMPARISON STUDY: Chest CT March 29, 2022. Chest radiograph October 13, 2022. FINDINGS: Lung volumes are normal. Minimal left basilar opacity favors atelectasis. There is no pneumothorax or pleural effusion. Cardiac size is stable. Mediastinal contours are normal. There is no evidence for pulmonary safia a. IMPRESSION: No acute cardiopulmonary findings. ACT 112: Negative or not required by law. Electronically signed by: Rj Andrew M.D. 11/16/2022 2:38 PM Brain MRI 11/16/22 18:05 MRI OF THE BRAIN WITHOUT CONTRAST CLINICAL HISTORY: Altered mental status. Evaluate for CVA COMPARISON STUDY: MRI of the brain September 22, [address] and CTA of the head performed earlier today. TECHNIQUE: Utilizing a 1.5 Chrissie magnet and dedicated coil, multiplanar, multiecho imaging of the brain was performed without IV contrast. FINDINGS: The diffusion-weighted sequence is moderately compromised by artifact. However, there is no convincing evidence for acute infarct on this exam. No acute intracranial hemorrhage, midline shift or mass effect is present. Ventricular system is stable. Basal cisterns are patent. There are no extra- axial collections. There is moderate atrophy. Old left frontal lobe infarct is unchanged. White matter T2 hyperintense foci are similar to MRI of September 22, 2022 and suggest small vessel disease. No intracranial masses are identified on this unenhanced exam. IMPRESSION: 1. Diffusion-weighted sequence moderately compromised by artifact. However, no definite acute infarct. 2. No significant change in appearance of the brain since MRI of September 22, 2022. 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 ACT 112: Negative or not required by law. Electronically signed by: Rj Andrew M.D. 11/16/2022 7:14 PM Discharge Plan Visit Data Chief Complaint: Confusion Stated Complaint: CONFUSION ED Provider: Billy Mayfield Discharge Problem: Confusion, Cough, Acute UTI Patient Disposition: Admitted As Inpatient Discharge Instructions Interventions: ED Discharge Assessment Last Done: 11/16/22 20:50
[2022-11-16 14:20] LABS: Basophils # (auto) 0.02 K/uL (0-0.2); Basophils % (auto) 0.2 %; Eosinophils % (auto) 0.9 %; Hematocrit (blood only) 33.3 % (37.0-47.0); Hemoglobin 10.6 g/dl (12.0-16.0); Immature Granulocytes # (auto) 0.03 K/uL (0.01-0.20); Immature Granulocytes % (auto) 0.3 %; Lymphocytes # (auto) 1.67 K/uL (1.2-3.4); Mean Corpuscular Hemoglobin 28.8 pg (25.0-34.0); Mean Corpuscular Hgb Conc 31.8 g/dL (32.0-36.0); Mean Corpuscular Volume 90.5 fL (80.0-100.0); Mean Platelet Volume 9.5 fL (9.4-12.4); Monocytes # (auto) 0.94 K/uL (0.11-0.59); Monocytes % (auto) 8.5 %; Neutrophils # (auto) 8.34 K/uL (1.40-6.50); Neutrophils % (auto) 75.1 %; Platelet Count 289 K/uL (130-400); RDW Coefficient of Variation 15.4 % (11.5-14.5); RDW Standard Deviation 51.3 fL (36.4-46.3); Red Blood Count 3.68 M/uL (4.20-5.40)
[2022-11-16 14:37] LABS: Alanine Aminotransferase 4 U/L (7-52); Albumin Globulin Ratio 1.5 (0.9-2); Albumin Level 3.7 gm/dl (3.4-5.0); Alkaline Phosphatase 59 U/L (34-104); Anion Gap 10 (3-11); Aspartate Aminotransferase 13 U/L (13-39); BUN Creatinine Ratio 22.7 (10-20); Bilirubin,Total 0.6 mg/dl (0.2-1.0); Blood Urea Nitrogen 22 mg/dl (6-23); Calcium 9.6 mg/dl (8.6-10.3); Carbon Dioxide 26 mmol/L (21-32); Chloride 104 mmol/L (98-107); Est GFR (African American) 63.5 ml/min; Est GFR (Non-African American) 54.8 ml/min; Globulin 2.4 gm/dl (2.5-4.0); Glucose 96 mg/dl (70-99(Fasting)); Magnesium 1.9 mg/dl (1.7-2.4); Potassium 4.2 mmol/L (3.5-5.1); Sodium 140 mmol/L (136-145); Total Protein 6.1 gm/dl (6.0-8.3)
--- NOTE | 2022-11-16 14:39 | XRay Report ---
XR chest 1V portable CLINICAL HISTORY: Shortness of breath and cough. COMPARISON STUDY: Chest CT March 29, 2022. Chest radiograph October 13, 2022. FINDINGS: Lung volumes are normal. Minimal left basilar opacity favors atelectasis. There is no pneum othorax or pleural effusion. Cardiac size is stable. Mediastinal contours are normal. There is no isidoro dence for pulmonary edema. IMPRESSION: No acute cardiopulmonary findings. ACT 112: Negative or not required by law. Electronically signed by: Rj Andrew M.D. 11/16/2022 2:38 PM
[2022-11-16 14:42] LABS: Troponin I High Sensitivity 2.6 pg/ml (0-14)
[2022-11-16 14:51] LABS: Thyroid Stimulating Hormone 0.157 uIu/ml (0.300-4.500)
[2022-11-16] MEDS ORDERED: IOVERSOL 350 MG 125mL Prefilled Syringe IV ONE (15:19)
--- NOTE | 2022-11-16 15:39 | CT Scan Report ---
CT OF THE HEAD WITHOUT CONTRAST CLINICAL HISTORY: Neuro deficit. Confusion. COMPARISON STUDY: MRI of the brain September 22, 2022. Head CT October 13, 2022. TECHNIQUE: Helical axial images of the head were obtained without IV contrast. Automated exposure con trol was utilized for the study. A dose lowering technique was utilized adhering to the principles o f ALARA. FINDINGS: No acute intracranial hemorrhage, midline shift or mass effect is present. The ventricular system is stable. Encephalomalacia within the left frontal lobe is unchanged. A right frontal scalp c ontusion has nearly completely resolved. The basal cisterns are patent. No extra-axial collections ar e present. There are no findings to suggest acute dural sinus thrombosis or acute territorial infarct . No significant calvarial abnormalities are present. Visualized portions of the sinuses and mastoid air cells are clear. IMPRESSION: No acute intracranial findings. ACT 112: Negative or not required by law. Electronically signed by: Rj Andrew M.D. 11/16/2022 3:38 PM
--- NOTE | 2022-11-16 15:44 | CT Scan Report ---
CT ANGIOGRAPHY OF THE NECK WITH CONTRAST CLINICAL HISTORY: neuro deficit COMPARISON STUDY: CTA of the neck September 22, 2022. Carotid ultrasound September 08, 2022. Technique: CT angiography of the carotid and vertebral arteries was obtained using Optiray and 3D rec onstruction on an independent workstation. NASCET criteria was utilized. Automated exposure control was utilized for the study. A dose lowering technique was utilized adhering to the principles of ALA RA. CT DOSE: 1001.70 mGy.cm Findings: Visualized portions of the lung apices are unremarkable. There is no cervical spine fractur e. Left lobe thyroid goiter is noted. There is moderate plaque within the proximal right internal car otid artery without significant stenosis. There is mild plaque within the proximal left internal baltazar tid artery without stenosis. The bilateral vertebral arteries are patent. Origins of the vertebral ar teries are suboptimally assessed on this exam. There is no dissection or aneurysm within the neck. CT A of the head will be reported separately. IMPRESSION: Mild to moderate plaque within the proximal bilateral cervical internal carotid arteries without stenosis. ACT 112: Negative or not required by law. Electronically signed by: Rj Andrew M.D. 11/16/2022 3:42 PM
[2022-11-16 15:46] LABS: T4 Free Thyroxine 0.93 ng/dl (0.61-1.60)
--- NOTE | 2022-11-16 15:49 | CT Scan Report ---
CTA ANGIOGRAPHY OF THE HEAD CLINICAL HISTORY: neuro deficit COMPARISON STUDY: CTA of the head September 22, 2022. TECHNIQUE: Helical axial images of the head were obtained following uneventful intravenous administr ation of 118 cc of Optiray. Sagittal and coronal reconstructions were viewed as well as maximal inten sity projections on an independent 3-D workstation. Automated exposure control was utilized for the study. A dose lowering technique was utilized adhering to the principles of ALARA. FINDINGS: No acute intracranial hemorrhage was identified on the head CT which will be reported separ ately. Left frontal encephalomalacia is unchanged. There is extensive plaque within the right caverno us carotid with severe stenosis. . The right A1 segment is diminutive. There is extensive plaque with in the left cavernous carotid with without significant stenosis. persistence of the left retail account specialist ior cerebral artery. There is moderate to severe stenosis of the intracranial portion of the right ve rtebral artery. There is moderate stenosis of the intracranial portion of the left vertebral. Basilar artery is patent. Posterior cerebral arteries are patent. There is no central vessel occlusion. Ther e is no intracranial aneurysm. IMPRESSION: 1. No central vessel occlusion. No intracranial aneurysm. 2. 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 ACT 112: Negative or not required by law. Electronically signed by: Rj Andrew M.D. 11/16/2022 3:47 PM
[2022-11-16 16:20] LABS: Adenovirus PCR Not Detected (NotDetected); Bordetella parapertussis PCR Not Detected (NotDetected); Bordetella pertussis PCR Not Detected (NotDetected); Chlamydia pneumoniae PCR Not Detected (NotDetected); Coronavirus 229E PCR Not Detected (NotDetected); Coronavirus CoV-2 (COVID19)PCR Not Detected (NotDetected); Coronavirus HKU1 PCR Not Detected (NotDetected); Coronavirus NL63 PCR Not Detected (NotDetected); Coronavirus OC43PCR Not Detected (NotDetected); Human Metapneumovirus PCR Not Detected (NotDetected); Influenza A PCR Not Detected (NotDetected); Influenza B PCR Not Detected (NotDetected); Mycoplasma pneumoniae PCR Not Detected (NotDetected); Parainfluenza Virus 1 PCR Not Detected (NotDetected); Parainfluenza Virus 2 PCR Not Detected (NotDetected); Parainfluenza Virus 3 PCR Not Detected (NotDetected); Parainfluenza Virus 4 PCR Not Detected (NotDetected); Respiratory Syncytial VirusPCR Not Detected (NotDetected); Rhinovirus/Enterovirus PCR Not Detected (NotDetected)
[2022-11-16 16:21] LABS: Appearance Urine Clear (Clear); Bacteria Urine Automated Negative (Negative); Bilirubin Urine Negative (Negative); Blood Urine Negative (Negative); Cast Urine Automated 0 /lpf (0-5); Color Urine Yellow; Epithelial Cell Urine Auto 0-5 /lpf (0-5); Glucose Urine UA Negative (Negative); Ketones Urine Negative (Negative); Leukocyte Esterase Urine 2+ (Negative); Nitrite Urine Negative (Negative); Protein Urine 1+ (Negative); Specific Gravity Urine > 1.045 (1.000-1.030); Urobilinogen Urine Negative (Negative); WBC Urine Automated >30 /hpf (0-5); pH Urine 5.5 (4.5-7.5)
[2022-11-16] MEDS ORDERED: cefTRIAXone SODIUM 2,000 MG/70 ML BAG IV STA (16:53)
[2022-11-16] MEDS ORDERED: VANCOMYCIN CONSULT ACTIVE PRN (16:53)
[2022-11-16] MEDS ORDERED: VANCOMYCIN HCL 1,500 MG in SODIUM CHLORIDE 0.9% 500 ML IV ONE (16:53)
--- NOTE | 2022-11-16 17:56 | History & Physical Report ---
Date of Service November 16, 2022 Assessment & Plan (1) Confusion: Plan: Pt presents d/t confusion - known hx of Parkinson's , hx of CVA CT head - No acute intracranial findings. CTA head - 1. No central vessel occlusion. No intracranial aneurysm. 2. 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 CTA neck - Mild to moderate plaque within the proximal bilateral cervical internal carotid arteries without stenosis. Abnormal CTA head, hx of CVA -> will obtain brain MRI, depending on findings will further discuss w/ neurology Cont. plavix, rosuvastatin Pt presented at PCP office d/t cough yesterday CXR today - unremarkable - personally reviewed WBC 11K - mildly elev., will obtain procalcitonin - will start pt on mucinex Pt has hx of COPD - cont. home inhalers In the ED , UA obtained - and abnormal - recent hx of UTI w/ Enterococcus faecalis + urinary frequency - started on vancomycin by ED for poss. Enterococcus - will cont. for now, and will await cultures - started on ceftriaxone in ED - will continue for now, and will await cultures Parkinson's - -cont. home carbidopa-levodopa CAD s/p stent HLD HTN - cont. home meds DM2 - hold home oral meds -SSI DVT ppx lovenox Code: full History of Present Illness Chief Complaint: confusion Primary Care Provider: Jag Stover MD Patient is an 82-year-old female with history of asthma, COPD, Parkinson's, DM 2, CAD, history of CVA, who presents due to confusion. Patient is currently laying in bed in ED room, in no acute distress, history is provided mostly by her sister present at the bedside. Patient was somewhat "confused" and "not functioning as her usual" yesterday. She was having more cough with sputum production, and was seen by her PCP yesterday. On physical exam, she seemed to be normal and no medication changes were needed at that time. She has history of COPD and chronic cough per sister at the bedside, however she felt that she was having a little more sputum production. Overnight she has a person, who helps her to the bathroom and around 3 in the morning they reported she was acting normal. Then again at 7 in the morning she was sitting up in the living room and acting normal. However soon after she required to go to the bathroom more frequently. They also report that she had a loose stool yesterday. She had a bath around 1 PM and since then she was very tired, more confused and they were not even able to sit her up. Sister tells me that patient could tell her name but otherwise could not answer questions very appropriately. Therefore they brought her to the emergency room by ambulance. In the ED, CT head obtained CTA head and neck obtained. Chest x-ray obtained and unremarkable. UA obtained and somewhat abnormal, due to history of UTI in August with Enterococcus faecalis, ED started patient on vancomycin, as well as ceftriaxone. Currently patient is awake and alert and able to answer simple questions appropriately. She currently has no complaints. Denies any headache fevers chills, denies chest pain or shortness of breath. She does have a cough. Denies abdominal pain. Denies any weakness in her extremities. Allergies Allergy/AdvReac Type Severity Reaction Status Date / Time fluconazole Allergy Severe hives,rash,respiratory Verified 11/11/22 13:04 difficulty fluticasone Allergy Severe SHORT OF Verified 11/11/22 13:04 BREATH/RASH hydrochlorothiazide Allergy Severe Rash Verified 11/11/22 13:04 triamterene Allergy Severe Rash Verified 11/11/22 13:04 erythromycin base Allergy Intermediate RASH/NAUSEA Verified 11/11/22 13:04 /VOMITING isosorbide Allergy Intermediate Headache Verified 11/11/22 13:04 NSAIDS (Non-Steroidal Allergy Intermediate hives,rash Verified 11/11/22 13:04 Anti-Inflamma amifostine Allergy Unknown Unknown Verified 11/11/22 13:04 lisinopril Allergy Unknown Unknown Verified 11/11/22 13:04 Penicillins Allergy Unknown Unknown Verified 11/11/22 13:04 ethyl alcohol AdvReac Unknown Unknown Verified 11/11/22 13:04 Home Medications Medication Instructions Recorded Confirmed Type albuterol sulfate 90 mcg/actuation 2 puff inhalation Q4H PRN 02/06/22 11/16/22 History aerosol inhaler Shortness Of Breath Or Wheezing carbidopa 25 mg-levodopa 100 mg 1.5 tab PO QID 02/06/22 11/16/22 History tablet duloxetine 30 mg capsule,delayed 30 mg PO BID 02/06/22 11/16/22 History release glimepiride 1 mg tablet 0 mg PO DAILY 02/06/22 11/16/22 History losartan 25 mg tablet 25 mg PO QAM 02/06/22 11/16/22 History metformin 1,000 mg tablet 1,000 mg PO BIDM 02/06/22 11/16/22 History rivastigmine 9.5 mg/24 hour 1 patch topical QAM 02/06/22 11/16/22 History transdermal patch umeclidinium 62.5 mcg/actuation 1 inh inhalation QAM 02/06/22 11/16/22 History blister powder for inhalation (Incruse Ellipta) mirabegron 50 mg tablet,extended 50 mg PO QAM 07/19/22 11/16/22 History release 24 hr (Myrbetriq) sitagliptin phosphate 100 mg 100 mg PO QAM 07/19/22 11/16/22 History tablet (Januvia) clopidogrel 75 mg tablet 75 mg PO QAM #30 tabs 09/12/22 11/16/22 Rx acetaminophen 325 mg tablet 650 mg PO Q6H PRN Pain 09/22/22 11/11/22 History (Tylenol) magnesium hydroxide 400 mg/5 mL 30 ml PO DAILY PRN Constipation 09/22/22 11/11/22 History oral suspension (Milk of Magnesia) pyridoxine (vitamin B6) 50 mg 50 mg PO QAM 09/22/22 11/16/22 History tablet budesonide-formoterol HFA 160 2 puff inhalation BID 10/13/22 11/16/22 History mcg-4.5 mcg/actuation aerosol inhaler rosuvastatin 5 mg tablet 5 mg PO DAILY 10/13/22 11/16/22 History bisoprolol 2.5 1 tab PO DAILY 11/16/22 11/16/22 History mg-hydrochlorothiazide 6.25 mg tablet ipratropium 0.5 mg-albuterol 3 mg 3 ml inhalation TID 11/16/22 11/16/22 History (2.5 mg base)/3 mL nebulization soln mupirocin 2 % topical ointment 0 applic topical DAILY 11/16/22 11/16/22 History nystatin 100,000 unit/gram topical 0 applic EXT BID 11/16/22 11/16/22 History powder (Nystop) Past Med/Surg History Medical History Anxiety Asthma CAD (coronary artery disease) COPD (chronic obstructive pulmonary disease) COVID-19 Delirium Dementia Diabetes mellitus, type II Generalized weakness GERD (gastroesophageal reflux disease) History of TIA (transient ischemic attack) Hyperlipidemia Hypertension Multiple fractures of ribs of left side Parkinson's disease Transient confusion Surgical History Hx of appendectomy S/P cholecystectomy Stented coronary artery Family History Other Diabetes Heart disease Hypertension Social History Smoking Status: Unknown if ever smoked Tobacco Type: Cigarettes Cigarettes Per Day: 1 pack/day; Second Hand Exposure: No; Do You Dip or Chew Tobacco: No; Hx Alcohol Use: No Hx Substance Use: No Preferred Language: Korean Communication Ability: Effective Communication Ability Comment: memory loss, confusion at times Visual Impairment: Limited Hearing Ability: Normal Fuller Brush Worker Required: No Beliefs That Will Affect Care: None marital status: Single Current Living Situation: Family and Rehab Current Living Situation Comment: Lives w/ sister, at Rehab facility at this time current occupational status: retired 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[employer], [place] How many Children do You have: 0 Feels Safe at Home: Yes Diet: regular caffeine: Yes (rare) during the past year weight has: remained stable Assistive Devices: Walker Review of Systems Review of Systems: All systems reviewed & are unremarkable except as noted in Subjective Physical Exam Constitutional: WD/WN, vitals as above (elderly F in NAD) Eyes: PERRL, conjunctivae normal, anicteric sclerae ENMT: external ear and nose normal, oropharynx normal Neck: trachea midline, no thyromegaly Respiratory: normal respiratory effort and + cough (+ rhonchi, no wheezing) Cardiovascular: RRR, no murmur, no edema Chest (Breasts): Chest: normal inspection of chest Gastrointestinal (Abdomen): normal bowel sounds, soft, nontender, no hepatosplenomegaly Musculoskeletal: no cyanosis or clubbing, extremities motor strength 5/5 Skin: no rashes, warm and dry Neurologic: PERRL, EOMI, accommodation nl, no face palsy, no dysarthria Results & Data Results & Data Vital Signs (Past 12 Hours) Vital Signs Temp Pulse Pulse Resp BP BP Pulse Ox 11/16/22 16:22 80 20 123/57 L 93 11/16/22 15:48 74 11/16/22 14:06 11/16/22 13:55 11/16/22 13:55 36.6 C 74 18 133/88 95 O2 Del Method 11/16/22 16:22 Room Air 11/16/22 15:48 11/16/22 14:06 Room Air 11/16/22 13:55 Room Air 11/16/22 13:55 Room Air Laboratory Results 11/16/22 11/16/22 11/16/22 Range/Units 15:54 15:07 14:00 WBC (4.8-10.8) K/ul RBC (4.20-5.40) M/uL Hgb (12.0-16.0) g/dl Hct (37.0-47.0) % MCV (80.0-100.0) fL MCH (25.0-34.0) pg MCHC (32.0-36.0) g/dL RDW Std Deviation (36.4-46.3) fL RDW Coeff of Jayden (11.5-14.5) % Plt Count (130-400) K/uL MPV (9.4-12.4) fL Immature Gran % (Auto) % Neut % (Auto) % Lymph % (Auto) % Archuleta % (Auto) % Eos % (Auto) % Baso % (Auto) % Neut # (Auto) (1.40-6.50) K/uL Lymph # (Auto) (1.2-3.4) K/uL Archuleta # (Auto) (0.11-0.59) K/uL Eos # (Auto) (0-0.50) K/uL Baso # (Auto) (0-0.2) K/uL Immature Gran # (Auto) (0.01-0.20) K/uL Sodium (136-145) mmol/L Potassium (3.5-5.1) mmol/L Chloride (98-107) mmol/L Carbon Dioxide (21-32) mmol/L Anion Gap (3-11) BUN (6-23) mg/dl Creatinine (0.6-1.2) mg/dl Est Cr Clr Drug Dosing Est GFR ( Amer) ml/min Est GFR (Non-Af Amer) ml/min BUN/Creatinine Ratio (10-20) Glucose (70-99(Fasting)) mg/dl Calcium (8.6-10.3) mg/dl Magnesium (1.7-2.4) mg/dl Total Bilirubin (0.2-1.0) mg/dl AST (13-39) U/L ALT (7-52) U/L Alkaline Phosphatase (34-104) U/L Troponin I High Sens (0-14) pg/ml Total Protein (6.0-8.3) gm/dl Albumin (3.4-5.0) gm/dl Globulin (2.5-4.0) gm/dl Albumin/Globulin Ratio (0.9-2) TSH 0.157 L (0.300-4.500) uIu/ml Free T4 0.93 (0.61-1.60) ng/dl Urine Color Yellow Urine Appearance Clear (Clear) Urine pH 5.5 (4.5-7.5) Ur Specific Julian > 1.045 H (1.000-1.030) Urine Protein 1+ H (Negative) Urine Glucose (UA) Negative (Negative) Urine Ketones Negative (Negative) Urine Blood Negative (Negative) Urine Nitrite Negative (Negative) Urine Bilirubin Negative (Negative) Urine Urobilinogen Negative (Negative) Ur Leukocyte Esterase 2+ H (Negative) Urine WBC (Auto) >30 H (0-5) /hpf Urine RBC (Auto) 5-10 H (0-4) /hpf U Hyaline Cast (Auto) 0 (0-5) /lpf U Epithel Cells (Auto) 0-5 (0-5) /lpf Urine Bacteria (Auto) Negative (Negative) Adenovirus (PCR) Not Detected (NotDetected) B. pertussis DNA (PCR) Not Detected (NotDetected) B.parapertussis DNA PCR Not Detected (NotDetected) C. pneumoniae DNA (PCR) Not Detected (NotDetected) Coronavirus OC43 (PCR) Not Detected (NotDetected) Coronavirus HKU1 (PCR) Not Detected (NotDetected) Coronavirus 229E (PCR) Not Detected (NotDetected) SARS-CoV-2 (PCR) Not Detected (NotDetected) Coronavirus NL63 (PCR) Not Detected (NotDetected) Human Metapneumovir PCR Not Detected (NotDetected) Influenza Type A (PCR) Not Detected (NotDetected) Influenza Type B (PCR) Not Detected (NotDetected) M. pneumoniae (PCR) Not Detected (NotDetected) Parainfluenza 1 (PCR) Not Detected (NotDetected) Parainfluenza 2 (PCR) Not Detected (NotDetected) Parainfluenza 3 (PCR) Not Detected (NotDetected) Parainfluenza 4 (PCR) Not Detected (NotDetected) RSV (PCR) Not Detected (NotDetected) Entero/Rhino (PCR) Not Detected (NotDetected) 11/16/22 11/16/22 Range/Units 14:00 14:00 WBC 11.10 H (4.8-10.8) K/ul RBC 3.68 L (4.20-5.40) M/uL Hgb 10.6 L (12.0-16.0) g/dl Hct 33.3 L (37.0-47.0) % MCV 90.5 (80.0-100.0) fL MCH 28.8 (25.0-34.0) pg MCHC 31.8 L (32.0-36.0) g/dL RDW Std Deviation 51.3 H (36.4-46.3) fL RDW Coeff of Jayden 15.4 H (11.5-14.5) % Plt Count 289 (130-400) K/uL MPV 9.5 (9.4-12.4) fL Immature Gran % (Auto) 0.3 % Neut % (Auto) 75.1 % Lymph % (Auto) 15.0 % Archuleta % (Auto) 8.5 % Eos % (Auto) 0.9 % Baso % (Auto) 0.2 % Neut # (Auto) 8.34 H (1.40-6.50) K/uL Lymph # (Auto) 1.67 (1.2-3.4) K/uL Archuleta # (Auto) 0.94 H (0.11-0.59) K/uL Eos # (Auto) 0.10 (0-0.50) K/uL Baso # (Auto) 0.02 (0-0.2) K/uL Immature Gran # (Auto) 0.03 (0.01-0.20) K/uL Sodium 140 (136-145) mmol/L Potassium 4.2 (3.5-5.1) mmol/L Chloride 104 (98-107) mmol/L Carbon Dioxide 26 (21-32) mmol/L Anion Gap 10 (3-11) BUN 22 (6-23) mg/dl Creatinine 0.97 (0.6-1.2) mg/dl Est Cr Clr Drug Dosing Not Reportable Est GFR ( Amer) 63.5 ml/min Est GFR (Non-Af Amer) 54.8 ml/min BUN/Creatinine Ratio 22.7 H (10-20) Glucose 96 (70-99(Fasting)) mg/dl Calcium 9.6 (8.6-10.3) mg/dl Magnesium 1.9 (1.7-2.4) mg/dl Total Bilirubin 0.6 (0.2-1.0) mg/dl AST 13 (13-39) U/L ALT 4 L (7-52) U/L Alkaline Phosphatase 59 (34-104) U/L Troponin I High Sens 2.6 (0-14) pg/ml Total Protein 6.1 (6.0-8.3) gm/dl Albumin 3.7 (3.4-5.0) gm/dl Globulin 2.4 L (2.5-4.0) gm/dl Albumin/Globulin Ratio 1.5 (0.9-2) TSH (0.300-4.500) uIu/ml Free T4 (0.61-1.60) ng/dl Urine Color Urine Appearance (Clear) Urine pH (4.5-7.5) Ur Specific Julian (1.000-1.030) Urine Protein (Negative) Urine Glucose (UA) (Negative) Urine Ketones (Negative) Urine Blood (Negative) Urine Nitrite (Negative) Urine Bilirubin (Negative) Urine Urobilinogen (Negative) Ur Leukocyte Esterase (Negative) Urine WBC (Auto) (0-5) /hpf Urine RBC (Auto) (0-4) /hpf U Hyaline Cast (Auto) (0-5) /lpf U Epithel Cells (Auto) (0-5) /lpf Urine Bacteria (Auto) (Negative) Adenovirus (PCR) (NotDetected) B. pertussis DNA (PCR) (NotDetected) B.parapertussis DNA PCR (NotDetected) C. pneumoniae DNA (PCR) (NotDetected) Coronavirus OC43 (PCR) (NotDetected) Coronavirus HKU1 (PCR) (NotDetected) Coronavirus 229E (PCR) (NotDetected) SARS-CoV-2 (PCR) (NotDetected) Coronavirus NL63 (PCR) (NotDetected) Human Metapneumovir PCR (NotDetected) Influenza Type A (PCR) (NotDetected) Influenza Type B (PCR) (NotDetected) M. pneumoniae (PCR) (NotDetected) Parainfluenza 1 (PCR) (NotDetected) Parainfluenza 2 (PCR) (NotDetected) Parainfluenza 3 (PCR) (NotDetected) Parainfluenza 4 (PCR) (NotDetected) RSV (PCR) (NotDetected) Entero/Rhino (PCR) (NotDetected)
[2022-11-16] MEDS ORDERED: ACETAMINOPHEN 325 MG TAB PO PRN (18:36)
--- NOTE | 2022-11-16 19:17 | Magnetic Resonance Report ---
MRI OF THE BRAIN WITHOUT CONTRAST CLINICAL HISTORY: Altered mental status. Evaluate for CVA COMPARISON STUDY: MRI of the brain September 22, [address] and CTA of the head performed earlier topolina vizcarra. TECHNIQUE: Utilizing a 1.5 Chrissie magnet and dedicated coil, multiplanar, multiecho imaging of the bra in was performed without IV contrast. FINDINGS: The diffusion-weighted sequence is moderately compromised by artifact. However, there is no convincing evidence for acute infarct on this exam. No acute intracranial hemorrhage, midline shift or mass effect is present. Ventricular system is stable. Basal cisterns are patent. There are no extr a-axial collections. There is moderate atrophy. Old left frontal lobe infarct is unchanged. White mat ter T2 hyperintense foci are similar to MRI of September 22, 2022 and suggest small vessel disease. No intr acranial masses are identified on this unenhanced exam. IMPRESSION: 1. Diffusion-weighted sequence moderately compromised by artifact. However, no definite acute infarct . 2. No significant change in appearance of the brain since MRI of September 22, 2022. 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 ACT 112: Negative or not required by law. Electronically signed by: Rj Andrew M.D. 11/16/2022 7:14 PM
[2022-11-16] MEDS ORDERED: GLUCOSE 10 TAB/TUBE PO PRN (19:18)
[2022-11-16] MEDS ORDERED: GLUCOSE 40% GEL 15 GM TUBE PO PRN (19:18)
[2022-11-16] MEDS ORDERED: CARBOHYDRATES FOR HYPOGLYCEMIA PO PRN (19:18)
[2022-11-16] MEDS ORDERED: PHARMACY GLYCEMIC MGMT CONSULT PRN (19:18)
[2022-11-16] MEDS ORDERED: DEXTROSE 50% 50 ML SYRINGE IV PRN (19:18)
[2022-11-16] MEDS ORDERED: GLUCAGON FOR INJ 1 MG VIAL SQ PRN (19:18)
[2022-11-16] MEDS ORDERED: Patient's HEIGHT &/or WEIGHT Needed SCH (19:45)
--- NOTE | 2022-11-16 20:21 | Pharmacy Report ---
Pharmacy PK ABX Note - Date of Service November 16, 2022 - Assessment and Plan Assessment 82 year old F receiving VANCOMYCIN/CEFTRIAXONE for treatment of ALTERED MENTAL STATUS/ACUTE UTI. Pertinent microbiologic data includes: , urine culture pending. Day # 1/? of antimicrobial therapy. Plan Vancomycin * Loading dose: 1500 mg IV x 1 * Maintenance dose: 1250 mg IV every 24 hours * Regimen is predicted to achieve target AUC/BAUTISTA of 400-600 mg/L.hr * Random level to be ordered if continued beyond 48 hours Pharmacy will continue to follow and will adjust dose/frequency as necessary. Thank you. Pharmacy has transitioned to AUC monitoring for vancomycin. AUC/BAUTISTA is the preferred PK/PD target and is associated with decreased risk of nephrotoxicity compared to traditional trough targets.
--- NOTE | 2022-11-16 20:28 | Pharmacy Report ---
Pharmacy Glycemic Short Note 2 - Date of Service November 16, 2022 - Glycemic Short BSG Results (Last 24 hours): 11/16/22 11/16/22 14:00 20:16 Glucose 96 POC Glucose 132 H OUTPATIENT ANTIDIABETIC REGIMEN: * metformin 1000mg BIDM, Januvia 100mg QAM, glimeperide 1mg daily * HbA1c 7.0% (06/15/22), repeat pending 11/17/22 ASSESSMENT: * Anni is an 82 YOF presenting for altered mental status, with a history of T2 DM. Pharmacy has been consulted for glycemic management * Patient was started on vancomycin and ceftriaxone for possible infection, no additional stressors at this time. * Will hold outpatient medications and begin Novolog scale with parameters at a weight based stress of 2 * Will add a Lantus scale at bedtime for basal needs based off of a weight based stress of 1-2 (0-6-12), PLAN FOR INPATIENT GLYCEMIC CONTROL: * Hold outpatient oral diabetes medications * Basal insulin * Lantus 0-6-12 units (based off BSG) x1 tonight, Reassess in AM * Bolus insulin * NovoLog per scale ACHS or Q6hrs while NPO * Goal Range: Low 110 mg/dL - High 140 mg/dL * Correction Factor: 30 mg/dL/unit * Nutritional / Prandial insulin per carb ratio of 1 unit per 11 grams CHO consumed
[2022-11-16] MEDS ORDERED: LANTUS PER UNIT CHARGE SC SCH (21:00)
[2022-11-16] MEDS ORDERED: BUDESONIDE/FORMOTEROL FUMARATE 160/4.5 60 PUFFS/INHALER INH SCH (21:19)
[2022-11-16] MEDS ORDERED: ALBUTEROL HFA 8 GM INHALER INH PRN (21:19)
[2022-11-16] MEDS: ALBUT/IPRATROP 3MG/0.5MG NEB 3 ML VIAL INH SCH (21:45)
[2022-11-16] MEDS: CARBIDOPA/LEVODOPA 25/100MG TAB PO SCH (22:43)
[2022-11-16] MEDS: DULoxetine HCL 30 MG CAP PO SCH (22:44)
[2022-11-16] MEDS: INSULIN ASPART PER UNIT CHARGE SC SCH (22:51)
[2022-11-16] MEDS: guaiFENesin 600 MG TABCR PO SCH (23:08)
[2022-11-17 05:48] LABS: Hematocrit (blood only) 31.4 % (37.0-47.0); Mean Corpuscular Hemoglobin 28.7 pg (25.0-34.0); Mean Corpuscular Hgb Conc 31.8 g/dL (32.0-36.0); Mean Platelet Volume 9.2 fL (9.4-12.4); Platelet Count 242 K/uL (130-400); RDW Coefficient of Variation 15.4 % (11.5-14.5); RDW Standard Deviation 50.9 fL (36.4-46.3); Red Blood Count 3.49 M/uL (4.20-5.40); White Blood Count 8.91 K/ul (4.8-10.8)
[2022-11-17 06:04] LABS: BUN Creatinine Ratio 21.1 (10-20); Calcium 8.9 mg/dl (8.6-10.3); Creatinine Clr Calc Pharmacy 54.7 ml/min; Est GFR (African American) 85.3 ml/min; Est GFR (Non-African American) 73.6 ml/min; Magnesium 1.9 mg/dl (1.7-2.4); Phosphorus 3.6 mg/dl (2.5-4.9); Potassium 3.9 mmol/L (3.5-5.1)
[2022-11-17] MEDS: VANCOMYCIN HCL 1,250 MG in SODIUM CHLORIDE 0.9% 250 ML IV SCH (06:16)
[2022-11-17] MEDS: ALBUT/IPRATROP 3MG/0.5MG NEB 3 ML VIAL INH SCH ×3 (07:23→19:00)
[2022-11-17] MEDS: guaiFENesin 600 MG TABCR PO SCH ×2 (07:55→20:16)
[2022-11-17] MEDS: ROSUVASTATIN CALCIUM 5 MG TAB PO SCH (07:55)
[2022-11-17] MEDS: DULoxetine HCL 30 MG CAP PO SCH ×2 (07:55→16:35)
[2022-11-17] MEDS: CARBIDOPA/LEVODOPA 25/100MG TAB PO SCH ×4 (07:55→20:15)
[2022-11-17] MEDS: CLOPIDOGREL BISULFATE 75 MG TAB PO SCH (07:55)
[2022-11-17] MEDS: hydroCHLOROthiazide 25 MG TAB PO SCH (07:57)
[2022-11-17] MEDS: BISOPROLOL FUMARATE 5 MG TAB PO SCH (07:57)
[2022-11-17] MEDS: ENOXAPARIN INJ 30 MG/0.3 ML SYR SQ SCH (07:58)
[2022-11-17] MEDS: LOSARTAN POTASSIUM 25 MG TAB PO SCH (07:58)
[2022-11-17] MEDS: PYRIDOXINE HCL 50 MG TAB PO SCH (07:58)
[2022-11-17] MEDS: UMECLIDINIUM BROMIDE 62.5MCG/BLISTER 7 PUFFS/INHALER INH SCH (07:58)
[2022-11-17] MEDS: VIBEGRON 75 MG TAB PO SCH (07:58)
[2022-11-17] MEDS: INSULIN ASPART PER UNIT CHARGE SC SCH ×3 (07:59→17:02)
--- NOTE | 2022-11-17 08:01 | Electrocardiogram Report ---
Test Reason : Blood Pressure : / mmHG Vent. Rate : 072 BPM Atrial Rate : 000 BPM P-R Int : 000 ms QRS Dur : 084 ms QT Int : 376 ms P-R-T Axes : 000 034 042 degrees QTc Int : 411 ms Poor data quality, interpretation may be adversely affected Sinus rhythm Normal ECG When compared with ECG of 13-OCT-2022 14:49, Criteria for Septal infarct are no longer Present Premature ventricular complexes no longer present Nonspecific T wave abnormality no longer present Confirmed by Jag Graff ([id number]) on 11/17/2022 8:01:08 AM Referred By: REFERRED SELF Confirmed By:Jag Graff
[2022-11-17] MEDS ORDERED: cefTRIAXone SODIUM 2,000 MG in DEXTROSE 5% 50 ML IV SCH (09:00)
--- NOTE | 2022-11-17 15:04 | XRay Report ---
XR chest 1V portable CLINICAL HISTORY: Tachypnea. COMPARISON STUDY: Chest radiograph November 16, 2022. Chest CT March 29, 2022. FINDINGS: Lung volumes are normal. Lungs are clear. There is no pneumothorax or pleural effusion. Car diac size is stable. Mediastinal contours are normal. There is no evidence for pulmonary edema. IMPRESSION: No acute cardiopulmonary findings. ACT 112: Negative or not required by law. Electronically signed by: Rj Andrew M.D. 11/17/2022 3:03 PM
--- NOTE | 2022-11-17 18:06 | Hospitalist Progress Note ---
Date of Service November 17, 2022 Assessment & Plan (1) Confusion: Plan: Pt presents d/t confusion - known hx of Parkinson's , hx of CVA CT head - No acute intracranial findings. CTA head - 1. No central vessel occlusion. No intracranial aneurysm. 2. 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 CTA neck - Mild to moderate plaque within the proximal bilateral cervical internal carotid arteries without stenosis. Abnormal CTA head, hx of CVA -> obtained brain MRI - 1. Diffusion-weighted sequence moderately compromised by artifact. However, no definite acute infarct. 2. No significant change in appearance of the brain since MRI of September 22, 2022. 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 Cont. plavix, rosuvastatin Pt presented at PCP office d/t cough day prior to admission CXR in ER - unremarkable - personally reviewed WBC 11K - mildly elev., obtained procalcitonin - 0.10 - started pt on mucinex Pt has hx of COPD - cont. home inhalers In the ED , UA obtained - and abnormal - recent hx of UTI w/ Enterococcus faecalis + urinary frequency - started on vancomycin by ED for poss. Enterococcus - will cont. for now, and will await cultures - started on ceftriaxone in ED - will continue for now, and will await cultures Parkinson's - -cont. home carbidopa-levodopa CAD s/p stent HLD HTN - cont. home meds DM2 - hold home oral meds -SSI DVT ppx lovenox Code: full Admission and Anticipated Discharge Date Admission Date: November 16, 2022 Subjective Pt seen in follow up of confusion , UTI, in the setting of Parkinson's, and COPD Patient seen today, in the presence of her sister in the room, patient more anxious. Per RN and sister she was doing well earlier today, then became more anxious and tachypneic when sister came to the hospital. Breathing treatment was done at the bedside and stat chest x-ray obtained, chest x-ray unremarkable and reviewed at the bedside. Patient's other sister was able to calm the patient down. Patient herself not stating any complaints. However also somewhat confused and not knowing that she is in the hospital. Review of Systems Review of Systems: Unobtainable due to cognitive status Physical Exam Physical Exam: Constitutional:I WD/WN, elderly F i n NAD Eyes: EOMI, conjunctivae normal, anicteric sclerae ENMT: external ear and n ose normal, oropha rynx normal Neck: supple Respiratory: normal respiratory effort and + coug h (+ rhonchi, no w heezing) Cardiovascular:I RRR, no murmur, no edema Chest (Breasts): Chest: normal insp ection of chest Gastrointestinal ( Abdomen): normal bowel sound s, soft, nontender Musculoskeletal: moves extremities Skin: no rashes, warm an d dry Neurologic: Awake, but does no t answer appropria tely, EOMI, no fac e palsy, no dysart hria, moves extrem ities Results & Data Results & Data Vital Signs (Past 12 Hours) Vital Signs Temp Pulse Pulse Resp BP Pulse Ox O2 Del Method 11/17/22 17:35 74 11/17/22 17:30 36.9 C 79 18 178/86 H 93 Room Air 11/17/22 14:09 73 20 93 Room Air 11/17/22 12:18 36.6 C 74 19 184/93 H 96 Room Air 11/17/22 11:59 67 11/17/22 07:30 Room Air 11/17/22 08:52 36.8 C 79 18 168/75 H 92 Room Air 11/17/22 07:23 72 18 93 Room Air Laboratory Results 11/17/22 11/17/22 11/17/22 Range/Units Unknown 17:03 11:57 WBC (4.8-10.8) K/ul RBC (4.20-5.40) M/uL Hgb (12.0-16.0) g/dl Hct (37.0-47.0) % MCV (80.0-100.0) fL MCH (25.0-34.0) pg MCHC (32.0-36.0) g/dL RDW Std Deviation (36.4-46.3) fL RDW Coeff of Jayden (11.5-14.5) % Plt Count (130-400) K/uL MPV (9.4-12.4) fL Sodium (136-145) mmol/L Potassium (3.5-5.1) mmol/L Chloride (98-107) mmol/L Carbon Dioxide (21-32) mmol/L Anion Gap (3-11) BUN (6-23) mg/dl Creatinine (0.6-1.2) mg/dl Est Cr Clr Drug Dosing ml/min Est GFR ( Amer) ml/min Est GFR (Non-Af Amer) ml/min BUN/Creatinine Ratio (10-20) Glucose (70-99(Fasting)) mg/dl POC Glucose 120 H 116 H (70-99) mg/dl Estimat Average Glucose Hemoglobin A1c Calcium (8.6-10.3) mg/dl Phosphorus (2.5-4.9) mg/dl Magnesium (1.7-2.4) mg/dl Procalcitonin (0-0.5) ng/ml Nasal Screen MRSA (PCR) Negative (Negative) 11/17/22 11/17/22 11/17/22 Range/Units 07:42 05:26 05:26 WBC (4.8-10.8) K/ul RBC (4.20-5.40) M/uL Hgb (12.0-16.0) g/dl Hct (37.0-47.0) % MCV (80.0-100.0) fL MCH (25.0-34.0) pg MCHC (32.0-36.0) g/dL RDW Std Deviation (36.4-46.3) fL RDW Coeff of Jayden (11.5-14.5) % Plt Count (130-400) K/uL MPV (9.4-12.4) fL Sodium 140 (136-145) mmol/L Potassium 3.9 (3.5-5.1) mmol/L Chloride 107 (98-107) mmol/L Carbon Dioxide 26 (21-32) mmol/L Anion Gap 7 (3-11) BUN 16 (6-23) mg/dl Creatinine 0.76 (0.6-1.2) mg/dl Est Cr Clr Drug Dosing 54.7 ml/min Est GFR ( Amer) 85.3 ml/min Est GFR (Non-Af Amer) 73.6 ml/min BUN/Creatinine Ratio 21.1 H (10-20) Glucose 96 (70-99(Fasting)) mg/dl POC Glucose 117 H (70-99) mg/dl Estimat Average Glucose Pending Hemoglobin A1c Pending Calcium 8.9 (8.6-10.3) mg/dl Phosphorus 3.6 (2.5-4.9) mg/dl Magnesium 1.9 (1.7-2.4) mg/dl Procalcitonin (0-0.5) ng/ml Nasal Screen MRSA (PCR) (Negative) 11/17/22 11/16/22 11/16/22 Range/Units 05:26 22:39 20:16 WBC 8.91 (4.8-10.8) K/ul RBC 3.49 L (4.20-5.40) M/uL Hgb 10.0 L (12.0-16.0) g/dl Hct 31.4 L (37.0-47.0) % MCV 90.0 (80.0-100.0) fL MCH 28.7 (25.0-34.0) pg MCHC 31.8 L (32.0-36.0) g/dL RDW Std Deviation 50.9 H (36.4-46.3) fL RDW Coeff of Jayden 15.4 H (11.5-14.5) % Plt Count 242 (130-400) K/uL MPV 9.2 L (9.4-12.4) fL Sodium (136-145) mmol/L Potassium (3.5-5.1) mmol/L Chloride (98-107) mmol/L Carbon Dioxide (21-32) mmol/L Anion Gap (3-11) BUN (6-23) mg/dl Creatinine (0.6-1.2) mg/dl Est Cr Clr Drug Dosing ml/min Est GFR ( Amer) ml/min Est GFR (Non-Af Amer) ml/min BUN/Creatinine Ratio (10-20) Glucose (70-99(Fasting)) mg/dl POC Glucose 146 H 132 H (70-99) mg/dl Estimat Average Glucose Hemoglobin A1c Calcium (8.6-10.3) mg/dl Phosphorus (2.5-4.9) mg/dl Magnesium (1.7-2.4) mg/dl Procalcitonin (0-0.5) ng/ml Nasal Screen MRSA (PCR) (Negative) 11/16/22 Range/Units 14:00 WBC (4.8-10.8) K/ul RBC (4.20-5.40) M/uL Hgb (12.0-16.0) g/dl Hct (37.0-47.0) % MCV (80.0-100.0) fL MCH (25.0-34.0) pg MCHC (32.0-36.0) g/dL RDW Std Deviation (36.4-46.3) fL RDW Coeff of Jayden (11.5-14.5) % Plt Count (130-400) K/uL MPV (9.4-12.4) fL Sodium (136-145) mmol/L Potassium (3.5-5.1) mmol/L Chloride (98-107) mmol/L Carbon Dioxide (21-32) mmol/L Anion Gap (3-11) BUN (6-23) mg/dl Creatinine (0.6-1.2) mg/dl Est Cr Clr Drug Dosing ml/min Est GFR ( Amer) ml/min Est GFR (Non-Af Amer) ml/min BUN/Creatinine Ratio (10-20) Glucose (70-99(Fasting)) mg/dl POC Glucose (70-99) mg/dl Estimat Average Glucose Hemoglobin A1c Calcium (8.6-10.3) mg/dl Phosphorus (2.5-4.9) mg/dl Magnesium (1.7-2.4) mg/dl Procalcitonin 0.10 (0-0.5) ng/ml Nasal Screen MRSA (PCR) (Negative) Medications Administered Current Inpatient Medications Acetaminophen (Acetaminophen 325 Mg Tab) 650 mg PO Q4H PRN PRN Reason: Pain or Fever Stop: 12/16/22 18:35 Albuterol (Albut/Ipratrop 3mg/0.5mg Neb 3 Ml Vial) 3 ml INH TIDR [facility]; Protocol Stop: 12/16/22 21:59 Last Admin: 11/17/22 14:09 Dose: 3 ml Albuterol (Albuterol Hfa 8 Gm Inhaler) 2 puffs INH Q4H PRN PRN Reason: Shortness Of Breath Or Wheezin Stop: 12/16/22 21:18 Bisoprolol Fumarate (Bisoprolol Fumarate 5 Mg Tab) 2.5 mg PO DAILY [facility] Stop: 12/17/22 08:59 Last Admin: 11/17/22 07:57 Dose: 2.5 mg Carbidopa/Levodopa (Carbidopa/Levodopa 25/100mg Tab) 1.5 tab PO QID@0800,1200,1600,2000 [facility] Stop: 12/16/22 21:29 Last Admin: 11/17/22 16:35 Dose: 1.5 tab Clopidogrel Bisulfate (Clopidogrel Bisulfate 75 Mg Tab) 75 mg PO QAM [facility] Stop: 12/17/22 08:59 Last Admin: 11/17/22 07:55 Dose: 75 mg Dextrose (Dextrose 50% 50 Ml Syringe) 25 - 50 ml IV UD PRN; Protocol PRN Reason: Hypoglycemia Protocol Stop: 12/16/22 19:17 Duloxetine HCl (Duloxetine Hcl 30 Mg Cap) 30 mg PO BID@0830,1630 [facility] Stop: 12/16/22 21:18 Last Admin: 11/17/22 16:35 Dose: 30 mg Enoxaparin Sodium (Enoxaparin Inj 30 Mg/0.3 Ml Syr) 30 mg SQ QAM [facility] Stop: 12/17/22 08:59 Last Admin: 11/17/22 07:58 Dose: 30 mg Glucagon (Glucagon For Inj 1 Mg Vial) 1 mg SQ UD PRN; Protocol PRN Reason: Hypoglycemia Protocol Stop: 12/16/22 19:17 Glucose (Glucose 10 Tab/Tube) 4 - 8 tab PO UD PRN; Protocol PRN Reason: Hypoglycemia Treatment Stop: 12/16/22 19:17 Glucose (Glucose 40% Gel 15 Gm Tube) 15 - 30 gm PO UD PRN; Protocol PRN Reason: Hypoglycemia Protocol Stop: 12/16/22 19:17 Guaifenesin (Guaifenesin 600 Mg Tabcr) 600 mg PO Q12 [facility] Stop: 12/16/22 20:59 Last Admin: 11/17/22 07:55 Dose: 600 mg Hydrochlorothiazide (Hydrochlorothiazide 25 Mg Tab) 6.25 mg PO DAILY [facility] Stop: 12/17/22 08:59 Last Admin: 11/17/22 07:57 Dose: 6.25 mg Vancomycin HCl 1,250 mg/ (Sodium Chloride) 275 mls @ 200 mls/hr IV Q24H [facility] Stop: 11/19/22 05:59 Last Infusion: 11/17/22 08:03 Dose: Infused Ceftriaxone Sodium 2,000 mg/ (Dextrose) 70 mls @ 100 mls/hr IV Q24H [facility]; Protocol Stop: 11/19/22 08:59 Last Infusion: 11/17/22 09:03 Dose: Infused Insulin Aspart (Insulin Aspart Per Unit Charge) 0 units SC Q6 [facility] Stop: 12/17/22 17:59 Last Admin: 11/17/22 17:02 Dose: Not Given Insulin Glargine (Lantus Per Unit Charge) 0 units SC TODAY@2100 [facility]; Protocol Stop: 11/17/22 21:01 Lactobacillus Acidophilus (Advanced Probiotic 1250 Mg Capsule) 2 cap PO DAILY [facility] Stop: 12/17/22 18:14 Losartan Potassium (Losartan Potassium 25 Mg Tab) 25 mg PO QAM [facility] Stop: 12/17/22 08:59 Last Admin: 11/17/22 07:58 Dose: 25 mg Miscellaneous (Carbohydrates For Hypoglycemia ) 15 - 30 gm PO UD PRN PRN Reason: Hypoglycemia Protocol Stop: 12/16/22 19:17 Miscellaneous (Rivastigmine 9.5 Mg/24 Hour Patch*Order Awaiting Action) 1 each N/A QS [facility] Stop: 12/17/22 00:00 Last Admin: 11/17/22 14:55 Dose: Not Given Miscellaneous Information (Vancomycin Consult Active) 1 each N/A UD PRN PRN Reason: Consult Stop: 12/16/22 16:52 Miscellaneous Information (Pharmacy Glycemic Mgmt Consult) 1 each N/A UD PRN PRN Reason: Consult Stop: 12/16/22 19:17 Pyridoxine HCl (Pyridoxine Hcl 50 Mg Tab) 50 mg PO QAM [facility] Stop: 12/17/22 08:59 Last Admin: 11/17/22 07:58 Dose: 50 mg Rosuvastatin Calcium (Rosuvastatin Calcium 5 Mg Tab) 5 mg PO DAILY [facility] Stop: 12/17/22 08:59 Last Admin: 11/17/22 07:55 Dose: 5 mg Umeclidinium [place] (Umeclidinium [place] 62.5mcg/Blister 7 Puffs/Inhaler) 1 puffs INH QAM [facility] Stop: 12/17/22 08:59 Last Admin: 11/17/22 07:58 Dose: 1 puffs Vibegron ([facility] 75 Mg Tab) [facility] Stop: 12/17/22 08:59 Last Admin: 11/17/22 07:58 Dose: 75 mg
[2022-11-17] MEDS: ADVANCED PROBIOTIC 1250 MG CAPSULE PO SCH (20:16)
[2022-11-17] MEDS ORDERED: LANTUS PER UNIT CHARGE SC SCH (21:00)
[2022-11-17] MEDS ORDERED: Nursing to Pharmacy Communication SCH (21:45)
[2022-11-18] MEDS: INSULIN ASPART PER UNIT CHARGE SC SCH ×3 (00:03→12:28)
[2022-11-18] MEDS: VANCOMYCIN HCL 1,250 MG in SODIUM CHLORIDE 0.9% 250 ML IV SCH (05:23)
[2022-11-18 06:56] LABS: Hematocrit (blood only) 31.2 % (37.0-47.0); Hemoglobin 10.1 g/dl (12.0-16.0); Mean Corpuscular Hemoglobin 28.4 pg (25.0-34.0); Mean Corpuscular Hgb Conc 32.4 g/dL (32.0-36.0); Mean Corpuscular Volume 87.6 fL (80.0-100.0); Mean Platelet Volume 9.5 fL (9.4-12.4); Platelet Count 255 K/uL (130-400); RDW Coefficient of Variation 15.2 % (11.5-14.5); RDW Standard Deviation 48.9 fL (36.4-46.3); Red Blood Count 3.56 M/uL (4.20-5.40); White Blood Count 6.68 K/ul (4.8-10.8)
[2022-11-18 06:59] LABS: BUN Creatinine Ratio 16.7 (10-20); Calcium 8.9 mg/dl (8.6-10.3); Creatinine Clr Calc Pharmacy 57.9 ml/min; Est GFR (Non-African American) 78.5 ml/min; Magnesium 1.8 mg/dl (1.7-2.4); Phosphorus 3.1 mg/dl (2.5-4.9); Potassium 3.8 mmol/L (3.5-5.1)
[2022-11-18] MEDS: ALBUT/IPRATROP 3MG/0.5MG NEB 3 ML VIAL INH SCH ×3 (07:16→19:16)
[2022-11-18 07:32] LABS: Estimated Average Glucose 140 mg/dl; Hemoglobin A1C 6.5 % (4.5-5.6)
[2022-11-18] MEDS: CARBIDOPA/LEVODOPA 25/100MG TAB PO SCH ×4 (08:11→20:00)
[2022-11-18] MEDS: DULoxetine HCL 30 MG CAP PO SCH ×2 (08:17→16:42)
[2022-11-18] MEDS: BISOPROLOL FUMARATE 5 MG TAB PO SCH (08:56)
[2022-11-18] MEDS: CLOPIDOGREL BISULFATE 75 MG TAB PO SCH (09:00)
[2022-11-18] MEDS: ENOXAPARIN INJ 30 MG/0.3 ML SYR SQ SCH (09:01)
--- NOTE | 2022-11-18 09:03 | Hospitalist Progress Note ---
Date of Service November 18, 2022 Assessment & Plan (1) Confusion: Plan: Pt presents d/t confusion - known hx of Parkinson's , hx of CVA CT head - No acute intracranial findings. CTA head - 1. No central vessel occlusion. No intracranial aneurysm. 2. 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 CTA neck - Mild to moderate plaque within the proximal bilateral cervical internal carotid arteries without stenosis. Abnormal CTA head, hx of CVA -> obtained brain MRI - 1. Diffusion-weighted sequence moderately compromised by artifact. However, no definite acute infarct. 2. No significant change in appearance of the brain since MRI of September 22, 2022. 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 Cont. plavix, rosuvastatin Pt presented at PCP office d/t cough day prior to admission CXR in ER - unremarkable - personally reviewed WBC 11K - mildly elev., obtained procalcitonin - 0.10 - started pt on mucinex Pt has hx of COPD - cont. home inhalers In the ED , UA obtained - and abnormal - recent hx of UTI w/ Enterococcus faecalis + urinary frequency - started on vancomycin by ED for poss. Enterococcus - will cont. for now, and will await cultures - started on ceftriaxone in ED - will continue for now, and will await cultures - ucultx positive for Citrobacter -changed antibiotics to cefepime Parkinson's - -cont. home carbidopa-levodopa CAD s/p stent HLD HTN - cont. home meds DM2 - hold home oral meds -SSI DVT ppx lovenox Code: full Admission and Anticipated Discharge Date Admission Date: November 16, 2022 Subjective Pt seen in follow up of confusion , UTI, in the setting of Parkinson's, and COPD Patient is sitting up in bed, in NAD has no complaints today However also somewhat confused. Sister updated Ucultx positive for Citrobacter Review of Systems Review of Systems: All systems reviewed & are unremarkable except as noted in Subjective Physical Exam Physical Exam: Constitutional:I WD/WN, elderly F i n NAD Eyes: EOMI, conjunctivae normal, anicteric sclerae ENMT: external ear and n ose normal, oropha rynx normal Neck: supple Respiratory: normal respiratory effort and + coug h (+ rhonchi, no w heezing) Cardiovascular:I RRR, no murmur, no edema Chest (Breasts): Chest: normal insp ection of chest Gastrointestinal ( Abdomen): normal bowel sound s, soft, nontender Musculoskeletal: moves extremities Skin: no rashes, warm an d dry Neurologic: Awake, but does no t answer appropria tely, EOMI, no fac e palsy, no dysart hria, moves extrem ities Results & Data Results & Data Vital Signs (Past 12 Hours) Vital Signs Temp Pulse Pulse Resp BP Pulse Ox O2 Del Method 11/18/22 07:41 36.4 C L 70 15 160/80 H 93 Room Air 11/18/22 07:16 66 16 93 Room Air 11/18/22 07:15 65 11/18/22 03:03 36.5 C 68 18 164/76 H 95 Room Air 11/17/22 23:38 Room Air 11/17/22 23:11 36.6 C 75 18 128/67 93 Room Air Laboratory Results 11/18/22 11/18/22 11/18/22 Range/Units 05:51 05:45 05:45 WBC 6.68 (4.8-10.8) K/ul RBC 3.56 L (4.20-5.40) M/uL Hgb 10.1 L (12.0-16.0) g/dl Hct 31.2 L (37.0-47.0) % MCV 87.6 (80.0-100.0) fL MCH 28.4 (25.0-34.0) pg MCHC 32.4 (32.0-36.0) g/dL RDW Std Deviation 48.9 H (36.4-46.3) fL RDW Coeff of Jayden 15.2 H (11.5-14.5) % Plt Count 255 (130-400) K/uL MPV 9.5 (9.4-12.4) fL Sodium 141 (136-145) mmol/L Potassium 3.8 (3.5-5.1) mmol/L Chloride 107 (98-107) mmol/L Carbon Dioxide 28 (21-32) mmol/L Anion Gap 6 (3-11) BUN 12 (6-23) mg/dl Creatinine 0.72 (0.6-1.2) mg/dl Est Cr Clr Drug Dosing 57.9 ml/min Est GFR ( Amer) 91.0 ml/min Est GFR (Non-Af Amer) 78.5 ml/min BUN/Creatinine Ratio 16.7 (10-20) Glucose 109 H (70-99(Fasting)) mg/dl POC Glucose 117 H (70-99) mg/dl Estimat Average Glucose mg/dl Hemoglobin A1c (4.5-5.6) % Calcium 8.9 (8.6-10.3) mg/dl Phosphorus 3.1 (2.5-4.9) mg/dl Magnesium 1.8 (1.7-2.4) mg/dl Nasal Screen MRSA (PCR) (Negative) 11/18/22 11/17/22 11/17/22 Range/Units 00:20 23:59 Unknown WBC (4.8-10.8) K/ul RBC (4.20-5.40) M/uL Hgb (12.0-16.0) g/dl Hct (37.0-47.0) % MCV (80.0-100.0) fL MCH (25.0-34.0) pg MCHC (32.0-36.0) g/dL RDW Std Deviation (36.4-46.3) fL RDW Coeff of Jayden (11.5-14.5) % Plt Count (130-400) K/uL MPV (9.4-12.4) fL Sodium (136-145) mmol/L Potassium (3.5-5.1) mmol/L Chloride (98-107) mmol/L Carbon Dioxide (21-32) mmol/L Anion Gap (3-11) BUN (6-23) mg/dl Creatinine (0.6-1.2) mg/dl Est Cr Clr Drug Dosing ml/min Est GFR ( Amer) ml/min Est GFR (Non-Af Amer) ml/min BUN/Creatinine Ratio (10-20) Glucose (70-99(Fasting)) mg/dl POC Glucose 138 H 140 H (70-99) mg/dl Estimat Average Glucose mg/dl Hemoglobin A1c (4.5-5.6) % Calcium (8.6-10.3) mg/dl Phosphorus (2.5-4.9) mg/dl Magnesium (1.7-2.4) mg/dl Nasal Screen MRSA (PCR) Negative (Negative) 11/17/22 11/17/22 11/17/22 Range/Units 17:03 11:57 05:26 WBC (4.8-10.8) K/ul RBC (4.20-5.40) M/uL Hgb (12.0-16.0) g/dl Hct (37.0-47.0) % MCV (80.0-100.0) fL MCH (25.0-34.0) pg MCHC (32.0-36.0) g/dL RDW Std Deviation (36.4-46.3) fL RDW Coeff of Jayden (11.5-14.5) % Plt Count (130-400) K/uL MPV (9.4-12.4) fL Sodium (136-145) mmol/L Potassium (3.5-5.1) mmol/L Chloride (98-107) mmol/L Carbon Dioxide (21-32) mmol/L Anion Gap (3-11) BUN (6-23) mg/dl Creatinine (0.6-1.2) mg/dl Est Cr Clr Drug Dosing ml/min Est GFR ( Amer) ml/min Est GFR (Non-Af Amer) ml/min BUN/Creatinine Ratio (10-20) Glucose (70-99(Fasting)) mg/dl POC Glucose 120 H 116 H (70-99) mg/dl Estimat Average Glucose 140 mg/dl Hemoglobin A1c 6.5 H (4.5-5.6) % Calcium (8.6-10.3) mg/dl Phosphorus (2.5-4.9) mg/dl Magnesium (1.7-2.4) mg/dl Nasal Screen MRSA (PCR) (Negative) Medications Administered Current Inpatient Medications Acetaminophen (Acetaminophen 325 Mg Tab) 650 mg PO Q4H PRN PRN Reason: Pain or Fever Stop: 12/16/22 18:35 Albuterol (Albut/Ipratrop 3mg/0.5mg Neb 3 Ml Vial) 3 ml INH TIDR [facility]; Protocol Stop: 12/16/22 21:59 Last Admin: 11/18/22 07:16 Dose: 3 ml Albuterol (Albuterol Hfa 8 Gm Inhaler) 2 puffs INH Q4H PRN PRN Reason: Shortness Of Breath Or Wheezin Stop: 12/16/22 21:18 Bisoprolol Fumarate (Bisoprolol Fumarate 5 Mg Tab) 2.5 mg PO DAILY [facility] Stop: 12/17/22 08:59 Last Admin: 11/17/22 07:57 Dose: 2.5 mg Carbidopa/Levodopa (Carbidopa/Levodopa 25/100mg Tab) 1.5 tab PO QID@0800,1200,1600,2000 [facility] Stop: 12/16/22 21:29 Last Admin: 11/18/22 08:11 Dose: 1.5 tab Clopidogrel Bisulfate (Clopidogrel Bisulfate 75 Mg Tab) 75 mg PO QAM [facility] Stop: 12/17/22 08:59 Last Admin: 11/17/22 07:55 Dose: 75 mg Dextrose (Dextrose 50% 50 Ml Syringe) 25 - 50 ml IV UD PRN; Protocol PRN Reason: Hypoglycemia Protocol Stop: 12/16/22 19:17 Duloxetine HCl (Duloxetine Hcl 30 Mg Cap) 30 mg PO BID@0830,1630 [facility] Stop: 12/16/22 21:18 Last Admin: 11/18/22 08:17 Dose: 30 mg Enoxaparin Sodium (Enoxaparin Inj 30 Mg/0.3 Ml Syr) 30 mg SQ QAM [facility] Stop: 12/17/22 08:59 Last Admin: 11/17/22 07:58 Dose: 30 mg Glucagon (Glucagon For Inj 1 Mg Vial) 1 mg SQ UD PRN; Protocol PRN Reason: Hypoglycemia Protocol Stop: 12/16/22 19:17 Glucose (Glucose 10 Tab/Tube) 4 - 8 tab PO UD PRN; Protocol PRN Reason: Hypoglycemia Treatment Stop: 12/16/22 19:17 Glucose (Glucose 40% Gel 15 Gm Tube) 15 - 30 gm PO UD PRN; Protocol PRN Reason: Hypoglycemia Protocol Stop: 12/16/22 19:17 Guaifenesin (Guaifenesin 600 Mg Tabcr) 600 mg PO Q12 [facility] Stop: 12/16/22 20:59 Last Admin: 11/17/22 20:16 Dose: 600 mg Guaifenesin/Codeine Phosphate (Guaifenesin/Codeine 100mg/10mg 5ml Udc) 5 ml PO Q6H PRN PRN Reason: Cough Stop: 12/17/22 18:21 Hydrochlorothiazide (Hydrochlorothiazide 25 Mg Tab) 6.25 mg PO DAILY [facility] Stop: 12/17/22 08:59 Last Admin: 11/17/22 07:57 Dose: 6.25 mg Cefepime HCl 2,000 mg/ Syringe 20 mls @ 5 mls/min IV Q12H [facility]; Protocol Stop: 11/28/22 07:59 Insulin Aspart (Insulin Aspart Per Unit Charge) 0 units SC Q6 [facility] Stop: 12/17/22 17:59 Last Admin: 11/18/22 06:07 Dose: Not Given Lactobacillus Acidophilus (Advanced Probiotic 1250 Mg Capsule) 2 cap PO DAILY [facility] Stop: 12/17/22 18:14 Last Admin: 11/17/22 20:16 Dose: 2 cap Lorazepam (Lorazepam 0.5 Mg Tab) 0.25 mg PO BID PRN PRN Reason: Anxiety, shortness of breath Stop: 12/17/22 18:22 Losartan Potassium (Losartan Potassium 25 Mg Tab) 25 mg PO QAM [facility] Stop: 12/17/22 08:59 Last Admin: 11/17/22 07:58 Dose: 25 mg Miscellaneous (Carbohydrates For Hypoglycemia ) 15 - 30 gm PO UD PRN PRN Reason: Hypoglycemia Protocol Stop: 12/16/22 19:17 Miscellaneous (Rivastigmine 9.5 Mg/24 Hour Patch*Order Awaiting Action) 1 each N/A QS [facility] Stop: 12/17/22 00:00 Last Admin: 11/18/22 08:44 Dose: Not Given Miscellaneous Information (Pharmacy Glycemic Mgmt Consult) 1 each N/A UD PRN PRN Reason: Consult Stop: 12/16/22 19:17 Pyridoxine HCl (Pyridoxine Hcl 50 Mg Tab) 50 mg PO QAM [facility] Stop: 12/17/22 08:59 Last Admin: 11/17/22 07:58 Dose: 50 mg Rosuvastatin Calcium (Rosuvastatin Calcium 5 Mg Tab) 5 mg PO DAILY [facility] Stop: 12/17/22 08:59 Last Admin: 11/17/22 07:55 Dose: 5 mg Umeclidinium [place] (Umeclidinium [place] 62.5mcg/Blister 7 Puffs/Inhaler) 1 puffs INH QAM [facility] Stop: 12/17/22 08:59 Last Admin: 11/17/22 07:58 Dose: 1 puffs Vibegron (Vibegron 75 Mg Tab) 75 mg PO [facility] Stop: 12/17/22 08:59 Last Admin: 11/17/22 07:58 Dose: 75 mg
[2022-11-18] MEDS: guaiFENesin 600 MG TABCR PO SCH ×2 (09:04→20:02)
[2022-11-18] MEDS: hydroCHLOROthiazide 25 MG TAB PO SCH (09:06)
[2022-11-18] MEDS: ADVANCED PROBIOTIC 1250 MG CAPSULE PO SCH (09:08)
[2022-11-18] MEDS: LOSARTAN POTASSIUM 25 MG TAB PO SCH (09:09)
[2022-11-18] MEDS: PYRIDOXINE HCL 50 MG TAB PO SCH (09:10)
[2022-11-18] MEDS: ROSUVASTATIN CALCIUM 5 MG TAB PO SCH (09:11)
[2022-11-18] MEDS: UMECLIDINIUM BROMIDE 62.5MCG/BLISTER 7 PUFFS/INHALER INH SCH (09:11)
[2022-11-18] MEDS: VIBEGRON 75 MG TAB PO SCH (09:12)
[2022-11-18] MEDS: CEFEPIME 2,000 MG in SYRINGE 0 ML IV SCH ×2 (09:59→19:53)
[2022-11-18] MEDS: guaiFENesin/CODEINE 100MG/10MG 5ML UDC PO PRN ×2 (11:34→17:35)
--- NOTE | 2022-11-18 14:02 | Pharmacy Report ---
Pharmacy Glycemic Short Note 2 - Date of Service November 18, 2022 - Glycemic Short BSG Results (Last 24 hours): 11/17/22 11/17/22 11/18/22 17:03 23:59 00:20 Glucose POC Glucose 120 H 140 H 138 H 11/18/22 11/18/22 11/18/22 05:45 05:51 11:26 Glucose 109 H POC Glucose 117 H 135 H OUTPATIENT ANTIDIABETIC REGIMEN: * metformin 1000mg BIDM, Januvia 100mg QAM, glimeperide 1mg daily * HbA1c 7.0% (06/15/22), repeat pending 11/17/22 ASSESSMENT: 11/18/22 * BSGs yesterday were [phone] mg/dL. Patient received no insulin. Patient was NPO. * Fasting today is 117 mg/dL. Patient given diet at lunch. * Will continue Novolog. * Since diet ordered, added Lantus 6 units (weight-based stress of 1) if BSG > 150 mg/dL. BACKGROUND * Anni is an 82 YOF presenting for altered mental status, with a history of T2DM. Pharmacy has been consulted for glycemic management * Patient was started on vancomycin and ceftriaxone for possible infection, no additional stressors at this time. * Will hold outpatient medications and begin Novolog scale with parameters at a weight based stress of 2 * Will add a Lantus scale at bedtime for basal needs based off of a weight based stress of 1-2 (0-6-12), PLAN FOR INPATIENT GLYCEMIC CONTROL: * Hold outpatient oral diabetes medications * Basal insulin * Lantus 6 units SQ BID (hold if BSG < 150 mg/dL) * Bolus insulin * NovoLog per scale ACHS or Q6hrs while NPO * Goal Range: Low 110 mg/dL - High 140 mg/dL * Correction Factor: 30 mg/dL/unit * Nutritional / Prandial insulin per carb ratio of 1 unit per 11 grams CHO consumed
[2022-11-18] MEDS: INSULIN ASPART PER UNIT CHARGE SQ SCH ×2 (17:18→20:17)
[2022-11-18] MEDS: LANTUS PER UNIT CHARGE SC SCH (20:18)
[2022-11-19 06:35] LABS: Hematocrit (blood only) 32.8 % (37.0-47.0); Hemoglobin 10.4 g/dl (12.0-16.0); Mean Corpuscular Hemoglobin 28.7 pg (25.0-34.0); Mean Corpuscular Hgb Conc 31.7 g/dL (32.0-36.0); Mean Corpuscular Volume 90.6 fL (80.0-100.0); Mean Platelet Volume 9.3 fL (9.4-12.4); Platelet Count 275 K/uL (130-400); RDW Coefficient of Variation 14.9 % (11.5-14.5); RDW Standard Deviation 49.8 fL (36.4-46.3); Red Blood Count 3.62 M/uL (4.20-5.40)
[2022-11-19] MEDS: ALBUT/IPRATROP 3MG/0.5MG NEB 3 ML VIAL INH SCH ×3 (06:58→19:25)
[2022-11-19 07:01] LABS: BUN Creatinine Ratio 23.5 (10-20); Calcium 8.9 mg/dl (8.6-10.3); Est GFR (African American) 74.5 ml/min; Est GFR (Non-African American) 64.3 ml/min; Magnesium 1.8 mg/dl (1.7-2.4); Phosphorus 3.1 mg/dl (2.5-4.9); Potassium 3.9 mmol/L (3.5-5.1)
[2022-11-19] MEDS: guaiFENesin 600 MG TABCR PO SCH ×2 (07:59→22:10)
[2022-11-19] MEDS: hydroCHLOROthiazide 25 MG TAB PO SCH (07:59)
[2022-11-19] MEDS: LOSARTAN POTASSIUM 25 MG TAB PO SCH (08:00)
[2022-11-19] MEDS: ADVANCED PROBIOTIC 1250 MG CAPSULE PO SCH (08:00)
[2022-11-19] MEDS: VIBEGRON 75 MG TAB PO SCH (08:00)
[2022-11-19] MEDS: PYRIDOXINE HCL 50 MG TAB PO SCH (08:00)
[2022-11-19] MEDS: BISOPROLOL FUMARATE 5 MG TAB PO SCH (08:00)
[2022-11-19] MEDS: CLOPIDOGREL BISULFATE 75 MG TAB PO SCH (08:00)
[2022-11-19] MEDS: CARBIDOPA/LEVODOPA 25/100MG TAB PO SCH ×4 (08:01→22:09)
[2022-11-19] MEDS: ENOXAPARIN INJ 30 MG/0.3 ML SYR SQ SCH (08:01)
[2022-11-19] MEDS: ROSUVASTATIN CALCIUM 5 MG TAB PO SCH (08:01)
[2022-11-19] MEDS: DULoxetine HCL 30 MG CAP PO SCH ×2 (08:01→17:36)
[2022-11-19] MEDS: LANTUS PER UNIT CHARGE SC SCH ×2 (08:02→22:06)
[2022-11-19] MEDS: UMECLIDINIUM BROMIDE 62.5MCG/BLISTER 7 PUFFS/INHALER INH SCH (08:02)
[2022-11-19] MEDS: CEFEPIME 2,000 MG in SYRINGE 0 ML IV SCH ×2 (08:08→22:10)
[2022-11-19] MEDS: INSULIN ASPART PER UNIT CHARGE SQ SCH ×4 (08:10→22:05)
--- NOTE | 2022-11-19 08:30 | Hospitalist Progress Note ---
Date of Service November 19, 2022 Assessment & Plan (1) Confusion: Plan: Pt presents d/t confusion - known hx of Parkinson's , hx of CVA CT head - No acute intracranial findings. CTA head - 1. No central vessel occlusion. No intracranial aneurysm. 2. 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 CTA neck - Mild to moderate plaque within the proximal bilateral cervical internal carotid arteries without stenosis. Abnormal CTA head, hx of CVA -> obtained brain MRI - 1. Diffusion-weighted sequence moderately compromised by artifact. However, no definite acute infarct. 2. No significant change in appearance of the brain since MRI of September 22, 2022. 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 Cont. plavix, rosuvastatin Pt presented at PCP office d/t cough day prior to admission CXR in ER - unremarkable - personally reviewed WBC 11K - mildly elev., obtained procalcitonin - 0.10 - started pt on mucinex Pt has hx of COPD - cont. home inhalers In the ED , UA obtained - and abnormal - recent hx of UTI w/ Enterococcus faecalis + urinary frequency - started on vancomycin by ED for poss. Enterococcus - will cont. for now, and will await cultures - started on ceftriaxone in ED - will continue for now, and will await cultures - ucultx positive for Citrobacter -changed antibiotics to cefepime Parkinson's - -cont. home carbidopa-levodopa CAD s/p stent HLD HTN - cont. home meds DM2 - hold home oral meds -SSI DVT ppx lovenox Code: full Admission and Anticipated Discharge Date Admission Date: November 16, 2022 Subjective Pt seen in follow up of confusion , UTI, in the setting of Parkinson's, and COPD Patient is sitting up in bed, in NAD has no complaints today However also somewhat confused. Ucultx positive for Citrobacter Notified by RN that urine looks quite concentrated and pt only drinks diet coke Review of Systems Review of Systems: All systems reviewed & are unremarkable except as noted in Subjective Physical Exam Physical Exam: Constitutional:I WD/WN, elderly F i n NAD Eyes: EOMI, conjunctivae normal, anicteric sclerae ENMT: external ear and n ose normal, oropha rynx normal Neck: supple Respiratory: normal respiratory effort , CTAB Cardiovascular:I RRR, no murmur, no edema Chest (Breasts): Chest: normal insp ection of chest Gastrointestinal ( Abdomen): normal bowel sound s, soft, nontender Musculoskeletal: moves extremities ESkin: no rashes, warm an d dry Neurologic: Awake, but does no t answer all quest ions appropriately , EOMI, no face pa lsy, no dysarthria , moves extremitie s Results & Data Results & Data Vital Signs (Past 12 Hours) Vital Signs Temp Pulse Pulse Resp BP Pulse Ox O2 Del Method 11/19/22 07:31 36.8 C 67 20 118/71 94 Room Air 11/19/22 07:10 66 11/19/22 06:58 69 17 93 Room Air 11/19/22 03:53 36.7 C 65 18 149/81 H 93 Room Air 11/18/22 22:00 68 11/18/22 23:58 36.9 C 68 18 132/61 94 Room Air Laboratory Results 11/19/22 11/19/22 11/19/22 Range/Units 07:19 05:35 05:35 WBC 5.90 (4.8-10.8) K/ul RBC 3.62 L (4.20-5.40) M/uL Hgb 10.4 L (12.0-16.0) g/dl Hct 32.8 L (37.0-47.0) % MCV 90.6 (80.0-100.0) fL MCH 28.7 (25.0-34.0) pg MCHC 31.7 L (32.0-36.0) g/dL RDW Std Deviation 49.8 H (36.4-46.3) fL RDW Coeff of Jayden 14.9 H (11.5-14.5) % Plt Count 275 (130-400) K/uL MPV 9.3 L (9.4-12.4) fL Sodium 141 (136-145) mmol/L Potassium 3.9 (3.5-5.1) mmol/L Chloride 109 H (98-107) mmol/L Carbon Dioxide 25 (21-32) mmol/L Anion Gap 7 (3-11) BUN 20 (6-23) mg/dl Creatinine 0.85 (0.6-1.2) mg/dl Est Cr Clr Drug Dosing 49.0 ml/min Est GFR ( Amer) 74.5 ml/min Est GFR (Non-Af Amer) 64.3 ml/min BUN/Creatinine Ratio 23.5 H (10-20) Glucose 124 H (70-99(Fasting)) mg/dl POC Glucose 138 H (70-99) mg/dl Calcium 8.9 (8.6-10.3) mg/dl Phosphorus 3.1 (2.5-4.9) mg/dl Magnesium 1.8 (1.7-2.4) mg/dl 11/18/22 11/18/22 11/18/22 Range/Units 20:08 16:56 11:26 WBC (4.8-10.8) K/ul RBC (4.20-5.40) M/uL Hgb (12.0-16.0) g/dl Hct (37.0-47.0) % MCV (80.0-100.0) fL MCH (25.0-34.0) pg MCHC (32.0-36.0) g/dL RDW Std Deviation (36.4-46.3) fL RDW Coeff of Jayden (11.5-14.5) % Plt Count (130-400) K/uL MPV (9.4-12.4) fL Sodium (136-145) mmol/L Potassium (3.5-5.1) mmol/L Chloride (98-107) mmol/L Carbon Dioxide (21-32) mmol/L Anion Gap (3-11) BUN (6-23) mg/dl Creatinine (0.6-1.2) mg/dl Est Cr Clr Drug Dosing ml/min Est GFR ( Amer) ml/min Est GFR (Non-Af Amer) ml/min BUN/Creatinine Ratio (10-20) Glucose (70-99(Fasting)) mg/dl POC Glucose 87 176 H 135 H (70-99) mg/dl Calcium (8.6-10.3) mg/dl Phosphorus (2.5-4.9) mg/dl Magnesium (1.7-2.4) mg/dl Medications Administered Current Inpatient Medications Acetaminophen (Acetaminophen 325 Mg Tab) 650 mg PO Q4H PRN PRN Reason: Pain or Fever Stop: 12/16/22 18:35 Albuterol (Albut/Ipratrop 3mg/0.5mg Neb 3 Ml Vial) 3 ml INH TIDR [facility]; Protocol Stop: 12/16/22 21:59 Last Admin: 11/19/22 06:58 Dose: 3 ml Albuterol (Albuterol Hfa 8 Gm Inhaler) 2 puffs INH Q4H PRN PRN Reason: Shortness Of Breath Or Wheezin Stop: 12/16/22 21:18 Bisoprolol Fumarate (Bisoprolol Fumarate 5 Mg Tab) 2.5 mg PO DAILY [facility] Stop: 12/17/22 08:59 Last Admin: 11/19/22 08:00 Dose: 2.5 mg Carbidopa/Levodopa (Carbidopa/Levodopa 25/100mg Tab) 1.5 tab PO QID@0800,1200,1600,2000 [facility] Stop: 12/16/22 21:29 Last Admin: 11/19/22 08:01 Dose: 1.5 tab Clopidogrel Bisulfate (Clopidogrel Bisulfate 75 Mg Tab) 75 mg PO QAM [facility] Stop: 12/17/22 08:59 Last Admin: 11/19/22 08:00 Dose: 75 mg Dextrose (Dextrose 50% 50 Ml Syringe) 25 - 50 ml IV UD PRN; Protocol PRN Reason: Hypoglycemia Protocol Stop: 12/16/22 19:17 Duloxetine HCl (Duloxetine Hcl 30 Mg Cap) 30 mg PO BID@0830,1630 [facility] Stop: 12/16/22 21:18 Last Admin: 11/19/22 08:01 Dose: 30 mg Enoxaparin Sodium (Enoxaparin Inj 30 Mg/0.3 Ml Syr) 30 mg SQ QAM [facility] Stop: 12/17/22 08:59 Last Admin: 11/19/22 08:01 Dose: 30 mg Glucagon (Glucagon For Inj 1 Mg Vial) 1 mg SQ UD PRN; Protocol PRN Reason: Hypoglycemia Protocol Stop: 12/16/22 19:17 Glucose (Glucose 10 Tab/Tube) 4 - 8 tab PO UD PRN; Protocol PRN Reason: Hypoglycemia Treatment Stop: 12/16/22 19:17 Glucose (Glucose 40% Gel 15 Gm Tube) 15 - 30 gm PO UD PRN; Protocol PRN Reason: Hypoglycemia Protocol Stop: 12/16/22 19:17 Guaifenesin (Guaifenesin 600 Mg Tabcr) 600 mg PO Q12 [facility] Stop: 12/16/22 20:59 Last Admin: 11/19/22 07:59 Dose: 600 mg Guaifenesin/Codeine Phosphate (Guaifenesin/Codeine 100mg/10mg 5ml Udc) 5 ml PO Q6H PRN PRN Reason: Cough Stop: 12/17/22 18:21 Last Admin: 11/18/22 17:35 Dose: 5 ml Hydrochlorothiazide (Hydrochlorothiazide 25 Mg Tab) 6.25 mg PO DAILY [facility] Stop: 12/17/22 08:59 Last Admin: 11/19/22 07:59 Dose: 6.25 mg Cefepime HCl 2,000 mg/ Syringe 20 mls @ 5 mls/min IV Q12H [facility]; Protocol Stop: 11/28/22 07:59 Last Admin: 11/19/22 08:08 Dose: 5 mls/min Insulin Aspart (Insulin Aspart Per Unit Charge) 0 units SQ ACHS [facility] Stop: 12/18/22 16:29 Last Admin: 11/19/22 08:10 Dose: 2 units Insulin Glargine (Lantus Per Unit Charge) 0 units SC BID [facility]; Protocol Stop: 12/18/22 20:59 Last Admin: 11/19/22 08:02 Dose: Not Given Lactobacillus Acidophilus (Advanced Probiotic 1250 Mg Capsule) 2 cap PO DAILY [facility] Stop: 12/17/22 18:14 Last Admin: 11/19/22 08:00 Dose: 2 cap Lorazepam (Lorazepam 0.5 Mg Tab) 0.25 mg PO BID PRN PRN Reason: Anxiety, shortness of breath Stop: 12/17/22 18:22 Losartan Potassium (Losartan Potassium 25 Mg Tab) 25 mg PO QAM [facility] Stop: 12/17/22 08:59 Last Admin: 11/19/22 08:00 Dose: 25 mg Miscellaneous (Carbohydrates For Hypoglycemia ) 15 - 30 gm PO UD PRN PRN Reason: Hypoglycemia Protocol Stop: 12/16/22 19:17 Miscellaneous (Rivastigmine 9.5 Mg/24 Hour Patch*Order Awaiting Action) 1 each N/A QS [facility] Stop: 12/17/22 00:00 Last Admin: 11/19/22 08:04 Dose: Not Given Miscellaneous Information (Pharmacy Glycemic Mgmt Consult) 1 each N/A UD PRN PRN Reason: Consult Stop: 12/16/22 19:17 Pyridoxine HCl (P[facility]idoxine Hcl 50 Mg Tab) [facility] Stop: 12/17/22 08:59 Last Admin: 11/19/22 08:00 Dose: 50 mg Rosuvastatin Calcium (Rosuvastatin Calcium 5 Mg Tab) 5 mg PO DAILY [facility] Stop: 12/17/22 08:59 Last Admin: 11/19/22 08:01 Dose: 5 mg Umeclidinium Vichy (Umeclidinium Vichy 62.5mcg/Blister 7 Puffs/Inhaler) [facility] puffs [facility]H [facility] [place] Stop: 12/17/22 08:59 Last Admin: 11/19/22 08:02 Dose: 1 puffs Vibegron (Vibegron 75 Mg Tab) 75 mg PO QAM [facility] Stop: 12/17/22 08:59 Last Admin: 11/19/22 08:00 Dose: 75 mg
[2022-11-19] MEDS: guaiFENesin/CODEINE 100MG/10MG 5ML UDC PO PRN (12:17)
[2022-11-19] MEDS: SODIUM CHLORIDE 0.9% 500 ML IV SCH ×2 (12:19→20:00)
[2022-11-20] MEDS: SODIUM CHLORIDE 0.9% 1,000 ML IV SCH ×2 (01:53→16:34)
[2022-11-20] MEDS: ALBUT/IPRATROP 3MG/0.5MG NEB 3 ML VIAL INH SCH ×3 (06:59→19:58)
[2022-11-20 07:51] LABS: Hematocrit (blood only) 31.7 % (37.0-47.0); Hemoglobin 10.1 g/dl (12.0-16.0); Mean Corpuscular Hemoglobin 28.1 pg (25.0-34.0); Mean Corpuscular Hgb Conc 31.9 g/dL (32.0-36.0); Mean Corpuscular Volume 88.3 fL (80.0-100.0); Platelet Count 252 K/uL (130-400); RDW Coefficient of Variation 14.9 % (11.5-14.5); Red Blood Count 3.59 M/uL (4.20-5.40); White Blood Count 5.69 K/ul (4.8-10.8)
[2022-11-20 08:16] LABS: BUN Creatinine Ratio 19.7 (10-20); Calcium 8.8 mg/dl (8.6-10.3); Creatinine Clr Calc Pharmacy 54.8 ml/min; Est GFR (African American) 85.3 ml/min; Est GFR (Non-African American) 73.6 ml/min; Magnesium 1.8 mg/dl (1.7-2.4); Phosphorus 2.8 mg/dl (2.5-4.9)
[2022-11-20] MEDS: INSULIN ASPART PER UNIT CHARGE SQ SCH ×4 (08:27→21:28)
[2022-11-20] MEDS: CARBIDOPA/LEVODOPA 25/100MG TAB PO SCH ×4 (08:35→20:30)
[2022-11-20] MEDS: DULoxetine HCL 30 MG CAP PO SCH ×2 (08:36→16:32)
[2022-11-20] MEDS: LANTUS PER UNIT CHARGE SC SCH ×2 (08:48→21:29)
[2022-11-20] MEDS: CEFEPIME 2,000 MG in SYRINGE 0 ML IV SCH (08:52)
[2022-11-20] MEDS: VIBEGRON 75 MG TAB PO SCH (08:53)
[2022-11-20] MEDS: UMECLIDINIUM BROMIDE 62.5MCG/BLISTER 7 PUFFS/INHALER INH SCH (08:53)
[2022-11-20] MEDS: ROSUVASTATIN CALCIUM 5 MG TAB PO SCH (08:54)
[2022-11-20] MEDS: RIVASTIGMINE PATCH TD SCH (08:56)
[2022-11-20] MEDS: PYRIDOXINE HCL 50 MG TAB PO SCH (08:59)
[2022-11-20] MEDS: LOSARTAN POTASSIUM 25 MG TAB PO SCH (09:00)
[2022-11-20] MEDS: ADVANCED PROBIOTIC 1250 MG CAPSULE PO SCH (09:02)
[2022-11-20] MEDS: CLOPIDOGREL BISULFATE 75 MG TAB PO SCH (09:04)
[2022-11-20] MEDS: guaiFENesin 600 MG TABCR PO SCH ×2 (09:04→20:30)
[2022-11-20] MEDS: BISOPROLOL FUMARATE 5 MG TAB PO SCH (09:06)
[2022-11-20] MEDS: hydroCHLOROthiazide 25 MG TAB PO SCH (09:08)
[2022-11-20] MEDS: ENOXAPARIN INJ 30 MG/0.3 ML SYR SQ SCH (09:10)
--- NOTE | 2022-11-20 11:52 | Pharmacy Report ---
Pharmacy Glycemic Short Note 2 - Date of Service November 20, 2022 - Glycemic Short BSG Results (Last 24 hours): 11/19/22 11/19/22 11/20/22 16:22 20:29 07:05 Glucose 148 H POC Glucose 137 H 134 H 11/20/22 11/20/22 07:29 11:16 Glucose POC Glucose 155 H 157 H OUTPATIENT ANTIDIABETIC REGIMEN: * metformin 1000mg BIDM, Januvia 100mg QAM, glimeperide 1mg daily * HbA1c 6.5% (11/17/22) ASSESSMENT: 11/20/22 * BSGs yesterday were [phone] mg/dL. Today's BSGs are 155-157 mg/dL. * Patient received 6 units of Novolog yesterday. * Fasting continues to trend upwards but is still reasonable. Will continue Lantus. Diet appears to have improved. * For Novolog, CR was loosened yesterday. Will also loosen CF to prevent overcorrection. 11/18/22 * BSGs yesterday were [phone] mg/dL. Patient received no insulin. Patient was NPO. * Fasting today is 117 mg/dL. Patient given diet at lunch. * Will continue Novolog. * Since diet ordered, added Lantus 6 units (weight-based stress of 1) if BSG > 150 mg/dL. BACKGROUND * Anni is an 82 YOF presenting for altered mental status, with a history of T2DM. Pharmacy has been consulted for glycemic management * Patient was started on vancomycin and ceftriaxone for possible infection, no additional stressors at this time. * Will hold outpatient medications and begin Novolog scale with parameters at a weight based stress of 2 * Will add a Lantus scale at bedtime for basal needs based off of a weight based stress of 1-2 (0-6-12), PLAN FOR INPATIENT GLYCEMIC CONTROL: * Hold outpatient oral diabetes medications * Basal insulin * Lantus 6 units SQ BID (hold if BSG < 150 mg/dL) * Bolus insulin * NovoLog per scale ACHS or Q6hrs while NPO * Goal Range: Low 110 mg/dL - High 140 mg/dL * Correction Factor: 35 mg/dL/unit * Nutritional / Prandial insulin per carb ratio of 1 unit per 15 grams CHO consumed
[2022-11-20] MEDS ORDERED: cefTRIAXone SODIUM 2,000 MG in DEXTROSE 5% 50 ML IV SCH (17:00)
--- NOTE | 2022-11-20 17:01 | XRay Report ---
XR wrist RT 2V HISTORY: 82 years-old Female ff up fracture follow-up study in a patient with a subacute distal radi al fracture COMPARISON: Right wrist radiographs 10/13/2022 TECHNIQUE: 3 views of the right wrist FINDINGS: Healing subacute intra-articular distal radial fracture demonstrates unchanged alignment. 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 Mild circumferential soft tissue swelling of the wr ist. IMPRESSION: Healing subacute intra-articular distal radial fracture demonstrates unchanged alignment. ACT 112: Negative or not required by law. The above report was generated using voice recognition software. It may contain grammatical, syntax o r spelling errors. Electronically signed by: Henry Rodney M.D. 11/20/2022 5:00 PM
--- NOTE | 2022-11-20 17:02 | Hospitalist Progress Note ---
Date of Service November 20, 2022 Assessment & Plan (1) Confusion: Plan: per Dr. Schwartz's notes with addendum: Encephalopathy secondary to UTI Pt presents d/t confusion - known hx of Parkinson's , hx of CVA CT head - No acute intracranial findings. CTA head - 1. No central vessel occlusion. No intracranial aneurysm. 2. 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 CTA neck - Mild to moderate plaque within the proximal bilateral cervical internal carotid arteries without stenosis. Abnormal CTA head, hx of CVA -> obtained brain MRI - 1. Diffusion-weighted sequence moderately compromised by artifact. However, no definite acute infarct. 2. No significant change in appearance of the brain since MRI of September 22, 2022. 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 -- resolved MS back to baseline per family Pt presented at PCP office d/t cough day prior to admission CXR in ER - unremarkable - personally reviewed WBC 11K - mildly elev., obtained procalcitonin - 0.10 - started pt on mucinex Pt has hx of COPD - cont. home inhalers In the ED , UA obtained - and abnormal - recent hx of UTI w/ Enterococcus faecalis + urinary frequency - started on vancomycin by ED for poss. Enterococcus - will cont. for now, and will await cultures - started on ceftriaxone in ED - will continue for now, and will await cultures - ucultx positive for Citrobacter -changed antibiotics to cefepime changed to Ceftriaxone, on abx day day5/7 Parkinson's Disease -cont. home carbidopa-levodopa CAD s/p stent HLD HTN - cont. home meds DM2 - hold home oral meds -SSI DVT ppx lovenox Code: full Admission and Anticipated Discharge Date Admission Date: November 16, 2022 Subjective ff up for UTI, etc seen resting in bed, comfortable alert, pleasantly confused can state name and her sister's name states she feels fine overall minimal lower abd discomfort no chest pain, dyspnea, palpitations, dizziness no other symptoms Review of Systems Review of Systems: all noted and negative except for above Physical Exam Physical Exam: General- oriented x1, not in distress, speaks in sentences with no effort or accessory muscle use Eyes- anicteric Neck- no JVD Lungs- clear breath sounds bilaterally, no crackles/wheezing Heart- normal rate, regular rhythm; no murmurs Abdomen- normal bowel sounds, nondistended, soft, no tenderness Extremities- no pretibial edema, no calf tenderness Neuro- alert, oriented x 1; no gross focal neurologic deficits Skin- warm & dry Results & Data Results & Data Vital Signs (Past 12 Hours) Vital Signs Temp Pulse Pulse Pulse Resp BP Pulse Ox 11/20/22 14:07 64 20 94 11/20/22 11:01 36.5 C 68 16 142/78 H 93 11/20/22 06:15 63 11/20/22 07:29 11/20/22 07:50 36.6 C 71 16 140/78 93 11/20/22 07:00 64 18 95 O2 Del Method 11/20/22 14:07 Room Air 11/20/22 11:01 Room Air 11/20/22 06:15 11/20/22 07:29 Room Air 11/20/22 07:50 Room Air 11/20/22 07:00 Room Air all noted and reviewed including below
[2022-11-20] MEDS: guaiFENesin/CODEINE 100MG/10MG 5ML UDC PO PRN (17:06)
[2022-11-20] MEDS: LORazepam 0.5 MG TAB PO PRN ×2 (17:42→23:24)
[2022-11-21] MEDS: ALBUT/IPRATROP 3MG/0.5MG NEB 3 ML VIAL INH SCH ×2 (07:02→12:59)
[2022-11-21] MEDS: guaiFENesin 600 MG TABCR PO SCH (08:15)
[2022-11-21] MEDS: CARBIDOPA/LEVODOPA 25/100MG TAB PO SCH ×3 (08:15→15:40)
[2022-11-21] MEDS: CLOPIDOGREL BISULFATE 75 MG TAB PO SCH (08:16)
[2022-11-21] MEDS: ADVANCED PROBIOTIC 1250 MG CAPSULE PO SCH (08:16)
[2022-11-21] MEDS: DULoxetine HCL 30 MG CAP PO SCH ×2 (08:16→15:40)
[2022-11-21] MEDS: hydroCHLOROthiazide 25 MG TAB PO SCH (08:16)
[2022-11-21] MEDS: BISOPROLOL FUMARATE 5 MG TAB PO SCH (08:16)
[2022-11-21] MEDS: PYRIDOXINE HCL 50 MG TAB PO SCH (08:17)
[2022-11-21] MEDS: ROSUVASTATIN CALCIUM 5 MG TAB PO SCH (08:18)
[2022-11-21] MEDS: ENOXAPARIN INJ 30 MG/0.3 ML SYR SQ SCH (08:18)
[2022-11-21] MEDS: UMECLIDINIUM BROMIDE 62.5MCG/BLISTER 7 PUFFS/INHALER INH SCH (08:18)
[2022-11-21] MEDS: LOSARTAN POTASSIUM 25 MG TAB PO SCH (08:18)
[2022-11-21] MEDS: VIBEGRON 75 MG TAB PO SCH (08:18)
[2022-11-21] MEDS: RIVASTIGMINE PATCH TD SCH (08:19)
[2022-11-21] MEDS: LANTUS PER UNIT CHARGE SC SCH (08:23)
[2022-11-21] MEDS: INSULIN ASPART PER UNIT CHARGE SQ SCH ×2 (08:23→12:26)
[2022-11-21] MEDS: SODIUM CHLORIDE 0.9% 1,000 ML IV SCH (09:58)
--- NOTE | 2022-11-21 10:55 | Hospitalist Progress Note ---
Date of Service November 21, 2022 Assessment & Plan (1) Confusion: Plan: METABOLIC ENCEPHALOPATHY LIKELY SECONDARY TO URINARY TRACT INFECTION History of Parkinson's, history of CVA CT head - No acute intracranial findings. CTA head - 1. No central vessel occlusion. No intracranial aneurysm. 2. 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 CTA neck - Mild to moderate plaque within the proximal bilateral cervical internal carotid arteries without stenosis. Brain MRI: 1. Diffusion-weighted sequence moderately compromised by artifact. However, no definite acute infarct. 2. No significant change in appearance of the brain since MRI of September 22, 2022. 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 Urine culture growing Citrobacter freundeii, pansensitive Patient treated with IV cefepime and ceftriaxone, for total of 5 days Patient will need 2 more days of IV cefuroxime to complete 7-day course Cont. plavix, rosuvastatin COUGH, RESOLVED CXR in ER - unremarkable - personally reviewed WBC 11K - mildly elev., obtained procalcitonin - 0.10 - started pt on mucinex Pt has hx of COPD - cont. home inhalers -- Cough resolved, respiratory status stable PARKINSON'S -cont. home carbidopa-levodopa CAD s/p stent HLD HTN - cont. home meds DM2 -A1c 6.5 -Continue usual regimen [facility]position [facility] plan of care discussed with patient's Sister Itzel over the phone in detail and at length all questions answered She is understanding, agreeable, comfortable with the plan of care Admission and Anticipated Discharge Date Admission Date: November 16, 2022 Subjective Follow-up for UTI, etc. Seen sitting up in bed, comfortable, having breakfast In good spirits, pleasantly confused States she feels fine overall Denies abdominal pain, urinary symptoms Denies being on her right wrist no chest pain, dyspnea, palpitations, dizziness No other symptoms Review of Systems Review of Systems: all noted and negative except for above Physical Exam Physical Exam: General- oriented x 1, not in distress, speaks in sentences with no effort or accessory muscle use Eyes- anicteric Neck- no JVD Lungs- clear breath sounds, no crackles or wheezing bilaterally Heart- normal rate, regular rhythm; no murmurs Abdomen- normal bowel sounds, nondistended, soft, no tenderness Extremities- no pretibial edema, no calf tenderness Neuro- alert, oriented x 1; no new gross focal neurologic deficits Skin- warm & dry Results & Data Results & Data Vital Signs (Past 12 Hours) Vital Signs Temp Pulse Pulse Resp BP BP Pulse Ox 11/21/22 08:26 37.1 C 88 17 180/106 H 93 11/21/22 07:32 73 11/21/22 07:02 79 20 99 11/20/22 23:35 37.1 C 82 20 156/70 H 95 O2 Del Method 11/21/22 08:26 Room Air 11/21/22 07:32 11/21/22 07:02 Room Air 11/20/22 23:35 Room Air all noted and reviewed including below
--- NOTE | 2022-11-21 11:04 | Discharge Summary ---
Discharge Summary Date of Service November 21, 2022 Notes For Next Care Provider Medication Changes From Visit Cefuroxime 250 mg twice daily x2 days Admission HPI Per Admitting Provider Patient is an 82-year-old female with history of asthma, COPD, Parkinson's, DM 2, CAD, history of CVA, who presents due to confusion. Patient is currently laying in bed in ED room, in no acute distress, history is provided mostly by her sister present at the bedside. Patient was somewhat "confused" and "not functioning as her usual" yesterday. She was having more cough with sputum production, and was seen by her PCP yesterday. On physical exam, she seemed to be normal and no medication changes were needed at that time. She has history of COPD and chronic cough per sister at the bedside, however she felt that she was having a little more sputum production. Overnight she has a person, who helps her to the bathroom and around 3 in the morning they reported she was acting normal. Then again at 7 in the morning she was sitting up in the living room and acting normal. However soon after she required to go to the bathroom more frequently. They also report that she had a loose stool yesterday. She had a bath around 1 PM and since then she was very tired, more confused and they were not even able to sit her up. Sister tells me that patient could tell her name but otherwise could not answer questions very appropriately. Therefore they brought her to the emergency room by ambulance. In the ED, CT head obtained CTA head and neck obtained. Chest x-ray obtained and unremarkable. UA obtained and somewhat abnormal, due to history of UTI in August with Enterococcus faecalis, ED started patient on vancomycin, as well as ceftriaxone. Currently patient is awake and alert and able to answer simple questions appropriately. She currently has no complaints. Denies any headache fevers chills, denies chest pain or shortness of breath. She does have a cough. Denies abdominal pain. Denies any weakness in her extremities. Admission Exam Per Admitting Provider Constitutional: WD/WN, vitals as above (elderly F in NAD) Eyes: PERRL, conjunctivae normal, anicteric sclerae ENMT: external ear and nose normal, oropharynx normal Neck: trachea midline, no thyromegaly Respiratory: normal respiratory effort and + cough (+ rhonchi, no wheezing) E Cardiovascular: RRR, no murmur, no edema Chest (Breasts): Chest: normal inspection of chest Gastrointestinal (Abdomen): normal bowel sounds, soft, nontender, no hepatosplenomegaly Musculoskeletal: no cyanosis or clubbing, extremities motor strength 5/5 Skin: no rashes, warm and dry Neurologic: PERRL, EOMI, accommodation nl, no face palsy, no dysarthria Principal Dx & Hospital Course #1 = Principal Diagnosis (1) Confusion: METABOLIC ENCEPHALOPATHY LIKELY SECONDARY TO URINARY TRACT INFECTION History of Parkinson's, history of CVA CT head - No acute intracranial findings. CTA head - 1. No central vessel occlusion. No intracranial aneurysm. 2. 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 CTA neck - Mild to moderate plaque within the proximal bilateral cervical internal carotid arteries without stenosis. Brain MRI: 1. Diffusion-weighted sequence moderately compromised by artifact. However, no definite acute infarct. 2. No significant change in appearance of the brain since MRI of September 22, 2022. 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 Urine culture growing Citrobacter freundeii, pansensitive Patient treated with IV cefepime and ceftriaxone, for total of 5 days Patient will need 2 more days of IV cefuroxime to complete 7-day course Cont. plavix, rosuvastatin Patient needs to follow-up with vascular surgery for multifocal intracranial stenosis RIGHT WRIST FRACTURE Wrist x-ray: Healing subacute intra-articular distal radial fracture demonstrates unchanged alignment. Maintain wrist brace/splint Continue to follow-up with [facility] COUGH, RESOLVED CXR in ER - unremarkable - personally reviewed WBC 11K - mildly elev., obtained procalcitonin - 0.10 - started pt on mucinex Pt has hx of COPD - cont. home inhalers -- Cough resolved, respiratory status stable PARKINSON'S -cont. home carbidopa-levodopa CAD s/p stent HLD HTN - cont. home meds DM2 -A1c 6.5 -Continue usual regimen [facility]position [facility] plan of care discussed with patient's Sister Itzel over the phone in detail and at length all questions answered She is understanding, agreeable, comfortable with the plan of care Discharge Exam General- oriented x 1, not in distress, speaks in sentences with no effort or accessory muscle use Eyes- anicteric Neck- no JVD Lungs- clear breath sounds, no crackles or wheezing bilaterally Heart- normal rate, regular rhythm; no murmurs Abdomen- normal bowel sounds, nondistended, soft, no tenderness Extremities- no pretibial edema, no calf tenderness Neuro- alert, oriented x 1; no new gross focal neurologic deficits Skin- warm & dry Updated Medication List Medication Instructions Recorded Confirmed Type albuterol sulfate 90 mcg/actuation 2 puff inhalation Q4H PRN 02/06/22 11/16/22 History aerosol inhaler Shortness Of Breath Or Wheezing carbidopa 25 mg-levodopa 100 mg 1.5 tab PO QID 02/06/22 11/16/22 History tablet duloxetine 30 mg capsule,delayed 30 mg PO BID 02/06/22 11/16/22 History release glimepiride 1 mg tablet 0 mg PO DAILY 02/06/22 11/16/22 History losartan 25 mg tablet 25 mg PO QAM 02/06/22 11/16/22 History metformin 1,000 mg tablet 1,000 mg PO BIDM 02/06/22 11/16/22 History rivastigmine 9.5 mg/24 hour 1 patch topical QAM 02/06/22 11/16/22 History transdermal patch umeclidinium 62.5 mcg/actuation 1 inh inhalation QAM 02/06/22 11/16/22 History blister powder for inhalation (Incruse Ellipta) mirabegron 50 mg tablet,extended 50 mg PO QAM 07/19/22 11/16/22 History release 24 hr (Myrbetriq) sitagliptin phosphate 100 mg 100 mg PO QAM 07/19/22 11/16/22 History tablet (Januvia) clopidogrel 75 mg tablet 75 mg PO QAM #30 tabs 09/12/22 11/16/22 Rx acetaminophen 325 mg tablet 650 mg PO Q6H PRN Pain 09/22/22 11/11/22 History (Tylenol) magnesium hydroxide 400 mg/5 mL 30 ml PO DAILY PRN Constipation 09/22/22 11/11/22 History oral suspension (Milk of Magnesia) pyridoxine (vitamin B6) 50 mg 50 mg PO QAM 09/22/22 11/16/22 History tablet budesonide-formoterol HFA 160 2 puff inhalation BID 10/13/22 11/16/22 History mcg-4.5 mcg/actuation aerosol inhaler rosuvastatin 5 mg tablet 5 mg PO DAILY 10/13/22 11/16/22 History bisoprolol 2.5 1 tab PO DAILY 11/16/22 11/16/22 History mg-hydrochlorothiazide 6.25 mg tablet ipratropium 0.5 mg-albuterol 3 mg 3 ml inhalation TID 11/16/22 11/16/22 History (2.5 mg base)/3 mL nebulization soln mupirocin 2 % topical ointment 0 applic topical DAILY 11/16/22 11/16/22 History nystatin 100,000 unit/gram topical 0 applic EXT BID 11/16/22 11/16/22 History powder (Nystop) L.acidop,casei,lactis,rham-B.lact,carson 2 cap PO DAILY 10 days #20 caps 11/21/22 Rx 625 mg (10 billion cell) capsule (Advanced Probiotic) cefuroxime axetil 250 mg tablet 250 mg PO BID 2 days #4 tabs 11/21/22 Rx Hospital Stay Data Consultations 11/16/22 17:39 ED Decision to Admit Stat Diagnostic Imagining Performed 11/16/22 14:05 CT angio head w con Stat Laboratory Results WBC 5.69 K/ul (4.8-10.8) 11/20/22 07:05 RBC 3.59 M/uL (4.20-5.40) L 11/20/22 07:05 Hgb 10.1 g/dl (12.0-16.0) L 11/20/22 07:05 Hct 31.7 % (37.0-47.0) L 11/20/22 07:05 MCV 88.3 fL (80.0-100.0) 11/20/22 07:05 MCH 28.1 pg (25.0-34.0) 11/20/22 07:05 MCHC 31.9 g/dL (32.0-36.0) L 11/20/22 07:05 RDW Std Deviation 48.0 fL (36.4-46.3) H 11/20/22 07:05 RDW Coeff of Jayden 14.9 % (11.5-14.5) H 11/20/22 07:05 Plt Count 252 K/uL (130-400) 11/20/22 07:05 MPV 10.0 fL (9.4-12.4) 11/20/22 07:05 Immature Gran % (Auto) 0.3 % 11/16/22 14:00 Neut % (Auto) 75.1 % 11/16/22 14:00 Lymph % (Auto) 15.0 % 11/16/22 14:00 Walker % (Auto) 8.5 % 11/16/22 14:00 Eos % (Auto) 0.9 % 11/16/22 14:00 Baso % (Auto) 0.2 % 11/16/22 14:00 Neut # (Auto) 8.34 K/uL (1.40-6.50) H 11/16/22 14:00 Lymph # (Auto) 1.67 K/uL (1.2-3.4) 11/16/22 14:00 Walker # (Auto) 0.94 K/uL (0.11-0.59) H 11/16/22 14:00 Eos # (Auto) 0.10 K/uL (0-0.50) 11/16/22 14:00 Baso # (Auto) 0.02 K/uL (0-0.2) 11/16/22 14:00 Immature Gran # (Auto) 0.03 K/uL (0.01-0.20) 11/16/22 14:00 Sodium 140 mmol/L (136-145) 11/20/22 07:05 Potassium 4.0 mmol/L (3.5-5.1) 11/20/22 07:05 Chloride 111 mmol/L (98-107) H 11/20/22 07:05 Carbon Dioxide 23 mmol/L (21-32) 11/20/22 07:05 Anion Gap 6 (3-11) 11/20/22 07:05 BUN 15 mg/dl (6-23) 11/20/22 07:05 Creatinine 0.76 mg/dl (0.6-1.2) 11/20/22 07:05 Est Cr Clr Drug Dosing 54.8 ml/min 11/20/22 07:05 Est GFR ( Amer) 85.3 ml/min 11/20/22 07:05 Est GFR (Non-Af Amer) 73.6 ml/min 11/20/22 07:05 BUN/Creatinine Ratio 19.7 (10-20) 11/20/22 07:05 Glucose 148 mg/dl (70-99(Fasting)) H 11/20/22 07:05 POC Glucose 173 mg/dl (70-99) H 11/21/22 07:52 Estimat Average Glucose 140 mg/dl 11/17/22 05:26 Hemoglobin A1c 6.5 % (4.5-5.6) H 11/17/22 05:26 Calcium 8.8 mg/dl (8.6-10.3) 11/20/22 07:05 Phosphorus 2.8 mg/dl (2.5-4.9) 11/20/22 07:05 Magnesium 1.8 mg/dl (1.7-2.4) 11/20/22 07:05 Total Bilirubin 0.6 mg/dl (0.2-1.0) 11/16/22 14:00 AST 13 U/L (13-39) 11/16/22 14:00 ALT 4 U/L (7-52) L 11/16/22 14:00 Alkaline Phosphatase 59 U/L (34-104) 11/16/22 14:00 Troponin I High Sens 2.6 pg/ml (0-14) 11/16/22 14:00 Total Protein 6.1 gm/dl (6.0-8.3) 11/16/22 14:00 Albumin 3.7 gm/dl (3.4-5.0) 11/16/22 14:00 Globulin 2.4 gm/dl (2.5-4.0) L 11/16/22 14:00 Albumin/Globulin Ratio 1.5 (0.9-2) 11/16/22 14:00 Procalcitonin 0.10 ng/ml (0-0.5) 11/16/22 14:00 TSH 0.157 uIu/ml (0.300-4.500) L 11/16/22 14:00 Free T4 0.93 ng/dl (0.61-1.60) 11/16/22 14:00 Urine Color Yellow 11/16/22 15:54 Urine Appearance Clear (Clear) 11/16/22 15:54 Urine pH 5.5 (4.5-7.5) 11/16/22 15:54 Ur Specific Heidrick > 1.045 (1.000-1.030) H 11/16/22 15:54 Urine Protein 1+ (Negative) H 11/16/22 15:54 Urine Glucose (UA) Negative (Negative) 11/16/22 15:54 Urine Ketones Negative (Negative) 11/16/22 15:54 Urine Blood Negative (Negative) 11/16/22 15:54 Urine Nitrite Negative (Negative) 11/16/22 15:54 Urine Bilirubin Negative (Negative) 11/16/22 15:54 Urine Urobilinogen Negative (Negative) 11/16/22 15:54 Ur Leukocyte Esterase 2+ (Negative) H 11/16/22 15:54 Urine WBC (Auto) >30 /hpf (0-5) H 11/16/22 15:54 Urine RBC (Auto) 5-10 /hpf (0-4) H 11/16/22 15:54 U Hyaline Cast (Auto) 0 /lpf (0-5) 11/16/22 15:54 U Epithel Cells (Auto) 0-5 /lpf (0-5) 11/16/22 15:54 Urine Bacteria (Auto) Negative (Negative) 11/16/22 15:54 Nasal Screen MRSA (PCR) Negative (Negative) 11/17/22 Unknown Adenovirus (PCR) Not Detected (NotDetected) 11/16/22 15:07 B. pertussis DNA (PCR) Not Detected (NotDetected) 11/16/22 15:07 B.parapertussis DNA PCR Not Detected (NotDetected) 11/16/22 15:07 C. pneumoniae DNA (PCR) Not Detected (NotDetected) 11/16/22 15:07 Coronavirus OC43 (PCR) Not Detected (NotDetected) 11/16/22 15:07 Coronavirus HKU1 (PCR) Not Detected (NotDetected) 11/16/22 15:07 Coronavirus 229E (PCR) Not Detected (NotDetected) 11/16/22 15:07 SARS-CoV-2 (PCR) Not Detected (NotDetected) 11/16/22 15:07 Coronavirus NL63 (PCR) Not Detected (NotDetected) 11/16/22 15:07 Human Metapneumovir PCR Not Detected (NotDetected) 11/16/22 15:07 Influenza Type A (PCR) Not Detected (NotDetected) 11/16/22 15:07 Influenza Type B (PCR) Not Detected (NotDetected) 11/16/22 15:07 M. pneumoniae (PCR) Not Detected (NotDetected) 11/16/22 15:07 Parainfluenza 1 (PCR) Not Detected (NotDetected) 11/16/22 15:07 Parainfluenza 2 (PCR) Not Detected (NotDetected) 11/16/22 15:07 Parainfluenza 3 (PCR) Not Detected (NotDetected) 11/16/22 15:07 Parainfluenza 4 (PCR) Not Detected (NotDetected) 11/16/22 15:07 RSV (PCR) Not Detected (NotDetected) 11/16/22 15:07 Entero/Rhino (PCR) Not Detected (NotDetected) 11/16/22 15:[address] 11/16/22 14:05 CT OF THE HEAD WITHOUT CONTRAST CLINICAL HISTORY: Neuro deficit. Confusion. COMPARISON STUDY: MRI of the brain September 22, 2022. Head CT October 13, 2022. TECHNIQUE: Helical axial images of the head were obtained without IV contrast. Automated exposure control was utilized for the study. A dose lowering technique was utilized adhering to the principles of ALARA. FINDINGS: No acute intracranial hemorrhage, midline shift or mass effect is present. The ventricular system is stable. Encephalomalacia within the left frontal lobe is unchanged. A right frontal scalp contusion has nearly completely resolved. The basal cisterns are patent. No extra-axial collections are present. There are no findings to suggest acute dural sinus thrombosis or acute territorial infarct. No significant calvarial abnormalities are present. Visualized portions of the sinuses and mastoid air cells are clear. IMPRESSION: No acute intracranial findings. ACT 112: Negative or not required by law. Electronically signed by: Rj Andrew M.D. 11/16/2022 3:38 PM Head CTA 11/16/22 14:05 CTA ANGIOGRAPHY OF THE HEAD CLINICAL HISTORY: neuro deficit COMPARISON STUDY: CTA of the head September 22, 2022. TECHNIQUE: Helical axial images of the head were obtained following uneventful intravenous administration of 118 cc of Optiray. Sagittal and coronal reconstructions were viewed as well as maximal intensity projections on an independent 3-D workstation. Automated exposure control was utilized for the study. A dose lowering technique was utilized adhering to the principles of ALARA. FINDINGS: No acute intracranial hemorrhage was identified on the head CT which will be reported separately. Left frontal encephalomalacia is unchanged. There is extensive plaque within the right cavernous carotid with severe stenosis. . The right A1 segment is diminutive. There is extensive plaque within the left ca vernous carotid with without significant stenosis. persistence of the left posterior cerebral artery. There is moderate to severe stenosis of the intracranial portion of the right vertebral artery. There is moderate stenosis of the intracranial portion of the left vertebral. Basilar artery is patent. Posterior cerebral arteries are patent. There is no central vessel occlusion. There is no intracranial aneurysm. IMPRESSION: 1. No central vessel occlusion. No intracranial aneurysm. 2. 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 ACT 112: Negative or not required by law. Electronically signed by: Rj Andrew M.D. 11/16/2022 3:47 PM Neck CTA 11/16/22 14:05 CT ANGIOGRAPHY OF THE NECK WITH CONTRAST CLINICAL HISTORY: neuro deficit COMPARISON STUDY: CTA of the neck September 22, 2022. Carotid ultrasound September 08, 2022. Technique: CT angiography of the carotid and vertebral arteries was obtained using Optiray and 3D reconstruction on an independent workstation. NASCET criteria was utilized. Automated exposure control was utilized for the study. A dose lowering technique was utilized adhering to the principles of ALARA. CT DOSE: 1001.70 mGy.cm Findings: Visualized portions of the lung apices are unremarkable. There is no cervical spine fracture. Left lobe thyroid goiter is noted. There is moderate plaque within the proximal right internal carotid artery without significant stenosis. There is mild plaque within the proximal left internal carotid artery without stenosis. The bilateral vertebral arteries are patent. Origins of the vertebral arteries are suboptimally assessed on this exam. There is no dissection or aneurysm within the neck. CTA of the head will be reported separately. IMPRESSION: Mild to moderate plaque within the proximal bilateral cervical internal carotid arteries without stenosis. ACT 112: Negative or not required by law. Electronically signed by: Rj Andrew M.D. 11/16/2022 3:42 PM Brain MRI 11/16/22 18:05 MRI OF THE BRAIN WITHOUT CONTRAST CLINICAL HISTORY: Altered mental status. Evaluate for CVA COMPARISON STUDY: MRI of the brain September 22, [address] and CTA of the head performed earlier today. TECHNIQUE: Utilizing a 1.5 Chrissie magnet and dedicated coil, multiplanar, multiecho imaging of the brain was performed without IV contrast. FINDINGS: The diffusion-weighted sequence is moderately compromised by artifact. However, there is no convincing evidence for acute infarct on this exam. No acute intracranial hemorrhage, midline shift or mass effect is present. Ventricular system is stable. Basal cisterns are patent. There are no extra- axial collections. There is moderate atrophy. Old left frontal lobe infarct is unchanged. White matter T2 hyperintense foci are similar to MRI of September 22, 2022 and suggest small vessel disease. No intracranial masses are identified on this unenhanced exam. IMPRESSION: 1. Diffusion-weighted sequence moderately compromised by artifact. However, no definite acute infarct. 2. No significant change in appearance of the brain since MRI of September 22, 2022. 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 ACT 112: Negative or not required by law. Electronically signed by: Rj Andrew M.D. 11/16/2022 7:14 PM Chest X-Ray 11/17/22 13:58 XR chest 1V portable CLINICAL HISTORY: Tachypnea. COMPARISON STUDY: Chest radiograph November 16, 2022. Chest CT March 29, 2022. FINDINGS: Lung volumes are normal. Lungs are clear. There is no pneumothorax or pleural effusion. Cardiac size is stable. Mediastinal contours are normal. There is no evidence for pulmonary edema. IMPRESSION: No acute cardiopulmonary findings. ACT 112: Negative or not required by law. Electronically signed by: Rj Andrew M.D. 11/17/2022 3:03 PM Wrist X-Ray 11/20/22 15:01 XR wrist RT 2V HISTORY: 82 years-old Female ff up fracture follow-up study in a patient with a subacute distal radial fracture COMPARISON: Right wrist radiographs 10/13/2022 TECHNIQUE: 3 views of the right wrist FINDINGS: Healing subacute intra-articular distal radial fracture demonstrates unchanged alignment. 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 Mild circumferential soft tissue swelling of the wrist. IMPRESSION: Healing subacute intra-articular distal radial fracture demonstrates unchanged alignment. ACT 112: Negative or not required by law. The above report was generated using voice recognition software. It may contain grammatical, syntax or spelling errors. Electronically signed by: Henry Rodney M.D. 11/20/2022 5:[address] angio neck with con Stat CT head/brain wo con Stat 11/16/22 18:05 MRI Brain [MR brain wo con] Routine Pending Results Patient Have Any Pending Studies at Discharge: No Discharge Instructions Given to Patient (Per Discharging Provider) Please refer to accompanying hospital discharge summary for further details. Total Time Total Time Spent Total Time Spent (In Minutes): > 30 minutes
--- NOTE | 2022-11-21 14:39 | Pharmacy Report ---
Pharmacy Glycemic Short Note 2 - Date of Service November 21, 2022 - Glycemic Short BSG Results (Last 24 hours): 11/20/22 11/20/22 11/21/22 16:28 20:13 07:52 POC Glucose 198 H 98 173 H 11/21/22 11:24 POC Glucose 99 OUTPATIENT ANTIDIABETIC REGIMEN: * metformin 1000mg BIDM, Januvia 100mg QAM, glimeperide 1mg daily * HbA1c 6.5% (11/17/22) ASSESSMENT: 11/21/22: * BSGs yesterday were [phone] mg/dl. Fasting BSG is 173 mg/dl today. * Patient received 0 units of basal and 10 units of bolus insulin yesterday. * Basal 6 units of insulin was given this morning. Since patient has not been getting any basal insulin the last few days, will d/c the HS scale ordered and continue with only the basal scale in the morning. * Novolog parameters continued the same. 11/20/22 * BSGs yesterday were [phone] mg/dL. Today's BSGs are 155-157 mg/dL. * Patient received 6 units of Novolog yesterday. * Fasting continues to trend upwards but is still reasonable. Will continue Lantus. Diet appears to have improved. * For Novolog, CR was loosened yesterday. Will also loosen CF to prevent overcorrection. 11/18/22 * BSGs yesterday were [phone] mg/dL. Patient received no insulin. Patient was NPO. * Fasting today is 117 mg/dL. Patient given diet at lunch. * Will continue Novolog. * Since diet ordered, added Lantus 6 units (weight-based stress of 1) if BSG > 150 mg/dL. BACKGROUND * Anni is an 82 YOF presenting for altered mental status, with a history of T2DM. Pharmacy has been consulted for glycemic management * Patient was started on vancomycin and ceftriaxone for possible infection, no additional stressors at this time. * Will hold outpatient medications and begin Novolog scale with parameters at a weight based stress of 2 * Will add a Lantus scale at bedtime for basal needs based off of a weight based stress of 1-2 (0-6-12), PLAN FOR INPATIENT GLYCEMIC CONTROL: * Hold outpatient oral diabetes medications * Basal insulin * Lantus 6 units SQ QAM (hold if BSG < 150 mg/dL) * Bolus insulin * NovoLog per scale ACHS or Q6hrs while NPO * Goal Range: Low 110 mg/dL - High 140 mg/dL * Correction Factor: 35 mg/dL/unit * Nutritional / Prandial insulin per carb ratio of 1 unit per 15 grams CHO consumed
[2022-11-22] MEDS ORDERED: LANTUS PER UNIT CHARGE SC SCH (09:00)
== END 2022-11-21 17:37 | DRG 689 ==
LOC: ED 13:49 → SUATTDRO 18:34 → 2W 18:34

== ENCOUNTER 2022-12-09 23:41 | Inpatient (IN) ==
[2022-12-09] MEDS ORDERED: IOVERSOL 350 MG 125mL Prefilled Syringe IV ONE (23:56)
--- NOTE | 2022-12-10 00:10 | CT Scan Report ---
Exam(s): CT HEAD Without Contrast EXAM: CT Head Without Intravenous Contrast CLINICAL HISTORY: Reason for exam: neuro deficit, acute stroke suspected. TECHNIQUE: Axial computed tomography images of the head/brain without intravenous contrast. CTDI is 36.46 mGy and DLP is 624.41 mGy-cm. Automated exposure control was utilized for the study. A dose lowering technique was utilized adhering to the principles of ALARA. COMPARISON: CT head 11/16/2022. FINDINGS: Brain: Global parenchymal volume loss with chronic microvascular ischemic changes and chronic left frontal lobe infarction. No hemorrhage. Ventricles: No ventriculomegaly. Bones/joints: Chronic left lamina papyracea fracture. Soft tissues: Unremarkable. Sinuses: Unremarkable as visualized. Mastoid air cells: Unremarkable as visualized. No mastoid effusion. Orbits: The lateral lens replacement. IMPRESSION: 1. No intracranial hemorrhage or evidence of acute large territorial infarction. 2. Global parenchymal volume loss with chronic microvascular ischemic changes and chronic left frontal lobe infarction. Communications: Call Doctor Stroke Electronically signed by: Wilfredo Segura MD 12/10/22 00:10 AM
[2022-12-10 00:11] LABS: Basophils # (auto) 0.02 K/uL (0-0.2); Basophils % (auto) 0.4 %; Eosinophils % (auto) 3.7 %; Hematocrit (blood only) 28.3 % (37.0-47.0); Hemoglobin 8.9 g/dl (12.0-16.0); Immature Granulocytes # (auto) 0.02 K/uL (0.01-0.20); Immature Granulocytes % (auto) 0.4 %; Lymphocytes # (auto) 1.52 K/uL (1.2-3.4); Mean Corpuscular Hemoglobin 28.3 pg (25.0-34.0); Mean Corpuscular Hgb Conc 31.4 g/dL (32.0-36.0); Mean Corpuscular Volume 90.1 fL (80.0-100.0); Mean Platelet Volume 9.3 fL (9.4-12.4); Monocytes # (auto) 0.53 K/uL (0.11-0.59); Monocytes % (auto) 9.8 %; Neutrophils # (auto) 3.13 K/uL (1.40-6.50); Neutrophils % (auto) 57.7 %; Platelet Count 270 K/uL (130-400); RDW Coefficient of Variation 14.7 % (11.5-14.5); RDW Standard Deviation 48.4 fL (36.4-46.3); Red Blood Count 3.14 M/uL (4.20-5.40); White Blood Count 5.42 K/ul (4.8-10.8)
[2022-12-10] MEDS ORDERED: SODIUM CHLORIDE 0.9% 1000ML 1,000 ML IV ONE (00:13)
--- NOTE | 2022-12-10 00:15 | CT Scan Report ---
Exam(s): CTA NECK With Contrast IV Amt: 116 ML OPTIRAY 350 EXAM: CT Angiography Neck With Intravenous Contrast CLINICAL HISTORY: Reason for exam: neuro deficit, acute stroke suspected. TECHNIQUE: Routine carotid CT angiography protocol was performed with intravenous contrast. NASCET criteria using the distal ICAs for comparison were used for evaluation of stenoses. CTDI is 31.52 mGy and DLP is 468.76 mGy-cm. Automated exposure control was utilized for the study. A dose lowering technique was utilized adhering to the principles of ALARA. MIP reconstructed images were created and reviewed. CONTRAST: Patient received 116 ML OPTIRAY 350 of IV contrast COMPARISON: None. FINDINGS: VASCULATURE: Right common carotid artery: Unremarkable. No occlusion or significant stenosis. No dissection. Right internal carotid artery: Unremarkable. Extracranial segment is patent with no occlusion or significant stenosis. No dissection. Right external carotid artery: Unremarkable. No occlusion. Right vertebral artery: Unremarkable. No occlusion or significant stenosis. No dissection. Left common carotid artery: Unremarkable. No occlusion or significant stenosis. No dissection. Left internal carotid artery: Unremarkable. Extracranial segment is patent with no occlusion or significant stenosis. No dissection. Left external carotid artery: Unremarkable. No occlusion. Left vertebral artery: Unremarkable. No occlusion or significant stenosis. No dissection. Other vasculature: Atherosclerosis of the carotid bifurcations. Aorta: Four-vessel aortic arch. NECK: Bones/joints: Degenerative changes in the cervical spine. Soft tissues: Unremarkable. Thyroid: Multinodular thyroid gland. Lung apices: Clear. CAROTID STENOSIS REFERENCE USING NASCET CRITERIA: % ICA stenosis = (1 - narrowest ICA diameter/diameter of distal cervical ICA) x 100. Mild - <50% stenosis. Moderate - 50-69% stenosis. Severe - 70-94% stenosis. Near occlusion - 95-99% stenosis. Occluded - 100% stenosis. IMPRESSION: No dissection, pseudoaneurysm, or hemodynamically significant stenosis of the carotid or vertebral arteries. Communications: Call Doctor Stroke Electronically signed by: Wilfredo Segura MD 12/10/22 00:14 AM
--- NOTE | 2022-12-10 00:19 | Emergency Department Note ---
Impression & Plan Encephalopathy, Parkinson's disease, Dementia, History of CVA (cerebrovascular accident) ED Provider Note NAME: AISHA BENITEZ AGE: 82 SEX: F ARRIVES VIA: Ambulance INFORMANT: Patient ED PROVIDER(S): Dante Snowden MD CHIEF COMPLAINT: Change in mental status. PLAN: Disposition: Admit MEDICAL DECISION MAKING: The patient is an 82-year-old woman with a past medical history of Parkinson disease, dementia, history of CVA on Plavix who presents to the emergency department via EMS for stroke alert due to change in mental status where the patient's sister to care for the patient noted that she was not waking up with when they woke her at 10:30 PM to take her medications. They report that she was last normal at 830 when she went to bed and it is typical for them to wake her up after 1-2 hours of sleep did not take her medications and she usually does well and you will have a bowl of ice cream before taking her medications and going back to sleep. The patient has been seen in this facility most recently in October but also twice in August for similar presentations. Symptoms have been attributed to sleep interruption in the past as well as encephalopathy related to UTI. The patient does have imaging demonstrating prior left frontal lobe infarction and and records also document history of cerebellar infarct. The patient's sisters at the bedside reports she had been complaining of upper abdominal pain for the past couple of days. She also complained of a headache it seemed after they had attempted to wake her up tonight. Otherwise they deny any recent illness including fevers, chills, cough congestion, or symptoms. Stroke alert was activated in the field per my discussion with EMS crew on medical command call. She was taken directly to CT for imaging. The patient is beyond the 3-hour window for TNK. On arrival to the critical care bay the patient appears somnolent but awakens to loud voice and will open her eyes to command and softly say her name upon request but initially did not follow commands to move extremities. Blood pressure 160s/80s and vital signs otherwise stable. She appears clinically dry. EKG without overt acute ischemia. CT of the head without contrast was negative for ICH or acute large territorial infarction. Note is made of global parenchymal volume loss, chronic microvascular ischemic changes and chronic left frontal lobe infarction. I did discuss the patient's presentation with [facility] telestroke neurology, Dr. Andrews. He agreed to evaluate the patient via the telestroke terminal. Upon evaluation telestroke terminal patient's symptoms were rapidly improving where she was more awake and following some commands and moving extremities. CTA of the head and neck assessment completed and demonstrates extensive cerebrovascular disease which is stable from previous imaging in October without large vessel occlusion. Appreciate telestroke consultation and recommendations. We agree that there is no indication for extended window TNK at this time as symptoms are improving and suspected to be related to encephalopathy related to infectious or metabolic cause as has been on her prior presentations. Central etiology/stroke is considered less likely and MRI not necessary at this time. Further agrees that sleep disruption may contribute to patient's symptoms as well. Chest x-ray negative for acute cardiopulmonary process per my preliminary review. WBC and platelets within normal limits. H/H 8.9/20.3 decreased from 10.1/31.7 several weeks ago and is nonspecific. Chemistry without metabolic acidosis. BUNs/creatinine>20 consistent with the patient's clinically dry appearance. However BUN is within normal limits. LFTs unremarkable. High-sensitivity troponin 3.5, within normal limits. UA without convincing evidence of infection. Given the patient's change in mental status from her baseline patient was referred to hospital service for further evaluation and management. Case was discussed with Dr. Farmer, [facility] who will evaluate the patient for admission. Triage Nursing notes reviewed and agree them. Prior/outside medical records reviewed Vital Signs: reviewed Differential diagnosis: Infection, dehydration, metabolic abnormality, hypo/hyperglycemia, electrolyte disturbance, anemia, hypoxia, cardiac sources, intracerebral event, toxicologic, neurologic, as well as other pathologies. ER treatment provided: See below. Diagnostics interpreted by me: ECG: Sinus rhythm, 70 bpm, fusion complexes, no overt ST elevation or depression, QTc 412, cures 92. Cardiac Monitoring: An order for continuous cardiac monitoring was placed and demonstrated sinus rhythm, 70 bpm, fusion complexes. Laboratory studies: See below Imaging studies: See below Consultation(s): [place]. Andrews, [facility] [place]. Farmer, [facility]. HPI: The patient is an 82-year-old woman with a past medical history of Parkinson disease, dementia, history of CVA on Plavix who presents to the emergency department via EMS for stroke alert due to change in mental status where the patient's sister to care for the patient noted that she was not waking up with when they woke her at 10:30 PM to take her medications. They report that she was last normal at 830 when she went to bed and it is typical for them to wake her up after 1-2 hours of sleep did not take her medications and she us ually does well and you will have a bowl of ice cream before taking her medications and going back to sleep. The patient has been seen in this facility most recently in October but also twice in August for similar presentations. Symptoms have been attributed to sleep interruption in the past as well as encephalopathy related to UTI. The patient does have imaging demonstrating prior left frontal lobe infarction and and records also document history of cerebellar infarct. The patient's sisters at the bedside reports she had been complaining of upper abdominal pain for the past couple of days. She also complained of a headache it seemed after they had attempted to wake her up tonight. Otherwise they deny any recent illness including fevers, chills, cough congestion, or symptoms. Stroke alert was activated in the field per my discussion with EMS crew on medical command call. She was taken directly to CT for imaging. ROS: See above HPI for pertinent positives & negatives. A total of 10 systems reviewed and were otherwise negative. VITALS:See Below PHYSICAL EXAMINATION: GENERAL: Somnolent-appearing, in no distress HENT: Normocephalic, atraumatic. Oropharynx with dry mucous membranes and otherwise unremarkable. EYES: Normal conjunctiva. Sclera non-icteric. EOMI. No nystamgus. PEARRL. NECK: Supple. No nuchal rigidity. FROM. No JVD. RESPIRATORY: Clear to auscultation. CARDIAC: Regular rate, normal rhythm. Extremities warm and well perfused. Pulses equal. ABDOMEN: Soft, non-distended. No tenderness to palpation. No rebound or guarding. No masses. RECTAL: Deferred. MUSCULOSKELETAL: Chest examination reveals no tenderness. The back is symmetrical on inspection without obvious abnormality. There is no CVA tenderness to palpation. No joint edema. LOWER EXTREMITIES: Calves are equal size bilaterally and non-tender. No edema. No discoloration. NEURO: Somnolent but awakens to loud voice and will open her eyes to command and softly say her name upon request but initially did not follow commands to move extremities. SKIN: No rash or jaundice noted. ED COURSE: Critical Care: I have personally spent greater than 35 minutes of critical care time in the direct management of this patient. This includes bedside care, interpretation of diagnostic studies, and testing, discussion with consultants, patient, and family members, and other required patient management activities. This 35 minutes is in excess of all separately billable procedures. Dante Snowden MD Past Med/Surg History Medical History Anxiety Asthma CAD (coronary artery disease) COPD (chronic obstructive pulmonary disease) COVID-19 Delirium Dementia Diabetes mellitus, type II Generalized weakness GERD (gastroesophageal reflux disease) History of TIA (transient ischemic attack) Hyperlipidemia Hypertension Multiple fractures of ribs of left side Parkinson's disease Transient confusion Surgical History Hx of appendectomy S/P cholecystectomy Stented coronary artery Family History Other Diabetes Heart disease Hypertension Social History Smoking Status: Never smoker Tobacco Type: Cigarettes Cigarettes Per Day: 1 pack/day; Second Hand Exposure: No; Do You Dip or Chew Tobacco: No; Hx Alcohol Use: No Hx Substance Use: No Preferred Language: Yi Communication Ability: Impaired Communication Ability Comment: memory loss, confusion at times Visual Impairment: Limited Hearing Ability: Normal Set And Exhibit Designer Required: No Beliefs That Will Affect Care: None marital status: Single Current Living Situation: Family and Rehab Current Living Situation Comment: Lives with sister in rehab facility current occupational status: retired 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[place], [place] How many Children do You have: 0 Feels Safe at Home: Yes Diet: regular caffeine: Yes (rare) during the past year weight has: remained stable Assistive Devices: Nebulizer and Walker Allergies Allergies Allergy/AdvReac Type Severity Reaction Status Date / Time fluconazole Allergy Severe hives,rash,respiratory Verified 12/09/22 23:53 difficulty fluticasone Allergy Severe SHORT OF Verified 12/09/22 23:53 BREATH/RASH hydrochlorothiazide Allergy Severe Rash Verified 12/09/22 23:53 triamterene Allergy Severe Rash Verified 12/09/22 23:53 erythromycin base Allergy Intermediate RASH/NAUSEA Verified 12/09/22 23:53 /VOMITING isosorbide Allergy Intermediate Headache Verified 12/09/22 23:53 NSAIDS (Non-Steroidal Allergy Intermediate hives,rash Verified 12/09/22 23:53 Anti-Inflamma amifostine Allergy Unknown Unknown Verified 12/09/22 23:53 lisinopril Allergy Unknown Unknown Verified 12/09/22 23:53 Penicillins Allergy Unknown Unknown Verified 12/09/22 23:53 ethyl alcohol AdvReac Unknown Unknown Verified 12/09/22 23:53 Home Meds Home Medications Medication Instructions Recorded Confirmed albuterol sulfate 90 mcg/actuation 2 puff inhalation Q6H PRN 02/06/22 12/10/22 aerosol inhaler Shortness Of Breath Or Wheezing carbidopa 25 mg-levodopa 100 mg See Rx Instructions .Route .COMPLEX 02/06/22 12/10/22 tablet duloxetine 30 mg capsule,delayed 30 mg PO BID 02/06/22 12/10/22 release glimepiride 1 mg tablet 1 mg PO DAILY 02/06/22 12/10/22 losartan 25 mg tablet 25 mg PO QAM 02/06/22 12/10/22 metformin 1,000 mg tablet 1,000 mg PO BIDM 02/06/22 12/10/22 rivastigmine 9.5 mg/24 hour 1 patch topical QAM 02/06/22 12/10/22 transdermal patch umeclidinium 62.5 mcg/actuation 1 inh inhalation QAM 02/06/22 12/10/22 blister powder for inhalation (Incruse Ellipta) mirabegron 50 mg tablet,extended 50 mg PO QAM 07/19/22 12/10/22 release 24 hr (Myrbetriq) sitagliptin phosphate 100 mg 100 mg PO QAM 07/19/22 12/10/22 tablet (Januvia) budesonide-formoterol HFA 160 2 puff inhalation BID 10/13/22 12/10/22 mcg-4.5 mcg/actuation aerosol inhaler rosuvastatin 5 mg tablet 5 mg PO DAILY 10/13/22 12/10/22 bisoprolol 2.5 1 tab PO DAILY 11/16/22 12/10/22 mg-hydrochlorothiazide 6.25 mg tablet ipratropium 0.5 mg-albuterol 3 mg 3 ml inhalation QID 11/16/22 12/10/22 (2.5 mg base)/3 mL nebulization soln acetaminophen 500 mg tablet 500 mg PO BID PRN Pain 12/10/22 12/10/22 (Tylenol Extra Strength) codeine 10 mg-guaifenesin 100 mg/5 5 ml PO Q4H PRN Cough 12/10/22 12/10/22 mL oral liquid (Guaifenesin AC) nitroglycerin 0.4 mg sublingual 0.4 mg sublingual DIRECTED PRN 12/10/22 12/10/22 tablet (Nitrostat) Chest Pain Previous Rx's Medication Instructions Recorded clopidogrel 75 mg tablet 75 mg PO QAM #30 tabs 09/12/22 Results & Data (ED) Vital Signs Vital Signs - 24 hr 12/09/22 23:54 12/10/22 00:08 12/10/22 00:17 Pulse Rate 74 67 72 Respiratory Rate 16 16 21 Respiratory Effort / Characteristics Non-Labored Spontaneous Respiratory Depth Normal Respiratory Pattern Regular Blood Pressure 169/87 H 130/62 166/63 H Blood Pressure Mean 114 84 97 Blood Pressure Position Semi-fowlers Pulse Oximetry 97 95 96 Oxygen Delivery Method Room Air Room Air Room Air Sepsis Recent Fever Within 48 Hours No Sepsis New/Unexplained Change in Mental Status N/A Sepsis Action Taken by Nursing No Action Required 12/10/22 00:45 Pulse Rate 72 Respiratory Rate 21 Respiratory Effort / Characteristics Respiratory Depth Respiratory Pattern Blood Pressure 166/67 H Blood Pressure Mean 100 Blood Pressure Position Pulse Oximetry 98 Oxygen Delivery Method Room Air Sepsis Recent Fever Within 48 Hours Sepsis New/Unexplained Change in Mental Status Sepsis Action Taken by Nursing Laboratory Data Attestation: I reviewed the patient's lab results. 12/09/22 23:55 12/09/22 23:55 Lab Results 12/09/22 12/09/22 12/09/22 Range/Units 23:55 23:55 23:55 WBC 5.42 (4.8-10.8) K/ul RBC 3.14 L (4.20-5.40) M/uL Hgb 8.9 L (12.0-16.0) g/dl Hct 28.3 L (37.0-47.0) % MCV 90.1 (80.0-100.0) fL MCH 28.3 (25.0-34.0) pg MCHC 31.4 L (32.0-36.0) g/dL RDW Std Deviation 48.4 H (36.4-46.3) fL RDW Coeff of Jayden 14.7 H (11.5-14.5) % Plt Count 270 (130-400) K/uL MPV 9.3 L (9.4-12.4) fL Immature Gran % (Auto) 0.4 % Neut % (Auto) 57.7 % Lymph % (Auto) 28.0 % [place] % (Auto) 9.8 % Eos % (Auto) 3.7 % Baso % (Auto) 0.4 % Neut # (Auto) 3.13 (1.40-6.50) K/uL Lymph # (Auto) 1.52 (1.2-3.4) K/uL [place] # (Auto) 0.53 (0.11-0.59) K/uL Eos # (Auto) 0.20 (0-0.50) K/uL Baso # (Auto) 0.02 (0-0.2) K/uL Immature Gran # (Auto) 0.02 (0.01-0.20) K/uL PT 11.9 (9.0-12.0) Seconds INR 1.1 (0.9-1.1) APTT 29.5 (21.0-31.0) Seconds PTT Ratio 1.0 Sodium (136-145) mmol/L Potassium (3.5-5.1) mmol/L Chloride (98-107) mmol/L Carbon Dioxide (21-32) mmol/L Anion Gap (3-11) BUN (6-23) mg/dl Creatinine (0.6-1.2) mg/dl Est Cr Clr Drug Dosing Est GFR ( Amer) ml/min Est GFR (Non-Af Amer) ml/min BUN/Creatinine Ratio (10-20) Glucose (70-99(Fasting)) mg/dl POC Glucose (70-99) mg/dl Calcium (8.6-10.3) mg/dl Phosphorus (2.5-4.9) mg/dl Magnesium (1.7-2.4) mg/dl Total Bilirubin (0.2-1.0) mg/dl AST (13-39) U/L ALT (7-52) U/L Alkaline Phosphatase (34-104) U/L Troponin I High Sens (0-14) pg/ml Total Protein (6.0-8.3) gm/dl Albumin (3.4-5.0) gm/dl Globulin (2.5-4.0) gm/dl Albumin/Globulin Ratio (0.9-2) Urine Color Urine Appearance (Clear) Urine pH (4.5-7.5) Ur Specific [place] (1.000-1.030) Urine Protein (Negative) Urine Glucose (UA) (Negative) Urine Ketones (Negative) Urine Blood (Negative) Urine Nitrite (Negative) Urine Bilirubin (Negative) Urine Urobilinogen (Negative) Ur Leukocyte Esterase (Negative) Blood Type O Negative Antibody Screen NEGATIVE 12/09/22 12/09/22 12/10/22 Range/Units 23:55 23:56 00:38 WBC (4.8-10.8) K/ul RBC (4.20-5.40) M/uL Hgb (12.0-16.0) g/dl Hct (37.0-47.0) % MCV (80.0-100.0) fL MCH (25.0-34.0) pg MCHC (32.0-36.0) g/dL RDW Std Deviation (36.4-46.3) fL RDW Coeff of Jayden (11.5-14.5) % Plt Count (130-400) K/uL MPV (9.4-12.4) fL Immature Gran % (Auto) % Neut % (Auto) % Lymph % (Auto) % [place] % (Auto) % Eos % (Auto) % Baso % (Auto) % Neut # (Auto) (1.40-6.50) K/uL Lymph # (Auto) (1.2-3.4) K/uL [place] # (Auto) (0.11-0.59) K/uL Eos # (Auto) (0-0.50) K/uL Baso # (Auto) (0-0.2) K/uL Immature Gran # (Auto) (0.01-0.20) K/uL PT (9.0-12.0) Seconds INR (0.9-1.1) APTT (21.0-31.0) Seconds PTT Ratio Sodium 136 (136-145) mmol/L Potassium 3.9 (3.5-5.1) mmol/L Chloride 103 (98-107) mmol/L Carbon Dioxide 30 (21-32) mmol/L Anion Gap 3 (3-11) BUN 23 (6-23) mg/dl Creatinine 1.00 (0.6-1.2) mg/dl Est Cr Clr Drug Dosing Not Reportable Est GFR ( Amer) 61.2 ml/min Est GFR (Non-Af Amer) 52.8 ml/min BUN/Creatinine Ratio 23.0 H (10-20) Glucose 114 H (70-99(Fasting)) mg/dl POC Glucose 127 H (70-99) mg/dl Calcium 8.3 L (8.6-10.3) mg/dl Phosphorus 3.5 (2.5-4.9) mg/dl Magnesium 1.8 (1.7-2.4) mg/dl Total Bilirubin 0.3 (0.2-1.0) mg/dl AST 11 L (13-39) U/L ALT 10 (7-52) U/L Alkaline Phosphatase 52 (34-104) U/L Troponin I High Sens 3.5 (0-14) pg/ml Total Protein 4.8 L (6.0-8.3) gm/dl Albumin 3.1 L (3.4-5.0) gm/dl Globulin 1.7 L (2.5-4.0) gm/dl Albumin/Globulin Ratio 1.8 (0.9-2) Urine Color Yellow Urine Appearance Clear (Clear) Urine pH 6.5 (4.5-7.5) Ur Specific [place] 1.031 H (1.000-1.030) Urine Protein Negative (Negative) Urine Glucose (UA) Negative (Negative) Urine Ketones Trace H (Negative) Urine Blood Negative (Negative) Urine Nitrite Negative (Negative) Urine Bilirubin Negative (Negative) Urine Urobilinogen Negative (Negative) Ur Leukocyte Esterase Negative (Negative) Blood Type Antibody Screen Administered Medications Magnesium Sulfate/Dextrose (Magnesium Sulfate / D5w) 1 gm in 100 mls @ 50 mls/hr IV ONE ONE Stop: 12/10/22 03:22 Last Admin: 12/10/22 02:03 Dose: 50 mls/hr Documented By: SAVANAH Discontinued Medications Sodium Chloride (Nss 1000ml) 1,000 mls @ 999 mls/hr IV .Q1H1M ONE Stop: 12/10/22 01:13 Last Infusion: 12/10/22 01:58 Dose: 0 mls/hr Documented By: Admin: 12/10/22 00:22 Dose: 999 mls/hr Documented By: MARÍA ELENA Ioversol (Ioversol 350 Mg 125ml Prefilled Syringe) 125 ml IV ONCE ONE Stop: 12/09/22 23:57 Last Admin: 12/09/22 23:56 Dose: 116 ml Documented By: MERCEDEZ Imaging Data Radiologist's Impression: Head CT 12/09/22 23:38 CR Exam(s): CT HEAD Without Contrast EXAM: CT Head Without Intravenous Contrast CLINICAL HISTORY: Reason for exam: neuro deficit, acute stroke suspected. TECHNIQUE: Axial computed tomography images of the head/brain without intravenous contrast. CTDI is 36.46 mGy and DLP is 624.41 mGy-cm. Automated exposure control was utilized for the study. A dose lowering technique was utilized adhering to the principles of ALARA. COMPARISON: CT head 11/16/2022. FINDINGS: Brain: Global parenchymal volume loss with chronic microvascular ischemic changes and chronic left frontal lobe infarction. No hemorrhage. Ventricles: No ventriculomegaly. Bones/joints: Chronic left lamina papyracea fracture. Soft tissues: Unremarkable. Sinuses: Unremarkable as visualized. Mastoid air cells: Unremarkable as visualized. No mastoid effusion. Orbits: The lateral lens replacement. IMPRESSION: 1. No intracranial hemorrhage or evidence of acute large territorial infarction. 2. Global parenchymal volume loss with chronic microvascular ischemic changes and chronic left frontal lobe infarction. Communications: Call Doctor Stroke Electronically signed by: Wilfredo Segura MD 12/10/22 00:10 AM Head CTA 12/09/22 23:38 CR Exam(s): CTA HEAD With Contrast IV Amt: 116 ML OPTIRAY 350 EXAM: CT Angiography Head With Intravenous Contrast CLINICAL HISTORY: Reason for exam: neuro deficit, acute stroke suspected. TECHNIQUE: Axial computed tomographic angiography images of the head with intravenous contrast. CTDI is 36.43 mGy and DLP is 624.41 mGy-cm. Automated exposure control was utilized for the study. A dose lowering technique was utilized adhering to the principles of ALARA. MIP reconstructed images were created and reviewed. CONTRAST: Patient received 116 ML OPTIRAY 350 of IV contrast COMPARISON: CT head angiogram 11/16/2022. FINDINGS: Right internal carotid artery: No acute findings. Intracranial segment is patent with no significant stenosis. No aneurysm. Right anterior cerebral artery: Unremarkable. No occlusion or significant stenosis. No aneurysm. Right middle cerebral artery: Unremarkable. No occlusion or significant stenosis. No aneurysm. Right posterior cerebral artery: Mild stenosis of the bilateral posterior cerebral arteries. No aneurysm. Right vertebral artery: Atherosclerosis resulting in severe stenosis of the V4 segment of the right vertebral artery and moderate stenosis of the V4 segment of the left vertebral artery. Left internal carotid artery: No acute findings. Intracranial segment is patent with no significant stenosis. No aneurysm. Left anterior cerebral artery: Severe stenosis of the A2 segment of the left anterior cerebral artery. No aneurysm. Left middle cerebral artery: Unremarkable. No occlusion or significant stenosis. No aneurysm. Left posterior cerebral artery: origin of the left posterior cerebral artery. Left vertebral artery: See above. Basilar artery: Unremarkable. No occlusion or significant stenosis. No aneurysm. Other vasculature: Severe atherosclerosis of the cavernous and supraclinoid segments of the internal carotid arteries which results in severe stenosis of the right supraclinoid internal carotid artery and moderate stenosis of the left supraclinoid internal carotid artery. Brain: Mild stenosis of the M1 segments of the middle cerebral arteries, left greater than right. IMPRESSION: 1. No large vessel occlusion. 2. Atherosclerosis resulting in severe stenosis of the V4 segment of the right vertebral artery and moderate stenosis of the V4 segment of the left vertebral artery. 3. Severe stenosis of the A2 segment of the left anterior cerebral artery. 4. Mild stenosis of the M1 segments of the middle cerebral arteries, left greater than right. 5. Mild stenosis of the bilateral posterior cerebral arteries. Communications: Call Doctor Stroke Electronically signed by: Wilfredo Segura MD 12/10/22 00:18 AM Neck CTA 12/09/22 23:38 CR Exam(s): CTA NECK With Contrast IV Amt: 116 ML OPTIRAY 350 EXAM: CT Angiography Neck With Intravenous Contrast CLINICAL HISTORY: Reason for exam: neuro deficit, acute stroke suspected. TECHNIQUE: Routine carotid CT angiography protocol was performed with intravenous contrast. NASCET criteria using the distal ICAs for comparison were used for evaluation of stenoses. CTDI is 31.52 mGy and DLP is 468.76 mGy-cm. Automated exposure control was utilized for the study. A dose lowering technique was utilized adhering to the principles of ALARA. MIP reconstructed images were created and reviewed. CONTRAST: Patient received 116 ML OPTIRAY 350 of IV contrast COMPARISON: None. FINDINGS: VASCULATURE: Right common carotid artery: Unremarkable. No occlusion or significant stenosis. No dissection. Right internal carotid artery: Unremarkable. Extracranial segment is patent with no occlusion or significant stenosis. No dissection. Right external carotid artery: Unremarkable. No occlusion. Right vertebral artery: Unremarkable. No occlusion or significant stenosis. No dissection. Left common carotid artery: Unremarkable. No occlusion or significant stenosis. No dissection. Left internal carotid artery: Unremarkable. Extracranial segment is patent with no occlusion or significant stenosis. No dissection. Left external carotid artery: Unremarkable. No occlusion. Left vertebral artery: Unremarkable. No occlusion or significant stenosis. No dissection. Other vasculature: Atherosclerosis of the carotid bifurcations. Aorta: Four-vessel aortic arch. NECK: Bones/joints: Degenerative changes in the cervical spine. Soft tissues: Unremarkable. Thyroid: Multinodular thyroid gland. Lung apices: Clear. CAROTID STENOSIS REFERENCE USING NASCET CRITERIA: % ICA stenosis = (1 - narrowest ICA diameter/diameter of distal cervical ICA) x 100. Mild - <50% stenosis. Moderate - 50-69% stenosis. Severe - 70-94% stenosis. Near occlusion - 95-99% stenosis. Occluded - 100% stenosis. IMPRESSION: No dissection, pseudoaneurysm, or hemodynamically significant stenosis of the carotid or vertebral arteries. Communications: Call Doctor Stroke Electronically signed by: Wilfredo Segura MD 12/10/22 00:14 AM Discharge Plan Visit Data Chief Complaint: Stroke Alert ED Provider: Dante Snowden Discharge Problem: Encephalopathy, Parkinson's disease, Dementia, History of CVA (cerebrovascular accident) Forms Stand Alone Forms: My [facility] Prescriptions Prescriptions: No Action Myrbetriq 50 mg tablet extended release 24 hr 50 mg PO QAM Januvia 100 mg tablet 100 mg PO QAM rosuvastatin 5 mg Tablet 5 mg PO DAILY budesonide-formoterol 160-4.5 mcg/actuation Hfa Aerosol Inhaler 2 puff INHALATION BID Rx Instructions: 0830 & 1630 acetaminophen [Tylenol Extra Strength] 500 mg Tablet 500 mg PO BID PRN (Reason: Pain) nitroglycerin [Nitrostat] 0.4 mg Tablet, Sublingual 0.4 mg sublingual DIRECTED PRN (Reason: Chest Pain) codeine-guaifenesin [Guaifenesin AC] 10-100 mg/5 mL Liquid 5 ml PO Q4H PRN (Reason: Cough) metformin 1,000 mg tablet 1,000 mg PO BIDM Rx Instructions: 0830 & 1630 losartan 25 mg tablet 25 mg PO QAM albuterol sulfate 90 mcg/actuation HFA aerosol inhaler 2 puff INHALATION Q6H PRN (Reason: Shortness Of Breath Or Wheezing) duloxetine 30 mg capsule,delayed release(DR/EC) 30 mg PO BID rivastigmine 9.5 mg/24 hour patch 24 hour 1 patch topical QAM Rx Instructions: REMOVE OLD PATH BEFORE REPLACING NEW ONE. Incruse Ellipta 62.5 mcg/actuation blister with device 1 inh INHALATION QAM glimepiride 1 mg Tablet 1 mg PO DAILY carbidopa-levodopa 25-100 mg tablet See Rx Instructions .ROUTE .COMPLEX Rx Instructions: TAKES 2 TABS QAM, THEN 1.5 TABS AT 1200, 1600 & 2000 clopidogrel 75 mg Tablet 75 mg PO QAM Qty: 30 0RF ipratropium-albuterol 0.5 mg-3 mg(2.5 mg base)/3 mL solution for nebulization 3 ml INHALATION QID bisoprolol-hydrochlorothiazide 2.5-6.25 mg tablet 1 tab PO DAILY Referrals Referrals: PCP,NO [Physician] -
[2022-12-10 00:29] LABS: Alanine Aminotransferase 10 U/L (7-52); Albumin Globulin Ratio 1.8 (0.9-2); Albumin Level 3.1 gm/dl (3.4-5.0); Alkaline Phosphatase 52 U/L (34-104); Anion Gap 3 (3-11); Aspartate Aminotransferase 11 U/L (13-39); Bilirubin,Total 0.3 mg/dl (0.2-1.0); Blood Urea Nitrogen 23 mg/dl (6-23); Calcium 8.3 mg/dl (8.6-10.3); Carbon Dioxide 30 mmol/L (21-32); Chloride 103 mmol/L (98-107); Est GFR (African American) 61.2 ml/min; Est GFR (Non-African American) 52.8 ml/min; Globulin 1.7 gm/dl (2.5-4.0); Glucose 114 mg/dl (70-99(Fasting)); Magnesium 1.8 mg/dl (1.7-2.4); Phosphorus 3.5 mg/dl (2.5-4.9); Potassium 3.9 mmol/L (3.5-5.1); Sodium 136 mmol/L (136-145); Total Protein 4.8 gm/dl (6.0-8.3)
[2022-12-10 00:35] LABS: Troponin I High Sensitivity 3.5 pg/ml (0-14)
[2022-12-10 00:38] LABS: INR 1.1 (0.9-1.1); Partial Thromboplastin Time 29.5 Seconds (21.0-31.0); Prothrombin Time 11.9 Seconds (9.0-12.0)
[2022-12-10 00:47] LABS: Appearance Urine Clear (Clear); Bilirubin Urine Negative (Negative); Blood Urine Negative (Negative); Color Urine Yellow; Glucose Urine UA Negative (Negative); Ketones Urine Trace (Negative); Leukocyte Esterase Urine Negative (Negative); Nitrite Urine Negative (Negative); Protein Urine Negative (Negative); Specific Gravity Urine 1.031 (1.000-1.030); Urobilinogen Urine Negative (Negative); pH Urine 6.5 (4.5-7.5)
[2022-12-10] MEDS ORDERED: MAGNESIUM SULFATE / D5W 1 GM/100 ML BAG IV ONE (01:23)
--- NOTE | 2022-12-10 02:54 | History & Physical Report ---
Date of Service December 10, 2022 Assessment & Plan (1) Episode of unresponsiveness: Plan: Recurrent episodes hx recurrent CVA, recent cerebellar CVA hx Parkinson's dementia Episodic unresponsiveness may be sleep cycle related especially given patient's Parkinson's as per inpatient Neurology consult from August 2022 hx CAD status post stent asthma/COPD as per records, stable hypertension, stable hyperlipidemia on statin Rx DM2 on oral medications, well-controlled as of recent hemoglobin A1c of 6.5 last month Acute on chronic anemia, hemoglobin lower than baseline, FOBT done at the ER was negative past tobacco abuse. OBS Medical telemetry Neurology consult RE episodic unresponsiveness, history of Parkinson's dementia (Patient family requesting to talk with specialist because they have multiple questions regarding patient's episode of unresponsiveness and Parkinson's dementia diagnosis.) Follow H&H, transfuse RBC if hemoglobin less than 8 and or for symptomatic anemia Basal bolus insulin ISS BG goal 1 10-1 40, carb count coverage PT OT eval DVT prophylaxis per Lovenox subcu Full code as per sisters. Patient sisters requesting updates for providers. Itzel Champ, contact #[phone]. Ms. Jolanta Vail, contact #[phone]. Text document was generated using [employer] voice recognition software. It may contain grammatical or spelling errors. Kindly contact undersigned for clarification of any documentation item in question. History of Present Illness Chief Complaint: Unresponsiveness Primary Care Provider: Jag Stover MD History obtained from family and records. Unable to obtain history from patient secondary to dementia Medical history significant for CAD status post stent, recurrent CVA, asthma/COPD as per records, hypertension, hyperlipidemia, DM2 on oral medications, Parkinson's disease with cognitive impairment, chronic anemia (baseline hemoglobin 10-11), past tobacco abuse. Six admissions for 2022. Last confinement last month for confusion secondary to UTI. Patient discharged to rehab facility before going home. Patient unarousable at home for hours last night. No witnessed seizures. Patient breathing and with pulse as per family. Patient brought to the ER for evaluation. Patient more awake after IVF administration. Patient denies headache, chest pain, SOB, abdominal pain. She does not remember events prior to hospital arrival. Patient back to baseline mentation as per sisters. 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 Allergies Allergy/AdvReac Type Severity Reaction Status Date / Time fluconazole Allergy Severe hives,rash,respiratory Verified 12/09/22 23:53 difficulty fluticasone Allergy Severe SHORT OF Verified 12/09/22 23:53 BREATH/RASH hydrochlorothiazide Allergy Severe Rash Verified 12/09/22 23:53 triamterene Allergy Severe Rash Verified 12/09/22 23:53 erythromycin base Allergy Intermediate RASH/NAUSEA Verified 12/09/22 23:53 /VOMITING isosorbide Allergy Intermediate Headache Verified 12/09/22 23:53 NSAIDS (Non-Steroidal Allergy Intermediate hives,rash Verified 12/09/22 23:53 Anti-Inflamma amifostine Allergy Unknown Unknown Verified 12/09/22 23:53 lisinopril Allergy Unknown Unknown Verified 12/09/22 23:53 Penicillins Allergy Unknown Unknown Verified 12/09/22 23:53 ethyl alcohol AdvReac Unknown Unknown Verified 12/09/22 23:53 Home Medications Medication Instructions Recorded Confirmed Type albuterol sulfate 90 mcg/actuation 2 puff inhalation Q6H PRN 02/06/22 12/10/22 History aerosol inhaler Shortness Of Breath Or Wheezing carbidopa 25 mg-levodopa 100 mg See Rx Instructions .Route .COMPLEX 02/06/22 12/10/22 History tablet duloxetine 30 mg capsule,delayed 30 mg PO BID 02/06/22 12/10/22 History release glimepiride 1 mg tablet 1 mg PO DAILY 02/06/22 12/10/22 History losartan 25 mg tablet 25 mg PO QAM 02/06/22 12/10/22 History metformin 1,000 mg tablet 1,000 mg PO BIDM 02/06/22 12/10/22 History rivastigmine 9.5 mg/24 hour 1 patch topical QAM 02/06/22 12/10/22 History transdermal patch umeclidinium 62.5 mcg/actuation 1 inh inhalation QAM 02/06/22 12/10/22 History blister powder for inhalation (Incruse Ellipta) mirabegron 50 mg tablet,extended 50 mg PO QAM 07/19/22 12/10/22 History release 24 hr (Myrbetriq) sitagliptin phosphate 100 mg 100 mg PO QAM 07/19/22 12/10/22 History tablet (Januvia) clopidogrel 75 mg tablet 75 mg PO QAM #30 tabs 09/12/22 12/10/22 Rx budesonide-formoterol HFA 160 2 puff inhalation BID 10/13/22 12/10/22 History mcg-4.5 mcg/actuation aerosol inhaler rosuvastatin 5 mg tablet 5 mg PO DAILY 10/13/22 12/10/22 History bisoprolol 2.5 1 tab PO DAILY 11/16/22 12/10/22 History mg-hydrochlorothiazide 6.25 mg tablet ipratropium 0.5 mg-albuterol 3 mg 3 ml inhalation QID 11/16/22 12/10/22 History (2.5 mg base)/3 mL nebulization soln acetaminophen 500 mg tablet 500 mg PO BID PRN Pain 12/10/22 12/10/22 History (Tylenol Extra Strength) codeine 10 mg-guaifenesin 100 mg/5 5 ml PO Q4H PRN Cough 12/10/22 12/10/22 History mL oral liquid (Guaifenesin AC) nitroglycerin 0.4 mg sublingual 0.4 mg sublingual DIRECTED PRN 12/10/22 12/10/22 History tablet (Nitrostat) Chest Pain Past Med/Surg History Medical History Anxiety Asthma CAD (coronary artery disease) COPD (chronic obstructive pulmonary disease) COVID-19 Delirium Dementia Diabetes mellitus, type II Generalized weakness GERD (gastroesophageal reflux disease) History of TIA (transient ischemic attack) Hyperlipidemia Hypertension Multiple fractures of ribs of left side Parkinson's disease Transient confusion Surgical History Hx of appendectomy S/P cholecystectomy Stented coronary artery Family History Other Diabetes Heart disease Hypertension Social History Smoking Status: Never smoker Tobacco Type: Cigarettes Cigarettes Per Day: 1 pack/day; Second Hand Exposure: No; Do You Dip or Chew Tobacco: No; Hx Alcohol Use: No Hx Substance Use: No Preferred Language: French Communication Ability: Impaired Communication Ability Comment: memory loss, confusion at times Visual Impairment: Limited Hearing Ability: Normal Dry Wall Nailer Required: No Beliefs That Will Affect Care: None marital status: Single Current Living Situation: Family and Rehab Current Living Situation Comment: Lives with sister in rehab facility current occupational status: retired 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[employer], [place] How many Children do You have: 0 Feels Safe at Home: Yes Diet: regular caffeine: Yes (rare) during the past year weight has: remained stable Assistive Devices: Nebulizer and Walker Review of Systems Review of Systems: Could not be reliably obtained secondary to dementia Physical Exam Physical Exam: GENERAL: Demented, no respiratory distress SKIN: Pallor, warm HEENT: Pale palpebral conjunctivae, no ptosis, dry buccal mucosa NECK : Supple, no tenderness CHEST : CTA, no tenderness HEART : RRR, no obvious murmurs ABDOMEN: Some distention, nontender RECTAL : Intact sphincter, brown stool (FOBT negative) EXTREMITIES : Minimal LE swelling, no LE tenderness, overlapping/underlapping t oes both feet NEUROLOGIC : Demented, no facial asymmetry, gait and stance not assessed Results & Data Results & Data Vital Signs (Past 12 Hours) Vital Signs Pulse Resp BP Pulse Ox O2 Del Method 12/09/22 23:55 71 12/10/22 00:45 72 21 166/67 H 98 Room Air 12/10/22 00:17 72 21 166/63 H 96 Room Air 12/10/22 00:08 67 16 130/62 95 Room Air 12/09/22 23:54 74 16 169/87 H 97 Room Air Laboratory Results Laboratory Results WBC 5.42 K/ul (4.8-10.8) 12/09/22 23:55 RBC 3.14 M/uL (4.20-5.40) L 12/09/22 23:55 Hgb 8.9 g/dl (12.0-16.0) L 12/09/22 23:55 Hct 28.3 % (37.0-47.0) L 12/09/22 23:55 MCV 90.1 fL (80.0-100.0) 12/09/22 23:55 MCH 28.3 pg (25.0-34.0) 12/09/22 23: MCHC 31.4 g/dL (32.0-36.0) L 12/09/22: RDW Std Deviation 48.4 fL (36.4-46.3) H 12/09/22 23: RDW Coeff of [place] 14.7 % (11.5-14.5) H 12/09/22 23: Plt Count 270 K/uL (130-400) 12/09/22: MPV 9.3 fL (9.4-12.4) L 12/09/22 23: Immature Gran % (Auto) 0.4 % 12/09/22 23: Neut % (Auto) 57.7 % 12/09/22: Lymph % (Auto) 28.0 % 12/09/22 23: [place] % (Auto) 9.8 % 12/09/22 23: Eos % (Auto) 3.7 % 12/09/22: Baso % (Auto) 0.4 % 12/09/22: Neut # (Auto) 3.13 K/uL (1.40-6.50) 12/09/22 23: Lymph # (Auto) 1.52 K/uL (1.2-3.4) 12/09/22 23:55 [place] # (Auto) 0.53 K/uL (0.11-0.59) 12/09/22 23: Eos # (Auto) 0.20 K/uL (0-0.50) 12/09/22: Baso # (Auto) 0.02 K/uL (0-0.2) 12/09/22 23: Immature Gran # (Auto) 0.02 K/uL (0.01-0.20) 12/09/22 23: PT 11.9 Seconds (9.0-12.0) 12/09/22 23: INR 1.1 (0.9-1.1) 12/09/22 23: APTT 29.5 Seconds (21.0-31.0) 12/09/22 23: PTT Ratio 1.0 12/09/22 23: Sodium 136 mmol/L (136-145) 12/09/22 23:55 Potassium 3.9 mmol/L (3.5-5.1) 12/09/22 23:55 Chloride 103 mmol/L (98-107) 12/09/22 23:55 Carbon Dioxide 30 mmol/L (21-32) 12/09/22 23:55 Anion Gap 3 (3-11) 12/09/22 23:55 BUN 23 mg/dl (6-23) 12/09/22 23:55 Creatinine 1.00 mg/dl (0.6-1.2) 12/09/22 23:55 Est Cr Clr Drug Dosing Not Reportable 12/09/22 23:55 Est GFR ( Amer) 61.2 ml/min 12/09/22 23:55 Est GFR (Non-Af Amer) 52.8 ml/min 12/09/22 23:55 BUN/Creatinine Ratio 23.0 (10-20) H 12/09/22 23:55 Glucose 114 mg/dl (70-99(Fasting)) H 12/09/22 23:55 POC Glucose 127 mg/dl (70-99) H 12/09/22 23:56 Calcium 8.3 mg/dl (8.6-10.3) L 12/09/22 23:55 Phosphorus 3.5 mg/dl (2.5-4.9) 12/09/22 23:55 Magnesium 1.8 mg/dl (1.7-2.4) 12/09/22 23:55 Total Bilirubin 0.3 mg/dl (0.2-1.0) 12/09/22 23:55 AST 11 U/L (13-39) L 12/09/22 23:55 ALT 10 U/L (7-52) 12/09/22 23:55 Alkaline Phosphatase 52 U/L (34-104) 12/09/22 23:55 Troponin I High Sens 3.5 pg/ml (0-14) 12/09/22 23:55 Total Protein 4.8 gm/dl (6.0-8.3) L 12/09/22 23:55 Albumin 3.1 gm/dl (3.4-5.0) L 12/09/22 23:55 Globulin 1.7 gm/dl (2.5-4.0) L 12/09/22 23:55 Albumin/Globulin Ratio 1.8 (0.9-2) 12/09/22 23:55 Urine Color Yellow 12/10/22 00:38 Urine Appearance Clear (Clear) 12/10/22 00:38 Urine pH 6.5 (4.5-7.5) 12/10/22 00:38 Ur Specific [place] 1.031 (1.000-1.030) H 12/10/22 00:38 Urine Protein Negative (Negative) 12/10/22 00:38 Urine Glucose (UA) Negative (Negative) 12/10/22 00:38 Urine Ketones Trace (Negative) H 12/10/22 00:38 Urine Blood Negative (Negative) 12/10/22 00:38 Urine Nitrite Negative (Negative) 12/10/22 00:38 Urine Bilirubin Negative (Negative) 12/10/22 00:38 Urine Urobilinogen Negative (Negative) 12/10/22 00:38 Ur Leukocyte Esterase Negative (Negative) 12/10/22 00:38 Blood Type O Negative 12/09/22 23:55 Antibody Screen NEGATIVE 12/09/22 23:[address] 12/09/22 23:38 CR Exam(s): CT HEAD Without Contrast EXAM: CT Head Without Intravenous Contrast CLINICAL HISTORY: Reason for exam: neuro deficit, acute stroke suspected. TECHNIQUE: Axial computed tomography images of the head/brain without intravenous contrast. CTDI is 36.46 mGy and DLP is 624.41 mGy-cm. Automated exposure control was utilized for the study. A dose lowering technique was utilized adhering to the principles of ALARA. COMPARISON: CT head 11/16/2022. FINDINGS: Brain: Global parenchymal volume loss with chronic microvascular ischemic changes and chronic left frontal lobe infarction. No hemorrhage. Ventricles: No ventriculomegaly. Bones/joints: Chronic left lamina papyracea fracture. Soft tissues: Unremarkable. Sinuses: Unremarkable as visualized. Mastoid air cells: Unremarkable as visualized. No mastoid effusion. Orbits: The lateral lens replacement. IMPRESSION: 1. No intracranial hemorrhage or evidence of acute large territorial infarction. 2. Global parenchymal volume loss with chronic microvascular ischemic changes and chronic left frontal lobe infarction. Communications: Call Doctor Stroke Electronically signed by: Wilfredo Segura MD 12/10/22 00:10 AM Head CTA 12/09/22 23:38 CR Exam(s): CTA HEAD With Contrast IV Amt: 116 ML OPTIRAY 350 EXAM: CT Angiography Head With Intravenous Contrast CLINICAL HISTORY: Reason for exam: neuro deficit, acute stroke suspected. TECHNIQUE: Axial computed tomographic angiography images of the head with intravenous contrast. CTDI is 36.43 mGy and DLP is 624.41 mGy-cm. Automated exposure control was utilized for the study. A dose lowering technique was utilized adhering to the principles of ALARA. MIP reconstructed images were created and reviewed. CONTRAST: Patient received 116 ML OPTIRAY 350 of IV contrast COMPARISON: CT head angiogram 11/16/2022. FINDINGS: Right internal carotid artery: No acute findings. Intracranial segment is patent with no significant stenosis. No aneurysm. Right anterior cerebral artery: Unremarkable. No occlusion or significant stenosis. No aneurysm. Right middle cerebral artery: Unremarkable. No occlusion or significant stenosis. No aneurysm. Right posterior cerebral artery: Mild stenosis of the bilateral posterior cerebral arteries. No aneurysm. Right vertebral artery: Atherosclerosis resulting in severe stenosis of the V4 segment of the right vertebral artery and moderate stenosis of the V4 segment of the left vertebral artery. Left internal carotid artery: No acute findings. Intracranial segment is patent with no significant stenosis. No aneurysm. Left anterior cerebral artery: Severe stenosis of the A2 segment of the left anterior cerebral artery. No aneurysm. Left middle cerebral artery: Unremarkable. No occlusion or significant stenosis. No aneurysm. Left posterior cerebral artery: origin of the left posterior cerebral artery. Left vertebral artery: See above. Basilar artery: Unremarkable. No occlusion or significant stenosis. No aneurysm. Other vasculature: Severe atherosclerosis of the cavernous and supraclinoid segments of the internal carotid arteries which results in severe stenosis of the right supraclinoid internal carotid artery and moderate stenosis of the left supraclinoid internal carotid artery. Brain: Mild stenosis of the M1 segments of the middle cerebral arteries, left greater than right. IMPRESSION: 1. No large vessel occlusion. 2. Atherosclerosis resulting in severe stenosis of the V4 segment of the right vertebral artery and moderate stenosis of the V4 segment of the left vertebral artery. 3. Severe stenosis of the A2 segment of the left anterior cerebral artery. 4. Mild stenosis of the M1 segments of the middle cerebral arteries, left greater than right. 5. Mild stenosis of the bilateral posterior cerebral arteries. Communications: Call Doctor Stroke Electronically signed by: Wilfredo Segura MD 12/10/22 00:18 AM Neck CTA 12/09/22 23:38 CR Exam(s): CTA NECK With Contrast IV Amt: 116 ML OPTIRAY 350 EXAM: CT Angiography Neck With Intravenous Contrast CLINICAL HISTORY: Reason for exam: neuro deficit, acute stroke suspected. TECHNIQUE: Routine carotid CT angiography protocol was performed with intravenous contrast. NASCET criteria using the distal ICAs for comparison were used for evaluation of stenoses. CTDI is 31.52 mGy and DLP is 468.76 mGy-cm. Automated exposure control was utilized for the study. A dose lowering technique was utilized adhering to the principles of ALARA. MIP reconstructed images were created and reviewed. CONTRAST: Patient received 116 ML OPTIRAY 350 of IV contrast COMPARISON: None. FINDINGS: VASCULATURE: Right common carotid artery: Unremarkable. No occlusion or significant stenosis. No dissection. Right internal carotid artery: Unremarkable. Extracranial segment is patent with no occlusion or significant stenosis. No dissection. Right external carotid artery: Unremarkable. No occlusion. Right vertebral artery: Unremarkable. No occlusion or significant stenosis. No dissection. Left common carotid artery: Unremarkable. No occlusion or significant stenosis. No dissection. Left internal carotid artery: Unremarkable. Extracranial segment is patent with no occlusion or significant stenosis. No dissection. Left external carotid artery: Unremarkable. No occlusion. Left vertebral artery: Unremarkable. No occlusion or significant stenosis. No dissection. Other vasculature: Atherosclerosis of the carotid bifurcations. Aorta: Four-vessel aortic arch. NECK: Bones/joints: Degenerative changes in the cervical spine. Soft tissues: Unremarkable. Thyroid: Multinodular thyroid gland. Lung apices: Clear. CAROTID STENOSIS REFERENCE USING NASCET CRITERIA: % ICA stenosis = (1 - narrowest ICA diameter/diameter of distal cervical ICA) x 100. Mild - <50% stenosis. Moderate - 50-69% stenosis. Severe - 70-94% stenosis. Near occlusion - 95-99% stenosis. Occluded - 100% stenosis. IMPRESSION: No dissection, pseudoaneurysm, or hemodynamically significant stenosis of the carotid or vertebral arteries. Communications: Call Doctor Stroke Electronically signed by: Wilfredo Segura MD 12/10/22 00:14 AM Diagnostic Findings EKG as per my interpretation : Rate 73, NSR, normal axis, septal infarct, T wave flattening inferior leads
[2022-12-10] MEDS ORDERED: NSS + 20MEQ KCL 20 MEQ/1,000 ML BAG IV ONE (03:03)
[2022-12-10] MEDS ORDERED: GLUCOSE 10 TAB/TUBE PO PRN (03:51)
[2022-12-10] MEDS ORDERED: DEXTROSE 50% 50 ML SYRINGE IV PRN (03:51)
[2022-12-10] MEDS ORDERED: NITROGLYCERIN SL 0.4 MG/TAB TAB SL PRN (03:51)
[2022-12-10] MEDS ORDERED: ACETAMINOPHEN 500 MG TAB PO PRN (03:51)
[2022-12-10] MEDS ORDERED: GLUCAGON FOR INJ 1 MG VIAL SQ PRN (03:51)
[2022-12-10] MEDS ORDERED: CARBOHYDRATES FOR HYPOGLYCEMIA PO PRN (03:51)
[2022-12-10] MEDS ORDERED: GLUCOSE 40% GEL 15 GM TUBE PO PRN (03:51)
[2022-12-10 04:54] LABS: Basophils # (auto) 0.03 K/uL (0-0.2); Basophils % (auto) 0.5 %; Eosinophils # (auto) 0.19 K/uL (0-0.50); Eosinophils % (auto) 3.3 %; Hematocrit (blood only) 32.3 % (37.0-47.0); Hemoglobin 10.1 g/dl (12.0-16.0); Immature Granulocytes # (auto) 0.02 K/uL (0.01-0.20); Immature Granulocytes % (auto) 0.4 %; Lymphocytes # (auto) 1.33 K/uL (1.2-3.4); Lymphocytes % (auto) 23.4 %; Mean Corpuscular Hemoglobin 27.6 pg (25.0-34.0); Mean Corpuscular Hgb Conc 31.3 g/dL (32.0-36.0); Mean Corpuscular Volume 88.3 fL (80.0-100.0); Mean Platelet Volume 9.5 fL (9.4-12.4); Monocytes # (auto) 0.51 K/uL (0.11-0.59); Neutrophils # (auto) 3.61 K/uL (1.40-6.50); Neutrophils % (auto) 63.4 %; Platelet Count 303 K/uL (130-400); RDW Coefficient of Variation 14.6 % (11.5-14.5); RDW Standard Deviation 47.1 fL (36.4-46.3); Red Blood Count 3.66 M/uL (4.20-5.40); Reticulocyte % 1.4 % (0.5-2.0); Reticulocytes # 0.05 10^6/uL (0.02-0.10); White Blood Count 5.69 K/ul (4.8-10.8)
[2022-12-10 05:24] LABS: Anion Gap 4 (3-11); BUN Creatinine Ratio 23.4 (10-20); Blood Urea Nitrogen 22 mg/dl (6-23); Calcium 8.7 mg/dl (8.6-10.3); Carbon Dioxide 29 mmol/L (21-32); Chloride 108 mmol/L (98-107); Est GFR (African American) 65.9 ml/min; Est GFR (Non-African American) 56.9 ml/min; Glucose 134 mg/dl (70-99(Fasting)); Potassium 4.3 mmol/L (3.5-5.1); Sodium 141 mmol/L (136-145)
[2022-12-10] MEDS: INSULIN ASPART PER UNIT CHARGE SC SCH ×4 (05:27→20:37)
[2022-12-10 05:30] LABS: Ferritin 7.6 ng/ml (8-388)
[2022-12-10] MEDS: ALBUT/IPRATROP 3MG/0.5MG NEB 3 ML VIAL INH SCH ×4 (07:19→19:18)
--- NOTE | 2022-12-10 07:19 | XRay Report ---
XR chest 1V portable CLINICAL HISTORY: stroke symptoms TECHNIQUE: Single frontal radiograph of the chest was obtained. Comparison: Comparison is made to chest radiographs 11/17/2022 FINDINGS: No lines and tubes are seen. The cardiomediastinal silhouette is normal. The lungs are clear. No evid ence of pleural effusion or pneumothorax. IMPRESSION: No acute chest disease. ACT 112: Negative or not required by law. Electronically signed by: Teddy Oakes M.D. 12/10/2022 7:18 AM
[2022-12-10] MEDS ORDERED: UMECLIDINIUM BROMIDE 62.5MCG/BLISTER 7 PUFFS/INHALER INH SCH (09:00)
[2022-12-10] MEDS ORDERED: LOSARTAN POTASSIUM 25 MG TAB PO SCH (09:00)
[2022-12-10] MEDS: ROSUVASTATIN CALCIUM 5 MG TAB PO SCH (09:38)
[2022-12-10] MEDS: DULoxetine HCL 30 MG CAP PO SCH ×2 (09:38→20:06)
[2022-12-10] MEDS: VIBEGRON 75 MG TAB PO SCH (09:38)
[2022-12-10] MEDS: CLOPIDOGREL BISULFATE 75 MG TAB PO SCH (09:39)
[2022-12-10] MEDS: ATENOLOL 25 MG TABLET PO SCH (09:39)
[2022-12-10] MEDS: CARBIDOPA/LEVODOPA 25/100MG TAB PO SCH ×4 (09:39→20:07)
[2022-12-10] MEDS: ENOXAPARIN INJ 30 MG/0.3 ML SYR SQ SCH (09:40)
--- NOTE | 2022-12-10 11:52 | Neurology Consultation ---
Date of Consultation December 10, 2022 Assessment & Plan (1) Parkinson's disease: (2) Dementia: (3) History of CVA (cerebrovascular accident): (4) AMS (altered mental status): Plan 82-year-old female with advanced Parkinson's disease and associated dementia as well as a chronic left frontal lobe infarct who has been experiencing recurrent difficulty with attempts at arousing patient from sleep to take her medications. I agree with the previous neurological assessment that her poor arousability is due to disrupted sleep cycle in the context of advancing Parkinson's and associated dementia. There is no indication of obvious seizure activity. However, given the apparent episodic nature of her presentation, it would not be unreasonable to obtain a routine EEG to screen for any epileptiform abnormalities. I would not initiate an antiseizure medication at this time, however. In terms of her Parkinson's disease and dementia, I would continue with her usual carbidopa levodopa regimen. She is modestly dyskinetic which is likely related to her response to levodopa in the context of advancing Parkinson's disease. I would not make any medication adjustments at this time, however, to address her dyskinesias. Sometimes, reducing the dosage of levodopa or adding amantadine can be helpful to address this issue but benefit is often limited and patients typically do not tolerate levodopa dosage reduction. I would also continue with her transdermal rivastigmine. This medication would likely need to be brought in from home as I do not believe it is on the [facility] formulary. I do not think another brain MRI is necessary at this time. She may continue with rosuvastatin and clopidogrel in the context of her history of stroke. Addressing sleep cycle abnormalities would of course be difficult in the context of a hospitalization. Adding a low-dose of mirtazapine at bedtime could be tried, to potentially consolidate her sleep in the evening, this medication may also improve appetite. History of Present Illness Reason for Consultation: episodic unresponsiveness, h/o PD/dementia Requesting Physician: Marleny Attending Physician: Luiz West MD History of Present Illness The patient is an 82-year-old female with a history of advanced Parkinson's and associated dementia and chronic left frontal lobe infarct who presented to the emergency department overnight for further assessment of recurrent alteration in mental status. The patient was apparently somnolent and not waking up with attempts to give her her medications. She had complained of some abdominal pain over the past few days as well as a headache. She was somnolent during her initial assessment in the emergency department but would awaken to loud voice. She did not follow commands. She was brought in as a possible stroke alert and did have a telestroke consultation although TNKase was not recommended. Her presentation was felt to be more likely consistent with encephalopathy. A CT of the head was negative for hemorrhage or acute process, there was generalized atrophy and chronic microvascular ischemic disease as well as a chronic left frontal lobe infarct. A CT angiogram of the head revealed multifocal stenotic disease, severe for the right V4 segment of the right vertebral artery, moderate for the left V4 segment, severe of the A2 segment of the left anterior cerebral artery, mild stenosis of the M1 segment of the middle cerebral arteries, left greater than right. A CTA of the neck was unremarkable. I independently reviewed these images and agree with the findings as described by radiology. I note that she had a neurological consultation with Dr. Benitez on September 23, 2022 in the context of a very similar presentation, again noting patient's history of parkinsonism and dementia with an episode of unresponsiveness at that time, very similar, unarousable with family attempts to awaken the patient. There was no reported stiffening or shaking movements. Patient was unable to contribute to history in the context of her dementia. The etiology of these recurrent episodes was unclear although they were suspected to be related to abnormal sleep cycle in the context of her advancing Parkinson's dementia. A brain MRI completed at that time was negative for acute process. I see that she had another brain MRI completed November 16 in the context of altered mental status that was also negative for acute process and again revealed the chronic left frontal lobe infarct. There is also an incidental very small infarct within the right cerebellar hemisphere. I independently reviewed these images. An ECG has revealed a normal sinus rhythm with fusion complexes. She had an echocardiogram completed this past August which revealed grossly normal valvular structure and function, EF 55 to 60%, left atrial size normal, no ASD. PFO not assessed. Recent labs reviewed. WBC 5.69, hemoglobin 10.1, hematocrit 32.3, platelet count 303, sodium 141, potassium 4.3, BUN 22, creatinine 0.94, glucose 134, calcium 8.7, AST 11, ALT 10, vitamin B12 186, folate 6.16, free T40.84, urinalysis unremarkable. As above, patient is unable to contribute reliably to her history in light of her dementia. Allergies Allergy/AdvReac Type Severity Reaction Status Date / Time fluconazole Allergy Severe hives,rash,respiratory Verified 12/09/22 23:53 difficulty fluticasone Allergy Severe SHORT OF Verified 12/09/22 23:53 BREATH/RASH hydrochlorothiazide Allergy Severe Rash Verified 12/09/22 23:53 triamterene Allergy Severe Rash Verified 12/09/22 23:53 erythromycin base Allergy Intermediate RASH/NAUSEA Verified 12/09/22 23:53 /VOMITING isosorbide Allergy Intermediate Headache Verified 12/09/22 23:53 NSAIDS (Non-Steroidal Allergy Intermediate hives,rash Verified 12/09/22 23:53 Anti-Inflamma amifostine Allergy Unknown Unknown Verified 12/09/22 23:53 lisinopril Allergy Unknown Unknown Verified 12/09/22 23:53 Penicillins Allergy Unknown Unknown Verified 12/09/22 23:53 ethyl alcohol AdvReac Unknown Unknown Verified 12/09/22 23:53 Home Medications Medication Instructions Recorded Confirmed Type albuterol sulfate 90 mcg/actuation 2 puff inhalation Q6H PRN 02/06/22 12/10/22 History aerosol inhaler Shortness Of Breath Or Wheezing carbidopa 25 mg-levodopa 100 mg See Rx Instructions .Route .COMPLEX 02/06/22 12/10/22 History tablet duloxetine 30 mg capsule,delayed 30 mg PO BID 02/06/22 12/10/22 History release glimepiride 1 mg tablet 1 mg PO DAILY 02/06/22 12/10/22 History losartan 25 mg tablet 25 mg PO QAM 02/06/22 12/10/22 History metformin 1,000 mg tablet 1,000 mg PO BIDM 02/06/22 12/10/22 History rivastigmine 9.5 mg/24 hour 1 patch topical QAM 02/06/22 12/10/22 History transdermal patch umeclidinium 62.5 mcg/actuation 1 inh inhalation QAM 02/06/22 12/10/22 History blister powder for inhalation (Incruse Ellipta) mirabegron 50 mg tablet,extended 50 mg PO QAM 07/19/22 12/10/22 History release 24 hr (Myrbetriq) sitagliptin phosphate 100 mg 100 mg PO QAM 07/19/22 12/10/22 History tablet (Januvia) clopidogrel 75 mg tablet 75 mg PO QAM #30 tabs 09/12/22 12/10/22 Rx budesonide-formoterol HFA 160 2 puff inhalation BID 10/13/22 12/10/22 History mcg-4.5 mcg/actuation aerosol inhaler rosuvastatin 5 mg tablet 5 mg PO DAILY 10/13/22 12/10/22 History bisoprolol 2.5 1 tab PO DAILY 11/16/22 12/10/22 History mg-hydrochlorothiazide 6.25 mg tablet ipratropium 0.5 mg-albuterol 3 mg 3 ml inhalation QID 11/16/22 12/10/22 History (2.5 mg base)/3 mL nebulization soln acetaminophen 500 mg tablet 500 mg PO BID PRN Pain 12/10/22 12/10/22 History (Tylenol Extra Strength) codeine 10 mg-guaifenesin 100 mg/5 5 ml PO Q4H PRN Cough 12/10/22 12/10/22 History mL oral liquid (Guaifenesin AC) nitroglycerin 0.4 mg sublingual 0.4 mg sublingual DIRECTED PRN 12/10/22 12/10/22 History tablet (Nitrostat) Chest Pain Patient History Medical History Anxiety Asthma CAD (coronary artery disease) COPD (chronic obstructive pulmonary disease) COVID-19 Delirium Dementia Diabetes mellitus, type II Generalized weakness GERD (gastroesophageal reflux disease) History of TIA (transient ischemic attack) Hyperlipidemia Hypertension Multiple fractures of ribs of left side Parkinson's disease Transient confusion Surgical History Hx of appendectomy S/P cholecystectomy Stented coronary artery Family History Other Diabetes Heart disease Hypertension Social History Smoking Status: Never smoker Tobacco Type: Cigarettes Cigarettes Per Day: 1 pack/day; Second Hand Exposure: No; Do You Dip or Chew Tobacco: No; Hx Alcohol Use: No Hx Substance Use: No Preferred Language: Ecuadorean Communication Ability: Impaired Communication Ability Comment: memory loss, confusion at times Visual Impairment: Limited Hearing Ability: Normal Student Finance Advisor Required: No Beliefs That Will Affect Care: None marital status: Single Current Living Situation: Family and Rehab Current Living Situation Comment: Lives with sister in rehab facility current occupational status: retired 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[employer], [place] How many Children do You have: 0 Feels Safe at Home: Yes Diet: regular caffeine: Yes (rare) during the past year weight has: remained stable Assistive Devices: Nebulizer and Walker Review of Systems Review of Systems: Unobtainable due to cognitive status Exam (Neuro) Constitutional: + frail appearing; no acute distress Eyes: normal visual nagel by confrontation, PERRL and EOM intact bilaterally Cardiovascular: Vessels: no carotid bruit Neurologic: Oriented to:: Person; negative Place or Time Memory: negative Short Term Intact or Remote Intact Attention: negative Span Intact or Concentration Intact Speech Fluency: Limited Comprehension and Slowed Speech Aphasia: negative Aphasia Fund of Knowledge: Vocabulary; negative Current Events or Past History Cranial Nerves: Normal II, III, IV, , V, VII, VIII, IX, X, XI and XII Motor Strength: Normal Lower Extremities and Normal Upper Extremities Rigidity: Rigidity Muscle Bulk/Involuntary Movements: negative No Involuntary Movements (Patient exhibits generalized dyskinesia, mild to moderate severity) or Pill Rolling Tremor Sensation: Light Touch Intact and Pain/Temperature Intact; negative Vibration Intact Coordination: Finger-Nose Abnormal and Heel-Bautista Abnormal; negative Dysdiadochokinesia Deep Tendon Reflexes: Rt Triceps: 2+, Lt Triceps: 2+, Rt Biceps: 2+, Lt Biceps: 2+, Rt Brachioradialis: 2+, Lt Brachioradialis: 2+, Rt Patellar: 2+, Lt Patellar: 2+, Rt Ankle: 1+ and Lt Ankle: 1+ Special Tests: negative Babinski Present Details: Gait cannot be assessed Results & Data Vital Signs (Past 12 Hours) Vital Signs Pulse Pulse Resp BP BP Pulse Ox Pulse Ox 12/10/22 07:20 60 16 97 12/10/22 07:11 58 L 18 136/58 L 95 12/10/22 07:11 95 12/10/22 04:50 76 17 142/62 H 96 12/09/22 23:55 71 12/10/22 00:45 72 21 166/67 H 98 12/10/22 00:17 72 21 166/63 H 96 12/10/22 00:08 67 16 130/62 95 12/09/22 23:54 74 16 169/87 H 97 O2 Del Method O2 Del Method 12/10/22 07:20 Room Air 12/10/22 07:11 Room Air 12/10/22 07:11 Room Air 12/10/22 04:50 Room Air 12/09/22 23:55 12/10/22 00:45 Room Air 12/10/22 00:17 Room Air 12/10/22 00:08 Room Air 12/09/22 23:54 Room Air PG Care Time/CCT Total # of Minutes Spent Total Time Spent with Patient: Total time spent is greater than 50% in coordination of care (as documented) at patient's floor/unit and/or counseling patient: Coding Level of Care Code 11746 INT INP/OBS CARE 2/55MIN Diagnoses Parkinson's disease G20 Dementia F03.90 History of CVA (cerebrovascular accident) Z86.73 AMS (altered mental status) R41.82
--- NOTE | 2022-12-10 16:02 | Electrocardiogram Report ---
Test Reason : Blood Pressure : / mmHG Vent. Rate : 070 BPM Atrial Rate : 070 BPM P-R Int : 180 ms QRS Dur : 092 ms QT Int : 382 ms P-R-T Axes : 085 056 059 degrees QTc Int : 412 ms Sinus rhythm with Fusion complexes Septal infarct , age undetermined Abnormal ECG When compared with ECG of 16-NOV-2022 14:52, Fusion complexes are now Present Septal infarct is now Present Confirmed by Bakari Sosa ([id number]) on 12/10/2022 4:01:32 PM Referred By: REFERRED SELF Confirmed By:Bakari Sosa
--- NOTE | 2022-12-10 16:59 | Hospitalist Progress Note ---
Date of Service December 10, 2022 Assessment & Plan (1) Episode of unresponsiveness: Plan: Recurrent episodes hx recurrent CVA, recent cerebellar CVA hx Parkinson's dementia Episodic unresponsiveness may be sleep cycle related especially given patient's Parkinson's as per inpatient Neurology consult from August 2022 -- CT head: No acute process --No signs of infection at this point -- Neurologist consulted: Presentation likely due to disrupted sleep cycle in the context of advancing Parkinson's and associated dementia Recommend mirtazapine 15 mg at bedtime --Discussed with patient's sisters at the bedside, answered all questions regarding mirtazapine They agree for trial of mirtazapine, observation while in the hospital hx CAD status post stent asthma/COPD as per records, stable hypertension, stable hyperlipidemia on statin Rx DM2 on oral medications, well-controlled as of recent hemoglobin A1c of 6.5 last month Chronic anemia, hemoglobin stable past tobacco abuse. PT OT eval DVT prophylaxis per Lovenox subcu Full code as per sisters. Patient sisters requesting updates for providers. Ja Itzel Oakes, contact #[phone]. . Jolanta Vail, contact #[phone]. plan of care discussed with patient's sisters in detail and at length all questions answered They are understanding, agreeable, comfortable with the plan of care Disposition Patient lives with one of her sisters at home Admission and Anticipated Discharge Date Admission Date: December 10, 2022 Subjective Follow-up for episodes of unresponsiveness, etc. Seen resting in bed, comfortable, not in distress Awake and alert, pleasantly confused Patient's 2 sisters at the bedside visiting Patient states she feels fine overall Denies headache, dizziness, nausea or vomiting, chest pain, shortness of breath, abdominal pain, no problems urination or bowel movement No any other symptoms Review of Systems Review of Systems: all noted and negative except for above Physical Exam Physical Exam: General- oriented x 2, not in distress, speaks in sentences with no effort or accessory muscle use Eyes- anicteric Neck- no JVD Lungs- clear breath sounds bilaterally, no rales/wheezes Heart- normal rate, regular rhythm; no murmurs Abdomen- normal bowel sounds, nondistended, soft, nontender Extremities- no pretibial edema, no calf tenderness Neuro- alert, oriented x 2; no gross focal neurologic deficits Skin- warm & dry Results & Data Results & Data Vital Signs (Past 12 Hours) Vital Signs Pulse Pulse Resp BP BP Pulse Ox Pulse Ox 12/10/22 16:17 160/87 H 12/10/22 16:00 69 27 H 12/10/22 16:00 160/87 H 12/10/22 15:30 67 24 12/10/22 15:00 75 22 12/10/22 14:30 64 27 H 100 12/10/22 14:00 66 29 H 97 12/10/22 13:30 65 26 H 95 12/10/22 13:00 65 30 H 95 12/10/22 12:30 66 26 H 95 12/10/22 12:01 63 28 H 95 12/10/22 12:01 131/75 12/10/22 12:00 63 23 93 12/10/22 11:00 60 22 93 12/10/22 10:30 64 21 93 12/10/22 10:00 67 20 95 12/10/22 09:37 166/79 H 12/10/22 09:37 69 19 97 12/10/22 09:30 66 16 96 12/10/22 09:00 66 18 95 12/10/22 08:30 66 17 95 12/10/22 08:00 65 17 93 12/10/22 08:00 149/64 H 12/10/22 07:30 59 L 17 99 12/10/22 07:09 59 L 18 95 12/10/22 07:09 136/58 L 12/10/22 07:00 62 19 96 12/10/22 06:30 60 18 97 12/10/22 06:00 67 17 97 12/10/22 05:30 70 18 98 12/10/22 05:00 72 17 97 12/10/22 15:21 68 12/10/22 07:20 60 16 97 12/10/22 07:11 58 L 18 136/58 L 95 12/10/22 07:11 95 12/10/22 04:50 76 17 142/62 H 96 O2 Del Method O2 Del Method 12/10/22 16:17 Room Air 12/10/22 16:00 12/10/22 16:00 12/10/22 15:30 12/10/22 15:00 12/10/22 14:30 12/10/22 14:00 12/10/22 13:30 12/10/22 13:00 12/10/22 12:30 12/10/22 12:01 12/10/22 12:01 12/10/22 12:00 12/10/22 11:00 12/10/22 10:30 12/10/22 10:00 12/10/22 09:37 12/10/22 09:37 12/10/22 09:30 12/10/22 09:00 12/10/22 08:30 12/10/22 08:00 12/10/22 08:00 12/10/22 07:30 12/10/22 07:09 12/10/22 07:09 12/10/22 07:00 12/10/22 06:30 12/10/22 06:00 12/10/22 05:30 12/10/22 05:00 12/10/22 15:21 12/10/22 07:20 Room Air 12/10/22 07:11 Room Air 12/10/22 07:11 Room Air 12/10/22 04:50 Room Air all noted and reviewed including below
[2022-12-10] MEDS ORDERED: MIRTAZAPINE TAB 15 MG TAB PO SCH (21:00)
[2022-12-11] MEDS: LOSARTAN POTASSIUM 25 MG TAB PO SCH (05:43)
[2022-12-11] MEDS: ALBUT/IPRATROP 3MG/0.5MG NEB 3 ML VIAL INH SCH ×4 (07:02→19:20)
[2022-12-11] MEDS: INSULIN ASPART PER UNIT CHARGE SC SCH ×4 (09:32→20:58)
[2022-12-11] MEDS: CARBIDOPA/LEVODOPA 25/100MG TAB PO SCH ×7 (09:33→21:28)
[2022-12-11] MEDS: CLOPIDOGREL BISULFATE 75 MG TAB PO SCH ×2 (09:33→10:54)
[2022-12-11] MEDS: ATENOLOL 25 MG TABLET PO SCH ×2 (09:33→10:54)
[2022-12-11] MEDS: DULoxetine HCL 30 MG CAP PO SCH ×4 (09:33→21:29)
[2022-12-11] MEDS: ENOXAPARIN INJ 30 MG/0.3 ML SYR SQ SCH ×2 (09:33→10:54)
[2022-12-11] MEDS: ROSUVASTATIN CALCIUM 5 MG TAB PO SCH ×2 (09:34→10:55)
[2022-12-11] MEDS: VIBEGRON 75 MG TAB PO SCH ×2 (09:34→10:54)
[2022-12-11] MEDS: FLUTICASONE/VILANTEROL 200/25MCG 14 PUFFS/INHALER INH SCH ×2 (09:34→10:56)
--- NOTE | 2022-12-11 09:36 | CT Scan Report ---
CT head/brain wo con CLINICAL HISTORY: 82 years-old Female with unresponsive. Acutely altered mental status TECHNIQUE: Multiple axial CT images of the head were obtained without contrast. A dose lowering tech nique was utilized adhering to the principles of ALARA. CT DOSE: 861.28 mGy.cm COMPARISON: 12/09/2022 FINDINGS: No acute intracranial hemorrhage, midline shift, intracranial mass, hydrocephalus, territorial ischem ia or abnormal extra-axial collection. Involutional changes with chronic microvascular ischemic disea se. Chronic left frontal lobe infarct. The calvarium is intact. Prior bilateral lens repair. The paranasal sinuses, mastoid air cells, and m iddle ear cavities are clear. IMPRESSION: Chronic findings without acute intracranial abnormality. ACT 112: Negative or not required by law. The above report was generated using voice recognition software. It may contain grammatical, syntax o r spelling errors. Electronically signed by: Henry Rodney M.D. 12/11/2022 9:35 AM
--- NOTE | 2022-12-11 09:40 | Hospitalist Progress Note ---
Date of Service December 11, 2022 Assessment & Plan (1) Episode of unresponsiveness: Plan: Recurrent episodes hx recurrent CVA, recent cerebellar CVA hx Parkinson's dementia Episodic unresponsiveness may be sleep cycle related especially given patient's Parkinson's as per inpatient Neurology consult from August 2022 -- CT head: No acute process --No signs of infection at this point -- Neurologist consulted: Presentation likely due to disrupted sleep cycle in the context of advancing Parkinson's and associated dementia Recommend mirtazapine 15 mg at bedtime --Discussed with patient's sisters at the bedside, answered all questions regarding mirtazapine They agree for trial of mirtazapine, observation while in the hospital 12/11 stroke alert this AM as pt unresponsive again CT head negative Discussed w/ neurology - EEG ordered Pt woke up when went to CT and then close to baseline hx CAD status post stent asthma/COPD as per records, stable hypertension, stable hyperlipidemia on statin Rx DM2 on oral medications, well-controlled as of recent hemoglobin A1c of 6.5 last month Chronic anemia, hemoglobin stable past tobacco abuse. PT OT eval DVT prophylaxis per Lovenox subcu Full code as per sisters. Patient sisters Ms. Itzel Oakes, contact #[phone]. Ms. Jolanta Vail, contact #[phone]. Disposition Patient lives with one of her sisters at home Admission and Anticipated Discharge Date Admission Date: December 10, 2022 Subjective Follow-up for episodes of unresponsiveness, etc. Pt w/ another episode of unresponsiveness this AM. Stroke alert called by RN. Pt able to move extremities slightly on exam but not opening eyes, not following commands. CT head stat obtained and negative. Dr. Chavarria and [facility] (Dr. Ann) contacted Discussed w/ [facility] - not likely CVA, recommend EEG Discussed w/ Dr. Chavarria - may consider to decrease mirtazapine started yesterday, will obtain EEG Sisters at bedside updated After pt went for her head CT - she woke up and close to baseline Denies headache, dizziness, nausea or vomiting, chest pain, shortness of breath, abdominal pain, no problems urination or bowel movement No any other symptoms Review of Systems Review of Systems: All systems reviewed & are unremarkable except as noted in Subjective Physical Exam Physical Exam: Initial eval - pt moves extremities slightly when prompted/ touched but does not open eyes pt later wakes up when went for CT General- oriented x 2, not in distress, speaks in sentences with no effort or accessory muscle use Eyes- anicteric Neck- no JVD Lungs- clear breath sounds bilaterally, no rales/wheezes Heart- normal rate, regular rhythm; no murmurs Abdomen- normal bowel sounds, nondistended, soft, nontender Extremities- no pretibial edema, no calf tenderness Neuro- alert, oriented x 2; no gross focal neurologic deficits Skin- warm & dry Results & Data Results & Data Vital Signs (Past 12 Hours) Vital Signs Temp Pulse Pulse Pulse Resp BP BP 12/11/22 08:00 36.6 C 58 L 18 147/74 H 12/11/22 07:23 36.3 C L 60 16 181/83 H 12/11/22 07:00 56 L 12/11/22 07:02 62 16 12/10/22 21:59 67 12/11/22 04:08 158/81 H 12/11/22 03:36 36.7 C 68 20 183/85 H 12/10/22 22:49 36.9 C 67 20 143/83 H Pulse Ox O2 Del Method 12/11/22 08:00 Room Air 12/11/22 07:23 93 Room Air 12/11/22 07:00 12/11/22 07:02 94 Room Air 12/10/22 21:59 12/11/22 04:08 12/11/22 03:36 95 Room Air 12/10/22 22:49 96 Room Air Laboratory Results 12/11/22 12/11/22 12/11/22 Range/Units 16:53 11:16 10:00 WBC (4.8-10.8) K/ul RBC (4.20-5.40) M/uL Hgb (12.0-16.0) g/dl Hct (37.0-47.0) % MCV (80.0-100.0) fL MCH (25.0-34.0) pg MCHC (32.0-36.0) g/dL RDW Std Deviation (36.4-46.3) fL RDW Coeff of Jayden (11.5-14.5) % Plt Count (130-400) K/uL MPV (9.4-12.4) fL PT 11.3 (9.0-12.0) Seconds INR 1.0 (0.9-1.1) APTT 28.2 (21.0-31.0) Seconds PTT Ratio 1.0 Sodium (136-145) mmol/L Potassium (3.5-5.1) mmol/L Chloride (98-107) mmol/L Carbon Dioxide (21-32) mmol/L Anion Gap (3-11) BUN (6-23) mg/dl Creatinine (0.6-1.2) mg/dl Est Cr Clr Drug Dosing ml/min Est GFR ( Amer) ml/min Est GFR (Non-Af Amer) ml/min BUN/Creatinine Ratio (10-20) Glucose (70-99(Fasting)) mg/dl POC Glucose 120 H 133 H (70-99) mg/dl Calcium (8.6-10.3) mg/dl Phosphorus (2.5-4.9) mg/dl Magnesium (1.7-2.4) mg/dl 12/11/22 12/11/22 12/11/22 Range/Units 09:54 09:54 09:12 WBC 6.00 (4.8-10.8) K/ul RBC 3.86 L (4.20-5.40) M/uL Hgb 10.9 L (12.0-16.0) g/dl Hct 34.5 L (37.0-47.0) % MCV 89.4 (80.0-100.0) fL MCH 28.2 (25.0-34.0) pg MCHC 31.6 L (32.0-36.0) g/dL RDW Std Deviation 47.8 H (36.4-46.3) fL RDW Coeff of Jayden 14.7 H (11.5-14.5) % Plt Count 294 (130-400) K/uL MPV 9.3 L (9.4-12.4) fL PT (9.0-12.0) Seconds INR (0.9-1.1) APTT (21.0-31.0) Seconds PTT Ratio Sodium 141 (136-145) mmol/L Potassium 4.4 (3.5-5.1) mmol/L Chloride 110 H (98-107) mmol/L Carbon Dioxide 28 (21-32) mmol/L Anion Gap 3 (3-11) BUN 17 (6-23) mg/dl Creatinine 0.80 (0.6-1.2) mg/dl Est Cr Clr Drug Dosing 52.9 ml/min Est GFR ( Amer) 80.1 ml/min Est GFR (Non-Af Amer) 69.1 ml/min BUN/Creatinine Ratio 21.3 H (10-20) Glucose 142 H (70-99(Fasting)) mg/dl POC Glucose 115 H (70-99) mg/dl Calcium 8.7 (8.6-10.3) mg/dl Phosphorus 2.9 (2.5-4.9) mg/dl Magnesium 1.9 (1.7-2.4) mg/dl 12/11/22 12/10/22 Range/Units 08:15 20:30 WBC (4.8-10.8) K/ul RBC (4.20-5.40) M/uL Hgb (12.0-16.0) g/dl Hct (37.0-47.0) % MCV (80.0-100.0) fL MCH (25.0-34.0) pg MCHC (32.0-36.0) g/dL RDW Std Deviation (36.4-46.3) fL RDW Coeff of Jayden (11.5-14.5) % Plt Count (130-400) K/uL MPV (9.4-12.4) fL PT (9.0-12.0) Seconds INR (0.9-1.1) APTT (21.0-31.0) Seconds PTT Ratio Sodium (136-145) mmol/L Potassium (3.5-5.1) mmol/L Chloride (98-107) mmol/L Carbon Dioxide (21-32) mmol/L Anion Gap (3-11) BUN (6-23) mg/dl Creatinine (0.6-1.2) mg/dl Est Cr Clr Drug Dosing ml/min Est GFR ( Amer) ml/min Est GFR (Non-Af Amer) ml/min BUN/Creatinine Ratio (10-20) Glucose (70-99(Fasting)) mg/dl POC Glucose 120 H 115 H (70-99) mg/dl Calcium (8.6-10.3) mg/dl Phosphorus (2.5-4.9) mg/dl Magnesium (1.7-2.4) mg/dl Medications Administered Current Inpatient Medications Acetaminophen (Acetaminophen 500 Mg Tab) 500 mg PO BID PRN PRN Reason: Pain Stop: 01/09/23 03:50 Albuterol (Albut/Ipratrop 3mg/0.5mg Neb 3 Ml Vial) 3 ml INH QIDR [facility]; Protocol Stop: 01/09/23 06:59 Last Admin: 12/11/22 07:02 Dose: 3 ml Atenolol (Atenolol 25 Mg Tablet) 25 mg PO QAM [facility] Stop: 01/09/23 08:59 Last Admin: 12/11/22 09:33 Dose: Not Given Carbidopa/Levodopa (Carbidopa/Levodopa 25/100mg Tab) 2 tab PO QAM [facility] Stop: 01/09/23 08:59 Last Admin: 12/11/22 09:33 Dose: Not Given Carbidopa/Levodopa (Carbidopa/Levodopa 25/100mg Tab) 1.5 tab PO TID@1200,1600,2000 [facility] Stop: 01/09/23 11:59 Last Admin: 12/10/22 20:07 Dose: 1.5 tab Clopidogrel Bisulfate (Clopidogrel Bisulfate 75 Mg Tab) 75 mg PO QAM [facility] Stop: 01/09/23 08:59 Last Admin: 12/11/22 09:33 Dose: Not Given Dextrose (Dextrose 50% 50 Ml Syringe) 25 - 50 ml IV UD PRN; Protocol PRN Reason: Hypoglycemia Protocol Stop: 01/09/23 03:50 Duloxetine HCl (Duloxetine Hcl 30 Mg Cap) 30 mg PO BID [facility] Stop: 01/09/23 08:59 Last Admin: 12/11/22 09:33 Dose: Not Given Enoxaparin Sodium (Enoxaparin Inj 30 Mg/0.3 Ml Syr) 30 mg SQ QAM [facility] Stop: 01/09/23 08:59 Last Admin: 12/11/22 09:33 Dose: Not Given Fluticasone/Vilanterol (Fluticasone/Vilanterol 200/25mcg 14 Puffs/Inhaler) 1 puffs INH DAILY [facility] Stop: 01/10/23 08:59 Last Admin: 12/11/22 09:34 Dose: Not Given Glucagon (Glucagon For Inj 1 Mg Vial) 1 mg SQ UD PRN; Protocol PRN Reason: Hypoglycemia Protocol Stop: 01/09/23 03:50 Glucose (Glucose 10 Tab/Tube) 4 - 8 tab PO UD PRN; Protocol PRN Reason: Hypoglycemia Treatment Stop: 01/09/23 03:50 Glucose (Glucose 40% Gel 15 Gm Tube) 15 - 30 gm PO UD PRN; Protocol PRN Reason: Hypoglycemia Protocol Stop: 01/09/23 03:50 Insulin Aspart (Insulin Aspart Per Unit Charge) 0 units SC ACHS [facility] Stop: 01/09/23 03:50 Last Admin: 12/11/22 09:32 Dose: Not Given Losartan Potassium (Losartan Potassium 25 Mg Tab) 25 mg PO QAM [facility] Stop: 01/10/23 04:14 Last Admin: 12/11/22 05:43 Dose: 25 mg Mirtazapine (Mirtazapine Tab 15 Mg Tab) 15 mg PO HS [facility] Stop: 01/09/23 20:59 Last Admin: 12/10/22 20:06 Dose: 15 mg Miscellaneous (Rivastigmine 9.5 Mg/24 Hour Patch - Order Awaiting Action) 1 each N/A QS [facility] Stop: 01/09/23 07:59 Last Admin: 12/11/22 09:33 Dose: Not Given Miscellaneous (Carbohydrates For Hypoglycemia ) 15 - 30 gm PO UD PRN PRN Reason: Hypoglycemia Protocol Stop: 01/09/23 03:50 Nitroglycerin (Nitroglycerin Sl 0.4 Mg/Tab Tab) 0.4 mg SL UD PRN PRN Reason: Chest Pain Stop: 01/09/23 03:50 Rosuvastatin Calcium (Rosuvastatin Calcium 5 Mg Tab) 5 mg PO DAILY [facility] Stop: 01/09/23 08:59 Last Admin: 12/11/22 09:34 Dose: Not Given Vibegron (Vibegron 75 Mg Tab) 75 mg PO DAILY [facility] Stop: 01/09/23 08:59 Last Admin: 12/11/22 09:34 Dose: Not Given
[2022-12-11 10:13] LABS: Hematocrit (blood only) 34.5 % (37.0-47.0); Hemoglobin 10.9 g/dl (12.0-16.0); Mean Corpuscular Hemoglobin 28.2 pg (25.0-34.0); Mean Corpuscular Hgb Conc 31.6 g/dL (32.0-36.0); Mean Corpuscular Volume 89.4 fL (80.0-100.0); Mean Platelet Volume 9.3 fL (9.4-12.4); Platelet Count 294 K/uL (130-400); RDW Coefficient of Variation 14.7 % (11.5-14.5); RDW Standard Deviation 47.8 fL (36.4-46.3); Red Blood Count 3.86 M/uL (4.20-5.40)
[2022-12-11 10:24] LABS: Partial Thromboplastin Time 28.2 Seconds (21.0-31.0); Prothrombin Time 11.3 Seconds (9.0-12.0)
[2022-12-11 10:33] LABS: BUN Creatinine Ratio 21.3 (10-20); Calcium 8.7 mg/dl (8.6-10.3); Creatinine Clr Calc Pharmacy 52.9 ml/min; Est GFR (African American) 80.1 ml/min; Est GFR (Non-African American) 69.1 ml/min; Magnesium 1.9 mg/dl (1.7-2.4); Phosphorus 2.9 mg/dl (2.5-4.9); Potassium 4.4 mmol/L (3.5-5.1)
--- NOTE | 2022-12-11 14:04 | Electroencephalogram ---
EEG Procedure Note Date of Service December 11, 2022 Start / End Times Start Time: 11:58 AM End Time: 12:18 PM Referring Physician Efren History Recurrent episodes of unresponsiveness, evaluate for seizure activity Home Medication List Medication Instructions Recorded Confirmed Type albuterol sulfate 90 mcg/actuation 2 puff inhalation Q6H PRN 02/06/22 12/10/22 History aerosol inhaler Shortness Of Breath Or Wheezing carbidopa 25 mg-levodopa 100 mg See Rx Instructions .Route .COMPLEX 02/06/22 12/10/22 History tablet duloxetine 30 mg capsule,delayed 30 mg PO BID 02/06/22 12/10/22 History release glimepiride 1 mg tablet 1 mg PO DAILY 02/06/22 12/10/22 History losartan 25 mg tablet 25 mg PO QAM 02/06/22 12/10/22 History metformin 1,000 mg tablet 1,000 mg PO BIDM 02/06/22 12/10/22 History rivastigmine 9.5 mg/24 hour 1 patch topical QAM 02/06/22 12/10/22 History transdermal patch umeclidinium 62.5 mcg/actuation 1 inh inhalation QAM 02/06/22 12/10/22 History blister powder for inhalation (Incruse Ellipta) mirabegron 50 mg tablet,extended 50 mg PO QAM 07/19/22 12/10/22 History release 24 hr (Myrbetriq) sitagliptin phosphate 100 mg 100 mg PO QAM 07/19/22 12/10/22 History tablet (Januvia) clopidogrel 75 mg tablet 75 mg PO QAM #30 tabs 09/12/22 12/10/22 Rx budesonide-formoterol HFA 160 2 puff inhalation BID 10/13/22 12/10/22 History mcg-4.5 mcg/actuation aerosol inhaler rosuvastatin 5 mg tablet 5 mg PO DAILY 10/13/22 12/10/22 History bisoprolol 2.5 1 tab PO DAILY 11/16/22 12/10/22 History mg-hydrochlorothiazide 6.25 mg tablet ipratropium 0.5 mg-albuterol 3 mg 3 ml inhalation QID 11/16/22 12/10/22 History (2.5 mg base)/3 mL nebulization soln acetaminophen 500 mg tablet 500 mg PO BID PRN Pain 12/10/22 12/10/22 History (Tylenol Extra Strength) codeine 10 mg-guaifenesin 100 mg/5 5 ml PO Q4H PRN Cough 12/10/22 12/10/22 History mL oral liquid (Guaifenesin AC) nitroglycerin 0.4 mg sublingual 0.4 mg sublingual DIRECTED PRN 12/10/22 12/10/22 History tablet (Nitrostat) Chest Pain Inpatient Medication List Albuterol (Albut/Ipratrop 3mg/0.5mg Neb 3 Ml Vial) 3 ml INH QIDR [facility]; Protocol Stop: 01/09/23 06:59 Last Admin: 12/11/22 11:10 Dose: 3 ml Documented By: Admin: 12/11/22 07:02 Dose: 3 ml Documented By: Admin: 12/10/22 19:18 Dose: 3 ml Documented By: Admin: 12/10/22 14:22 Dose: 3 ml Documented By: Admin: 12/10/22 12:10 Dose: Not Given Documented By: Admin: 12/10/22 07:19 Dose: 3 ml Documented By: EDILMA Atenolol (Atenolol 25 Mg Tablet) 25 mg PO QAM [facility] Stop: 01/09/23 08:59 Last Admin: 12/11/22 10:54 Dose: 25 mg Documented By: Admin: 12/10/22 09:39 Dose: 25 mg Documented By: SULTANA Carbidopa/Levodopa (Carbidopa/Levodopa 25/100mg Tab) 2 tab PO QAM [facility] Stop: 01/09/23 08:59 Last Admin: 12/11/22 11:32 Dose: Not Given Documented By: Admin: 12/10/22 09:39 Dose: 2 tab Documented By: SULTANA Carbidopa/Levodopa (Carbidopa/Levodopa 25/100mg Tab) 1.5 tab PO TID@1200,1600,2000 [facility] Stop: 01/09/23 11:59 Last Admin: 12/11/22 11:32 Dose: 1.5 tab Documented By: Admin: 12/10/22 20:07 Dose: 1.5 tab Documented By: Admin: 12/10/22 17:43 Dose: 1.5 tab Documented By: Admin: 12/10/22 12:55 Dose: 1.5 tab Documented By: ACC Clopidogrel Bisulfate (Clopidogrel Bisulfate 75 Mg Tab) 75 mg PO QAM [facility] Stop: 01/09/23 08:59 Last Admin: 12/11/22 10:54 Dose: 75 mg Documented By: Admin: 12/10/22 09:39 Dose: 75 mg Documented By: NRB Duloxetine HCl (Duloxetine Hcl 30 Mg Cap) 30 mg PO BID [facility] Stop: 01/09/23 08:59 Last Admin: 12/11/22 11:33 Dose: 30 mg Documented By: Admin: 12/10/22 20:06 Dose: 30 mg Documented By: Admin: 12/10/22 09:38 Dose: 30 mg Documented By: NRWanda Enoxaparin Sodium (Enoxaparin Inj 30 Mg/0.3 Ml Syr) 30 mg SQ QAM [facility] Stop: 01/09/23 08:59 Last Admin: 12/11/22 10:54 Dose: 30 mg Documented By: Admin: 12/10/22 09:40 Dose: 30 mg Documented By: SULTANA Fluticasone/Vilanterol (Fluticasone/Vilanterol 200/25mcg 14 Puffs/Inhaler) 1 puffs INH DAILY [facility] Stop: 01/10/23 08:59 Last Admin: 12/11/22 10:56 Dose: Not Given Documented By: KASSANDRA Insulin Aspart (Insulin Aspart Per Unit Charge) 0 units SC ACHS [facility] Stop: 01/09/23 03:50 Last Admin: 12/11/22 12:32 Dose: 3 units Documented By: KASSANDRA Co-signed By: RRR Admin: 12/11/22 09:32 Dose: Not Given Documented By: Admin: 12/10/22 20:37 Dose: Not Given Documented By: Admin: 12/10/22 18:08 Dose: Not Given Documented By: Admin: 12/10/22 13:27 Dose: 3 units Documented By: ACC Co-signed By: KRISTY Admin: 12/10/22 05:27 Dose: Not Given Documented By: EMB Co-signed By: EDGAR Losartan Potassium (Losartan Potassium 25 Mg Tab) 25 mg PO QAM [facility] Stop: 01/10/23 04:14 Last Admin: 12/11/22 05:43 Dose: 25 mg Documented By: MARCUS Mirtazapine (Mirtazapine Tab 15 Mg Tab) 15 mg PO HS [facility] Stop: 01/09/23 20:59 Last Admin: 12/10/22 20:06 Dose: 15 mg Documented By: AMRCUS Miscellaneous (Rivastigmine 9.5 Mg/24 Hour Patch - Order Awaiting Action) 1 each N/A QS [facility] Stop: 01/09/23 07:59 Last Admin: 12/11/22 09:33 Dose: Not Given Documented By: Admin: 12/10/22 23:44 Dose: Not Given Documented By: Admin: 12/10/22 16:13 Dose: Not Given Documented By: Admin: 12/10/22 16:12 Dose: Not Given Documented By: KASSANDRA Rosuvastatin Calcium (Rosuvastatin Calcium 5 Mg Tab) 5 mg PO DAILY [facility] Stop: 01/09/23 08:59 Last Admin: 12/11/22 10:55 Dose: 5 mg Documented By: Admin: 12/10/22 09:38 Dose: 5 mg Documented By: SULTANA Vibegron (Vibegron 75 Mg Tab) 75 mg PO DAILY [facility] Stop: 01/09/23 08:59 Last Admin: 12/11/22 10:54 Dose: 75 mg Documented By: Admin: 12/10/22 09:38 Dose: 75 mg Documented By: SULTANA Discontinued Medications Sodium Chloride (Nss 1000ml) 1,000 mls @ 999 mls/hr IV .Q1H1M ONE Stop: 12/10/22 01:13 Last Infusion: 12/10/22 01:58 Dose: 0 mls/hr Documented By: Admin: 12/10/22 00:22 Dose: 999 mls/hr Documented By: MARÍA ELENA Magnesium Sulfate/Dextrose (Magnesium Sulfate / D5w) 1 gm in 100 mls @ 50 mls/hr IV ONE ONE Stop: 12/10/22 03:22 Last Infusion: 12/10/22 05:25 Dose: 0 mls/hr Documented By: Admin: 12/10/22 02:03 Dose: 50 mls/hr Documented By: SAVANAH Potassium Chloride/Sodium Chloride (Normal Saline W/20 Meq Kcl) 20 meq in 1,000 mls @ 50 mls/hr IV .Q20H ONE; Protocol Stop: 12/10/22 23:02 Last Infusion: 12/11/22 01:12 Dose: 0 mls/hr Documented By: Admin: 12/10/22 05:12 Dose: 50 mls/hr Documented By: SAVANAH Ioversol (Ioversol 350 Mg 125ml Prefilled Syringe) 125 ml IV ONCE ONE Stop: 12/09/22 23:57 Last Admin: 12/09/22 23:56 Dose: 116 ml Documented By: MERCEDEZ Losartan Potassium (Losartan Potassium 25 Mg Tab) 25 mg PO QAM [facility] Stop: 01/09/23 08:59 Last Admin: 12/10/22 09:38 Dose: 25 mg Documented By: SULTANA Miscellaneous (Symbicort 160mcg/4.5mcg - Order Awaiting Action) 1 each N/A QS [facility] Stop: 01/09/23 07:59 Last Admin: 12/10/22 16:20 Dose: Not Given Documented By: KASSANDRA Umeclidinium Rossiter (Umeclidinium Rossiter 62.5mcg/Blister 7 Puffs/Inhaler) 1 puffs INH QAM [facility] Stop: 01/09/23 08:59 Last Admin: 12/10/22 16:12 Dose: Not Given Documented By: KASSANDRA Description This is a 21 electrode EEG with a single channel dedicated to limited EKG. The electrodes were placed in accordance with the International 10-20 system. The predominant background rhythm consists of moderate amplitude, fairly persistent generalized 6 Hz slowing. There is a symmetric frontal beta rhythm. Photic stimulation is unremarkable. Hyperventilation is not performed. There is no lateralized or focal slowing. There are no epileptiform abnormalities. Sleep not observed. Interpretation Mildly abnormal awake/asleep EEG with evidence of a mild nonspecific generalized encephalopathy. No epileptiform abnormalities appreciated. [facility] EEG Procedure Codes Indication for Procedure (1) Episode of unresponsiveness: (2) AMS (altered mental status): Neurology Neurology: 70898 EEG include record awake & drowsy
[2022-12-11] MEDS: MIRTAZAPINE TAB 15 MG TAB PO SCH ×2 (21:07→21:30)
[2022-12-12] MEDS ORDERED: hydrALAZINE HCL 20 MG/ML VIAL IV PRN (03:30)
[2022-12-12 06:25] LABS: Hemoglobin 10.7 g/dl (12.0-16.0); Mean Corpuscular Hemoglobin 28.1 pg (25.0-34.0); Mean Corpuscular Hgb Conc 31.5 g/dL (32.0-36.0); Mean Corpuscular Volume 89.2 fL (80.0-100.0); Mean Platelet Volume 9.6 fL (9.4-12.4); Platelet Count 303 K/uL (130-400); RDW Coefficient of Variation 14.7 % (11.5-14.5); RDW Standard Deviation 48.1 fL (36.4-46.3); Red Blood Count 3.81 M/uL (4.20-5.40); White Blood Count 7.89 K/ul (4.8-10.8)
[2022-12-12] MEDS: ALBUT/IPRATROP 3MG/0.5MG NEB 3 ML VIAL INH SCH ×4 (07:09→19:09)
[2022-12-12 07:40] LABS: BUN Creatinine Ratio 22.4 (10-20); Calcium 8.9 mg/dl (8.6-10.3); Creatinine Clr Calc Pharmacy 56.4 ml/min; Est GFR (African American) 85.3 ml/min; Est GFR (Non-African American) 73.6 ml/min; Magnesium 1.9 mg/dl (1.7-2.4); Phosphorus 3.3 mg/dl (2.5-4.9)
--- NOTE | 2022-12-12 07:52 | Hospitalist Progress Note ---
Date of Service December 12, 2022 Assessment & Plan (1) Episode of unresponsiveness: Plan: Recurrent episodes hx recurrent CVA, recent cerebellar CVA hx Parkinson's dementia Episodic unresponsiveness may be sleep cycle related especially given patient's Parkinson's as per inpatient Neurology consult from August 2022 -- CT head: No acute process --No signs of infection at this point -- Neurologist consulted: Presentation likely due to disrupted sleep cycle in the context of advancing Parkinson's and associated dementia Recommend mirtazapine 15 mg at bedtime --Discussed with patient's sisters at the bedside, answered all questions regarding mirtazapine They agree for trial of mirtazapine, observation while in the hospital 12/11 stroke alert this AM as pt unresponsive again CT head negative Discussed w/ neurology - EEG ordered Pt woke up when went to CT and then close to baseline 12/12 Pt feels well today and at her baseline EEG negat. mirtazapine decreased to 7.5 last evening Pt has an appointment w/ her outpt neurologist tmrw hx CAD status post stent asthma/COPD as per records, stable hypertension, stable hyperlipidemia on statin Rx DM2 on oral medications, well-controlled as of recent hemoglobin A1c of 6.5 last month Chronic anemia, hemoglobin stable past tobacco abuse. PT OT eval DVT prophylaxis per Lovenox subcu Full code as per sisters. Patient sisters Ms. Itzel Oakes, contact #[phone]. Ms. Jolanta Vail, contact #[phone]. Disposition Patient lives with one of her sisters at home Admission and Anticipated Discharge Date Admission Date: December 10, 2022 Subjective Follow-up for episodes of unresponsiveness, etc. Pt w/ another episode of unresponsiveness yesterday AM -> Stroke alert called by RN. CT head stat obtained and negative. Dr. Chavarria and [facility] (Dr. Ann) contacted Discussed w/ [facility] - not likely CVA, recommended EEG -> EEG was obtained Discussed w/ Dr. Chavarria - and also decreased mirtazapine Today pt feels well and seems at her baseline, reports no discomfort or complaints Sisters at bedside updated- report pt has appointment tmrw w/ her outpt neurologist - if she feels well tmrw they would like to take her to the appointment Denies headache, dizziness, nausea or vomiting, chest pain, shortness of breath, abdominal pain, no problems urination or bowel movement No any other symptoms Review of Systems Review of Systems: All systems reviewed & are unremarkable except as noted in Subjective Physical Exam Physical Exam: General- elderly F in NAD Eyes- anicteric Neck- no JVD Lungs- clear breath sounds bilaterally, no rales/wheezes Heart- normal rate, regular rhythm; no murmurs Abdomen- normal bowel sounds, nondistended, soft, nontender Extremities- no pretibial edema, no calf tenderness Neuro- alert, oriented, answers appropriately; speech fluent, moves extremities Skin- warm & dry Results & Data Results & Data Vital Signs (Past 12 Hours) Vital Signs Temp Pulse Pulse Resp BP BP Pulse Ox 12/12/22 07:10 57 L 18 92 12/12/22 05:52 149/74 H 12/11/22 22:02 66 12/11/22 21:00 12/12/22 03:20 190/78 H 12/12/22 03:10 35.8 C L 72 18 208/82 H 97 12/11/22 23:14 36.6 C 64 18 146/68 H 95 12/11/22 19:59 36.4 C L 73 18 104/58 L 94 O2 Del Method 12/12/22 07:10 Room Air 12/12/22 05:52 12/11/22 22:02 12/11/22 21:00 Room Air 12/12/22 03:20 12/12/22 03:10 Room Air 12/11/22 23:14 Room Air 12/11/22 19:59 Room Air Laboratory Results 12/12/22 12/12/22 12/11/22 Range/Units 05:42 05:42 20:01 WBC 7.89 (4.8-10.8) K/ul RBC 3.81 L (4.20-5.40) M/uL Hgb 10.7 L (12.0-16.0) g/dl Hct 34.0 L (37.0-47.0) % MCV 89.2 (80.0-100.0) fL MCH 28.1 (25.0-34.0) pg MCHC 31.5 L (32.0-36.0) g/dL RDW Std Deviation 48.1 H (36.4-46.3) fL RDW Coeff of Jayden 14.7 H (11.5-14.5) % Plt Count 303 (130-400) K/uL MPV 9.6 (9.4-12.4) fL PT (9.0-12.0) Seconds INR (0.9-1.1) APTT (21.0-31.0) Seconds PTT Ratio Sodium 142 (136-145) mmol/L Potassium 4.0 (3.5-5.1) mmol/L Chloride 109 H (98-107) mmol/L Carbon Dioxide 28 (21-32) mmol/L Anion Gap 5 (3-11) BUN 17 (6-23) mg/dl Creatinine 0.76 (0.6-1.2) mg/dl Est Cr Clr Drug Dosing 56.4 ml/min Est GFR ( Amer) 85.3 ml/min Est GFR (Non-Af Amer) 73.6 ml/min BUN/Creatinine Ratio 22.4 H (10-20) Glucose 129 H (70-99(Fasting)) mg/dl POC Glucose 135 H (70-99) mg/dl Calcium 8.9 (8.6-10.3) mg/dl Phosphorus 3.3 (2.5-4.9) mg/dl Magnesium 1.9 (1.7-2.4) mg/dl 12/11/22 12/11/22 12/11/22 Range/Units 16:53 11:16 10:00 WBC (4.8-10.8) K/ul RBC (4.20-5.40) M/uL Hgb (12.0-16.0) g/dl Hct (37.0-47.0) % MCV (80.0-100.0) fL MCH (25.0-34.0) pg MCHC (32.0-36.0) g/dL RDW Std Deviation (36.4-46.3) fL RDW Coeff of Jayden (11.5-14.5) % Plt Count (130-400) K/uL MPV (9.4-12.4) fL PT 11.3 (9.0-12.0) Seconds INR 1.0 (0.9-1.1) APTT 28.2 (21.0-31.0) Seconds PTT Ratio 1.0 Sodium (136-145) mmol/L Potassium (3.5-5.1) mmol/L Chloride (98-107) mmol/L Carbon Dioxide (21-32) mmol/L Anion Gap (3-11) BUN (6-23) mg/dl Creatinine (0.6-1.2) mg/dl Est Cr Clr Drug Dosing ml/min Est GFR ( Amer) ml/min Est GFR (Non-Af Amer) ml/min BUN/Creatinine Ratio (10-20) Glucose (70-99(Fasting)) mg/dl POC Glucose 120 H 133 H (70-99) mg/dl Calcium (8.6-10.3) mg/dl Phosphorus (2.5-4.9) mg/dl Magnesium (1.7-2.4) mg/dl 12/11/22 12/11/22 12/11/22 Range/Units 09:54 09:54 09:12 WBC 6.00 (4.8-10.8) K/ul RBC 3.86 L (4.20-5.40) M/uL Hgb 10.9 L (12.0-16.0) g/dl Hct 34.5 L (37.0-47.0) % MCV 89.4 (80.0-100.0) fL MCH 28.2 (25.0-34.0) pg MCHC 31.6 L (32.0-36.0) g/dL RDW Std Deviation 47.8 H (36.4-46.3) fL RDW Coeff of Jayden 14.7 H (11.5-14.5) % Plt Count 294 (130-400) K/uL MPV 9.3 L (9.4-12.4) fL PT (9.0-12.0) Seconds INR (0.9-1.1) APTT (21.0-31.0) Seconds PTT Ratio Sodium 141 (136-145) mmol/L Potassium 4.4 (3.5-5.1) mmol/L Chloride 110 H (98-107) mmol/L Carbon Dioxide 28 (21-32) mmol/L Anion Gap 3 (3-11) BUN 17 (6-23) mg/dl Creatinine 0.80 (0.6-1.2) mg/dl Est Cr Clr Drug Dosing 52.9 ml/min Est GFR ( Amer) 80.1 ml/min Est GFR (Non-Af Amer) 69.1 ml/min BUN/Creatinine Ratio 21.3 H (10-20) Glucose 142 H (70-99(Fasting)) mg/dl POC Glucose 115 H (70-99) mg/dl Calcium 8.7 (8.6-10.3) mg/dl Phosphorus 2.9 (2.5-4.9) mg/dl Magnesium 1.9 (1.7-2.4) mg/dl 12/11/22 Range/Units 08:15 WBC (4.8-10.8) K/ul RBC (4.20-5.40) M/uL Hgb (12.0-16.0) g/dl Hct (37.0-47.0) % MCV (80.0-100.0) fL MCH (25.0-34.0) pg MCHC (32.0-36.0) g/dL RDW Std Deviation (36.4-46.3) fL RDW Coeff of Jayden (11.5-14.5) % Plt Count (130-400) K/uL MPV (9.4-12.4) fL PT (9.0-12.0) Seconds INR (0.9-1.1) APTT (21.0-31.0) Seconds PTT Ratio Sodium (136-145) mmol/L Potassium (3.5-5.1) mmol/L Chloride (98-107) mmol/L Carbon Dioxide (21-32) mmol/L Anion Gap (3-11) BUN (6-23) mg/dl Creatinine (0.6-1.2) mg/dl Est Cr Clr Drug Dosing ml/min Est GFR ( Amer) ml/min Est GFR (Non-Af Amer) ml/min BUN/Creatinine Ratio (10-20) Glucose (70-99(Fasting)) mg/dl POC Glucose 120 H (70-99) mg/dl Calcium (8.6-10.3) mg/dl Phosphorus (2.5-4.9) mg/dl Magnesium (1.7-2.4) mg/dl Medications Administered Current Inpatient Medications Acetaminophen (Acetaminophen 500 Mg Tab) 500 mg PO BID PRN PRN Reason: Pain Stop: 01/09/23 03:50 Albuterol (Albut/Ipratrop 3mg/0.5mg Neb 3 Ml Vial) 3 ml INH QIDR [facility]; Protocol Stop: 01/09/23 06:59 Last Admin: 12/12/22 07:09 Dose: 3 ml Atenolol (Atenolol 25 Mg Tablet) 25 mg PO QAM [facility] Stop: 01/09/23 08:59 Last Admin: 12/11/22 10:54 Dose: 25 mg Carbidopa/Levodopa (Carbidopa/Levodopa 25/100mg Tab) 2 tab PO QAM [facility] Stop: 01/09/23 08:59 Last Admin: 12/11/22 11:32 Dose: Not Given Carbidopa/Levodopa (Carbidopa/Levodopa 25/100mg Tab) 1.5 tab PO T ID@1200,1600,2000 [facility] Stop: 01/09/23 11:59 Last Admin: 12/11/22 21:28 Dose: Not Given Clopidogrel Bisulfate (Clopidogrel Bisulfate 75 Mg Tab) 75 mg PO QAM [facility] Stop: 01/09/23 08:59 Last Admin: 12/11/22 10:54 Dose: 75 mg Dextrose (Dextrose 50% 50 Ml Syringe) 25 - 50 ml IV UD PRN; Protocol PRN Reason: Hypoglycemia Protocol Stop: 01/09/23 03:50 Duloxetine HCl (Duloxetine Hcl 30 Mg Cap) 30 mg PO BID [facility] Stop: 01/09/23 08:59 Last Admin: 12/11/22 21:29 Dose: Not Given Enoxaparin Sodium (Enoxaparin Inj 30 Mg/0.3 Ml Syr) 30 mg SQ QAM [facility] Stop: 01/09/23 08:59 Last Admin: 12/11/22 10:54 Dose: 30 mg Fluticasone/Vilanterol (Fluticasone/Vilanterol 200/25mcg 14 Puffs/Inhaler) 1 puffs INH DAILY [facility] Stop: 01/10/23 08:59 Last Admin: 12/11/22 10:56 Dose: Not Given Glucagon (Glucagon For Inj 1 Mg Vial) 1 mg SQ UD PRN; Protocol PRN Reason: Hypoglycemia Protocol Stop: 01/09/23 03:50 Glucose (Glucose 10 Tab/Tube) 4 - 8 tab PO UD PRN; Protocol PRN Reason: Hypoglycemia Treatment Stop: 01/09/23 03:50 Glucose (Glucose 40% Gel 15 Gm Tube) 15 - 30 gm PO UD PRN; Protocol PRN Reason: Hypoglycemia Protocol Stop: 01/09/23 03:50 Hydralazine HCl (Hydralazine Hcl 20 Mg/Ml Vial) 7.5 mg IV Q6H PRN PRN Reason: Hypertension Stop: 01/11/23 03:29 Last Admin: 12/12/22 03:50 Dose: 7.5 mg Insulin Aspart (Insulin Aspart Per Unit Charge) 0 units SC ACHS [facility] Stop: 01/09/23 03:50 Last Admin: 12/11/22 20:58 Dose: Not Given Losartan Potassium (Losartan Potassium 25 Mg Tab) 25 mg PO QAM [facility] Stop: 01/10/23 04:14 Last Admin: 12/11/22 05:43 Dose: 25 mg Mirtazapine (Mirtazapine Tab 15 Mg Tab) 7.5 mg PO HS [facility] Stop: 01/10/23 20:59 Last Admin: 12/11/22 21:30 Dose: Not Given Miscellaneous (Carbohydrates For Hypoglycemia ) 15 - 30 gm PO UD PRN PRN Reason: Hypoglycemia Protocol Stop: 01/09/23 03:50 Miscellaneous (Remove Patch) 1 each N/A QAM [facility] Stop: 01/11/23 08:59 Miscellaneous (Check Rivastigmine Patch Placement) 1 each N/A QS [facility] Stop: 01/11/23 07:59 Nitroglycerin (Nitroglycerin Sl 0.4 Mg/Tab Tab) 0.4 mg SL UD PRN PRN Reason: Chest Pain Stop: 01/09/23 03:50 Rivastigmine (Rivastigmine Patch) 1 patch TD QAM [facility] Stop: 01/11/23 08:59 Rosuvastatin Calcium (Rosuvastatin Calcium 5 Mg Tab) 5 mg PO DAILY [facility] Stop: 01/09/23 08:59 Last Admin: 12/11/22 10:55 Dose: 5 mg Vibegron (Vibegron 75 Mg Tab) 75 mg PO DAILY [facility] Stop: 01/09/23 08:59 Last Admin: 12/11/22 10:54 Dose: 75 mg
[2022-12-12] MEDS: INSULIN ASPART PER UNIT CHARGE SC SCH ×4 (09:58→21:56)
[2022-12-12] MEDS: [UNRECOGNIZED DRUG - REMARK] SCH ×2 (09:58→17:36)
[2022-12-12] MEDS: CARBIDOPA/LEVODOPA 25/100MG TAB PO SCH ×4 (10:00→20:27)
[2022-12-12] MEDS: LOSARTAN POTASSIUM 25 MG TAB PO SCH (10:01)
[2022-12-12] MEDS: ATENOLOL 25 MG TABLET PO SCH (10:01)
[2022-12-12] MEDS: CLOPIDOGREL BISULFATE 75 MG TAB PO SCH (10:01)
[2022-12-12] MEDS: ROSUVASTATIN CALCIUM 5 MG TAB PO SCH (10:01)
[2022-12-12] MEDS: RIVASTIGMINE PATCH TD SCH (10:02)
[2022-12-12] MEDS: VIBEGRON 75 MG TAB PO SCH (10:02)
[2022-12-12] MEDS: DULoxetine HCL 30 MG CAP PO SCH ×2 (10:03→20:28)
[2022-12-12] MEDS: FLUTICASONE/VILANTEROL 200/25MCG 14 PUFFS/INHALER INH SCH (10:03)
[2022-12-12] MEDS: ENOXAPARIN INJ 30 MG/0.3 ML SYR SQ SCH (10:03)
[2022-12-12] MEDS: MIRTAZAPINE TAB 15 MG TAB PO SCH (20:29)
[2022-12-13] MEDS: [UNRECOGNIZED DRUG - REMARK] SCH ×2 (00:37→09:00)
[2022-12-13] MEDS: ALBUT/IPRATROP 3MG/0.5MG NEB 3 ML VIAL INH SCH (07:07)
[2022-12-13] MEDS: VIBEGRON 75 MG TAB PO SCH (08:55)
[2022-12-13] MEDS: LOSARTAN POTASSIUM 25 MG TAB PO SCH (08:55)
[2022-12-13] MEDS: CLOPIDOGREL BISULFATE 75 MG TAB PO SCH (08:57)
[2022-12-13] MEDS: ATENOLOL 25 MG TABLET PO SCH (08:57)
[2022-12-13] MEDS: ROSUVASTATIN CALCIUM 5 MG TAB PO SCH (08:57)
[2022-12-13] MEDS: ENOXAPARIN INJ 30 MG/0.3 ML SYR SQ SCH (08:58)
[2022-12-13] MEDS: DULoxetine HCL 30 MG CAP PO SCH (08:58)
[2022-12-13] MEDS: CARBIDOPA/LEVODOPA 25/100MG TAB PO SCH (08:58)
[2022-12-13] MEDS: FLUTICASONE/VILANTEROL 200/25MCG 14 PUFFS/INHALER INH SCH (09:00)
[2022-12-13] MEDS: RIVASTIGMINE PATCH TD SCH (09:00)
[2022-12-13] MEDS: INSULIN ASPART PER UNIT CHARGE SC SCH (09:05)
--- NOTE | 2022-12-13 10:24 | Discharge Summary ---
Date of Service December 13, 2022 Admission HPI Per Admitting Provider History obtained from family and records. Unable to obtain history from patient secondary to dementia Medical history significant for CAD status post stent, recurrent CVA, asthma/COPD as per records, hypertension, hyperlipidemia, DM2 on oral medications, Parkinson's disease with cognitive impairment, chronic anemia (baseline hemoglobin 10-11), past tobacco abuse. Six admissions for 2022. Last confinement last month for confusion secondary to UTI. Patient discharged to rehab facility before going home. Patient unarousable at home for hours last night. No witnessed seizures. Patient breathing and with pulse as per family. Patient brought to the ER for evaluation. Patient more awake after IVF administration. Patient denies headache, chest pain, SOB, abdominal pain. She does not remember events prior to hospital arrival. Patient back to baseline mentation as per sisters. 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 Admission Exam Per Admitting Provider GENERAL: Demented, no respiratory distress SKIN: Pallor, warm HEENT: Pale palpebral conjunctivae, no ptosis, dry buccal mucosa NECK : Supple, no tenderness CHEST : CTA, no tenderness HEART : RRR, no obvious murmurs ABDOMEN: Some distention, nontender RECTAL : Intact sphincter, brown stool (FOBT negative) EXTREMITIES : Minimal LE swelling, no LE tenderness, overlapping/underlapping toes both feet NEUROLOGIC : Demented, no facial asymmetry, gait and stance not assessed Principal Diagnosis Transient episode of AMS in the setting of Parkinson's dementia Discharge Exam General- elderly F in NAD Eyes- anicteric Neck- no JVD Lungs- clear breath sounds bilaterally, no rales/wheezes Heart- normal rate, regular rhythm; no murmurs Abdomen- normal bowel sounds, nondistended, soft, nontender Extremities- no pretibial edema, no calf tenderness Neuro- alert, oriented, answers simple questions appropriately; speech fluent, moves extremities Skin- warm & dry Discharge Data Allergies Allergy/AdvReac Type Severity Reaction Status Date / Time fluconazole Allergy Severe hives,rash,respiratory Verified 12/09/22 23:53 difficulty fluticasone Allergy Severe SHORT OF Verified 12/10/22 13:41 BREATH/RASH hydrochlorothiazide Allergy Severe Rash Verified 12/09/22 23:53 triamterene Allergy Severe Rash Verified 12/09/22 23:53 erythromycin base Allergy Intermediate RASH/NAUSEA Verified 12/09/22 23:53 /VOMITING isosorbide Allergy Intermediate Headache Verified 12/09/22 23:53 NSAIDS (Non-Steroidal Allergy Intermediate hives,rash Verified 12/09/22 23:53 Anti-Inflamma amifostine Allergy Unknown Unknown Verified 12/09/22 23:53 lisinopril Allergy Unknown Unknown Verified 12/09/22 23:53 Penicillins Allergy Unknown Unknown Verified 12/09/22 23:53 ethyl alcohol AdvReac Unknown Unknown Verified 12/09/22 23:53 Consultations 12/10/22 00:52 ED Decision to Admit Stat 12/10/22 03:51 Consult Neurology Routine Ordered Studies 12/09/22 23:38 CT angio head w con Stat IMPRESSION: 1. No large vessel occlusion. 2. Atherosclerosis resulting in severe stenosis of the V4 segment of the right vertebral artery and moderate stenosis of the V4 segment of the left vertebral artery. 3. Severe stenosis of the A2 segment of the left anterior cerebral artery. 4. Mild stenosis of the M1 segments of the middle cerebral arteries, left greater than right. 5. Mild stenosis of the bilateral posterior cerebral arteries. CT angio neck with con Stat IMPRESSION: No dissection, pseudoaneurysm, or hemodynamically significant stenosis of the carotid or vertebral arteries. CT head/brain wo con Stat CT head/brain wo con Stat FINDINGS: Brain: Global parenchymal volume loss with chronic microvascular ischemic changes and chronic left frontal lobe infarction. No hemorrhage. Ventricles: No ventriculomegaly. Bones/joints: Chronic left lamina papyracea fracture. Soft tissues: Unremarkable. Sinuses: Unremarkable as visualized. Mastoid air cells: Unremarkable as visualized. No mastoid effusion. Orbits: The lateral lens replacement. IMPRESSION: 1. No intracranial hemorrhage or evidence of acute large territorial infarction. 2. Global parenchymal volume loss with chronic microvascular ischemic changes and chronic left frontal lobe infarction. 12/11/22 09:24 CT head/brain wo con Stat FINDINGS: No acute intracranial hemorrhage, midline shift, intracranial mass, hydrocephalus, territorial ischemia or abnormal extra-axial collection. Involutional changes with chronic microvascular ischemic disease. Chronic left frontal lobe infarct. The calvarium is intact. Prior bilateral lens repair. The paranasal sinuses, mastoid air cells, and middle ear cavities are clear. IMPRESSION: Chronic findings without acute intracranial abnormality. Hospital Course (1) Episode of unresponsiveness: Recurrent episodes hx recurrent CVA, recent cerebellar CVA hx Parkinson's dementia Episodic unresponsiveness may be sleep cycle related especially given patient's Parkinson's as per inpatient Neurology consult from August 2022 -- CT head: No acute process --No signs of infection at this point -- Neurologist consulted: Presentation likely due to disrupted sleep cycle in the context of advancing Parkinson's and associated dementia Recommend mirtazapine at bedtime --Discussed with patient's sisters at the bedside, answered all questions regarding mirtazapine They agree for trial of mirtazapine, observation while in the hospital 12/11 stroke alert this AM as pt unresponsive again CT head negative Discussed w/ neurology - EEG ordered Pt woke up when went to CT and then close to baseline 12/12 Pt feels well today and at her baseline EEG negat. mirtazapine decreased to 7.5 last evening Pt has an appointment w/ her outpt neurologist tmrw 12/13 Pt is awake and feels well. Plan for discharge. Outpt neurology appointment scheduled already for this PM. Pt and her sisters want to discuss if they should continue mirtazapine 7.5 mg at bedtime with her outpt neurologist. hx CAD status post stent asthma/COPD as per records, stable hypertension, stable hyperlipidemia on statin Rx DM2 on oral medications, well-controlled as of recent hemoglobin A1c of 6.5 last month Chronic anemia, hemoglobin stable past tobacco abuse. Total Time Total Time Spent Total Time Spent (In Minutes): 40 Discharge Plan Discharge Items Patient Disposition: Home - Self-Care Reason For Visit: TRANSIENT AMS Discharge Diagnosis: Transient episode of AMS in the setting of Parkinson's dementia Activity: Per Instructions section Non-emergency contact: Primary Care Provider and Neurologist Call non-emergency contact if: you have any medication questions and your symptoms worsen Follow-up/Referrals: Cheryl Ruelas MD [Physician] - (Date & Time 12/13/2022 1:00 PM Provider Cheryl Ruelas MD Department Neurology [facility] ) Jag Stover MD [Primary Care Provider] - (Date & Time 12/17/2022 11:00 AM Provider Jag Stover MD Department Family Practice [facility] ) Diet: Carb Consistent or DM2 and Heart Healthy Diet Texture: Dental soft (bite-sized) Addtl Attending Provider Instructions: Follow up with your primary care doctor and your neurologist. It was recommended by the neurologist in the hospital to take mirtazapine 7.5 mg nightly. Discuss this with your neurologist at your appointment. Pending Studies at Discharge: No Stand-Alone Forms: My [facility], Smoking Cessation Medications and DC Order Prescriptions: Continued Myrbetriq 50 mg tablet extended release 24 hr 50 mg PO QAM Januvia 100 mg tablet 100 mg PO QAM rosuvastatin 5 mg Tablet 5 mg PO DAILY budesonide-formoterol 160-4.5 mcg/actuation Hfa Aerosol Inhaler 2 puff INHALATION BID Rx Instructions: 0830 & 1630 acetaminophen [Tylenol Extra Strength] 500 mg Tablet 500 mg PO BID PRN (Reason: Pain) nitroglycerin [Nitrostat] 0.4 mg Tablet, Sublingual 0.4 mg sublingual DIRECTED PRN (Reason: Chest Pain) codeine-guaifenesin [Guaifenesin AC] 10-100 mg/5 mL Liquid 5 ml PO Q4H PRN (Reason: Cough) metformin 1,000 mg tablet 1,000 mg PO BIDM Rx Instructions: 0830 & 1630 losartan 25 mg tablet 25 mg PO QAM albuterol sulfate 90 mcg/actuation HFA aerosol inhaler 2 puff INHALATION Q6H PRN (Reason: Shortness Of Breath Or Wheezing) duloxetine 30 mg capsule,delayed release(DR/EC) 30 mg PO BID rivastigmine 9.5 mg/24 hour patch 24 hour 1 patch topical QAM Rx Instructions: REMOVE OLD PATH BEFORE REPLACING NEW ONE. Incruse Ellipta 62.5 mcg/actuation blister with device 1 inh INHALATION QAM glimepiride 1 mg Tablet 1 mg PO DAILY carbidopa-levodopa 25-100 mg tablet See Rx Instructions .ROUTE .COMPLEX Rx Instructions: TAKES 2 TABS QAM, THEN 1.5 TABS AT 1200, 1600 & 2000 clopidogrel 75 mg Tablet 75 mg PO QAM Qty: 30 0RF ipratropium-albuterol 0.5 mg-3 mg(2.5 mg base)/3 mL solution for nebulization 3 ml INHALATION QID bisoprolol-hydrochlorothiazide 2.5-6.25 mg tablet 1 tab PO DAILY Discharge Orders: Discharge Order (Routine); Ordered 12/13/22 Ordered By: Kyle Schwartz Admission Data Admit Date/Time: 12/10/22 16:46 Attending Provider: Kyle Schwartz Admit Provider: Toy Farmer Primary Care Provider: Jag Stover Other Providers: Toy Farmer ; Akira Chavarria ; Cory Luther ; Cheryl Mendoza ; Caes Alvarado ; Cheryl Ruelas ; Delgado Lee ; Ab De Souza ; Julio Mckinney ; Jag Benitez ; Deisy Romeo ; Baljit Leonard ; Nael Sims ; Kin Stewart ; True Ramos ; Dotty Monge ; Luiz West Other Interventions: Discharge Summary Assessment (RN) Last Done: 12/13/22 09:30
== END 2022-12-13 09:58 | disposition home health service (06) | DRG 57 ==
LOC: ED 23:41 → EDINP 23:41 → 2N 12-10 16:44 → SUATTDRO 12-10 16:46